=== PATIENT | male | born 1965 | race Hispanic/Latino ===

== ENCOUNTER 2017-04-13 11:46 | Emergency (ER) | payer MEDICARE, OTHER | END 2017-04-13 13:16 | disposition home or self-care (01) | LOC: ERS 11:46 | DX: H61.23 Impacted cerumen, bilateral (principal); J30.9 Allergic rhinitis, unspecified; E78.00 Pure hypercholesterolemia, unspecified; I10 Essential (primary) hypertension; J44.9 Chronic obstructive pulmonary disease, unspecified; Z79.82 Long term (current) use of aspirin; Z79.4 Long term (current) use of insulin; Z79.899 Other long term (current) drug therapy | CPT/HCPCS: 99282 ==

== ENCOUNTER 2017-04-18 17:36 | Emergency (ER) | payer MEDICARE, MEDICAID ==
--- NOTE | 2017-04-18 18:51 | RAD ---
RIGHT FEMUR TWO VIEWS: 04/18/17 HISTORY: 51-year-old male with mid femur pain following a fall. IMPRESSION: No fracture, dislocation, or other significant acute osseous abnormality. POS: [facility]
[2017-04-18] MEDS ORDERED: Ketorolac Tromethamine 30 MG/ML VIAL ONE (18:56)
== END 2017-04-18 18:40 | disposition home or self-care (01) ==
LOC: ERS 17:36
DX: M79.651 Pain in right thigh (principal); E11.9 Type 2 diabetes mellitus without complications; J44.9 Chronic obstructive pulmonary disease, unspecified; I10 Essential (primary) hypertension; E78.00 Pure hypercholesterolemia, unspecified; I25.2 Old myocardial infarction; Z79.4 Long term (current) use of insulin; Z79.82 Long term (current) use of aspirin; Z79.899 Other long term (current) drug therapy; W06.XXXA Fall from bed, initial encounter
CPT/HCPCS: 96374; J1885

== ENCOUNTER 2017-04-19 23:49 | Observation (INO) | payer MEDICARE, MEDICAID ==
[2017-04-20 00:21] LABS: #Basophils 0.1 thou/uL (0.0-0.2); #Eosinphils 0.1 thou/uL (0.0-0.7); #Lymphocytes 2.1 thou/uL (1.20-3.40); #Monocytes 0.4 thou/uL (0.11-0.59); #Neutrophils 3.6 thou/uL (1.40-6.50); %Basophils 0.8 % (0.0-1.0); %Eosinophils 1.5 % (0.0-10.0); %Lymphocytes 33.7 % (21.0-51.0); %Monocytes 6.3 % (0.0-10.0); Hematocrit 41.3 % (42.0-52.0); Mean Platelet Volume 7.7 fL (7.4-10.4); White Blood Cell (WBC) Count 6.2 thou/uL (4.8-10.8)
[2017-04-20] MEDS ORDERED: diphenhydrAMINE 50 MG/ML VIAL ONE (00:31)
[2017-04-20] MEDS ORDERED: Haloperidol Lactate 5 MG/ML VIAL ONE (00:31)
[2017-04-20 00:40] LABS: ALT (SGPT) 36 U/L (8-55); AST (SGOT) 34 U/L (5-34); Alkaline Phosphatase 43 U/L (40-150); Anion Gap 16 mmol/L (10-20); BUN (Urea Nitrogen) 27 mg/dL (8.4-25.7); Bilirubin, Total 0.3 mg/dL (0.2-1.2); Calc. Creatinine Clearance 0 mL/min (70-130); Calcium 8.9 mg/dL (7.8-10.44); Carbon Dioxide 21 mmol/L (22-29); Chloride 101 mmol/L (98-107); Estimated GFR-MDRD 30; Globulin 3.6 g/dL (2.4-3.5); Magnesium 2.3 mg/dL (1.6-2.6); Protein, Total 7.5 g/dL (6.0-8.3)
[2017-04-20 00:42] LABS: Acetaminophen Less than 6.0 mcg/mL (10.0-30.0); Salicylate Less than 8.0 mg/dL (15.0-30.0)
[2017-04-20 00:43] LABS: Anion Gap 6 mmol/L (-14-95); T. Carbon Dioxide 25.8 mmol/L (1.0-85.0); pH (Venous) 7.374 (7.35-7.45)
[2017-04-20] MEDS ORDERED: HumaLOG 300 UNITS/3 ML VIAL SC SCH ×2 (01:15→05:30)
[2017-04-20 01:19] LABS: Bilirubin Negative (Negative); Blood, Urine Moderate (Negative); Glucose, Urine (Dipstick) >=1000 mg/dL (Negative); Ketone, Urine Negative (Negative); Nitrite Negative (Negative); Protein, Urine (Dipstick) 30 mg/dL (Neg-Trace); Urobilinogen 0.2 mg/dL (0.2-1.0)
[2017-04-20 01:24] LABS: Bacteria/HPF None Seen HPF (None Seen); Hyaline Casts/LPF 0-3 HYALINE CAST LPF (0-3 Hyaline); RBC/HPF 0-3 HPF (0-3); Squamous Epithelial None Seen HPF (0-3); WBC/HPF None Seen HPF (0-3)
[2017-04-20] MEDS ORDERED: Multivitamins, Adult 10 ML, Folic Acid 1 MG, Thiamine HCl 100 MG in Dextrose 5 %-0.45 %... IV SCH ×4 (01:30)
[2017-04-20 01:39] LABS: Amphetamine Not Detected (NotDetected); Methadone Not Detected (NotDetected); Methamphetamine Not Detected (NotDetected)
[2017-04-20] MEDS ORDERED: Insulin Regular 300 UNITS/3 ML VIAL ONE (04:00)
[2017-04-20] MEDS ORDERED: Ondansetron ODT 4 MG TAB PO PRN (05:17)
[2017-04-20] MEDS ORDERED: HumaLOG 300 UNITS/3 ML VIAL SC PRN (05:17)
[2017-04-20] MEDS ORDERED: Ondansetron HCl/PF 4 MG/2 ML Vial IVP PRN ×2 (05:17→05:20)
[2017-04-20] MEDS ORDERED: Dextrose 50% Abboject 50 ML SYRINGE SLOW IVP PRN (05:17)
[2017-04-20] MEDS ORDERED: Acetaminophen 650 MG Suppository PR PRN (05:17)
[2017-04-20] MEDS ORDERED: Acetaminophen 325 MG TAB PO PRN ×2 (05:17→05:20)
[2017-04-20] MEDS ORDERED: Calcium Carbonate 500 MG ChewTAB PO PRN (05:17)
[2017-04-20] MEDS ORDERED: Dextrose 5% in Water 1,000 ML IV PRN (05:17)
[2017-04-20] MEDS ORDERED: Ondansetron ODT 4 MG TAB SL PRN (05:20)
[2017-04-20] MEDS ORDERED: Oxazepam 10 MG CAP PO SCH (05:30)
[2017-04-20] MEDS ORDERED: Lactated Ringer's 1,000 ML IV SCH (05:30)
[2017-04-20 06:18] LABS: Anion Gap 12 mmol/L (10-20); BUN (Urea Nitrogen) 25 mg/dL (8.4-25.7); Calc. Creatinine Clearance 0 mL/min (70-130); Calcium 8.6 mg/dL (7.8-10.44); Carbon Dioxide 22 mmol/L (22-29); Chloride 110 mmol/L (98-107); Estimated GFR-MDRD 36
--- NOTE | 2017-04-20 07:51 | CT ---
PRELIMINARY REPORT/[facility]/EMERGENCY AFTER HOURS PROCEDURE: EXAM: CT Head Without Intravenous Contrast CLINICAL HISTORY: ETOH, fall TECHNIQUE: Axial computed tomography images of the head/brain without intravenous contrast. COMPARISON: No relevant prior studies available. FINDINGS: Brain: No acute findings. No hemorrhage. No significant white matter disease. No edema. Ventricles: No acute findings. No ventriculomegaly. Bones/joints: No acute findings. No acute fracture. Soft tissues: No acute findings. Sinuses: Unremarkable as visualized. No acute sinusitis. Mastoid air cells: Unremarkable as visualized. No mastoid effusion. IMPRESSION: No acute intracranial pathology. Thank you for allowing us to participate in the care of your patient. Dictated and Authenticated by: Jennifer Salomon MD 04/20/2017 12:36 AM Central Time ([place] \T\ [place]) FINAL REPORT NONCONTRAST HEAD CT: Date: 04/20/17 HISTORY: Heavy ETOH use. Intoxicated, fall. COMPARISON: 02/12/15. TECHNIQUE: Noncontrast head CT is performed from skull base to skull vertex. FINDINGS: This report is in agreement with the preliminary report by Teddy. No intracranial post-traumatic sequ liz. POS: [facility]
[2017-04-20] MEDS: Sodium Chloride 0.9% 1,000 ML IV SCH ×2 (08:15→18:22)
[2017-04-20] MEDS: Fenofibrate Nanocrystallized 145 MG TAB PO SCH (08:16)
[2017-04-20] MEDS: Aspirin 81 mg Enteric Coated Tablet PO SCH (08:16)
[2017-04-20] MEDS: Gabapentin 300 MG CAP PO SCH ×2 (08:16→21:58)
[2017-04-20] MEDS: Carvedilol 3.125 MG TAB PO SCH ×2 (08:17→21:57)
[2017-04-20] MEDS: Insulin Detemir 100 UNITS/ML 100 UNITS in Admixture Fee 1 EACH SC SCH (08:21)
--- NOTE | 2017-04-20 08:35 | RAD ---
1 VIEW CHEST: Date: 04/20/17 COMPARISON: 03/31/16. HISTORY: Altered mental status. FINDINGS: Portable supine chest demonstrates left-sided transvenous defibrillator, unchanged in position. Ther e are sternotomy wires. Normal cardiac silhouette. Pulmonary vessels and hilum are normal. Costophre kofi angles are clear. No mass. No consolidation. No pneumothorax or osseous abnormalities. IMPRESSION: No acute cardiopulmonary process. POS: [facility]
--- NOTE | 2017-04-20 12:26 | HP-2 ---
DATE OF ADMISSION: 04/20/2017 CODE STATUS: FULL. PRIMARY CARE PROVIDER: [facility]. ATTENDING: Zayra Uribe M.D. RESIDENT: Dr. Mo Soto, PGY1. HISTORIAN: The patient and ER doctor. CHIEF COMPLAINT: Alcohol intoxication and fall. HISTORY OF PRESENT ILLNESS: This is a 51-year-old male that comes in after stating he had too much to drink, said he drank 12 beers and states that his daughter called the EMS because he fel l down. The patient states he cannot remember falling or remember much what else happened. He is a lert and oriented x3 and denies any other symptoms at this time. REVIEW OF SYSTEMS: All review of systems not listed in the HPI except for back pain, reports having back pain, but it is a chronic problem are negative at this time. PAST MEDICAL HISTORY: Diabetes, hypertension, coronary artery disease, normocytic anemia, systolic heart failure with an EF of 45%, mixed hyperlipidemia, and type 2 diabetes mellitus, it is with a di abetic neuropathy. PAST SURGICAL HISTORY: Open heart surgery in 2001 and right knee surgery in the past. ALLERGIES: No known drug allergies. MEDICATIONS: He takes aspirin 81 mg, carvedilol 3.125 mg 2 times daily, Crestor 20 mg 1 time daily, fenofibrate 1 time daily, ferrous sulfate 1 tab twice daily, gabapentin 600 mg twice daily. He sugey es Nitrostat 0.4 mg sublingual as needed for chest pain, Lantus 100 units subcu in the morning and 1 00 units subcu in the evening. He also takes NovoLog 20 units for each meal. FAMILY HISTORY: Dad, he is , killed from [facility], mom with diabetes. SOCIAL HISTORY: He smoked for 2 years, but quit a long time ago. Alcohol use: Drank 12 beers last night and drinks about 2 days a week. Drugs: No illicit drug use reported. PHYSICAL EXAMINATION: VITAL SIGNS: Blood pressure is 119/77, pulse is 97, respirations 18, temperature is 97.6, pulse ox 98% on room air. GENERAL: He is alert and oriented x3, well-developed, obese. He is somewhat altered, sometimes ans wers questions appropriately, but then goes off on tangents likely due to alcohol intoxication. EYES: Pupils are dilated, but reactive. ENT: Oropharynx within normal limit. NECK: Supple, no lymphadenopathy, no thyromegaly, no bruits. CARDIOVASCULAR: Regular rate and rhythm. No murmurs, no gallops. Radial pulses, pedal pulses palp ated bilaterally. RESPIRATORY: Normal breathing effort, no retractions. LUNGS: Clear to auscultation bilaterally. No wheezes or crackles. SKIN: Warm and dry. No lesions, no bruising noted. ABDOMEN: Soft. He is mildly tender to palpation in the epigastric area. Bowel sounds are in all 4 quadrants. Umbilical hernia is noted. His belly is somewhat distended and hard when palpating. MUSCULOSKELETAL: Moves all extremities, full range of motion bilaterally. NEUROLOGIC: No focal neuro deficits. Sensation within normal limit. PSYCHIATRIC: He is somewhat altered likely due to alcohol. LABORATORY DATA: White blood cell count 6.2, hemoglobin 13.4, hematocrit 41.3, MCV of 81.1, platele ts are 237. Sodium is 134, potassium is 4.2, chloride is 101, bicarb 21, BUN is 27, creatinine is 2 .32. Blood glucose was 562. Point of care glucoses was 442, then 395, and then 517. Calcium 8.9, total protein 7.5, albumin is 3.6, total bilirubin 0.3, alkaline phosphatase 43, AST 34 , ALT 36. His alcohol level was 333. His urine drug screen was positive for cocaine. His magnesiu m was 2.3. His UA showed moderate blood, 30 protein, 100 of glucose, red blood cells 83, and white blood cells none, bacteria none. All other UA was negative. His VBG: pH was 7.7. His CO2 was 42, his O2 was 136, and his bicarbonate was 24.5. ASSESSMENT AND PLAN: 1. Hyperglycemia secondary to excessive carbohydrates from beer. We will give him 30 of NovoLog. I will start his home dose of Levemir 100 units b.i.d. per home regimen. We will start him on aggre ssive sliding scale insulin. We will start him on normal saline at a rate of 100. We will start hi m on a consistent carb diet. I am going to check q.4 h. Accu-Cheks and adjust as needed. 2. Acute alcohol intoxication, we will put him on ASE protocol. We will start him on Serax p.r.n. We will give him thiamine b.i.d. We will give him normal saline at a rate of 100. 3. Cocaine abuse. We will just continue to monitor for withdrawal symptoms. 4. Chronic kidney disease 3. His creatinine seems to be at baseline from previous hospital visits for repeat BMP. We will continue normal saline at a rate of 100. 5. Systolic heart failure. We will continue home medication, have him on intravenous fluids a lowe r than a maintenance range. We will need to watch for fluid overload status. Past echo from 2013 s hows ejection fraction of 40%-45%. 6. Hypertension. Continue home medications. 7. Normocytic anemia. CBC is stable. We will continue to monitor as needed.
[2017-04-20 15:39] VITALS: BMI 27.9
--- NOTE | 2017-04-20 16:21 | HP ---
DATE OF SERVICE: 04/20/2017 HISTORY OF PRESENT ILLNESS: The patient is a 51-year-old male with past medical history of diabetes , hypertension, coronary artery disease, systolic CHF, and chronic kidney disease stage 3, who prese nted to the ER with altered mental status. The patient is unable to provide most of the history to his altered mental status. The patient per reports was taken to the ER because he suffered a fall. In the ER, his blood alcohol level was over 300. Patient was also noted to be hyperglycemic and re ceived several doses of short-acting insulin. UDS was positive for cocaine. Patient has been place d on ASE protocol and spent on gentle IV fluids secondary to his heart failure. We will repeat an a lcohol level this morning. Once it returns to normal, he may be able to be discharged. CT of the b rain showed no acute processes. I have reviewed and discussed the H\T\P with Dr. Soto. Repeated pertinent portions of the history and physical exam by myself and agreed with the assessment and plan as documented. Please see the resident's history and physical, assessment and plan.
[2017-04-20] MEDS ORDERED: Insulin Detemir 100 UNITS/ML 100 UNITS in Admixture Fee 1 EACH SC SCH (21:00)
[2017-04-21] MEDS: Sodium Chloride 0.9% 1,000 ML IV SCH (05:16)
--- NOTE | 2017-04-21 08:40 | PDOC.FM ---
- Subjective Subjective: The patient denies any complaints this morning. He reports that he no longer feels drunk. He denies any abdominal pain, nausea, vomiting, dizziness, blurry vision, chest pain, lightheadedness. He is tolerating PO well and is able to walk without difficulty. - Objective MAR Reviewed: Yes Vital Signs & Weight: Vital Signs (12 hours) Temp Pulse Resp BP BP BP Pulse Ox 04/21/17 08:00 96.6 F L 79 18 132/76 96 04/21/17 04:00 97.9 F 81 18 126/67 99 04/21/17 00:00 98.5 F 87 18 128/64 95 Weight Weight 81 kg I&O: 04/20/17 04/21/17 04/22/17 06:59 06:59 06:59 Intake Total 3260 100 Output Total 4650 Balance -1390 100 Result Diagrams: 04/20/17 00:12 04/20/17 05:53 Phys Exam - Physical Examination Constitutional: NAD HEENT: moist MMs Respiratory: no wheezing, no rales, no rhonchi, clear to auscultation bilateral Cardiovascular: RRR, no significant murmur, no rub Gastrointestinal: soft, non-tender, no distention, positive bowel sounds Musculoskeletal: no edema, pulses present Neurological: non-focal, moves all 4 limbs Psychiatric: normal affect, A&O x 3 Dx/Plan (1) Acute alcohol intoxication Code(s): F10.929 - ALCOHOL USE, UNSPECIFIED WITH INTOXICATION, UNSPECIFIED Status: Acute Qualifiers: Complication of substance-induced condition: with unspecified complication Qualified Code(s): F10.929 - Alcohol use, unspecified with intoxication, unspecified Plan: The patient was acutely intoxicated yesterday with blood alcohol level of 333, that only went down to 169 later that day. This AM his level was less than 10. The patient is no longer intoxicated and is feeling much better. He is able to ambulate, tolerate PO, and protect his airway. s/p fluid bolus in the ED with a banana bag and NS @ 100 -d/c today -Rf Technician about alcohol cessation (2) Hyperglycemia Code(s): R73.9 - HYPERGLYCEMIA, UNSPECIFIED Status: Acute Plan: Pt was initially admitted with a Glucose of 562 This improved s/p fluids and insulin -Continue pt home insulin dose -NS @ 100 Hyperglycemia has resolved and glucose has been in 100s (3) Cocaine abuse Code(s): F14.10 - COCAINE ABUSE, UNCOMPLICATED Status: Acute Plan: Pt has history of cocaine abuse -student loan counselor about cessation (4) Diabetes mellitus, type II Status: Acute Qualifiers: Diabetes mellitus complication status: with unspecified complications Diabetes mellitus usp insulin use: with usp use Qualified Code(s) : E11.8 - Type 2 diabetes mellitus with unspecified complications; Z79.4 - halfway (current) use of insulin; Z79.4 - rn long term care (current) use of insulin; Z79.4 - halfway (current) use of insulin; Z79.4 - halfway (current) use of insulin Plan: Pt is insulin dependent diabetes -continue home insulin regimen -SSI -Diabetic diet -Accuchecks ACHS (5) CHF (congestive heart failure) Code(s): I50.9 - HEART FAILURE, UNSPECIFIED Status: Acute Qualifiers: Congestive heart failure type: systolic Congestive heart failure chronicity : chronic Qualified Code(s): I50.22 - Chronic systolic (congestive) heart failure Plan: EF 45% -NS @ 100, will stop fluids today (6) Chronic kidney disease, stage 3 Status: Acute Plan: Pt has CKD stage 3 -Stable, will monitor (7) Hypertension Code(s): I10 - ESSENTIAL (PRIMARY) HYPERTENSION Status: Acute Qualifiers: Hypertension type: essential hypertension Qualified Code(s): I10 - Essential (primary) hypertension Plan: Continue home carvedilol
[2017-04-21] MEDS: Fenofibrate Nanocrystallized 145 MG TAB PO SCH (08:43)
[2017-04-21] MEDS: Gabapentin 300 MG CAP PO SCH (08:44)
[2017-04-21] MEDS: Aspirin 81 mg Enteric Coated Tablet PO SCH (08:44)
[2017-04-21] MEDS: Carvedilol 3.125 MG TAB PO SCH (08:44)
[2017-04-21] MEDS: Insulin Detemir 100 UNITS/ML 100 UNITS in Admixture Fee 1 EACH SC SCH (09:15)
--- NOTE | 2017-04-21 11:43 | ADD-PRG ---
DATE OF SERVICE: 04/21/2017 This is an addendum to the note of Dr. Carmen Rodriguez. Mr. Durham is a pleasant 51-year-old male who was admitted acutely intoxicated 1-2 days ago . He also at that time presented with JUANCHO with a BUN 27, creatinine 2.32. His blood glucose was no randolph to be 562. He was admitted for fluids, diabetic control and protocols for sedation given his al coholism. He did well during the hospitalization and had no complications. His blood glucose was b rought down into the near normal range of 115-122 upon discharge. He states he does not drink daily and occasionally though has been drinking. He was counseled regarding this. Also, his creatinine dropped down to 1.94. He will be discharged to followup in our clinic as needed.
[2017-04-21 12:08] VITALS: BP 144/81; TEMP 98.4
--- NOTE | 2017-04-21 20:00 | DIS-2 ---
DATE OF ADMISSION: 04/20/2017 DATE OF DISCHARGE: 04/21/2017 ADMITTING RESIDENT: Mo Soto MD DISCHARGE RESIDENT: Carmen Rodriguez MD ADMITTING ATTENDING: Zayra Uribe M.D. DISCHARGE ATTENDING: Breezy House MD CONSULTATIONS: None. PROCEDURES: None. IMAGING: Brain CT showed no acute intracranial pathology. Chest x-ray showed no acute cardiopulmon jr process. PRIMARY DIAGNOSIS: 1. Acute alcohol intoxication. 2. Hyperglycemia. SECONDARY DIAGNOSES: 1. Polysubstance abuse. 2. Diabetes type 2. 3. Congestive heart failure with reduced ejection fraction. 4. Chronic kidney disease stage III. 5. Hypertension. DISCHARGE MEDICATIONS: 1. Aspirin 81 mg p.o. daily. 2. Carvedilol 3.125 mg p.o. b.i.d. 3. Fenofibrate 160 mg p.o. daily. 4. Gabapentin 600 mg p.o. b.i.d. 5. Levemir 100 units subcutaneous b.i.d. 6. Nitroglycerin 0.4 mg sublingual every 5 minutes p.r.n. chest pain. 7. Rosuvastatin 20 mg p.o. at bedtime. DISCONTINUED MEDICATIONS: None. HISTORY OF PRESENT ILLNESS AND HOSPITAL COURSE: This is a 51-year-old gentleman with past medical h istory of hypertension, diabetes, congestive heart failure who presented to the Emergency Room with acute alcohol intoxication, was found to have a blood glucose level of 562 as well as an alcohol lev el of 333 and was cocaine positive on his UDS. The patient had altered mental status and was diffic ult to arouse initially as he was acutely intoxicated. The patient was given thiamine and banana ba g in the ED and then he was gently fluid resuscitated with NS at 100 as he has a history of heart fa ilure. The patient's blood sugar was followed and continued to go down over the next 24 hours until it normalized to the 80s to low 100s. The patient was given his home dose of insulin as well as sl iding scale as needed. The patient had an alcohol level that was rechecked about 9 hours after admi ssion and was found to be 169 and then it was rechecked the next day and it was found to be less john n 10. The patient was asymptomatic at this point, able to carry on conversation, alert and oriented x3, able to ambulate without difficulty, tolerating p.o. well, and his hyperglycemia resolved. He was counseled on the importance of not drinking heavily or using cocaine and was discharged in good condition. DISPOSITION: Stable. DISCHARGE INSTRUCTIONS: 1. Location: Home. 2. Diet: Diabetic diet. 3. Activity: No restrictions. 4. Follow up with [facility] within 2 weeks.
== END 2017-04-21 12:15 | disposition home or self-care (01) ==
LOC: ERS 23:49 → ONC 04-20 04:26
PROVIDERS: ADMIT Family Medicine; ATTEND Family Medicine
DX: F10.129 Alcohol abuse with intoxication, unspecified (principal); E11.40 Type 2 diabetes mellitus with diabetic neuropathy, unspecified; E11.22 Type 2 diabetes mellitus with diabetic chronic kidney disease; E11.65 Type 2 diabetes mellitus with hyperglycemia; I13.0 Hypertensive heart and chronic kidney disease with heart failure and stage 1 through stage 4 chronic kidney disease, or unspecified chronic kidney disease; I50.20 Unspecified systolic (congestive) heart failure; N18.3 Chronic kidney disease, stage 3 (moderate); W19.XXXA Unspecified fall, initial encounter; D64.9 Anemia, unspecified; E78.2 Mixed hyperlipidemia; F14.10 Cocaine abuse, uncomplicated; Z79.4 Long term (current) use of insulin; Z79.82 Long term (current) use of aspirin; Z79.899 Other long term (current) drug therapy; Z98.890 Other specified postprocedural states; Z87.891 Personal history of nicotine dependence; Z83.3 Family history of diabetes mellitus
CPT/HCPCS: 70450; 71010; 80048; 80053; 80306; 80307 ×3; 82010; 82330; 82435; 82803; 82962 ×2; 83735; 84132; 84295; 85014; 85025; 94760; 96361 ×3; 96365; 96366; 96372; 96374; 96375; 99291; G0378 ×2; 36415; 36416; 81003; 81015; J1200; J1630; J1815; J3411; J7042; J7050

== ENCOUNTER 2017-08-05 11:16 | Emergency (ER) | payer MEDICARE, MEDICAID | END 2017-08-05 13:39 | disposition home or self-care (01) | LOC: ERS 11:16 | DX: R10.30 Lower abdominal pain, unspecified (principal); E11.9 Type 2 diabetes mellitus without complications; J44.9 Chronic obstructive pulmonary disease, unspecified; I10 Essential (primary) hypertension; I25.2 Old myocardial infarction; E78.00 Pure hypercholesterolemia, unspecified; Z79.899 Other long term (current) drug therapy; Z79.82 Long term (current) use of aspirin; Z79.4 Long term (current) use of insulin | CPT/HCPCS: 99284 ==

== ENCOUNTER 2017-10-10 05:06 | Inpatient (IN) | payer MEDICARE, MEDICAID ==
[2017-10-10 05:38] LABS: #Basophils 0.1 thou/uL (0.0-0.2); #Eosinphils 0.1 thou/uL (0.0-0.7); #Lymphocytes 1.9 thou/uL (1.20-3.40); #Monocytes 0.3 thou/uL (0.11-0.59); #Neutrophils 5.7 thou/uL (1.40-6.50); %Basophils 0.7 % (0.0-1.0); %Lymphocytes 24.1 % (21.0-51.0); %Monocytes 3.4 % (0.0-10.0); %Neutrophils 70.8 % (42.0-75.0); Hemoglobin 15.3 g/dL (14.0-18.0); Mean Corpuscular HGB CONC 32.6 g/dL (32.0-36.0); Mean Corpuscular Hemoglobin 26.3 pg (27.0-31.0); Mean Corpuscular Volume 80.6 fl (80.0-94.0); Mean Platelet Volume 8.3 fL (7.4-10.4); Platelet Count 286 thou/uL (130-400); RBC Distribution Width 13.6 % (11.5-14.5); Red Blood Cell (RBC) Count 5.82 mill/uL (4.70-6.10)
[2017-10-10 05:55] LABS: CKMB 3.9 ng/mL (0-6.6); Troponin I 0.011 ng/mL (< 0.028)
[2017-10-10] MEDS ORDERED: Dextrose 50% Abboject 50 ML SYRINGE ONE (06:09)
[2017-10-10 06:10] LABS: ALT (SGPT) 30 U/L (8-55); AST (SGOT) 38 U/L (5-34); Albumin 4.4 g/dL (3.5-5.0); Alkaline Phosphatase 57 U/L (40-150); Anion Gap 14 mmol/L (10-20); BUN (Urea Nitrogen) 27 mg/dL (8.4-25.7); Bilirubin, Total 0.4 mg/dL (0.2-1.2); CK (CPK) 380 U/L (30-200); Calc. Creatinine Clearance 0 mL/min (70-130); Calcium 9.7 mg/dL (7.8-10.44); Carbon Dioxide 26 mmol/L (22-29); Chloride 103 mmol/L (98-107); Estimated GFR-MDRD 34; Globulin 4.4 g/dL (2.4-3.5); Glucose 72 mg/dL (70-105); Lipase 39 U/L (8-78); Potassium 4.2 mmol/L (3.5-5.1); Protein, Total 8.8 g/dL (6.0-8.3); Sodium 139 mmol/L (136-145)
[2017-10-10 06:46] LABS: Bilirubin Negative (Negative); Blood, Urine Small (Negative); Clarity CLEAR (Clear); Glucose, Urine (Dipstick) 250 mg/dL (Negative); Leukocyte Negative (Negative); Nitrite Negative (Negative); Protein, Urine (Dipstick) 100 mg/dL (Neg-Trace); Specific Gravity, Urine 1.008 (1.002-1.036); Urobilinogen 0.2 mg/dL (0.2-1.0)
[2017-10-10 06:49] LABS: Bacteria/HPF None Seen HPF (None Seen); Hyaline Casts/LPF 0-3 HYALINE CAST LPF (0-3 Hyaline); RBC/HPF 0-3 HPF (0-3); Squamous Epithelial None Seen HPF (0-3); WBC/HPF None Seen HPF (0-3)
[2017-10-10] MEDS ORDERED: Acetaminophen 325 MG TAB PO PRN (07:57)
[2017-10-10] MEDS ORDERED: Ondansetron HCl/PF 4 MG/2 ML Vial IVP PRN (07:57)
[2017-10-10] MEDS ORDERED: Ondansetron ODT 4 MG TAB SL PRN (07:57)
--- NOTE | 2017-10-10 08:33 | RAD ---
PORTABLE UPRIGHT FRONTAL CHEST RADIOGRAPH: DATE: 10/10/17. COMPARISON: 04/20/17. HISTORY: Chest pain. FINDINGS: Stable midline sternotomy wires and dual-lead transvenous AICD. Lungs appear clear. IMPRESSION: No acute findings. POS: [facility]
[2017-10-10 09:05] LABS: Troponin I 0.012 ng/mL (< 0.028)
[2017-10-10 09:33] LABS: Lactic Acid 1.4 mmol/L (0.5-2.2)
[2017-10-10] MEDS ORDERED: Senokot 8.6 MG TAB PO PRN (09:43)
[2017-10-10] MEDS ORDERED: Nitroglycerin 0.4 MG TAB (25 Tab Bottle) PO PRN (09:43)
[2017-10-10] MEDS ORDERED: Ondansetron ODT 4 MG TAB PO PRN (09:43)
[2017-10-10] MEDS ORDERED: Milk Of Magnesia 30 ML UDCUP PO PRN (09:43)
[2017-10-10] MEDS ORDERED: Dextrose 50% Abboject 50 ML SYRINGE SLOW IVP PRN (09:47)
[2017-10-10] MEDS ORDERED: Dextrose 5% in Water 1,000 ML IV PRN (09:47)
[2017-10-10] MEDS: Dextrose 10% in Water 1,000 ML IV SCH ×2 (10:44→19:12)
[2017-10-10 12:43] LABS: Troponin I Less than 0.010 ng/mL (< 0.028)
--- NOTE | 2017-10-10 14:20 | HP ---
DATE OF ADMISSION: 10/10/2017 CHIEF COMPLAINT: Chest pain. HISTORY OF PRESENT ILLNESS: This is a 52-year-old white male with a known history of louis ry artery disease and the pacemaker placement. He has a known history of type 2 diabetes mellitus, p oorly controlled. The patient was in his usual state of health until this morning. At around 4:00 a .m., he woke up with a sudden onset of chest pain with chills and shivers. The patient was noted to have low sugars in the morning, and he basically came to the ER, as the patient woke up with a chest pain, which he never had in the past. When the patient presented to the ER, his blood sugars were in 50s. So, he was started on D50 per hyperglycemia protocol and was closely monitored. He had an EKG , which did not show any evidence of acute ST-segment changes and his troponins were normal. So, the patient was closely monitored, because of the acute onset of chest pain. Patient denies having any nausea or vomiting at this time. No abdominal pain. He was told by his primary care physicians to k eep increasing his insulin because of poor control of blood sugars. He takes 100 units of insulin wh ich he started almost 3 weeks ago, but last night he had some salads, which shows low calorie and john t is why he feels his sugars went down. PAST MEDICAL HISTORY: 1. History of congestive heart failure. 2. History of chronic kidney disease, stage 3. 3. History of hypertension. 4. History of type 2 diabetes mellitus. 5. History of cocaine abuse in the past. 6. History of chronic alcoholism. PAST SURGICAL HISTORY: History of pacemaker placement, history of CABG 4-vessel disease, history of left knee surgery, history of appendectomy. SOCIAL HISTORY: Patient has history of drug abuse in the past. He used to take cocaine. He has a k nown history of smoking and known history of alcohol also. FAMILY HISTORY: No significant family history of coronary artery disease, but otherwise, the patient is not able to give any more history about the family. ALLERGIES: No known drug allergies. HOME MEDICATIONS: 1. Aspirin 81 mg p.o. daily. 2. Coreg 3.125 mg p.o. daily. 3. Fenofibrate 160 mg p.o. daily. 4. Gabapentin 600 mg p.o. b.i.d. 5. Insulin 100 units he takes in the morning and 100 units in the evening of Levemir. 6. Rosuvastatin 20 mg p.o. daily. REVIEW OF SYSTEMS: All 12 systems are reviewed with the patient thoroughly and found to be negative at this time. The following complete review of systems was negative, unless otherwise mentioned in t he HPI or below: Constitutional: Weight loss or gain, ability to conduct usual activities. Skin: Rash, itching. Eyes: Double vision, pain. ENT/Mouth: Nose bleeding, neck stiffness, pain, tendern ess. Cardiovascular: Palpitations, dyspnea on exertion, orthopnea. Respiratory: Shortness of jasper th, wheezing, cough, hemoptysis, fever, or night sweats. Gastrointestinal: Poor appetite, abdominal pain, heartburn, nausea, vomiting, constipation, or diarrhea. Genitourinary: Urgency, frequency, d ysuria, nocturia. Musculoskeletal: Pain, swelling. Neurologic/Psychiatric: Anxiety, depression. Allergy/Immunologic: Skin rash, bleeding tendency. PHYSICAL EXAMINATION: VITAL SIGNS: Blood pressures are 123/80, heart rate is 70, respiratory rate is 18, saturation is 98% on room air. GENERAL: The patient is moderately built and moderately nourished, does not appear to be in acute di stress at this time, is alert and oriented x3. HEENT: Atraumatic, normocephalic. PERRLA. Extraocular movements are intact. Oral mucosa is pink a nd moist. CARDIOVASCULAR: S1, S2 normal. No murmurs, rubs, or gallops. LUNGS: Bilateral air entry is equal. No wheezing, no crackles. ABDOMEN: Soft and nontender. No guarding, no rebound tenderness. Bowel sounds normal. MUSCULOSKELETAL: No calf tenderness. No pedal edema. No joint tenderness. No joint swelling. SKIN: No cyanosis, no erythema, no rash, no pallor. CENTRAL NERVOUS SYSTEM: Cranial nerve examination II-XII are intact. No focal deficit noted. PSYCHIATRIC: No suicidal ideation, no signs of holly, no signs of depression, no signs of agitation was noted. LYMPHATICS: No evidence of any generalized lymph nodes were noted. NECK: No thyromegaly. No JVD was noted. LABORATORY DATA: Sodium is 139, potassium is 4.2, BUN is 27, creatinine is 2.04. His blood sugar is 153. Troponin 0.012. WBC 8.0, hemoglobin 15.3, hematocrit 46.9, platelets are no rmal. UA was positive for blood sugars. No urine drug screen was done. Chest x-ray was done, unremarkable. EKG, no evidence of any ST-segment changes. ASSESSMENT: 1. Acute hypoglycemia. 2. Acute kidney injury. 3. Acute chest pain, rule out myocardial infarction. 4. History of coronary artery disease with coronary artery bypass grafting. 5. History of congestive heart failure. 6. Hypertension. PLAN: 1. Plan is to closely monitor this patient. We will continue to monitor his serial troponins every 6 hours and plan to do his cardiac stress test tomorrow, if the troponins remain negative. 2. The patient has hypoglycemia, so he is on D5 at this time. We will closely monitor. We will maurizio id any Levemir. He is on pretty high dose of 100 units Levemir. So, plan to closely monitor. This might take more than 2 midnights, but if the patient responds earlier with correction of his blood marcelo gars, plan to discharge him tomorrow. 3. The patient has history of coronary artery bypass grafting with no recent stress test was done. So, we will closely monitor. 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 4. Hypertension is well controlled. We will restart the patient's home medications. 5. The patient has history of hyperlipidemia. We will restart the patient's home medications, fenof ibrate and statin. 6. Deep venous thrombosis prophylaxis, Lovenox. I spent 75 minutes with this patient.
[2017-10-10 18:47] LABS: Cocaine Metabolite Screen Not Detected (NotDetected); Medtox Reader # READER 1; Methamphetamine Not Detected (NotDetected); Opiate Screen Not Detected (NotDetected); Phencyclidine (PCP) Not Detected (NotDetected); THC/Cannabinoid Screen Not Detected (NotDetected)
[2017-10-10 18:48] LABS: Amphetamine Not Detected (NotDetected); Barbiturates Screen Not Detected (NotDetected); Benzodiazepine Screen Not Detected (NotDetected); Medtox Control Line Valid? VALID (VALID); Methadone Not Detected (NotDetected); Oxycodone Screen Not Detected (NotDetected); Tricyclic Screen Not Detected (NotDetected)
[2017-10-10] MEDS: Rosuvastatin 20 MG TAB PO SCH (21:53)
[2017-10-10] MEDS: Famotidine 20 MG TAB PO SCH (21:53)
[2017-10-10] MEDS: Carvedilol 3.125 MG TAB PO SCH (21:54)
[2017-10-10] MEDS: Gabapentin 300 MG CAP PO SCH (21:54)
[2017-10-10] MEDS: HumaLOG 300 UNITS/3 ML VIAL SC PRN (22:08)
[2017-10-11 04:50] LABS: #Eosinphils 0.1 thou/uL (0.0-0.7); #Lymphocytes 1.6 thou/uL (1.20-3.40); #Monocytes 0.6 thou/uL (0.11-0.59); #Neutrophils 6.2 thou/uL (1.40-6.50); %Basophils 0.5 % (0.0-1.0); %Eosinophils 0.9 % (0.0-10.0); %Lymphocytes 18.8 % (21.0-51.0); %Monocytes 6.7 % (0.0-10.0); %Neutrophils 73.1 % (42.0-75.0); Hemoglobin 13.5 g/dL (14.0-18.0); Mean Corpuscular HGB CONC 33.5 g/dL (32.0-36.0); Mean Corpuscular Hemoglobin 27.2 pg (27.0-31.0); Mean Corpuscular Volume 81.3 fl (80.0-94.0); Platelet Count 243 thou/uL (130-400); RBC Distribution Width 13.4 % (11.5-14.5); Red Blood Cell (RBC) Count 4.97 mill/uL (4.70-6.10); White Blood Cell (WBC) Count 8.5 thou/uL (4.8-10.8)
[2017-10-11 05:04] LABS: Anion Gap 9 mmol/L (10-20); BUN (Urea Nitrogen) 16 mg/dL (8.4-25.7); Calc. Creatinine Clearance 59 mL/min (70-130); Calcium 8.8 mg/dL (7.8-10.44); Carbon Dioxide 24 mmol/L (22-29); Cardiac Risk 4.4 (Less than 4.5); Chloride 107 mmol/L (98-107); Cholesterol 136 mg/dl (< 200 Desired); Estimated GFR-MDRD 50; Glucose 158 mg/dL (70-105); HDL Cholesterol 31 mg/dL (>60 Neg Risk); LDL Cholesterol, Calculated 75 mg/dL; Potassium 3.7 mmol/L (3.5-5.1); Sodium 136 mmol/L (136-145); Triglycerides 150 mg/dL (Less than 150)
[2017-10-11] MEDS: Aspirin 81 mg Enteric Coated Tablet PO SCH (08:01)
[2017-10-11] MEDS: Enoxaparin Sodium 40 MG/0.4 ML SYRINGE SC SCH (08:01)
[2017-10-11] MEDS: Gabapentin 300 MG CAP PO SCH ×2 (08:01→21:09)
[2017-10-11] MEDS: Fenofibrate Nanocrystallized 145 MG TAB PO SCH (08:01)
[2017-10-11] MEDS ORDERED: Aspirin 325 MG TAB PO SCH (09:00)
[2017-10-11] MEDS ORDERED: Non-Formulary Item 1 EACH (Insulin Detemir 100 Units/Ml [Levemir] 50 UNIT) SC SCH (09:13)
[2017-10-11] MEDS: Carvedilol 3.125 MG TAB PO SCH ×2 (12:25→21:09)
[2017-10-11 13:01] VITALS: BMI 25.0
--- NOTE | 2017-10-11 13:06 | NM ---
NUCLEAR MEDICINE CARDIAC STRESS TEST WITH EJECTION FRACTION: HISTORY: Chest pain. CHF. Hypertension. Diabetes. COMPARISON: Multiple prior examinations, most recent in 2014. TECHNIQUE: Stress and rest was performed after the intravenous administration of 30 and 9 mCi technetium-99m ses tamibi intravenously, respectively. FINDINGS: Adequate left ventricular uptake of radiotracer. There is an inferolateral wall fixed defect. No reve rsible ischemia. There is hypokinesis of the inferior wall, as well as the inferior septum and latera l wall. The calculated ejection fraction is 45%. IMPRESSION: Fixed inferolateral wall defect with hypokinesis. No evidence of reversible ischemia. POS: [facility]
[2017-10-11] MEDS ORDERED: ADENOSINE 60 MG/20 ML VIAL ONE (15:44)
--- NOTE | 2017-10-11 16:36 | PDOC.PN ---
- Subjective Encounter Start Date: 10/11/17 Encounter Start Time: 14:00 Patient is seen todeay, alert asnd oriented. He still has low normal BG, has Abnormal Stress test with hypokinesis. - Objective Resuscitation Status: Resuscitation Status FULL:Full Resuscitation MAR Reviewed: Yes Vital Signs & Weight: Vital Signs (12 hours) Temp Pulse Resp BP BP Pulse Ox 10/11/17 16:10 98.0 F 94 16 118/74 98 10/11/17 12:05 98.2 F 90 18 106/67 99 10/11/17 07:56 98.1 F 78 16 107/70 96 10/11/17 07:55 98.1 F 78 16 96 10/11/17 05:47 98 Weight Admit Weight 169 lb 4.8 oz Weight 169 lb 4.8 oz I&O: 10/10/17 10/11/17 10/12/17 06:59 06:59 06:59 Intake Total 1400 Output Total 3100 Balance -1700 Result Diagrams: 10/11/17 04:38 10/11/17 04:38 Additional Labs: Accuchecks 10/11/17 10/11/17 10/10/17 06:06 03:36 20:36 POC Glucose 135 H 204 H 341 H 10/10/17 16:37 POC Glucose 64 L Radiology Reviewed by me: Yes Phys Exam - Physical Examination HEENT: PERRLA, moist MMs Neck: no nodes, no JVD Respiratory: no wheezing, no rales Cardiovascular: RRR, no significant murmur Gastrointestinal: soft, non-tender Musculoskeletal: no edema, pulses present Neurological: non-focal, normal sensation Lymphatic: no nodes Psychiatric: normal affect, A&O x 3 Skin: no rash, normal turgor Dx/Plan (1) Acute metabolic encephalopathy due to hypoglycemia Code(s): G93.41 - METABOLIC ENCEPHALOPATHY; E16.2 - HYPOGLYCEMIA, UNSPECIFIED Status: Resolved Comment: Resolved Now. (2) ACS (acute coronary syndrome) Code(s): I24.9 - ACUTE ISCHEMIC HEART DISEASE, UNSPECIFIED Status: Acute Comment: Abnormal Wall motion noted on Stress echo, Will Consult Cardiology, pt is high risk. (3) JUANCHO (acute kidney injury) Code(s): N17.9 - ACUTE KIDNEY FAILURE, UNSPECIFIED Status: Acute Comment: Improved with IV fluids. (4) Diabetes mellitus, type II Status: Acute Qualifiers: Comment: Pt is on 100units levemir BID, will do only 50 untis Sc today, high risk for hypoglycemia. (5) Hx of CABG Status: Acute (6) Hyperlipidemia Code(s): E78.5 - HYPERLIPIDEMIA, UNSPECIFIED Status: Acute Comment: Continue on Statins (7) Hypertension Code(s): I10 - ESSENTIAL (PRIMARY) HYPERTENSION Status: Acute Qualifiers: Comment: Continee on home Meds. (8) Coronary artery disease Code(s): I25.10 - ATHSCL HEART DISEASE OF [place] CORONARY ARTERY W/O ANG PCTRS Status: Chronic Comment: Continue on Aspirin and BB. - Plan cont current plan of care, PT/OT, out of bed/ambulate, DVT proph w/lovenox * . - Discharge Day Encounter end time: 14:35 Review of Systems - Review of Systems Eyes: negative: Pain, Vision Change, Conjunctivae Inflammation, Eyelid Inflammation, Redness, Other Respiratory: negative: Cough, Dry, Shortness of Breath, Hemoptysis, SOB with Excertion, Pleuritic Pain, Sputum, Wheezing Cardiovascular: negative: chest pain, palpitations, orthopnea, paroxysmal nocturnal dyspnea, edema, light headedness, other Gastrointestinal: negative: Nausea, Vomiting, Abdominal Pain, Diarrhea, Constipation, Melena, Hematochezia, Other Musculoskeletal: negative: Neck Pain, Shoulder Pain, Arm Pain, Back Pain, Hand Pain, Leg Pain, Foot Pain, Other - Medications/Allergies Allergies/Adverse Reactions: Allergies Allergy/AdvReac Type Severity Reaction Status Date / Time No Known Drug Allergies Allergy Verified 12/29/14 00:21 Medications: Current Medications Hydrocodone Bitart/Acetaminophen ([place] 5/325) 1 tab PO Q4H PRN PRN Reason: Moderate Pain (4-6) Aspirin (Ecotrin) 81 mg PO DAILY [facility] Last Admin: 10/11/17 08:01 Dose: 81 mg Carvedilol (Coreg) 3.125 mg PO BID [facility] Last Admin: 10/11/17 12:25 Dose: Not Given Dextrose/Water (Dextrose 50%) 25 gm SLOW IVP PRN PRN PRN Reason: Hypoglycemia Enoxaparin Sodium (Lovenox) 40 mg SC 0900 [facility] Last Admin: 10/11/17 08:01 Dose: 40 mg Famotidine (Pepcid) 20 mg PO Q24HR [facility] Last Admin: 10/10/17 21:53 Dose: 20 mg Fenofibrate (Tricor) 145 mg PO DAILY [facility] Last Admin: 10/11/17 08:01 Dose: 145 mg Gabapentin (Neurontin) 600 mg PO BID [facility] Last Admin: 10/11/17 08:01 Dose: 600 mg Glucagon (Glucagon) 1 mg IM PRN PRN PRN Reason: Hypoglycemia Dextrose/Water (D5w) 1,000 mls @ 0 mls/hr IV .Q0M PRN; As Directed PRN Reason: Hypoglycemia Insulin Detemir 50 units/ (Syringe) 0.5 mls @ 0 mls/[facility] [place]ulin Human Lispro (Humalog) 0 units SC .MODERATE SLIDING SC PRN PRN Reason: Moderate Correctional Scale Insulin Human Lispro (Humalog) 0 units SC .BEDTIME SLIDING SC PRN PRN Reason: Bedtime Correctional Scale Last Admin: 10/10/17 22:08 Dose: 4 unit Magnesium Hydroxide (Milk Of Magnesium) 30 ml PO DAILYPRN PRN PRN Reason: Constipation Nitroglycerin (Nitrostat) 0.4 mg PO Q5MIN PRN PRN Reason: Chest Pain Ondansetron HCl (Zofran Odt) 4 mg PO Q6H PRN PRN Reason: Nausea/Vomiting Rosuvastatin Calcium (Crestor) 20 mg PO [facility] Last Admin: 10/10/17 21:53 Dose: 20 mg Senna (Senokot) 2 tab PO HSPRN PRN PRN Reason: Constipation Sodium Chloride (Flush - Normal Saline) 10 ml IVF PRN PRN PRN Reason: Saline Flush
--- NOTE | 2017-10-11 18:45 | CON ---
DATE OF CONSULTATION: 10/11/2017 PRIMARY CUSTOM MILLER: Dr. Dain Devine. REASON FOR CONSULTATION: Chest pain with abnormal stress test. HISTORY OF PRESENT ILLNESS: Mr. Samuel Durham is a 52-year-old gentleman with history of coronary ar sue disease, admitted with recurrent chest pain. Mr. Durham states he has been having substernal pain that is the area he points to. He went to the [facility]. He did receive some nitroglycerin and did say that discomfort improved. He i s pain free now. The patient did have a low blood sugar. The EKG did not show any acute changes. The troponins were normal. He is pain free now. PAST MEDICAL HISTORY: 1. Congestive heart failure. 2. Chronic kidney disease stage 3. 3. Hypertension. 4. Diabetes. PAST SURGICAL HISTORY: 1. Previous pacemaker defibrillator. 2. Previous bypass surgery. SOCIAL HISTORY: Previous history of drug abuse. FAMILY HISTORY: No family history of coronary disease. ALLERGIES: None known. REVIEW OF SYSTEMS: CONSTITUTIONAL: No significant weight gain or loss. VISION: No changes. HEARING: No changes. PULMONARY: No cough or wheezing. GASTROINTESTINAL: No nausea, vomiting, diarrhea. SKIN: No rashes. NEUROLOGIC: No unilateral weakness or numbness. PSYCHIATRIC: No unusual depression or anxiety. PHYSICAL EXAMINATION: GENERAL: It is a pleasant 52-year-old man, in no distress. VITAL SIGNS: Blood pressure 106/67, pulse 90. HEENT: Eyes: Sclerae nonicteric. Mouth: Mucous membranes moist. NECK: Supple. No lymphadenopathy. LUNGS: Clear. CARDIAC: Normal S1, normal S2. There is no murmur, rub or gallop. ABDOMEN: Soft, nontender. EXTREMITIES: No clubbing or cyanosis. No edema. SKIN: Warm and dry. PSYCHIATRIC: Mood and affect normal. NEUROLOGIC: Grossly normal. PERTINENT LABORATORY AND X-RAY FINDINGS: The creatinine is 1.48, estimated GFR is 50, blood glucose is 135, LDL cholesterol 75. Troponin level yesterday was normal. There were no repeats. Stress emery t revealed an ejection fraction 45% fixed inferolateral wall defect with hypokinesis looks like a pre vious infarct. ASSESSMENT: 1. Previous coronary bypass grafting. 2. Recurrent substernal chest pain, probably angina. 3. Diabetes. 4. Previous bypass surgery as mentioned. Dr. Devine note indicates that the patient had a CROWELL to the LAD, vein graft to obtuse marginal and posterior descending artery. PLAN: 1. He is on aspirin. 2. He is on statin therapy. 3. Consideration for a cardiac catheterization in view of the chest pain with a fixed defect as outl ined above.
[2017-10-11] MEDS: Famotidine 20 MG TAB PO SCH (21:08)
[2017-10-11] MEDS: Rosuvastatin 20 MG TAB PO SCH (21:09)
[2017-10-12] MEDS: Fenofibrate Nanocrystallized 145 MG TAB PO SCH (07:56)
[2017-10-12] MEDS: Enoxaparin Sodium 40 MG/0.4 ML SYRINGE SC SCH (07:56)
[2017-10-12] MEDS: Aspirin 81 mg Enteric Coated Tablet PO SCH (07:56)
[2017-10-12] MEDS: Carvedilol 3.125 MG TAB PO SCH ×2 (07:56→20:17)
[2017-10-12] MEDS: INSULIN DETEMIR SC SCH (07:57)
[2017-10-12] MEDS: Gabapentin 300 MG CAP PO SCH ×2 (07:57→20:16)
[2017-10-12] MEDS ORDERED: INSULIN DETEMIR SC SCH (09:00)
[2017-10-12] MEDS: HumaLOG 300 UNITS/3 ML VIAL SC PRN (13:23)
--- NOTE | 2017-10-12 13:33 | PDOC.CTH ---
<Carmen Ruelas - Last Filed: 10/12/17 13:31> Cardiology Progress Note - Subjective Patient resting, awakens easily. Denies chest pain, shortness of breath, currently on room air. Has been ambulating in [place] without difficulty. Denies orthopnea, PND. States glucose has "been up and down". - Objective Vital Signs Temp Pulse Resp BP Pulse Ox 10/12/17 11:26 97.8 F 73 18 119/62 98 10/12/17 07:53 97.9 F 83 16 114/77 97 10/12/17 04:00 98.3 F 75 18 108/70 97 Admit Weight 169 lb 4.8 oz Weight 167 lb 6.4 oz 10/11/17 10/12/17 10/13/17 06:59 06:59 06:59 Intake Total 1400 720 Output Total 3100 1075 Balance -1700 -355 - Physical Examination General/Neuro: alert & oriented x3, NAD Neck: no JVD present Lungs: CTA, unlabored respirations Heart: RRR Abdomen: NT/ND, soft - Telemetry Telemetry Rhythm: A Paced, V Sensed/SR - Labs Result Diagrams: 10/11/17 04:38 10/11/17 04:38 Troponin/CKMB CK-MB (CK-2) 3.9 ng/mL (0-6.6) 10/10/17 05:29 Troponin I Less than 0.010 ng/mL (< 0.028) 10/10/17 12:01 - Assessment/Plan 1. 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 Troponins negative. Consideration to repeat [facility]-Dr. Devine to see in am, NPO p/ [place] 2.CAD-hx of CABG, cont ASA, statin, BB. 3.Chronic systolic HF-most recent EF %45, appears euvolemic, no ACEi/ARB 2/2 renal dysfunction 4..HTN-adequately controlled 5.CKD-stable, eGFR 50 6..Hx PM/AICD <Fahad Arita - Last Filed: 10/12/17 15:49> Cardiology Progress Note - Objective Vital Signs Temp Pulse Resp BP Pulse Ox 10/12/17 11:26 97.8 F 73 18 119/62 98 10/12/17 07:53 97.9 F 83 16 114/77 97 10/12/17 04:00 98.3 F 75 18 108/70 97 Admit Weight 169 lb 4.8 oz Weight 167 lb 6.4 oz 10/11/17 10/12/17 10/13/17 06:59 06:59 06:59 Intake Total 1400 720 Output Total 3100 1075 Balance -1700 -355 - Labs Result Diagrams: 10/11/17 04:38 10/11/17 04:38 Troponin/CKMB CK-MB (CK-2) 3.9 ng/mL (0-6.6) 10/10/17 05:29 Troponin I Less than 0.010 ng/mL (< 0.028) 10/10/17 12:01 Attending Addendum - Attending Addendum Date/Time: 10/12/17 [id number] I personally evaluated the patient and discussed the management with Carmen Ruelas METAL FURNACE OPERATOR I agree with the History, Examination, Assessment and Plan documented above with any addition or exceptions noted below.
--- NOTE | 2017-10-12 14:01 | PDOC.PN ---
- Subjective Encounter Start Date: 10/12/17 Encounter Start Time: 10:00 PAtient is seen today, alert and oriented. Waiting for Casrdiac cath tomorrow. He did c/o left Precordium twitching last night. - Objective Resuscitation Status: Resuscitation Status FULL:Full Resuscitation MAR Reviewed: Yes Vital Signs & Weight: Vital Signs (12 hours) Temp Pulse Resp BP Pulse Ox 10/12/17 11:26 97.8 F 73 18 119/62 98 10/12/17 07:53 97.9 F 83 16 114/77 97 10/12/17 04:00 98.3 F 75 18 108/70 97 Weight Admit Weight 169 lb 4.8 oz Weight 167 lb 6.4 oz I&O: 10/11/17 10/12/17 10/13/17 06:59 06:59 06:59 Intake Total 1400 720 Output Total 3100 1075 Balance -1700 -355 Result Diagrams: 10/11/17 04:38 10/11/17 04:38 Additional Labs: Accuchecks 10/12/17 10/12/17 10/12/17 13:23 12:10 08:14 POC Glucose 214 H 287 H 84 10/12/17 10/12/17 10/11/17 06:34 00:37 20:45 POC Glucose 143 H 267 H 198 H 10/11/17 16:34 POC Glucose 136 H Radiology Reviewed by me: Yes Phys Exam - Physical Examination HEENT: PERRLA, moist MMs Neck: no nodes, no JVD Respiratory: no wheezing, no rales Cardiovascular: RRR, no significant murmur Gastrointestinal: soft, non-tender Musculoskeletal: no edema, pulses present Neurological: non-focal, normal sensation Psychiatric: normal affect, A&O x 3 Dx/Plan (1) Acute metabolic encephalopathy due to hypoglycemia Code(s): G93.41 - METABOLIC ENCEPHALOPATHY; E16.2 - HYPOGLYCEMIA, UNSPECIFIED Status: Resolved Comment: Resolved Now. (2) ACS (acute coronary syndrome) Code(s): I24.9 - ACUTE ISCHEMIC HEART DISEASE, UNSPECIFIED Status: Acute Comment: Abnormal Wall motion noted on Stress echo, with fixed defect, Cardiology planned for cath in Am. (3) JUANCHO (acute kidney injury) Code(s): N17.9 - ACUTE KIDNEY FAILURE, UNSPECIFIED Status: Acute Comment: Improved with IV fluids. (4) Diabetes mellitus, type II Status: Acute Qualifiers: Comment: Pt is on 100units levemir BID, will do only 50 untis Sc today, high risk for hypoglycemia. (5) Hx of CABG Status: Acute (6) Hyperlipidemia Code(s): E78.5 - HYPERLIPIDEMIA, UNSPECIFIED Status: Acute Comment: Continue on Statins (7) Hypertension Code(s): I10 - ESSENTIAL (PRIMARY) HYPERTENSION Status: Acute Qualifiers: Comment: Continee on home Meds. (8) Coronary artery disease Code(s): I25.10 - ATHSCL HEART DISEASE OF [place] CORONARY ARTERY W/O ANG PCTRS Status: Chronic Comment: Continue on Aspirin and BB. - Plan cont current plan of care, PT/OT, social worker delinquency prevention, DVT proph w/lovenox * . - Discharge Day Encounter end time: 10:35 Review of Systems - Review of Systems Constitutional: negative: fever, chills, sweats, weakness, malaise, other Eyes: negative: Pain, Vision Change, Conjunctivae Inflammation, Eyelid Inflammation, Redness, Other ENT: negative: Ear Pain, Ear Discharge, Nose Pain, Nose Discharge, Nose Congestion, Mouth Pain, Mouth Swelling, Throat Pain, Throat Swelling, Other Respiratory: negative: Cough, Dry, Shortness of Breath, Hemoptysis, SOB with Excertion, Pleuritic Pain, Sputum, Wheezing Cardiovascular: negative: chest pain, palpitations, orthopnea, paroxysmal nocturnal dyspnea, edema, light headedness, other Gastrointestinal: negative: Nausea, Vomiting, Abdominal Pain, Diarrhea, Constipation, Melena, Hematochezia, Other Musculoskeletal: negative: Neck Pain, Shoulder Pain, Arm Pain, Back Pain, Hand Pain, Leg Pain, Foot Pain, Other - Medications/Allergies Allergies/Adverse Reactions: Allergies Allergy/AdvReac Type Severity Reaction Status Date / Time No Known Drug Allergies Allergy Verified 12/29/14 00:21 Medications: Current Medications Hydrocodone Bitart/Acetaminophen ([place] 5/325) 1 tab PO Q4H PRN PRN Reason: Moderate Pain (4-6) Aspirin (Ecotrin) 81 mg PO DAILY [facility] Last Admin: 10/12/17 07:56 Dose: 81 mg Carvedilol (Coreg) 3.125 mg PO BID [facility] Last Admin: 10/12/17 07:56 Dose: 3.125 mg Dextrose/Water (Dextrose 50%) 25 gm SLOW IVP PRN PRN PRN Reason: Hypoglycemia Enoxaparin Sodium (Lovenox) 40 mg SC 0900 [facility] Last Admin: 10/12/17 07:56 Dose: 40 mg Famotidine (Pepcid) 20 mg PO Q24HR [facility] Last Admin: 10/11/17 21:08 Dose: 20 mg Fenofibrate (Tricor) 145 mg PO DAILY [facility] Last Admin: 10/12/17 07:56 Dose: 145 mg Gabapentin (Neurontin) 600 mg PO BID [facility] Last Admin: 10/12/17 07:57 Dose: 600 mg Glucagon (Glucagon) 1 mg IM PRN PRN PRN Reason: Hypoglycemia Dextrose/Water (D5w) 1,000 mls @ 0 mls/hr IV .Q0M PRN; As Directed PRN Reason: Hypoglycemia Insulin Detemir 50 units/ (Syringe) 0.5 mls @ 0 mls/hr SC QAM [facility] Last Admin: 10/12/17 07:57 Dose: 0.5 mls Insulin Human Lispro (Humalog) 0 units SC .MODERATE SLIDING SC PRN PRN Reason: Moderate Correctional Scale Last Admin: 10/12/17 13:23 Dose: 4 units Insulin Human Lispro (Humalog) 0 units SC .BEDTIME SLIDING SC PRN PRN Reason: Bedtime Correctional Scale Last Admin: 10/10/17 22:08 Dose: 4 unit Magnesium Hydroxide (Milk Of Magnesium) 30 ml PO DAILYPRN PRN PRN Reason: Constipation Nitroglycerin (Nitrostat) 0.4 mg PO Q5MIN PRN PRN Reason: Chest Pain Ondansetron HCl (Zofran Odt) 4 mg PO Q6H PRN PRN Reason: Nausea/Vomiting Rosuvastatin Calcium (Crestor) 20 mg PO HS [facility] Last Admin: 10/11/17 21:09 Dose: 20 mg Senna (Senokot) 2 tab PO HSPRN PRN PRN Reason: Constipation Sodium Chloride (Flush - Normal Saline) 10 ml IVF PRN PRN PRN Reason: Saline Flush Last Admin: 10/11/17 21:09 Dose: 10 ml
[2017-10-12] MEDS: HYDROcodone/Acetaminophen 5/325 mg Tablet PO PRN (17:31)
[2017-10-12] MEDS: Famotidine 20 MG TAB PO SCH (20:17)
[2017-10-12] MEDS: Rosuvastatin 20 MG TAB PO SCH (20:17)
[2017-10-13] MEDS: Aspirin 81 mg Enteric Coated Tablet PO SCH (08:29)
[2017-10-13] MEDS: Famotidine 20 MG TAB PO SCH ×2 (08:29→20:59)
[2017-10-13] MEDS: Carvedilol 3.125 MG TAB PO SCH (08:29)
[2017-10-13] MEDS: Fenofibrate Nanocrystallized 145 MG TAB PO SCH (08:29)
[2017-10-13] MEDS: Gabapentin 300 MG CAP PO SCH ×2 (08:29→20:59)
[2017-10-13] MEDS ORDERED: Carvedilol 6.25 MG TAB PO SCH (09:00)
[2017-10-13] MEDS: INSULIN DETEMIR SC SCH (09:14)
[2017-10-13] MEDS ORDERED: Carvedilol 3.125 MG TAB PO SCH (10:00)
[2017-10-13] MEDS: HumaLOG 300 UNITS/3 ML VIAL SC PRN ×2 (12:02→20:59)
--- NOTE | 2017-10-13 14:26 | PDOC.PN ---
- Subjective Encounter Start Date: 10/13/17 Encounter Start Time: 11:00 Patient is seen today, Alert and oriented, pt refused Cath after Risks explained by dr. Devine, but pt has poor Fucntioning pacemaker which needed battery change. - Objective Resuscitation Status: Resuscitation Status FULL:Full Resuscitation MAR Reviewed: Yes Vital Signs & Weight: Vital Signs (12 hours) Temp Pulse Resp BP Pulse Ox 10/13/17 11:23 97.6 F 69 18 109/70 97 10/13/17 07:39 97.8 F 72 18 136/81 99 10/13/17 04:00 97.9 F 72 17 118/76 96 Weight Admit Weight 169 lb 4.8 oz Weight 167 lb 6.4 oz I&O: 10/12/17 10/13/17 10/14/17 06:59 06:59 06:59 Intake Total 720 1480 Output Total 1076 0455 575 Balance -355 -1595 -575 Result Diagrams: 10/11/17 04:38 10/11/17 04:38 Additional Labs: Accuchecks 10/13/17 10/13/17 10/13/17 12:02 08:09 04:34 POC Glucose 300 H 116 H 194 H 10/12/17 10/12/17 21:08 16:29 POC Glucose 147 H 118 H Radiology Reviewed by me: Yes Phys Exam - Physical Examination HEENT: PERRLA, moist MMs Neck: no nodes Respiratory: no wheezing, no rales Cardiovascular: RRR, no significant murmur Gastrointestinal: soft, non-tender Musculoskeletal: no edema, pulses present Neurological: non-focal, normal sensation Lymphatic: no nodes Psychiatric: normal affect, A&O x 3 Dx/Plan (1) Acute metabolic encephalopathy due to hypoglycemia Code(s): G93.41 - METABOLIC ENCEPHALOPATHY; E16.2 - HYPOGLYCEMIA, UNSPECIFIED Status: Resolved Comment: Resolved Now. (2) ACS (acute coronary syndrome) Code(s): I24.9 - ACUTE ISCHEMIC HEART DISEASE, UNSPECIFIED Status: Acute Comment: Abnormal Wall motion noted on Stress echo, with fixed defect, No cath per patient. (3) JUANCHO (acute kidney injury) Code(s): N17.9 - ACUTE KIDNEY FAILURE, UNSPECIFIED Status: Acute Comment: Improved with IV fluids. (4) Diabetes mellitus, type II Status: Acute Qualifiers: Comment: Pt is on 100units levemir BID, will do only 50 untis Sc today, high risk for hypoglycemia. (5) Hx of CABG Status: Acute (6) Hyperlipidemia Code(s): E78.5 - HYPERLIPIDEMIA, UNSPECIFIED Status: Acute Comment: Continue on Statins (7) Hypertension Code(s): I10 - ESSENTIAL (PRIMARY) HYPERTENSION Status: Acute Qualifiers: Comment: Continee on home Meds. (8) Coronary artery disease Code(s): I25.10 - ATHSCL HEART DISEASE OF [place] CORONARY ARTERY W/O ANG PCTRS Status: Chronic Comment: Continue on Aspirin and BB. (9) Pacemaker at end of battery life Code(s): Z45.010 - ENCNTR FOR CHECKING AND TEST OF CARD PACEMAKER PULSE GNRTR Status: Acute Comment: Planned for Battry change today. - Plan cont current plan of care, PT/OT, respiratory therapy, incentive spirometry, DVT proph w/lovenox * . - Discharge Day Encounter end time: 11:35 Review of Systems - Review of Systems Eyes: negative: Pain, Vision Change, Conjunctivae Inflammation, Eyelid Inflammation, Redness, Other Respiratory: negative: Cough, Dry, Shortness of Breath, Hemoptysis, SOB with Excertion, Pleuritic Pain, Sputum, Wheezing Cardiovascular: negative: chest pain, palpitations, orthopnea, paroxysmal nocturnal dyspnea, edema, light headedness, other Gastrointestinal: negative: Nausea, Vomiting, Abdominal Pain, Diarrhea, Constipation, Melena, Hematochezia, Other Musculoskeletal: negative: Neck Pain, Shoulder Pain, Arm Pain, Back Pain, Hand Pain, Leg Pain, Foot Pain, Other - Medications/Allergies Allergies/Adverse Reactions: Allergies Allergy/AdvReac Type Severity Reaction Status Date / Time No Known Drug Allergies Allergy Verified 12/29/14 00:21 Medications: Current Medications Hydrocodone Bitart/Acetaminophen ([place] 5/325) 1 tab PO Q4H PRN PRN Reason: Moderate Pain (4-6) Last Admin: 10/12/17 17:31 Dose: 1 tab Aspirin (Ecotrin) 81 mg PO DAILY [facility] Last Admin: 10/13/17 08:29 Dose: 81 mg Carvedilol (Coreg) 6.25 mg PO BID [facility] Dextrose/Water (Dextrose 50%) 25 gm SLOW IVP PRN PRN PRN Reason: Hypoglycemia Famotidine (Pepcid) 20 mg PO BID [facility] Last Admin: 10/13/17 08:29 Dose: 20 mg Fenofibrate (Tricor) 145 mg PO DAILY [facility] Last Admin: 10/13/17 08:29 Dose: 145 mg Gabapentin (Neurontin) 600 mg PO BID [facility] Last Admin: 10/13/17 08:29 Dose: 600 mg Glucagon (Glucagon) 1 mg IM PRN PRN PRN Reason: Hypoglycemia Dextrose/Water (D5w) 1,000 mls @ 0 mls/hr IV .Q0M PRN; As Directed PRN Reason: Hypoglycemia Insulin Detemir 50 units/ (Syringe) 0.5 mls @ 0 mls/hr SC QAM [facility] Last Admin: 10/13/17 09:14 Dose: 0.5 mls Insulin Human Lispro (Humalog) 0 units SC .MODERATE SLIDING SC PRN PRN Reason: Moderate Correctional Scale Last Admin: 10/13/17 12:02 Dose: 6 units Insulin Human Lispro (Humalog) 0 units SC .BEDTIME SLIDING SC PRN PRN Reason: Bedtime Correctional Scale Last Admin: 10/10/17 22:08 Dose: 4 unit Magnesium Hydroxide (Milk Of Magnesium) 30 ml PO DAILYPRN PRN PRN Reason: Constipation Nitroglycerin (Nitrostat) 0.4 mg PO Q5MIN PRN PRN Reason: Chest Pain Ondansetron HCl (Zofran Odt) 4 mg PO Q6H PRN PRN Reason: Nausea/Vomiting Rosuvastatin Calcium (Crestor) 20 mg PO [facility] Last Admin: 10/12/17 20:17 Dose: 20 mg Senna (Senokot) 2 tab PO HSPRN PRN PRN Reason: Constipation Sodium Chloride (Flush - Normal Saline) 10 ml IVF PRN PRN PRN Reason: Saline Flush Last Admin: 10/11/17 21:09 Dose: 10 ml
[2017-10-13] MEDS: Carvedilol 6.25 MG TAB PO SCH (20:58)
[2017-10-13] MEDS: Rosuvastatin 20 MG TAB PO SCH (20:59)
[2017-10-13] MEDS: HYDROcodone/Acetaminophen 5/325 mg Tablet PO PRN (22:21)
--- NOTE | 2017-10-14 00:19 | CON ---
DATE OF CONSULTATION: 10/13/2017 ELECTROPHYSIOLOGY CONSULTATION REPORT REFERRING PHYSICIAN: Dain Devine M.D. I am seeing Mr. Durham at our [facility] telemetry floor as an electrophysiology clinical services consultant. His problems are: 1. Chronic systolic congestive heart failure. A. Prior history of ischemic cardiomyopathy with prior coronary artery disease, angioplasty and bypa ss surgery x3 vessels. B. Prior history of LVEF of 30%-35% which is improved with LVEF of 40%-45% on the most recent echoca rdiogram 12/10/2013, mild MR, mild TR. 2. Status post ICD implantation with a dual chamber ICD in the past, now at elective replacement ind icator. 3. Chronic kidney disease stage 3. 4. Coronary artery risk factors. A. Hypertension. B. Type 2 diabetes. 5. Multisubstance abuse and alcohol use in the past. ALLERGIES: None noted. MEDICATIONS AT HOME: Includes aspirin 81 daily, Coreg 3.125 mg twice a day, fenofibrate 160 mg daily , gabapentin 600 mg twice a day, insulin 100 units in the morning and evening, rosuvastatin 20 mg p.o . daily. SUBJECTIVE: Mr. Durham is here due to low blood sugars and chest discomfort. He came to the ER. Hi s blood sugar was 50, started on D50 drip and hyperglycemia protocol and closely monitored. No signi ficant ST-T changes were on his EKG. His ICD was eventually interrogated and found to have elective replacement indicator. He has a poor followup record. I was consulted for further management of his ICD. Currently, he is feeling well. Denies angina. No PND, orthopnea or lower extremity edema. No fever , chills or cough. REVIEW OF SYSTEMS: The rest of the 12-point system otherwise unremarkable. PAST MEDICAL HISTORY: As above. PAST SURGICAL HISTORY: Significant for pacemaker placement, bypass surgery, left knee surgery, histo ry of appendectomy. SOCIAL HISTORY: The patient has a history of drug abuse in the past, state cocaine, none no more, hi story of smoking and no history of ETOH abuse. FAMILY HISTORY: Significant for coronary artery disease. OBJECTIVE DATA: VITAL SIGNS: Blood pressure is 123/72, heart rate 69, respiratory rate 17, temperature 97.5 degrees Fahrenheit. GENERAL: He is alert and oriented man in no apparent distress. NECK: Supple. Jugular veins are not distended. CHEST: Coarse without crackles. CARDIAC: Heart sounds are regular to rate and rhythm. No murmur or gallop. Left precordial ICD ins ertion site is well healed. ABDOMEN: Benign. Bowel sounds are positive. EXTREMITIES: Lower extremities without edema, clubbing or cyanosis. DATABASE: EKGs reviewed reveals atrially paced rhythm with burns paiute AV conduction narrow QRS. LABORATORY DATA: The white cell count is 8.5, hemoglobin is 13.5, platelet count is 243,000. Sodium 136, potassium 3.7, BUN is 16, creatinine 1.48. ASSESSMENT AND PLAN: Mr. Durham is a pleasant 52-year-old man with prior history of ischemic cardiom yopathy. He has an ICD in place, albeit the battery is now at elective replacement indicator. No re cent ventricular arrhythmias are detected. Lead parameters are adequate. We discussed the pros and cons about the ICD senior engineering team leader change and the chance of infection, lead damage, but willing to proceed. We will schedule him for a near date. Risks and benefits were detai led. Thank you again for allowing me to participate in the care of this patient.
[2017-10-14] MEDS: Famotidine 20 MG TAB PO SCH ×2 (08:09→20:40)
[2017-10-14] MEDS: Gabapentin 300 MG CAP PO SCH ×2 (08:09→20:38)
[2017-10-14] MEDS: INSULIN DETEMIR SC SCH (08:09)
[2017-10-14] MEDS: Aspirin 81 mg Enteric Coated Tablet PO SCH (08:09)
[2017-10-14] MEDS: Carvedilol 6.25 MG TAB PO SCH ×3 (08:09→21:01)
[2017-10-14] MEDS: Fenofibrate Nanocrystallized 145 MG TAB PO SCH (08:09)
[2017-10-14] MEDS ORDERED: Carvedilol 6.25 MG TAB PO SCH (11:00)
--- NOTE | 2017-10-14 15:15 | PDOC.PN ---
- Subjective Encounter Start Date: 10/14/17 Encounter Start Time: 15:10 Subjective: f/u for hypoglycemia improved with adjustment to insulin regimen. Plan -: for ICD generator exchange as device at end of battery life. c/o of wanting -: to eat. Declines heart cath. - Objective Resuscitation Status: Resuscitation Status FULL:Full Resuscitation MAR Reviewed: Yes Vital Signs & Weight: Vital Signs (12 hours) Temp Pulse Resp BP Pulse Ox 10/14/17 12:00 97.6 F 66 18 110/71 99 10/14/17 08:07 97.6 F 64 16 100 10/14/17 08:05 97.6 F 64 16 108/70 100 10/14/17 04:06 97.4 F L 86 15 116/73 99 Weight Admit Weight 169 lb 4.8 oz Weight 164 lb 3.2 oz I&O: 10/13/17 10/14/17 10/15/17 06:59 06:59 06:59 Intake Total 1480 2080 Output Total 3075 3975 Balance -1595 -1895 Result Diagrams: 10/11/17 04:38 10/11/17 04:38 Additional Labs: Accuchecks 10/14/17 10/14/17 10/14/17 11:21 04:08 00:35 POC Glucose 114 H 101 115 H 10/13/17 10/13/17 20:05 16:12 POC Glucose 220 H 176 H Microbiology 10/10/17 06:20 Urine voided Urine Culture - Final NO GROWTH AT 48 HOURS 10/10/17 06:07 Venous blood - Right Hand Blood Culture - Preliminary NO GROWTH AT 48 HOURS 10/10/17 05:59 Venous blood - Left Hand Blood Culture - Preliminary NO GROWTH AT 48 HOURS EKG Reviewed by me: Yes (Tele - SR in 60's) Phys Exam - Physical Examination Constitutional: NAD HEENT: PERRLA, moist MMs, sclera anicteric, oral pharynx no lesions Neck: no nodes, no JVD, supple Respiratory: no wheezing, no rales, no rhonchi, clear to auscultation bilateral Cardiovascular: RRR, no significant murmur, no rub, gallop Gastrointestinal: soft, non-tender, no distention, positive bowel sounds Musculoskeletal: no edema, pulses present Neurological: non-focal, normal sensation, moves all 4 limbs Psychiatric: normal affect, A&O x 3 Skin: no rash, normal turgor, cap refill <2 seconds Dx/Plan (1) Acute metabolic encephalopathy due to hypoglycemia Code(s): G93.41 - METABOLIC ENCEPHALOPATHY; E16.2 - HYPOGLYCEMIA, UNSPECIFIED Status: Resolved Comment: Resolved after correction of hypoglycemia, continue supportive mgmt (2) Pacemaker at end of battery life Code(s): Z45.010 - ENCNTR FOR CHECKING AND TEST OF CARD PACEMAKER PULSE GNRTR Status: Acute Comment: Generatory battery exchange 10/14/17 (3) Chronic kidney disease, stage 3 Status: Chronic Comment: Avoid nephrotoxic meds and limit contrast exposure (4) Diabetes mellitus, type II Status: Chronic Qualifiers: Comment: Pt is on 100units levemir BID, will do only 50 untis Sc today, high risk for hypoglycemia. 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
[2017-10-14] MEDS ORDERED: Midazolam HCl 2 mg/2 ml Vial ONE (15:37)
[2017-10-14] MEDS ORDERED: Fentanyl 100 MCG/2 ML VIAL ONE (15:37)
[2017-10-14] MEDS ORDERED: Lidocaine 1% (PF) 30 ML VIAL ONE ×2 (15:37→15:53)
[2017-10-14] MEDS ORDERED: CEFAZOLIN/Water 2 GM/20 ML SYRINGE ONE (15:37)
--- NOTE | 2017-10-14 17:37 | RAD ---
ONE VIEW CHEST: 10/14/17 HISTORY: Status post cardiac device placement. COMPARISON: 10/10/17. FINDINGS: There is sternotomy wires. Left sided dural lead defibrillator with lead position over the right atri um and right ventricle. Normal cardiac silhouette. The pulmonary vessels and hilum are normal. Costop hrenic angles are clear. No consolidation or mass. No pneumothorax or osseous abnormality. IMPRESSION: 1. No acute cardiopulmonary process. 2. Left sided transvenous defibrillator as above. POS: [facility]
[2017-10-14] MEDS ORDERED: Acetaminophen/Codeine 30-300mg Tablet PO PRN ×2 (18:15)
[2017-10-14] MEDS: Cephalexin 250 MG CAP PO SCH ×2 (18:58→23:59)
[2017-10-14] MEDS: HumaLOG 300 UNITS/3 ML VIAL SC PRN (20:37)
[2017-10-14] MEDS: Rosuvastatin 20 MG TAB PO SCH (20:40)
[2017-10-15] MEDS: Cephalexin 250 MG CAP PO SCH ×2 (05:41→12:43)
[2017-10-15 07:17] VITALS: TEMP 97.3
[2017-10-15] MEDS ORDERED: Carvedilol 6.25 MG TAB PO SCH (08:41)
[2017-10-15] MEDS: Aspirin 81 mg Enteric Coated Tablet PO SCH (09:56)
[2017-10-15] MEDS: Fenofibrate Nanocrystallized 145 MG TAB PO SCH (09:56)
[2017-10-15] MEDS: Famotidine 20 MG TAB PO SCH (09:56)
[2017-10-15] MEDS: Gabapentin 300 MG CAP PO SCH (09:56)
[2017-10-15] MEDS: HumaLOG 300 UNITS/3 ML VIAL SC PRN ×2 (09:57→12:44)
[2017-10-15] MEDS: INSULIN DETEMIR SC SCH (09:57)
[2017-10-15 10:02] VITALS: BP 101/64
--- NOTE | 2017-10-15 11:52 | PDOC.PN ---
- Subjective Encounter Start Date: 10/15/17 Encounter Start Time: 08:40 Subjective: no chest pain or sob, is amb and eating well - Objective Resuscitation Status: Resuscitation Status FULL:Full Resuscitation MAR Reviewed: Yes Vital Signs & Weight: Vital Signs (12 hours) Temp Pulse Resp BP BP BP Pulse Ox 10/15/17 09:58 101/64 10/15/17 08:00 97.3 F L 82 16 98 10/15/17 07:14 97.3 F L 82 16 92/61 98 10/15/17 04:00 97.8 F 71 18 91/53 L 96 Weight Admit Weight 169 lb 4.8 oz Weight 164 lb 3.2 oz I&O: 10/14/17 10/15/17 10/16/17 06:59 06:59 06:59 Intake Total 2080 360 Output Total 3975 1000 Balance -1895 -640 Result Diagrams: 10/11/17 04:38 10/11/17 04:38 Additional Labs: Accuchecks 10/15/17 10/15/17 10/14/17 04:30 00:27 20:34 POC Glucose 161 H 232 H 406 H 10/14/17 10/14/17 10/14/17 17:12 11:21 09:36 POC Glucose 86 114 H 98 Phys Exam - Physical Examination HEENT: PERRLA, moist MMs Neck: no JVD, supple Respiratory: no wheezing, no rales Cardiovascular: RRR, no significant murmur Gastrointestinal: soft, non-tender, positive bowel sounds Musculoskeletal: no edema, pulses present Neurological: non-focal, moves all 4 limbs Psychiatric: normal affect, A&O x 3 Dx/Plan (1) Pacemaker at end of battery life Code(s): Z45.010 - ENCNTR FOR CHECKING AND TEST OF CARD PACEMAKER PULSE GNRTR Status: Acute Comment: s/p Generatory battery exchange 10/14/17 (2) CHF (congestive heart failure) Code(s): I50.9 - HEART FAILURE, UNSPECIFIED Status: Chronic Qualifiers: Qualified Code(s): I50.22 - Chronic systolic (congestive) heart failure Comment: ef 45% (3) CKD (chronic kidney disease) Code(s): N18.9 - CHRONIC KIDNEY DISEASE, UNSPECIFIED Status: Chronic Qualifiers: Chronic kidney disease stage: stage 3 (moderate) Qualified Code(s): N18.3 - Chronic kidney disease, stage 3 (moderate) (4) Diabetes mellitus Code(s): E11.9 - TYPE 2 DIABETES MELLITUS WITHOUT COMPLICATIONS Status: Chronic Qualifiers: Diabetes mellitus type: type 2 Diabetes mellitus nursing home insulin use: with oil heaterman use Diabetes mellitus complication status: with kidney complications Diabetes mellitus complication detail: with chronic kidney disease Chronic kidney disease stage: stage 3 (moderate) Qualified Code(s): E11.22 - Type 2 diabetes mellitus with diabetic chronic kidney disease; N18.3 - Chronic kidney disease, stage 3 (moderate); N18.3 - Chronic kidney disease, stage 3 (moderate); Z79.4 - care home (current) use of insulin; Z79.4 - care home (current) use of insulin; Z79.4 - care home (current) use of insulin; Z79.4 - intermediate project manager (current) use of insulin (5) GERD (gastroesophageal reflux disease) Code(s): K21.9 - GASTRO-ESOPHAGEAL REFLUX DISEASE WITHOUT ESOPHAGITIS Status: Chronic Qualifiers: Esophagitis presence: esophagitis presence not specified Qualified Code(s) : K21.9 - Gastro-esophageal reflux disease without esophagitis (6) Hx of CABG Status: Chronic (7) Hyperlipidemia Code(s): E78.5 - HYPERLIPIDEMIA, UNSPECIFIED Status: Chronic Qualifiers: Hyperlipidemia type: unspecified Qualified Code(s): E78.5 - Hyperlipidemia , unspecified Comment: Continue on Statins (8) Coronary artery disease Code(s): I25.10 - ATHSCL HEART DISEASE OF [place] CORONARY ARTERY W/O ANG PCTRS Status: Chronic Qualifiers: Coronary Disease-Associated Artery/Lesion type: bypass graft [place] vs. transplanted heart: [place] heart Associated angina: without angina Qualified Code(s): I25.810 - Atherosclerosis of coronary artery bypass graft(s) without angina pectoris Comment: Continue on Aspirin and BB. (9) Hypertension Code(s): I10 - ESSENTIAL (PRIMARY) HYPERTENSION Status: Chronic Qualifiers: Hypertension type: essential hypertension - Plan no caroline/arb's due to ckd -: hemostable -: has been cleared for dc by specialists -: dc pt home, counselled reg compliance with meds * .
--- NOTE | 2017-10-15 22:52 | DIS ---
DATE OF ADMISSION: 10/10/2017 DATE OF DISCHARGE: 10/15/2017 DISCHARGE DISPOSITION: To home. PRIMARY DISCHARGE DIAGNOSES: The patient is status post generator battery exchange done on 8; acute congestive heart failure exacerbation with ejection fraction of 45%, resolving; chronic kidn ey disease, stage 3; diabetes mellitus type 2; gastroesophageal reflux disease; prior history of maris nary artery bypass grafting; and hypertension. PROCEDURES DONE DURING HOSPITALIZATION: The patient has had generator change for the AICD done on by Dr. Fierro. Nuclear stress test done on 10/11/2017 showed no reversible ischemia. There w as a fixed inferolateral wall defect with hypokinesis. Blood cultures x2, no growth. Urine culture, no growth. Hemoglobin and hematocrit 13 and 40, and platelet count 243. BUN and creatinine on 09/22 is 16 and 1.4. Total cholesterol 136, triglycerides 150, LDL 75, HDL 31, TSH 0.67, albumin 4. 4. Urine tox screen was negative. INPATIENT CONSULTS: Dr. Arita for Cardiology. DISCHARGE PLAN: The patient to follow up with primary care physician in 1 week. He also needs follo w up with Dr. Arita as advised. DISCHARGE MEDICATIONS: Aspirin 81 mg p.o. daily, Coreg 6.25 mg p.o. twice daily, Keflex 500 mg p.o. q.6 hourly for a total of 6 capsules that is for the generator change procedure for the AICD, TriCor 160 mg p.o. daily, gabapentin 600 mg p.o. twice daily, Levemir 50 units subcutaneously q.a.m., Cresto r 20 mg p.o. at bedtime. Please note, no YAJAIRA or ARBs were given due to his chronic kidney disease, s tage 3. BRIEF COURSE DURING HOSPITALIZATION: The patient initially got admitted on the with complaints of shortness of breath and chest pain. The patient was placed on telemetry. He has had ACS evidence based protocol followed. The patient has had a nuclear stress test done, which showed no reversible ischemia and had findings of old ID. He was evaluated by Dr. Devine initially and Dr. Arita late r. The patient's AICD needed a generator change and this was done on the by Dr. Reji Fierro. T he patient has remained hemodynamically stable and has been cleared by Cardiology for discharge. He is ambulating and eating well prior to discharge. The patient was counseled with regards to medicati on compliance and dietary compliance and followups with specialists. Please see a face to face docum entation on [facility] for the day of discharge.
== END 2017-10-15 12:53 | disposition home or self-care (01) | DRG 245 ==
LOC: ERS 05:06 → 2NO 06:23
PROVIDERS: ADMIT Internal Medicine; ATTEND Internal Medicine
PROC: 0JH608Z Insertion of Defibrillator Generator into Chest Subcutaneous Tissue and Fascia, Open Approach (ICD-10-PCS; principal; 2017-10-14)
PROC: 0JPT0PZ Removal of Cardiac Rhythm Related Device from Trunk Subcutaneous Tissue and Fascia, Open Approach (ICD-10-PCS; 2017-10-14)
DX: I25.119 Atherosclerotic heart disease of native coronary artery with unspecified angina pectoris (principal); G93.41 Metabolic encephalopathy; I50.23 Acute on chronic systolic (congestive) heart failure; I13.0 Hypertensive heart and chronic kidney disease with heart failure and stage 1 through stage 4 chronic kidney disease, or unspecified chronic kidney disease; N17.9 Acute kidney failure, unspecified; Z45.010 Encounter for checking and testing of cardiac pacemaker pulse generator [battery]; N18.3 Chronic kidney disease, stage 3 (moderate); E11.649 Type 2 diabetes mellitus with hypoglycemia without coma; Z95.1 Presence of aortocoronary bypass graft; F32.9 Major depressive disorder, single episode, unspecified; I25.2 Old myocardial infarction; Z79.82 Long term (current) use of aspirin; Z79.4 Long term (current) use of insulin; Z79.899 Other long term (current) drug therapy; F41.9 Anxiety disorder, unspecified; E78.5 Hyperlipidemia, unspecified
CPT/HCPCS: 33263; 36415; 36416; 71045; 78452; 80048; 80053; 80061; 80306; 81003; 81015; 82550; 82553; 83605; 83690; 84443; 84484; 85025; 87040; 87086; 90471; 90732; 93005; 93017; 94760; 96361; 96374; 99152; A9500; C1721; G0009; J0153; J1650; J1815; J2001; J2250; J3010; J3490

== ENCOUNTER 2017-10-16 17:44 | Emergency (ER) | payer MEDICARE, MEDICAID ==
[2017-10-16 18:27] LABS: #Basophils 0.1 thou/uL (0.0-0.2); #Eosinphils 0.2 thou/uL (0.0-0.7); #Lymphocytes 2.4 thou/uL (1.20-3.40); #Monocytes 0.3 thou/uL (0.11-0.59); #Neutrophils 5.7 thou/uL (1.40-6.50); %Basophils 0.9 % (0.0-1.0); %Eosinophils 2.5 % (0.0-10.0); %Lymphocytes 27.6 % (21.0-51.0); %Monocytes 3.9 % (0.0-10.0); %Neutrophils 65.1 % (42.0-75.0); Hemoglobin 13.6 g/dL (14.0-18.0); Mean Corpuscular Hemoglobin 27.1 pg (27.0-31.0); Mean Corpuscular Volume 79.8 fl (80.0-94.0); Mean Platelet Volume 7.4 fL (7.4-10.4); Platelet Count 298 thou/uL (130-400); Red Blood Cell (RBC) Count 5.03 mill/uL (4.70-6.10); White Blood Cell (WBC) Count 8.7 thou/uL (4.8-10.8)
--- NOTE | 2017-10-16 18:33 | RAD ---
CHEST TWO VIEWS: 10/16/17 HISTORY: Chest pain. COMPARISON: 10/14/17. FINDINGS: Left sided transvenous defibrillator with lead position over the right atrium and right ventricle. No rmal cardiac silhouette. Pulmonary vessels and hilum are normal. The right costophrenic angle is excl uded from this exam. The left costophrenic angle is clear. No consolidation or mass. No pneumothorax or osseous abnormality. Sternotomy wires are noted. IMPRESSION: No acute cardiopulmonary process. POS: [facility]
[2017-10-16 18:52] LABS: ALT (SGPT) 15 U/L (8-55); AST (SGOT) 21 U/L (5-34); Albumin 3.9 g/dL (3.5-5.0); Alkaline Phosphatase 46 U/L (40-150); Anion Gap 16 mmol/L (10-20); BUN (Urea Nitrogen) 43 mg/dL (8.4-25.7); Bilirubin, Total 0.3 mg/dL (0.2-1.2); CK (CPK) 163 U/L (30-200); Calc. Creatinine Clearance 0 mL/min (70-130); Calcium 9.7 mg/dL (7.8-10.44); Carbon Dioxide 18 mmol/L (22-29); Chloride 103 mmol/L (98-107); Estimated GFR-MDRD 22; Globulin 3.4 g/dL (2.4-3.5); Glucose 119 mg/dL (70-105); Lipase 41 U/L (8-78); Protein, Total 7.3 g/dL (6.0-8.3); Sodium 133 mmol/L (136-145)
[2017-10-16 18:56] LABS: CKMB 2.5 ng/mL (0-6.6); Troponin I Less than 0.010 ng/mL (< 0.028)
== END 2017-10-16 20:42 | disposition home or self-care (01) ==
LOC: ERS 17:44
DX: N28.9 Disorder of kidney and ureter, unspecified (principal); E11.9 Type 2 diabetes mellitus without complications; I25.2 Old myocardial infarction; I10 Essential (primary) hypertension; J44.9 Chronic obstructive pulmonary disease, unspecified; E78.00 Pure hypercholesterolemia, unspecified
CPT/HCPCS: 36415; 71046; 80053; 82553; 83690; 84484; 85025; 93005

== ENCOUNTER 2017-11-03 10:50 | Emergency (ER) | payer MEDICARE, MEDICAID | END 2017-11-03 11:43 | disposition left against medical advice (07) | LOC: ERS 10:50 | DX: Z53.21 Procedure and treatment not carried out due to patient leaving prior to being seen by health care provider (principal) ==

== ENCOUNTER 2018-02-15 17:19 | Emergency (ER) | payer MEDICARE, MEDICAID ==
[2018-02-15] MEDS ORDERED: Lidocaine 2% Jelly 5 ML TUBE ONE (18:19)
== END 2018-02-15 18:47 | disposition home or self-care (01) ==
LOC: ERS 17:19
DX: K59.00 Constipation, unspecified (principal); K60.2 Anal fissure, unspecified; E11.9 Type 2 diabetes mellitus without complications; J44.9 Chronic obstructive pulmonary disease, unspecified; I10 Essential (primary) hypertension; E78.00 Pure hypercholesterolemia, unspecified; I25.2 Old myocardial infarction
CPT/HCPCS: 99284

== ENCOUNTER 2018-02-18 15:58 | Emergency (ER) | payer MEDICARE, MEDICAID ==
[2018-02-18 17:06] LABS: #Basophils 0.1 thou/uL (0.0-0.2); #Eosinphils 0.5 thou/uL (0.0-0.7); #Lymphocytes 2.2 thou/uL (1.20-3.40); #Monocytes 0.3 thou/uL (0.11-0.59); #Neutrophils 4.2 thou/uL (1.40-6.50); %Eosinophils 6.6 % (0.0-10.0); %Lymphocytes 29.8 % (21.0-51.0); %Monocytes 4.6 % (0.0-10.0); %Neutrophils 58.1 % (42.0-75.0); Hemoglobin 14.9 g/dL (14.0-18.0); Mean Corpuscular HGB CONC 35.6 g/dL (32.0-36.0); Mean Corpuscular Volume 78.7 fL (78.0-98.0); Mean Platelet Volume 8.1 fL (7.4-10.4); Platelet Count 230 thou/uL (130-400); RBC Distribution Width 13.2 % (11.5-14.5); Red Blood Cell (RBC) Count 5.31 mill/uL (4.70-6.10); White Blood Cell (WBC) Count 7.3 thou/uL (4.8-10.8)
[2018-02-18 17:22] LABS: Bilirubin Negative (Negative); Blood, Urine Small (Negative); Clarity CLOUDY (Clear); Glucose, Urine (Dipstick) >=1000 mg/dL (Negative); Leukocyte Small (Negative); Nitrite Positive (Negative); Protein, Urine (Dipstick) 100 mg/dL (Neg-Trace); Specific Gravity, Urine 1.029 (1.002-1.036); Urobilinogen 0.2 mg/dL (0.2-1.0); pH, Urine 5.5 (5.0-9.0)
[2018-02-18 17:25] LABS: Bacteria/HPF 4+ HPF (None Seen); Hyaline Casts/LPF 0-3 HYALINE CAST LPF (0-3 Hyaline); RBC/HPF 0-3 HPF (0-3); Squamous Epithelial 0-3 HPF (0-3)
[2018-02-18 17:26] LABS: Yeast-AUWi Flag 48.2 (0-25.0)
[2018-02-18 17:28] LABS: ALT (SGPT) 26 U/L (8-55); AST (SGOT) 19 U/L (5-34); Alkaline Phosphatase 71 U/L (40-150); Anion Gap 12 mmol/L (10-20); BUN (Urea Nitrogen) 23 mg/dL (8.4-25.7); Bilirubin, Total 0.4 mg/dL (0.2-1.2); Calc. Creatinine Clearance 0 mL/min (70-130); Calcium 9.5 mg/dL (7.8-10.44); Carbon Dioxide 24 mmol/L (22-29); Chloride 98 mmol/L (98-107); Estimated GFR-MDRD 38; Globulin 3.8 g/dL (2.4-3.5); Glucose 535 mg/dL (70-105); Potassium 4.2 mmol/L (3.5-5.1); Protein, Total 7.8 g/dL (6.0-8.3); Sodium 130 mmol/L (136-145)
[2018-02-18 17:41] LABS: Yeast-All Forms None Seen HPF (None Seen)
[2018-02-18] MEDS ORDERED: cefTRIAXone\\ROCEPHIN 1 GM VIAL ONE (19:20)
--- NOTE | 2018-02-19 13:45 | EKG ---
Test Reason : Blood Pressure : / mmHG Vent. Rate : 080 BPM Atrial Rate : 080 BPM P-R Int : 188 ms QRS Dur : 098 ms QT Int : 352 ms P-R-T Axes : 015 -14 012 degrees QTc Int : 405 ms Normal sinus rhythm Minimal voltage criteria for LVH, may be normal variant Inferior infarct , age undetermined Anterior infarct , age undetermined Abnormal ECG Confirmed by JAZMÍN BROWN ([id number]), assistant film editor JAXON JONES ([id number]) on 02/19/2018 1:44:57 PM Referred By: Confirmed By:JAZMÍN BROWN
== END 2018-02-18 21:04 | disposition home or self-care (01) ==
LOC: ERS 15:58
DX: E11.65 Type 2 diabetes mellitus with hyperglycemia (principal); N39.0 Urinary tract infection, site not specified; J44.9 Chronic obstructive pulmonary disease, unspecified; I25.2 Old myocardial infarction; I10 Essential (primary) hypertension; Z79.899 Other long term (current) drug therapy; Z79.84 Long term (current) use of oral hypoglycemic drugs; Z79.82 Long term (current) use of aspirin
CPT/HCPCS: 36415; 36416; 80053; 81003; 81015; 85025; 87077; 87086; 87186; 93005; 96361; 96365; J0696

== ENCOUNTER 2018-03-07 16:47 | Emergency (ER) | payer MEDICARE, MEDICAID ==
[2018-03-07] MEDS ORDERED: Dexamethasone 10 MG/ML VIAL ONE (17:10)
== END 2018-03-07 17:45 | disposition home or self-care (01) ==
LOC: ERS 16:47
DX: T63.441A Toxic effect of venom of bees, accidental (unintentional), initial encounter (principal); E11.9 Type 2 diabetes mellitus without complications; J44.9 Chronic obstructive pulmonary disease, unspecified; I25.2 Old myocardial infarction; I10 Essential (primary) hypertension
CPT/HCPCS: 96372; J1100

== ENCOUNTER 2018-03-09 18:54 | Emergency (ER) | payer MEDICARE, MEDICAID ==
[~2018-03-09 18:54] MED LIST: ISOVUE-370 76%-LOCM 1 ML ONE
[2018-03-09 19:40] LABS: #Basophils 0.1 thou/uL (0.0-0.2); #Eosinphils 0.2 thou/uL (0.0-0.7); #Monocytes 0.3 thou/uL (0.11-0.59); #Neutrophils 3.7 thou/uL (1.40-6.50); %Basophils 1.1 % (0.0-1.0); %Eosinophils 3.2 % (0.0-10.0); %Lymphocytes 31.8 % (21.0-51.0); %Monocytes 4.5 % (0.0-10.0); %Neutrophils 59.4 % (42.0-75.0); Hemoglobin 13.9 g/dL (14.0-18.0); Mean Corpuscular Hemoglobin 28.4 pg (27.0-31.0); Mean Corpuscular Volume 81.1 fL (78.0-98.0); Mean Platelet Volume 8.6 fL (7.4-10.4); Platelet Count 280 thou/uL (130-400); RBC Distribution Width 12.5 % (11.5-14.5); Red Blood Cell (RBC) Count 4.92 mill/uL (4.70-6.10); White Blood Cell (WBC) Count 6.2 thou/uL (4.8-10.8)
[2018-03-09 19:50] LABS: ALT (SGPT) 25 U/L (8-55); AST (SGOT) 25 U/L (5-34); Albumin 3.7 g/dL (3.5-5.0); Alkaline Phosphatase 48 U/L (40-150); Anion Gap 14 mmol/L (10-20); BUN (Urea Nitrogen) 27 mg/dL (8.4-25.7); Bilirubin, Total 0.3 mg/dL (0.2-1.2); Calc. Creatinine Clearance 0 mL/min (70-130); Calcium 8.9 mg/dL (7.8-10.44); Carbon Dioxide 21 mmol/L (22-29); Chloride 100 mmol/L (98-107); Estimated GFR-MDRD 35; Globulin 3.2 g/dL (2.4-3.5); Glucose 509 mg/dL (70-105); Lipase 36 U/L (8-78); Potassium 3.9 mmol/L (3.5-5.1); Protein, Total 6.9 g/dL (6.0-8.3); Sodium 131 mmol/L (136-145)
[2018-03-09 19:53] LABS: Bilirubin Negative (Negative); Blood, Urine Small (Negative); Clarity CLEAR (Clear); Glucose, Urine (Dipstick) >=1000 mg/dL (Negative); Leukocyte Negative (Negative); Nitrite Positive (Negative); Protein, Urine (Dipstick) 100 mg/dL (Neg-Trace); Specific Gravity, Urine 1.027 (1.002-1.036)
[2018-03-09 19:57] LABS: Bacteria/HPF 4+ HPF (None Seen); Hyaline Casts/LPF 0-3 HYALINE CAST LPF (0-3 Hyaline); RBC/HPF 0-3 HPF (0-3); Squamous Epithelial None Seen HPF (0-3); WBC/HPF 21-50 HPF (0-3)
--- NOTE | 2018-03-09 21:19 | CT ---
CT ABDOMEN AND PELVIS WITH CONTRAST: HISTORY: Abdominal pain. COMPARISON: 09/02/2014 FINDINGS: Contrast enhanced CT images of the abdomen and pelvis demonstrate the lung bases to be unremarkable. No evidence of free intraperitoneal air is seen. The liver, spleen, gallbladder, pancreas, adrenal glands, and kidneys are unremarkable. No dilated l oops of small bowel seen. The urinary bladder is mildly distended. The kidneys demonstrate no significant evidence of pathology. The small bowel is unremarkable. The colon contains a moderate amount of stool without evidence of s ignificant distention or lesion seen. POS: [facility]
== END 2018-03-09 22:55 | disposition home or self-care (01) ==
LOC: ERS 18:54
DX: N39.0 Urinary tract infection, site not specified (principal); K64.8 Other hemorrhoids; E11.9 Type 2 diabetes mellitus without complications; I11.0 Hypertensive heart disease with heart failure; I50.9 Heart failure, unspecified; J44.9 Chronic obstructive pulmonary disease, unspecified; Z79.84 Long term (current) use of oral hypoglycemic drugs; Z79.82 Long term (current) use of aspirin
CPT/HCPCS: 74177; 80053; 81003; 81015; 82274; 83605; 83690; 85025; 93005; 96361; 96374; J2270

== ENCOUNTER 2018-08-15 09:19 | Emergency (ER) | payer MEDICARE, MEDICAID ==
[2018-08-15] MEDS ORDERED: Adacel (T-DAP) 0.5 ML SYRINGE ONE (09:46)
[2018-08-15] MEDS ORDERED: Bacitracin Zinc 1 Packet ONE (09:47)
== END 2018-08-15 10:05 | disposition home or self-care (01) ==
LOC: ERS 09:19
DX: S60.467A Insect bite (nonvenomous) of left little finger, initial encounter (principal); R23.8 Other skin changes; I11.0 Hypertensive heart disease with heart failure; I50.9 Heart failure, unspecified; J44.9 Chronic obstructive pulmonary disease, unspecified; E78.00 Pure hypercholesterolemia, unspecified; I25.2 Old myocardial infarction; Z79.899 Other long term (current) drug therapy; Z79.82 Long term (current) use of aspirin; W57.XXXA Bitten or stung by nonvenomous insect and other nonvenomous arthropods, initial encounter
CPT/HCPCS: 10060; 90471; 90715

== ENCOUNTER 2018-09-07 11:51 | Emergency (ER) | payer MEDICARE, OTHER | END 2018-09-07 12:39 | disposition home or self-care (01) | LOC: ERS 11:51 | DX: L03.116 Cellulitis of left lower limb (principal); I11.0 Hypertensive heart disease with heart failure; I50.9 Heart failure, unspecified; J44.9 Chronic obstructive pulmonary disease, unspecified; E11.9 Type 2 diabetes mellitus without complications; I25.2 Old myocardial infarction; Z79.82 Long term (current) use of aspirin; Z79.891 Long term (current) use of opiate analgesic; Z79.899 Other long term (current) drug therapy | CPT/HCPCS: 99283 ==

== ENCOUNTER 2018-09-11 09:16 | Emergency (ER) | payer MEDICARE, OTHER ==
[2018-09-11 09:41] LABS: Actual Bicarbonate (HCO3a) 17.1 mEq/L (22-28); Analyzer IN Cardio ER; Base Excess (BEa) -1.3 mEq/L (-2.0 to +3.0); Calcium, Ionized 1.18 mmol/L (1.12-1.30); Carboxyhemoglobin (COHb) 1.1 gm% (0.0-3.0); Hemoglobin (Hb) 14.2 g/dL (14.0-18.0); O2 Tension (PaO2) 112.5 mmHg (80.0-100.0); Potassium - ABG Lab 4.76 mmol/L (3.70-5.30)
[2018-09-11 09:42] LABS: pH, Arterial 7.62 (7.35-7.45)
[2018-09-11 09:43] LABS: CO2 Tension 17.2 mmHg (35.0-45.0); Puncture Site RB
[2018-09-11 09:57] LABS: #Basophils 0.1 thou/uL (0.0-0.2); #Eosinphils 0.1 thou/uL (0.0-0.7); #Lymphocytes 2.1 thou/uL (1.20-3.40); #Monocytes 0.5 thou/uL (0.11-0.59); #Neutrophils 6.3 thou/uL (1.40-6.50); %Basophils 0.8 % (0.0-1.0); %Eosinophils 1.5 % (0.0-10.0); %Lymphocytes 22.9 % (21.0-51.0); %Monocytes 5.7 % (0.0-10.0); %Neutrophils 69.1 % (42.0-75.0); Hemoglobin 14.2 g/dL (14.0-18.0); Mean Corpuscular HGB CONC 33.2 g/dL (32.0-36.0); Mean Corpuscular Hemoglobin 26.7 pg (27.0-31.0); Mean Corpuscular Volume 80.4 fL (78.0-98.0); Mean Platelet Volume 8.1 fL (7.4-10.4); Platelet Count 355 thou/uL (130-400); RBC Distribution Width 11.9 % (11.5-14.5); White Blood Cell (WBC) Count 9.2 thou/uL (4.8-10.8)
[2018-09-11 10:28] LABS: ALT (SGPT) 10 U/L (8-55); AST (SGOT) 11 U/L (5-34); Albumin 3.7 g/dL (3.5-5.0); Alkaline Phosphatase 51 U/L (40-150); Anion Gap 14 mmol/L (10-20); BUN (Urea Nitrogen) 29 mg/dL (8.4-25.7); Bilirubin, Total 0.5 mg/dL (0.2-1.2); Calc. Creatinine Clearance 0 mL/min (70-130); Carbon Dioxide 24 mmol/L (22-29); Chloride 97 mmol/L (98-107); Estimated GFR-MDRD 27; Globulin 4.2 g/dL (2.4-3.5); Glucose 440 mg/dL (70-105); Protein, Total 7.9 g/dL (6.0-8.3); Sodium 130 mmol/L (136-145)
[2018-09-11 10:29] LABS: Phosphorus 2.4 mg/dL (2.3-4.7)
--- NOTE | 2018-09-11 11:00 | RAD ---
SINGLE VIEW OF THE CHEST: COMPARISON: 10/14/2017. HISTORY: Weight loss and weakness for 2-3 days. FINDINGS: A single view of the chest shows a normal-size cardiomediastinal silhouette. The pacemaker is unchan ged in position. The patient is status post sternotomy. There is no evidence of consolidation, mass , or pleural effusion. IMPRESSION: No evidence of acute cardiopulmonary disease. POS: [facility]
[2018-09-11 14:16] LABS: Bilirubin Negative (Negative); Blood, Urine Small (Negative); Clarity CLEAR (Clear); Glucose, Urine (Dipstick) >=1000 mg/dL (Negative); Leukocyte Negative (Negative); Nitrite Negative (Negative); Protein, Urine (Dipstick) 300 mg/dL (Neg-Trace); Specific Gravity, Urine 1.029 (1.002-1.036); Urobilinogen 0.2 mg/dL (0.2-1.0)
[2018-09-11 14:20] LABS: Bacteria/HPF Rare-Few HPF (None Seen); Hyaline Casts/LPF 0-3 HYALINE CAST LPF (0-3 Hyaline); RBC/HPF 0-3 HPF (0-3)
== END 2018-09-11 15:38 | disposition home or self-care (01) ==
LOC: ERS 09:16
DX: E11.65 Type 2 diabetes mellitus with hyperglycemia (principal); I11.0 Hypertensive heart disease with heart failure; I50.9 Heart failure, unspecified; E78.00 Pure hypercholesterolemia, unspecified; I25.2 Old myocardial infarction; J44.9 Chronic obstructive pulmonary disease, unspecified; Z79.899 Other long term (current) drug therapy; Z79.4 Long term (current) use of insulin
CPT/HCPCS: 36415; 36416; 71045; 80053; 81003; 81015; 82010; 82805; 83735; 83880; 84100; 84484; 85025; 93005; 96360; 96361

== ENCOUNTER 2018-09-19 12:02 | Emergency (ER) | payer MEDICARE, OTHER ==
[2018-09-19 12:30] LABS: #Eosinphils 0.2 thou/uL (0.0-0.7); #Lymphocytes 1.8 thou/uL (1.20-3.40); #Monocytes 0.4 thou/uL (0.11-0.59); #Neutrophils 5.8 thou/uL (1.40-6.50); %Basophils 0.6 % (0.0-1.0); %Eosinophils 1.9 % (0.0-10.0); %Lymphocytes 21.6 % (21.0-51.0); %Monocytes 4.8 % (0.0-10.0); %Neutrophils 71.2 % (42.0-75.0); Mean Corpuscular Hemoglobin 26.4 pg (27.0-31.0); Mean Corpuscular Volume 80.1 fL (78.0-98.0); Mean Platelet Volume 7.7 fL (7.4-10.4); Platelet Count 435 thou/uL (130-400); RBC Distribution Width 11.9 % (11.5-14.5); Red Blood Cell (RBC) Count 4.53 mill/uL (4.70-6.10); White Blood Cell (WBC) Count 8.2 thou/uL (4.8-10.8)
[2018-09-19 12:40] LABS: Bilirubin Negative (Negative); Blood, Urine Negative (Negative); Clarity CLEAR (Clear); Glucose, Urine (Dipstick) 500 mg/dL (Negative); Leukocyte Negative (Negative); Nitrite Negative (Negative); Protein, Urine (Dipstick) 100 mg/dL (Neg-Trace); Specific Gravity, Urine 1.017 (1.002-1.036); pH, Urine 7.5 (5.0-9.0)
[2018-09-19 12:43] LABS: Bacteria/HPF None Seen HPF (None Seen); Hyaline Casts/LPF 0-3 HYALINE CAST LPF (0-3 Hyaline); Pathc Cast-AUWi Flag 0.13 (0-2.49); RBC/HPF 0-3 HPF (0-3); WBC/HPF 0-3 HPF (0-3)
[2018-09-19 12:46] LABS: ALT (SGPT) 15 U/L (8-55); AST (SGOT) 19 U/L (5-34); Albumin 3.2 g/dL (3.5-5.0); Alkaline Phosphatase 36 U/L (40-150); Anion Gap 12 mmol/L (10-20); BUN (Urea Nitrogen) 29 mg/dL (8.4-25.7); Bilirubin, Total 0.4 mg/dL (0.2-1.2); Calc. Creatinine Clearance 0 mL/min (70-130); Calcium 8.9 mg/dL (7.8-10.44); Carbon Dioxide 23 mmol/L (22-29); Chloride 105 mmol/L (98-107); Estimated GFR-MDRD 36; Globulin 3.6 g/dL (2.4-3.5); Glucose 304 mg/dL (70-105); Potassium 4.2 mmol/L (3.5-5.1); Protein, Total 6.8 g/dL (6.0-8.3); Sodium 136 mmol/L (136-145)
--- NOTE | 2018-09-19 13:10 | RAD ---
PORTABLE CHEST: Date: 09/19/18 HISTORY: Cough. COMPARISON: 09/11/18. FINDINGS: Heart size within normal limits. Internal defibrillator device is present. Lungs are clear of infiltr ative process. IMPRESSION: No active intrathoracic disease. POS: [facility]
--- NOTE | 2018-09-19 14:24 | CT ---
CT OF BRAIN PERFORMED WITHOUT CONTRAST ENHANCEMENT: Date: 09/19/18 HISTORY: Syncope. Blurred vision. COMPARISON: 04/20/17. FINDINGS: The ventricular and cisternal system is within normal limits. There are no signs of intracerebral hem orrhage or extra-axial fluid collections. The mastoid air cells and visualized sinuses are clear. IMPRESSION: No acute intracranial abnormalities. POS: [facility]
[2018-09-19 15:30] LABS: Troponin I Less than 0.010 ng/mL (< 0.028)
== END 2018-09-19 15:35 | disposition home or self-care (01) ==
LOC: ERS 12:02
DX: R53.1 Weakness (principal); E11.9 Type 2 diabetes mellitus without complications; I11.0 Hypertensive heart disease with heart failure; I50.9 Heart failure, unspecified; E78.00 Pure hypercholesterolemia, unspecified; I25.2 Old myocardial infarction
CPT/HCPCS: 36415; 36416; 70450; 71045; 80053; 81003; 81015; 83880; 84484; 85025; 87804; 93005; 96360; 96361

== ENCOUNTER 2018-10-06 10:59 | Emergency (ER) | payer MEDICARE, MEDICAID ==
[2018-10-06] MEDS ORDERED: Adacel (T-DAP) 0.5 ML SYRINGE ONE (12:31)
[2018-10-06] MEDS ORDERED: Bacitracin Zinc 1 Packet ONE (12:31)
--- NOTE | 2018-10-06 12:36 | RAD ---
LEFT FOOT THREE VIEWS: 10/06/18 HISTORY: Patient had a toothpick in the plantar portion of the foot two days ago. Redness to the site. There are vascular calcifications present. The bones do not appear demineralized. I do not appreciate any plain film evidence for osteomyelitis. No fractures. No definite radiopaque foreign bodies. IMPRESSION: No acute changes. POS: [facility]
== END 2018-10-06 12:51 | disposition home or self-care (01) ==
LOC: ERS 10:59
DX: S91.332A Puncture wound without foreign body, left foot, initial encounter (principal); E11.9 Type 2 diabetes mellitus without complications; J44.9 Chronic obstructive pulmonary disease, unspecified; I25.2 Old myocardial infarction; E78.00 Pure hypercholesterolemia, unspecified; I11.0 Hypertensive heart disease with heart failure; I50.9 Heart failure, unspecified; W26.8XXA Contact with other sharp object(s), not elsewhere classified, initial encounter
CPT/HCPCS: 90471; 90715

== ENCOUNTER 2018-11-27 15:04 | Observation (INO) | payer MEDICARE, MEDICAID ==
[2018-11-27] MEDS ORDERED: Aspirin Chewable 81 MG TAB ONE (15:26)
[2018-11-27 15:42] LABS: #Eosinphils 0.5 thou/uL (0.0-0.7); #Lymphocytes 1.9 thou/uL (1.20-3.40); #Monocytes 0.4 thou/uL (0.11-0.59); %Basophils 0.2 % (0.0-1.0); %Eosinophils 7.4 % (0.0-10.0); %Lymphocytes 27.9 % (21.0-51.0); %Monocytes 5.5 % (0.0-10.0); %Neutrophils 58.9 % (42.0-75.0); Hemoglobin 11.6 g/dL (14.0-18.0); Mean Corpuscular HGB CONC 33.7 g/dL (32.0-36.0); Mean Corpuscular Hemoglobin 26.7 pg (27.0-31.0); Mean Corpuscular Volume 79.2 fL (78.0-98.0); Mean Platelet Volume 7.6 fL (7.4-10.4); Platelet Count 271 thou/uL (130-400); RBC Distribution Width 15.3 % (11.5-14.5); Red Blood Cell (RBC) Count 4.36 mill/uL (4.70-6.10); White Blood Cell (WBC) Count 6.7 thou/uL (4.8-10.8)
--- NOTE | 2018-11-27 15:55 | RAD ---
SINGLE VIEW OF THE CHEST: 11/27/18 COMPARISON: 09/19/18 HISTORY: Chest pain. FINDINGS: Single view of the chest shows a normal sized cardiomediastinal silhouette. The pacemaker is unchange d in position. The patient is status post sternotomy. There is no evidence of consolidation, mass, or pleural effusion. IMPRESSION: No evidence of acute cardiopulmonary disease. POS: [facility]
[2018-11-27 16:04] LABS: ALT (SGPT) 21 U/L (8-55); AST (SGOT) 23 U/L (5-34); Albumin 4.2 g/dL (3.5-5.0); Alkaline Phosphatase 31 U/L (40-150); Anion Gap 15 mmol/L (10-20); BUN (Urea Nitrogen) 42 mg/dL (8.4-25.7); Bilirubin, Total 0.3 mg/dL (0.2-1.2); Calc. Creatinine Clearance 0 mL/min (70-130); Calcium 9.5 mg/dL (7.8-10.44); Carbon Dioxide 21 mmol/L (22-29); Chloride 105 mmol/L (98-107); Estimated GFR-MDRD 18; Globulin 3.5 g/dL (2.4-3.5); Glucose 165 mg/dL (70-105); Lipase 51 U/L (8-78); Potassium 4.8 mmol/L (3.5-5.1); Protein, Total 7.7 g/dL (6.0-8.3); Sodium 136 mmol/L (136-145)
[2018-11-27 16:24] LABS: CKMB 2.9 ng/mL (0-6.6)
--- NOTE | 2018-11-27 18:33 | PDOC.FPRHP ---
- History of Present Illness Chief Complaint: chest pain History of Present Illness: The patient is a 53YOM with a PMH significant for 2 prior MIs & CAD s/p CABG & stent placement, HFrEF s/p AICD placement, IDDMII, HTN, & HLD who presented to the ED with a CC of left-sided chest pain that began at ~13:00 today. Per the patient, he was helping his mother move some boxes at home and had sudden onset L-sided chest pain with radiation into his left shoulder and arm that he described as pressure-like. He described the pain as sporadic in timing lasting a few hours before subsiding on its own. He took a baby ASA at home but it not provide adequate relief so he decided to come to the ED for further evaluation. He reported some associated nausea, dizziness and shortness of breath but denied any nausea or diaphoresis. He denies ever having had any pain like this before and rated his pain at an 8/10 in severity at the time of examination. He reports having had a normal stress test with Dr. Devine ~1 year ago. Per chart review last stress was September of 2017 and showed no reversible ischemia, just fixed inferior hypokinesis.. ED Course: 324mg ASA & 1L NS - Allergies/Adverse Reactions Allergies Allergy/AdvReac Type Severity Reaction Status Date / Time No Known Drug Allergies Allergy Verified 11/27/18 20:46 - Home Medications Medication Instructions Recorded Confirmed Type Aspirin [Ecotrin Low Strength] 81 mg PO DAILY 12/02/13 11/27/18 History Gabapentin 600 mg PO BID 12/02/13 11/27/18 History Fenofibrate [Tricor] 160 mg PO DAILY #0 tab 08/18/14 11/27/18 Rx Rosuvastatin [Crestor] 20 mg PO HS #0 tab 12/29/14 11/27/18 Rx Nitroglycerin 0.4 mg SL Q5MIN PRN 03/02/15 11/27/18 History Carvedilol [Coreg] 6.25 mg PO BID #60 tab 10/15/17 11/27/18 Rx Cephalexin [Keflex] 500 mg PO Q6H PRN 11/27/18 11/27/18 History Insulin Detemir [Levemir] 55 units SC DAILY 11/27/18 11/27/18 History - History PMHx: CAD s/p stent placement, IDDMII, HFrEF (40-45% per ECHO in 2014), HTN, HLD , CKDIII, anemia of chronic disease PSHx: L knee sx FHx: sister- HTN Social: Former smoker, 2ppd for many years. Quit 3 years ago. No EtOH or drug use. - Review of Systems General: denies: fever/chills, weight/appetite/sleep changes Eyes: denies: eye pain, vision changes ENT: denies: nasal congestion, rhinorrhea Respiratory: reports: shortness of breath. denies: cough Cardiovascular: reports: chest pain. denies: edema Gastrointestinal: reports: nausea. denies: vomiting, diarrhea, constipation, abdominal pain Genitourinary: denies: dysuria Skin: reports: other (chronic L foot sore). denies: rashes Musculoskeletal: reports: pain, tenderness Neurological: denies: syncope, seizure Psychological: denies: anxiety, depression - Vital signs BP: 143/109 HR: 76 RR: 18 Tmax: 98.8F Pox: 98% on RA Wt: 72 kg - Physical Exam Constitutional: NAD, awake, alert and oriented, well developed HEENT: normocephalic and atraumatic, grossly normal vision, grossly normal hearing Neck: supple, FROM Chest: other (TTP over left chest shoulder & upper arm w/ AICD in place over left upper chest) Heart: RRR, normal S1/S2, no murmurs/rubs/gallops, pulses present, no edema Lungs: CTAB, no respiratory distress, good air movement, no rales/rhonchi, no wheezing, no retractions Abdomen: soft, non-tender, bowel sounds present Musculoskeletal: normal structure, ROM grossly normal Neurological: no focal deficit, CN II-XII intact (grossly) Skin: good turgor, capillary refill <2 seconds, no jaundice, other (chronic healing ulcer on L toe w/ no odor or drainage noted; covered in a clean, dry & intact bandage) Heme/Lymphatic: no unusual bruising or bleeding, no purpura, no petechia Psychiatric: normal mood and affect, good judgment and insight, intact recent and remote memory FMR H&P: Results - Labs Result Diagrams: 11/27/18 15:20 11/27/18 15:20 Lab results: WBC 6.7 thou/uL (4.8-10.8) 11/27/18 15:20 Hgb 11.6 g/dL (14.0-18.0) L 11/27/18 15:20 Hct 34.5 % (42.0-52.0) L 11/27/18 15:20 MCV 79.2 fL (78.0-98.0) 11/27/18 15:20 Plt Count 271 thou/uL (130-400) 11/27/18 15:20 Neutrophils % 58.9 % (42.0-75.0) 11/27/18 15:20 Sodium 136 mmol/L (136-145) 11/27/18 15:20 Potassium 4.8 mmol/L (3.5-5.1) 11/27/18 15:20 Chloride 105 mmol/L (98-107) 11/27/18 15:20 Carbon Dioxide 21 mmol/L (22-29) L 11/27/18 15:20 BUN 42 mg/dL (8.4-25.7) H 11/27/18 15:20 Creatinine 3.49 mg/dL (0.7-1.3) H 11/27/18 15:20 Glucose 165 mg/dL (70-105) H 11/27/18 15:20 Calcium 9.5 mg/dL (7.8-10.44) 11/27/18 15:20 Total Bilirubin 0.3 mg/dL (0.2-1.2) 11/27/18 15:20 AST 23 U/L (5-34) 11/27/18 15:20 ALT 21 U/L (8-55) 11/27/18 15:20 Alkaline Phosphatase 31 U/L (40-150) L 11/27/18 15:20 CK-MB (CK-2) 2.9 ng/mL (0-6.6) 11/27/18 15:20 B-Natriuretic Peptide 92.8 pg/mL (0-100) 11/27/18 15:20 Serum Total Protein 7.7 g/dL (6.0-8.3) 11/27/18 15:20 Albumin 4.2 g/dL (3.5-5.0) 11/27/18 15:20 Lipase 51 U/L (8-78) 06/07/19 15:20 - EKG Interpretation EKG: NSR - Radiology Interpretation Chest x-ray Status: report reviewed by me (no acute cardiopulmonary findings) FMR H&P: A/P - Problem List (1) Chest pain Current Visit: No Status: Acute Priority: High Code(s): R07.9 - CHEST PAIN , UNSPECIFIED (2) JUANCHO (acute kidney injury) Current Visit: No Status: Acute Code(s): N17.9 - ACUTE KIDNEY FAILURE, UNSPECIFIED Comment: Improved with IV fluids. (3) Diabetes mellitus type 2, uncontrolled Current Visit: No Status: Chronic Code(s): E11.65 - TYPE 2 DIABETES MELLITUS WITH HYPERGLYCEMIA (4) Systolic congestive heart failure Current Visit: No Status: Chronic Code(s): I50.20 - UNSPECIFIED SYSTOLIC ( CONGESTIVE) HEART FAILURE (5) Chronic kidney disease, stage 3 Current Visit: No Status: Chronic Comment: Avoid nephrotoxic meds and limit contrast exposure (6) Coronary artery disease Current Visit: No Status: Chronic Code(s): I25.10 - ATHSCL HEART DISEASE OF [place] CORONARY ARTERY W/O ANG PCTRS Qualifiers: Coronary Disease-Associated Artery/Lesion type: bypass graft [place] vs. transplanted heart: [place] heart Associated angina: without angina Qualified Code(s): I25.810 - Atherosclerosis of coronary artery bypass graft(s) without angina pectoris Comment: Continue on Aspirin and BB. (7) Hyperlipidemia Current Visit: No Status: Chronic Code(s): E78.5 - HYPERLIPIDEMIA, UNSPECIFIED Qualifiers: Hyperlipidemia type: mixed hyperlipidemia Qualified Code(s): E78.2 - Mixed hyperlipidemia Comment: Continue on Statins (8) Hypertension Current Visit: No Status: Chronic Code(s): I10 - ESSENTIAL (PRIMARY) HYPERTENSION Qualifiers: Hypertension type: essential hypertension Qualified Code(s): I10 - Essential (primary) hypertension - Plan 53YOM with a PMH significant for CAD s/p stent placement, IDDMII, HTN & HLD who presented to the ED with a CC of waxing & waning L-sided chest pressure/pain that began around ~13:00 today while lifting some boxes. Atypical chest pain 2/2 MSK strain vs. ACS - Patient's description of character of chest pressure sounds typical; however, he describes it as waxing & waning and endorses TTP over his chest & left shoulder. S/p ASA in the ED but no nitro given yet so will try this also to see if this helps which would be more consistent w/ cardiac etiology. Will also have tylenol available PRN for possible MSK etiology. Initial trop slightly elevated and EKG unchanged from prior EKG in 2017 on review. However, given signifciant cardiac history & risk factors will continue to trend trops & EKGs and monitor on telemetry overnight. - TTE in the AM. TSH, A1c & FLP pending. - Consulted Marii who will see tomorrow AM. Recommended resuming home meds and allowing HH diet pending her recs. JUANCHO on CKD III - Cr elevated at 3.49 & eGFR low at 18. s/p 1L NS in the ER. Will gently hydrate overnight w/ LR @ 75mL/hr & recheck a BMP in the AM. If no improvement, would consider a nephrology consult. - Will renally dose all meds PRN. CAD s/p stent placement - Aware, will resume home meds. HFrEF (40-45% per September 2013 Echo) s/p AICD placement: - Aware, does not appear to be in acute exacerbation as BNP was only 90 and patient does not appear overloaded. - Will be gently hydrate for JUANCHO overnight and resume home meds. IDDMII - Will hold metformin given renal function but will resume home insulin dosing w / mild & bedtime SSI and hypoglycemia protocol. - A1c pending as last documented A1c >14 per chart review. HTN - Will hold BB pending AM stress & continue to monitor BPs closely & treat PRN. HLD - Will resume home meds. - FLP pending as it has been > 1 year since last FLP per chart review. Anemia of chronic disease - Aware, Hgb 11.8 within baseline range. Dispo: Will admit to telemetry for close observation overnight with further management pending cards recs. Anticipated LOS < 2 midnights pending clinical course. Diet: CC, HH low Na IVFs: LR @ 75mL/hr ABx: None DVT PPX: low dose lovenox GI PPx: none CODE STATUS: FULL CODE FMR H&P: Upper Level - Pertinent history 53M presenting to ED with left sided chest pain that started this afternoon. Began with exertion as he was moving some boxes. He endorses radiation to his left shoulder. Associated with SOB and lightheadedness. The pain does not resolve with rest, but will randomly resolve on its own. Pain describes as crushing and vice-like. This does not mimic his prior episodes of CP. Hx of CAD s/p stent and multiple DE's. He sees Dr. Devine in the OP setting, but cannot remember his last appt with him. ED: 1L NS and ASA - Pertinent findings 123/87 mmHg 83bpm 18RR 97% on RA afebrile Gen: in no acute distress CV: RRR; no murmurs; TTP over left chest Pulm: CTA-B Abd: soft; non TTP; no guarding Ext: no cyanosis or edema Skin: sore on left great toe; bandage clean, dry, and intact CXR: no acute process EKG: NSR; evidence of old infarcts; no change from prior EKG's - Plan Date/Time: 11/27/181832 I, Hill Fowler, have evaluated this patient and agree with findings/plan as outlined by computer science intern resident. Pertinent changes/additions are listed here. Atypical CP: diagnosed as NSTEMI by ER provider but no Cardiology consult ordered. Current EKG is consistent with prior EKG's upon chart review. Still concerning with history of CAD s/p CABG and stents, as well as numerous other CV risk factors. Initial troponin indeterminate and f/u troponin is negative. Will perform serial EKG's and monitor pain. Likely consult Cardiology given his history, stress test vs. cath. Last stress test was in September of 2017 and showed no reversible ischemia. Order for TTE placed. BNP normal on admission. JUANCHO on CKD: grossly elevated Cr. Per chart review, he has had even higher elevations dating back to 2015. He is s/p 1L IVF, will continue gentle hydration overnight given history of HFrEF. If no improvement on AM labs, advise nephrology consult. DMII: hold metformin given renal function. Labs in clinic show a HA1C over 14 in September of 2017. Continue morning lantus and add mild SSI with accuchecks qACHS.
[2018-11-27 19:08] LABS: Troponin I 0.019 ng/mL (< 0.028)
[2018-11-27] MEDS ORDERED: Lactated Ringer's 1,000 ML IV SCH (19:51)
[2018-11-27] MEDS ORDERED: Nitroglycerin 0.4 MG TAB (25 Tab Bottle) PO PRN (19:51)
[2018-11-27] MEDS ORDERED: Dextrose 5% in Water 1,000 ML IV PRN (19:51)
[2018-11-27] MEDS ORDERED: Dextrose 50% Abboject 50 ML SYRINGE SLOW IVP PRN (19:51)
[2018-11-27] MEDS ORDERED: HumaLOG 300 UNITS/3 ML VIAL SC PRN ×2 (19:51)
[2018-11-27] MEDS ORDERED: Ondansetron ODT 4 MG TAB PO PRN (19:51)
[2018-11-27] MEDS ORDERED: Acetaminophen 325 MG TAB PO PRN (19:51)
[2018-11-27] MEDS ORDERED: Insulin Glargine 25 UNITS in Pre-Filled Syringe 1 EACH SC SCH (21:00)
[2018-11-27] MEDS ORDERED: Gabapentin 300 MG CAP PO SCH (21:00)
[2018-11-27] MEDS ORDERED: Non-Formulary Item 1 EACH (Insulin Detemir 100 Units/Ml [Levemir] 25 UNITS) SC SCH (21:00)
[2018-11-27] MEDS ORDERED: Rosuvastatin 20 MG TAB PO SCH (21:00)
[2018-11-27] MEDS: Ubidecarenone 50 MG CAP PO SCH (21:32)
[2018-11-27 21:50] LABS: Hemoglobin A1c 11.4 % (4.0-6.0)
[2018-11-27 22:08] LABS: Troponin I 0.019 ng/mL (< 0.028)
[2018-11-27 23:49] VITALS: BMI 27.1
[2018-11-28 00:26] LABS: Amphetamine Not Detected (NotDetected); Barbiturates Screen Not Detected (NotDetected); Benzodiazepine Screen Not Detected (NotDetected); Cocaine Metabolite Screen Not Detected (NotDetected); Medtox Control Line Valid? VALID (VALID); Medtox Reader # READER 4; Methadone Not Detected (NotDetected); Methamphetamine Not Detected (NotDetected); Opiate Screen Not Detected (NotDetected); Oxycodone Screen Not Detected (NotDetected); Phencyclidine (PCP) Not Detected (NotDetected); THC/Cannabinoid Screen Not Detected (NotDetected); Tricyclic Screen Not Detected (NotDetected)
[2018-11-28 05:43] LABS: Anion Gap 11 mmol/L (10-20); BUN (Urea Nitrogen) 30 mg/dL (8.4-25.7); Calc. Creatinine Clearance 39 mL/min (70-130); Calcium 9.5 mg/dL (7.8-10.44); Carbon Dioxide 21 mmol/L (22-29); Cardiac Risk 4.4 (Less than 4.5); Chloride 109 mmol/L (98-107); Cholesterol 123 mg/dl (< 200 Desired); Estimated GFR-MDRD 28; Glucose 114 mg/dL (70-105); HDL Cholesterol 28 mg/dL (>60 Neg Risk); LDL Cholesterol, Calculated 59 mg/dL; Potassium 4.4 mmol/L (3.5-5.1); Sodium 137 mmol/L (136-145); Triglycerides 179 mg/dL (Less than 150)
--- NOTE | 2018-11-28 06:18 | PDOC.FM ---
- Subjective Subjective: NAEO. Chest pain much improved, but still sometimes present worse with palpation. Slept well - Objective Vital Signs & Weight: Vital Signs (12 hours) Temp Pulse Resp BP Pulse Ox 11/28/18 03:48 97.8 F 78 14 117/69 98 11/27/18 19:16 98.0 F 68 12 132/73 99 Weight Weight 78.9 kg I&O: 11/26/18 11/27/18 11/28/18 06:59 06:59 06:59 Intake Total 1730 Output Total 1500 Balance 230 Result Diagrams: 11/27/18 15:20 11/28/18 05:02 Phys Exam - Physical Examination Constitutional: NAD HEENT: PERRLA, moist MMs Neck: full ROM Respiratory: no wheezing, clear to auscultation bilateral Cardiovascular: RRR, no significant murmur nonTTP Neurological: non-focal, moves all 4 limbs Psychiatric: normal affect, A&O x 3 Skin: cap refill <2 seconds Dx/Plan (1) Acute kidney injury superimposed on CKD Code(s): N17.9 - ACUTE KIDNEY FAILURE, UNSPECIFIED; N18.9 - CHRONIC KIDNEY DISEASE, UNSPECIFIED Status: Acute (2) Diabetes mellitus Code(s): E11.9 - TYPE 2 DIABETES MELLITUS WITHOUT COMPLICATIONS Status: Acute (3) chest pain Status: Acute (4) Hx of CABG Status: Chronic (5) Hyperlipidemia Code(s): E78.5 - HYPERLIPIDEMIA, UNSPECIFIED Status: Chronic Qualifiers: Hyperlipidemia type: mixed hyperlipidemia Qualified Code(s): E78.2 - Mixed hyperlipidemia (6) Hypertension Code(s): I10 - ESSENTIAL (PRIMARY) HYPERTENSION Status: Chronic Qualifiers: Hypertension type: essential hypertension Qualified Code(s): I10 - Essential (primary) hypertension (7) Systolic congestive heart failure Code(s): I50.20 - UNSPECIFIED SYSTOLIC (CONGESTIVE) HEART FAILURE Status: Chronic - Plan Plan: 53YOM with a PMH significant for CAD s/p stent placement, IDDMII, HTN & HLD admitted for chest pain, aCS rule out #Atypical pain, ACS rule out -ddx: MSK vs. ACS -initial troponin indeterminate, now negative x2 -no new EKG changes, last NST 1 year ago that was negative for ischemia -however extensive cardiac history & risk factors, consulted, further recs appreciated -Pending TTE -continue maximum medical management with statin, ASA, BB (held in anticipation of NST) #JUANCHO on CKD III -3.49-> 2.4, improved and around baseline based on chart review -patient tolerating PO, will d/c fluids #CAD s/p stent placement - Aware, will resume home meds. #HFrEF (40-45% per September 2013 Echo) s/p AICD placement: - Aware, does not appear to be in acute exacerbation as BNP was only 90 and patient does not appear overloaded. - Will be gently hydrate for JUANCHO overnight and resume home meds. #IDDMII - Will hold metformin given renal function - A1c 11 - resume home insulin -continue accuchecks and SS #HTN - Will hold BB pending AM stress & continue to monitor BPs closely & treat PRN. #HLD - Will resume home meds. - FLP pending as it has been > 1 year since last FLP per chart review. #Anemia of chronic disease - Aware, Hgb 11.8 within baseline range. Diet: CC, HH low Na ABx: None DVT PPX: low dose lovenox GI PPx: none CODE STATUS: FULL CODE Dispo: pending cardiology recs
[2018-11-28 08:34] VITALS: TEMP 97.5
[2018-11-28] MEDS ORDERED: Enoxaparin Sodium 30 MG/0.3 ML SYRINGE SC SCH (09:00)
[2018-11-28] MEDS ORDERED: Aspirin Chewable 81 MG TAB PO SCH (09:00)
[2018-11-28] MEDS ORDERED: Fenofibrate Nanocrystallized 145 MG TAB PO SCH (09:00)
[2018-11-28] MEDS: Carvedilol 3.125 MG TAB PO SCH ×3 (11:37→17:41)
[2018-11-28] MEDS: Ubidecarenone 50 MG CAP PO SCH (15:33)
[2018-11-28 15:48] VITALS: BP 119/69
--- NOTE | 2018-11-28 15:54 | NM ---
Nuclear medicine Cardiac myocardial perfusion SPECT Ejection fraction study Wall motion cine: DATE: 11/28/2018 History: 53-year-old male with hypertension, coronary artery disease, prior myocardial infarction, diabetes me llitus, status post CABG, congestive heart failure, presents with acute chest pain. TECHNIQUE: Number of days:1 Rest study: Technetium 99m-sestamibi (Cardiolite) dose:11.0 mCi Pharmacologic stress: Lexiscan dose:0.4 mg Stress study: Technetium 99m-sestamibi (Cardiolite) dose:28.5 mCi FINDINGS: Cardiac (myocardial perfusion) SPECT There is a moderate sized fixed inferior lateral and inferior wall perfusion defect. There are no reversible myocardial perfusion defects. Ejection fraction study Left ventricular EF = 57% Wall motion cine Very hypokinetic inferoseptal wall rather than inferolateral wall. IMPRESSION: 1) evidence for inferior/ -inferolateral wall scar/infarction. 2) No evidence of reversible ischemia.
--- NOTE | 2018-11-28 16:18 | CON ---
DATE OF CONSULTATION: PRIMARY CARE PHYSICIAN: [facility]. PRIMARY VP STRATEGIC PLANNING: Dr. Ariat. PRIMARY EP DOCTOR: Dr. Fierro. REASON FOR CARDIOLOGY CONSULT: Chest pain with a history of CAD and stent placement. HISTORY OF PRESENT ILLNESS: Mr. Durham is a 53-year-old male with a significant history of coronary artery disease, chronic kidney disease, hypertension, type 2 diabetes, ischemic cardiomyopathy with AICD placement in 2005, and chronic systolic congestive heart failure. The patient was doing well until yesterday after he helping moving boxes for his mother, he started having tightness in his midsternal area, which radiated to the left arm for 1 hour around 3:00 p.m. yesterday. He denied any other cardiac complaints during the episode. When he was presented to the emergency department some urgent care, the patient was recommend to present to the emergency department for further evaluation and treatment. After the patient received aspirin at the ER, the patient's pain resolved. He also complained of dizziness when he gets up or with quick movement, but he did not have any dizziness during the episode of chest pain. He has a history of ischemic cardiomyopathy with AICD placement in 2005 and AICD generator change out was done September [address] Fierro. He has follow up with Dr. Fierro last week. He was told the patient the AICD function is stable and no abnormal rhythm was detected. He also has a problem with swallowing and a feeling of choking when he eat for 1 week now. He just eats soft food due to symptoms, but he denies any nausea or vomiting. He had a stress test was done in September 2017 shows fixed inferolateral wall defect with hypokinesis due to possible previous infarct with EF 45%. The left heart catheterization was considered, but he has not had since. He had a carotid Doppler study done in 2013 with 25% to 30% bilateral internal carotid artery disease. Then, the patient had echocardiogram was done in November 2013 with EF of 40% to 45%, global hypokinesis, mild mitral valve regurgitation, mild tricuspid regurgitation, and the defibrillator wire noted the in the right ventricle and the patient has an AICD generator change out in September [address] Fierro. PAST MEDICAL HISTORY: Coronary artery disease, ischemic cardiomyopathy, chronic systolic heart failure, type 2 diabetes, hypertension, hyperlipidemia, and chronic kidney disease. PAST SURGICAL HISTORY: CABG x3 in 2005, left knee surgery, cholecystectomy, AICD placement in 2005, and generator change out in September 2013. FAMILY HISTORY: There is significant family history of diabetes. The patient's mother had a history of hypertension and the patient's daughter has history of diabetes. SOCIAL HISTORY: He is single. He had one daughter, who is living well. He lives with his mother. He is an ex-smoker. He used to smoke 2 pack a day, which he quit in 2005 and he had heavy drinker before, but he also quit in 2005. He denied illicit drug abuse before. ALLERGIES: HE HAS NO KNOWN DRUG ALLERGY. MEDICATIONS: He is takin. Gabapentin 600 twice a day. 2. Aspirin 81 mg once a day. 3. TriCor 160 mg once a day. 4. Crestor 20 mg once a day. 5. Nitroglycerin 0.4 mg as needed. 6. Carvedilol 6.25 mg twice a day. 7. Levemir 55 units once a day. 8. Keflex 250 mg once a day every 6 hours p.r.n. REVIEW OF SYSTEMS: A 12-point review of systems unless otherwise mentioned in HPI. He has to wear a boot to the left lower extremity due to the history of like infection to left foot. PHYSICAL EXAMINATION: VITAL SIGNS: Blood pressure 122/72, temperature 97.5, pulse is 72 sinus rhythm, respiratory rate 16, and O2 saturation 99% on room air. GENERAL: The patient is alert and oriented x4, in no acute distress. HEENT: Head, normocephalic and atraumatic. Eyes, extraocular muscle movement intact. ENT and mouth, oral and nasal mucosa moist without lesion. NECK: Supple. Normal range of motion. No JVD. RESPIRATORY: Clear to auscultate bilaterally. No wheezing, rales, or rhonchi noted. CARDIOVASCULAR: Regular rate and rhythm. Normal S1 and S2. There is no S3 or S4. No significant murmurs, heaves, or thrill noted. EXTREMITIES: 2+ pulses in bilateral upper and lower extremities. No edema in lower extremities. ABDOMEN: Soft and nontender. No mass to palpitate. Bowel sounds are present. SKIN: Warm and dry. No erythema, lesion, or rash noted. MUSCULOSKELETAL: The patient able to move all extremities except difficulty in weightbearing to the left foot. The patient denied claudication. PSYCHIATRIC: The patient's mood is appropriate. NEUROLOGIC: The patient is alert and oriented x4. Nonfocal. DIAGNOSTIC DATA: Chest x-ray shows no evidence of acute cardiopulmonary process. LABORATORY DATA: WBC 6.7, hemoglobin 11.6, hematocrit 34.5, platelet 271. Sodium 137, potassium 4.4, BUN 30, creatinine 2.40, glucose 114, calcium 9.5. Hemoglobin A1c is 11.4. Magnesium 1.7. AST 23, ALT 21, cholesterol 123, triglyceride 179, HDL 28, LDL 59. TSH 1.3515. The patient's drug test is negative. ASSESSMENT AND PLAN: 1. Chest pain. Although, the patient's stress test in September 2017 shows questionable result. He has not had any cardiac cath according the patient. A 12-lead EKG has not showed any ST-segment change or T-wave inversion and troponin has been negative. We would like to go ahead and order stress test today to check his cardiac status. At this moment, the patient is asymptomatic. 2. Coronary artery disease with history of coronary artery bypass grafting in 2005. He is on telemetry and he is on Coreg 3.125 mg twice a day and aspirin 81 mg once a day. Also, he is on Crestor and TriCor. 3. Ischemic cardiomyopathy with AICD placement 1 week ago. He will follow up with Dr. Fierro before AICD interrogation, which the patient was told it is normal. We would like to continue to monitor. 4. Chronic systolic heart failure. The patient's condition is stable. The patient denies shortness of breath, swelling in lower extremity, or abdomen bloating. We would like to continue to monitor. 5. Hypertension. His blood pressure is stable at this moment. We would like to continue current medication. 6. Chronic kidney disease. 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 Strongly recommend the patient to follow up with his artillery specialist as soon as possible. 7. Type 2 diabetes. The patient's blood glucose is stable at this moment. He is on Lantus, which is managed by the patient's primary care doctor. Thank you very much for allowing the Cardiology Service to participate in the care of this patient. We will follow along the patient's care team and make further recommendations as appropriate. Job ID: [id number]
[2018-11-28] MEDS ORDERED: Regadenoson 0.4 MG/5 ML SYRINGE ONE (20:07)
--- NOTE | 2018-11-28 23:27 | CON ---
DATE OF CONSULTATION: 11/28/2018 INDICATION FOR CONSULTATION: A 53-year-old gentleman with history of known coronary artery disease, status post bypass surgery, status post angioplasty and stent placement, status post myocardial infarction, status post AICD implant. This is a very unfortunate 53-year-old gentleman, who has a long history of coronary artery disease, has suffered a myocardial infarction, I believe in 2005. He at that time had a cardiac arrest. He underwent angioplasty and stent placement and subsequently underwent bypass surgery. According to the records, he has had a CROWELL to the left anterior descending artery, saphenous vein graft to the obtuse marginal branch of the left circumflex, and also the posterior descending artery and the right coronary artery. He has been doing relatively well. He is followed up by Dr. Arita. He did undergo stress testing last year and was noted to have an inferior scar. There was some discussion about cardiac catheterization; however, this has not yet been done according to the patient, and I see no records that he has had a cardiac catheterization. At this time, he was helping his mother to move some boxes, which were pretty heavy and he developed some chest pain and then shoulder pain, not at that time, but he did take a nap and when he woke up from his nap, he knows that he was having some discomfort. He presented to the emergency room. He underwent stress testing today, which showed the same essential pictures he did in 2018. He continues to have an inferior scar, but there is no evidence of reversible ischemia. Interestingly enough, his ejection fraction by stress testing is about 57%. There has been no significant change since 2018. His EKG was unremarkable for any acute changes that would indicate ischemia. Also, his cardiac enzymes are negative. His first troponin I was 0.03, but since that time, it has been 0.019, not indicative of myocardial infarction. His other laboratory data shows that he has renal insufficiency, which is rather significant with a creatinine of 3.49. He had been followed by Nephrology in the past, but has not followed up. At this time, he denies any chest discomfort and is desiring to be discharged to go home. Otherwise, he states also he has been shocked several times by his defibrillator. I did not have any correlation that that is true and I am not sure that he has had his defibrillator checked since he has been admitted to the hospital. We can ask him to check up from the floor and do a transtelephonic check of the pacemaker. He is somewhat unsure about his past medical history. He was asked several times whether he had undergone a cardiac catheterization. He denied it; however, he did have a cardiac catheterization prior to undergoing his angioplasty and stent placement as well as prior to undergoing bypass surgery, but it does not appear that he has had any recent stress testing. He has had no significant arrhythmias since his admission and otherwise he is stable. PAST MEDICAL HISTORY: Please refer the notes dictated by the nurse practitioner. SOCIAL HISTORY: Please refer the notes dictated by the nurse practitioner. FAMILY HISTORY: Please refer the notes dictated by the nurse practitioner. REVIEW OF SYSTEMS: Please refer the notes dictated by the nurse practitioner. MEDICATIONS: Please refer the notes dictated by the nurse practitioner. ALLERGIES: PLEASE REFER THE NOTES DICTATED BY THE NURSE PRACTITIONER. PHYSICAL EXAMINATION: GENERAL: Reveals a middle-aged gentleman. VITAL SIGNS: Blood pressure 119/69, heart rate is 83 and regular. He is afebrile. Respiratory rate is 12 to 18. O2 saturation is 100% on room air. Blood pressure is 122/72. HEENT: Shows head to be normocephalic and atraumatic. NECK: Carotid pulses are present. I did not hear any significant bruits. CHEST: His chest is actually clear to auscultation without any rales, rhonchi, or wheezing. He has a well-healed midline surgical incision after median sternotomy. CARDIOVASCULAR: Reveals a regular rate and rhythm. He has a very soft systolic murmur noted at the lower sternal border. Otherwise, relatively is unremarkable. ABDOMEN: Soft and nontender. Positive bowel sounds are present. EXTREMITIES: Show no clubbing, cyanosis, or edema. Pedal pulses are decreased. NEUROLOGICAL: He appears to be intact. SKIN: Warm and dry. IMPRESSION: 1. Atypical pain after lifting heavy boxes. Certainly, he has coronary artery disease, but his stress testing is negative and does not show any evidence of acute ischemia. He has no change from a stress test in 2018. He certainly could consider undergoing repeat cardiac catheterization, which could be done as an outpatient. This had been discussed with Dr. Arita in the past. He will need to follow up in the office to decide whether he wants to proceed or not. At this time, he appears to be stable and no further chest pain. 2. History of diabetes. He has a hemoglobin A1c of 11.4, obviously does not control his diabetes. 3. History of coronary artery disease, status post bypass surgery, which appears to be stable. Again as noted in #1, we will need to discuss for further followup with Dr. Arita for possible cardiac catheterization in the future. 4. Hypertension, which is under good control at this time. 5. History of congestive heart failure and AICD implant. This also appears to be stable. Ejection fraction by stress testing was 57%. On his recent echocardiogram, which was performed on this admission, his ejection fraction is estimated at 40% to 45% by echocardiogram and again the inferior wall appeared to be hypokinetic. At this time, I believe that the patient is stable. He could be discharged to home and needs to follow up with Dr. Arita in the next few weeks. Job ID: [id number]
--- NOTE | 2018-11-29 02:29 | DIS ---
DATE OF ADMISSION: 11/27/2018 DATE OF DISCHARGE: 11/28/2018 ADMITTING ATTENDING: Junior Phillips MD DISCHARGE ATTENDING: Junior Phillips MD RESIDENT: Anabella Ordoñez MD CONSULTS: Cardiology, Dr. Colvin. IMAGING AND PROCEDURES: 1. Nuclear stress test on 12/08/2018: LVEF of 57%. Evidence of inferolateral wall scar infarction. No evidence of reversible ischemia. 2. Transthoracic echo: Ejection fraction 45% to 49%, mild pulmonic regurgitation present, mild tricuspid regurgitation present, trace mitral regurgitation present, pacemaker AICD in RA cavity. PRIMARY DIAGNOSES: 1. Chest pain, acute coronary syndrome ruled out, likely musculoskeletal. 2. Acute kidney injury on chronic kidney disease 3. SECONDARY DIAGNOSES: 1. Myocardial infarction, status post coronary artery bypass graft. 2. Coronary artery disease with status post stent placement. 3. Systolic heart failure with ejection fraction of 45% to 54%. 4. Insulin dependent type 2 diabetes. 5. Hypertension. 6. Hyperlipidemia. 7. Anemia of chronic disease. DISCHARGE MEDICATIONS: 1. Gabapentin 600 mg p.o. b.i.d. 2. Aspirin 81 mg daily. 3. Fenofibrate 160 mg p.o. daily. 4. Crestor 20 mg p.o. at bedtime. 5. Nitroglycerin 0.4 mg sublingual q.5 minutes p.r.n. for chest pain. 6. Coreg 6.25 mg p.o. b.i.d. 7. Levemir 55 units subcu daily. 8. Keflex 500 mg p.o. q.6 hours p.r.n. HISTORY OF PRESENT ILLNESS/HOSPITAL COURSE: Mr. Samuel Durham is a 53-year-old male with extensive cardiac history of NM, status post CABG with stent placement, who presents to the ER for chest pain. It was atypical in nature due to reproducibility on examination. EKG changes did not have any acute findings and presence of indeterminate troponin of 0.033. He was admitted for ACS rule out and Cardiology was consulted. The patient underwent stress test which the findings are listed above, which were consistent with the same findings on the stress test a year and a half ago-essentially stable inferiorlateral wall scar infarction with no evidence of reversible ischemia. Cardiac enzymes trended negative x2. and patient's chest pain resolved. It was thought that this was likely due to demand ischemia or MSK etiology. JUANCHO on CKD 3: The patient presented with an elevated creatinine on top of CKD 3. He has not followed with bus matron for several years. Creatinine improved to baseline with gentle fluid resuscitation. He is instructed to follow up outpatient to establish care with a bus matron. DISPOSITION: Stable. DISCHARGE INSTRUCTIONS: 1. Location: Home. 2. Diet: Heart healthy, diabetic diet. Fluid restricted. 3. Activity: Ad-stefanie, advance as tolerated. FOLLOWUP: 1. Please follow up with PCP, Dr. Chaitanya Salgado, at [facility] in 1 to 2 days. 2. Please follow up with nephrologists in order to establish care. Job ID: [id number] [facility]ade
--- NOTE | 2018-11-30 08:13 | HP ---
ADDENDUM: Please see the history and physical done by Dr. Carol Bruno from 11/27 as well as the progress note from 11/[address] Anabella Ordoñez. The patient was seen, evaluated, discussed and examined with the residents by bedside. I agree with history and physical. HISTORY OF PRESENT ILLNESS: This is a 53-year-old gentleman with known coronary artery disease including MIs in the past and coronary artery bypass graft surgery. Came in with pretty classic chest pain after moving some boxes. Initial cardiac workup so far has been negative with just minimum elevated troponin. He is asymptomatic currently. Past medical history, past surgical history, family history, social history, current home medicines, and review of systems, all per Dr. Bruno's history and physical, for which I agree. PHYSICAL EXAMINATION: GENERAL: No apparent distress, lying flat, no respiratory distress. VITAL SIGNS: Stable. Blood pressure initially was elevated, but has come down. ENT: Within normal limits. Conjunctivae not pale. Sclerae anicteric. CHEST: Clear. HEART: Regular rate and rhythm without any murmurs, rubs, or gallops. Could not really reproduce any chest wall pain or palpitations. ABDOMEN: Soft, nontender, and nondistended. EXTREMITIES: Showed no edema. LABORATORY DATA: Blood workup showed slightly elevated sugar of 165, hemoglobin a little bit low at 11.6, beta natriuretic peptide is normal, and troponins were pretty normal. EKG was normal. Chest x-ray was fairly normal. ASSESSMENT AND PLAN: 1. Chest pain with known coronary artery disease. 2. Elevated creatinine to come down with some fluids. 3. Diabetes, sounds fairly well controlled. 4. Systolic congestive heart failure, history. PLAN: We will see what Cardiology says, they have already been notified. It sounds like he had a stress test about a year ago. We will see if they want to consider repeating that or not or just taking care of this as an outpatient, because otherwise he is fairly stable. If they do not want to do a stress test, likely will be able to be discharged home. We are going to work with sugars as his hemoglobin A1c came back really high at 11.4. Job ID: [id number]
--- NOTE | 2018-12-01 08:53 | EKG ---
Test Reason : Blood Pressure : / mmHG Vent. Rate : 073 BPM Atrial Rate : 073 BPM P-R Int : 224 ms QRS Dur : 098 ms QT Int : 374 ms P-R-T Axes : 041 -19 030 degrees QTc Int : 412 ms Sinus rhythm with 1st degree A-V block Inferior infarct (cited on or before 24-JAN-2007) Anterior infarct (cited on or before 29-JAN-2012) Abnormal ECG When compared with ECG of 27-NOV-2018 15:08, (Unconfirmed) No significant change was found Confirmed by DARWIN RICHARDSON, SGwendolyn ([id number]) on 12/01/2018 8:53:28 AM Referred By: Confirmed By:DR. Shar GRANADOS MD
--- NOTE | 2018-12-02 12:08 | STRESS ---
Acquisition Time: 2018-11-28 13:59:05 Total Exercise Time: 00:01:00 Test Indications: CHEST PAIN Medications: Protocol: LEXISCAN Max HR: 100 BPM 60% of Pred: 165 BPM Max BP: 120/060 mmHG Max Work Load: 1.0 METS RESTING ECG: NORMAL SINUS RHYTHM AT 69 SYMPTOMS: NONE APPROPRIATE BP RESPONSE FOR LEXISCAN ECTOPY: NONE ECG STRESS: NO SIGNIFICANT CHANGES INTERPRETATION: INDETERMINATE/AWAIT NUCLEAR IMAGES FOR DEFINITIVE DIAGNOSIS Confirmed by CHARLES DOWNS ([id number]), editorial project manager MANPREET GARCIA ([id number]) on 12/02/2018 12:08:01 PM Referred By: Confirmed By:CHARLES DOWNS
== END 2018-11-28 19:10 | disposition home or self-care (01) ==
LOC: ERS 15:04 → 2SW 16:21
PROVIDERS: ADMIT Family Medicine; ATTEND Family Medicine
DX: R07.89 Other chest pain (principal); I13.0 Hypertensive heart and chronic kidney disease with heart failure and stage 1 through stage 4 chronic kidney disease, or unspecified chronic kidney disease; E11.22 Type 2 diabetes mellitus with diabetic chronic kidney disease; N17.9 Acute kidney failure, unspecified; N18.3 Chronic kidney disease, stage 3 (moderate); I50.22 Chronic systolic (congestive) heart failure; D63.1 Anemia in chronic kidney disease; I25.10 Atherosclerotic heart disease of native coronary artery without angina pectoris; I21.9 Acute myocardial infarction, unspecified; I25.5 Ischemic cardiomyopathy; E78.2 Mixed hyperlipidemia; R79.89 Other specified abnormal findings of blood chemistry; Z87.891 Personal history of nicotine dependence; Z95.5 Presence of coronary angioplasty implant and graft; Z95.1 Presence of aortocoronary bypass graft; Z79.82 Long term (current) use of aspirin; Z79.4 Long term (current) use of insulin; Z79.899 Other long term (current) drug therapy
CPT/HCPCS: 71045; 78452; 80048; 80061; 80306; 82553; 82962 ×2; 83036; 83690; 83735; 83880; 84484 ×2; 93005; 93017; 93306; 94760; 96360; 96361 ×3; 97139; 99285; A9500; G0378 ×2; 36415; 36416; 80053; 84443; 85025; 93010; J1825; J2785

== ENCOUNTER 2018-12-10 13:52 | Inpatient (IN) | payer MEDICARE, MEDICAID ==
[2018-12-10 15:36] LABS: #Eosinphils 0.2 thou/uL (0.0-0.7); #Lymphocytes 1.5 thou/uL (1.20-3.40); #Monocytes 0.6 thou/uL (0.11-0.59); #Neutrophils 5.2 thou/uL (1.40-6.50); %Basophils 0.5 % (0.0-1.0); %Eosinophils 2.1 % (0.0-10.0); %Lymphocytes 19.6 % (21.0-51.0); %Monocytes 7.7 % (0.0-10.0); %Neutrophils 70.1 % (42.0-75.0); Hemoglobin 10.7 g/dL (14.0-18.0); Mean Corpuscular HGB CONC 33.4 g/dL (32.0-36.0); Mean Corpuscular Hemoglobin 26.9 pg (27.0-31.0); Mean Corpuscular Volume 80.4 fL (78.0-98.0); Mean Platelet Volume 7.7 fL (7.4-10.4); Platelet Count 292 thou/uL (130-400); RBC Distribution Width 14.8 % (11.5-14.5); Red Blood Cell (RBC) Count 3.99 mill/uL (4.70-6.10); White Blood Cell (WBC) Count 7.4 thou/uL (4.8-10.8)
--- NOTE | 2018-12-10 15:46 | RAD ---
LEFT FOOT 3 VIEWS: HISTORY: Left foot wound with erythema, left foot pain. FINDINGS: No fracture, dislocation, bone destruction, or periosteal reaction was seen. If there is high clinical suspicion for osteomyelitis, further evaluation with MRI should be performe d. IMPRESSION: No acute process. POS: OFF
[2018-12-10 15:54] LABS: ALT (SGPT) 10 U/L (8-55); AST (SGOT) 13 U/L (5-34); Albumin 3.8 g/dL (3.5-5.0); Alkaline Phosphatase 32 U/L (40-150); Anion Gap 12 mmol/L (10-20); BUN (Urea Nitrogen) 57 mg/dL (8.4-25.7); Bilirubin, Total 0.2 mg/dL (0.2-1.2); Calc. Creatinine Clearance 0 mL/min (70-130); Calcium 9.3 mg/dL (7.8-10.44); Carbon Dioxide 24 mmol/L (22-29); Chloride 107 mmol/L (98-107); Estimated GFR-MDRD 19; Glucose 130 mg/dL (70-105); Potassium 4.7 mmol/L (3.5-5.1); Protein, Total 6.8 g/dL (6.0-8.3); Sodium 138 mmol/L (136-145)
--- NOTE | 2018-12-10 16:54 | PDOC.FPRHP ---
- History of Present Illness Chief Complaint: Foot ulcer History of Present Illness: 53 yo M with PMH IDDM2, HTN, DC x2 s/p CABG, COPD was sent to ED by cellophane casting machine repairer. Has left foot ulcer that began one year ago. Has worsened over past few days with worsening swelling, pain, redness. Unable to bear weight on LLE 2/2 pain. Pain is 10/10. Has neuropathic symptoms in lower extremities including pins and needles sensation. Has chills but denies fever. No CP, SOB, palpitation, headache. Reports some dizziness and chronic blurry vision. Has not seen eye doctor recently. Checks BG regularly and sugars are in 200s, has BG log with him. Does not give additional insulin if BG is elevated. Saw Dr. Price this week. ED Course: 1L NS, 1g Vanc - Allergies/Adverse Reactions Allergies Allergy/AdvReac Type Severity Reaction Status Date / Time No Known Drug Allergies Allergy Verified 12/11/18 01:47 - Home Medications Medication Instructions Recorded Confirmed Type Gabapentin 600 mg PO BID 12/02/13 12/11/18 History Rosuvastatin [Crestor] 20 mg PO HS #0 tab 12/29/14 12/11/18 Rx Nitroglycerin 0.4 mg SL Q5MIN PRN 03/02/15 11/27/18 History Insulin Detemir [Levemir] 55 units SC DAILY 11/27/18 12/11/18 History Aspirin Chewable [Aspirin Chewable 81 mg PO DAILY tab 11/28/18 12/11/18 Rx Tablet] Acetaminophen With Codeine 1 - 2 tablespoon PO Q4HR PRN 12/11/18 12/11/18 History [Tylenol with Codeine #3] Carvedilol [Coreg] 3.125 mg PO BID 12/11/18 12/11/18 History Fenofibrate Nanocrystallized 1 tab PO HS 12/11/18 12/11/18 History [Fenofibrate] Sulfamethoxazole/Trimethoprim 1 tab PO BID 12/11/18 12/11/18 History [Sulfamethoxazole/TMP DS] glipiZIDE [Glipizide] 5 mg PO DAILY 12/11/18 12/11/18 History - History PMHx: IDDM2, HTN, DC x2 s/p CABG, COPD PSHx: L TKR, pacemaker, cholecystectomy, quadruple CABG FHx: mother, daughter- DM Social: Denies current tobacco, alcohol, drug use. Prior smoker, quit 10 years ago. 60 pack year history. - Review of Systems General: reports: fever/chills (chills, no fever). denies: night sweats, fatigue Eyes: denies: vision changes ENT: denies: nasal congestion Respiratory: denies: cough, congestion, shortness of breath Cardiovascular: denies: chest pain, palpitation, edema Gastrointestinal: denies: nausea, vomiting, diarrhea, abdominal pain Genitourinary: denies: dysuria Skin: reports: lesions (L foot ulcer). denies: rashes Musculoskeletal: reports: pain, tenderness, swelling, other (erythema) Neurological: reports: numbness (BLE). denies: weakness - Vital signs BP: 98/63, Pulse: 92, Resp: 19, Temp: 98.8 (Oral), Pain: 10, O2 sat: 98 on Room Air, Time: 12/10/2018 14:05. BP: 140/85, Pulse: 87 (Regular), Resp: 16 (Non-Labored), Pain: 7/10 (Sharp), O2 sat: 99 on Room Air, Time: 12/10/2018 16:00. Weight 78kg - Physical Exam Constitutional: NAD, awake, alert and oriented HEENT: normocephalic and atraumatic, EOMI, no scleral icterus, grossly normal vision, grossly normal hearing, MMM Neck: supple, FROM Chest: no-tender to palpation, no lesions Heart: RRR, normal S1/S2, no murmurs/rubs/gallops Lungs: CTAB, no respiratory distress Abdomen: soft, non-tender, bowel sounds present Musculoskeletal: normal structure, normal tone, other Neurological: no focal deficit Skin: good turgor, capillary refill <2 seconds -Skin: skin breakdown on bottom on left foot, covered with bandage; on dorsum of left foot erythema, warmth, and swelling; pedal and dorsalis pulses present b/l; sensation intact Heme/Lymphatic: no unusual bruising or bleeding Psychiatric: normal mood and affect FMR H&P: Results - Labs Result Diagrams: 12/11/18 05:43 12/11/18 05:43 Lab results: WBC 7.4 thou/uL (4.8-10.8) 12/10/18 15:19 Hgb 10.7 g/dL (14.0-18.0) L 12/10/18 15:19 Hct 32.1 % (42.0-52.0) L 12/10/18 15:19 MCV 80.4 fL (78.0-98.0) 12/10/18 15:19 Plt Count 292 thou/uL (130-400) 12/10/18 15:19 Neutrophils % 70.1 % (42.0-75.0) 12/10/18 15:19 ESR Westergren 78 mm/hr (Less than 20) 12/10/18 15:19 Sodium 138 mmol/L (136-145) 12/10/18 15:19 Potassium 4.7 mmol/L (3.5-5.1) 12/10/18 15:19 Chloride 107 mmol/L (98-107) 12/10/18 15:19 Carbon Dioxide 24 mmol/L (22-29) 12/10/18 15:19 BUN 57 mg/dL (8.4-25.7) H 12/10/18 15:19 Creatinine 3.45 mg/dL (0.7-1.3) H 12/10/18 15:19 Glucose 130 mg/dL (70-105) H 12/10/18 15:19 Lactic Acid 0.6 mmol/L (0.5-2.2) 12/10/18 15:19 Calcium 9.3 mg/dL (7.8-10.44) 12/10/18 15:19 Total Bilirubin 0.2 mg/dL (0.2-1.2) 12/10/18 15:19 AST 13 U/L (5-34) 12/10/18 15:19 ALT 10 U/L (8-55) 12/10/18 15:19 Alkaline Phosphatase 32 U/L (40-150) L 12/10/18 15:19 C-Reactive Protein 9.98 mg/dL (= or < 0.5) H 12/10/18 15:19 Serum Total Protein 6.8 g/dL (6.0-8.3) 12/10/18 15:19 Albumin 3.8 g/dL (3.5-5.0) 12/10/18 15:19 - Radiology Interpretation Other Status: report reviewed by me (X ray of L foot: no acute process) FMR H&P: A/P - Problem List (1) JUANCHO (acute kidney injury) Current Visit: No Status: Acute Code(s): N17.9 - ACUTE KIDNEY FAILURE, UNSPECIFIED Comment: Improved with IV fluids. (2) Diabetes mellitus Current Visit: No Status: Acute Code(s): E11.9 - TYPE 2 DIABETES MELLITUS WITHOUT COMPLICATIONS (3) CHF (congestive heart failure) Current Visit: No Status: Chronic Code(s): I50.9 - HEART FAILURE, UNSPECIFIED Comment: ef 45% (4) GERD (gastroesophageal reflux disease) Current Visit: No Status: Chronic Code(s): K21.9 - GASTRO-ESOPHAGEAL REFLUX DISEASE WITHOUT ESOPHAGITIS Qualifiers: Esophagitis presence: esophagitis presence not specified Qualified Code(s) : K21.9 - Gastro-esophageal reflux disease without esophagitis (5) Hx of CABG Current Visit: No Status: Chronic (6) Hyperlipidemia Current Visit: No Status: Chronic Code(s): E78.5 - HYPERLIPIDEMIA, UNSPECIFIED Qualifiers: Hyperlipidemia type: mixed hyperlipidemia Qualified Code(s): E78.2 - Mixed hyperlipidemia Comment: Continue on Statins (7) Hypertension Current Visit: No Status: Chronic Code(s): I10 - ESSENTIAL (PRIMARY) HYPERTENSION Qualifiers: Hypertension type: essential hypertension Qualified Code(s): I10 - Essential (primary) hypertension (8) Systolic congestive heart failure Current Visit: No Status: Chronic Code(s): I50.20 - UNSPECIFIED SYSTOLIC ( CONGESTIVE) HEART FAILURE - Plan Diabetic foot wound, L foot Patient w/ diabetic foot wound x 1 yr, with acute worsening. X ray showing no acute process. - Elevated CRP; normal ESR and LA - Procal pending - Arterial dopplers pending - Will start IV vanc and zosyn - MRI pending to further evaluate wound. Can consult gen surg if needed. - PT to eval and treat - Wound care consulted JUANCHO on CKD stage 4 - BUN/Cr 57/3.45, above baseline - gentle fluids HFrEF - Echo earlier this month showing EF 40-45% - No signs of fluid overload at this time, will continue to monitor - continue home meds DMII - continue home levemire, mild SS HTN - continue home meds, continue to monitor Normocytic anemia - Hgb/Hct 10.7/32.1 - Will continue to monitor, likely due to CKD CAD s/p stent placement - no acute chest pain or symptoms, will continue to monitor COPD - home meds, duonebs PRN DVT ppx: Heparin Diet: HH Dispo: >2 midnights Case discussed with Dr. Jose Angel CRAIG H&P: Upper Level - Pertinent history 53 yo HM with PMH of uncontrolled IDDM2, CAD s/p stent, HTN, HLD presenting with chronic left foot wound that has acutely worsened over the last few days. Sent to ER by cellophane casting machine repairer for evaluation of osteomyelitis and general surgery consultation. - Pertinent findings VSS - Plan Date/Time: 12/10/18 [id number] I, Chaitanya Salgado MD PGY3, have evaluated this patient and agree with findings/ plan as outlined by university internship resident. Pertinent changes/additions are listed here. 1. Left diabetic foot wound -Admit to inpatient medical for IV abx and general surgery consultation. -Obtain procalcitonin. -Trend labs. PPx: Heparin for VTE, no GI indicated FULL code disposition: Inpatient status for anticipated length of stay greater than 2 nights, pending clinical course. Addendum - Attending - Attending Attestation Date/Time: 12/11/18 [id number] I personally evaluated the patient and discussed the management with Dr. Goodwin on the evening of 12/10/18. I agree with the History, Examination, Assessment and Plan documented above with any addition or exceptions noted below.
[2018-12-10] MEDS ORDERED: Acetaminophen 650 MG Suppository PR PRN (20:08)
[2018-12-10] MEDS ORDERED: Dextrose 5% in Water 1,000 ML IV PRN (20:08)
[2018-12-10] MEDS ORDERED: Ondansetron ODT 4 MG TAB PO PRN (20:08)
[2018-12-10] MEDS ORDERED: Ondansetron PF 4 MG/2 ML Vial IVP PRN (20:08)
[2018-12-10] MEDS ORDERED: Nitroglycerin 0.4 MG TAB (25 Tab Bottle) SL PRN (20:08)
[2018-12-10] MEDS ORDERED: Dextrose 50% Abboject 50 ML SYRINGE SLOW IVP PRN (20:08)
[2018-12-10] MEDS: Lactated Ringer's 1,000 ML IV SCH (21:13)
[2018-12-10] MEDS: Gabapentin 300 MG CAP PO SCH (21:22)
[2018-12-10] MEDS: Carvedilol 6.25 MG TAB PO SCH (21:22)
[2018-12-10] MEDS: Acetaminophen 325 MG TAB PO PRN (21:22)
[2018-12-10] MEDS: Piperacillin/Tazobactam 2.25 GM in Sodium Chloride 0.9% 100 ML IVPB SCH (21:23)
[2018-12-10] MEDS: Heparin 5,000 UNITS/ML VIAL SC SCH (21:23)
--- NOTE | 2018-12-10 21:26 | ULT ---
LEFT LOWER EXTREMITY ARTERIAL DOPPLER EXAM: 12/10/18 HISTORY: Diabetic foot wound. Real time color Doppler evaluation of the left lower extremity was performed. PSV (cm/s) Common femoral artery 175 Profunda femoral 94 Proximal superficial femoral artery 90 Mid 107 Distal 115 Popliteal 113 Anterior tibial 73 Posterior tibial 72 Dorsalis pedis 98 IMPRESSION: Elevated velocities of the left common femoral artery suggesting some mild proximal aortoiliac diseas e. No significant stenosis otherwise demonstrated. Suggestion of some mild narrowing near the trifurc ation in the calf. POS: OFF
[2018-12-11] MEDS: Piperacillin/Tazobactam 2.25 GM in Sodium Chloride 0.9% 100 ML IVPB SCH ×3 (05:25→22:04)
[2018-12-11] MEDS: Lactated Ringer's 1,000 ML IV SCH ×3 (05:33→21:08)
[2018-12-11 06:04] LABS: #Eosinphils 0.1 thou/uL (0.0-0.7); #Lymphocytes 1.5 thou/uL (1.20-3.40); #Monocytes 0.5 thou/uL (0.11-0.59); #Neutrophils 4.7 thou/uL (1.40-6.50); %Basophils 0.4 % (0.0-1.0); %Eosinophils 2.1 % (0.0-10.0); %Lymphocytes 22.1 % (21.0-51.0); %Monocytes 7.1 % (0.0-10.0); %Neutrophils 68.4 % (42.0-75.0); Mean Corpuscular HGB CONC 32.9 g/dL (32.0-36.0); Mean Corpuscular Hemoglobin 26.5 pg (27.0-31.0); Mean Corpuscular Volume 80.8 fL (78.0-98.0); Mean Platelet Volume 7.6 fL (7.4-10.4); Platelet Count 308 thou/uL (130-400); Red Blood Cell (RBC) Count 4.16 mill/uL (4.70-6.10); White Blood Cell (WBC) Count 6.9 thou/uL (4.8-10.8)
[2018-12-11 06:22] LABS: Anion Gap 13 mmol/L (10-20); BUN (Urea Nitrogen) 38 mg/dL (8.4-25.7); Calc. Creatinine Clearance 0 mL/min (70-130); Calcium 9.3 mg/dL (7.8-10.44); Carbon Dioxide 22 mmol/L (22-29); Chloride 107 mmol/L (98-107); Estimated GFR-MDRD 26; Glucose 117 mg/dL (70-105); Potassium 4.8 mmol/L (3.5-5.1); Sodium 137 mmol/L (136-145)
--- NOTE | 2018-12-11 07:02 | PDOC.FM ---
Addendum entered and electronically signed by Nelda Goodwin MD 12/11/18 11:43 : Added Steedman for pain. Original Note: - Subjective Subjective: This morning the nurse noted the patient's left third toe getting blue, this resolved after about 5 min. The patient endorsed pain during this time. The patient otherwise states that he feels better overall. His pain was at a 4/10. - Objective MAR Reviewed: Yes Vital Signs & Weight: Vital Signs (12 hours) Temp Pulse Resp BP BP Pulse Ox 12/11/18 04:16 98.5 F 74 20 111/76 99 12/11/18 00:00 98.5 F 83 20 102/66 92 L 12/10/18 21:30 100 12/10/18 21:22 136/83 I&O: 12/10/18 12/11/18 12/12/18 06:59 06:59 06:59 Intake Total 1100 Output Total 800 Balance 300 Result Diagrams: 12/11/18 05:43 12/11/18 05:43 Phys Exam - Physical Examination Constitutional: NAD HEENT: PERRLA, moist MMs Neck: supple, full ROM Respiratory: clear to auscultation bilateral Cardiovascular: RRR Gastrointestinal: soft, non-tender, no distention, positive bowel sounds Musculoskeletal: no edema, pulses present bandage over ulcer on bottom of L foot, erythema on dorsum, pulses present unable to move toes, cap refill <2 sec Neurological: non-focal, moves all 4 limbs Psychiatric: normal affect, A&O x 3 Skin: no rash, normal turgor, cap refill <2 seconds Dx/Plan (1) JUANCHO (acute kidney injury) Code(s): N17.9 - ACUTE KIDNEY FAILURE, UNSPECIFIED Status: Acute (2) Diabetes mellitus Code(s): E11.9 - TYPE 2 DIABETES MELLITUS WITHOUT COMPLICATIONS Status: Acute (3) CHF (congestive heart failure) Code(s): I50.9 - HEART FAILURE, UNSPECIFIED Status: Chronic (4) GERD (gastroesophageal reflux disease) Code(s): K21.9 - GASTRO-ESOPHAGEAL REFLUX DISEASE WITHOUT ESOPHAGITIS Status: Chronic Qualifiers: Esophagitis presence: esophagitis presence not specified Qualified Code(s) : K21.9 - Gastro-esophageal reflux disease without esophagitis (5) Hx of CABG Status: Chronic (6) Hyperlipidemia Code(s): E78.5 - HYPERLIPIDEMIA, UNSPECIFIED Status: Chronic Qualifiers: Hyperlipidemia type: mixed hyperlipidemia Qualified Code(s): E78.2 - Mixed hyperlipidemia (7) Hypertension Code(s): I10 - ESSENTIAL (PRIMARY) HYPERTENSION Status: Chronic Qualifiers: Hypertension type: essential hypertension Qualified Code(s): I10 - Essential (primary) hypertension (8) Systolic congestive heart failure Code(s): I50.20 - UNSPECIFIED SYSTOLIC (CONGESTIVE) HEART FAILURE Status: Chronic - Plan Plan: Diabetic foot wound, L foot Patient w/ diabetic foot wound x 1 yr, with acute worsening. X ray showing no osteo. - Elevated CRP; normal ESR and LA - Procal 0.13 -> 0.11 - Continue IV vanc and zosyn - Gen surg consults, appreciate recommendations. No MRI at this time. - PT to eval and treat - Wound care consulted JUANCHO on CKD stage 4 - BUN/Cr 57/3.45 improved to 38/2.55, will continue to monitor - gentle fluids HFrEF - Echo earlier this month showing EF 40-45% - No signs of fluid overload at this time, will continue to monitor - Continue home meds DMII - Continue home levemir, mild SS HTN - Continue home meds, continue to monitor Normocytic anemia - Hgb/Hct 10.7/32.1 - Will continue to monitor, likely due to CKD CAD s/p stent placement - no acute chest pain or symptoms, will continue to monitor COPD - home meds, duonebs PRN DVT ppx: Heparin Diet: HH Dispo: >2 midnights Addendum - Attending - Attending Attestation Date/Time: 12/12/18 9163 I personally evaluated the patient and discussed the management with I agree with the History, Examination, Assessment and Plan documented above with any addition or exceptions noted below.
[2018-12-11] MEDS: Acetaminophen 325 MG TAB PO PRN ×2 (09:26→21:13)
[2018-12-11] MEDS: Carvedilol 6.25 MG TAB PO SCH ×2 (09:30→21:10)
[2018-12-11] MEDS: Aspirin Chewable 81 MG TAB PO SCH (09:31)
[2018-12-11] MEDS: Heparin 5,000 UNITS/ML VIAL SC SCH ×3 (09:31→21:10)
[2018-12-11] MEDS: Gabapentin 300 MG CAP PO SCH ×2 (09:31→21:10)
[2018-12-11] MEDS: HYDROcodone/Acetaminophen 5/325 mg Tablet PO PRN ×3 (11:39→22:04)
[2018-12-11] MEDS: HumaLOG 300 UNITS/3 ML VIAL SC PRN ×3 (14:00→21:15)
[2018-12-11] MEDS: Vancomycin HCl 1 GM in Premix Bag 1 BAG IVPB SCH (17:09)
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
[2018-12-12] MEDS: Piperacillin/Tazobactam 2.25 GM in Sodium Chloride 0.9% 100 ML IVPB SCH ×3 (05:40→22:31)
[2018-12-12 05:54] LABS: #Basophils 0.1 thou/uL (0.0-0.2); #Eosinphils 0.2 thou/uL (0.0-0.7); #Lymphocytes 1.8 thou/uL (1.20-3.40); #Monocytes 0.6 thou/uL (0.11-0.59); #Neutrophils 4.6 thou/uL (1.40-6.50); %Basophils 0.8 % (0.0-1.0); %Eosinophils 2.2 % (0.0-10.0); %Lymphocytes 25.3 % (21.0-51.0); %Monocytes 7.7 % (0.0-10.0); %Neutrophils 64.1 % (42.0-75.0); Hemoglobin 10.9 g/dL (14.0-18.0); Mean Corpuscular HGB CONC 32.4 g/dL (32.0-36.0); Mean Corpuscular Hemoglobin 26.1 pg (27.0-31.0); Mean Corpuscular Volume 80.6 fL (78.0-98.0); Mean Platelet Volume 7.7 fL (7.4-10.4); Platelet Count 335 thou/uL (130-400); RBC Distribution Width 14.8 % (11.5-14.5); Red Blood Cell (RBC) Count 4.18 mill/uL (4.70-6.10); White Blood Cell (WBC) Count 7.2 thou/uL (4.8-10.8)
[2018-12-12 06:14] LABS: Anion Gap 11 mmol/L (10-20); BUN (Urea Nitrogen) 28 mg/dL (8.4-25.7); Calc. Creatinine Clearance 0 mL/min (70-130); Calcium 9.6 mg/dL (7.8-10.44); Carbon Dioxide 24 mmol/L (22-29); Chloride 104 mmol/L (98-107); Estimated GFR-MDRD 30; Glucose 148 mg/dL (70-105); Potassium 4.6 mmol/L (3.5-5.1); Sodium 134 mmol/L (136-145)
--- NOTE | 2018-12-12 07:50 | PDOC.FM ---
- Subjective Subjective: LILY overnight. Pt doing well and has no complaints this AM. Pain well controlled and tolerating PO intake well. Pt denies GRAVES, CP, SOB, abd pain, NVD. - Objective MAR Reviewed: Yes Vital Signs & Weight: Vital Signs (12 hours) Temp Pulse Resp BP BP BP Pulse Ox 12/12/18 04:00 98.3 F 77 18 111/63 97 12/12/18 00:00 98.5 F 86 18 108/69 96 12/11/18 21:10 127/75 12/11/18 20:00 99.5 F 83 16 127/75 98 Weight Admit Weight 80.739 kg I&O: 12/11/18 12/12/18 12/13/18 06:59 06:59 06:59 Intake Total 1100 3116 Output Total 800 1725 Balance 300 1391 Result Diagrams: 12/12/18 05:11 12/12/18 05:11 Phys Exam - Physical Examination Constitutional: NAD HEENT: sclera anicteric Neck: full ROM Respiratory: no wheezing, clear to auscultation bilateral Cardiovascular: RRR, no significant murmur Gastrointestinal: soft, positive bowel sounds Musculoskeletal: pulses present, edema present (LLE) Neurological: non-focal, moves all 4 limbs Psychiatric: normal affect, A&O x 3 Skin: cap refill <2 seconds Dx/Plan (1) Diabetic foot ulcer associated with type 2 diabetes mellitus Code(s): E11.621 - TYPE 2 DIABETES MELLITUS WITH FOOT ULCER; L97.509 - NON- PRESSURE CHRONIC ULCER OTH PRT UNSP FOOT W UNSP SEVERITY Status: Acute Qualifiers: Diabetic foot ulcer location: midfoot Laterality: left Non-pressure ulcer stage: unspecified non-pressure ulcer stage Qualified Code(s): E11.621 - Type 2 diabetes mellitus with foot ulcer; L97.429 - Non-pressure chronic ulcer of left heel and midfoot with unspecified severity Plan: -Pt presented with LLE diabetic foot wound that has been present for about 10 years. -Pt has been seeing podiatry outpatient and was sent to ER for admission and general surgery consultation. -General surgery recommendations greatly appreciated. Appears plan is for surgical intervention on Friday AM. -Continue IV abx and local wound care. (2) Acute kidney injury superimposed on CKD Code(s): N17.9 - ACUTE KIDNEY FAILURE, UNSPECIFIED; N18.9 - CHRONIC KIDNEY DISEASE, UNSPECIFIED Status: Acute Plan: -Improved and at baseline. (3) Diabetes mellitus type 2, uncontrolled Code(s): E11.65 - TYPE 2 DIABETES MELLITUS WITH HYPERGLYCEMIA Status: Chronic Plan: -Mildly uncontrolled over the last 24 hrs with 2 values above 200. -Will increase insulin and continue to monitor. - Plan Plan: disposition: Continue to monitor blood glucose closely and continue IV abx. General surgery recommendations greatly appreciated, surgery planned for Friday. Addendum - Attending - Attending Attestation Date/Time: 12/12/18 1111 I personally evaluated the patient and discussed the management with Dr. Salgado I agree with the History, Examination, Assessment and Plan documented above with any addition or exceptions noted below.
[2018-12-12] MEDS: Heparin 5,000 UNITS/ML VIAL SC SCH ×3 (08:41→21:08)
[2018-12-12] MEDS: Aspirin Chewable 81 MG TAB PO SCH (08:44)
[2018-12-12] MEDS: Carvedilol 6.25 MG TAB PO SCH ×2 (08:44→21:07)
[2018-12-12] MEDS: Gabapentin 300 MG CAP PO SCH ×2 (08:44→21:07)
[2018-12-12] MEDS: HYDROcodone/Acetaminophen 5/325 mg Tablet PO PRN ×2 (12:04→21:08)
[2018-12-12] MEDS: Lactated Ringer's 1,000 ML IV SCH ×2 (12:06→13:27)
[2018-12-12 17:34] LABS: Vancomycin, Trough 9.1 ug/mL
[2018-12-12] MEDS: HumaLOG 300 UNITS/3 ML VIAL SC PRN ×2 (18:05→21:09)
[2018-12-12] MEDS: Vancomycin HCl 1 GM in Premix Bag 1 BAG IVPB SCH ×2 (18:16→19:24)
[2018-12-12] MEDS ORDERED: Vancomycin HCl 1.25 GM in Sodium Chloride 0.9% 250 ML 250 ML IVPB SCH (18:45)
[2018-12-12] MEDS ORDERED: Carvedilol 3.125 MG TAB PO SCH (21:00)
[2018-12-13] MEDS: Piperacillin/Tazobactam 2.25 GM in Sodium Chloride 0.9% 100 ML IVPB SCH (06:07)
[2018-12-13] MEDS: Carvedilol 6.25 MG TAB PO SCH ×2 (06:09→21:13)
[2018-12-13 06:26] LABS: #Eosinphils 0.2 thou/uL (0.0-0.7); #Lymphocytes 1.8 thou/uL (1.20-3.40); #Monocytes 0.5 thou/uL (0.11-0.59); #Neutrophils 4.9 thou/uL (1.40-6.50); %Basophils 0.6 % (0.0-1.0); %Eosinophils 2.8 % (0.0-10.0); %Lymphocytes 23.9 % (21.0-51.0); %Neutrophils 65.7 % (42.0-75.0); Hemoglobin 11.9 g/dL (14.0-18.0); Mean Corpuscular HGB CONC 32.8 g/dL (32.0-36.0); Mean Corpuscular Hemoglobin 26.6 pg (27.0-31.0); Mean Corpuscular Volume 81.2 fL (78.0-98.0); Mean Platelet Volume 7.9 fL (7.4-10.4); Platelet Count 348 thou/uL (130-400); RBC Distribution Width 14.6 % (11.5-14.5); Red Blood Cell (RBC) Count 4.46 mill/uL (4.70-6.10); White Blood Cell (WBC) Count 7.4 thou/uL (4.8-10.8)
[2018-12-13 06:48] LABS: Anion Gap 15 mmol/L (10-20); BUN (Urea Nitrogen) 22 mg/dL (8.4-25.7); Calc. Creatinine Clearance 0 mL/min (70-130); Calcium 9.7 mg/dL (7.8-10.44); Carbon Dioxide 20 mmol/L (22-29); Chloride 102 mmol/L (98-107); Estimated GFR-MDRD 34; Glucose 161 mg/dL (70-105); Potassium 4.6 mmol/L (3.5-5.1); Sodium 132 mmol/L (136-145)
--- NOTE | 2018-12-13 07:05 | PDOC.FM ---
- Subjective Subjective: LILY overnight. Pt doing well and has no complaints this AM. Pain well controlled. Pt denies GRAVES, CP, SOB, abd pain, NVD. - Objective MAR Reviewed: Yes Vital Signs & Weight: Vital Signs (12 hours) Temp Pulse Resp BP BP BP Pulse Ox 12/13/18 06:09 123/82 12/13/18 04:57 97.8 F 76 18 123/82 99 12/13/18 00:50 107/60 12/13/18 00:00 99.7 F H 94 18 87/56 L 94/61 94 L 12/12/18 21:07 136/79 12/12/18 20:00 98 12/12/18 19:48 99.7 F H 78 18 136/79 98 Weight Admit Weight 80.739 kg I&O: 12/12/18 12/13/18 12/14/18 06:59 06:59 06:59 Intake Total 3116 2225 Output Total 1725 1875 Balance 1391 350 Result Diagrams: 12/13/18 06:10 12/13/18 06:10 Phys Exam - Physical Examination Constitutional: NAD HEENT: sclera anicteric Neck: full ROM Respiratory: no wheezing, clear to auscultation bilateral Cardiovascular: RRR, no significant murmur Gastrointestinal: soft, positive bowel sounds Musculoskeletal: pulses present, edema present (LLE) Neurological: non-focal, moves all 4 limbs Psychiatric: A&O x 3 Skin: cap refill <2 seconds Dx/Plan (1) Diabetic foot ulcer associated with type 2 diabetes mellitus Code(s): E11.621 - TYPE 2 DIABETES MELLITUS WITH FOOT ULCER; L97.509 - NON- PRESSURE CHRONIC ULCER OTH PRT UNSP FOOT W UNSP SEVERITY Status: Acute Qualifiers: Diabetic foot ulcer location: midfoot Laterality: left Non-pressure ulcer stage: unspecified non-pressure ulcer stage Qualified Code(s): E11.621 - Type 2 diabetes mellitus with foot ulcer; L97.429 - Non-pressure chronic ulcer of left heel and midfoot with unspecified severity Plan: -Pt presented with LLE diabetic foot wound that has been present for about 10 years. -Pt has been seeing podiatry outpatient and was sent to ER for admission and general surgery consultation. -General surgery recommendations greatly appreciated. Appears plan is for surgical intervention this morning. -Continue local wound care. -Wound culture has grown E. coli. (2) Acute kidney injury superimposed on CKD Code(s): N17.9 - ACUTE KIDNEY FAILURE, UNSPECIFIED; N18.9 - CHRONIC KIDNEY DISEASE, UNSPECIFIED Status: Acute Plan: -Improved and at baseline. (3) Diabetes mellitus type 2, uncontrolled Code(s): E11.65 - TYPE 2 DIABETES MELLITUS WITH HYPERGLYCEMIA Status: Chronic Plan: -Mildly uncontrolled over the last 24 hrs with 2 values above 200. -Will increase insulin and continue to monitor. - Plan Plan: disposition: Pt stable. Continue to monitor blood glucose closely. General surgery recommendations greatly appreciated, surgery planned for this morning. Addendum - Attending - Attending Attestation Date/Time: 12/13/18 8883 I personally evaluated the patient and discussed the management with Dr. Salgado I agree with the History, Examination, Assessment and Plan documented above with any addition or exceptions noted below.
[2018-12-13] MEDS ORDERED: Cefepime 1 GM in Sodium Chloride 0.9% 100 ML IVPB SCH (08:00)
[2018-12-13] MEDS ORDERED: PROPOFOL 60 ML ONE (09:00)
[2018-12-13] MEDS ORDERED: Fentanyl 100 MCG/2 ML VIAL ONE (09:00)
[2018-12-13] MEDS ORDERED: Famotidine/PF 20 mg/2ml Vial ONE (09:00)
[2018-12-13] MEDS ORDERED: Midazolam HCl 2 mg/2 ml Vial ONE (09:00)
[2018-12-13] MEDS ORDERED: Piperacillin/Tazobactam 3.375 GM VIAL ONE (09:02)
[2018-12-13] MEDS ORDERED: Sodium Chloride 0.9% 100 ML ONE (09:03)
[2018-12-13] MEDS: Aspirin Chewable 81 MG TAB PO SCH (09:26)
[2018-12-13] MEDS: Heparin 5,000 UNITS/ML VIAL SC SCH ×3 (09:27→21:16)
[2018-12-13] MEDS: Gabapentin 300 MG CAP PO SCH ×2 (09:27→21:13)
[2018-12-13] MEDS ORDERED: Promethazine HCl 25 MG/ML VIAL IM PRN (09:35)
[2018-12-13] MEDS ORDERED: Ondansetron HCl/PF 4 MG/2 ML Vial IVP PRN (09:35)
[2018-12-13] MEDS ORDERED: Promethazine HCl 25 MG/ML VIAL SLOW IVP PRN (09:35)
[2018-12-13] MEDS ORDERED: traMADol HCl 50 MG TAB PO PRN (10:10)
[2018-12-13] MEDS ORDERED: Acetaminophen 500 MG TAB PO PRN (10:10)
[2018-12-13] MEDS: Insulin Glargine 10 UNITS in Pre-Filled Syringe 1 EACH SC SCH (12:06)
[2018-12-13] MEDS: traMADol HCl 50 MG TAB PO PRN ×2 (12:07→21:13)
--- NOTE | 2018-12-13 12:46 | OP ---
DATE OF PROCEDURE: 12/13/2018 PREOPERATIVE DIAGNOSIS: Diabetic foot infection with neuropathic ulcer, plantar tracking involving the metatarsophalangeal joint of the second and third toes. POSTOPERATIVE DIAGNOSES: Diabetic foot infection with neuropathic ulcer, plantar tracking involving the metatarsophalangeal joint of the second and third toes. PROCEDURE PERFORMED: Amputation of left second and third toes and metatarsals with wound VAC application. ANESTHESIA: TIVA. Good blood supply and noted. Palpable pedal pulses. DESCRIPTION OF PROCEDURE: The patient was taken to the operating room, where under intravenous sedation, left lower extremity was prepared with ChloraPrep and draped in routine fashion. An incision was made such that the second and third toes would be amputated along with the neuropathic ulceration, plantar en bloc. D-type incision was made carried down through the skin and subcutaneous tissue. The metatarsals were transected with a bone cutter. It was resected proximally with a rongeur. Hemostasis was gained with cautery. Wound was irrigated. Good hemostasis noted. Healthy tissue remained. Wound Care Team arrived to place a wound VAC. The patient tolerated the procedure well. Job ID: [id number]
[2018-12-13] MEDS ORDERED: PHENYLEPHRINE-NS 100 MCG/ML 10 ML SYRINGE ONE (13:53)
[2018-12-13] MEDS ORDERED: Lidocaine 1% PF 5 ML VIAL ONE (13:53)
[2018-12-13] MEDS ORDERED: PROPOFOL 200 MG/20 ML VIAL ONE (13:53)
[2018-12-13] MEDS ORDERED: Ondansetron PF 4 MG/2 ML Vial ONE (13:53)
[2018-12-13] MEDS: Piperacillin/Tazobactam 4.5 GM in Sodium Chloride 0.9% 100 ML IVPB SCH ×2 (16:58→21:15)
[2018-12-13] MEDS ORDERED: Vancomycin HCl 1.25 GM in Sodium Chloride 0.9% 250 ML 250 ML IVPB SCH (18:00)
[2018-12-13] MEDS: Lactated Ringer's 1,000 ML IV SCH (19:38)
[2018-12-13] MEDS: HumaLOG 300 UNITS/3 ML VIAL SC PRN (21:15)
[2018-12-14] MEDS: Piperacillin/Tazobactam 4.5 GM in Sodium Chloride 0.9% 100 ML IVPB SCH ×2 (03:02→08:42)
[2018-12-14] MEDS: HumaLOG 300 UNITS/3 ML VIAL SC PRN (06:27)
--- NOTE | 2018-12-14 06:35 | PDOC.FM ---
- Subjective Subjective: NAEO. Patient is POD 1 from left 2nd and 3rd toe amputations. Patient reports good pain control. States he has not gotten up to bear weight on that leg yet. Patient has no complaints or concerns. States he lives at home with his mother and his daughter also helps take care of him. - Objective MAR Reviewed: Yes Vital Signs & Weight: Vital Signs (12 hours) Temp Pulse Resp BP BP Pulse Ox 12/14/18 04:09 98.0 F 78 18 101/67 95 12/14/18 00:07 98.9 F 77 18 118/75 96 12/13/18 21:13 126/75 12/13/18 20:00 98.6 F 77 18 126/75 96 Weight Admit Weight 80.739 kg I&O: 12/12/18 12/13/18 12/14/18 06:59 06:59 06:59 Intake Total 3116 2225 600 Output Total 1725 1875 2805 Balance 1391 350 -2205 Result Diagrams: 12/14/18 06:18 12/14/18 06:18 Phys Exam - Physical Examination Constitutional: NAD HEENT: PERRLA, moist MMs Neck: supple, full ROM Respiratory: clear to auscultation bilateral Cardiovascular: RRR Gastrointestinal: soft, non-tender, no distention Musculoskeletal: no edema, pulses present left foot bandaged, clean, dry intact Neurological: non-focal, moves all 4 limbs Psychiatric: normal affect, A&O x 3 Skin: no rash, normal turgor, cap refill <2 seconds Dx/Plan (1) JUANCHO (acute kidney injury) Code(s): N17.9 - ACUTE KIDNEY FAILURE, UNSPECIFIED Status: Acute (2) Diabetes mellitus Code(s): E11.9 - TYPE 2 DIABETES MELLITUS WITHOUT COMPLICATIONS Status: Acute (3) CHF (congestive heart failure) Code(s): I50.9 - HEART FAILURE, UNSPECIFIED Status: Chronic (4) GERD (gastroesophageal reflux disease) Code(s): K21.9 - GASTRO-ESOPHAGEAL REFLUX DISEASE WITHOUT ESOPHAGITIS Status: Chronic Qualifiers: Esophagitis presence: esophagitis presence not specified Qualified Code(s) : K21.9 - Gastro-esophageal reflux disease without esophagitis (5) Hx of CABG Status: Chronic (6) Hyperlipidemia Code(s): E78.5 - HYPERLIPIDEMIA, UNSPECIFIED Status: Chronic Qualifiers: Hyperlipidemia type: mixed hyperlipidemia Qualified Code(s): E78.2 - Mixed hyperlipidemia (7) Hypertension Code(s): I10 - ESSENTIAL (PRIMARY) HYPERTENSION Status: Chronic Qualifiers: Hypertension type: essential hypertension Qualified Code(s): I10 - Essential (primary) hypertension (8) Systolic congestive heart failure Code(s): I50.20 - UNSPECIFIED SYSTOLIC (CONGESTIVE) HEART FAILURE Status: Chronic - Plan Plan: Diabetic foot ulcer 2/2 DMII Pt presented with LLE diabetic foot wound that has been present for about 10 years. Pt has been seeing podiatry outpatient and was sent to ER for admission and general surgery consultation. - General surgery consulted, appreciate recs. POD 1 from amputation of left 2nd and 3rd toes. Patient reports good pain control. - Continue wound care - Wound culture has grown E. coli. Patient currently on zosyn. Can consider transitioning to oral abx upon discharge (clinda). JUANCHO on CKD - Improved and at baseline DMII, uncontrolled - mild SS, titrate insulin as necessary HFrEF - Echo earlier this month showing EF 40-45% - No signs of fluid overload at this time, will continue to monitor - Continue home meds HTN - Continue home meds, continue to monitor Normocytic anemia - Hgb/Hct 11.9/36.2 - Will continue to monitor, likely due to CKD CAD s/p stent placement - No acute chest pain or symptoms, will continue to monitor COPD - Home meds, duonebs PRN Dispo: likely dc in 1-2 days pending clinical course Addendum - Attending - Attending Attestation Date/Time: 12/14/18 4004 I personally evaluated the patient and discussed the management with Dr. Goodwin. I agree with the History, Examination, Assessment and Plan documented above with any addition or exceptions noted below. Pt with wound vac in place. He is cleared to weightbear as tolerated. Case mgmt has arranged for the wound vac and home health and he will be discharged.
[2018-12-14 06:43] LABS: #Eosinphils 0.3 thou/uL (0.0-0.7); #Lymphocytes 1.7 thou/uL (1.20-3.40); #Monocytes 0.5 thou/uL (0.11-0.59); #Neutrophils 3.6 thou/uL (1.40-6.50); %Basophils 0.8 % (0.0-1.0); %Eosinophils 4.4 % (0.0-10.0); %Lymphocytes 27.9 % (21.0-51.0); %Monocytes 8.3 % (0.0-10.0); %Neutrophils 58.6 % (42.0-75.0); Hemoglobin 11.1 g/dL (14.0-18.0); Mean Corpuscular HGB CONC 31.6 g/dL (32.0-36.0); Mean Corpuscular Hemoglobin 25.5 pg (27.0-31.0); Mean Corpuscular Volume 80.7 fL (78.0-98.0); Mean Platelet Volume 7.2 fL (7.4-10.4); Platelet Count 368 thou/uL (130-400); RBC Distribution Width 14.5 % (11.5-14.5); Red Blood Cell (RBC) Count 4.34 mill/uL (4.70-6.10); White Blood Cell (WBC) Count 6.1 thou/uL (4.8-10.8)
[2018-12-14 06:57] LABS: Anion Gap 12 mmol/L (10-20); BUN (Urea Nitrogen) 21 mg/dL (8.4-25.7); Calc. Creatinine Clearance 0 mL/min (70-130); Calcium 9.4 mg/dL (7.8-10.44); Carbon Dioxide 23 mmol/L (22-29); Chloride 103 mmol/L (98-107); Estimated GFR-MDRD 34; Glucose 172 mg/dL (70-105); Potassium 4.7 mmol/L (3.5-5.1); Sodium 133 mmol/L (136-145)
[2018-12-14] MEDS: Gabapentin 300 MG CAP PO SCH (08:40)
[2018-12-14] MEDS: Aspirin Chewable 81 MG TAB PO SCH (08:40)
[2018-12-14] MEDS: Carvedilol 6.25 MG TAB PO SCH (08:41)
[2018-12-14] MEDS: Insulin Glargine 10 UNITS in Pre-Filled Syringe 1 EACH SC SCH (08:41)
[2018-12-14] MEDS: Heparin 5,000 UNITS/ML VIAL SC SCH ×2 (08:41→14:26)
[2018-12-14] MEDS: traMADol HCl 50 MG TAB PO PRN ×2 (08:43→14:24)
[2018-12-14 09:10] VITALS: BP 121/75; TEMP 97.9
[2018-12-14] MEDS ORDERED: Cephalexin 250 MG CAP PO SCH (12:00)
--- NOTE | 2018-12-14 13:17 | PRG ---
DATE OF SERVICE: 12/14/2018 Samuel Durham is doing well today. He is having very little pain. He is status post amputation of second and third toes. He had good bleeding at the time of surgery. Cultures noted. Wound VAC is in place. He can weightbear as tolerated using a postoperative shoe when out of bed. He can follow up in my office in 2 to 3 weeks. He can have his wound VAC change Mondays and in outpatient wound care clinic. At this point, I will see him as needed. He is ready for discharge when his outpatient wound VAC is arranged. Job ID: [id number]
--- NOTE | 2018-12-15 02:49 | DIS ---
DATE OF ADMISSION: 12/10/2018 DATE OF DISCHARGE: 12/14/2018 RESIDENT: Nelda Goodwin MD ADMITTING ATTENDING: Rica Isaacs MD DISCHARGE ATTENDING: Zayra Uribe MD CONSULTS: General Surgery, Wound Care, Case Management, Physical Therapy. PROCEDURES: On 12/13/2018, amputation of left second and third toes metatarsals with wound VAC application. PRIMARY DIAGNOSES: Diabetic foot ulcer secondary to uncontrolled diabetes type 2, acute kidney injury on chronic kidney disease. SECONDARY DIAGNOSES: Heart failure with preserved ejection fraction, hypertension, normocytic anemia, coronary artery disease status post stent placement, and chronic obstructive pulmonary disease. DISCHARGE MEDICATIONS: 1. Tylenol 1000 mg oral every 6 hours as needed. 2. Coreg 6.25 mg oral twice daily. 3. Keflex 1000 mg oral every 6 hours for the next 7 days. 4. Ultram 50 mg oral every 4 to 6 hours as needed. 5. Gabapentin 600 mg oral twice daily. 6. Crestor 20 mg oral at bedtime. 7. Nitroglycerin 0.4 mg sublingual every 5 minutes as needed. 8. Levemir 55 units subcutaneous daily. 9. Aspirin 81 mg oral daily. 10. Fenofibrate one tablet oral at bedtime. 11. Glipizide 15 mg oral daily. 12. Tylenol No. 3 one to two tablespoon oral every 4 hours as needed. DISCONTINUED MEDICATIONS: 1. Coreg 3.125 mg oral twice daily. 2. Sulfamethoxazole/trimethoprim 1 tablet oral twice daily. HISTORY OF PRESENT ILLNESS/HOSPITAL COURSE: This is a 53-year-old male, who presented to the ER with chief complaint of worsening ulcer on his left foot. The patient has a PMH of IDDM2, HTN, [place] x2 s/p CABG, and COPD. The patient has been seeing a turkey egg gatherer for the wound on his fast. The ulcer began about 1 yr ago and has worsened over the last few days with increased swelling, pain and redness. The patient stated he was unable to bear weight on the LLE due to the pain. Stated pain was 10/10. Patient was started on vanc in the ER and given 1 L NS. X-ray of L foot showing no osteomyelitis. Patient had and elevated CRP and normal ESR and LA. Arterial dopplers normal. Procal was 0.13. Patient was admitted to the medical floor for antibiotics and general surgery consult. Continued on vanc and zosyn. Wound care was also consulted. Patient had amputation on 12/13 w/ Dr. Meneses. Patient tolerated procedure well. Patient was transitioned to oral abx - keflex to complete a week course. Wound culture grew E coli and Enterococcus. Patient was seen by PT. Advised to bear weight as tolerated. Patient's procal downtrended. Patient also found to have an JUANCHO on CKD stage 4 on admission. Patient was given gentle fluids with improvement in his kidney function. The patient's diabetes was managed with levemir and dosage increased - to be continued at home. Patient approved for w/ [facility] for wound care and PT. DISPOSITION: Stable. DISCHARGE INSTRUCTIONS: 1. Location: Home with Home Health. 2. Diet: Consistent carbohydrate and heart healthy. 3. Activity: Weightbearing as tolerated. 4. Followup: Follow up with PCP within 1 week and followup with Wound Care/Dr. Meneses within 2 to 3 weeks. Job ID: [id number] MTDD
== END 2018-12-14 17:50 | disposition home health service (06) | DRG 617 ==
LOC: ERS 13:52 → T4-B 17:02
PROVIDERS: ADMIT Family Medicine; ATTEND Family Medicine
PROC: 0Y6S0Z0 Detachment at Left 2nd Toe, Complete, Open Approach (ICD-10-PCS; principal; 2018-12-13)
PROC: 0Y6U0Z0 Detachment at Left 3rd Toe, Complete, Open Approach (ICD-10-PCS; 2018-12-13)
DX: E11.621 Type 2 diabetes mellitus with foot ulcer (principal); I50.20 Unspecified systolic (congestive) heart failure; I13.0 Hypertensive heart and chronic kidney disease with heart failure and stage 1 through stage 4 chronic kidney disease, or unspecified chronic kidney disease; L97.429 Non-pressure chronic ulcer of left heel and midfoot with unspecified severity; N17.9 Acute kidney failure, unspecified; J44.9 Chronic obstructive pulmonary disease, unspecified; K21.9 Gastro-esophageal reflux disease without esophagitis; E78.5 Hyperlipidemia, unspecified; E11.22 Type 2 diabetes mellitus with diabetic chronic kidney disease; D63.1 Anemia in chronic kidney disease; N18.4 Chronic kidney disease, stage 4 (severe); Z96.652 Presence of left artificial knee joint; I25.2 Old myocardial infarction; Z95.1 Presence of aortocoronary bypass graft; Z95.0 Presence of cardiac pacemaker; Z90.49 Acquired absence of other specified parts of digestive tract; Z87.891 Personal history of nicotine dependence
CPT/HCPCS: 36415; 36416; 80048; 80053; 80202; 83605; 84145; 85025; 85652; 86140; 87070; 87077; 87186; 87205; 88305; 88311; 90471; 90732; 93005; 93010; 93923; 96365; 96366; G0009; J1644; J1815; J2001; J2250; J2405; J2543; J2704; J3010; J3370; J3490; J7050; S0028

== ENCOUNTER 2019-02-24 14:25 | Outpatient (CLI) | payer MEDICARE, MEDICAID ==
--- NOTE | 2019-02-24 15:11 | ULT ---
EXAM: Bilateral lower extremity venous duplex ultrasound with color and spectral Doppler imaging: HISTORY: Bilateral leg edema COMPARISON: None FINDINGS: Exam performed from the groin to the ankle including the visualized greater saphenous, common femoral , superficial femoral, profunda femoral, popliteal, trifurcation, and posterior tibial veins. There is phasic flow with normal compressibility and normal augmentation at all examined levels. No evidence for intraluminal thrombus. IMPRESSION: No evidence for deep venous thrombosis.
== END 2019-02-24 14:26 | disposition home or self-care (01) ==
LOC: BICULT 14:25
PROVIDERS: ATTEND Hospitalist
DX: M79.89 Other specified soft tissue disorders (principal)
CPT/HCPCS: 93970

== ENCOUNTER 2019-03-27 23:08 | Observation (INO) | payer MEDICARE, MEDICAID ==
--- NOTE | 2019-03-27 23:41 | RAD ---
PORTABLE CHEST: 03/27/19 HISTORY: Chest pain. Lung medeiros are clear. Vasculature normal. Heart size within normal range. Postop sternotomy change. AICD leads again noted. IMPRESSION: No acute process. POS: OFF
[2019-03-27 23:42] LABS: Base Excess-Venous -0.8 mmol/L (-2.0 to 3.0); Bicarbonate (HCO3v) 24.6 mmol/L (22.0-28.0); CO2 Tension (PvCO2) 42.7 mmHg (40.0-50.0); Calcium, Ionized 1.15 mmol/L (See Comments:); Chloride 101 mmol/L (98-107); Hemoglobin - Calc 12.5 g/dL (14.0-18.0); Potassium 4.9 mmol/L (3.5-5.1); Sodium 134 mmol/L (138-145); T. Carbon Dioxide 25.9 mmol/L (22.0-28.0); vO2 Saturation-calc 54.9 % (60.0-85.0)
[2019-03-27 23:42] LABS: #Basophils 0.1 thou/uL (0.0-0.2); #Eosinphils 0.2 thou/uL (0.0-0.7); #Lymphocytes 2.2 thou/uL (1.20-3.40); #Monocytes 0.4 thou/uL (0.11-0.59); #Neutrophils 2.1 thou/uL (1.40-6.50); %Basophils 1.1 % (0.0-1.0); %Eosinophils 3.2 % (0.0-10.0); %Lymphocytes 44.9 % (21.0-51.0); %Monocytes 7.7 % (0.0-10.0); Mean Corpuscular HGB CONC 35.3 g/dL (32.0-36.0); Mean Corpuscular Hemoglobin 28.1 pg (27.0-31.0); Mean Corpuscular Volume 79.5 fL (78.0-98.0); Mean Platelet Volume 8.4 fL (7.4-10.4); Platelet Count 210 thou/uL (130-400); RBC Distribution Width 13.3 % (11.5-14.5); Red Blood Cell (RBC) Count 4.27 mill/uL (4.70-6.10)
[2019-03-27] MEDS ORDERED: Insulin Regular 300 UNITS/3 ML VIAL ONE (23:42)
[2019-03-27 23:57] LABS: ALT (SGPT) 20 U/L (8-55); AST (SGOT) 16 U/L (5-34); Albumin 3.8 g/dL (3.5-5.0); Alkaline Phosphatase 36 U/L (40-110); Anion Gap 13 mmol/L (10-20); BUN (Urea Nitrogen) 34 mg/dL (8.4-25.7); Bilirubin, Total 0.3 mg/dL (0.2-1.2); CK (CPK) 158 U/L (30-200); Calc. Creatinine Clearance 0 mL/min (70-130); Calcium 8.6 mg/dL (7.8-10.44); Carbon Dioxide 23 mmol/L (22-29); Chloride 99 mmol/L (98-107); Estimated GFR-MDRD 26; Globulin 3.2 g/dL (2.4-3.5); Glucose 539 mg/dL (70-105); Lipase 74 U/L (8-78); Potassium 4.7 mmol/L (3.5-5.1); Sodium 130 mmol/L (136-145)
[2019-03-28] MEDS ORDERED: Aspirin 325 MG TAB ONE (00:15)
[2019-03-28 00:18] LABS: CKMB 2.2 ng/mL (0-6.6)
--- NOTE | 2019-03-28 01:04 | PDOC.FPRHP ---
- History of Present Illness Chief Complaint: Hyperglycemia, Chest pain History of Present Illness: Patient is a 53 yo male with PMHx of CAD, COPD, & T2DM who presents to [facility] ED via EMS for hyperglycemia and chest pain. Patient states that since he woke up this morning he has had pain in center of his chest described as tight and squeezing, present constantly. He has home nitro Rx but did not take any today. Pain radiates into left shoulder and down his arm to around his elbow. Denies nausea/vomiting, heartburn, indigestion, SOB, palpitations, dizziness. Patient states that around lunchtime he started to feel sweaty and shaky. He tried checking his sugar but his machine read "error". He continued to have these symptoms throughout afternoon so he eventually decided to call the EMS. In the EMS his blood glucose was 500, repeat in the ED was 496. Patient states he is compliant with all his medications, when he checks his fasting sugars in the morning they have been in 210s. He was seen at [facility] by Dr. Kohler on 03/25/2019 where his Levemir was adjusted up to 55 units in AM, 10 units in evening. His last A1C on 03/05/19 was 12.6%. Last hospitalization was in November 2018, had an echo done at that time which showed EF 40-45%. ED Course: Given IV NS 1L bolus, Nitro patch, ASA 325 mg, and IV Insulin 10 units. CXR neg for acute process. - Allergies/Adverse Reactions Allergies Allergy/AdvReac Type Severity Reaction Status Date / Time No Known Drug Allergies Allergy Verified 03/28/19 01:59 - Home Medications Medication Instructions Recorded Confirmed Type Gabapentin 600 mg PO BID 12/02/13 03/28/19 History Rosuvastatin [Crestor] 20 mg PO HS #0 tab 12/29/14 03/28/19 Rx Nitroglycerin 0.4 mg SL Q5MIN PRN 03/02/15 03/28/19 History Insulin Detemir [Levemir] 55 units SC DAILY 11/27/18 03/28/19 History Aspirin Chewable [Aspirin Chewable 81 mg PO DAILY tab 11/28/18 03/28/19 Rx Tablet] Fenofibrate Nanocrystallized 1 tab PO HS 12/11/18 03/28/19 History [Fenofibrate] Carvedilol [Coreg] 3.125 mg PO BID 03/28/19 03/28/19 History Icosapent Ethyl [Vascepa] 2 gm PO DAILY 03/28/19 03/28/19 History Insulin Detemir [Levemir] 10 units SC HS 03/28/19 03/28/19 History - History PMHx: HTN, CAD, Anemia, Neuropathy, systolic CHF, CKD-3, HLD, T2DM, COPD PSHx: AICD placed 2013, CABG-4 vessel, Left knee surgery, appendectomy, multiple toes removed by Gideon in November 2018 FHx: multiple family members with T2DM Social: hx of smoking 4 ppd for 30 years, quit 4 years ago. Denies EtOH use. - Review of Systems General: denies: fever/chills, fatigue Eyes: denies: vision changes ENT: denies: nasal congestion, rhinorrhea Respiratory: reports: shortness of breath. denies: cough, congestion Cardiovascular: reports: chest pain. denies: palpitation, edema Gastrointestinal: denies: nausea, vomiting, abdominal pain Genitourinary: denies: dysuria Skin: denies: rashes, lesions Musculoskeletal: denies: pain, tenderness Neurological: reports: numbness, weakness. denies: syncope - Vital signs BP: 135/82 HR: 84 RR: 22 Tmax: 98.6F Pox: 100% on RA Wt: 68 kg - Physical Exam Constitutional: NAD, awake, alert and oriented, well developed -Constitutional: shaking on exam HEENT: normocephalic and atraumatic, EOMI, conjunctiva clear, no scleral icterus , grossly normal vision, grossly normal hearing, normal nasal mucosa, MMM, oropharynx clear Neck: supple, no JVD Chest: no-tender to palpation Heart: RRR, normal S1/S2, no murmurs/rubs/gallops, pulses present, no edema Lungs: CTAB, no respiratory distress, no rales/rhonchi, no wheezing Abdomen: soft, bowel sounds present Musculoskeletal: normal tone -Musculoskeletal: missing toes on left foot Neurological: no focal deficit Skin: no rash/lesions, good turgor Heme/Lymphatic: no unusual bruising or bleeding Psychiatric: normal mood and affect, intact recent and remote memory FMR H&P: Results - Labs Result Diagrams: 03/28/19 11:24 03/28/19 11:24 Lab results: WBC 5.0 thou/uL (4.8-10.8) 03/27/19 23:34 Hgb 12.0 g/dL (14.0-18.0) L 03/27/19 23:34 Hct 34.0 % (42.0-52.0) L 03/27/19 23:34 MCV 79.5 fL (78.0-98.0) 03/27/19 23:34 Plt Count 210 thou/uL (130-400) 03/27/19 23:34 Neutrophils % 43.0 % (42.0-75.0) 03/27/19 23:34 VBG pCO2 42.7 mmHg (40.0-50.0) 03/27/19 23:41 VBG pO2 29.9 mmHg (35.0-45.0) L 03/27/19 23:41 Sodium 130 mmol/L (136-145) L 03/27/19 23:34 Potassium 4.7 mmol/L (3.5-5.1) 03/27/19 23:34 Chloride 99 mmol/L (98-107) 03/27/19 23:34 Carbon Dioxide 23 mmol/L (22-29) 03/27/19 23:34 BUN 34 mg/dL (8.4-25.7) H 03/27/19 23:34 Creatinine 2.62 mg/dL (0.7-1.3) H 03/27/19 23:34 Glucose 539 mg/dL (70-105) H 03/27/19 23:34 Calcium 8.6 mg/dL (7.8-10.44) 03/27/19 23:34 Total Bilirubin 0.3 mg/dL (0.2-1.2) 03/27/19 23:34 AST 16 U/L (5-34) 03/27/19 23:34 ALT 20 U/L (8-55) 03/27/19 23:34 Alkaline Phosphatase 36 U/L (40-110) L 03/27/19 23:34 Creatine Kinase 158 U/L (30-200) 03/27/19 23:34 CK-MB (CK-2) 2.2 ng/mL (0-6.6) 03/27/19 23:33 Serum Total Protein 7.0 g/dL (6.0-8.3) 03/27/19 23:34 Albumin 3.8 g/dL (3.5-5.0) 03/27/19 23:34 Lipase 74 U/L (8-78) 03/27/19 23:34 FMR H&P: A/P - Problem List (1) Elevated troponin Status: Acute Code(s): R79.89 - OTHER SPECIFIED ABNORMAL FINDINGS OF BLOOD CHEMISTRY (2) Chest pain Status: Acute Priority: High Code(s): R07.9 - CHEST PAIN, UNSPECIFIED (3) Hyperglycemia Status: Acute Code(s): R73.9 - HYPERGLYCEMIA, UNSPECIFIED (4) Chronic kidney disease, stage 3 Status: Chronic Comment: Avoid nephrotoxic meds and limit contrast exposure (5) Diabetes mellitus type 2, uncontrolled Status: Chronic Code(s): E11.65 - TYPE 2 DIABETES MELLITUS WITH HYPERGLYCEMIA Qualifiers: Glycemic state: with hyperglycemia Qualified Code(s): E11.65 - Type 2 diabetes mellitus with hyperglycemia (6) Hypertension Status: Chronic Code(s): I10 - ESSENTIAL (PRIMARY) HYPERTENSION Qualifiers: Hypertension type: essential hypertension Qualified Code(s): I10 - Essential (primary) hypertension (7) Systolic congestive heart failure Status: Chronic Code(s): I50.20 - UNSPECIFIED SYSTOLIC (CONGESTIVE) HEART FAILURE Qualifiers: Heart failure chronicity: chronic Qualified Code(s): I50.22 - Chronic systolic (congestive) heart failure - Plan 53 yo male with chest pain and hyperglycemia admitted to observation on telemetry: #Typical chest pain - Initial troponin 0.033, trending troponin - Heart score 4 - Recent stress test 11/2018 with no reversible ischemia, consider Cards consult in AM if CP continues - Recent echo 11/2018 with EF 40-45% - Continue home meds: Nitro PRN, ASA 81 mg daily - Risk stratification: TSH, FLP, Mg, and Phos pending - EKG at baseline - Repeat EKG & troponin if patient has active chest pain that is not resolved with nitro #Hyperglycemia, uncontrolled DM type II - recent A1C 12.6% (03/05/19) - given IV Insulin 10 units in ER - neg beta hydroxybutyrate, blood gases normal - Moderate SSI - Continue home levemir 55 units in morning, 10 units in evening - accuchecks ACHS, adjust insulin as needed during stay #CKD stage III - Cr 2.6 (near baseline) - Check CMP in AM - Adjust medications for renal function, CrCl = 31 (may need to be recalculated with more accurate weight) #COPD - Duonebs q2h PRN #Peripheral neuropathy - Continue home med: Gabapentin #HTN - Continue home meds: Carvedilol #CAD s/p 4V-CABG; HLD - Lipid panel in AM - Continue home meds: Rosuvastatin, Fenofibrate, Vascepa, ASA 81 - See plan as above for typical ches pain #Normocytic anemia, chronic - Hgb 12, near baseline #Systolic CHF - Echo in November 2018 showed EF 40-45% - s/p AICD placed in 2013 - Daily weights - Strict I&O's Diet: NPO for now, consider if need stress test in AM VTE: SCDs, Lovenox 30 Code Status: FULL Dispo: Admitted to observation on telemetry. Will resume home meds including Levemir 55 units in AM, 10 units in evening, plan to adjust further as needed during hospital stay. Anticipate LOS <48 hours. FMR H&P: Upper Level - Pertinent history 53 year old male with PMH significant for CAD s/p 4V CABG, HFrEF s/p AICD placement, DM type II uncontrolled, HTN, and HLD presents with elevated blood glucose and chest pain with onset earlier today. Patient describes the chest pain as chest tightness which radiates to the left arm. The chest pain is located in the center of chest. He denies associated shortness of breath. He does describe diaphoresis which he has had all day. Patient endorses compliance with medications. He states he checks BG every morning it reports it is in the 200's. He was seen in clinic 2 days ago and changes were made to insulin regimen to include addition of 10U levemir in the evenings. Patients recent HgA1c in 02/2019 was 12.6%. He also was recently admitted for infection of toe which required amputation. At hospitalization in 11/2018, patient had echo done which showed EF 40-45%. A stress test was also done at that time which showed no reversible ischemia. Patient has not attempted nitro for chest pain today. He states he "forgot about it". Patient endorses productive cough over the last several days. He does have a history of COPD. - Pertinent findings General: A&O x3. No acute distress. HEENT: EOMI. PERRL. MMM. Resp: CTA bilaterally. No acute respiratory distress. Card: RRR. Distant heart sounds. No appreciable murmur. Ext: No cyanosis or edema. Abd: Non-tender to palpation, Bowel sounds present, no distention. - Plan Date/Time: 03/28/19 0104 ILivia, have evaluated this patient and agree with findings/plan as outlined by manager of international resident. Pertinent changes/additions are listed here. Typical chest pain - Initial troponin 0.033, trending troponin - Heart score 4 - Recent stress test 11/2018 with no reversible ischemia - Recent echo 11/2018 with EF 40-45% - Nitro PRN - ASA daily - Lovenox DVT ppx - Hx 4V CABG and HFrEF with AICD - Consider cards consult in AM vs repeat stress test - NPO at midnight - Risk stratification: TSH, FLP, Mg, and P pending - HgA1c 02/2019 12.6% - EKG NSR - Repeat EKG, troponin if patient has active chest pain not resolved with nitro DM type II uncontrolled with hyperglycemia - BG in 500's, s/p 10U regular insulin - No evidence of DKA (neg beta hydroxybutyrate, normal VBG) - Moderate SSI - Hyperglycemia protocol - CC diet, NPO 00:00 - Continue home levemir, adjust as necessary during hospital stay - No evidence of infection, likely non-compliant/ inadequately treated - FLP and TSH pending - HgA1c 02/2019 12.6% CKD stage III - Cr appears stable - Continue to monitor - Adjust medications for renal function HLD - Repeat FLP in AM - Continue statin and fibrate COPD - Not currently on medications - Will add duonebs PRN Peripheral neuropathy - Continue gabapentin HTN - Continue home medications CAD s/p CABG - Continue home medications - See plan as above for typical ches pain Normocytic anemia - Appears at baseline - Uncertain if this has been worked up previously - If no previous workup, consider iron studies HFrEF - EF 40-45% 11/2018 - Fluid restriction - s/p AICD - Daily weights - Strict I&O's DVT PPX: Lovenox Code Status: Full Dispo: Obs on telemetry. Anticipate LOS <48 hours. Addendum - Attending - Attending Attestation Date/Time: 03/28/19 2665 I personally evaluated the patient and discussed the management with Dr. Pa. I agree with the History, Examination, Assessment and Plan documented above with any addition or exceptions noted below. The patient presented overnight with chest pain and hyperglycemia. Blood sugars are now controlled with insulin. He tells me his chest pain is worse with inspiration and he is tender to palpation of the left anterior chest. Enzymes down-trended. Pt has had a recent stress test.
[2019-03-28] MEDS ORDERED: Nitroglycerin 2% Ointment 1 INCH/1 GM Packet ONE (01:15)
[2019-03-28 03:11] LABS: Troponin I Less than 0.010 ng/mL (< 0.028)
[2019-03-28] MEDS ORDERED: Dextrose 50% Abboject 50 ML SYRINGE IVP PRN (03:45)
[2019-03-28] MEDS ORDERED: Insulin Regular 300 UNITS/3 ML VIAL SC PRN (03:45)
[2019-03-28] MEDS ORDERED: Dextrose 5% in Water 1,000 ML IV PRN ×2 (03:45→04:13)
[2019-03-28] MEDS ORDERED: Acetaminophen 325 MG TAB PO PRN (04:13)
[2019-03-28] MEDS ORDERED: HumaLOG 300 UNITS/3 ML VIAL SC PRN (04:13)
[2019-03-28] MEDS ORDERED: Ondansetron ODT 4 MG TAB PO PRN (04:13)
[2019-03-28] MEDS ORDERED: Nitroglycerin 0.4 MG TAB (25 Tab Bottle) SL PRN (04:13)
[2019-03-28] MEDS ORDERED: Senokot S 8.6-50 MG TAB PO PRN (04:13)
[2019-03-28] MEDS ORDERED: Dextrose 50% Abboject 50 ML SYRINGE SLOW IVP PRN (04:13)
[2019-03-28] MEDS ORDERED: Acetaminophen 650 MG Suppository PR PRN (04:13)
[2019-03-28] MEDS ORDERED: Calcium Carbonate 500 MG ChewTAB PO PRN (04:13)
[2019-03-28] MEDS ORDERED: Ondansetron PF 4 MG/2 ML Vial IVP PRN (04:13)
[2019-03-28 04:41] VITALS: BMI 26.9
[2019-03-28 05:11] LABS: Amphetamine Not Detected (NotDetected); Barbiturates Screen Not Detected (NotDetected); Benzodiazepine Screen Not Detected (NotDetected); Cocaine Metabolite Screen Not Detected (NotDetected); Medtox Control Line Valid? VALID (VALID); Medtox Reader # READER 4; Methadone Not Detected (NotDetected); Methamphetamine Not Detected (NotDetected); Opiate Screen Not Detected (NotDetected); Oxycodone Screen Not Detected (NotDetected); Phencyclidine (PCP) Not Detected (NotDetected); THC/Cannabinoid Screen Not Detected (NotDetected); Tricyclic Screen Not Detected (NotDetected)
--- NOTE | 2019-03-28 06:14 | PDOC.FM ---
- Subjective Subjective: Mr. Durham was resting comfortably in his hospital bed at the time of evaluation. He denied any overnight events, stating that his chest pain had resolved. He went on to deny any episodes of SOB, ABD pain, N/V or diarrhea. - Objective Vital Signs & Weight: Vital Signs (12 hours) Temp Pulse Resp BP Pulse Ox 03/28/19 03:54 97.8 F 73 12 131/78 100 Weight Weight 80.3 kg I&O: 03/26/19 03/27/19 03/28/19 06:59 06:59 06:59 Intake Total 2000 Output Total 1700 Balance 300 Result Diagrams: 03/28/19 11:24 03/28/19 11:24 Phys Exam - Physical Examination Constitutional: NAD HEENT: PERRLA, moist MMs, sclera anicteric, oral pharynx no lesions Neck: no nodes, supple, full ROM Respiratory: no wheezing, no rales, no rhonchi, clear to auscultation bilateral Cardiovascular: RRR, no significant murmur, no rub Gastrointestinal: soft, non-tender, no distention, positive bowel sounds Musculoskeletal: no edema, pulses present Neurological: non-focal, moves all 4 limbs Lymphatic: no nodes Psychiatric: normal affect Skin: no rash Dx/Plan - Plan Plan: 1. Typical Chest Pain -Hx 4V CABG and HFrEF with AICD -Poorly controlled DM2 -EKG: NSR -Initial Troponin 0.033, < 0.01, 0.016 -Additional Troponin draw pending -Heart Score: 4 -Stress Test (12/09): No Reversible Ischemia -Echo (12/09): EF 40-45% -Nitro PRN, ASA daily -Risk Stratification required - TSH, Lipid Panel, Mg, and Phos pending -NPO at 0001 if repeat Stress Test required 2. DM2, Poorly Controlled -Glucose: 539 on presentation -HgA1c (03/11): 12.6% -B-Hydroxybutyrate: Negative / VBG: WNL - DKA Unlikely -Moderate SSI w/ Hyperglycemia Protocol -CC Diet -Continue home meds adjust as necessary during hospital stay 3. CKD stage III -Cr: 2.6 -Continue to monitor -Adjust medications for renal function 4. HLD -Lipid Panel: Pending -Continue home meds 5. COPD -Not currently on medications -Duonebs PRN 6. Peripheral Neuropathy -Continue home meds 7. HTN -BP: 131/78 on 03/28 -Continue home meds 8. CAD s/p CABG -Continue home meds 9. Normocytic Anemia -Appears at baseline -Uncertain if this has been worked up previously -If no previous workup, consider iron studies 10. HFrEF -Echo (12/09): EF 40-45% -Fluid restriction -s/p AICD -Daily weights -Strict I&O's DVT PPx: Lovenox Code Status: Full Dispo: Patient currently on Telemetry Floor for Observation. ACS appears unlikely at this time. Continue home DM2 meds and utilize MSSI to adequately control hyperglycemia. Expected LOS < 12H Addendum - Attending - Attending Attestation Date/Time: 03/28/19 7721 I personally evaluated the patient and discussed the management with Dr. Chung. I agree with the History, Examination, Assessment and Plan documented above with any addition or exceptions noted below. Pt's sugars are controlled. CP is reproducible on palpation. Cardiac enzymes back to normal. Can d/c home.
[2019-03-28 06:52] LABS: Troponin I 0.016 ng/mL (< 0.028)
[2019-03-28] MEDS ORDERED: INSULIN DETEMIR 55 UNIT SC SCH (09:00)
[2019-03-28] MEDS ORDERED: Gabapentin 300 MG CAP PO SCH (09:00)
[2019-03-28] MEDS ORDERED: Insulin Glargine 55 UNITS in Pre-Filled Syringe 1 EACH SC SCH (09:00)
[2019-03-28] MEDS ORDERED: Aspirin Chewable 81 MG TAB PO SCH (09:00)
[2019-03-28] MEDS ORDERED: Carvedilol 3.125 MG TAB PO SCH (09:00)
[2019-03-28] MEDS ORDERED: Enoxaparin Sodium 30 MG/0.3 ML SYRINGE SC SCH (09:00)
[2019-03-28] MEDS ORDERED: Aspirin 325 MG TAB PO SCH (09:00)
[2019-03-28] MEDS ORDERED: Icosapent Ethyl [Vascepa] 2 GM PO SCH (09:00)
[2019-03-28 10:02] LABS: Troponin I 0.014 ng/mL (< 0.028)
[2019-03-28 11:38] LABS: #Basophils 0.1 thou/uL (0.0-0.2); #Eosinphils 0.2 thou/uL (0.0-0.7); #Lymphocytes 1.9 thou/uL (1.20-3.40); #Monocytes 0.3 thou/uL (0.11-0.59); #Neutrophils 2.7 thou/uL (1.40-6.50); %Basophils 1.3 % (0.0-1.0); %Eosinophils 3.9 % (0.0-10.0); %Lymphocytes 37.2 % (21.0-51.0); %Monocytes 5.5 % (0.0-10.0); %Neutrophils 52.1 % (42.0-75.0); Hemoglobin 12.7 g/dL (14.0-18.0); Mean Corpuscular HGB CONC 34.6 g/dL (32.0-36.0); Mean Corpuscular Hemoglobin 27.5 pg (27.0-31.0); Mean Corpuscular Volume 79.3 fL (78.0-98.0); Mean Platelet Volume 8.2 fL (7.4-10.4); Platelet Count 220 thou/uL (130-400); RBC Distribution Width 13.5 % (11.5-14.5); Red Blood Cell (RBC) Count 4.61 mill/uL (4.70-6.10); White Blood Cell (WBC) Count 5.2 thou/uL (4.8-10.8)
[2019-03-28 11:56] LABS: Phosphorus 2.4 mg/dL (2.3-4.7)
[2019-03-28 12:02] LABS: ALT (SGPT) 29 U/L (8-55); AST (SGOT) 31 U/L (5-34); Albumin 3.8 g/dL (3.5-5.0); Alkaline Phosphatase 32 U/L (40-110); Anion Gap 10 mmol/L (10-20); BUN (Urea Nitrogen) 24 mg/dL (8.4-25.7); Bilirubin, Total 0.3 mg/dL (0.2-1.2); Calc. Creatinine Clearance 46 mL/min (70-130); Calcium 9.1 mg/dL (7.8-10.44); Carbon Dioxide 25 mmol/L (22-29); Cardiac Risk 4.8 (Less than 4.5); Chloride 105 mmol/L (98-107); Cholesterol 120 mg/dl (< 200 Desired); Estimated GFR-MDRD 34; Globulin 3.2 g/dL (2.4-3.5); Glucose 165 mg/dL (70-105); HDL Cholesterol 25 mg/dL (>60 Neg Risk); LDL Cholesterol, Calculated 57 mg/dL; Magnesium 2.1 mg/dL (1.6-2.6); Potassium 5.4 mmol/L (3.5-5.1); Sodium 135 mmol/L (136-145); Triglycerides 191 mg/dL (Less than 150)
[2019-03-28 12:20] VITALS: BP 121/77; TEMP 97.9
[2019-03-28] MEDS ORDERED: Rosuvastatin 20 MG TAB PO SCH (21:00)
[2019-03-28] MEDS ORDERED: Insulin Glargine 10 UNITS in Pre-Filled Syringe 1 EACH SC SCH (21:00)
[2019-03-28] MEDS ORDERED: Non-Formulary Item 1 EACH (Insulin Detemir [Levemir] 10 UNITS) SC SCH (21:00)
[2019-03-28] MEDS ORDERED: Fenofibrate Nanocrystallized 145 MG TAB PO SCH (21:00)
--- NOTE | 2019-03-29 15:21 | DIS ---
DATE OF ADMISSION: 03/28/2019 DATE OF DISCHARGE: 03/28/2019 RESIDENT: Juan Pablo Chung MD ADMITTING ATTENDING: Zayra Uribe MD CONSULTS: None. PROCEDURES PERFORMED: Chest x-ray with impression of no acute process. EKG with interpretation of first-degree AV block, otherwise normal. PRIMARY DIAGNOSIS: Hyperglycemia. SECONDARY DIAGNOSES: Chest pain, hypertension, coronary artery bypass graft, diabetes, congestive heart failure, hyperlipidemia, chronic kidney disease, gastroesophageal reflux disease, hyperkalemia, and cocaine abuse. DISCHARGE MEDICATIONS: None. DISCONTINUED MEDICATIONS: 1. Moderate intensity sliding scale insulin. 2. Acetaminophen 650 mg. 3. Calcium carbonate 1000 mg. 4. Ipratropium/albuterol sulfate 3 mL. 5. Nitroglycerin 0.4 mg. 6. Zofran 4 mg. 7. Senokot two tabs. 8. Aspirin 325 mg. 9. Carvedilol 3.125 mg. 10. Lovenox 30 mg. 11. Gabapentin 600 mg. 12. Rosuvastatin 20 mg. HISTORY OF PRESENT ILLNESS/HOSPITAL COURSE: Mr. Durham is a 53-year-old male with past medical history significant for coronary artery disease, COPD, and type 2 diabetes that is poorly controlled, who presented to [facility] ED via EMS for hyperglycemia and chest pain. The patient stated that he woke up on the morning of 03/28/2019 and had pain in his center of his chest, described as tightness and squeezing and present constantly. He has home nitroglycerin prescription, but did not take any. The pain radiated to his left shoulder and down his arm to around his elbow. The patient denies nausea, vomiting, heart burn, indigestion, shortness of breath, palpitations, or dizziness. The patient states throughout the lunch time, he start to feel sweaty and shaky. He tried checking his sugar, but his machine read error. He continued to have these symptoms throughout the afternoon, so he eventually decided to call the EMS. In the EMS, his blood glucose was measured at over 500. Repeat in the ED reported a value of 496. The patient states he is compliant with all of his medications and he checks his fasting sugars in the morning. They have always been in the 210s. He was seen by [facility] and Physician, Dr. Yesica Kohler, on 03/25/2019, where his Levemir was adjusted up to 55 units in the morning, 10 units in the evening. His last hemoglobin A1c on 03/05/2019 was 12.6. His last hospitalization was in November of 2018. He had an echo done at that time, which showed an ejection fraction of 40% to 45%. In the ER, he was given 1 L of normal saline bolus, nitroglycerin patch, 325 mg aspirin and IV insulin at 10 units. Chest x-ray at that time revealed no acute processes. Hospital stay was unremarkable and following placement on a moderate sliding scale intensity insulin regimen, he had POC glucose readings that were within normal limits. His chest pain was not reproducible throughout the duration of his hospital stay. Due to the recent echo that was done in 2018, a followup echo was not completed. Laboratory values revealed troponins that were measured at 0.033, 0.01, 0.016, 0.014. The past three readings were all within the negative range. His vital signs remained stable and his lab values were as follows. White blood cell count 5, hemoglobin 12, hematocrit 34, platelet count 210. Sodium 130, corrected sodium of 137, potassium 4.7, chloride 99, CO2 of 23, BUN 34, creatinine 2.6. POC glucose last measured at 152, down from 539. EKG demonstrated first-degree AV block. Chest x-ray showed AICD in place and no acute findings otherwise. Beta hydroxybutyrate measured in the ED was negative at 0.1. Hemoglobin A1c was measured at 12.6 during his most recent clinic followup earlier in the week. A stress test completed in November of 2018 also revealed no reversible ischemia. His lipid panel revealed a total cholesterol of 120, triglycerides 191, LDL 57, HDL 25, TSH 0.32 , magnesium 2.1, phosphorus 2.4. The patient was started on his previously recommended home insulin medication with a moderate scale of sliding insulin for corrections. He had no complaints throughout the rest of his hospital stay. He reported no additional episodes of chest pain. DISPOSITION: Stable. DISCHARGE INSTRUCTIONS: 1. Location: Home. 2. Diet: Carbohydrate conscious and heart healthy. 3. Activity: As tolerated. 4. Followup: The patient was encouraged to follow up with his primary care physician within 7 days to discuss his ongoing difficulties with controlling his blood sugars and type 2 diabetes. Job ID: [id number] [facility]
--- NOTE | 2019-04-04 02:34 | EKG ---
Test Reason : Blood Pressure : / mmHG Vent. Rate : 083 BPM Atrial Rate : 083 BPM P-R Int : 212 ms QRS Dur : 096 ms QT Int : 346 ms P-R-T Axes : 057 -17 013 degrees QTc Int : 406 ms Sinus rhythm with 1st degree A-V block Inferior infarct , age undetermined Abnormal ECG Confirmed by PHAN RICHARDSON, CHOCO Swenson ([id number]), general expeditor JAXON JONES ([id number]) on 04/04/2019 2:33:56 AM Referred By: Confirmed By:CHOCO CHISHOLM MD
== END 2019-03-28 14:36 | disposition home or self-care (01) ==
LOC: ERS 23:08 → 2SW 03-28 03:29
PROVIDERS: ADMIT Hospitalist; ATTEND Hospitalist
DX: E11.65 Type 2 diabetes mellitus with hyperglycemia (principal); R07.89 Other chest pain; I25.10 Atherosclerotic heart disease of native coronary artery without angina pectoris; J44.9 Chronic obstructive pulmonary disease, unspecified; I13.0 Hypertensive heart and chronic kidney disease with heart failure and stage 1 through stage 4 chronic kidney disease, or unspecified chronic kidney disease; E11.22 Type 2 diabetes mellitus with diabetic chronic kidney disease; N18.3 Chronic kidney disease, stage 3 (moderate); I50.22 Chronic systolic (congestive) heart failure; D63.1 Anemia in chronic kidney disease; E11.42 Type 2 diabetes mellitus with diabetic polyneuropathy; R79.89 Other specified abnormal findings of blood chemistry; K21.9 Gastro-esophageal reflux disease without esophagitis; E87.5 Hyperkalemia; I25.2 Old myocardial infarction; E78.5 Hyperlipidemia, unspecified; Z87.891 Personal history of nicotine dependence; Z79.4 Long term (current) use of insulin; Z79.899 Other long term (current) drug therapy; Z95.1 Presence of aortocoronary bypass graft; Z95.810 Presence of automatic (implantable) cardiac defibrillator
CPT/HCPCS: 71045; 80053; 80061; 80306; 82010; 82330; 82435; 82550; 82553; 82803; 82962 ×2; 83690; 83735; 84100; 84132; 84295; 84484 ×3; 85014; 85025; 93005; 94760; 96361; 96374; 99285; G0378 ×2; 36415; 36416; 84443; J1815

== ENCOUNTER 2019-05-30 18:25 | Observation (INO) | payer MEDICARE, MEDICAID ==
[2019-05-30] MEDS ORDERED: Nitroglycerin 2% Ointment 1 INCH/1 GM Packet ONE (18:47)
[2019-05-30 19:05] LABS: #Basophils 0.1 thou/uL (0.0-0.2); #Eosinphils 0.2 thou/uL (0.0-0.7); #Monocytes 0.5 thou/uL (0.11-0.59); #Neutrophils 5.7 thou/uL (1.40-6.50); %Basophils 0.6 % (0.0-1.0); %Eosinophils 2.4 % (0.0-10.0); %Lymphocytes 23.6 % (21.0-51.0); %Monocytes 5.4 % (0.0-10.0); Hemoglobin 12.7 g/dL (14.0-18.0); Mean Corpuscular HGB CONC 34.1 g/dL (32.0-36.0); Mean Corpuscular Hemoglobin 26.8 pg (27.0-31.0); Mean Corpuscular Volume 78.6 fL (78.0-98.0); Mean Platelet Volume 8.1 fL (7.4-10.4); Platelet Count 266 thou/uL (130-400); RBC Distribution Width 12.7 % (11.5-14.5); Red Blood Cell (RBC) Count 4.73 mill/uL (4.70-6.10); White Blood Cell (WBC) Count 8.4 thou/uL (4.8-10.8)
--- NOTE | 2019-05-30 19:06 | RAD ---
Chest one view HISTORY: Chest pain. COMPARISON: 03/27/2019. FINDINGS: Cardiac silhouette and pulmonary vasculature are unremarkable. Mediastinum is midline with postoperative changes and a dual lead left subclavian cardiac defibrillator. No lobar consolidation or evidence of pneumothorax. IMPRESSION: No active cardiopulmonary abnormalities are demonstrated.
[2019-05-30 19:26] LABS: ALT (SGPT) 25 U/L (8-55); AST (SGOT) 18 U/L (5-34); Albumin 3.9 g/dL (3.5-5.0); Alkaline Phosphatase 38 U/L (40-110); Anion Gap 13 mmol/L (10-20); BUN (Urea Nitrogen) 33 mg/dL (8.4-25.7); Bilirubin, Total 0.3 mg/dL (0.2-1.2); CK (CPK) 144 U/L (30-200); Calc. Creatinine Clearance 0 mL/min (70-130); Calcium 9.1 mg/dL (7.8-10.44); Carbon Dioxide 22 mmol/L (22-29); Chloride 102 mmol/L (98-107); Estimated GFR-MDRD 18; Globulin 3.2 g/dL (2.4-3.5); Glucose 320 mg/dL (70-105); Lipase 58 U/L (8-78); Potassium 4.6 mmol/L (3.5-5.1); Protein, Total 7.1 g/dL (6.0-8.3); Sodium 132 mmol/L (136-145)
[2019-05-30 19:42] LABS: Bacteria/HPF None Seen HPF (None Seen); Bilirubin Negative (Negative); Blood, Urine 1+ (Negative); Clarity Turbid (Clear); Glucose, Urine (Dipstick) Greater than 1000 mg/dL (Negative); Leukocyte 25 Leu/uL (Negative); Nitrite Negative (Negative); Protein, Urine (Dipstick) 300 mg/dL (Neg-Trace); Urobilinogen Normal mg/dL (Less than 2)
[2019-05-30 19:47] LABS: CKMB 1.7 ng/mL (0-6.6)
--- NOTE | 2019-05-30 20:10 | PDOC.FPRHP ---
- History of Present Illness Chief Complaint: Chest pain History of Present Illness: Pt is a 53 yo M with CAD, Hx of NV x2 (2005), DMII, HLD, HTN, and COPD who presents for substernal chest pain. He says he was sitting at the table and he felt fatigue, chest pain, and SOB. Chest pain was sharp, substernal, constant radiating to pacemaker in Left upper chest and to back of neck. Pain was 10/10. He took some nitro x2. He says that did not make any difference. EMS was called right away. In the ambulance, he received 4 baby aspirins. He says he also has had difficulty swallowing foods for the past couple of months. Only solids are the issue, does fine with liquids. He also states he has chest pain after he eats. Review of Records: ECHO: (12/09) EF: 45-49%. Mild Pulmonic & Tricuspid Regurg. Trace Mitral Regurg. Stress: (12/09) EF: 57%. Evidence of Inferior/inferolateral wall scar/infarct. ED Course: In the ED, nitro patch. Pain is currently 8/10. - Allergies/Adverse Reactions Allergies Allergy/AdvReac Type Severity Reaction Status Date / Time No Known Drug Allergies Allergy Verified 05/30/19 21:17 - Home Medications Medication Instructions Recorded Confirmed Type Gabapentin 600 mg PO BID 12/02/13 05/30/19 History Rosuvastatin [Crestor] 20 mg PO HS #0 tab 12/29/14 05/30/19 Rx Nitroglycerin 0.4 mg SL Q5MIN PRN 03/02/15 05/30/19 History Aspirin Chewable [Aspirin Chewable 81 mg PO DAILY tab 11/28/18 05/30/19 Rx Tablet] Fenofibrate Nanocrystallized 1 tab PO HS 12/11/18 05/30/19 History [Fenofibrate] Carvedilol [Coreg] 3.125 mg PO BID 03/28/19 05/30/19 History Icosapent Ethyl [Vascepa] 2 gm PO DAILY 03/28/19 05/30/19 History Cyclobenzaprine [Flexeril] 10 mg PO TID PRN #30 tab 05/31/19 Rx Insulin Glargine,Hum.Rec.Anlog 50 unit SC DAILY #1 pen 05/31/19 Rx [Lantus Solostar] - History PMHx: CAD, Hx of NV (2006), DMII with neuropathy, COPD, HTN, and HLD PSHx: Amputation of 2&3 toe on L foot (2019), Pacemaker x2, L knee surgery FHx: Mom: DM, Stroke Social: No smoking today, smoked from [age] 2PPD, no drinking, no recreational drugs. - Review of Systems General: reports: fever/chills, weight/appetite/sleep changes, fatigue Eyes: reports: vision changes (blurry vision in the morning that improves) ENT: reports: rhinorrhea. denies: nasal congestion Respiratory: reports: shortness of breath. denies: cough, congestion Cardiovascular: reports: chest pain. denies: edema Gastrointestinal: reports: nausea, constipation. denies: vomiting, diarrhea, abdominal pain Genitourinary: reports: dysuria Skin: denies: rashes Musculoskeletal: denies: pain, stiffness, swelling Neurological: reports: numbness, syncope (Feels like he is going to pass out after getting up quickly.), weakness - Vital signs BP: 119/78 HR: 78 RR: 18 Tmax: 98.6 Pox: 100% on RA Wt: 81.65 kg - Physical Exam Constitutional: NAD, awake, alert and oriented HEENT: normocephalic and atraumatic, PERRLA, conjunctiva clear, normal nasal mucosa, MMM, oropharynx clear Neck: supple, trachea midline Heart: RRR, normal S1/S2, pulses present, no edema Lungs: CTAB, no respiratory distress, good air movement Abdomen: soft, non-tender, bowel sounds present Musculoskeletal: normal structure, normal tone, ROM grossly normal Neurological: no focal deficit, CN II-XII intact Skin: no rash/lesions -Skin: Well healed 2&3 L toe amputations. Heme/Lymphatic: no unusual bruising or bleeding, no purpura, no petechia Psychiatric: normal mood and affect -Psychiatric: A&O X2 FMR H&P: Results - Labs Result Diagrams: 05/30/19 18:56 05/31/19 05:48 Lab results: WBC 8.4 thou/uL (4.8-10.8) 05/30/19 18:56 Hgb 12.7 g/dL (14.0-18.0) L 05/30/19 18:56 Hct 37.2 % (42.0-52.0) L 05/30/19 18:56 MCV 78.6 fL (78.0-98.0) 05/30/19 18:56 Plt Count 266 thou/uL (130-400) 05/30/19 18:56 Neutrophils % 68.0 % (42.0-75.0) 05/30/19 18:56 Sodium 132 mmol/L (136-145) L 05/30/19 18:56 Potassium 4.6 mmol/L (3.5-5.1) 05/30/19 18:56 Chloride 102 mmol/L (98-107) 05/30/19 18:56 Carbon Dioxide 22 mmol/L (22-29) 05/30/19 18:56 BUN 33 mg/dL (8.4-25.7) H 05/30/19 18:56 Creatinine 3.60 mg/dL (0.7-1.3) H 05/30/19 18:56 Glucose 320 mg/dL (70-105) H 05/30/19 18:56 Calcium 9.1 mg/dL (7.8-10.44) 05/30/19 18:56 Total Bilirubin 0.3 mg/dL (0.2-1.2) 05/30/19 18:56 AST 18 U/L (5-34) 05/30/19 18:56 ALT 25 U/L (8-55) 05/30/19 18:56 Alkaline Phosphatase 38 U/L (40-110) L 05/30/19 18:56 Creatine Kinase 144 U/L (30-200) 05/30/19 18:56 CK-MB (CK-2) 1.7 ng/mL (0-6.6) 05/30/19 18:56 Serum Total Protein 7.1 g/dL (6.0-8.3) 05/30/19 18:56 Albumin 3.9 g/dL (3.5-5.0) 05/30/19 18:56 Lipase 58 U/L (8-78) 05/30/19 18:56 Urine Ketones Negative mg/dL (Negative) 05/30/19 19:23 Urine Blood 1+ (Negative) A 05/30/19:23 Urine Nitrite Negative (Negative) 05/30/19 19:23 Ur Leukocyte Esterase 25 Quin/uL (Negative) 05/30/19 19:23 Urine RBC 4-6 HPF (0-3) A 05/30/19 19:23 Urine WBC 11-20 HPF (0-3) A 05/30/19 19:23 Ur Squamous Epith Cells 7-10 HPF (0-3) A 05/30/19 19:23 Urine Bacteria None Seen HPF (None Seen) 05/30/19 19:23 FMR H&P: A/P - Problem List (1) Chest pain Status: Acute Priority: High Code(s): R07.9 - CHEST PAIN, UNSPECIFIED Qualifiers: Chest pain type: other chest pain Qualified Code(s): R07.89 - Other chest pain; R07.8 - Other chest pain (2) Acute kidney injury superimposed on CKD Status: Acute Code(s): N17.9 - ACUTE KIDNEY FAILURE, UNSPECIFIED; N18.9 - CHRONIC KIDNEY DISEASE, UNSPECIFIED (3) Hyperlipidemia Status: Chronic Code(s): E78.5 - HYPERLIPIDEMIA, UNSPECIFIED Qualifiers: Hyperlipidemia type: mixed hyperlipidemia Qualified Code(s): E78.2 - Mixed hyperlipidemia Comment: Continue on Statins (4) Hypertension Status: Chronic Code(s): I10 - ESSENTIAL (PRIMARY) HYPERTENSION Qualifiers: Hypertension type: essential hypertension Qualified Code(s): I10 - Essential (primary) hypertension (5) Diabetes mellitus type 2, uncontrolled Status: Chronic Code(s): E11.65 - TYPE 2 DIABETES MELLITUS WITH HYPERGLYCEMIA Qualifiers: Glycemic state: with hyperglycemia Qualified Code(s): E11.65 - Type 2 diabetes mellitus with hyperglycemia (6) COPD (chronic obstructive pulmonary disease) Status: Acute (7) UTI (urinary tract infection) Status: Acute - Plan Pt is a 53 yo M with CAD, Hx of [place] x2 (2005), DMII, HLD, HTN, and COPD who presents for substernal chest pain. 1. 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 Mild Pulmonic & Tricuspid Regurg. Trace Mitral Regurg. * Stress: (12/09) EF: 57%. Evidence of Inferior/inferolateral wall scar/infarct. * Trop: 0.037, will trend * Trop 12/09 before d/c: 0.014 * Consult Cardio in Morning (follows with Lyla) * We will hold ECHO & Stress at this time, likely needs ECHO, was supposed to follow-up outpt after last admission about it * Will get EKG for any change in chest pain * Will continue Nitro and ASA 2. JUANCHO on CKD Cre baseline: 2.47, Cre today: 3.6 * Given fluids in ED * Will get NS @ 75 ml/h * Ordered FeNa labs 3. HTN: * Will Continue Carvedilol 4. HLD: * Will continue Vascepa * Will get Lipid panel 5. DMII B * Will continue home Levemir 50 U daily * SSI Mod with QHS SSI * Accuchecks QACHS & Q4Hs nightly * Will get A1c * Last A1c: 12.6 (03/11) 6. COPD * Not currently on medication at home * Will order prn duonebs 7. UTI Symptoms of dysturia * UA: LE- 25, WBC- 11-20, Nitrites- Neg, Epi cells-7-10 * Will get Cx to r/o UTI Code Status: Full PCP: TARIK Kohler Lines: Peripheral, NS @ 75 cc/h DVT PPx: SCDs, due to Renal compromise Diet: CC @ 1800 with HHLSo Dispo: Tele Obs, LOS <48H. Will await cards recs and trops. FMR H&P: Upper Level - Plan Date/Time: 05/30/192007 Bernardo Singh MD, PGY-3 have evaluated this patient and agree with findings/ plan as outlined by international banker resident. Pertinent changes/additions are listed here. Atypical chest pain-admitted for observation. Will trend troponins. Recent stress in November 2018 without reversible ischemia, but pt does have a hx of CAD s/ p cath with stent placement. If troponins increase will consult cardiology and give ther lovenox. PT also with an JUANCHO. Ordered labs and placed on low maintenance IV fluids. Will monitor closely. Addendum - Attending - Attending Attestation Date/Time: 05/31/19 5025 I personally evaluated the patient and discussed the management with the team on day of admission. I agree with the History, Examination, Assessment and Plan documented above with any addition or exceptions noted below.
[2019-05-30 21:09] VITALS: BMI 24.9
[2019-05-30] MEDS ORDERED: Ondansetron ODT 4 MG TAB SL PRN (21:16)
[2019-05-30] MEDS ORDERED: Ondansetron PF 4 MG/2 ML Vial IVP PRN (21:16)
[2019-05-30] MEDS ORDERED: Aspirin 325 MG TAB PO SCH (21:30)
[2019-05-30] MEDS ORDERED: Nitroglycerin 0.4 MG TAB (25 Tab Bottle) SL PRN (21:32)
[2019-05-30] MEDS ORDERED: Dextrose 5% in Water 1,000 ML IV PRN ×2 (21:34→22:00)
[2019-05-30] MEDS ORDERED: HumaLOG 300 UNITS/3 ML VIAL SC PRN ×2 (21:34→22:00)
[2019-05-30] MEDS ORDERED: Dextrose 50% Abboject 50 ML SYRINGE SLOW IVP PRN ×2 (21:34→22:00)
[2019-05-30] MEDS: Sodium Chloride 0.9% 1,000 ML IV SCH ×2 (21:41→22:16)
[2019-05-30 22:22] LABS: Troponin I 0.026 ng/mL (< 0.028)
[2019-05-30] MEDS ORDERED: Gabapentin 300 MG CAP PO SCH (22:30)
[2019-05-30] MEDS ORDERED: Fenofibrate Nanocrystallized 145 MG TAB PO SCH (22:30)
[2019-05-30] MEDS ORDERED: Rosuvastatin 20 MG TAB PO SCH (22:30)
[2019-05-30 23:07] LABS: Creatinine, Urine 153.54 mg/dL (63-166)
[2019-05-31 01:32] LABS: Troponin I Less than 0.010 ng/mL (< 0.028)
--- NOTE | 2019-05-31 05:29 | PDOC.FM ---
- Subjective Subjective: Doing well this morning, has not had chest pain overnight. - Objective MAR Reviewed: Yes Vital Signs & Weight: Vital Signs (12 hours) Temp Pulse Resp BP Pulse Ox 05/31/19 04:00 97.8 F 85 16 101/60 96 05/31/19 00:48 97 05/30/19 21:00 97.8 F 82 22 H 136/74 98 Weight Weight 74.344 kg Result Diagrams: 05/30/19 18:56 05/31/19 05:48 Phys Exam - Physical Examination Constitutional: NAD HEENT: moist MMs, sclera anicteric Neck: supple, full ROM Respiratory: no wheezing, no rales, no rhonchi, clear to auscultation bilateral Cardiovascular: RRR, no significant murmur, no rub Gastrointestinal: soft, non-tender, no distention, positive bowel sounds Musculoskeletal: no edema, pulses present Neurological: non-focal, normal sensation, moves all 4 limbs Psychiatric: normal affect, A&O x 3 Skin: no rash, normal turgor Dx/Plan (1) JUANCHO (acute kidney injury) Code(s): N17.9 - ACUTE KIDNEY FAILURE, UNSPECIFIED Status: Acute (2) Acute kidney injury superimposed on CKD Code(s): N17.9 - ACUTE KIDNEY FAILURE, UNSPECIFIED; N18.9 - CHRONIC KIDNEY DISEASE, UNSPECIFIED Status: Acute (3) Chest pain Code(s): R07.9 - CHEST PAIN, UNSPECIFIED Status: Acute Qualifiers: Chest pain type: other chest pain Qualified Code(s): R07.89 - Other chest pain; R07.8 - Other chest pain (4) Diabetes mellitus Code(s): E11.9 - TYPE 2 DIABETES MELLITUS WITHOUT COMPLICATIONS Status: Acute (5) Elevated troponin Code(s): R79.89 - OTHER SPECIFIED ABNORMAL FINDINGS OF BLOOD CHEMISTRY Status : Acute - Plan Plan: Pt is a 53 yo M with CAD, Hx of [place] x2 (2005), DMII, HLD, HTN, and COPD who presents for substernal chest pain. Atypical Chest Pain Pain at rest and with movement, substernal, does not improve with nitro -Heart Score: 5 -He was admitted for Chest pain in November * ECHO: (12/09) EF: 45-49%. Mild Pulmonic & Tricuspid Regurg. Trace Mitral Regurg. * Stress: (12/09) EF: 57%. Evidence of Inferior/inferolateral wall scar/infarct. -Trop: 0.037 > 0.026 > <0.010 (negative) -Discussed case this morning with Dr. Devine, recommends lovenox for 3 days for unstable angina. No procedures at this time. -Appreciate cardiology recommendations JUANCHO on CKD, resolved -Cr back to baseline -NS @ 75mL/hour -repeat BMP this morning HTN - Will Continue Carvedilol HLD, hypertriglyceridemia - Will continue Vascepa - Will get Lipid panel DMII - A1c >14 - Will continue home Levemir 50 U daily - Accuchecks QACHS & Q4Hs nightly - Last A1c: 12.6 (03/11) COPD - Not currently on medication at home - DuoNebs prn UTI - Complains of dysuria - UA: LE- 25, WBC- 11-20, Nitrites- Neg, Epi cells-7-10 - Will get Cx to r/o UTI Code Status: Full PCP: TARIK Kohler Lines: Peripheral, NS @ 75 cc/h DVT PPx: SCDs, due to Renal compromise Diet: CC Dispo: Tele Obs, LOS likely <48H.
[2019-05-31 05:51] LABS: Cardiac Risk 4.7 (Less than 4.5)
[2019-05-31 06:27] LABS: Hemoglobin A1c Greater than 14.0 % (4.0-6.0)
[2019-05-31 06:39] LABS: Anion Gap 10 mmol/L (10-20); BUN (Urea Nitrogen) 30 mg/dL (8.4-25.7); Calc. Creatinine Clearance 32 mL/min (70-130); Calcium 8.8 mg/dL (7.8-10.44); Carbon Dioxide 21 mmol/L (22-29); Chloride 108 mmol/L (98-107); Estimated GFR-MDRD 24; Glucose 279 mg/dL (70-105); Potassium 4.1 mmol/L (3.5-5.1); Sodium 135 mmol/L (136-145)
[2019-05-31] MEDS ORDERED: Carvedilol 3.125 MG TAB PO SCH (08:00)
[2019-05-31] MEDS: Sodium Chloride 0.9% 1,000 ML IV SCH ×2 (08:55→09:52)
[2019-05-31] MEDS ORDERED: Insulin Glargine 50 UNITS in Pre-Filled Syringe 1 EACH SC SCH (09:00)
[2019-05-31] MEDS ORDERED: Aspirin Chewable 81 MG TAB PO SCH (09:00)
[2019-05-31] MEDS ORDERED: Gabapentin 300 MG CAP PO SCH (09:00)
[2019-05-31] MEDS ORDERED: ICOSAPENT ETHYL 1 GM PO SCH (09:00)
[2019-05-31] MEDS ORDERED: Non-Formulary Item 1 EACH (Insulin Detemir [Levemir] 50 UNITS) SC SCH (09:00)
[2019-05-31] MEDS ORDERED: Enoxaparin Sodium 80 MG/0.8 ML SYRINGE SC SCH ×3 (12:00→21:00)
[2019-05-31] MEDS: Morphine 2 MG/ML SYRINGE SLOW IVP SCH ×2 (12:26→14:10)
--- NOTE | 2019-05-31 14:50 | CON ---
DATE OF CONSULTATION: HISTORY OF PRESENT ILLNESS: The patient is a 53-year-old gentleman with a history of coronary artery disease, who presents with left-sided chest discomfort. The patient has a long history of coronary artery disease. The patient suffered a large myocardial infarction in 2003. He subsequently underwent coronary artery bypass surgery x3. The patient has a known ischemic cardiomyopathy. The patient had a long history of noncompliance. The patient also suffers from chronic renal insufficiency. He was in his usual state of health when he developed left- sided chest discomfort. He reports that this is worse whenever he takes a deep breath or with movement. The patient states the chest pain began yesterday and has been continuous. PAST MEDICAL HISTORY: 1. Coronary artery disease. 2. Ischemic cardiomyopathy. 3. Diabetes mellitus. 4. Chronic renal failure. 5. Hypertension. 6. He had history of AICD placement. PAST SURGICAL HISTORY: Knee surgery, coronary artery bypass surgery. SOCIAL HISTORY: Former smoker. FAMILY HISTORY: There is no strong family history of heart disease. MEDICATIONS: See nursing list. PHYSICAL EXAMINATION: GENERAL: Well-developed gentleman, in no acute distress. VITAL SIGNS: Blood pressure 126/74. NECK: Showed no jugular venous distention. LUNGS: Clear to auscultation. HEART: Regular rate and rhythm. Normal S1 and S2. ABDOMEN: Nondistended. EXTREMITIES: Showed no edema. VASCULAR: Radial pulse 2+. LABORATORY DATA: Sodium is 135, potassium 4.1, chloride 108, bicarbonate 21, BUN 30, and creatinine 2.74. His troponin less than 0.01. IMAGING DATA: EKG :normal sinus rhythm with Q-waves suggestive of previous inferior infarct. IMPRESSION: 1. Musculoskeletal discomfort. 2. History of coronary artery bypass graft surgery. 3. Ischemic cardiomyopathy. 4. Hypertension. 5. Diabetes mellitus. 6. Dyslipidemia. 7. History of automated implantable cardioverter-defibrillator placement. 8. Renal insufficiency. PLAN: This gentleman presents with atypical chest discomfort. He clearly states the chest discomfort has been present for nearly 24 hours without any change in his EKG and unremarkable cardiac enzymes. The patient's chest pain is probably musculoskeletal. We will start treating the patient with morphine. We will follow this patient with you through his hospitalization. Job ID: [id number] [facility]
--- NOTE | 2019-05-31 14:55 | PRG ---
DATE OF SERVICE: 05/31/2019 ADDENDUM: Please add this as an addendum to the note of Dr. Domitila Craig. I have examined the patient. I read over the note of Dr. Domitila Craig and discussed it with her. I agree with her assessment and plan. Mr. Durham had been admitted for chest pain and is on good medical therapy for coronary pain. He is counseled about getting his diabetes under better control as well. Job ID: [id number]
[2019-05-31 15:21] VITALS: BP 101/65; TEMP 97.6
[2019-05-31] MEDS ORDERED: Fenofibrate Nanocrystallized 145 MG TAB PO SCH (21:00)
[2019-05-31] MEDS ORDERED: Rosuvastatin 20 MG TAB PO SCH (21:00)
[2019-06-01] MEDS ORDERED: Enoxaparin Sodium 80 MG/0.8 ML SYRINGE SC SCH (12:00)
--- NOTE | 2019-06-01 14:28 | DIS ---
DATE OF ADMISSION: 05/30/2019 DATE OF DISCHARGE: 05/31/2019 RESIDENT: Domitila Craig MD ADMITTING DOCTOR: Dr. Eugenio Allan MD. DISCHARGE ATTENDING: Dr. Joni Walter MD CONSULTS: Dr. Devine, Dr. Barrios. PROCEDURES: None. PRIMARY DIAGNOSIS: Atypical chest pain. SECONDARY DIAGNOSES: 1. Acute kidney injury on chronic kidney disease. 2. Hypertension. 3. Hyperlipidemia. 4. Diabetes. 5. Chronic obstructive pulmonary disease. DISCHARGE MEDICATIONS: 1. Carvedilol. 2. Fenofibrate. 3. Gabapentin. 4. Vascepa 5. Nitroglycerin. 6. Aspirin. 7. Flexeril. 8. Insulin. 9. Rosuvastatin. Discontinued medications, none. HOSPITAL COURSE: Mr. Durham is a 53-year-old male who presented to the ER with a chief complaint of substernal chest pain that acutely presented while he was sitting at the dinner table. It was a 10/10 with radiation to his left upper chest and to the back of his neck. He has a significant cardiac history including coronary artery disease, history of myocardial infarction x2, diabetes, hyperlipidemia, hypertension, and COPD. He took 3 nitroglycerin and as they did not make a difference, so he called EMS. In reviewing his records, he has been to the hospital twice in the last six months for similar complaints. A workup done in November revealed an ejection fraction of 45% to 50% and a stress test that showed evidence of inferior and inferolateral scar or infarct. Due to this, Dr. Devine was consulted on admission for recommendations. He saw the patient on the night and recommended that we treat the patient medically with morphine and he believes the pain to be musculoskeletal in nature. Upon examination, the patient was tender to palpation along the sternal border and along his wrist and states that this is the similar type of pain that he experienced at home. Patient was discharged home after ruling out significant cardiac cause of chest pain. His troponin was negative. His fasting lipid profile was essentially normal and his other lab studies were within normal limits. DISPOSITION: Stable. DISCHARGE INSTRUCTIONS: Location: Home. Diet: Heart healthy. Activity: Ad stefanie. Follow up with primary care physician and cell pourer. Job ID: [id number] [facility]
== END 2019-05-31 17:50 | disposition home or self-care (01) ==
LOC: ERS 18:25 → 2SW 21:05
PROVIDERS: ADMIT Emergency Medicine; ATTEND Emergency Medicine
DX: R07.89 Other chest pain (principal); I25.10 Atherosclerotic heart disease of native coronary artery without angina pectoris; N17.9 Acute kidney failure, unspecified; N39.0 Urinary tract infection, site not specified; I12.9 Hypertensive chronic kidney disease with stage 1 through stage 4 chronic kidney disease, or unspecified chronic kidney disease; N18.9 Chronic kidney disease, unspecified; E78.5 Hyperlipidemia, unspecified; E11.22 Type 2 diabetes mellitus with diabetic chronic kidney disease; J44.9 Chronic obstructive pulmonary disease, unspecified; E11.65 Type 2 diabetes mellitus with hyperglycemia; E11.40 Type 2 diabetes mellitus with diabetic neuropathy, unspecified; Z79.4 Long term (current) use of insulin; I25.2 Old myocardial infarction; Z79.82 Long term (current) use of aspirin; Z79.899 Other long term (current) drug therapy; Z89.422 Acquired absence of other left toe(s); Z95.0 Presence of cardiac pacemaker
CPT/HCPCS: 36415; 36416; 71045; 80048; 80053; 80061; 81003; 81015; 82550; 82553; 82570; 83036; 83690; 84300; 84484; 85025; 87086; 93005; 94760; 96360; 96361; 96372; 96374; 96376; G0378; J1650; J1815; J2270

== ENCOUNTER 2019-06-15 20:15 | Inpatient (IN) | payer MEDICARE, MEDICAID ==
[2019-06-15] MEDS ORDERED: Insulin Regular 300 UNITS/3 ML VIAL ONE (21:13)
[2019-06-15 21:30] LABS: #Basophils 0.1 thou/uL (0.0-0.2); #Eosinphils 0.2 thou/uL (0.0-0.7); #Lymphocytes 2.1 thou/uL (1.20-3.40); #Monocytes 0.1 thou/uL (0.11-0.59); #Neutrophils 3.1 thou/uL (1.40-6.50); %Basophils 2.3 % (0.0-1.0); %Eosinophils 3.2 % (0.0-10.0); %Lymphocytes 37.5 % (21.0-51.0); %Monocytes 2.5 % (0.0-10.0); %Neutrophils 54.4 % (42.0-75.0); Hemoglobin 12.1 g/dL (14.0-18.0); Mean Corpuscular HGB CONC 34.4 g/dL (32.0-36.0); Mean Corpuscular Volume 78.5 fL (78.0-98.0); Mean Platelet Volume 8.4 fL (7.4-10.4); Platelet Count 222 thou/uL (130-400); RBC Distribution Width 12.7 % (11.5-14.5); Red Blood Cell (RBC) Count 4.47 mill/uL (4.70-6.10); White Blood Cell (WBC) Count 5.6 thou/uL (4.8-10.8)
[2019-06-15 21:35] LABS: PTT 26.3 SEC (22.9-36.1); Prothrombin Time 12.8 SEC (12.0-14.7)
[2019-06-15 21:51] LABS: ALT (SGPT) 28 U/L (8-55); AST (SGOT) 20 U/L (5-34); Albumin 3.5 g/dL (3.5-5.0); Alkaline Phosphatase 37 U/L (40-110); Anion Gap 10 mmol/L (10-20); BUN (Urea Nitrogen) 33 mg/dL (8.4-25.7); Bilirubin, Total 0.2 mg/dL (0.2-1.2); Calc. Creatinine Clearance 0 mL/min (70-130); Calcium 8.2 mg/dL (7.8-10.44); Carbon Dioxide 22 mmol/L (22-29); Chloride 103 mmol/L (98-107); Estimated GFR-MDRD 25; Globulin 3.1 g/dL (2.4-3.5); Glucose 455 mg/dL (70-105); Potassium 4.4 mmol/L (3.5-5.1); Protein, Total 6.6 g/dL (6.0-8.3); Sodium 131 mmol/L (136-145)
--- NOTE | 2019-06-15 22:09 | RAD ---
FRONTAL VIEW CHEST: 06/15/19 INDICATION: Pain. COMPARISON: 05/30/19. FINDINGS: There is prominence of pulmonary vascular and pulmonary interstitium. Redemonstration of sternotomy w ires and left sided AICD. No effusion or discrete pneumothorax. IMPRESSION: Findings indicate mild fluid overload. Correlate clinically. POS: PUJAK
--- NOTE | 2019-06-15 23:19 | CT ---
CT HEAD WITHOUT IV CONTRAST COMPARISON: 09/19/2018 HISTORY: Syncope. Pain and tingling in left arm. Nausea. TECHNIQUE: Axial CT imaging at 5 mm intervals from vertex through skull base without contrast FINDINGS: There is a subcentimeter increased density focus seen in the medial aspect left cerebellar hemisphere which may potentially represent a small calcification. This is stable dating back to prior studies in 2013 and 2014. There is no evidence of an acute infarction, hemorrhage, mass effect, or midline sh ift. The ventricular system is normal in size, shape, and position. Mucosal thickening is present in the right sphenoid sinus and bilateral maxillary antra. Mastoid air cells are clear. Osseous structures appear intact. IMPRESSION: 1. Stable CT scan of the head without evidence of an acute intracranial abnormality demonstrated. 2. Mild sinus disease.
--- NOTE | 2019-06-15 23:57 | PDOC.FPRHP ---
- History of Present Illness Chief Complaint: Chest Pain w/ Syncope History of Present Illness: Samuel Durham is a 53 y/o male with a PMH significant for multiple MIs in 2013 treated with stent placement and multi-vessel CABG, with eventual AICD placement, who presents to the ED following an episode of chest pain. The patient states that he was walking in his kitchen earlier in the evening when he felt a sudden, sharp chest pain on the left side of his chest with associated numbness and tingling of his left shoulder, arm and hand. He additionally felt short of breath, light-headed and somewhat nausea. He was able to support himself on the couch but eventually lost consciousness. His daughter, who was present during this episode, states that she immediately called EMS who were able to revive him 15-30 minutes later prior to bringing him to the ED. The patient's daughter denies any seizure-like activity. Per the patient, this type of episodes has happened multiple times in the past 2 weeks. ED Course: Per the ED attending physician, Mr. Durham' vital signs remained stable during his time in the ED and he remained pain-free. An EKG was performed which revealed no acute ST-Segment changes. Initial Troponin levels were negative. s/p ASA x1 - Allergies/Adverse Reactions Allergies Allergy/AdvReac Type Severity Reaction Status Date / Time No Known Drug Allergies Allergy Verified 05/30/19 21:17 - Home Medications Medication Instructions Recorded Confirmed Type Gabapentin 600 mg PO BID 12/02/13 06/16/19 History Rosuvastatin [Crestor] 20 mg PO HS #0 tab 12/29/14 06/16/19 Rx Nitroglycerin 0.4 mg SL Q5MIN PRN 03/02/15 06/16/19 History Aspirin Chewable [Aspirin Chewable 81 mg PO DAILY tab 11/28/18 06/16/19 Rx Tablet] Fenofibrate Nanocrystallized 1 tab PO HS 12/11/18 06/16/19 History [Fenofibrate] Carvedilol [Coreg] 3.125 mg PO BID 03/28/19 06/16/19 History Icosapent Ethyl [Vascepa] 2 gm PO DAILY 03/28/19 06/16/19 History Cyclobenzaprine [Flexeril] 10 mg PO TID PRN #30 tab 05/31/19 06/16/19 Rx Insulin Detemir [Levemir Flextouch] 50 units SC DAILY 06/16/19 06/16/19 History - History PMHx: [place], CAD, AICD, DM2 PSHx: s/p AICD Placement, Multi-Vessel Cabbage, Stent Placement x2 FHx: +HTN, +CAD, DM2 Social: Remote 2 PPD Tobacco Hx, Remote EtOH Abuse - currently Denies x3. Code: Full - Review of Systems General: reports: fatigue. denies: fever/chills Eyes: denies: vision changes ENT: denies: nasal congestion, rhinorrhea Respiratory: reports: shortness of breath. denies: cough, congestion Cardiovascular: reports: chest pain. denies: palpitation, edema Gastrointestinal: reports: nausea. denies: vomiting, diarrhea, constipation, abdominal pain Genitourinary: denies: dysuria, discharge Skin: denies: rashes, lesions Musculoskeletal: denies: pain, swelling Neurological: reports: syncope - Vital signs BP: [140/90] HR: [87] RR: [16] Tmax: [98.5] Pox: [98]% on [Room] Wt: [81 kg] - Physical Exam Constitutional: NAD, awake, alert and oriented HEENT: normocephalic and atraumatic, PERRLA, conjunctiva clear, no scleral icterus, grossly normal vision, grossly normal hearing, normal nasal mucosa, MMM , oropharynx clear Neck: supple, FROM, trachea midline, no LAD, no JVD Chest: no-tender to palpation, no lesions Heart: RRR, normal S1/S2, no murmurs/rubs/gallops, pulses present, no edema Lungs: CTAB, no respiratory distress, good air movement, no rales/rhonchi, no wheezing, no retractions Abdomen: soft, bowel sounds present, no masses/distention, no hernias, other ( Patient admitted to mild mid-epigastric TTP) Musculoskeletal: normal structure, ROM grossly normal Neurological: no focal deficit, CN II-XII intact Skin: no rash/lesions, capillary refill <2 seconds, no jaundice Heme/Lymphatic: no unusual bruising or bleeding, no purpura, no petechia, no LAD Psychiatric: normal mood and affect, intact recent and remote memory FMR H&P: Results - Labs Result Diagrams: 06/16/19 03:29 06/16/19 03:29 Lab results: WBC 5.6 thou/uL (4.8-10.8) 06/15/19 21:21 Hgb 12.1 g/dL (14.0-18.0) L 06/15/19 21:21 Hct 35.1 % (42.0-52.0) L 06/15/19 21:21 MCV 78.5 fL (78.0-98.0) 06/15/19 21:21 Plt Count 222 thou/uL (130-400) 06/15/19 21:21 Neutrophils % 54.4 % (42.0-75.0) 06/15/19 21:21 Sodium 131 mmol/L (136-145) L 06/15/19 21:21 Potassium 4.4 mmol/L (3.5-5.1) 06/15/19 21:21 Chloride 103 mmol/L (98-107) 06/15/19 21:21 Carbon Dioxide 22 mmol/L (22-29) 06/15/19 21:21 BUN 33 mg/dL (8.4-25.7) H 06/15/19 21:21 Creatinine 2.70 mg/dL (0.7-1.3) H 06/15/19 21:21 Glucose 455 mg/dL (70-105) H 06/15/19 21:21 Calcium 8.2 mg/dL (7.8-10.44) 06/15/19 21:21 Total Bilirubin 0.2 mg/dL (0.2-1.2) 06/15/19 21:21 AST 20 U/L (5-34) 06/15/19 21:21 ALT 28 U/L (8-55) 06/15/19 21:21 Alkaline Phosphatase 37 U/L (40-110) L 06/15/19 21:21 B-Natriuretic Peptide 25.9 pg/mL (0-100) 06/15/19 21:21 Serum Total Protein 6.6 g/dL (6.0-8.3) 06/15/19 21:21 Albumin 3.5 g/dL (3.5-5.0) 06/15/19 21:21 FMR H&P: A/P - Problem List (1) Syncope Current Visit: Yes Status: Acute Code(s): R55 - SYNCOPE AND COLLAPSE (2) CKD (chronic kidney disease) Current Visit: No Status: Chronic Code(s): N18.9 - CHRONIC KIDNEY DISEASE, UNSPECIFIED Qualifiers: Chronic kidney disease stage: stage 3 (moderate) Qualified Code(s): N18.3 - Chronic kidney disease, stage 3 (moderate) (3) Diabetes mellitus type 2, uncontrolled Current Visit: No Status: Chronic Code(s): E11.65 - TYPE 2 DIABETES MELLITUS WITH HYPERGLYCEMIA Qualifiers: Glycemic state: with hyperglycemia Qualified Code(s): E11.65 - Type 2 diabetes mellitus with hyperglycemia - Plan Patient is a 53 y/o male with admitted to the Telemetry Floor following an episode of chest pain complicated by a syncopal episode. 1. Syncope -Witnessed loss of consciousness for 15-30 minutes -Patient's chest pain in light of advanced cardiac history is concerning - may be contributing factor to syncopal episode -Chart review of most recent hospitalization documented similar findings of chest pain with syncope/near-syncope without EKG changes or significant Troponin elevations - cardiac arrhythmia suspected -EKG: No ST-Segment changes -Trops: Low-Indeterminate -CXR: Mild Fluid Overload -CT Head: NAF -Echo: Pending -AICD Interrogation: Pending -Heart Score: 5 -Stress Test (12/09): No reversible of irreversible defects - will not repeat at this time -Acute intoxication appears unlikely at this time -Consider Cardiology consult in AM 2. DM2 -Glucose: 455 on 06/15 - poorly controlled -Restart home medication regimen -Moderate SSI 3. HTN -BP: 140/90 on 06/15 -No severe-range pressures documented during hospitalization -Restart home medication regimen 4. CAD -Restart home medication regimen Code: Full Diet: NPO Activity: Ambulate w/ Assist VTE PPx: Lovenox & SCDs Dispo: Patient is a 53 y/o male currently admitted to the Telemetry Floor. Await Echo results and AICD interrogation and continue to manage chronic health conditions and adjust plan as needed. Consider Cardiology consult in Echo and/or AICD interrogation are non-reassuring. Expected LOS < 48H. FMR H&P: Upper Level - Pertinent history 53 y/o M PMHx CAD s/p stents and CABG, DM2, HTN, HLD, COPD presents to the ED due to chest pain and syncope. He reports chest pain came on suddenly as sharp left sided chest pain and tingling in his left arm. He reports some diaphoresis and then he went to lay down and then passed out and became unresponsive. At the time of EMS arrival he was still unresponsive and came back while in transit. EMS gave him aspirin and nitro and he reports that did not help with his chest pain. - Pertinent findings BP 107/61, HR 88, RR 16, O2 99% on RA PE: Gen - alert, oriented, NAD CV - RRR, no murmurs, AICD in place, tenderness around this spot Resp - CTAB no wheezes Abd - TTP in JOSEE region, soft, non-distended Labs: BUN 33, Cr 2.7, Gluc 455, Trop 0.015, BNP 25.9 CXR - mild fluid overload - Plan Date/Time: 06/16/19 00:01 I, Carmen Rodriguez MD, PGY-3, have evaluated this patient and agree with findings/ plan as outlined by manager intern resident. Pertinent changes/additions are listed here. 1. Syncope Pt reportedly had episode of syncope after complaining of chest pain. He reports feeling dizzy just before the episode. His daughter reported he was very pale. -Obs on tele -Echo -Telemetry monitoring 2. Atypical Chest pain, likely musculoskeletal Pt had stress test in 11/2018 that showed no reversible defect. He follows with Dr. Arita. He does have an extensive cardiac history. Heart score 4. -Trend trops -Echo -Aspirin -Nitro prn -NPO and consider cards consult in the AM vs repeat stress test -Check lipase 3. JUANCHO on CKD -Will monitor -Avoid nephrotoxic agents 4. DM2 Appears uncontrolled -Accuchecks -SSI 5. HTN Stable -Resume home meds Dispo: Obs on tele LOS: Likely less than 48 hours Addendum - Attending - Attending Attestation Date/Time: 06/16/192055 I personally evaluated the patient and discussed the management with Dr. Chung and Michael. I agree with the History, Examination, Assessment and Plan documented above with any addition or exceptions noted below.
[2019-06-16 01:01] LABS: Troponin I 0.033 ng/mL (< 0.028)
[2019-06-16] MEDS ORDERED: Calcium Carbonate 500 MG ChewTAB PO PRN (01:25)
[2019-06-16] MEDS ORDERED: Dextrose 5% in Water 1,000 ML IV PRN (01:25)
[2019-06-16] MEDS ORDERED: Dextrose 50% Abboject 50 ML SYRINGE SLOW IVP PRN (01:25)
[2019-06-16 01:29] VITALS: BMI 25.5
[2019-06-16] MEDS ORDERED: Aspirin 325 MG TAB PO SCH (02:15)
[2019-06-16 03:43] LABS: #Basophils 0.1 thou/uL (0.0-0.2); #Eosinphils 0.2 thou/uL (0.0-0.7); #Lymphocytes 2.6 thou/uL (1.20-3.40); #Monocytes 0.4 thou/uL (0.11-0.59); #Neutrophils 3.1 thou/uL (1.40-6.50); %Basophils 1.2 % (0.0-1.0); %Eosinophils 2.7 % (0.0-10.0); %Lymphocytes 41.2 % (21.0-51.0); %Monocytes 5.9 % (0.0-10.0); Hemoglobin 12.5 g/dL (14.0-18.0); Mean Corpuscular Hemoglobin 27.4 pg (27.0-31.0); Mean Corpuscular Volume 78.2 fL (78.0-98.0); Platelet Count 218 thou/uL (130-400); RBC Distribution Width 12.7 % (11.5-14.5); Red Blood Cell (RBC) Count 4.58 mill/uL (4.70-6.10); White Blood Cell (WBC) Count 6.4 thou/uL (4.8-10.8)
[2019-06-16 04:05] LABS: Anion Gap 10 mmol/L (10-20); BUN (Urea Nitrogen) 28 mg/dL (8.4-25.7); Calc. Creatinine Clearance 41 mL/min (70-130); Calcium 8.8 mg/dL (7.8-10.44); Carbon Dioxide 23 mmol/L (22-29); Chloride 108 mmol/L (98-107); Estimated GFR-MDRD 30; Glucose 180 mg/dL (70-105); Sodium 137 mmol/L (136-145)
[2019-06-16 04:10] LABS: Troponin I 0.023 ng/mL (< 0.028)
--- NOTE | 2019-06-16 06:54 | PDOC.FM ---
- Subjective Subjective: Pt states he is still having some chest pain. It in his upper left chest, worse with palpation and associated with left arm soreness. He denies SOB, nausea, vomiting. - Objective MAR Reviewed: Yes Vital Signs & Weight: Vital Signs (12 hours) Temp Pulse Resp BP BP BP BP 06/16/19 04:15 97.8 F 92 18 137/81 06/16/19 00:50 98.1 F 90 18 129/81 120/76 139/82 Pulse Ox 06/16/19 04:15 98 06/16/19 00:50 100 Weight Weight 80.785 kg I&O: 06/14/19 06/15/19 06/16/19 06:59 06:59 06:59 Intake Total 240 Output Total 675 Balance -435 Result Diagrams: 06/16/19 03:29 06/16/19 03:29 Phys Exam - Physical Examination Constitutional: NAD HEENT: moist MMs Neck: no JVD Respiratory: no wheezing, clear to auscultation bilateral Cardiovascular: RRR, no significant murmur Pain to palpation of left upper chest and left arm Gastrointestinal: soft, non-tender, no distention, positive bowel sounds Musculoskeletal: no edema, pulses present Neurological: moves all 4 limbs Psychiatric: A&O x 3 Skin: cap refill <2 seconds Dx/Plan - Plan Plan: This is a 53 yo male with a pmh of HTN, DM2, CAD with CABG, CKD Syncope -Monitor on tele, no events overnight -pending echo -AICD interrogation reveals no events in the last month Atypical chest pain, reproducible -Negative stress on 11/2018 -Troponins barely elevated JUANCHO on CKD -Continue fluids DM2 -Continue home meds -ACHS accuchecks, mild SSI HTN -Continue home meds, holding coreg Addendum - Attending - Attending Attestation Date/Time: 06/16/19 [id number] I personally evaluated the patient and discussed the management with Dr. Arita. I agree with the History, Examination, Assessment and Plan documented above with any addition or exceptions noted below. Asymptomatic in hospital. No events on tele. AICD interrogation unremarkable. Cards consult placed. Awaiting recommendations.
[2019-06-16] MEDS ORDERED: Nitroglycerin 0.4 MG TAB (25 Tab Bottle) SL PRN (06:57)
[2019-06-16] MEDS ORDERED: Cyclobenzaprine 10 MG TAB PO PRN (06:57)
[2019-06-16] MEDS ORDERED: ICOSAPENT ETHYL 2 GM PO SCH (09:00)
[2019-06-16] MEDS ORDERED: INSULIN DETEMIR 50 UNIT SC SCH (09:00)
[2019-06-16] MEDS: Enoxaparin Sodium 40 MG/0.4 ML SYRINGE SC SCH (09:29)
[2019-06-16] MEDS: Aspirin 325 mg Enteric Coated Tablet PO SCH (09:29)
[2019-06-16] MEDS: Insulin Glargine 50 UNITS in Pre-Filled Syringe 1 EACH SC SCH (09:30)
[2019-06-16] MEDS: Gabapentin 300 MG CAP PO SCH ×2 (09:30→20:56)
[2019-06-16] MEDS ORDERED: Midodrine HCl 5 MG TAB PO SCH (16:15)
--- NOTE | 2019-06-16 16:52 | CON ---
DATE OF CONSULTATION: HISTORY OF PRESENT ILLNESS: The patient is a pleasant 53-year-old gentleman with a long history of coronary artery disease, who presents after losing consciousness. He has previously undergone coronary artery bypass surgery x3. He has also had PTCA and stent placement. The patient was most recently admitted with atypical chest pain. The patient also has a history of known ischemic cardiomyopathy and has had placement of an AICD. The patient reports that he has had several episodes, where he gets lightheaded and dizzy yesterday. The patient was again standing, felt lightheaded, and suddenly lost consciousness. The patient also reports having persistent chest discomfort around the site of his defibrillator. The patient denies having any dyspnea. The patient states he has been compliant with his medications. PAST MEDICAL HISTORY: Significant for: 1. Ischemic cardiomyopathy. 2. Coronary artery disease. 3. Diabetes mellitus. 4. Hypertension. 5. Renal failure. PAST SURGICAL HISTORY: He had knee surgery and coronary artery bypass surgery. SOCIAL HISTORY: Nonsmoker. FAMILY HISTORY: No strong family history of heart disease. PHYSICAL EXAMINATION: GENERAL: This is a well-developed gentleman, in no acute distress. VITAL SIGNS: Blood pressure when he was lying down was 128/77, standing was 92/60. NECK: No jugular venous distention. LUNGS: Clear to auscultation. HEART: Regular rate and rhythm. Normal S1 and S2. ABDOMEN: Distended. EXTREMITIES: Show no edema. VASCULAR: Radial pulses 2+. LABORATORY RESULTS: White blood cell count 6.4, hemoglobin 12.5, hematocrit 35.8. Glucose 218, sodium 137, potassium 4.0, chloride 108, bicarbonate 23, BUN 28, creatinine 2.3. Troponin 0.023. His EKG revealed normal sinus rhythm, left axis deviation, Q waves suggestive of previous inferior infarct. IMPRESSION: 1. Syncope, most likely secondary to orthostatic hypotension. 2. History of coronary artery bypass surgery. 3. History of ischemic cardiomyopathy. 4. History of percutaneous transluminal coronary angioplasty and stent placement. 5. Diabetes mellitus. 6. Chronic renal failure. This gentleman presents with syncopal episode. He states that all his previous episodes of lightheadedness and syncope are while standing. I checked the orthostatic blood pressures, and he is extremely orthostatic. The patient will be started on midodrine. We will discontinue his Coreg. We will follow this patient with you through his hospitalization. Job ID: [id number]
[2019-06-16] MEDS: HumaLOG 300 UNITS/3 ML VIAL SC PRN (17:45)
[2019-06-16] MEDS: Rosuvastatin 20 MG TAB PO SCH (20:56)
[2019-06-16] MEDS: Midodrine HCl 5 MG TAB PO SCH (20:56)
[2019-06-16] MEDS: Fenofibrate Nanocrystallized 145 MG TAB PO SCH (20:56)
[2019-06-16] MEDS ORDERED: HumaLOG 300 UNITS/3 ML VIAL SC PRN (22:10)
--- NOTE | 2019-06-17 06:32 | PDOC.FM ---
- Subjective Subjective: Pt states he has had some headache this morning. He states his chest pain is better. He denies SOB or presyncope. - Objective MAR Reviewed: Yes Vital Signs & Weight: Vital Signs (12 hours) Temp Pulse Resp BP BP Pulse Ox 06/17/19 04:32 78 18 129/77 100 06/16/19 23:37 85 18 111/72 98 06/16/19 19:12 97.8 F 84 20 132/79 98 Weight Weight 80.785 kg I&O: 06/15/19 06/16/19 06/17/19 06:59 06:59 06:59 Intake Total 240 960 Output Total 675 2600 Balance -435 -1640 Result Diagrams: 06/16/19 03:29 06/16/19 03:29 Phys Exam - Physical Examination Constitutional: NAD HEENT: moist MMs Neck: no JVD Respiratory: no wheezing, clear to auscultation bilateral Cardiovascular: RRR, no significant murmur Gastrointestinal: soft, non-tender, no distention, positive bowel sounds Musculoskeletal: no edema, pulses present Neurological: moves all 4 limbs Psychiatric: A&O x 3 Skin: cap refill <2 seconds Dx/Plan - Plan Plan: This is a 53 yo male with a pmh of HTN, DM2, CAD with CABG, CKD Syncope due to orthostasis -Monitor on tele, no events overnight -Echo shows EF 35-40%, hypokinetic motion of the inferior wall -AICD interrogation reveals no events in the last month -Starting midodrine per Dr. Devine Atypical chest pain, reproducible -Negative stress on 11/2018 -Troponins barely elevated JUANCHO on CKD, improving -Continue fluids DM2 -Continue home meds -ACHS accuchecks, mild SSI HTN -Continue home meds Likely home today Addendum - Attending - Attending Attestation Date/Time: 06/17/19 1122 I personally evaluated the patient and discussed the management with Dr. Arita I agree with the History, Examination, Assessment and Plan documented above with any addition or exceptions noted below. Remained orthostatic this morning. Midodrine added by cards. appreciate recs. Upgrade to inpatient today and monitor overnight. Likely d/c tomorrow.
[2019-06-17] MEDS: Midodrine HCl 5 MG TAB PO SCH ×3 (09:06→20:57)
[2019-06-17] MEDS: Insulin Glargine 50 UNITS in Pre-Filled Syringe 1 EACH SC SCH (09:06)
[2019-06-17] MEDS: Aspirin 325 mg Enteric Coated Tablet PO SCH (09:07)
[2019-06-17] MEDS: Gabapentin 300 MG CAP PO SCH ×2 (09:07→20:57)
[2019-06-17] MEDS: Enoxaparin Sodium 40 MG/0.4 ML SYRINGE SC SCH (09:07)
[2019-06-17] MEDS: HumaLOG 300 UNITS/3 ML VIAL SC PRN (13:21)
--- NOTE | 2019-06-17 13:39 | CON ---
DATE OF CONSULTATION: 06/17/2019 This is Astrid Rossi NP dictating a report for Reji Fierro MD. REASON FOR CONSULTATION: Orthostatic hypotension, syncope, and ICD management. HISTORY OF PRESENT ILLNESS: Mr. Durham is a 53-year-old gentleman with extensive history of coronary artery disease, who presented to the hospital after loss of consciousness. He was at home cooking in the kitchen and was quite warm. He began to have some left chest pain and left arm tingling, at which point he took his p.r.n. nitroglycerin. He laid down and subsequently passed out. He denies any heart racing or palpitations preceding his passing out episode. He denied any stroke or stroke-like symptoms. He reports having these chest pain episodes fairly frequently and often has dizziness after he takes his nitroglycerin, but has not passed out before. Since being hospitalized, blood pressures have been checked and he is found to be strongly orthostatic and his Coreg was discontinued. He was then placed on midodrine. His ICD was interrogated and EP consultation regarding his ICD and his syncopal episodes was requested. Mr. Durham is currently feeling weak, lying in the bed, but otherwise he is without complaint at this time. REVIEW OF SYSTEMS: A 12-point review of systems is negative except that listed above in HPI. PAST MEDICAL HISTORY: 1. Chronic systolic congestive heart failure. a. Ischemic cardiomyopathy with coronary artery disease and bypass x3 vessels. b. LVEF 30% to 35%, partially recovered to 40% to 45% by echo on 12/10/2018, mild MR, mild TR. 2. Dual-chamber ICD implant, status post generator change in September 2017. 3. Chronic kidney disease. 4. Coronary artery disease. 5. Hypertension. 6. Type 2 diabetes. 7. History of multisubstance abuse and alcohol in the past. ALLERGIES: NONE NOTED. HOME MEDICATIONS: Include; 1. Vascepa 2 g daily. 2. Gabapentin 600 mg b.i.d. 3. Fenofibrate 1 tablet at bedtime. 4. Flexeril 10 mg p.o. t.i.d. p.r.n. 5. Coreg 3.125 mg p.o. b.i.d. 6. Aspirin 81 mg daily. 7. Crestor 20 mg daily. 8. Nitroglycerin 0.4 mg sublingual q.5 hours p.r.n. 9. Levemir 50 units subcu daily. FAMILY HISTORY: No strong family history of heart disease. SOCIAL HISTORY: Nonsmoker, past history of multisubstance abuse and alcohol abuse, reportedly cocaine. OBJECTIVE: VITAL SIGNS: Temperature 97.6, pulse 76, blood pressure 115/74, respirations 16, and oxygen is 98% on room air. GENERAL: The patient is alert and oriented. Speech is clear. Affect is appropriate. He is in no apparent distress at time of exam. He is resting comfortably in bed. HEENT: He is normocephalic and atraumatic. Sclerae are anicteric. EOMs are intact. Oral mucosa is moist and pink with adequate dentition. NECK: Supple without jugular venous distention. There is no lymphadenopathy. Trachea is midline. LUNGS: Clear to auscultation bilaterally. HEART: Rate is irregularly irregular with crisp S1 and S2. PMI is nonpalpable. A left precordial device is palpable. Site is without reaction. ABDOMEN: Soft and nontender without palpable masses. EXTREMITIES: Warm and dry to touch. Well perfused without clubbing, cyanosis, or edema. NEUROLOGIC: Grossly intact and nonfocal. Gait was not assessed. LABORATORY DATA: Orthostatic assessment; supine blood pressure 132/70, seated blood pressure 100/58, standing 70/40. Telemetry and EKGs all personally reviewed, shows sinus rhythm. DEVICE CHECK: The patient has a [employer] Evera XT DR dual-chamber ICD, status post generator in September of 2017. Lead impedances are stable. Capture thresholds are stable. No arrhythmia events have been seen since time of generator change. No atrial fibrillation or ventricular arrhythmias. OptiVol is stable and below threshold does not indicate fluid overload. Normal functioning device. No programing changes are indicated. IMPRESSION: 1. Orthostatic hypotension. 2. Coronary artery disease with prior bypass. 3. Angina requiring nitrates. 4. Dual-chamber ICD with normal operation. PLAN AND RECOMMENDATIONS: Mr. Durham had an extensive medical history including quite severe coronary artery disease with prior bypass. After speaking with him and his family extensively, he was having chest pain episode at home and was also working in the hot kitchen, cooking. He already struggles with low blood pressure and the heat from the environment in addition to taking sublingual nitroglycerin likely exacerbated his already existent hypotension causing him to pass out. I agree with the plan for stopping his blood pressure lowering agents and adding midodrine for support. This will likely require some titration to find an effective therapeutic dose for him. An alternative agent could be Florinef if he does not tolerate midodrine. I also discussed supportive measures including support stockings and preventing dehydration. With his pre-existing heart failure will be a delicate balance to stay hydrated without going into fluid overload and we discussed signs and symptoms of fluid retention with his heart failure. His ICD is functioning normally. No arrhythmias have been detected. We will defer Cardiology evaluation regarding the chest pain to his collar separator. We will reach out to Mr. Durham and see him back in clinic, although he has not followed up since the time of his generator change. Thank you for allowing me to participate in the care of this patient. Job ID: [id number]
[2019-06-17] MEDS: Rosuvastatin 20 MG TAB PO SCH (20:57)
[2019-06-17] MEDS: Fenofibrate Nanocrystallized 145 MG TAB PO SCH (20:57)
[2019-06-18] MEDS: HumaLOG 300 UNITS/3 ML VIAL SC PRN ×2 (05:39→11:56)
--- NOTE | 2019-06-18 08:01 | PDOC.FM ---
- Subjective Subjective: pt resting comfortably in bed, denies presyncope, weakness, or chest pain. - Objective Vital Signs & Weight: Vital Signs (12 hours) Temp Pulse Resp BP Pulse Ox 06/18/19 04:01 98.0 F 85 16 102/67 98 06/17/19 20:00 100 Weight Weight 80.785 kg I&O: 06/17/19 06/18/19 06/19/19 06:59 06:59 06:59 Intake Total 960 720 Output Total 2600 Balance -1640 720 Result Diagrams: 06/16/19 03:29 06/16/19 03:29 Phys Exam - Physical Examination Constitutional: NAD HEENT: moist MMs Neck: no JVD Gastrointestinal: no distention Musculoskeletal: no edema Neurological: moves all 4 limbs Skin: no rash Dx/Plan (1) Syncope Code(s): R55 - SYNCOPE AND COLLAPSE Status: Acute (2) JUANCHO (acute kidney injury) Code(s): N17.9 - ACUTE KIDNEY FAILURE, UNSPECIFIED Status: Acute (3) Chest pain Code(s): R07.9 - CHEST PAIN, UNSPECIFIED Status: Acute Qualifiers: Chest pain type: other chest pain Qualified Code(s): R07.89 - Other chest pain; R07.8 - Other chest pain (4) Diabetes mellitus Code(s): E11.9 - TYPE 2 DIABETES MELLITUS WITHOUT COMPLICATIONS Status: Acute - Plan Plan: Syncope due to orthostasis -Monitor on tele, no events overnight -Echo shows EF 35-40%, hypokinetic motion of the inferior wall -AICD interrogation reveals no events in the last month -Starting midodrine per Dr. Devine Atypical chest pain, reproducible -Negative stress on 11/2018 -Troponins barely elevated JUANCHO on CKD, improving -near baseline, dc fluids DM2 -Continue home meds -ACHS accuchecks, mild SSI HTN -Continue home meds Dispo: Likely home today with BPs in nl range. Addendum - Attending - Attending Attestation Date/Time: 06/18/19 1115 I personally evaluated the patient and discussed the management with Dr. Quintana. I agree with the History, Examination, Assessment and Plan documented above with any addition or exceptions noted below. Still experiencing significant orthostatic symptoms. EP to see outpatient. Midodrine increased today. Will observe today with possible d/c tomorrow.
[2019-06-18] MEDS: Midodrine HCl 5 MG TAB PO SCH ×2 (09:48→15:51)
[2019-06-18] MEDS: Gabapentin 300 MG CAP PO SCH (09:48)
[2019-06-18] MEDS: Insulin Glargine 50 UNITS in Pre-Filled Syringe 1 EACH SC SCH (09:48)
[2019-06-18] MEDS: Aspirin 325 mg Enteric Coated Tablet PO SCH (09:48)
[2019-06-18] MEDS: Enoxaparin Sodium 40 MG/0.4 ML SYRINGE SC SCH (09:49)
--- NOTE | 2019-06-18 10:45 | PDOC.EP ---
- Subjective Date: 06/18/19 Time: 10:43 Interval History: follow up for sycnope and collapse attributed to orthostatic hyptension exacerbated by oral nitrates. No further syncopal episodes. BP stable with addition of midodrine. Pt feels weak but otherwise has no concerns/complaints . - Review of Systems Constitutional: denies: chills, fever, malaise, sweats, weakness, other Respiratory: denies: cough, dry, hemoptysis, pleuritic pain, shortness of breath , SOB with excertion, sputum, wheezing Cardiology: denies: chest pain, heart racing, light headedness, palpitations, passing out - Objective Allergies/Adverse Reactions: Allergies Allergy/AdvReac Type Severity Reaction Status Date / Time No Known Drug Allergies Allergy Verified 05/30/19 21:17 Current Medications Aspirin (Ecotrin) 325 mg PO DAILY [facility] Last Admin: 06/18/19 09:48 Dose: 325 mg Calcium Carbonate (Tums) 1,000 mg PO Q4H PRN PRN Reason: Heartburn or Indigestion Cyclobenzaprine HCl (Flexeril) 10 mg PO TID PRN PRN Reason: Pain Dextrose/Water (Dextrose 50%) 25 gm SLOW IVP PRN PRN PRN Reason: Hypoglycemia Enoxaparin Sodium (Lovenox) 40 mg SC 0900 [facility] Last Admin: 06/18/19 09:49 Dose: 40 mg Fenofibrate (Tricor) 145 mg PO HS [facility] Last Admin: 06/17/19 20:57 Dose: 145 mg Gabapentin (Neurontin) 600 mg PO BID [facility] Last Admin: 06/18/19 09:48 Dose: 600 mg Glucagon (Glucagon) 1 mg IM PRN PRN PRN Reason: Hypoglycemia Dextrose/Water (D5w) 1,000 mls @ 0 mls/hr IV .Q0M PRN PRN Reason: Hypoglycemia Insulin Glargine 50 units/ (Miscellaneous Medication) 0.5 mls @ 0 mls/hr SC QAM [facility] Last Admin: 06/18/19 09:48 Dose: 0.5 mls Insulin Human Lispro (Humalog) 0 units SC .MODERATE SLIDING SC PRN PRN Reason: Moderate Correctional Scale Last Admin: 06/18/19 05:39 Dose: 4 units Insulin Human Lispro (Humalog) 0 units SC .BEDTIME SLIDING SC PRN; Protocol PRN Reason: BEDTIME SLIDING SCALE Last Admin: 06/16/19 22:23 Dose: 3 unit Midodrine (Proamatine) 10 mg PO TID [facility] Last Admin: 06/18/19 09:48 Dose: 10 mg Nitroglycerin (Nitrostat) 0.4 mg SL Q5MIN PRN PRN Reason: Chest Pain (Icosapent Ethyl 2 (Gm)) 2 gm PO DAILY [facility] Rosuvastatin Calcium (Crestor) 20 mg PO HS [facility] Last Admin: 06/17/19 20:57 Dose: 20 mg Sodium Chloride (Flush - Normal Saline) 10 ml IVF Q12HR [facility] Last Admin: 06/18/19 09:49 Dose: 10 ml Vital Signs & Weight: Vital Signs Temp Pulse Resp BP Pulse Ox 06/18/19 08:53 100 06/18/19 07:33 97.3 F L 92 16 109/72 100 06/18/19 04:01 98.0 F 85 16 102/67 98 Weight 178 lb 1.6 oz I/O: I/O 06/17/19 06/18/19 06/19/19 06:59 06:59 06:59 Intake Total 960 720 Output Total 2600 Balance -1640 720 - Physical Exam General: alert & oriented x3, appears well, no apparent distress, speech clear, affect appropriate HEENT: mucus membranes moist, normocephaly Neck: supple neck, midline trachea, no JVD/HJR, no lymphadenopathy Cardiology: regular rate and rhythm, lateral displaced Lungs: clear to auscultation, normal exam, no wheeze, rales, rhonchi Neurology: cranial nerve 2-12 intact, grossly intact Abdomen: active bowel sounds, soft, HJR negative - Labs Result Diagrams: 06/16/19 03:29 06/16/19 03:29 - EKG Interpretation EKG Method: Telemetry EKG shows: Sinus rhythm - Assessment/Plan Assessment/Plan: 1. Syncope and collapse - orthostatic: in the setting of vasodilation from hot environment and taking oral nitrates for chest pain. - coreg stopped. on midodrine, per cardiology 2. Chest pain - per cardiology 3. Dual chamber ICD - normal function. no arrhythmias on interrogation. Fluid levels stable Caution with oral nitrates and pre-existing tendency for hypotension. Agree with midodrine addition. Amy is a possible alternative if midodrine not tolerated although this should be used with caution with his heart failure for possible fluid retention. May titrate midodrine as high as 10mg PO TID if needed. Pt has never followed up for ICD. follow up appt scheduled in DC instructions.
[2019-06-18 15:46] VITALS: BP 122/76; TEMP 98.6
== END 2019-06-18 16:25 | disposition home or self-care (01) | DRG 312 ==
LOC: ERS 20:15 → 2SW 23:53 → OBSVTOIN 06-17 10:16
PROVIDERS: ADMIT Internal Medicine; ATTEND Family Medicine
PROC: 4B02XTZ Measurement of Cardiac Defibrillator, External Approach (ICD-10-PCS; principal; 2019-06-16)
DX: I95.1 Orthostatic hypotension (principal); N17.9 Acute kidney failure, unspecified; I13.0 Hypertensive heart and chronic kidney disease with heart failure and stage 1 through stage 4 chronic kidney disease, or unspecified chronic kidney disease; I50.22 Chronic systolic (congestive) heart failure; R07.9 Chest pain, unspecified; Z95.810 Presence of automatic (implantable) cardiac defibrillator; Z95.1 Presence of aortocoronary bypass graft; E11.22 Type 2 diabetes mellitus with diabetic chronic kidney disease; N18.3 Chronic kidney disease, stage 3 (moderate); Z79.4 Long term (current) use of insulin; E11.65 Type 2 diabetes mellitus with hyperglycemia; I25.10 Atherosclerotic heart disease of native coronary artery without angina pectoris; J44.9 Chronic obstructive pulmonary disease, unspecified; Z95.5 Presence of coronary angioplasty implant and graft; E78.5 Hyperlipidemia, unspecified
CPT/HCPCS: 36415; 36416; 70450; 71045; 80048; 80053; 83690; 83880; 84484; 85025; 85610; 85730; 93005; 93306; 94760; 96361; 96374; J1650; J1815

== ENCOUNTER 2019-07-19 19:06 | Emergency (ER) | payer MEDICARE, MEDICAID | END 2019-07-19 20:59 | disposition home or self-care (01) | LOC: ERS 19:06 | DX: E11.65 Type 2 diabetes mellitus with hyperglycemia (principal); I25.10 Atherosclerotic heart disease of native coronary artery without angina pectoris; I25.2 Old myocardial infarction; E78.5 Hyperlipidemia, unspecified; J44.9 Chronic obstructive pulmonary disease, unspecified; I10 Essential (primary) hypertension; Z87.891 Personal history of nicotine dependence; Z79.4 Long term (current) use of insulin; Z79.899 Other long term (current) drug therapy | CPT/HCPCS: 36416; 93005; 96360 ==

== ENCOUNTER 2019-08-27 11:39 | Inpatient (IN) | payer MEDICARE, MEDICAID ==
--- NOTE | 2019-08-27 12:31 | RAD ---
THREE VIEWS LEFT FOOT: COMPARISON: 12/10/2018. HISTORY: Foot care. Prior amputations of the 2nd and 3rd toes. FINDINGS: Three views of the left foot show the patient to be status post amputation of the 2nd and 3rd toes th rough the distal metatarsals. An overlying dressing obscures fine bony and soft tissue detail. Vasc ular calcifications are seen. There is questionable irregularity of the distal aspect of the 4th met atarsal. IMPRESSION: Possible abnormal appearance of the bone in the distal 4th metatarsal. POS: TPC
[2019-08-27 12:45] LABS: #Basophils 0.1 thou/uL (0.0-0.2); #Eosinphils 0.2 thou/uL (0.0-0.7); #Lymphocytes 2.2 thou/uL (1.20-3.40); #Monocytes 0.3 thou/uL (0.11-0.59); #Neutrophils 5.4 thou/uL (1.40-6.50); %Basophils 0.7 % (0.0-1.0); %Eosinophils 2.3 % (0.0-10.0); %Lymphocytes 26.5 % (21.0-51.0); %Monocytes 4.1 % (0.0-10.0); %Neutrophils 66.3 % (42.0-75.0); Hemoglobin 12.6 g/dL (14.0-18.0); Mean Corpuscular HGB CONC 32.6 g/dL (32.0-36.0); Mean Corpuscular Hemoglobin 26.4 pg (27.0-31.0); Mean Corpuscular Volume 81.1 fL (78.0-98.0); Mean Platelet Volume 7.4 fL (7.4-10.4); Platelet Count 580 thou/uL (130-400); RBC Distribution Width 12.9 % (11.5-14.5); Red Blood Cell (RBC) Count 4.79 mill/uL (4.70-6.10); White Blood Cell (WBC) Count 8.2 thou/uL (4.8-10.8)
[2019-08-27 13:15] LABS: ALT (SGPT) 12 U/L (8-55); AST (SGOT) 12 U/L (5-34); Alkaline Phosphatase 37 U/L (40-110); Anion Gap 12 mmol/L (10-20); BUN (Urea Nitrogen) 29 mg/dL (8.4-25.7); Bilirubin, Total 0.3 mg/dL (0.2-1.2); Calc. Creatinine Clearance 0 mL/min (70-130); Calcium 10.1 mg/dL (7.8-10.44); Carbon Dioxide 24 mmol/L (22-29); Chloride 102 mmol/L (98-107); Estimated GFR-MDRD 23; Globulin 4.5 g/dL (2.4-3.5); Glucose 237 mg/dL (70-105); Protein, Total 8.5 g/dL (6.0-8.3); Sodium 133 mmol/L (136-145)
[2019-08-27] MEDS ORDERED: cefTRIAXone\\ROCEPHIN 2 GM VIAL ONE (14:28)
--- NOTE | 2019-08-27 14:38 | PDOC.FPRHP ---
- History of Present Illness Chief Complaint: L chronic foot ulcer History of Present Illness: Pt is a pleasant 53-yo male w/ PMHx of T2DM and CAD here for worsening L foot wound infection. Wound was incurred a few weeks ago when he hit his foot on bathtub. It has not healed since then. He has seen podiatry and completed a 7- day course of bactrim and cephalexin simultaneously, finishing abx two days ago. He followed up w/ podiatry today, and his sand drier incised and drained the wound, expressing purulent material. She sent the patient to the ER. Pt reports foot pain and has been using a wheelchair since it hurts to walk. + L foot swelling. Denies fever, chills, nausea, vomiting, diarrhea, dysuria, and systemic symptoms. ED Course: Given Vancomycin, Rocephin in ED. Zosyn was not given due to concern for pt's CKD and risk of kidney injury from vanc+zosyn combination. L foot xray showing abnormality of 4th metatarsal concerning for possible osteomyelitis. Blood cultures drawn prior to abx. - Allergies/Adverse Reactions Allergies Allergy/AdvReac Type Severity Reaction Status Date / Time No Known Drug Allergies Allergy Verified 05/30/19 21:17 - Home Medications Medication Instructions Recorded Confirmed Type Gabapentin 600 mg PO BID 12/02/13 08/27/19 History Rosuvastatin [Crestor] 20 mg PO HS #0 tab 12/29/14 08/27/19 Rx Nitroglycerin 0.4 mg SL Q5MIN PRN 03/02/15 08/27/19 History Aspirin Chewable [Aspirin Chewable 81 mg PO DAILY tab 11/28/18 08/27/19 Rx Tablet] Fenofibrate Nanocrystallized 1 tab PO HS 12/11/18 08/27/19 History [Fenofibrate] Carvedilol [Coreg] 3.125 mg PO BID 03/28/19 08/27/19 History Icosapent Ethyl [Vascepa] 2 gm PO DAILY 03/28/19 08/27/19 History Cyclobenzaprine [Flexeril] 10 mg PO TID PRN #30 tab 05/31/19 08/27/19 Rx Insulin Detemir [Levemir Flextouch] 50 units SC DAILY 06/16/19 08/27/19 History Midodrine HCl [ProAmatine] 10 mg PO TID #90 tab 06/18/19 08/27/19 Rx - History PMHx: Hx [place] x2, CAD (Dr. Devine), T2DM, CKD (Dr. Barrios), history of HTN however is now treated for Hypotension. PSHx: L knee surgery, hernia repair, CABG, colonoscopy reported normal per patient, L 2nd and 3rd metatarsal amputation, bilateral cataract surgery a few months ago FHx: - Mother: T1DM - Daughter: T1DM Social: - previous smoker, 20 years 2 ppd - previous alcohol intake, heavy consumption - denies other illicit drugs. - Lives w/ his daughter in [place]. - Does not work: disability. - Review of Systems General: denies: fever/chills, weight/appetite/sleep changes Eyes: denies: vision changes ENT: reports: other (some sneezing lately) Respiratory: denies: cough, shortness of breath Cardiovascular: denies: chest pain Gastrointestinal: denies: nausea, vomiting, diarrhea, abdominal pain Genitourinary: denies: dysuria Skin: reports: other (mild erythema to L dorsal foot.). denies: itching Musculoskeletal: reports: pain, tenderness, swelling (L foot). denies: arthritis/arthralgias Neurological: reports: numbness (and tingling of b/l LE (neuropathy)). denies: weakness Psychological: denies: anxiety - Vital signs BP: 123/71, Pulse: 76, Resp: 18, Temp: 97.8, Pain: 10, O2 sat: 100, Time: 2019 13:58. - Physical Exam Constitutional: NAD, awake, alert and oriented -Constitutional: happily eating a hamburger HEENT: normocephalic and atraumatic, PERRLA, conjunctiva clear, no scleral icterus, normal nasal mucosa, MMM, oropharynx clear Neck: supple, trachea midline, no LAD Chest: other (sternotomy scar well healed without dehiscence) Heart: RRR, normal S1/S2, no murmurs/rubs/gallops, pulses present (DP 1+ bilaterally) Lungs: CTAB, no respiratory distress Abdomen: soft, non-tender, bowel sounds present, no masses/distention Musculoskeletal: normal structure Skin: no jaundice -Skin: L foot incision approx 2 cm long over 4th MTP joint, cavity approx 1x2 cm probed w/ q-tip. Difficult to assess if probing bone vs fascial layer since region is very small, no bone visualized in cavity, serosanguinous drainage expressed, wound packed w/ gauze strip. TTP and erythema surrounding 4th metatarsal. Linear scab wound demarcating area where 2nd/3rd toes would have been. R foot appears normal. Heme/Lymphatic: no purpura, no petechia Psychiatric: normal mood and affect, intact recent and remote memory FMR H&P: Results - Labs Result Diagrams: 08/27/19 12:33 08/27/19 12:33 Lab results: WBC 8.2 thou/uL (4.8-10.8) 08/27/19 12:33 Hgb 12.6 g/dL (14.0-18.0) L 08/27/19 12:33 Hct 38.8 % (42.0-52.0) L 08/27/19 12:33 MCV 81.1 fL (78.0-98.0) 08/27/19 12:33 Plt Count 580 thou/uL (130-400) H 08/27/19 12:33 Neutrophils % 66.3 % (42.0-75.0) 08/27/19 12:33 Sodium 133 mmol/L (136-145) L 08/27/19 12:33 Potassium 5.0 mmol/L (3.5-5.1) 08/27/19 12:33 Chloride 102 mmol/L (98-107) 08/27/19 12:33 Carbon Dioxide 24 mmol/L (22-29) 08/27/19 12:33 BUN 29 mg/dL (8.4-25.7) H 08/27/19 12:33 Creatinine 2.90 mg/dL (0.7-1.3) H 08/27/19 12:33 Glucose 237 mg/dL (70-105) H 08/27/19 12:33 Lactic Acid 1.5 mmol/L (0.5-2.2) 08/27/19 12:33 Calcium 10.1 mg/dL (7.8-10.44) 08/27/19 12:33 Total Bilirubin 0.3 mg/dL (0.2-1.2) 08/27/19 12:33 AST 12 U/L (5-34) 08/27/19 12:33 ALT 12 U/L (8-55) 08/27/19 12:33 Alkaline Phosphatase 37 U/L (40-110) L 08/27/19 12:33 Serum Total Protein 8.5 g/dL (6.0-8.3) H 08/27/19 12:33 Albumin 4.0 g/dL (3.5-5.0) 08/27/19 12:33 - Radiology Interpretation Other Additional comment: xray of L foot showing concern of bone deformity over 4th metatarsal FMR H&P: A/P - Problem List (1) COPD (chronic obstructive pulmonary disease) Current Visit: No Status: Chronic (2) Diabetic foot ulcer associated with type 2 diabetes mellitus Current Visit: No Status: Acute Code(s): E11.621 - TYPE 2 DIABETES MELLITUS WITH FOOT ULCER; L97.509 - NON-PRESSURE CHRONIC ULCER OTH PRT UNSP FOOT W UNSP SEVERITY Qualifiers: Diabetic foot ulcer location: midfoot Laterality: left Non-pressure ulcer stage: unspecified non-pressure ulcer stage Qualified Code(s): E11.621 - Type 2 diabetes mellitus with foot ulcer; L97.429 - Non-pressure chronic ulcer of left heel and midfoot with unspecified severity (3) Coronary artery disease Current Visit: No Status: Chronic Code(s): I25.10 - ATHSCL HEART DISEASE OF [place] CORONARY ARTERY W/O ANG PCTRS Qualifiers: Coronary Disease-Associated Artery/Lesion type: bypass graft [place] vs. transplanted heart: [place] heart Associated angina: without angina Qualified Code(s): I25.810 - Atherosclerosis of coronary artery bypass graft(s) without angina pectoris Comment: Continue on Aspirin and BB. (4) Diabetes mellitus, type II Current Visit: No Status: Chronic Comment: Pt is on 100units levemir BID, will do only 50 untis Sc today, high risk for hypoglycemia. (5) Hyperlipidemia Current Visit: No Status: Chronic Code(s): E78.5 - HYPERLIPIDEMIA, UNSPECIFIED Qualifiers: Hyperlipidemia type: mixed hyperlipidemia Qualified Code(s): E78.2 - Mixed hyperlipidemia Comment: Continue on Statins (6) Hypertension Current Visit: No Status: Chronic Code(s): I10 - ESSENTIAL (PRIMARY) HYPERTENSION Qualifiers: Hypertension type: essential hypertension Qualified Code(s): I10 - Essential (primary) hypertension - Plan 53-yo M w/ Hx of T2DM and other comorbidities admitted for: L foot wound and L foot cellulitis with possible abscess s/p I&D associated with diabetes - I&D by podiatry outpatient w/ purulent material, possible abscess given that cavitary area now present on exam - L foot xray showing bone changes concerning for osteomyelitis - vanc & ceftriaxone in ER. Will continue Vancomycin and Cefepime. Pharmacy to dose vancomycin, renal dosing. - cbc in am - elevated esr and crp - encourage oral fluid intake - NM 3 phase bone scan to be taken on Friday to rule out osteomyelitis. - wound care consult. PT and OT T2DM, uncontrolled - recent cataract surgery. 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 - continue home lantus doses - humalog moderate SSI - bmp in AM CKD - appears to be at baseline GFR and creatinine. Sees Dr. Barrios outpatient. - Will monitor renal function in AM CAD CHF w/ pacemaker - reported pacemaker is not MRI compatible - continue home medications Hypotension - possibly 2/2 to CKD, previously had hx of HTN. - continue midodrine Code: Full IVF: SL Diet: CC VTE ppx: heparin Gi ppx: none Abx: vancomycin and cefepime renally dosed for skin infections Disposition/LOS: admit to inpatient medical. LOS > 48H expected. FMR H&P: Upper Level - Plan Date/Time: 08/27/19 0372 I, [], have evaluated this patient and agree with findings/plan as outlined by international account representative resident. Pertinent changes/additions are listed here. Addendum - Attending - Attending Attestation Date/Time: 08/27/19 3363 I personally evaluated the patient and discussed the management with Dr. Dominguez /Kaleb. I agree with the History, Examination, Assessment and Plan documented above with any addition or exceptions noted below. Patient is 53-year-old male with history of chronic renal disease and diabetes who presents with foot lesion. Patient has a history of foot digit amputation due to osteomyelitis. He reports several weeks of increased swelling and redness in the foot. He was seen by his sand drier today who performed incision and drainage of an abscess and sent the patient to the ED for further evaluation. He has already been on a course of oral antibiotics. Overall patient s blood work stable, he does have an elevated ESR and CRP. His exam is pertinent for an incised area on the bottom of his foot with some mild serous drainage. Patient has mild tenderness in the region. Patient will be admitted for diabetic foot infection and abscess. We will start cefepime and vancomycin. Consult wound care. He will also need a bone scan to evaluate for osteomyelitis of the digit. Possible surgical consult pending that result. Continue other chronic medications for chronic conditions.
[2019-08-27] MEDS ORDERED: Ondansetron ODT 4 MG TAB PO PRN (15:23)
[2019-08-27] MEDS ORDERED: Acetaminophen 325 MG TAB PO PRN (15:23)
[2019-08-27] MEDS ORDERED: Dextrose 50% Abboject 50 ML SYRINGE SLOW IVP PRN (15:23)
[2019-08-27] MEDS ORDERED: Ondansetron PF 4 MG/2 ML Vial IVP PRN (15:23)
[2019-08-27] MEDS ORDERED: Dextrose 5% in Water 1,000 ML IV PRN (15:23)
[2019-08-27] MEDS ORDERED: Nitroglycerin 0.4 MG TAB (25 Tab Bottle) SL PRN (15:58)
[2019-08-27] MEDS ORDERED: Cyclobenzaprine 10 MG TAB PO PRN (15:58)
[2019-08-27 16:27] VITALS: BMI 25.8
[2019-08-27] MEDS: Cefepime 1 GM in Sodium Chloride 0.9% 100 ML IVPB SCH (17:21)
[2019-08-27] MEDS: Rosuvastatin 20 MG TAB PO SCH (20:38)
[2019-08-27] MEDS: Carvedilol 3.125 MG TAB PO SCH (20:39)
[2019-08-27] MEDS: Midodrine HCl 5 MG TAB PO SCH (20:39)
[2019-08-27] MEDS: Fenofibrate Nanocrystallized 145 MG TAB PO SCH (20:39)
[2019-08-27] MEDS: Gabapentin 300 MG CAP PO SCH (20:40)
[2019-08-27] MEDS: Heparin 5,000 UNITS/ML VIAL SC SCH (20:41)
[2019-08-27] MEDS: HumaLOG 300 UNITS/3 ML VIAL SC PRN (20:41)
[2019-08-27] MEDS ORDERED: Insulin Glargine 25 UNITS in Pre-Filled Syringe SC SCH (21:00)
--- NOTE | 2019-08-28 05:22 | PDOC.FM ---
- Subjective Subjective: Patient is feeling well this morning. Says pain in L foot is moderately controlled. Has not asked for Tylenol. Otherwise, ate last night without problem. - Objective MAR Reviewed: Yes Vital Signs & Weight: Vital Signs (12 hours) Temp Pulse Resp BP BP Pulse Ox 08/28/19 05:07 97.8 F 86 16 110/71 97 08/28/19 00:10 98.5 F 85 16 117/73 97 08/27/19 19:31 98.4 F 85 18 147/87 H 99 Weight Weight 72.6 kg Result Diagrams: 08/28/19 06:06 08/28/19 06:05 Phys Exam - Physical Examination Constitutional: NAD Respiratory: clear to auscultation bilateral Cardiovascular: RRR Gastrointestinal: soft, non-tender, no distention, positive bowel sounds L foot wrapped in gauze, dressing not disturbed Psychiatric: normal affect Dx/Plan (1) COPD (chronic obstructive pulmonary disease) Status: Chronic (2) Diabetic foot ulcer associated with type 2 diabetes mellitus Code(s): E11.621 - TYPE 2 DIABETES MELLITUS WITH FOOT ULCER; L97.509 - NON- PRESSURE CHRONIC ULCER OTH PRT UNSP FOOT W UNSP SEVERITY Status: Acute Qualifiers: Diabetic foot ulcer location: midfoot Laterality: left Non-pressure ulcer stage: unspecified non-pressure ulcer stage Qualified Code(s): E11.621 - Type 2 diabetes mellitus with foot ulcer; L97.429 - Non-pressure chronic ulcer of left heel and midfoot with unspecified severity (3) Coronary artery disease Code(s): I25.10 - ATHSCL HEART DISEASE OF [place] CORONARY ARTERY W/O ANG PCTRS Status: Chronic Qualifiers: Coronary Disease-Associated Artery/Lesion type: bypass graft [place] vs. transplanted heart: [place] heart Associated angina: without angina Qualified Code(s): I25.810 - Atherosclerosis of coronary artery bypass graft(s) without angina pectoris (4) Diabetes mellitus, type II Status: Chronic (5) Hyperlipidemia Code(s): E78.5 - HYPERLIPIDEMIA, UNSPECIFIED Status: Chronic Qualifiers: Hyperlipidemia type: mixed hyperlipidemia Qualified Code(s): E78.2 - Mixed hyperlipidemia (6) Hypertension Code(s): I10 - ESSENTIAL (PRIMARY) HYPERTENSION Status: Chronic Qualifiers: Hypertension type: essential hypertension Qualified Code(s): I10 - Essential (primary) hypertension - Plan Plan: 53-yo M w/ Hx of T2DM and other comorbidities admitted for: L foot wound and L foot cellulitis with possible abscess s/p I&D associated with diabetes - I&D by podiatry outpatient w/ purulent material, possible abscess given that cavitary area now present on exam - L foot xray showing bone changes concerning for osteomyelitis - Continue vancomycin and cefepime. - encourage oral fluid intake - NM 3 phase bone scan to be taken on Friday to rule out osteomyelitis. - wound care consult. PT and OT T2DM, uncontrolled - recent cataract surgery. 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 - continue home lantus doses. Will increase lantus for better blood sugar control to encourage wound healing. - humalog moderate SSI CKD - appears to be at baseline GFR and creatinine. Sees Dr. Barrios outpatient. - Will monitor renal function CAD CHF w/ pacemaker - reported pacemaker is not MRI compatible. Placed >5 years ago. - continue home medications Hypotension - possibly 2/2 to CKD, previously had hx of HTN. - continue midodrine Code: Full IVF: SL Diet: CC VTE ppx: heparin Gi ppx: none Abx: vancomycin and cefepime renally dosed for skin infections Disposition/LOS: admit to inpatient medical. LOS > 48H expected. Addendum - Attending - Attending Attestation Date/Time: 08/28/19 1846 I personally evaluated the patient and discussed the management with Dr. Gaming. I agree with the History, Examination, Assessment and Plan documented above with any addition or exceptions noted below. Patient here for diabetic foot wound. Cultures pending. He reports improved pain. Continue Vanc and Cefepime. Wound care. Bone scan on Friday to evaluate for osteomyelitis. Pain control as needed.
[2019-08-28 06:30] LABS: #Basophils 0.1 thou/uL (0.0-0.2); #Eosinphils 0.3 thou/uL (0.0-0.7); #Monocytes 0.4 thou/uL (0.11-0.59); #Neutrophils 4.1 thou/uL (1.40-6.50); %Basophils 0.7 % (0.0-1.0); %Eosinophils 4.6 % (0.0-10.0); %Lymphocytes 29.1 % (21.0-51.0); %Monocytes 6.2 % (0.0-10.0); %Neutrophils 59.4 % (42.0-75.0); Hemoglobin 11.3 g/dL (14.0-18.0); Mean Corpuscular HGB CONC 32.4 g/dL (32.0-36.0); Mean Corpuscular Hemoglobin 26.2 pg (27.0-31.0); Mean Corpuscular Volume 80.9 fL (78.0-98.0); Mean Platelet Volume 7.2 fL (7.4-10.4); Platelet Count 515 thou/uL (130-400); RBC Distribution Width 12.8 % (11.5-14.5); Red Blood Cell (RBC) Count 4.33 mill/uL (4.70-6.10); White Blood Cell (WBC) Count 6.9 thou/uL (4.8-10.8)
[2019-08-28 06:53] LABS: Anion Gap 12 mmol/L (10-20); BUN (Urea Nitrogen) 29 mg/dL (8.4-25.7); Calc. Creatinine Clearance 32 mL/min (70-130); Calcium 9.1 mg/dL (7.8-10.44); Carbon Dioxide 22 mmol/L (22-29); Chloride 105 mmol/L (98-107); Estimated GFR-MDRD 25; Glucose 155 mg/dL (70-105); Potassium 4.5 mmol/L (3.5-5.1); Sodium 134 mmol/L (136-145)
[2019-08-28] MEDS: Carvedilol 3.125 MG TAB PO SCH ×2 (08:14→20:55)
[2019-08-28] MEDS: Aspirin Chewable 81 MG TAB PO SCH (08:14)
[2019-08-28] MEDS: Gabapentin 300 MG CAP PO SCH ×2 (08:14→20:55)
[2019-08-28] MEDS: Heparin 5,000 UNITS/ML VIAL SC SCH ×3 (08:15→20:56)
[2019-08-28] MEDS: Midodrine HCl 5 MG TAB PO SCH ×3 (08:16→20:55)
[2019-08-28] MEDS ORDERED: FLU VACC QS2019-20(6MOS UP)/PF 60 MCG/0.5 ML SYRINGE IM ONE (09:00)
[2019-08-28] MEDS: Insulin Glargine 30 UNITS in Pre-Filled Syringe SC SCH (09:55)
[2019-08-28] MEDS: Icosapent Ethyl 1 GM CAPSULE PO SCH (10:30)
[2019-08-28] MEDS: HumaLOG 300 UNITS/3 ML VIAL SC PRN ×2 (13:12→20:57)
[2019-08-28] MEDS: Cefepime 1 GM in Sodium Chloride 0.9% 100 ML IVPB SCH (16:16)
[2019-08-28 16:20] LABS: Vancomycin, Random 6.2 ug/mL (See Comment)
[2019-08-28] MEDS ORDERED: Vancomycin 1.5 GRAM/300 ML BAG 1.5 GM in Premix Bag 1 BAG IVPB SCH (18:00)
[2019-08-28] MEDS: Rosuvastatin 20 MG TAB PO SCH (20:54)
[2019-08-28] MEDS: Fenofibrate Nanocrystallized 145 MG TAB PO SCH (20:55)
[2019-08-28] MEDS: Insulin Glargine 30 UNITS in Pre-Filled Syringe 1 EACH SC SCH (20:56)
--- NOTE | 2019-08-29 05:47 | PDOC.FM ---
- Subjective Subjective: Pt is feeling well. Reports walking w/ his walker and no pain in his foot. Denies fever. Per PT note, pt ambulated 200 ft w/ rolling walker. - Objective MAR Reviewed: Yes Vital Signs & Weight: Vital Signs (12 hours) Temp Pulse Resp BP Pulse Ox 08/28/19 20:06 97.6 F 78 16 142/84 H 96 08/28/19 19:46 96 Weight Admit Weight 72.597 kg Weight 72.597 kg I&O: 08/27/19 08/28/19 08/29/19 06:59 06:59 07:59 Intake Total 1960 Output Total 1600 Balance 360 Result Diagrams: 08/29/19 05:38 08/29/19 05:38 Phys Exam - Physical Examination Constitutional: NAD Respiratory: clear to auscultation bilateral Cardiovascular: RRR Gastrointestinal: no distention, positive bowel sounds Musculoskeletal: pulses present wound care w/ dressing change to L foot, dressing not disturbed. Psychiatric: normal affect, A&O x 3 Dx/Plan (1) COPD (chronic obstructive pulmonary disease) Status: Chronic (2) Diabetic foot ulcer associated with type 2 diabetes mellitus Code(s): E11.621 - TYPE 2 DIABETES MELLITUS WITH FOOT ULCER; L97.509 - NON- PRESSURE CHRONIC ULCER OTH PRT UNSP FOOT W UNSP SEVERITY Status: Acute Qualifiers: Diabetic foot ulcer location: midfoot Laterality: left Non-pressure ulcer stage: unspecified non-pressure ulcer stage Qualified Code(s): E11.621 - Type 2 diabetes mellitus with foot ulcer; L97.429 - Non-pressure chronic ulcer of left heel and midfoot with unspecified severity (3) Coronary artery disease Code(s): I25.10 - ATHSCL HEART DISEASE OF [place] CORONARY ARTERY W/O ANG PCTRS Status: Chronic Qualifiers: Coronary Disease-Associated Artery/Lesion type: bypass graft [place] vs. transplanted heart: [place] heart Associated angina: without angina Qualified Code(s): I25.810 - Atherosclerosis of coronary artery bypass graft(s) without angina pectoris (4) Diabetes mellitus, type II Status: Chronic (5) Hyperlipidemia Code(s): E78.5 - HYPERLIPIDEMIA, UNSPECIFIED Status: Chronic Qualifiers: Hyperlipidemia type: mixed hyperlipidemia Qualified Code(s): E78.2 - Mixed hyperlipidemia (6) Hypertension Code(s): I10 - ESSENTIAL (PRIMARY) HYPERTENSION Status: Chronic Qualifiers: Hypertension type: essential hypertension Qualified Code(s): I10 - Essential (primary) hypertension - Plan Plan: 53-yo M w/ Hx of T2DM and other comorbidities admitted for: L foot wound and L foot cellulitis with possible abscess s/p I&D associated with diabetes - I&D by podiatry outpatient w/ purulent material, possible abscess given that cavitary area now present on exam - L foot xray showing bone changes concerning for osteomyelitis - Continue vancomycin and cefepime. - encourage oral fluid intake - NM 3 phase bone scan to be taken on Friday to rule out osteomyelitis. - wound care consult. PT and OT. Will need rolling walker on discharge to encourage ambulation. May also need wheel chair pending surgery/NM scan results. T2DM, uncontrolled - recent cataract surgery. 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 - Lantus 30 in AM, 30 in PM - humalog 4 units TID with meals scheduled. Hold if no caloric intake. - humalog moderate SSI CKD - appears to be at baseline GFR and creatinine. Sees Dr. Barrios outpatient. - Will monitor renal function CAD CHF w/ pacemaker - reported pacemaker is not MRI compatible. Placed >5 years ago. - continue home medications Hypotension - possibly 2/2 to CKD, previously had hx of HTN. - continue midodrine Code: Full IVF: SL Diet: CC VTE ppx: heparin Gi ppx: none Abx: vancomycin and cefepime renally dosed for skin infections Disposition/LOS: admit to inpatient medical. LOS > 48H expected. Addendum - Attending - Attending Attestation Date/Time: 08/29/19 9974 I personally evaluated the patient and discussed the management with Dr. Gaming. I agree with the History, Examination, Assessment and Plan documented above with any addition or exceptions noted below.
[2019-08-29 06:03] LABS: #Basophils 0.1 thou/uL (0.0-0.2); #Eosinphils 0.4 thou/uL (0.0-0.7); #Lymphocytes 2.5 thou/uL (1.20-3.40); #Monocytes 0.4 thou/uL (0.11-0.59); #Neutrophils 3.4 thou/uL (1.40-6.50); %Basophils 1.4 % (0.0-1.0); %Eosinophils 6.5 % (0.0-10.0); %Lymphocytes 36.4 % (21.0-51.0); %Monocytes 5.9 % (0.0-10.0); %Neutrophils 49.9 % (42.0-75.0); Mean Corpuscular HGB CONC 33.1 g/dL (32.0-36.0); Mean Corpuscular Hemoglobin 26.6 pg (27.0-31.0); Mean Corpuscular Volume 80.4 fL (78.0-98.0); Platelet Count 554 thou/uL (130-400); RBC Distribution Width 12.7 % (11.5-14.5); Red Blood Cell (RBC) Count 4.51 mill/uL (4.70-6.10); White Blood Cell (WBC) Count 6.8 thou/uL (4.8-10.8)
[2019-08-29 06:24] LABS: Anion Gap 12 mmol/L (10-20); BUN (Urea Nitrogen) 34 mg/dL (8.4-25.7); Calc. Creatinine Clearance 35 mL/min (70-130); Calcium 9.2 mg/dL (7.8-10.44); Carbon Dioxide 24 mmol/L (22-29); Chloride 104 mmol/L (98-107); Estimated GFR-MDRD 28; Glucose 100 mg/dL (70-105); Potassium 4.5 mmol/L (3.5-5.1); Sodium 135 mmol/L (136-145)
[2019-08-29] MEDS: Heparin 5,000 UNITS/ML VIAL SC SCH ×3 (08:14→20:11)
[2019-08-29] MEDS: Midodrine HCl 5 MG TAB PO SCH ×3 (08:15→20:11)
[2019-08-29] MEDS: Icosapent Ethyl 1 GM CAPSULE PO SCH (08:15)
[2019-08-29] MEDS: Gabapentin 300 MG CAP PO SCH ×2 (08:15→20:10)
[2019-08-29] MEDS: Carvedilol 3.125 MG TAB PO SCH ×2 (08:15→20:11)
[2019-08-29] MEDS: Aspirin Chewable 81 MG TAB PO SCH (08:15)
[2019-08-29] MEDS: HumaLOG 300 UNITS/3 ML VIAL SC SCH ×3 (08:16→17:52)
[2019-08-29] MEDS: Insulin Glargine 30 UNITS in Pre-Filled Syringe SC SCH (08:17)
[2019-08-29] MEDS: Cefepime 1 GM in Sodium Chloride 0.9% 100 ML IVPB SCH (16:18)
[2019-08-29 17:29] LABS: Vancomycin, Random 15.5 ug/mL (See Comment)
[2019-08-29] MEDS: Vancomycin HCl 500 MG in Sodium Chloride 0.9% 100 ML IVPB SCH (18:48)
[2019-08-29] MEDS: Fenofibrate Nanocrystallized 145 MG TAB PO SCH (20:10)
[2019-08-29] MEDS: Rosuvastatin 20 MG TAB PO SCH (20:11)
[2019-08-29] MEDS: Insulin Glargine 30 UNITS in Pre-Filled Syringe 1 EACH SC SCH (20:11)
[2019-08-30 05:49] LABS: #Basophils 0.1 thou/uL (0.0-0.2); #Eosinphils 0.4 thou/uL (0.0-0.7); #Lymphocytes 2.4 thou/uL (1.20-3.40); #Monocytes 0.4 thou/uL (0.11-0.59); #Neutrophils 2.9 thou/uL (1.40-6.50); %Basophils 1.3 % (0.0-1.0); %Eosinophils 6.3 % (0.0-10.0); %Lymphocytes 39.9 % (21.0-51.0); %Monocytes 5.8 % (0.0-10.0); %Neutrophils 46.8 % (42.0-75.0); Mean Corpuscular HGB CONC 33.9 g/dL (32.0-36.0); Mean Corpuscular Volume 79.6 fL (78.0-98.0); Platelet Count 577 thou/uL (130-400); RBC Distribution Width 12.8 % (11.5-14.5); Red Blood Cell (RBC) Count 4.47 mill/uL (4.70-6.10); White Blood Cell (WBC) Count 6.1 thou/uL (4.8-10.8)
--- NOTE | 2019-08-30 06:05 | PDOC.FM ---
- Subjective Subjective: Pt denies any pain to his L foot today. Denies CP, SOB, GRAVES. Going for NM bone scan today. - Objective MAR Reviewed: Yes Vital Signs & Weight: Vital Signs (12 hours) Temp Pulse Resp BP Pulse Ox 08/29/19 19:46 98.4 F 72 18 127/84 100 Weight Admit Weight 72.597 kg Weight 72.597 kg I&O: 08/28/19 08/29/19 08/30/19 05:59 06:59 06:59 Intake Total 690 Output Total 850 Balance -160 Result Diagrams: 08/30/19 05:36 08/30/19 05:36 Phys Exam - Physical Examination Constitutional: NAD HEENT: moist MMs, sclera anicteric Neck: no nodes, full ROM Respiratory: no wheezing, no rales, no rhonchi, clear to auscultation bilateral Cardiovascular: RRR, no significant murmur, no rub Gastrointestinal: soft, non-tender, no distention L foot bandaged, dry. Neurological: non-focal, moves all 4 limbs Psychiatric: normal affect, A&O x 3 Skin: normal turgor Dx/Plan (1) Diabetic foot ulcer associated with type 2 diabetes mellitus Code(s): E11.621 - TYPE 2 DIABETES MELLITUS WITH FOOT ULCER; L97.509 - NON- PRESSURE CHRONIC ULCER OTH PRT UNSP FOOT W UNSP SEVERITY Status: Acute Qualifiers: Diabetic foot ulcer location: midfoot Laterality: left Non-pressure ulcer stage: unspecified non-pressure ulcer stage Qualified Code(s): E11.621 - Type 2 diabetes mellitus with foot ulcer; L97.429 - Non-pressure chronic ulcer of left heel and midfoot with unspecified severity (2) COPD (chronic obstructive pulmonary disease) Status: Chronic (3) Chronic kidney disease, stage 3 Status: Chronic (4) Coronary artery disease Code(s): I25.10 - ATHSCL HEART DISEASE OF [place] CORONARY ARTERY W/O ANG PCTRS Status: Chronic Qualifiers: Coronary Disease-Associated Artery/Lesion type: bypass graft [place] vs. transplanted heart: [place] heart Associated angina: without angina Qualified Code(s): I25.810 - Atherosclerosis of coronary artery bypass graft(s) without angina pectoris (5) Diabetes mellitus, type II Status: Chronic (6) Hx of CABG Status: Chronic (7) Hyperlipidemia Code(s): E78.5 - HYPERLIPIDEMIA, UNSPECIFIED Status: Chronic Qualifiers: Hyperlipidemia type: mixed hyperlipidemia Qualified Code(s): E78.2 - Mixed hyperlipidemia - Plan Plan: 53-yo M w/ Hx of T2DM and other comorbidities admitted for: L foot wound and L foot cellulitis with possible abscess s/p I&D associated with diabetes - I&D by podiatry outpatient w/ purulent material, possible abscess given that cavitary area now present on exam - L foot xray showing bone changes concerning for osteomyelitis - Continue vancomycin and cefepime. - encourage oral fluid intake - NM 3 phase bone scan to be taken on Friday to rule out osteomyelitis. Pt has pacemaker that is incompatible with MRI. - wound care consult. PT and OT. Will need rolling walker on discharge to encourage ambulation. May also need wheel chair pending surgery/NM scan results. T2DM, uncontrolled - recent cataract surgery. 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 - Lantus 30 in AM, 30 in PM - humalog 4 units TID with meals scheduled. Hold if no caloric intake. - humalog moderate SSI CKD - appears to be at baseline GFR and creatinine. Sees Dr. Barrios outpatient. - Will monitor renal function CAD CHF w/ pacemaker - reported pacemaker is not MRI compatible. Placed >5 years ago. - continue home medications Hypotension - possibly 2/2 to CKD, previously had hx of HTN. - continue midodrine Code: Full Diet: CC VTE ppx: heparin Abx: vancomycin and cefepime renally dosed for skin infections Disposition/LOS: admit to inpatient medical. LOS > 48H expected. Addendum - Attending - Attending Attestation Date/Time: 08/30/19 1434 I personally evaluated the patient and discussed the management with Dr. Irvin. I agree with the History, Examination, Assessment and Plan documented above with any addition or exceptions noted below. Patient doing well. Continue IV abx. Bone scan today and possible general surgery consult.
[2019-08-30 06:15] LABS: Anion Gap 11 mmol/L (10-20); BUN (Urea Nitrogen) 33 mg/dL (8.4-25.7); Calc. Creatinine Clearance 37 mL/min (70-130); Calcium 9.5 mg/dL (7.8-10.44); Carbon Dioxide 26 mmol/L (22-29); Chloride 102 mmol/L (98-107); Estimated GFR-MDRD 29; Glucose 111 mg/dL (70-105); Potassium 4.6 mmol/L (3.5-5.1); Sodium 134 mmol/L (136-145)
[2019-08-30] MEDS: Midodrine HCl 5 MG TAB PO SCH ×3 (07:49→20:25)
[2019-08-30] MEDS: Aspirin Chewable 81 MG TAB PO SCH (07:49)
[2019-08-30] MEDS: Carvedilol 3.125 MG TAB PO SCH ×2 (07:49→20:26)
[2019-08-30] MEDS: Heparin 5,000 UNITS/ML VIAL SC SCH ×3 (07:50→20:26)
[2019-08-30] MEDS: Gabapentin 300 MG CAP PO SCH ×2 (07:50→20:25)
[2019-08-30] MEDS: HumaLOG 300 UNITS/3 ML VIAL SC SCH ×3 (07:51→17:14)
[2019-08-30] MEDS: Insulin Glargine 30 UNITS in Pre-Filled Syringe SC SCH (07:51)
[2019-08-30] MEDS: Icosapent Ethyl 1 GM CAPSULE PO SCH (07:52)
--- NOTE | 2019-08-30 13:40 | NM ---
WHOLE BODY BONE SCAN WITH TRIPLE PHASE IMAGING OF THE FEET: HISTORY: Left foot wound, concern for osteomyelitis. RADIOPHARMACEUTICAL: 32 mCi Technetium 99m-MDP injected intravenously. FINDINGS: There is increased flow and blood pooling to the left foot compared to the right. Delayed images dem onstrate increased uptake in the shaft of the 4th metatarsal. Whole body images demonstrate degenerative changes in the shoulders, hips, and knees. Tracer excreti on through the kidneys is within normal limits. There is a focal area of photopenia due to the AICD in the left chest noted on the radiograph of 06/15/2019. IMPRESSION: Osteomyelitis involving the shaft of the left 4th metatarsal. POS: SABA
[2019-08-30] MEDS: Cefepime 1 GM in Sodium Chloride 0.9% 100 ML IVPB SCH (17:14)
[2019-08-30] MEDS: Vancomycin HCl 500 MG in Sodium Chloride 0.9% 100 ML IVPB SCH (18:25)
[2019-08-30] MEDS: Vancomycin HCl 750 MG in Sodium Chloride 0.9% 250 ML 250 ML IVPB SCH (18:28)
[2019-08-30] MEDS: Fenofibrate Nanocrystallized 145 MG TAB PO SCH (20:25)
[2019-08-30] MEDS: Insulin Glargine 30 UNITS in Pre-Filled Syringe 1 EACH SC SCH (20:26)
[2019-08-30] MEDS: Rosuvastatin 20 MG TAB PO SCH (20:26)
[2019-08-31 05:42] LABS: #Basophils 0.1 thou/uL (0.0-0.2); #Eosinphils 0.3 thou/uL (0.0-0.7); #Lymphocytes 2.3 thou/uL (1.20-3.40); #Monocytes 0.4 thou/uL (0.11-0.59); #Neutrophils 3.1 thou/uL (1.40-6.50); %Basophils 0.9 % (0.0-1.0); %Eosinophils 4.5 % (0.0-10.0); %Neutrophils 49.6 % (42.0-75.0); Hemoglobin 11.7 g/dL (14.0-18.0); Mean Corpuscular HGB CONC 32.3 g/dL (32.0-36.0); Mean Corpuscular Hemoglobin 25.7 pg (27.0-31.0); Mean Corpuscular Volume 79.6 fL (78.0-98.0); Mean Platelet Volume 7.1 fL (7.4-10.4); Platelet Count 568 thou/uL (130-400); RBC Distribution Width 12.8 % (11.5-14.5); Red Blood Cell (RBC) Count 4.54 mill/uL (4.70-6.10); White Blood Cell (WBC) Count 6.2 thou/uL (4.8-10.8)
[2019-08-31 05:59] LABS: Anion Gap 10 mmol/L (10-20); BUN (Urea Nitrogen) 34 mg/dL (8.4-25.7); Calc. Creatinine Clearance 36 mL/min (70-130); Calcium 9.4 mg/dL (7.8-10.44); Carbon Dioxide 24 mmol/L (22-29); Chloride 104 mmol/L (98-107); Estimated GFR-MDRD 29; Glucose 84 mg/dL (70-105); Potassium 4.4 mmol/L (3.5-5.1); Sodium 134 mmol/L (136-145)
--- NOTE | 2019-08-31 06:19 | PDOC.FM ---
- Subjective Subjective: Pt resting well, denies any pain this morning. Denies CP, SOB, [place]. - Objective MAR Reviewed: Yes Vital Signs & Weight: Vital Signs (12 hours) Temp Pulse Resp BP Pulse Ox 08/30/19 20:13 98.1 F 69 20 142/82 H 100 08/30/19 19:40 100 Weight Admit Weight 72.597 kg Weight 72.597 kg I&O: 08/29/19 08/30/19 08/31/19 06:59 06:59 06:59 Intake Total 690 660 Output Total 850 1650 Balance -160 -990 Result Diagrams: 08/31/19 05:12 08/31/19 05:12 Phys Exam - Physical Examination Constitutional: NAD HEENT: moist MMs, sclera anicteric Neck: no nodes, full ROM Respiratory: no wheezing, no rales, no rhonchi, clear to auscultation bilateral Cardiovascular: RRR, no rub Gastrointestinal: soft, non-tender, no distention Musculoskeletal: pulses present L foot bandage clean and dry. Neurological: non-focal, moves all 4 limbs Psychiatric: normal affect, A&O x 3 Skin: normal turgor, cap refill <2 seconds Dx/Plan (1) Diabetic foot ulcer associated with type 2 diabetes mellitus Code(s): E11.621 - TYPE 2 DIABETES MELLITUS WITH FOOT ULCER; L97.509 - NON- PRESSURE CHRONIC ULCER OTH PRT UNSP FOOT W UNSP SEVERITY Status: Acute Qualifiers: Diabetic foot ulcer location: midfoot Laterality: left Non-pressure ulcer stage: unspecified non-pressure ulcer stage Qualified Code(s): E11.621 - Type 2 diabetes mellitus with foot ulcer; L97.429 - Non-pressure chronic ulcer of left heel and midfoot with unspecified severity (2) COPD (chronic obstructive pulmonary disease) Status: Chronic (3) Chronic kidney disease, stage 3 Status: Chronic (4) Coronary artery disease Code(s): I25.10 - ATHSCL HEART DISEASE OF [place] CORONARY ARTERY W/O ANG PCTRS Status: Chronic Qualifiers: Coronary Disease-Associated Artery/Lesion type: bypass graft [place] vs. transplanted heart: [place] heart Associated angina: without angina Qualified Code(s): I25.810 - Atherosclerosis of coronary artery bypass graft(s) without angina pectoris (5) Diabetes mellitus, type II Status: Chronic (6) Hx of CABG Status: Chronic (7) Hyperlipidemia Code(s): E78.5 - HYPERLIPIDEMIA, UNSPECIFIED Status: Chronic Qualifiers: Hyperlipidemia type: mixed hyperlipidemia Qualified Code(s): E78.2 - Mixed hyperlipidemia (8) Osteomyelitis Code(s): M86.9 - OSTEOMYELITIS, UNSPECIFIED Status: Acute - Plan Plan: 53-yo M w/ Hx of T2DM and other comorbidities admitted for: L 4th metatarsal shaft osteomyelitis L foot wound and L foot cellulitis with possible abscess s/p I&D associated with diabetes - I&D by podiatry outpatient w/ purulent material, possible abscess given that cavitary area now present on exam - L foot xray showing bone changes concerning for osteomyelitis, NM bone scan confirmed osteo to L shaft 5th metatarsal - Continue vancomycin and cefepime. - Gen surgery: Dr. Meneses consulted, appreciate recommendations. - encourage oral fluid intake - wound care consult. PT and OT. Will need rolling walker on discharge to encourage ambulation. May also need wheel chair pending surgery T2DM, uncontrolled - recent cataract surgery. 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 - Lantus 30 in AM, 30 in PM - humalog 4 units TID with meals scheduled. Hold if no caloric intake. - humalog moderate SSI CKD - appears to be at baseline GFR and creatinine. Sees Dr. Barrios outpatient. - Will monitor renal function CAD CHF w/ pacemaker - reported pacemaker is not MRI compatible. Placed >5 years ago. - continue home medications Hypotension - possibly 2/2 to CKD, previously had hx of HTN. - continue midodrine Code: Full Diet: CC VTE ppx: heparin Abx: vancomycin and cefepime renally dosed for skin infections Disposition/LOS: admit to inpatient medical. LOS > 48H expected. Addendum - Attending - Attending Attestation Date/Time: 08/31/19 5794 I personally evaluated the patient and discussed the management with Dr. Irvin. I agree with the History, Examination, Assessment and Plan documented above with any addition or exceptions noted below. Patient confirmed to have osteomyelitis of the lower extremity digit. Surgery consult placed. Continue IV abx and await likely debridement versus amputation.
[2019-08-31] MEDS: Aspirin Chewable 81 MG TAB PO SCH (08:30)
[2019-08-31] MEDS: Carvedilol 3.125 MG TAB PO SCH ×2 (08:30→20:52)
[2019-08-31] MEDS: Midodrine HCl 5 MG TAB PO SCH ×3 (08:30→20:52)
[2019-08-31] MEDS: Gabapentin 300 MG CAP PO SCH ×2 (08:30→20:52)
[2019-08-31] MEDS: Icosapent Ethyl 1 GM CAPSULE PO SCH (08:31)
[2019-08-31] MEDS: HumaLOG 300 UNITS/3 ML VIAL SC SCH ×3 (08:31→17:02)
[2019-08-31] MEDS: Heparin 5,000 UNITS/ML VIAL SC SCH ×3 (08:31→20:53)
[2019-08-31] MEDS: Insulin Glargine 30 UNITS in Pre-Filled Syringe SC SCH (08:43)
[2019-08-31] MEDS ORDERED: Lidocaine 1% PF 5 ML VIAL ONE (10:10)
[2019-08-31] MEDS ORDERED: EPHEDRINE 25 MG/5 ML SYRINGE ONE (10:10)
[2019-08-31] MEDS ORDERED: PROPOFOL 200 MG/20 ML VIAL ONE (10:10)
--- NOTE | 2019-08-31 11:14 | CON ---
DATE OF CONSULTATION: HISTORY OF PRESENT ILLNESS: Samuel Durham is admitted in this hospitalization family practice. He has had previous amputations of left second and third toes. He has developed a wound injuring his foot getting in and out of the bathtub and wound was located over the dorsal part of the foot over the metatarsophalangeal joint of left fourth toe. X-rays and imaging reveal osteomyelitis of the fourth metatarsal. Recommendation is amputation of left fourth toe and metatarsal wound left open for healing by secondary intention. The patient desires to keep his fifth toe to see what happens to this. He has hair on his feet and palpable pulses. He is n.p.o. We will plan amputation today. Wound VAC application arrangements now and home on oral antibiotics. ALLERGIES: NONE. MEDICATIONS: In hospital, he is on: 1. Vancomycin. 2. Cefepime. At home, he is on: 1. Gabapentin. 2. Fenofibrate. 3. Aspirin. 4. Midodrine. 5. Insulin. 6. Vascepa. 7. Nitroglycerin p.r.n. 8. Crestor. 9. Flexeril. 10. Carvedilol. PAST SURGICAL HISTORY: Previous amputation of left second and third toes, knee surgery, hernia repair, coronary artery bypass grafting, colonoscopy in the past, cataract surgery. PAST MEDICAL HISTORY: Coronary artery disease, stable, followed by Dr. Devine; history of myocardial infarction; CABG; type 2 diabetes mellitus; chronic kidney disease followed by Dr. Barrios. PHYSICAL EXAMINATION: VITAL SIGNS: Height 5 feet 6 inches, weight 160 pounds, 25 BMI, temperature 98 degrees, heart rate 70, respirations 18, blood pressure 105/70. HEAD, EARS, EYES, NOSE, AND THROAT: Unremarkable. LUNGS: Clear to auscultation. CARDIAC: Rhythm without murmur or gallop. ABDOMEN: Soft, nontender. EXTREMITIES: Hair on his feet. Palpable pulses. Previous amputation is well healed, second and third toes, left foot. Right foot normal. Left fourth toe over the metatarsophalangeal joint is an open wound with Nu Gauze packing. Fifth toe looks normal. ASSESSMENT: Osteomyelitis of left fourth metatarsal with open wound secondary to bathtub injury. PLAN: Amputation today. Risks of infection, bleeding, reoperation discussed. Wound VAC application. Discharged home on oral antibiotics. Cultures obtained on 08/27/2019 did not reveal any organisms. Would send home on oral antibiotics for 2 weeks postoperatively. GFR 29, chronic kidney disease. Job ID: [id number]
[2019-08-31] MEDS: Sodium Chloride 0.9% 1,000 ML IV SCH (11:54)
[2019-08-31] MEDS ORDERED: Fentanyl 100 MCG/2 ML VIAL ONE ×2 (14:14→14:49)
[2019-08-31] MEDS ORDERED: Meperidine HCl/PF 25 MG/ML VIAL ONE (15:35)
[2019-08-31] MEDS ORDERED: Midazolam HCl 2 mg/2 ml Vial ONE (15:35)
[2019-08-31] MEDS ORDERED: traMADol HCl 50 MG TAB PO PRN (16:07)
[2019-08-31] MEDS ORDERED: Promethazine HCl 25 MG/ML VIAL SLOW IVP PRN (16:16)
[2019-08-31] MEDS ORDERED: Promethazine HCl 25 MG/ML VIAL IM PRN (16:16)
[2019-08-31] MEDS ORDERED: Ondansetron HCl/PF 4 MG/2 ML Vial IVP PRN (16:16)
--- NOTE | 2019-08-31 16:30 | OP ---
DATE OF PROCEDURE: 08/31/2019 PREOPERATIVE DIAGNOSES: Diabetic infection, left fourth toe (prior amputation of second and third toes metatarsals healed) with osteomyelitis of the left fourth metatarsal secondary to a bathtub injury. POSTOPERATIVE DIAGNOSES: Diabetic infection, left fourth toe (prior amputation of second and third toes metatarsals healed) with osteomyelitis of the left fourth metatarsal secondary to a bathtub injury. PROCEDURES PERFORMED: Amputation of left fourth toe and metatarsal with Wound Care placing a wound VAC, healing by secondary intention. ANESTHESIA: General LMA. DESCRIPTION OF PROCEDURE: The patient was taken to the operating room, where under general LMA anesthesia, left lower extremity was prepped with Betadine and draped in routine fashion. The patient had open wound over the dorsum of the distal foot overlying the fourth metatarsal. Nu Gauze was removed. Foot prepared with Betadine. Incision was made, sparing as much skin as possible, excising the left fourth toe down to the metatarsal, dissected free, transected with a bone cutter, resecting approximately the [place]. Hemostasis was gained with cautery. Excellent bleeding noted. Wound irrigated. Wound Care placed a wound VAC. Job ID: [id number]
[2019-08-31] MEDS: Cefepime 1 GM in Sodium Chloride 0.9% 100 ML IVPB SCH (16:46)
[2019-08-31] MEDS: Vancomycin HCl 750 MG in Sodium Chloride 0.9% 250 ML 250 ML IVPB SCH (17:22)
[2019-08-31] MEDS: Rosuvastatin 20 MG TAB PO SCH (20:52)
[2019-08-31] MEDS: Fenofibrate Nanocrystallized 145 MG TAB PO SCH (20:52)
[2019-08-31] MEDS: Acetaminophen 500 MG TAB PO PRN (20:52)
[2019-08-31] MEDS: Insulin Glargine 30 UNITS in Pre-Filled Syringe 1 EACH SC SCH (20:54)
[2019-09-01] MEDS: Sodium Chloride 0.9% 1,000 ML IV SCH ×2 (01:11→14:06)
[2019-09-01 06:08] LABS: #Eosinphils 0.2 thou/uL (0.0-0.7); #Lymphocytes 1.7 thou/uL (1.20-3.40); #Monocytes 0.4 thou/uL (0.11-0.59); #Neutrophils 3.3 thou/uL (1.40-6.50); %Basophils 0.6 % (0.0-1.0); %Lymphocytes 30.8 % (21.0-51.0); %Monocytes 6.7 % (0.0-10.0); %Neutrophils 58.9 % (42.0-75.0); Hemoglobin 11.2 g/dL (14.0-18.0); Mean Corpuscular HGB CONC 32.8 g/dL (32.0-36.0); Mean Corpuscular Hemoglobin 26.3 pg (27.0-31.0); Mean Corpuscular Volume 80.2 fL (78.0-98.0); Mean Platelet Volume 7.1 fL (7.4-10.4); Platelet Count 522 thou/uL (130-400); RBC Distribution Width 12.8 % (11.5-14.5); Red Blood Cell (RBC) Count 4.26 mill/uL (4.70-6.10); White Blood Cell (WBC) Count 5.6 thou/uL (4.8-10.8)
[2019-09-01 06:26] LABS: Anion Gap 11 mmol/L (10-20); BUN (Urea Nitrogen) 30 mg/dL (8.4-25.7); Calc. Creatinine Clearance 37 mL/min (70-130); Calcium 8.7 mg/dL (7.8-10.44); Carbon Dioxide 25 mmol/L (22-29); Chloride 103 mmol/L (98-107); Estimated GFR-MDRD 29; Glucose 225 mg/dL (70-105); Potassium 4.8 mmol/L (3.5-5.1); Sodium 134 mmol/L (136-145)
--- NOTE | 2019-09-01 06:50 | PDOC.FM ---
- Subjective Subjective: Pt denies any pain at surgical site. wound vac present with small amount of serosanginous drainage. - Objective MAR Reviewed: Yes Vital Signs & Weight: Vital Signs (12 hours) Temp Pulse Resp BP BP Pulse Ox 09/01/19 04:00 97.9 F 82 18 116/72 97 09/01/19 00:00 98.0 F 68 18 111/76 98 08/31/19 21:00 100 08/31/19 20:45 97.9 F 80 18 129/82 100 Weight Admit Weight 72.597 kg Weight 72.597 kg I&O: 08/30/19 08/31/19 09/01/19 06:59 06:59 06:59 Intake Total 226 012 7214 Output Total 850 1650 1200 Balance -160 -990 1220 Result Diagrams: 09/01/19 05:44 09/01/19 05:44 Phys Exam - Physical Examination Constitutional: NAD HEENT: moist MMs, sclera anicteric Neck: no JVD, full ROM Respiratory: no wheezing, no rales, no rhonchi, clear to auscultation bilateral Cardiovascular: RRR, no rub Gastrointestinal: soft, non-tender, no distention, positive bowel sounds Musculoskeletal: pulses present wound vac over L foot surgical site. No TTP over L foot. Neurological: non-focal, moves all 4 limbs Psychiatric: normal affect, A&O x 3 Skin: no rash, normal turgor, cap refill <2 seconds Dx/Plan (1) Diabetic foot ulcer associated with type 2 diabetes mellitus Code(s): E11.621 - TYPE 2 DIABETES MELLITUS WITH FOOT ULCER; L97.509 - NON- PRESSURE CHRONIC ULCER OTH PRT UNSP FOOT W UNSP SEVERITY Status: Acute Qualifiers: Diabetic foot ulcer location: midfoot Laterality: left Non-pressure ulcer stage: unspecified non-pressure ulcer stage Qualified Code(s): E11.621 - Type 2 diabetes mellitus with foot ulcer; L97.429 - Non-pressure chronic ulcer of left heel and midfoot with unspecified severity (2) COPD (chronic obstructive pulmonary disease) Status: Chronic (3) Chronic kidney disease, stage 3 Status: Chronic (4) Coronary artery disease Code(s): I25.10 - ATHSCL HEART DISEASE OF [place] CORONARY ARTERY W/O ANG PCTRS Status: Chronic Qualifiers: Coronary Disease-Associated Artery/Lesion type: bypass graft [place] vs. transplanted heart: [place] heart Associated angina: without angina Qualified Code(s): I25.810 - Atherosclerosis of coronary artery bypass graft(s) without angina pectoris (5) Diabetes mellitus, type II Status: Chronic (6) Hx of CABG Status: Chronic (7) Hyperlipidemia Code(s): E78.5 - HYPERLIPIDEMIA, UNSPECIFIED Status: Chronic Qualifiers: Hyperlipidemia type: mixed hyperlipidemia Qualified Code(s): E78.2 - Mixed hyperlipidemia (8) Osteomyelitis Code(s): M86.9 - OSTEOMYELITIS, UNSPECIFIED Status: Acute - Plan Plan: 53-yo M w/ Hx of T2DM and other comorbidities admitted for: L 4th metatarsal shaft osteomyelitis L foot wound and L foot cellulitis with possible abscess s/p I&D associated with diabetes - I&D by podiatry outpatient w/ purulent material, possible abscess given that cavitary area now present on exam - L foot xray showing bone changes concerning for osteomyelitis, NM bone scan confirmed osteo to L shaft 5th metatarsal - Continue vancomycin and cefepime. - Gen surgery: Dr. Meneses consulted, appreciate recommendations. 4th toe and metatarsal amputation. Wound vac for secondary intention healing. - encourage oral fluid intake. will transition to oral antibiotics for 2 weeks after IV antibiotics given today. - wound care consult. PT and OT. Will need rolling walker on discharge to encourage ambulation. May also need wheel chair pending surgery T2DM, uncontrolled - recent cataract surgery. 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 - Lantus 30 in AM, 30 in PM - humalog 4 units TID with meals scheduled. Hold if no caloric intake. - humalog moderate SSI CKD - appears to be at baseline GFR and creatinine. Sees Dr. Barrios outpatient. - Will monitor renal function CAD CHF w/ pacemaker - reported pacemaker is not MRI compatible. Placed >5 years ago. - continue home medications Hypotension - possibly 2/2 to CKD, previously had hx of HTN. - continue midodrine Code: Full Diet: CC VTE ppx: heparin Abx: vancomycin and cefepime renally dosed for skin infections Disposition/LOS: admit to inpatient medical. LOS > 48H expected. Possible d/c home today. transition to oral antibiotic therapy. Addendum - Attending - Attending Attestation Date/Time: 09/01/19 1143 I personally evaluated the patient and discussed the management with Dr. Irvin. I agree with the History, Examination, Assessment and Plan documented above with any addition or exceptions noted below. Patient doing well. S/p amputation for osteomyelitis. Will work on outpatient abx regimen and Wound vac approval. Continue wound care while here.
[2019-09-01] MEDS: Insulin Glargine 30 UNITS in Pre-Filled Syringe SC SCH (08:18)
[2019-09-01] MEDS: Gabapentin 300 MG CAP PO SCH ×2 (08:19→20:15)
[2019-09-01] MEDS: Heparin 5,000 UNITS/ML VIAL SC SCH ×3 (08:19→20:15)
[2019-09-01] MEDS: Aspirin Chewable 81 MG TAB PO SCH (08:20)
[2019-09-01] MEDS: Midodrine HCl 5 MG TAB PO SCH ×3 (08:20→20:16)
[2019-09-01] MEDS: Carvedilol 3.125 MG TAB PO SCH ×2 (08:20→20:15)
[2019-09-01] MEDS: HumaLOG 300 UNITS/3 ML VIAL SC SCH ×3 (08:21→17:16)
[2019-09-01] MEDS: Icosapent Ethyl 1 GM CAPSULE PO SCH (08:22)
[2019-09-01] MEDS: Acetaminophen 500 MG TAB PO PRN ×2 (12:32→20:16)
[2019-09-01] MEDS: AMOXicillin 250 MG CAP PO SCH ×2 (14:05→20:17)
[2019-09-01] MEDS: HumaLOG 300 UNITS/3 ML VIAL SC PRN (17:16)
[2019-09-01] MEDS: Fenofibrate Nanocrystallized 145 MG TAB PO SCH (20:15)
[2019-09-01] MEDS: Insulin Glargine 30 UNITS in Pre-Filled Syringe 1 EACH SC SCH (20:15)
[2019-09-01] MEDS: Doxycycline 100 MG CAP PO SCH (20:15)
[2019-09-01] MEDS: Cefdinir 300 MG CAP PO SCH (20:15)
[2019-09-01] MEDS: Rosuvastatin 20 MG TAB PO SCH (20:16)
[2019-09-02] MEDS: AMOXicillin 250 MG CAP PO SCH ×2 (05:35→16:00)
[2019-09-02 06:05] LABS: #Basophils 0.1 thou/uL (0.0-0.2); #Eosinphils 0.2 thou/uL (0.0-0.7); #Lymphocytes 2.4 thou/uL (1.20-3.40); #Monocytes 0.4 thou/uL (0.11-0.59); %Basophils 0.9 % (0.0-1.0); %Eosinophils 3.6 % (0.0-10.0); %Lymphocytes 39.3 % (21.0-51.0); %Neutrophils 50.1 % (42.0-75.0); Hemoglobin 11.2 g/dL (14.0-18.0); Mean Corpuscular HGB CONC 34.2 g/dL (32.0-36.0); Mean Corpuscular Hemoglobin 27.2 pg (27.0-31.0); Mean Corpuscular Volume 79.6 fL (78.0-98.0); Mean Platelet Volume 6.9 fL (7.4-10.4); Platelet Count 486 thou/uL (130-400); RBC Distribution Width 12.8 % (11.5-14.5); Red Blood Cell (RBC) Count 4.11 mill/uL (4.70-6.10)
[2019-09-02 06:24] LABS: Anion Gap 11 mmol/L (10-20); BUN (Urea Nitrogen) 31 mg/dL (8.4-25.7); Calc. Creatinine Clearance 42 mL/min (70-130); Carbon Dioxide 25 mmol/L (22-29); Chloride 104 mmol/L (98-107); Estimated GFR-MDRD 34; Glucose 174 mg/dL (70-105); Potassium 4.7 mmol/L (3.5-5.1); Sodium 135 mmol/L (136-145)
--- NOTE | 2019-09-02 06:48 | PDOC.FM ---
- Subjective Subjective: pt asleep upon entry to the room. No acute overnight events. awaiting approval for wound vac for d/c home. Vitals stable. - Objective Vital Signs & Weight: Vital Signs (12 hours) Temp Pulse Resp BP Pulse Ox 09/01/19 21:00 97 09/01/19 20:00 99.0 F 81 18 121/76 97 Weight Admit Weight 72.597 kg Weight 72.597 kg I&O: 08/31/19 09/01/19 09/02/19 06:59 06:59 06:59 Intake Total 660 2420 1510 Output Total 1650 1200 2550 Balance -990 1220 -1040 Result Diagrams: 09/02/19 05:46 09/02/19 05:46 Phys Exam - Physical Examination Constitutional: NAD HEENT: moist MMs, sclera anicteric Neck: no nodes, supple Respiratory: no wheezing, no rales, no rhonchi, clear to auscultation bilateral Cardiovascular: RRR, no rub Gastrointestinal: soft, positive bowel sounds Musculoskeletal: no edema, pulses present L foot bandaged, clean and dry. Neurological: non-focal, moves all 4 limbs Psychiatric: normal affect, A&O x 3 Skin: no rash, cap refill <2 seconds Dx/Plan (1) Diabetic foot ulcer associated with type 2 diabetes mellitus Code(s): E11.621 - TYPE 2 DIABETES MELLITUS WITH FOOT ULCER; L97.509 - NON- PRESSURE CHRONIC ULCER OTH PRT UNSP FOOT W UNSP SEVERITY Status: Acute Qualifiers: Diabetic foot ulcer location: midfoot Laterality: left Non-pressure ulcer stage: unspecified non-pressure ulcer stage Qualified Code(s): E11.621 - Type 2 diabetes mellitus with foot ulcer; L97.429 - Non-pressure chronic ulcer of left heel and midfoot with unspecified severity (2) COPD (chronic obstructive pulmonary disease) Status: Chronic (3) Chronic kidney disease, stage 3 Status: Chronic (4) Coronary artery disease Code(s): I25.10 - ATHSCL HEART DISEASE OF [place] CORONARY ARTERY W/O ANG PCTRS Status: Chronic Qualifiers: Coronary Disease-Associated Artery/Lesion type: bypass graft [place] vs. transplanted heart: [place] heart Associated angina: without angina Qualified Code(s): I25.810 - Atherosclerosis of coronary artery bypass graft(s) without angina pectoris (5) Diabetes mellitus, type II Status: Chronic (6) Hx of CABG Status: Chronic (7) Hyperlipidemia Code(s): E78.5 - HYPERLIPIDEMIA, UNSPECIFIED Status: Chronic Qualifiers: Hyperlipidemia type: mixed hyperlipidemia Qualified Code(s): E78.2 - Mixed hyperlipidemia (8) Osteomyelitis Code(s): M86.9 - OSTEOMYELITIS, UNSPECIFIED Status: Acute - Plan Plan: 53-yo M w/ Hx of T2DM and other comorbidities admitted for: L 4th metatarsal shaft osteomyelitis L foot wound and L foot cellulitis with possible abscess s/p I&D associated with diabetes - I&D by podiatry outpatient w/ purulent material, possible abscess given that cavitary area now present on exam - L foot xray showing bone changes concerning for osteomyelitis, NM bone scan confirmed osteo to L shaft 5th metatarsal. S/P amputation of 4th digit and metatarsal bone L foot. - D/c vancomycin and cefepime 08/31. - Gen surgery: Dr. Meneses consulted, appreciate recommendations. 4th toe and metatarsal amputation. Wound vac for secondary intention healing. - encourage oral fluid intake. Transitioned to amoxil, cefdinir, and doxycycline per recommendations form clinical pharmacist for X2 weeks. - wound care consult. PT and OT. Will need rolling walker on discharge to encourage ambulation. May also need wheel chair pending surgery T2DM, uncontrolled - recent cataract surgery. 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 - Lantus 30 in AM, 30 in PM - humalog 4 units TID with meals scheduled. Hold if no caloric intake. - humalog moderate SSI CKD - appears to be at baseline GFR and creatinine. Sees Dr. Barrios outpatient. - Will monitor renal function CAD CHF w/ pacemaker - reported pacemaker is not MRI compatible. Placed >5 years ago. - continue home medications Hypotension - possibly 2/2 to CKD, previously had hx of HTN. - continue midodrine Code: Full Diet: CC VTE ppx: heparin Abx: vancomycin and cefepime renally dosed for skin infections Disposition/LOS: admit to inpatient medical. LOS > 48H expected. Possible d/c home today. transition to oral antibiotic therapy. Addendum - Attending - Attending Attestation Date/Time: 09/02/19 1110 I personally evaluated the patient and discussed the management with Dr. Irvin. I agree with the History, Examination, Assessment and Plan documented above with any addition or exceptions noted below.
[2019-09-02] MEDS ORDERED: Lactinex Tablet PO SCH (09:00)
[2019-09-02] MEDS: Heparin 5,000 UNITS/ML VIAL SC SCH ×2 (09:17→15:39)
[2019-09-02] MEDS: Gabapentin 300 MG CAP PO SCH (09:17)
[2019-09-02] MEDS: Insulin Glargine 30 UNITS in Pre-Filled Syringe SC SCH (09:17)
[2019-09-02] MEDS: Doxycycline 100 MG CAP PO SCH (09:18)
[2019-09-02] MEDS: Cefdinir 300 MG CAP PO SCH (09:18)
[2019-09-02] MEDS: Midodrine HCl 5 MG TAB PO SCH ×2 (09:18→15:39)
[2019-09-02] MEDS: Aspirin Chewable 81 MG TAB PO SCH (09:19)
[2019-09-02] MEDS: HumaLOG 300 UNITS/3 ML VIAL SC SCH ×3 (09:19→17:17)
[2019-09-02] MEDS: Icosapent Ethyl 1 GM CAPSULE PO SCH (09:20)
[2019-09-02] MEDS: Carvedilol 3.125 MG TAB PO SCH (09:56)
[2019-09-02 11:29] VITALS: TEMP 98
[2019-09-02] MEDS: HumaLOG 300 UNITS/3 ML VIAL SC PRN ×2 (12:18→17:17)
[2019-09-02 15:58] VITALS: BP 117/73
--- NOTE | 2019-09-03 05:48 | DIS ---
DATE OF ADMISSION: 08/27/2019 DATE OF DISCHARGE: 09/02/2019 RESIDENT: Maribell Irvin DO ADMITTING ATTENDING: Jaime Puentes MD DISCHARGE ATTENDING: Jaime Puentes MD. CONSULTATIONS: 1. General surgery, Dr. Meneses. 2. Wound Care Eval/Treat and Case Management. PROCEDURES: Amputation of left 4th digit and metatarsal bone performed by Dr. Meneses on 08/31/2019. DIAGNOSES: 1. Osteomyelitis to the left 4th digit and foot and metatarsal head secondary to left foot diabetic wound. 2. Left foot cellulitis with possible abscess. 3. Type 2 diabetes mellitus, uncontrolled. 4. Chronic kidney disease. 5. Coronary artery disease. 6. Congestive heart failure with pacemaker. 7. Hypertension. DISCHARGE MEDICATIONS: 1. Amoxicillin 500 mg p.o. q.8 hours for 2 weeks. 2. Aspirin 81 mg p.o. daily. 3. Carvedilol 6.25 mg p.o. b.i.d. 4. Cefdinir 300 mg p.o. b.i.d. for 2 weeks. 5. Flexeril 10 mg p.o. t.i.d. p.r.n. 6. Doxycycline 100 mg p.o. b.i.d. for 2 weeks. 7. Fenofibrate 1 tablet p.o. at bedtime. 8. Gabapentin 600 mg p.o. b.i.d. 9. Vascepa 2 g p.o. daily. 10. Insulin detemir 50 units subcu daily. 11. Lactobacillus one tablet p.o. daily. 12. 10 mg p.o. t.i.d. 13. Nitroglycerin 0.4 mg sublingual q.5 hours minutes p.r.n. for chest pain. 14. Crestor 20 mg p.o. at bedtime. HISTORY OF PRESENT ILLNESS/HOSPITAL COURSE: Mr. Durham is a 53-year-old male who was admitted to the hospital for a left diabetic foot ulcer. He was found to have osteomyelitis of the left 4th digit as well as metatarsal head. Dr. Meneses with surgery was consulted. The patient also has a pacemaker, which was incompatible with MRI machine holding patient here over last weekend for a nuclear medicine scan to take place on Friday morning, this scan proved the osteomyelitis. He had been on cefepime and vanc from 08/26 to 08/31. On 08/30, Dr. Meneses performed amputation of the left 4th digit and metatarsal head and then patient was transferred on to p.o. antibiotics on 08/31, to Amoxil, cefdinir and doxycycline. This is for coverage of organisms that have previously grown from the diabetic foot wound culture. E. coli could be treated with the cefdinir, enterococcus to be treated with Amoxil and to cover for MRSA, addition of doxy. The wound culture taken by the patient's pharmacy consultant did not show any growth at 48 hours. The wound culture was taken by the Family Medicine residency team. This showed mixed skin keyur, so we needed to protect against all possible bacteria for this patient. The patient was also placed on probiotic to help him not get diarrhea from the antibiotic use. The patient also has a history of CKD, which was at his baseline throughout this hospital stay. The patient never had severe pain in his foot and tolerated the procedure very well. A wound VAC was placed over the patient's wound as Dr. Meneses would like this to heal due to secondary intention. The patient was discharged with wound care outpatient and a wound VAC will be maintained as it was approved by Case Management to go home on. DISPOSITION: Stable upon discharge. DISCHARGE INSTRUCTIONS: 1. Location: To home. 2. Diet: Heart healthy and consistent carb. 3. Activity: As tolerated. 4. Followup: Dr. Meneses in 10 days and Tatyana A teodora Physician in 7 days and [facility]. Job ID: [id number]
== END 2019-09-02 18:15 | disposition home or self-care (01) | DRG 617 ==
LOC: ERS 11:39 → T4-A 14:40
PROVIDERS: ADMIT Student in an Organized Health Care Education/Training Program; ATTEND Student in an Organized Health Care Education/Training Program
PROC: 0Y6N0ZD Detachment at Left Foot, Partial 4th Ray, Open Approach (ICD-10-PCS; principal; 2019-08-31)
DX: E11.69 Type 2 diabetes mellitus with other specified complication (principal); M86.8X8 Other osteomyelitis, other site; L03.116 Cellulitis of left lower limb; L02.612 Cutaneous abscess of left foot; I13.0 Hypertensive heart and chronic kidney disease with heart failure and stage 1 through stage 4 chronic kidney disease, or unspecified chronic kidney disease; I25.10 Atherosclerotic heart disease of native coronary artery without angina pectoris; I50.9 Heart failure, unspecified; E11.22 Type 2 diabetes mellitus with diabetic chronic kidney disease; B96.29 Other Escherichia coli [E. coli] as the cause of diseases classified elsewhere; B95.62 Methicillin resistant Staphylococcus aureus infection as the cause of diseases classified elsewhere; B96.89 Other specified bacterial agents as the cause of diseases classified elsewhere; E11.621 Type 2 diabetes mellitus with foot ulcer; L97.529 Non-pressure chronic ulcer of other part of left foot with unspecified severity; Z95.0 Presence of cardiac pacemaker; Z98.42 Cataract extraction status, left eye; Z98.41 Cataract extraction status, right eye; Z83.3 Family history of diabetes mellitus; Z87.891 Personal history of nicotine dependence; Z89.422 Acquired absence of other left toe(s); J44.9 Chronic obstructive pulmonary disease, unspecified; E78.5 Hyperlipidemia, unspecified; I95.9 Hypotension, unspecified; L08.89 Other specified local infections of the skin and subcutaneous tissue; N18.3 Chronic kidney disease, stage 3 (moderate)
CPT/HCPCS: 36415; 36416; 78315; 80048; 80053; 80202; 83605; 85025; 85652; 86140; 87040; 87070; 87205; 88305; 88311; 94760; 96365; 96375; A9503; J0692; J0696; J1644; J1815; J2001; J2175; J2250; J2704; J3010; J3370; J3490; J7050

== ENCOUNTER 2019-10-01 10:51 | Emergency (ER) | payer MEDICARE, MEDICAID ==
--- NOTE | 2019-10-01 11:41 | RAD ---
Portable frontal chest radiograph: 10/01/2019 COMPARISON: 06/15/2019 HISTORY: Bradycardia FINDINGS: Lungs are clear. Heart and mediastinal contours appear within normal limits. Stable midline sternotomy wires and dual lead transvenous AICD. IMPRESSION: No acute findings.
[2019-10-01 11:50] LABS: #Basophils 0.1 thou/uL (0.0-0.2); #Eosinphils 0.3 thou/uL (0.0-0.7); #Lymphocytes 2.2 thou/uL (1.20-3.40); #Monocytes 0.4 thou/uL (0.11-0.59); #Neutrophils 4.3 thou/uL (1.40-6.50); %Basophils 1.1 % (0.0-1.0); %Eosinophils 3.6 % (0.0-10.0); %Monocytes 4.9 % (0.0-10.0); %Neutrophils 59.4 % (42.0-75.0); Hemoglobin 14.3 g/dL (14.0-18.0); Mean Corpuscular HGB CONC 33.8 g/dL (32.0-36.0); Mean Corpuscular Volume 80.1 fL (78.0-98.0); Mean Platelet Volume 8.5 fL (7.4-10.4); Platelet Count 310 thou/uL (130-400); RBC Distribution Width 14.3 % (11.5-14.5); Red Blood Cell (RBC) Count 5.29 mill/uL (4.70-6.10); White Blood Cell (WBC) Count 7.2 thou/uL (4.8-10.8)
[2019-10-01 11:54] LABS: ALT (SGPT) 24 U/L (8-55); AST (SGOT) 22 U/L (5-34); Albumin 4.4 g/dL (3.5-5.0); Alkaline Phosphatase 34 U/L (40-110); Anion Gap 16 mmol/L (10-20); BUN (Urea Nitrogen) 32 mg/dL (8.4-25.7); Bilirubin, Total 0.4 mg/dL (0.2-1.2); CK (CPK) 132 U/L (30-200); Calc. Creatinine Clearance 0 mL/min (70-130); Calcium 10.2 mg/dL (7.8-10.44); Carbon Dioxide 22 mmol/L (22-29); Chloride 99 mmol/L (98-107); Estimated GFR-MDRD 21; Globulin 3.9 g/dL (2.4-3.5); Glucose 346 mg/dL (70-105); Potassium 4.6 mmol/L (3.5-5.1); Protein, Total 8.3 g/dL (6.0-8.3); Sodium 132 mmol/L (136-145)
[2019-10-01 12:15] LABS: CKMB 2.1 ng/mL (0-6.6)
[2019-10-01] MEDS ORDERED: Aspirin Chewable 81 MG TAB ONE (12:41)
[2019-10-01 15:36] LABS: Troponin I 0.025 ng/mL (< 0.028)
== END 2019-10-01 16:00 | disposition home or self-care (01) ==
LOC: ERS 10:51
DX: R07.9 Chest pain, unspecified (principal); E11.9 Type 2 diabetes mellitus without complications; E78.5 Hyperlipidemia, unspecified; I10 Essential (primary) hypertension; J44.9 Chronic obstructive pulmonary disease, unspecified; Z79.899 Other long term (current) drug therapy
CPT/HCPCS: 36415; 71045; 80053; 82550; 82553; 83880; 84484; 85025; 93005

== ENCOUNTER 2019-12-13 14:18 | Emergency (ER) | payer MEDICARE, OTHER ==
[2019-12-13 15:21] LABS: #Lymphocytes 0.9 thou/uL (1.20-3.40); #Monocytes 0.4 thou/uL (0.11-0.59); #Neutrophils 4.4 thou/uL (1.40-6.50); %Eosinophils 0.1 % (0.0-10.0); %Lymphocytes 16.1 % (21.0-51.0); %Monocytes 6.5 % (0.0-10.0); %Neutrophils 77.3 % (42.0-75.0); Hemoglobin 11.9 g/dL (14.0-18.0); Mean Corpuscular HGB CONC 33.3 g/dL (32.0-36.0); Mean Corpuscular Hemoglobin 27.3 pg (27.0-31.0); Mean Platelet Volume 7.9 fL (7.4-10.4); Platelet Count 266 thou/uL (130-400); RBC Distribution Width 12.8 % (11.5-14.5); Red Blood Cell (RBC) Count 4.35 mill/uL (4.70-6.10); White Blood Cell (WBC) Count 5.7 thou/uL (4.8-10.8)
--- NOTE | 2019-12-13 15:36 | RAD ---
EXAM: Single view of the chest HISTORY: Chest pain COMPARISON: 10/01/2019 FINDINGS: Single view of the chest shows a normal sized cardiomediastinal silhouette. The pacemaker is unchanged in position. The patient is status post sternotomy. There is no evidence of consolidation, mass, or pleural effusion. The bones are unremarkable. IMPRESSION: No evidence of acute cardiopulmonary disease
[2019-12-13 15:53] LABS: ALT (SGPT) 12 U/L (8-55); AST (SGOT) 24 U/L (5-34); Albumin 3.2 g/dL (3.5-5.0); Alkaline Phosphatase 26 U/L (40-110); Anion Gap 16 mmol/L (10-20); BUN (Urea Nitrogen) 28 mg/dL (8.4-25.7); Bilirubin, Total 0.3 mg/dL (0.2-1.2); CK (CPK) 89 U/L (30-200); Calc. Creatinine Clearance 0 mL/min (70-130); Calcium 7.8 mg/dL (7.8-10.44); Carbon Dioxide 18 mmol/L (22-29); Chloride 104 mmol/L (98-107); Estimated GFR-MDRD 28; Globulin 3.2 g/dL (2.4-3.5); Glucose 63 mg/dL (70-105); Lipase 39 U/L (8-78); Magnesium 1.9 mg/dL (1.6-2.6); Potassium 4.6 mmol/L (3.5-5.1); Protein, Total 6.4 g/dL (6.0-8.3); Sodium 133 mmol/L (136-145)
[2019-12-13] MEDS ORDERED: Ondansetron PF 4 MG/2 ML Vial ONE (16:09)
--- NOTE | 2019-12-13 16:29 | CT ---
CT OF THE ABDOMEN AND PELVIS WITHOUT IV CONTRAST INDICATION: History of chest pain, shortness of breath, nausea and vomiting and loose stools COMPARISON: CT the abdomen and pelvis with contrast dated March 09, 2018 FINDINGS: The lack of IV contrast limits evaluation of the solid organs of the abdomen and pelvis. ABDOMEN: Lung bases: There are patchy peripheral subpleural groundglass airspace opacities affecting the lower lobes, right middle lobe and lingula. There is partial visualization of a pacemaker. Liver: There is fatty infiltration of the liver. Gallbladder: Normal appearing. Pancreas: Normal. Adrenal glands: Normal. Spleen: Normal. Kidneys and ureters: Normal. No hydronephrosis. Vasculature: There are mild vascular calcifications seen involving the visualized vasculature. Lymph nodes:No lymphadenopathy. Free fluid in abdomen:No free fluid is evident. PELVIS: Small and large bowel: There is postsurgical change of a appendectomy. There is air-fluid levels pres ent within the colon which may reflect a diarrheal state. Small bowel is of normal caliber. Appendix:Surgically absent Bladder: There is mild circumferential wall thickening of the bladder. Rectal and perirectal soft tissues:Normal. Reproductive structures: Prostate gland measures 4.5 cm. There are calcifications of the vas deferens . Free fluid in pelvis: No free fluid is evident. Lymphadenopathy pelvis: No lymphadenopathy is evident. Osseous structures: No acute osseous abnormality. No destructive osteolytic or osteoblastic lesion i s identified. There is scattered degenerative and osteoarthritic changes. Soft tissues:Normal. IMPRESSION: 1. Patchy peripheral subpleural groundglass opacities can be seen in atypical infectious processes marcelo ch as viral pneumonia. Recommend correlation with COVID testing. 2. Air-fluid levels present within the colon can be seen with diarrheal states or mild colitis. 3. Mild circumferential wall thickening of the bladder may reflect chronic bladder outlet obstruction or a mild cystitis. Recommend correlation with the clinical examination and urinary laboratories. 4. Calcifications of the vas deferens can be seen in diabetic males. There is mild prostate enlargeme nt. 5. Fatty liver. 6. Postoperative change of prior appendectomy.
[2019-12-13 18:01] LABS: Bilirubin Negative (Negative); Blood, Urine 2+ (Negative); Clarity Turbid (Clear); Glucose, Urine (Dipstick) 30 mg/dL (Negative); Leukocyte Negative Leu/uL (Negative); Nitrite Negative (Negative); Protein, Urine (Dipstick) 200 mg/dL (Neg-Trace)
[2019-12-13 19:08] LABS: Bacteria/HPF None Seen HPF (None Seen); RBC/HPF 0-3 HPF (0-3); Squamous Epithelial 0-3 HPF (0-3)
--- NOTE | 2019-12-18 17:28 | EKG ---
Test Reason : Blood Pressure : / mmHG Vent. Rate : 107 BPM Atrial Rate : 107 BPM P-R Int : 188 ms QRS Dur : 090 ms QT Int : 324 ms P-R-T Axes : 055 -07 031 degrees QTc Int : 432 ms Sinus tachycardia Inferior infarct , age undetermined Abnormal ECG T wave inversion III Confirmed by VALENTINA DINERO M.D. ([id number]), city editor BRENDAN CORDOBA ([id number]) on 12/18/2019 5:28:27 PM Referred By: Confirmed By:VALENTINA DINERO M.D.
== END 2019-12-13 19:56 | disposition home or self-care (01) ==
LOC: ERS 14:18
DX: J12.9 Viral pneumonia, unspecified (principal); R07.9 Chest pain, unspecified; I12.9 Hypertensive chronic kidney disease with stage 1 through stage 4 chronic kidney disease, or unspecified chronic kidney disease; N18.9 Chronic kidney disease, unspecified; E11.22 Type 2 diabetes mellitus with diabetic chronic kidney disease; R10.13 Epigastric pain; E78.5 Hyperlipidemia, unspecified; I25.10 Atherosclerotic heart disease of native coronary artery without angina pectoris; J44.9 Chronic obstructive pulmonary disease, unspecified; Z79.891 Long term (current) use of opiate analgesic; Z79.82 Long term (current) use of aspirin; Z79.899 Other long term (current) drug therapy; Z79.4 Long term (current) use of insulin
CPT/HCPCS: 36415; 51701; 71045; 74176; 80053; 81003; 81015; 82550; 83605; 83690; 83735; 84484; 85025; 87040; 93005; 94760; 96361; 96372; 96374; J0500; J2405

== ENCOUNTER 2020-03-03 17:00 | Inpatient (IN) | payer MEDICARE, MEDICAID, OTHER ==
[2020-03-03 17:40] LABS: #Eosinphils 0.2 thou/uL (0.0-0.7); #Lymphocytes 1.6 thou/uL (1.20-3.40); #Monocytes 0.3 thou/uL (0.11-0.59); #Neutrophils 3.7 thou/uL (1.40-6.50); %Basophils 0.3 % (0.0-1.0); %Eosinophils 2.9 % (0.0-10.0); %Lymphocytes 28.1 % (21.0-51.0); %Monocytes 4.8 % (0.0-10.0); %Neutrophils 63.8 % (42.0-75.0); Hemoglobin 12.1 g/dL (14.0-18.0); Mean Corpuscular HGB CONC 33.5 g/dL (32.0-36.0); Mean Corpuscular Hemoglobin 27.6 pg (27.0-31.0); Mean Corpuscular Volume 82.4 fL (78.0-98.0); Mean Platelet Volume 8.8 fL (7.4-10.4); Platelet Count 272 thou/uL (130-400); Red Blood Cell (RBC) Count 4.39 mill/uL (4.70-6.10); White Blood Cell (WBC) Count 5.8 thou/uL (4.8-10.8)
--- NOTE | 2020-03-03 17:56 | RAD ---
Exam:Right foot 3 HISTORY: Patient Boyer toe in hot water months ago. Persistent swelling. COMPARISON: 04/13/2013 FINDINGS: Extensive atherosclerosis Lisfranc alignment is maintained. Preserved joint spaces. No fracture, cortical irregularity or perio steal reaction. Chronic changes in the right foot are redemonstrated. IMPRESSION: No acute abnormality.
[2020-03-03 17:58] LABS: ALT (SGPT) 16 U/L (8-55); AST (SGOT) 16 U/L (5-34); Alkaline Phosphatase 44 U/L (40-110); Anion Gap 15 mmol/L (10-20); BUN (Urea Nitrogen) 37 mg/dL (8.4-25.7); Bilirubin, Total 0.3 mg/dL (0.2-1.2); Calc. Creatinine Clearance 0 mL/min (70-130); Carbon Dioxide 18 mmol/L (22-29); Chloride 96 mmol/L (98-107); Estimated GFR-MDRD 22; Globulin 3.7 g/dL (2.4-3.5); Potassium 5.3 mmol/L (3.5-5.1); Protein, Total 7.7 g/dL (6.0-8.3); Sodium 124 mmol/L (136-145)
[2020-03-03 18:05] LABS: Glucose 755 mg/dL (70-105)
[2020-03-03] MEDS ORDERED: Cefepime 2 GM VIAL ONE (18:46)
[2020-03-03 19:14] LABS: Bacteria/HPF None Seen HPF (None Seen); Bilirubin Negative (Negative); Blood, Urine Trace (Negative); Clarity Clear (Clear); Glucose, Urine (Dipstick) Greater than 1000 mg/dL (Negative); Ketone, Urine Negative (Negative); Leukocyte Negative Leu/uL (Negative); Nitrite Negative (Negative); Protein, Urine (Dipstick) 30 mg/dL (Neg-Trace); RBC/HPF 0-3 HPF (0-3); Squamous Epithelial 0-3 HPF (0-3); Urobilinogen Normal mg/dL (Less than 2); WBC/HPF None Seen HPF (0-3)
[2020-03-03 19:19] LABS: Base Excess-Venous -2.1 mmol/L (-2.0 to 3.0); Bicarbonate (HCO3v) 21.4 mmol/L (22.0-28.0); CO2 Tension (PvCO2) 31.8 mmHg (40.0-50.0); Calcium, Ionized 1.07 mmol/L (See Comments:); Chloride 97 mmol/L (98-107); Hemoglobin - Calc 12.6 g/dL (14.0-18.0); Sodium 128 mmol/L (138-145); T. Carbon Dioxide 22.3 mmol/L (22.0-28.0); vO2 Saturation-calc 99.4 % (60.0-85.0)
[2020-03-03] MEDS ORDERED: Vancomycin 1 GM/200 ML BAG ONE (19:19)
[2020-03-03 19:25] LABS: CKMB 2.4 ng/mL (0-6.6)
[2020-03-03] MEDS ORDERED: Clindamycin/D5W 900 mg/50 ml Premix Bag ONE (19:52)
[2020-03-03] MEDS ORDERED: Aspirin Chewable 81 MG TAB ONE (19:52)
[2020-03-03] MEDS ORDERED: Insulin Regular 100 units/100 ml in NS IVPB SCH (20:00)
--- NOTE | 2020-03-03 20:44 | PDOC.FPRHP ---
- History of Present Illness Chief Complaint: toe pain History of Present Illness: 54 y/o M with PMHx DM, HFrEF, CKD presents with toe pain/infection. States he spilled hot water on his foot approximately 3 months ago and has been struggling with his foot since then, worse in the past 1 week. He has been putting an antibacterial cream on the area, but it has not been improving. He describes aching pain that extends from his toe up to his ankle. He denies any fever, chills, malaise. ED workup significant for blood glucose >700. States he has been taking his insulin at home, 50 units daily. He reports losing his glucometer 1 week ago and has not checked his BS since that. Reports it was around 200 last week before he lost the glucometer. He states he is compliant with the medications he is supposed to take, but does not know the names of these medications. Denies polydipsia, polyuria, tremors, twitching, or seizure like activity. ED Course: XR foot NAF. Vanc, cefepime, clindamycin. 2L NS, insulin bolus. - Allergies/Adverse Reactions Allergies Allergy/AdvReac Type Severity Reaction Status Date / Time No Known Drug Allergies Allergy Verified 03/03/20 22:54 - Home Medications Medication Instructions Recorded Confirmed Type Nitroglycerin 0.4 mg SL Q5MIN PRN 03/02/15 03/03/20 History Aspirin Chewable [Aspirin Chewable 81 mg PO DAILY tab 11/28/18 03/03/20 Rx Tablet] Carvedilol [Coreg] 3.125 mg PO DAILY-AC #30 tab 02/02/20 03/03/20 Rx Gabapentin 600 mg PO BID #60 tablet 02/02/20 03/03/20 Rx Icosapent Ethyl [Vascepa] 2 gm PO BID-AC #60 capsule 02/02/20 03/03/20 Rx Insulin Detemir [Levemir Flextouch] 50 units SC DAILY #4 insuln.pen 02/02/2005/12 Rx Midodrine HCl [ProAmatine] 10 mg PO TID #90 tab 02/02/20 03/03/20 Rx Rosuvastatin [Crestor] 20 mg PO HS 30 Days #30 tab 02/02/20 03/03/20 Rx glipiZIDE [glipiZIDE ER] 5 mg PO QAM-WM #30 tab.er.24 02/02/20 03/03/20 Rx Fenofibrate Nanocrystallized 145 mg PO HS 03/03/20 03/03/20 History [Fenofibrate] - History PMHx: DMII, HFrEF, HLD, COPD, HTN, Hx of DC, CABG in 2005 PSHx: CABG in 2006, knee surgery, 3 toe amputations, appendectomy, defibrillator placement FHx: DMII Social: Former smoker 2ppd for 40yrs, quit in 2005. Denies alcohol, drug use. - Review of Systems General: denies: fever/chills, fatigue Eyes: denies: vision changes ENT: denies: nasal congestion, rhinorrhea Respiratory: denies: cough, congestion, shortness of breath Cardiovascular: denies: chest pain, palpitation Gastrointestinal: denies: nausea, vomiting, diarrhea, constipation, abdominal pain Genitourinary: denies: dysuria, polyuria Skin: denies: rashes, jaundice Musculoskeletal: reports: pain, other (pain, erythema R 2nd toe) Neurological: denies: syncope, seizure Psychological: denies: anxiety, depression - Vital signs BP: 151/89 HR: 90 RR: 18 Tmax: 98.9 Pox: 99% on RA Wt: 80 kg - Physical Exam Constitutional: NAD, awake, alert and oriented, well developed HEENT: normocephalic and atraumatic, conjunctiva clear, grossly normal vision, grossly normal hearing Neck: trachea midline, no thyromegaly -Chest: sternotomy scar Heart: RRR, no murmurs/rubs/gallops, no edema -Heart: pulses not palpable Lungs: CTAB, no respiratory distress Abdomen: soft, non-tender, bowel sounds present -Musculoskeletal: surgical absence of L 2nd-4th toes; erythema, warmth of R second toe with necrotic appearing toenail Neurological: no focal deficit, CN II-XII intact Skin: capillary refill <2 seconds -Skin: warm, erythematous R second toe Heme/Lymphatic: no unusual bruising or bleeding Psychiatric: normal mood and affect FMR H&P: Results - Labs Result Diagrams: 03/04/20 03:17 03/04/20 03:17 Lab results: WBC 5.8 thou/uL (4.8-10.8) 03/03/20 17:22 Hgb 12.1 g/dL (14.0-18.0) L 03/03/20 17:22 Hct 36.2 % (42.0-52.0) L 03/03/20 17:22 MCV 82.4 fL (78.0-98.0) 03/03/20 17:22 Plt Count 272 thou/uL (130-400) 03/03/20 17:22 Neutrophils % 63.8 % (42.0-75.0) 03/03/20 17:22 VBG pCO2 31.8 mmHg (40.0-50.0) L 03/03/20 19:06 VBG pO2 151.2 mmHg (35.0-45.0) H 03/03/20 19:06 Sodium 124 mmol/L (136-145) L 03/03/20 17:22 Potassium 5.3 mmol/L (3.5-5.1) H 03/03/20 17:22 Chloride 96 mmol/L (98-107) L 03/03/20 17:22 Carbon Dioxide 18 mmol/L (22-29) L 03/03/20 17:22 BUN 37 mg/dL (8.4-25.7) H 03/03/20 17:22 Creatinine 3.03 mg/dL (0.7-1.3) H 03/03/20 17:22 Glucose 755 mg/dL (70-105) H* 03/03/20 17:22 Lactic Acid 1.8 mmol/L (0.5-2.2) 03/03/20 17:22 Calcium 9.0 mg/dL (7.8-10.44) 03/03/20 17:22 Total Bilirubin 0.3 mg/dL (0.2-1.2) 03/03/20 17:22 AST 16 U/L (5-34) 03/03/20 17:22 ALT 16 U/L (8-55) 03/03/20 17:22 Alkaline Phosphatase 44 U/L (40-110) 03/03/20 17:22 CK-MB (CK-2) 2.4 ng/mL (0-6.6) 03/03/20 18:35 Serum Total Protein 7.7 g/dL (6.0-8.3) 03/03/20 17:22 Albumin 4.0 g/dL (3.5-5.0) 03/03/20 17:22 Urine Ketones Negative mg/dL (Negative) 03/03/20 19:03 Urine Blood Trace (Negative) A 03/03/20 19:03 Urine Nitrite Negative (Negative) 03/03/20 19:03 Ur Leukocyte Esterase Negative Quin/uL (Negative) 03/03/20 19:03 Urine RBC 0-3 HPF (0-3) 03/03/20 19:03 Urine WBC None Seen HPF (0-3) 03/03/20 19:03 Ur Squamous Epith Cells 0-3 HPF (0-3) 03/03/20 19:03 Urine Bacteria None Seen HPF (None Seen) 03/03/20 19:03 FMR H&P: A/P - Plan Hyperosmolar Hyperglycemic State BS on admission >700. No ketones in urine. No elevation of beta hydroxybutyrate. VBG in ED with pH 7.43. No ketosis and no acidosis, this is not DKA. BS improved to 400s s/p 2L NS in ED. Insulin gtt/DKA protocol started - continue DKA protocol - q4hr BMP to monitor AGAP, K closely - will likely transition to subq insulin in the AM - may continue gabapentin when switched to PO intake - hold home anti-hyperglycemics while on DKA protocol Cellulitis Cellulitis of R second toe with pain extending to ankle. XR foot in ER without any signs of gas or extensive involvement. Given vanc, cefepime, clindamycin in ED. - CT foot to r/o osteomyelitis - blood cx x 2 ordered, although will be after abx in the ED - plan to continue patient on vanc and zosyn, dosing pending CT results and renal function HFrEF AICD in place. EF 35-40% in 05/2019. Not on diuretic therapy outpatient. No signs of volume overload on exam today. - monitor volume status closely with fluids given in DKA protocol JUANCHO on CKD4 Cr 3 on admission, appears baseline is close to 2.3. - fluid rehydration with DKA protocol - continue to monitor HLD Aware - continue home statin when switched to PO intake Hx syncope - continue home midodrine when switched to PO intake CAD - continue ASA when switched to PO intake Disposition/LOS: Dispo: LOS >2 days, admit to [facility] DVT ppx: lovenox renally dose Diet: NPO on DKA protocol FMR H&P: Upper Level - Plan Date/Time: 03/03/202043 I, [Anabella Ordoñez], have evaluated this patient and agree with findings/plan as outlined by internetworking technician resident. Pertinent changes/additions are listed here. Mr. Durham is a 54 yo M with IDDM2 who presents for right second toe pain. He spilled hot water on it and since then has had increasing pain and drainage from the wound. He has had several toe amputations due to uncontrolled DM2. In the ER he was given 2g cefepime, 900mg clindamycin and 1g Vancomycin. He denies fevers, chills. Additionally, he was found to be in HHS with glucose ~700s. Patient states he takes his levemir daily but does endorse polyuria, polydipsia. He was started on DKA protocol. #. Cellulitis of right foot, second toe -Foot xray with no acute findings; however could be early osteomyelitis. Will obtain CT. -Will get ESR/CRP to trend -s/p 1g vanc, 2g cefepime & 900mg clindamycin. Will continue vanc & zosyn. -Wound care, BCx. #. HHS in IDDM2 -Glucose ~700s, no urinary or serum ketones. AG of 20 but pH 7.4 -Started on DKA protocol, can continue. Transition to long acting insulin in AM. -Diabetes education, recheck A1c -Could be due to compliance issues. But also acute infection could have precipitated HHS. #. Dehydration -2/2 to HHS -Fluid hydrate #. AG Met. Acidosis -AG 20, repeat in AM #HFrEF with AICD -Hypovolemic from dehydration -Will monitor fluid status closely with all the fluids from DKA protocol #HTN -BP stable. Monitor. Resume home meds. #HLD -Resume home meds #CKD4 -At baseline from prior admissions -Repeat in AM Social: Patient states he lives with mom and daughter. He performs his own ADLs. Will consult CM. Abx: Vanc & zosyn Fluids: DKA protocol Prognosis: Stable Dispo: >2 midnights Code: Full PCP: Sydney Addendum - Attending - Attending Attestation Date/Time: 03/03/202035 I personally evaluated the patient and discussed the management with Dr. Hayden. I agree with the History, Examination, Assessment and Plan documented above with any addition or exceptions noted below. The patient presented to the ER with toe pain and was found to have glucose over 700. He spilled boiling water on a right toe and it hasn't been healing. Will start antibiotics for cellulitis. XR did not show evidence of osteomyelitis. Pt on insulin drip, admitting to imcu. Replace potassium for hypokalemia.
[2020-03-03] MEDS ORDERED: Electrolyte Replacement Protoc 1 EACH EACH IVPB PRN (21:15)
[2020-03-03] MEDS ORDERED: HUMULIN R 100 UNITS in Sodium Chloride 0.9% 100 ML IVPB SCH (21:15)
[2020-03-03] MEDS ORDERED: Acetaminophen 325 MG TAB PO PRN (21:15)
[2020-03-03] MEDS ORDERED: Dextrose 5 %-0.45 % NaCl 1,000 ML IV PRN ×2 (21:15→21:20)
[2020-03-03] MEDS ORDERED: NS 0.9% w/ 20 MEQ KCL 1,000 ML IV PRN ×2 (21:15)
[2020-03-03] MEDS ORDERED: Sodium Chloride 0.9% 1,000 ML IV PRN ×8 (21:15→21:20)
[2020-03-03] MEDS ORDERED: NS 0.9% w/ 20 MEQ KCL 1,000 ML/1,000 ML BAG IV PRN ×2 (21:20)
[2020-03-03] MEDS ORDERED: D5 1/2 NS w/20 mEq KCL 1,000 ML IV PRN (21:20)
[2020-03-03] MEDS ORDERED: Dextrose 5% in Water 1,000 ML IV PRN (21:20)
[2020-03-03] MEDS ORDERED: Dextrose 50% Abboject 50 ML SYRINGE SLOW IVP PRN (21:21)
[2020-03-03] MEDS ORDERED: ADD ELECTROLYTE REPLACEMENT SET TO PROFILE FS SCH (21:30)
[2020-03-03 22:05] LABS: Anion Gap 13 mmol/L (10-20); BUN (Urea Nitrogen) 33 mg/dL (8.4-25.7); Calc. Creatinine Clearance 0 mL/min (70-130); Calcium 8.7 mg/dL (7.8-10.44); Carbon Dioxide 19 mmol/L (22-29); Chloride 103 mmol/L (98-107); Estimated GFR-MDRD 27; Glucose 364 mg/dL (70-105); Potassium 4.1 mmol/L (3.5-5.1); Sodium 131 mmol/L (136-145)
[2020-03-03 22:56] VITALS: BMI 27.8
[2020-03-03] MEDS: D5 1/2 NS w/20 mEq KCL 1,000 ML IV PRN (23:19)
[2020-03-03 23:37] LABS: Hemoglobin A1c 13.3 % (4.0-6.0)
[2020-03-04 01:58] LABS: Anion Gap 12 mmol/L (10-20); BUN (Urea Nitrogen) 28 mg/dL (8.4-25.7); Calc. Creatinine Clearance 46 mL/min (70-130); Calcium 8.5 mg/dL (7.8-10.44); Carbon Dioxide 18 mmol/L (22-29); Chloride 108 mmol/L (98-107); Estimated GFR-MDRD 34; Glucose 204 mg/dL (70-105); Potassium 3.9 mmol/L (3.5-5.1); Sodium 134 mmol/L (136-145)
[2020-03-04] MEDS: D5 1/2 NS w/20 mEq KCL 1,000 ML IV PRN ×2 (03:39→08:14)
[2020-03-04 03:40] LABS: #Basophils 0.1 thou/uL (0.0-0.2); #Eosinphils 0.2 thou/uL (0.0-0.7); #Lymphocytes 1.7 thou/uL (1.20-3.40); #Monocytes 0.5 thou/uL (0.11-0.59); #Neutrophils 3.9 thou/uL (1.40-6.50); %Basophils 1.1 % (0.0-1.0); %Eosinophils 3.4 % (0.0-10.0); %Lymphocytes 26.8 % (21.0-51.0); %Monocytes 7.5 % (0.0-10.0); %Neutrophils 61.2 % (42.0-75.0); Hemoglobin 11.5 g/dL (14.0-18.0); Mean Corpuscular HGB CONC 34.8 g/dL (32.0-36.0); Mean Corpuscular Hemoglobin 28.1 pg (27.0-31.0); Mean Corpuscular Volume 80.7 fL (78.0-98.0); Mean Platelet Volume 8.5 fL (7.4-10.4); Platelet Count 243 thou/uL (130-400); RBC Distribution Width 13.9 % (11.5-14.5); Red Blood Cell (RBC) Count 4.11 mill/uL (4.70-6.10); White Blood Cell (WBC) Count 6.4 thou/uL (4.8-10.8)
[2020-03-04 03:59] LABS: Anion Gap 12 mmol/L (10-20); BUN (Urea Nitrogen) 26 mg/dL (8.4-25.7); CRP (Inflammatory) 1.08 mg/dL (= or < 0.5); Calc. Creatinine Clearance 46 mL/min (70-130); Calcium 8.4 mg/dL (7.8-10.44); Carbon Dioxide 20 mmol/L (22-29); Chloride 107 mmol/L (98-107); Estimated GFR-MDRD 34; Glucose 149 mg/dL (70-105); Potassium 3.9 mmol/L (3.5-5.1); Sodium 135 mmol/L (136-145)
--- NOTE | 2020-03-04 05:31 | PDOC.FM ---
- Subjective Subjective: Denies SOB, chest pain, N/V. Reports that he is hungry and would like to eat. Reports improvement in his toe. - Objective MAR Reviewed: Yes Vital Signs & Weight: Vital Signs (12 hours) Temp Resp Pulse Ox 03/04/20 03:48 97.6 F 03/04/20 00:00 16 03/03/20 23:38 97.6 F 03/03/20 21:15 98.6 F 100 Weight Weight 80.796 kg Most Recent Monitor Data Heart Rate from ECG 88 NIBP 146/91 NIBP BP-Mean 109 Respiration from ECG 13 SpO2 100 I&O: 03/02/20 03/03/20 03/04/20 06:59 06:59 06:59 Intake Total 2368 Output Total 2125 Balance 243 Result Diagrams: 03/04/20 03:17 03/04/20 08:23 EKG Reviewed by me: Yes (SR) Phys Exam - Physical Examination Constitutional: NAD Respiratory: no wheezing, no rales, no rhonchi, clear to auscultation bilateral Cardiovascular: RRR, no significant murmur Gastrointestinal: soft, non-tender, no distention, positive bowel sounds Musculoskeletal: no edema Tender 2nd toe on R, no erythema noted, ulceration/necrotic toenail noted Psychiatric: normal affect Dx/Plan - Plan Plan: Hyperosmolar Hyperglycemic State - BS: 755 on admission, last check 122 - No ketones in urine, No elevation of beta hydroxybutyrate. - s/p DKA protocol - started on 40 units lantus, will hold home oral DM meds - continue home gabapentin Cellulitis - XR foot: without any signs of gas or extensive involvement. - s/p vanc, cefepime, clindamycin in ED. - will hold off on CT due to poor kidney function - blood cx ordered (after abx in ED) - Vanc and Zosyn stared (03/04) HFrEF - AICD in place; EF 35-40% in 05/2019 Not on diuretic therapy outpatient. No signs of volume overload on exam today. - monitor fluid status - strict Is and Os, daily weight JUANCHO on CKD4 - Cr: 3 >> 2.06 (baseline ~2.3) - s/p fluid rehydration with DKA protocol - continue to monitor HLD - continue home statin Hx syncope - continue home midodrine CAD - continue ASA Dispo: likely dc home tomorrow or Friday after transitioning to oral Abx Ppx: lovenox renally dose; consider switching to BID dosing tomorrow given Crcl of 47 Diet: CC Addendum - Attending - Attending Attestation Date/Time: 03/04/20 0561 I personally evaluated the patient and discussed the management with Dr. Johnson. I agree with the History, Examination, Assessment and Plan documented above with any addition or exceptions noted below. The patient has noticed improvement in toe pain and erythema is improving. Will continue IV antibiotics. Pharmacy to dose vanc. Pt's covid pcr returned today positive. He has no respiratory symptoms. Insulin drip is being stopped and he is being transitioned to long-acting insulin. Continue sliding scale. Hypokalemia improved.
[2020-03-04] MEDS ORDERED: Carvedilol 3.125 MG TAB PO SCH (07:30)
[2020-03-04] MEDS: Gabapentin 300 MG CAP PO SCH ×2 (08:09→20:27)
[2020-03-04] MEDS: Midodrine HCl 5 MG TAB PO SCH ×3 (08:10→17:36)
[2020-03-04] MEDS: Icosapent Ethyl 1 GM CAPSULE PO SCH ×2 (08:10→17:36)
[2020-03-04 08:48] LABS: Anion Gap 13 mmol/L (10-20); BUN (Urea Nitrogen) 22 mg/dL (8.4-25.7); Calc. Creatinine Clearance 47 mL/min (70-130); Calcium 8.3 mg/dL (7.8-10.44); Carbon Dioxide 19 mmol/L (22-29); Chloride 107 mmol/L (98-107); Estimated GFR-MDRD 35; Glucose 242 mg/dL (70-105); Potassium 4.5 mmol/L (3.5-5.1); Sodium 134 mmol/L (136-145)
[2020-03-04] MEDS ORDERED: Enoxaparin Sodium 30 MG/0.3 ML SYRINGE SC SCH (09:00)
[2020-03-04] MEDS ORDERED: Aspirin Chewable 81 MG TAB PO SCH (09:00)
[2020-03-04] MEDS ORDERED: Insulin Glargine 40 UNITS in Pre-Filled Syringe 1 EACH SC SCH (09:00)
[2020-03-04] MEDS ORDERED: HumaLOG 300 UNITS/3 ML VIAL SC PRN (12:53)
[2020-03-04] MEDS ORDERED: Dextrose 5% in Water 1,000 ML IV PRN (12:53)
[2020-03-04 14:20] LABS: SARS-CoV-2 MS2 Positive; SARS-CoV-2 N Gene Positive; SARS-CoV-2 S Gene Positive; SARS-CoV-2 by NAA DETECTED (NotDetected); SARS-CoV-2 orf1ab Positive
[2020-03-04] MEDS: Lactated Ringer's 1,000 ML IV SCH ×3 (14:33→23:43)
[2020-03-04] MEDS: HumaLOG 300 UNITS/3 ML VIAL SC PRN ×2 (14:55→17:37)
[2020-03-04] MEDS: Piperacillin/Tazobactam 3.375 GM in Sodium Chloride 0.9% 100 ML IVPB SCH ×2 (17:36→23:29)
[2020-03-04] MEDS ORDERED: Vancomycin HCl 1.25 GM in Sodium Chloride 0.9% 250 ML 250 ML IVPB SCH ×2 (18:00→19:00)
[2020-03-04 20:12] VITALS: BP 127/75; TEMP 98.3
[2020-03-04] MEDS ORDERED: Rosuvastatin 20 MG TAB PO SCH (21:00)
[2020-03-04] MEDS ORDERED: Fenofibrate Nanocrystallized 145 MG TAB PO SCH (21:00)
[2020-03-05] MEDS: Piperacillin/Tazobactam 3.375 GM in Sodium Chloride 0.9% 100 ML IVPB SCH (04:53)
--- NOTE | 2020-03-05 05:54 | PDOC.BPN ---
- Brief Progress Note Encounter Date: 03/05/20 Encounter Time: 05:00 Paged because pt was wanting to leave AMA. He refused to talk to MD about his condition and walked out of hospital. attemtpeted to call pt 3 times to discuss PO ABX that he could take but phone was disconnected. Pt had already left the building.
--- NOTE | 2020-03-06 14:27 | DIS ---
DATE OF ADMISSION: 03/03/2020 DATE OF DISCHARGE: 03/05/2020 The patient left AMA. RESIDENT: Falguni Johnson MD ADMITTING ATTENDING: Zayra Uribe MD DISCHARGE ATTENDING: Zayra Uribe MD CONSULTATIONS: Case Management, OT, Wound Care. PROCEDURES AND IMAGES: Foot x-ray, no acute abnormality. No fracture, cortical irregularity, or periosteal reaction. PRIMARY DIAGNOSES: 1. Hyperosmolar hyperglycemic state. 2. Cellulitis. SECONDARY DIAGNOSES: 1. Heart failure with reduced ejection fraction. 2. Acute kidney injury on chronic kidney disease 4. 3. Hyperlipidemia. 4. Coronary artery disease. DISCHARGE MEDICATIONS: 1. Nitroglycerin 0.4 mg sublingual q.5 minutes p.r.n. 2. Aspirin 81 mg p.o. daily. 3. Carvedilol 3.125 mg p.o. daily. 4. Gabapentin 600 mg p.o. b.i.d. 5. Glipizide 5 mg p.o. q.a.m. with meals. 6. Vascepa 2 g p.o. b.i.d. before meals. 7. Insulin detemir, Levemir 50 units subcutaneous daily. 8. ProAmatine 10 mg p.o. t.i.d. 9. Rosuvastatin 20 mg p.o. at bedtime. 10. Fenofibrate 125 mg p.o. at bedtime. DISCONTINUED MEDICATIONS: None. HISTORY OF PRESENT ILLNESS AND HOSPITAL COURSE: The patient is a 54-year-old male with past medical history of diabetes, heart failure with reduced ejection fraction, chronic kidney disease, who presented to the ED for toe pain. He reports he on his foot approximately 3 months ago and has struggled with foot pain since. The foot never healed and the pain became severe enough to bring him to the hospital. He reports that he takes his insulin as prescribed, however, he lost his glucometer a week ago. On admission, patient's glucose was found to be greater than 515 and the diagnosis of HHS was made. There were no ketones in his urine and no elevation of beta hydroxybutyrate. He did have an anion gap of 20, but a pH of 7.4. DKA protocol was started and he was later transitioned to long-acting insulin. He was also diagnosed with cellulitis of the second toe of the right foot. X-ray did not show any acute findings, but he was started on 1 g of vanc, 2 g of cefepime, and 900 mg of clindamycin in the ED. Vanc and Zosyn were continued after admission. During patient's admission, he was also found to be tested positive for COVID-19. In the early morning babysitter on 03/05, the patient was found wandering the halls and asked to return to his room due to his positive COVID test. At this time, the patient became frustrated and expressed that he wanted to leave the hospital. The night time physician attempted to talk to the patient multiple times in an attempt to explain to him the seriousness of his condition. Despite the physician attempting to talk to the patient, the patient left AMA the morning of 03/05. The night physician attempted to call the patient 3 times to discuss p.o. antibiotic treatment, but the patient's phone was disconnected. DISPOSITION: Unstable. DISCHARGE PLAN: The patient left AMA. Encouraged the patient to follow up as soon as possible with primary care physician. Job ID: [id number]
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
== END 2020-03-05 05:15 | disposition left against medical advice (07) | DRG 637 ==
LOC: ERS 17:00 → IMCU/EMU 19:47 → T4-A 03-04 20:06
PROVIDERS: ADMIT Family Medicine; ATTEND Family Medicine
DX: E11.628 Type 2 diabetes mellitus with other skin complications (principal); U07.1 COVID-19; I13.0 Hypertensive heart and chronic kidney disease with heart failure and stage 1 through stage 4 chronic kidney disease, or unspecified chronic kidney disease; I50.22 Chronic systolic (congestive) heart failure; E87.2 Acidosis; E11.52 Type 2 diabetes mellitus with diabetic peripheral angiopathy with gangrene; I96 Gangrene, not elsewhere classified; L03.115 Cellulitis of right lower limb; L03.031 Cellulitis of right toe; E11.00 Type 2 diabetes mellitus with hyperosmolarity without nonketotic hyperglycemic-hyperosmolar coma (NKHHC); N17.9 Acute kidney failure, unspecified; N18.4 Chronic kidney disease, stage 4 (severe); E86.0 Dehydration; E87.6 Hypokalemia; I25.10 Atherosclerotic heart disease of native coronary artery without angina pectoris; E11.22 Type 2 diabetes mellitus with diabetic chronic kidney disease; E78.5 Hyperlipidemia, unspecified; J44.9 Chronic obstructive pulmonary disease, unspecified; I25.2 Old myocardial infarction; Z87.891 Personal history of nicotine dependence; Z79.4 Long term (current) use of insulin; Z95.810 Presence of automatic (implantable) cardiac defibrillator; Z90.49 Acquired absence of other specified parts of digestive tract; Z53.29 Procedure and treatment not carried out because of patient's decision for other reasons; Z89.422 Acquired absence of other left toe(s)
CPT/HCPCS: 36415; 36416; 80048; 80053; 81003; 81015; 82010; 82330; 82553; 82803; 83036; 83605; 83735; 84484; 85025; 85652; 86140; 87040; 87635; 93005; 96361; 96365; 96367; J0692; J1650; J1815; J2543; J3370; J3480; J3490; J7050; U0003

== ENCOUNTER 2020-04-04 06:15 | Inpatient (IN) | payer MEDICARE, MEDICAID ==
[2020-04-04 06:55] LABS: #Eosinphils 0.2 thou/uL (0.0-0.7); #Monocytes 0.4 thou/uL (0.11-0.59); #Neutrophils 6.5 thou/uL (1.40-6.50); %Basophils 0.3 % (0.0-1.0); %Eosinophils 1.9 % (0.0-10.0); %Lymphocytes 21.9 % (21.0-51.0); %Monocytes 4.8 % (0.0-10.0); %Neutrophils 71.1 % (42.0-75.0); Mean Corpuscular HGB CONC 32.8 g/dL (32.0-36.0); Mean Corpuscular Hemoglobin 26.3 pg (27.0-31.0); Mean Corpuscular Volume 80.3 fL (78.0-98.0); Mean Platelet Volume 8.3 fL (7.4-10.4); Platelet Count 339 thou/uL (130-400); RBC Distribution Width 12.7 % (11.5-14.5); Red Blood Cell (RBC) Count 4.18 mill/uL (4.70-6.10); White Blood Cell (WBC) Count 9.2 thou/uL (4.8-10.8)
--- NOTE | 2020-04-04 07:06 | PDOC.FPRHP ---
- History of Present Illness Chief Complaint: foot pain History of Present Illness: 54 y/o M PMHx DM, CAD, HFrEF s/p defibrillator who presents for R foot pain. Had amputation of R second toe on 03/30 due to gangrene. He was prescribed outpatient abx to take post-operatively, but he developed some low back pain and thought the antibiotics would be injuring his kidneys so he did not take them. Overnight, the pain became unbearable in his R foot. It was not improved by tylenol at home. He was unable to rest because of the pain. Additional complaint of redness on the forefoot. He denies any fever, chills, swelling, drainage from the area. He reports compliance with his medications at home, but he is unable to list his medications. ED Course: 600 mg IV clindamycin - Allergies/Adverse Reactions Allergies Allergy/AdvReac Type Severity Reaction Status Date / Time No Known Drug Allergies Allergy Verified 04/04/20 09:49 - Home Medications Medication Instructions Recorded Confirmed Type Nitroglycerin 0.4 mg SL Q5MIN PRN 03/02/15 03/28/20 History Aspirin Chewable [Aspirin Chewable 81 mg PO DAILY tab 11/28/18 03/28/20 Rx Tablet] Carvedilol [Coreg] 3.125 mg PO DAILY-AC #30 tab 02/02/20 03/28/20 Rx Gabapentin 600 mg PO BID #60 tablet 02/02/20 03/28/20 Rx Icosapent Ethyl [Vascepa] 2 gm PO BID-AC #60 capsule 02/02/20 03/28/20 Rx Insulin Detemir [Levemir Flextouch] 50 units SC DAILY #4 insuln.pen 02/02/20 03/28/20 Rx Midodrine HCl [ProAmatine] 10 mg PO TID #90 tab 02/02/20 03/28/20 Rx Rosuvastatin [Crestor] 20 mg PO HS 30 Days #30 tab 02/02/20 03/28/20 Rx glipiZIDE [glipiZIDE ER] 5 mg PO QAM-WM #30 tab.er.24 02/02/20 03/28/20 Rx Fenofibrate Nanocrystallized 145 mg PO HS 03/03/20 03/28/20 History [Fenofibrate] Acetaminophen [Tylenol] 1,000 mg PO Q6HR PRN 03/28/20 03/28/20 History - History PMHx: DMII, HFrEF, HLD, COPD, HTN, Hx of [place], CABG in 2006 PSHx: CABG in 2006, knee surgery, 4 toe amputations, appendectomy, defibrillator placement FHx: DMII Social: Former smoker 2ppd for 40yrs, quit in 2005. Denies alcohol, drug use. - Review of Systems General: reports: fatigue. denies: fever/chills ENT: denies: nasal congestion, rhinorrhea Respiratory: denies: cough, congestion, shortness of breath Cardiovascular: denies: chest pain, palpitation, edema Gastrointestinal: denies: nausea, vomiting, diarrhea, constipation, abdominal pain Genitourinary: denies: dysuria Skin: reports: rashes Musculoskeletal: reports: pain, tenderness. denies: swelling Neurological: denies: numbness, syncope - Vital signs BP: 132/89, Pulse: 82, Resp: 20, Temp: 98.4 (Oral), Pain: 10, O2 sat: 96 on (Room Air). Wt: 78.5 kg - Physical Exam Constitutional: NAD, awake, alert and oriented HEENT: normocephalic and atraumatic, conjunctiva clear, grossly normal vision, grossly normal hearing Neck: supple Heart: RRR, no murmurs/rubs/gallops, pulses present, no edema Lungs: CTAB, no respiratory distress Abdomen: soft, non-tender, bowel sounds present -Abdomen: no CVA tenderness -Musculoskeletal: RLE: surgical absence of 2nd toe; stitches in place, surrounding dried blood without drainage from the area LLE: surgical absence of toes 2-4, healed Neurological: no focal deficit Skin: other (warmth, redness of dorsal aspect R forefoot) Heme/Lymphatic: no unusual bruising or bleeding Psychiatric: normal mood and affect, other (poor health literacy) FMR H&P: Results - Labs Result Diagrams: 04/04/20 06:35 04/04/20 06:35 Lab results: WBC 9.2 thou/uL (4.8-10.8) 04/04/20 06:35 Hgb 11.0 g/dL (14.0-18.0) L 04/04/20 06:35 Hct 33.5 % (42.0-52.0) L 04/04/20 06:35 MCV 80.3 fL (78.0-98.0) 04/04/20 06:35 Plt Count 339 thou/uL (130-400) 04/04/20 06:35 Neutrophils % 71.1 % (42.0-75.0) 04/04/20 06:35 FMR H&P: A/P - Plan Cellulitis RLE s/p toe amputation s/p amputation R 2nd toe on 03/30 by podiatry for gangrene. Not compliant with outpatient abx post-op. s/p 600 mg clindamycin IV in ED. - will continue IV clindamycin for coverage of possible strep/MRSA - if no improvement or clinical worsening, will consider addition of cefepime for pseudomonal coverage - consult to wound care for management of surgical site - PRN tylenol for pain control Type 2 Diabetes, poorly controlled Blood sugar > 400 per EMS, 250 on admission without intervention. Suspect chronic non-compliance, poor health literacy may be contributing factor. - continue home lantus - will hold home glipizide due to JUANCHO - SSI, will monitor requirements today and consider switch to basal-bolus regimen in AM - qACHS accucheks JUANCHO on CKD4 Cr 2.92 on admission, appears baseline is close to 2.2. - gentle rehydration in the setting of HFrEF, LR 50 cc/h x 1 bag HFr[address] in place. EF 35-40% in 05/2019. Not on diuretic therapy outpatient. No signs of volume overload on exam today. - monitor volume status closely with fluids given HLD Aware - continue home statin Hx syncope - continue home midodrine CAD - continue ASA Disposition/LOS: Dispo: LOS >2 days for IV abx DVT ppx: lovenox renally dose Diet: HH/CC FMR H&P: Upper Level - Plan Date/Time: 04/04/20 07 Yesica Singh, have evaluated this patient and agree with findings/plan as outlined by internal medicine doctor resident. Pertinent changes/additions are listed here. 54 yo M with PMH IDDM presents for increased R foot pain. 03/30 he had partial 2nd R toe amputation by podiatry due to gangrene. He was prescribed antibiotics to take post surgery but did not start them as he didnt want to hurt his kidneys. Denies fever, chills, dizziness. Reports some redness of toe. PE: Gen: NAD HEENT: Moist MM, no LAD Heart: RRR, no murmurs or extra sounds. Distal pulses 2+ Lungs: CTAB, no wheezing. No increased work of breathing Abd: soft, nontender, BS+, no masses or hernias Ext: no cyanosis or edema Skin: no rashes Psych: AOx3 R 2nd toe cellulitis 2/p partial amputation - Post op day #5 - Received clindamycin in ED, continue - Vital signs stable, WBC normal, no need for IVF, has good PO intake - Consult wound care JUANCHO on CKD4 - Given 1L in ED - Recheck on am labs Hyperglycemia - Poor compliance with insulin regimen, restart home lantus and titrate as needed - Good glycemic control important for wound healing Diet: HH/CC Dispo: admit to medical floor
[2020-04-04 07:11] LABS: ALT (SGPT) Less than 7 U/L (8-55); AST (SGOT) 12 U/L (5-34); Albumin 3.7 g/dL (3.5-5.0); Alkaline Phosphatase 35 U/L (40-110); Anion Gap 14 mmol/L (10-20); BUN (Urea Nitrogen) 32 mg/dL (8.4-25.7); Bilirubin, Total 0.3 mg/dL (0.2-1.2); Calc. Creatinine Clearance 0 mL/min (70-130); Calcium 9.3 mg/dL (7.8-10.44); Carbon Dioxide 21 mmol/L (22-29); Chloride 99 mmol/L (98-107); Estimated GFR-MDRD 22; Glucose 388 mg/dL (70-105); Potassium 4.3 mmol/L (3.5-5.1); Protein, Total 7.7 g/dL (6.0-8.3); Sodium 130 mmol/L (136-145)
[2020-04-04] MEDS ORDERED: Clindamycin/D5W 600 MG in Premix Bag 1 BAG IVPB SCH (07:15)
[2020-04-04] MEDS ORDERED: Dextrose 50% Abboject 50 ML SYRINGE SLOW IVP PRN (07:26)
[2020-04-04] MEDS ORDERED: Dextrose 5% in Water 1,000 ML IV PRN (07:26)
[2020-04-04] MEDS ORDERED: Clindamycin/D5W 600 mg/50 ml Premix Bag ONE (08:24)
--- NOTE | 2020-04-04 08:44 | RAD ---
RIGHT FOOT 3 VIEWS: HISTORY: Amputation of right 2nd toe. COMPARISON: 03/30/2020. FINDINGS: Status post amputation changes of the 2nd toe at the level of the distal aspect of the proximal phala nx with some soft tissue swelling. Prominent vascular calcifications. IMPRESSION: Amputation changes 2nd toe. There is associated soft tissue swelling which may be slightly more prom inent than on the 03/30/2020 postoperative study. Prominent vascular calcifications. No bony erosive or destructive change. POS: RRE
[2020-04-04] MEDS ORDERED: Insulin Regular 300 UNITS/3 ML VIAL ONE (08:47)
[2020-04-04] MEDS ORDERED: Non-Formulary Item 1 EACH (Insulin Detemir [Levemir Flextouch] 100 UNIT/ML Insuln.Pen) SC SCH (09:00)
[2020-04-04] MEDS: Insulin Glargine 50 UNITS in Pre-Filled Syringe 1 EACH SC SCH (11:49)
[2020-04-04] MEDS: Enoxaparin Sodium 30 MG/0.3 ML SYRINGE SC SCH (11:49)
[2020-04-04 13:25] VITALS: BMI 26.3
[2020-04-04] MEDS ORDERED: Nitroglycerin 0.4 MG TAB 1 EACH SL PRN (14:24)
[2020-04-04] MEDS ORDERED: Lactated Ringer's 1,000 ML IV SCH (14:30)
--- NOTE | 2020-04-04 14:47 | PRG ---
DATE OF SERVICE: 04/04/2020 I discussed the case with Dr. Hayden and agree with her assessment and plan. SUBJECTIVE: Mr. Herminio skinner is a 54-year-old male with a long history of type 2 diabetes. He had a recent partial toe amputation on his right 2nd toe in another institution this weekend. He has since developed a mild cellulitis surrounding the wound site and has been admitted for further treatment. OBJECTIVE: VITAL SIGNS: On exam, his blood pressure is 130/80, pulse 80, respirations 20. He is afebrile. His room air pulse ox is 96%. GENERAL: He is a very pleasant man, in no distress. EAR, NOSE, AND THROAT: No erythema or exudate. NECK: Supple. CARDIAC: Heart rhythm regular. No gallop or murmur noted. LUNGS: Clear without rales or wheezes. ABDOMEN: Flat and soft without guarding, rebound, or rigidity. EXTREMITIES: Right foot has a right 2nd toe partial amputation, which appears to be healing well. There is no drainage or pus. There is some mild erythema and warmth extending approximately proximally from his amputation. LABORATORY DATA: White count 9200, hemoglobin 11, hematocrit 33.5. Chemistry; sodium 130, potassium 4.3, chloride 99, bicarb 21, BUN 32, creatinine 2.92, and glucose is 388. ASSESSMENT: Mild cellulitis following toe amputation. PLAN: Admit, controlled diabetes, begin broad-spectrum antibiotics. Job ID: [id number]
[2020-04-04] MEDS: Midodrine HCl 5 MG TAB PO SCH ×2 (15:15→20:32)
[2020-04-04] MEDS: Acetaminophen 325 MG TAB PO PRN ×2 (15:24→20:34)
[2020-04-04] MEDS: Clindamycin/D5W 600 MG in Premix Bag 1 BAG IVPB SCH (16:20)
[2020-04-04] MEDS: Icosapent Ethyl 1 GM CAPSULE PO SCH (16:34)
[2020-04-04] MEDS: HumaLOG 300 UNITS/3 ML VIAL SC PRN (17:26)
[2020-04-04 19:12] LABS: SARS-CoV-2 MS2 Positive; SARS-CoV-2 N Gene Negative; SARS-CoV-2 S Gene Negative; SARS-CoV-2 by NAA Not Detected (NotDetected); SARS-CoV-2 orf1ab Negative
[2020-04-04] MEDS: Fenofibrate Nanocrystallized 145 MG TAB PO SCH (20:32)
[2020-04-04] MEDS: Gabapentin 300 MG CAP PO SCH (20:32)
[2020-04-04] MEDS: Rosuvastatin 20 MG TAB PO SCH (20:32)
[2020-04-05] MEDS: Clindamycin/D5W 600 MG in Premix Bag 1 BAG IVPB SCH ×3 (01:09→16:31)
[2020-04-05 06:54] LABS: #Eosinphils 0.3 thou/uL (0.0-0.7); #Monocytes 0.5 thou/uL (0.11-0.59); #Neutrophils 4.5 thou/uL (1.40-6.50); %Basophils 0.4 % (0.0-1.0); %Eosinophils 3.4 % (0.0-10.0); %Lymphocytes 27.8 % (21.0-51.0); %Monocytes 6.5 % (0.0-10.0); %Neutrophils 61.9 % (42.0-75.0); Hemoglobin 11.3 g/dL (14.0-18.0); Mean Corpuscular HGB CONC 32.8 g/dL (32.0-36.0); Mean Corpuscular Hemoglobin 26.6 pg (27.0-31.0); Mean Corpuscular Volume 81.1 fL (78.0-98.0); Mean Platelet Volume 7.7 fL (7.4-10.4); Platelet Count 344 thou/uL (130-400); RBC Distribution Width 12.6 % (11.5-14.5); Red Blood Cell (RBC) Count 4.26 mill/uL (4.70-6.10); White Blood Cell (WBC) Count 7.3 thou/uL (4.8-10.8)
[2020-04-05 07:04] LABS: Anion Gap 9 mmol/L (10-20); BUN (Urea Nitrogen) 25 mg/dL (8.4-25.7); Calc. Creatinine Clearance 43 mL/min (70-130); Calcium 8.9 mg/dL (7.8-10.44); Carbon Dioxide 26 mmol/L (22-29); Chloride 103 mmol/L (98-107); Estimated GFR-MDRD 32; Glucose 168 mg/dL (70-105); Potassium 4.3 mmol/L (3.5-5.1); Sodium 134 mmol/L (136-145)
[2020-04-05] MEDS: Gabapentin 300 MG CAP PO SCH ×2 (07:59→21:27)
[2020-04-05] MEDS: Enoxaparin Sodium 30 MG/0.3 ML SYRINGE SC SCH (07:59)
[2020-04-05] MEDS: Midodrine HCl 5 MG TAB PO SCH ×3 (07:59→21:28)
[2020-04-05] MEDS: Carvedilol 6.25 MG TAB PO SCH (07:59)
[2020-04-05] MEDS: Aspirin Chewable 81 MG TAB PO SCH (07:59)
[2020-04-05] MEDS: Icosapent Ethyl 1 GM CAPSULE PO SCH ×2 (07:59→16:31)
[2020-04-05] MEDS ORDERED: Prevnar 13-Val Conj/PF 0.5 ML SYRINGE IM ONE (09:00)
[2020-04-05] MEDS ORDERED: FLU VACC QS2020-21(6MOS UP)/PF 60 MCG/0.5 ML SYRINGE IM ONE (09:00)
--- NOTE | 2020-04-05 09:04 | PDOC.FM ---
- Subjective Subjective: No acute overnight events. Feeling better this morning. Reports decreased foot pain, and redness is improving. He denies any SOB or leg swelling. - Objective Vital Signs & Weight: Vital Signs (12 hours) Temp Pulse Resp BP Pulse Ox 04/05/20 07:27 98.6 F 88 14 108/70 98 Weight Weight 78.517 kg I&O: 04/04/20 04/05/20 04/06/20 06:59 06:59 06:59 Intake Total 2050 Output Total 1300 Balance 750 Result Diagrams: 04/05/20 06:25 04/05/20 06:25 Phys Exam - Physical Examination Constitutional: NAD HEENT: moist MMs Neck: supple Respiratory: clear to auscultation bilateral Cardiovascular: RRR, no significant murmur Gastrointestinal: soft, positive bowel sounds Musculoskeletal: no edema, pulses present surgical absence L toes 2-4, R 2nd toe Neurological: non-focal, moves all 4 limbs Psychiatric: normal affect, A&O x 3 Deviation from normal: erythema R dorsal forefoot, warm; 2nd toe stub w/o drainage, stitches in Dx/Plan - Plan Plan: Cellulitis RLE s/p toe amputation s/p amputation R 2nd toe on 03/30 by podiatry for gangrene. Not compliant with outpatient abx post-op. s/p 600 mg clindamycin IV in ED. - clinically improving with clindamycin, will continue. no need to escalate therapy at this time. - consult to wound care for management of surgical site - PRN tylenol for pain control - ESR and CRP elevated although CRP does not meet 7.9 threshold for osteomyelitis; will consider MRI foot to r/o osteomyelitis pending clinical improvement Type 2 Diabetes, poorly controlled Blood sugar > 400 per EMS, 250 on admission without intervention. Suspect chronic non-compliance, poor health literacy may be contributing factor. - continue home lantus - will hold home glipizide due to JUANCHO - SSI, will monitor requirements today and consider switch to basal-bolus regimen in AM - qACHS accucheks JUANCHO on CKD4 Cr 2.92 on admission, appears baseline is close to 2.2. - gentle rehydration in the setting of HFrEF, LR 50 cc/h x 1 bag - no signs of volume overload this AM and Cr improved to 2.[address] EF 35-40% in 05/2019. Not on diuretic therapy outpatient. No signs of volume overload on exam today. - no signs of volume overload this AM but will continue to monitor HLD Aware - continue home statin Hx syncope - continue home midodrine CAD - continue ASA Disposition/LOS: Dispo: LOS >2 days for IV abx DVT ppx: lovenox renally dose Diet: HH/CC
[2020-04-05] MEDS: Insulin Glargine 50 UNITS in Pre-Filled Syringe 1 EACH SC SCH (09:22)
[2020-04-05] MEDS ORDERED: Insulin Glargine 5 UNITS in Pre-Filled Syringe 1 EACH SC SCH (09:45)
[2020-04-05] MEDS: HumaLOG 300 UNITS/3 ML VIAL SC PRN ×2 (11:30→21:30)
--- NOTE | 2020-04-05 14:10 | PRG ---
DATE OF SERVICE: 04/05/2020 I have examined Mr. Durham. I have discussed the case with Dr. Hayden and agree with her assessment and plan as per her progress note. Mr. Durham is a very delightful man and this morning he is usual happy self. I am concerned that his sedimentation rate was significantly elevated at 111 as was his CRP. I think it would be advisable to obtain an MRI to ensure he has not developed osteomyelitis of his right foot. This will be arranged for this afternoon. Job ID: [id number]
[2020-04-05] MEDS: Fenofibrate Nanocrystallized 145 MG TAB PO SCH (21:27)
[2020-04-05] MEDS: Rosuvastatin 20 MG TAB PO SCH (21:28)
[2020-04-06] MEDS: Clindamycin/D5W 600 MG in Premix Bag 1 BAG IVPB SCH ×3 (02:00→17:50)
[2020-04-06 06:50] LABS: #Basophils 0.1 thou/uL (0.0-0.2); #Eosinphils 0.2 thou/uL (0.0-0.7); #Lymphocytes 2.4 thou/uL (1.20-3.40); #Monocytes 0.6 thou/uL (0.11-0.59); #Neutrophils 5.6 thou/uL (1.40-6.50); %Basophils 0.8 % (0.0-1.0); %Eosinophils 2.4 % (0.0-10.0); %Lymphocytes 26.7 % (21.0-51.0); %Monocytes 7.1 % (0.0-10.0); Hemoglobin 11.4 g/dL (14.0-18.0); Mean Corpuscular HGB CONC 32.7 g/dL (32.0-36.0); Mean Corpuscular Hemoglobin 26.6 pg (27.0-31.0); Mean Corpuscular Volume 81.5 fL (78.0-98.0); Mean Platelet Volume 7.7 fL (7.4-10.4); Platelet Count 375 thou/uL (130-400); RBC Distribution Width 12.7 % (11.5-14.5); Red Blood Cell (RBC) Count 4.29 mill/uL (4.70-6.10); White Blood Cell (WBC) Count 8.9 thou/uL (4.8-10.8)
--- NOTE | 2020-04-06 07:04 | PDOC.FM ---
- Subjective Subjective: No acute overnight events. Unable to get MRI yesterday due to AICD compatibility. No new complaints. Foot pain and redness continuing to improve. No fever, chills. - Objective Vital Signs & Weight: Vital Signs (12 hours) Temp Pulse Resp BP BP Pulse Ox 04/06/20 04:00 97.9 F 88 18 95/64 98 04/06/20 00:00 98.0 F 77 18 109/74 98 04/05/20 20:00 98.1 F 84 18 130/85 99 Weight Admit Weight 78.517 kg Weight 78.517 kg I&O: 04/05/20 04/06/20 04/07/20 06:59 06:59 06:59 Intake Total 2050 2200 Output Total 1300 1400 Balance 750 800 Result Diagrams: 04/06/20 06:11 04/06/20 06:11 Phys Exam - Physical Examination Constitutional: NAD HEENT: moist MMs Respiratory: clear to auscultation bilateral Cardiovascular: RRR, no significant murmur Gastrointestinal: soft, positive bowel sounds Musculoskeletal: no edema, pulses present Neurological: non-focal, moves all 4 limbs Psychiatric: normal affect, A&O x 3 Deviation from normal: erythema not receding but decreased intensity; toe wound dressed Dx/Plan - Plan Plan: Cellulitis RLE s/p toe amputation s/p amputation R 2nd toe on 03/30 by podiatry for gangrene. Not compliant with outpatient abx post-op. s/p 600 mg clindamycin IV in ED. - clinically improving with clindamycin, will continue. no need to escalate therapy at this time. - consult to wound care for management of surgical site - PRN tylenol for pain control - ESR and CRP elevated - AICD not MRI compatible, consider nuc med imaging to eval for osteomyelitis Type 2 Diabetes, poorly controlled Blood sugar > 400 per EMS, 250 on admission without intervention. Suspect chronic non-compliance, poor health literacy may be contributing factor. - continue lantus - will hold home glipizide due to JUANCHO - SSI - qACHS accucheks JUANCHO on CKD4 Cr 2.92 on admission, appears baseline is close to 2.2. - Cr improved on IVF, stopped after improvement but Cr increasing again this AM - reports good oral intake - will consider resuming 1/2 mIVF while giving antibiotics HFrEF AICD in place. EF 35-40% in 05/2019. Not on diuretic therapy outpatient. No signs of volume overload on exam today. - no signs of volume overload this AM but will continue to monitor HLD Aware - continue home statin Hx syncope - continue home midodrine CAD - continue ASA
[2020-04-06 07:19] LABS: Anion Gap 12 mmol/L (10-20); BUN (Urea Nitrogen) 26 mg/dL (8.4-25.7); Calc. Creatinine Clearance 38 mL/min (70-130); Calcium 8.9 mg/dL (7.8-10.44); Carbon Dioxide 25 mmol/L (22-29); Chloride 100 mmol/L (98-107); Estimated GFR-MDRD 28; Glucose 139 mg/dL (70-105); Potassium 4.3 mmol/L (3.5-5.1); Sodium 133 mmol/L (136-145)
[2020-04-06] MEDS: Carvedilol 6.25 MG TAB PO SCH (09:26)
[2020-04-06] MEDS: Enoxaparin Sodium 30 MG/0.3 ML SYRINGE SC SCH (09:29)
[2020-04-06] MEDS: Insulin Glargine 55 UNITS in Pre-Filled Syringe 1 EACH SC SCH (09:29)
[2020-04-06] MEDS: Gabapentin 300 MG CAP PO SCH ×2 (09:29→20:29)
[2020-04-06] MEDS: Icosapent Ethyl 1 GM CAPSULE PO SCH ×2 (09:30→17:50)
[2020-04-06] MEDS: Midodrine HCl 5 MG TAB PO SCH ×3 (09:34→20:29)
[2020-04-06] MEDS: Aspirin Chewable 81 MG TAB PO SCH (09:35)
[2020-04-06] MEDS: HumaLOG 300 UNITS/3 ML VIAL SC PRN ×3 (13:13→20:29)
--- NOTE | 2020-04-06 14:42 | PRG ---
DATE OF SERVICE: 04/06/2020 Mr. Durham' chest device is not MRI compatible. We will therefore proceed with a bone scan to consider the possibility of osteomyelitis given his significant elevation of sedimentation rate. Job ID: [id number]
[2020-04-06] MEDS: Lactated Ringer's 1,000 ML IV SCH (14:46)
[2020-04-06] MEDS: Acetaminophen 325 MG TAB PO PRN (18:08)
[2020-04-06] MEDS: Fenofibrate Nanocrystallized 145 MG TAB PO SCH (20:29)
[2020-04-06] MEDS: Rosuvastatin 20 MG TAB PO SCH (20:29)
[2020-04-07] MEDS: Clindamycin/D5W 600 MG in Premix Bag 1 BAG IVPB SCH ×3 (01:44→18:33)
[2020-04-07 05:51] LABS: #Basophils 0.1 thou/uL (0.0-0.2); #Eosinphils 0.2 thou/uL (0.0-0.7); #Lymphocytes 2.3 thou/uL (1.20-3.40); #Monocytes 0.6 thou/uL (0.11-0.59); #Neutrophils 4.7 thou/uL (1.40-6.50); %Basophils 0.9 % (0.0-1.0); %Eosinophils 2.8 % (0.0-10.0); %Lymphocytes 28.8 % (21.0-51.0); %Neutrophils 60.4 % (42.0-75.0); Hemoglobin 11.2 g/dL (14.0-18.0); Mean Corpuscular Hemoglobin 25.7 pg (27.0-31.0); Mean Corpuscular Volume 80.3 fL (78.0-98.0); Mean Platelet Volume 7.7 fL (7.4-10.4); Platelet Count 371 thou/uL (130-400); RBC Distribution Width 12.8 % (11.5-14.5); Red Blood Cell (RBC) Count 4.35 mill/uL (4.70-6.10); White Blood Cell (WBC) Count 7.9 thou/uL (4.8-10.8)
[2020-04-07 06:23] LABS: Anion Gap 13 mmol/L (10-20); BUN (Urea Nitrogen) 25 mg/dL (8.4-25.7); Calc. Creatinine Clearance 40 mL/min (70-130); Calcium 9.2 mg/dL (7.8-10.44); Carbon Dioxide 22 mmol/L (22-29); Chloride 104 mmol/L (98-107); Estimated GFR-MDRD 29; Glucose 86 mg/dL (70-105); Potassium 4.4 mmol/L (3.5-5.1); Sodium 135 mmol/L (136-145)
--- NOTE | 2020-04-07 08:11 | PDOC.FM ---
- Subjective Subjective: No acute overnight events. Pain and erythema R foot continue to improve. No fever, chills. Resting comfortably without complaint. Eating and drinking well. - Objective Vital Signs & Weight: Vital Signs (12 hours) Temp Pulse Resp BP Pulse Ox 04/07/20 07:29 97.5 F L 83 18 100/68 99 04/07/20 04:00 97.7 F 71 18 99/67 99 Weight Admit Weight 78.517 kg Weight 78.517 kg I&O: 04/06/20 04/07/20 04/08/20 06:59 06:59 06:59 Intake Total 2200 1280 Output Total 1400 1580 Balance 800 -300 Result Diagrams: 04/07/20 05:29 04/07/20 05:29 Phys Exam - Physical Examination Constitutional: NAD HEENT: moist MMs Respiratory: clear to auscultation bilateral Cardiovascular: RRR Musculoskeletal: no edema 1+ DP pulse bilaterally Neurological: non-focal, moves all 4 limbs Psychiatric: normal affect, A&O x 3 Deviation from normal: receding erythema R foot Dx/Plan - Plan Plan: Cellulitis RLE s/p toe amputation s/p amputation R 2nd toe on 03/30 by podiatry for gangrene. Not compliant with outpatient abx post-op. s/p 600 mg clindamycin IV in ED. - clinically improving with clindamycin, will continue. no need to escalate therapy at this time. - consult to wound care for management of surgical site - PRN tylenol for pain control - ESR and CRP elevated - AICD not MRI compatible, f/u nuc med imaging to eval for osteomyelitis - will also get arterial dopplers to evaluate circulation Type 2 Diabetes, poorly controlled Blood sugar > 400 per EMS, 250 on admission without intervention. Suspect chr onic non-compliance, poor health literacy may be contributing factor. - continue lantus - will hold home glipizide due to JUANCHO - SSI - qACHS accucheks JUANCHO on CKD4 Cr 2.92 on admission, appears baseline is close to 2.2. - Cr improved on IVF, stopped after improvement but Cr increasing again this AM - reports good oral intake - will consider resuming 1/2 mIVF while giving antibiotics HFrEF AICD in place. EF 35-40% in 05/2019. Not on diuretic therapy outpatient. No signs of volume overload on exam today. - no signs of volume overload this AM but will continue to monitor HLD Aware - continue home statin Hx syncope - continue home midodrine CAD - continue ASA
[2020-04-07] MEDS: Icosapent Ethyl 1 GM CAPSULE PO SCH ×2 (08:35→19:07)
[2020-04-07] MEDS: Midodrine HCl 5 MG TAB PO SCH ×3 (08:36→20:49)
[2020-04-07] MEDS: Gabapentin 300 MG CAP PO SCH ×2 (08:36→20:50)
[2020-04-07] MEDS: Aspirin Chewable 81 MG TAB PO SCH (08:36)
[2020-04-07] MEDS: Enoxaparin Sodium 30 MG/0.3 ML SYRINGE SC SCH (08:37)
[2020-04-07] MEDS: Insulin Glargine 55 UNITS in Pre-Filled Syringe 1 EACH SC SCH ×2 (08:37→08:53)
[2020-04-07] MEDS: Carvedilol 6.25 MG TAB PO SCH (08:52)
[2020-04-07] MEDS: Lactated Ringer's 1,000 ML IV SCH ×2 (11:27→11:29)
--- NOTE | 2020-04-07 12:54 | PRG ---
DATE OF SERVICE: 04/07/2020 Samuel is as usual, cheerful himself. I have reviewed Samuel's admissions for the last year or so. He has had several amputations of toes. I also noted he had an arterial Doppler done over a year ago, which did not show significant PAD that required revascularization. However, since it has been over a year and his diabetic control has to his noncompliance been poor, I suggest that we repeat an arterial Doppler to see if this is causing his recurrent toe infections. Followup often by amputation. We are also going to order a bone scan to rule out the possibility of osteomyelitis of his toe given his extremely high sedimentation rate. Job ID: [id number]
--- NOTE | 2020-04-07 14:17 | ULT ---
BILATERAL LOWER EXTREMITY ARTERIAL DOPPLER STUDY: 04/07/20 Ultrasound Doppler study is performed on the arteries of both lower extremities. Color Doppler and sp ectral analysis and velocity recordings obtained at all segments. INDICATIONS: Peripheral arterial disease. RIGHT LOWER EXTREMITY: Normal triphasic waveform seen in the right common femoral artery, superficial femoral artery, poplit eal artery, and anterior tibial artery. The velocities appear symmetric throughout these vessels. There is a monophasic waveform in the right posterior tibial artery and dorsalis pedis artery. LEFT LOWER EXTREMITY: Left common femoral artery reveals a normal triphasic waveform. The left superficial femoral artery, popliteal artery, and anterior tibial artery reveal a biphasic w aveform. Velocities are symmetric throughout these vessels. The left posterior tibial artery and dorsalis pedis artery reveal a monophasic waveform although velo cities are sustained. IMPRESSION: Evidence of significant peripheral arterial occlusive disease below the knee bilaterally involving th e bilateral posterior tibial arteries. POS: AGW
--- NOTE | 2020-04-07 14:37 | NM ---
NM Bone Scan Three Phase History: Right foot osteomyelitis Comparison: Finger radiograph April 04, 2020 Findings: Blood flow, blood pool and delayed images of the right foot along with delayed whole-body i maging was obtained. There is mild increased flow and blood pool within the right foot is not unexpected given recent surg tessy. On the delayed phase there is no abnormal uptake within the right second toe amputation margin. There is, however, improving uptake within the left foot indicating resolving osteomyelitis w heath was seen back in August 2019. Impression: 1. Mild postsurgical hyperemia of the right foot and cellulitis of the forefoot. 2. No evidence for right foot amputation margin osteomyelitis. 3. Improving left foot osteomyelitis.
[2020-04-07] MEDS: HumaLOG 300 UNITS/3 ML VIAL SC PRN ×2 (15:46→20:50)
[2020-04-07] MEDS: Fenofibrate Nanocrystallized 145 MG TAB PO SCH (20:50)
[2020-04-07] MEDS: Rosuvastatin 20 MG TAB PO SCH (20:50)
[2020-04-08] MEDS: Clindamycin/D5W 600 MG in Premix Bag 1 BAG IVPB SCH ×3 (01:57→16:56)
[2020-04-08] MEDS: Lactated Ringer's 1,000 ML IV SCH (04:49)
[2020-04-08 05:56] LABS: #Basophils 0.1 thou/uL (0.0-0.2); #Eosinphils 0.2 thou/uL (0.0-0.7); #Lymphocytes 2.4 thou/uL (1.20-3.40); #Monocytes 0.5 thou/uL (0.11-0.59); #Neutrophils 4.2 thou/uL (1.40-6.50); %Basophils 0.8 % (0.0-1.0); %Lymphocytes 32.5 % (21.0-51.0); %Monocytes 6.4 % (0.0-10.0); %Neutrophils 57.2 % (42.0-75.0); Hemoglobin 11.7 g/dL (14.0-18.0); Mean Corpuscular HGB CONC 33.6 g/dL (32.0-36.0); Mean Corpuscular Hemoglobin 26.6 pg (27.0-31.0); Mean Corpuscular Volume 79.3 fL (78.0-98.0); Mean Platelet Volume 7.9 fL (7.4-10.4); Platelet Count 385 thou/uL (130-400); RBC Distribution Width 12.8 % (11.5-14.5); Red Blood Cell (RBC) Count 4.38 mill/uL (4.70-6.10); White Blood Cell (WBC) Count 7.3 thou/uL (4.8-10.8)
--- NOTE | 2020-04-08 06:02 | PDOC.FM ---
- Subjective Subjective: Patient feeling well this AM. pain well controlled, no acute concerns - Objective Vital Signs & Weight: Vital Signs (12 hours) Temp Pulse Resp BP Pulse Ox 04/07/20 20:00 97.8 F 71 18 142/89 H 100 Weight Admit Weight 78.517 kg Weight 78.517 kg I&O: 04/06/20 04/07/20 04/08/20 06:59 06:59 06:59 Intake Total 2200 1280 Output Total 1400 1580 Balance 800 -300 Result Diagrams: 04/09/20 06:00 04/09/20 06:00 Phys Exam - Physical Examination Constitutional: NAD Respiratory: no wheezing, no rales, no rhonchi Cardiovascular: RRR Gastrointestinal: soft, non-tender, no distention R side 2nd toe amputation, L side middle 3 toes amputated Psychiatric: normal affect, A&O x 3 Deviation from normal: Erythema decreased below demarcation on R foot Dx/Plan - Plan Plan: Cellulitis RLE s/p toe amputation s/p amputation R 2nd toe on 03/30 by podiatry for gangrene. Not compliant with outpatient abx post-op. s/p 600 mg clindamycin IV in ED. - clinically improving with clindamycin, will continue. no need to escalate therapy at this time. - consult to wound care for management of surgical site - PRN tylenol for pain control - ESR and CRP elevated - Bone scan showing no R foot osteo, improving L foot osteo - arterial dopplers show poor circulation Type 2 Diabetes, poorly controlled Blood sugar > 400 per EMS, 250 on admission without intervention. Suspect chronic non-compliance, poor health literacy may be contributing factor. - continue lantus - will hold home glipizide due to JUANCHO - SSI - qACHS accucheks JUANCHO on CKD4 Cr 2.92 on admission, appears baseline is close to 2.2. - reports good oral intake - on 50 cc/hr LR mIVF HFrEF AICD in place. EF 35-40% in 05/2019. Not on diuretic therapy outpatient. No signs of volume overload on exam today. - no signs of volume overload this AM but will continue to monitor HLD Aware - continue home statin Hx syncope - continue home midodrine CAD - continue ASA Addendum - Attending - Attending Attestation Date/Time: 04/09/20 [id number] I personally evaluated the patient and discussed the management with Dr. Maravilla I agree with the History, Examination, Assessment and Plan documented above with any addition or exceptions noted below.
[2020-04-08 06:24] LABS: Anion Gap 11 mmol/L (10-20); BUN (Urea Nitrogen) 25 mg/dL (8.4-25.7); Calc. Creatinine Clearance 42 mL/min (70-130); Calcium 8.9 mg/dL (7.8-10.44); Carbon Dioxide 24 mmol/L (22-29); Chloride 104 mmol/L (98-107); Estimated GFR-MDRD 32; Glucose 137 mg/dL (70-105); Sodium 134 mmol/L (136-145)
[2020-04-08] MEDS: Carvedilol 6.25 MG TAB PO SCH (07:44)
[2020-04-08] MEDS: Aspirin Chewable 81 MG TAB PO SCH (09:18)
[2020-04-08] MEDS: Enoxaparin Sodium 30 MG/0.3 ML SYRINGE SC SCH (09:18)
[2020-04-08] MEDS: Midodrine HCl 5 MG TAB PO SCH ×3 (09:18→21:01)
[2020-04-08] MEDS: Gabapentin 300 MG CAP PO SCH ×2 (09:18→21:01)
[2020-04-08] MEDS: Icosapent Ethyl 1 GM CAPSULE PO SCH ×2 (09:18→16:56)
[2020-04-08] MEDS: Insulin Glargine 60 UNITS in Pre-Filled Syringe 1 EACH SC SCH (09:27)
[2020-04-08] MEDS: HumaLOG 300 UNITS/3 ML VIAL SC PRN ×3 (12:39→21:01)
[2020-04-08] MEDS: Rosuvastatin 20 MG TAB PO SCH (21:00)
[2020-04-08] MEDS: Fenofibrate Nanocrystallized 145 MG TAB PO SCH (21:00)
[2020-04-09] MEDS: Clindamycin/D5W 600 MG in Premix Bag 1 BAG IVPB SCH ×3 (01:17→13:50)
[2020-04-09] MEDS: Lactated Ringer's 1,000 ML IV SCH (01:17)
--- NOTE | 2020-04-09 04:35 | PDOC.FM ---
- Subjective Subjective: Patient reports that he is doing well with no acute concerns today. No foot or leg pain. - Objective Vital Signs & Weight: Vital Signs (12 hours) Temp Pulse Resp BP Pulse Ox 04/08/20 20:00 97 04/08/20 19:52 98.1 F 71 20 134/80 99 Weight Admit Weight 78.517 kg Weight 78.517 kg I&O: 04/07/20 04/08/20 04/09/20 06:59 06:59 06:59 Intake Total 1280 474 Output Total 1580 975 Balance -300 -501 Result Diagrams: 04/09/20 06:00 04/09/20 06:00 Phys Exam - Physical Examination Constitutional: NAD Respiratory: no wheezing, no rales, no rhonchi, clear to auscultation bilateral Cardiovascular: RRR, no significant murmur, no rub Gastrointestinal: soft, non-tender, no distention, positive bowel sounds toe amputations blt Deviation from normal: minimal erythema over R foot, bandage CDI Dx/Plan - Plan Plan: Cellulitis RLE s/p toe amputation s/p amputation R 2nd toe on 03/30 by podiatry for gangrene. Not compliant with outpatient abx post-op. s/p 600 mg clindamycin IV in ED. - clinically improving with clindamycin, will continue. no need to escalate therapy at this time. - consult to wound care for management of surgical site - PRN tylenol for pain control - ESR and CRP elevated - Bone scan showing no R foot osteo, improving L foot osteo - arterial dopplers show poor circulation - will need abx on discharge, complicated by L foot osteo Type 2 Diabetes, poorly controlled Blood sugar > 400 per EMS, 250 on admission without intervention. Suspect chronic non-compliance, poor health literacy may be contributing factor. - continue lantus - will hold home glipizide due to JUANCHO - SSI - qACHS accucheks JUANCHO on CKD4 Cr 2.92 on admission, appears baseline is close to 2.2. - reports good oral intake - on 50 cc/hr LR mIVF HFrEF AICD in place. EF 35-40% in 05/2019. Not on diuretic therapy outpatient. No sign s of volume overload on exam today. - no signs of volume overload this AM but will continue to monitor HLD Aware - continue home statin Hx syncope - continue home midodrine CAD - continue ASA Addendum - Attending - Attending Attestation Date/Time: 04/09/20 3624 I personally evaluated the patient and discussed the management with Dr. Maravilla I agree with the History, Examination, Assessment and Plan documented above with any addition or exceptions noted below.
[2020-04-09 06:15] LABS: #Basophils 0.1 thou/uL (0.0-0.2); #Eosinphils 0.2 thou/uL (0.0-0.7); #Lymphocytes 2.9 thou/uL (1.20-3.40); #Monocytes 0.6 thou/uL (0.11-0.59); #Neutrophils 4.8 thou/uL (1.40-6.50); %Basophils 0.8 % (0.0-1.0); %Eosinophils 2.8 % (0.0-10.0); %Monocytes 6.6 % (0.0-10.0); %Neutrophils 55.8 % (42.0-75.0); Hemoglobin 12.3 g/dL (14.0-18.0); Mean Corpuscular HGB CONC 32.7 g/dL (32.0-36.0); Mean Corpuscular Hemoglobin 26.3 pg (27.0-31.0); Mean Corpuscular Volume 80.5 fL (78.0-98.0); Mean Platelet Volume 7.6 fL (7.4-10.4); Platelet Count 437 thou/uL (130-400); RBC Distribution Width 12.8 % (11.5-14.5); Red Blood Cell (RBC) Count 4.68 mill/uL (4.70-6.10); White Blood Cell (WBC) Count 8.6 thou/uL (4.8-10.8)
[2020-04-09 06:37] LABS: Anion Gap 13 mmol/L (10-20); BUN (Urea Nitrogen) 25 mg/dL (8.4-25.7); Calc. Creatinine Clearance 39 mL/min (70-130); Calcium 9.6 mg/dL (7.8-10.44); Carbon Dioxide 23 mmol/L (22-29); Chloride 105 mmol/L (98-107); Estimated GFR-MDRD 29; Glucose 149 mg/dL (70-105); Potassium 4.6 mmol/L (3.5-5.1); Sodium 136 mmol/L (136-145)
[2020-04-09] MEDS: Carvedilol 6.25 MG TAB PO SCH (08:50)
[2020-04-09] MEDS: Aspirin Chewable 81 MG TAB PO SCH (08:50)
[2020-04-09] MEDS: Insulin Glargine 60 UNITS in Pre-Filled Syringe 1 EACH SC SCH (08:51)
[2020-04-09] MEDS: Gabapentin 300 MG CAP PO SCH (08:51)
[2020-04-09] MEDS: Icosapent Ethyl 1 GM CAPSULE PO SCH (08:51)
[2020-04-09] MEDS: Midodrine HCl 5 MG TAB PO SCH (08:51)
[2020-04-09] MEDS: Enoxaparin Sodium 30 MG/0.3 ML SYRINGE SC SCH (08:51)
[2020-04-09] MEDS: HumaLOG 300 UNITS/3 ML VIAL SC PRN (11:58)
[2020-04-09 14:58] VITALS: BP 122/77; TEMP 97.3
== END 2020-04-09 15:19 | disposition home or self-care (01) | DRG 863 ==
LOC: ERS 06:15 → T4-B 07:25
PROVIDERS: ADMIT Family Medicine; ATTEND Family Medicine
DX: T81.49XA Infection following a procedure, other surgical site, initial encounter (principal); L03.115 Cellulitis of right lower limb; I50.22 Chronic systolic (congestive) heart failure; N17.9 Acute kidney failure, unspecified; I13.0 Hypertensive heart and chronic kidney disease with heart failure and stage 1 through stage 4 chronic kidney disease, or unspecified chronic kidney disease; N18.4 Chronic kidney disease, stage 4 (severe); E78.5 Hyperlipidemia, unspecified; E11.22 Type 2 diabetes mellitus with diabetic chronic kidney disease; E11.65 Type 2 diabetes mellitus with hyperglycemia; I25.10 Atherosclerotic heart disease of native coronary artery without angina pectoris; J44.9 Chronic obstructive pulmonary disease, unspecified; H44.9 Unspecified disorder of globe; Z95.1 Presence of aortocoronary bypass graft; I25.2 Old myocardial infarction; Z90.49 Acquired absence of other specified parts of digestive tract; Z79.82 Long term (current) use of aspirin; Z79.4 Long term (current) use of insulin; Z79.899 Other long term (current) drug therapy; Z87.891 Personal history of nicotine dependence; Z20.828 Contact with and (suspected) exposure to other viral communicable diseases
CPT/HCPCS: 36415; 36416; 78315; 80048; 80053; 85025; 85652; 86140; 87040; 87635; 90471; 90662; 90670; 93923; 96365; A9503; G0008; G0009; J1650; J1815; J3490; U0003

== ENCOUNTER 2020-05-04 20:12 | Observation (INO) | payer MEDICARE, MEDICAID ==
[2020-05-04] MEDS ORDERED: Morphine 4 MG/ML VIAL ONE (20:39)
[2020-05-04 20:46] LABS: #Monocytes 0.5 thou/uL (0.11-0.59); #Neutrophils 11.2 thou/uL (1.40-6.50); %Basophils 0.2 % (0.0-1.0); %Lymphocytes 7.6 % (21.0-51.0); %Monocytes 3.9 % (0.0-10.0); %Neutrophils 88.4 % (42.0-75.0); Hemoglobin 10.6 g/dL (14.0-18.0); Mean Corpuscular HGB CONC 33.7 g/dL (32.0-36.0); Mean Corpuscular Hemoglobin 25.8 pg (27.0-31.0); Mean Corpuscular Volume 76.6 fL (78.0-98.0); Platelet Count 341 thou/uL (130-400); RBC Distribution Width 13.3 % (11.5-14.5); Red Blood Cell (RBC) Count 4.12 mill/uL (4.70-6.10); White Blood Cell (WBC) Count 12.7 thou/uL (4.8-10.8)
[2020-05-04 21:09] LABS: ALT (SGPT) Less than 7 U/L (8-55); AST (SGOT) 14 U/L (5-34); Albumin 3.6 g/dL (3.5-5.0); Alkaline Phosphatase 32 U/L (40-110); Anion Gap 16 mmol/L (10-20); BUN (Urea Nitrogen) 40 mg/dL (8.4-25.7); Bilirubin, Total 0.3 mg/dL (0.2-1.2); Calc. Creatinine Clearance 0 mL/min (70-130); Calcium 8.7 mg/dL (7.8-10.44); Carbon Dioxide 20 mmol/L (22-29); Chloride 95 mmol/L (98-107); Estimated GFR-MDRD 21; Globulin 3.7 g/dL (2.4-3.5); Potassium 5.9 mmol/L (3.5-5.1); Protein, Total 7.3 g/dL (6.0-8.3); Sodium 125 mmol/L (136-145)
[2020-05-04 21:23] LABS: Glucose 621 mg/dL (70-105)
[2020-05-04] MEDS ORDERED: INSULIN REGULAR IN 0.9 % NACL 100 UNIT/100 ML BAG ONE (21:31)
[2020-05-04] MEDS ORDERED: Insulin Regular 300 UNITS/3 ML VIAL ONE (21:33)
[2020-05-04 21:38] LABS: Actual Bicarbonate (HCO3v) 19 mEq/L (22-28); Analyzer IN Cardio ER; Base Excess -4.8 mEq/L (-2.0 to +3.0); Calcium, Ionized (venous) 1.05 mmol/L (1.16-1.32); Chloride (VBG) 99 mmol/L (98-106); Sodium 125.9 mmol/L (133-146); pH (venous) 7.42 (7.32-7.43)
[2020-05-04] MEDS ORDERED: Dextrose 50% Abboject 50 ML SYRINGE SLOW IVP PRN (22:28)
[2020-05-04] MEDS ORDERED: Acetaminophen 650 MG Suppository PR PRN (22:28)
[2020-05-04] MEDS ORDERED: Ondansetron ODT 4 MG TAB PO PRN (22:28)
[2020-05-04] MEDS ORDERED: Dextrose 5% in Water 1,000 ML IV PRN (22:28)
[2020-05-04] MEDS ORDERED: Ondansetron PF 4 MG/2 ML Vial IVP PRN (22:28)
[2020-05-04] MEDS ORDERED: Lactated Ringer's 1,000 ML IV SCH (22:30)
--- NOTE | 2020-05-04 23:23 | PDOC.FPRHP ---
- History of Present Illness Chief Complaint: weakness History of Present Illness: 54 yo M with a history of osteomyelitis, DMII, CAD, CKD4, HFrEF presenting for weakness. Patient had revision of R 2nd metatarsal amputation performed on 05/[address] Cosby. Patient typically takes 60 units lantus in AM but did not take u ntil following surgery this afternoon. After arriving home patient began feeling unwell and weak, explaining he was walking to the bathroom and his "legs gave out" and he fell to his knees, unable to get up or move around. Family called EMS. In the ED patient was afebrile, tachycardic with a HR 100-110s, and had a glucose of 621, K of 5.9, and B-hydroxybutyrate of 0.34. Patient received 10 units of regular insulin and his repeat glucose was 355. He denies any headache, nausea, vomiting, abdominal pain, or diarrhea. Patient reports eating a salad today. - Allergies/Adverse Reactions Allergies Allergy/AdvReac Type Severity Reaction Status Date / Time No Known Drug Allergies Allergy Verified 04/04/20 09:49 - Home Medications Medication Instructions Recorded Confirmed Type Rosuvastatin [Crestor] 20 mg PO HS 30 Days #30 tab 02/02/20 05/11/20 Rx Fenofibrate Nanocrystallized 145 mg PO HS 03/03/20 05/11/20 History [Fenofibrate] Aspirin [Ecotrin Low Strength] 81 mg PO DAILY 05/05/20 05/11/20 History Carvedilol 3.125 mg PO DAILY 05/05/20 05/11/20 History HYDROcodone Bit/APAP 7.5/325 7.5 mg PO Q4HR PRN 05/11/20 05/11/20 History [[facility]] Icosapent Ethyl [Vascepa] 0.5 gm PO BID 05/11/20 05/11/20 History Amoxicillin [Amoxil] 500 mg PO BID #34 cap 05/16/20 Rx Ascorbic Acid [Vitamin C] 1,000 mg PO DAILY #30 tab 05/16/20 Rx Ferrous Sulfate [Feosol] 325 mg PO DAILY #30 tab 05/16/20 Rx Fluconazole [Diflucan] 200 mg PO DAILY #10 tab 05/16/20 Rx Gabapentin [Neurontin] 300 mg PO BID cap 05/16/20 Rx Insulin Detemir [Levemir Flextouch] 65 units SC DAILY #4 insuln.pen 05/16/20 05/11/20 Rx Levofloxacin [Levaquin] 750 mg PO 0600 #17 tab 05/16/20 Rx - History PMHx: CAD, LA, DMII, HLD, CKD4, HFrEF (35-40% 06/10), HTN, HLD, COPD PSHx: 4vessel CABG 2006, L knee, appendectomy, AICDx2 2005, amputation left 2-4 toes, right 2 toe - revision on 05/04 FHx: DM-Mom, daughter, sister Social: Denies tobacco, alcohol, or drug use - Review of Systems General: denies: fever/chills Eyes: denies: vision changes Respiratory: denies: cough, shortness of breath Cardiovascular: denies: chest pain, edema Gastrointestinal: denies: nausea, vomiting, diarrhea, constipation, abdominal pain Genitourinary: denies: dysuria, polyuria Skin: denies: rashes, itching Musculoskeletal: reports: pain Neurological: reports: weakness. denies: syncope - Vital signs BP: 148/88 HR: 104 RR: 18 Tmax: 97.3 Pox: 100% on RA Wt: 73kg - Physical Exam Constitutional: NAD, awake, alert and oriented HEENT: normocephalic and atraumatic, EOMI, no scleral icterus, grossly normal vision, grossly normal hearing Neck: FROM Heart: RRR, no murmurs/rubs/gallops, pulses present, no edema Lungs: CTAB, no respiratory distress, no wheezing Abdomen: soft, non-tender, bowel sounds present, no masses/distention Musculoskeletal: ROM grossly normal Neurological: no focal deficit Skin: no rash/lesions Heme/Lymphatic: no unusual bruising or bleeding Psychiatric: normal mood and affect, good judgment and insight, intact recent and remote memory FMR H&P: Results - Labs Result Diagrams: 05/05/20 04:30 05/05/20 04:30 Lab results: WBC 12.7 thou/uL (4.8-10.8) H 05/04/20 20:38 Hgb 10.6 g/dL (14.0-18.0) L 05/04/20 20:38 Hct 31.6 % (42.0-52.0) L 05/04/20 20:38 MCV 76.6 fL (78.0-98.0) L 05/04/20 20:38 Plt Count 341 thou/uL (130-400) 05/04/20 20:38 Neutrophils % 88.4 % (42.0-75.0) H 05/04/20 20:38 VBG pH 7.42 (7.32-7.43) 05/04/20 21:35 VBG pCO2 29.7 mmHg (42.0-51.0) L 05/04/20 21:35 VBG pO2 46.7 mmHg (35.0-45.0) H 05/04/20 21:35 Sodium 125 mmol/L (136-145) L 05/04/20 20:38 Potassium 5.9 mmol/L (3.5-5.1) H 05/04/20 20:38 Chloride 95 mmol/L (98-107) L 05/04/20 20:38 Carbon Dioxide 20 mmol/L (22-29) L 05/04/20 20:38 BUN 40 mg/dL (8.4-25.7) H 05/04/20 20:38 Creatinine 3.11 mg/dL (0.7-1.3) H 05/04/20 20:38 Glucose 621 mg/dL (70-105) H* 05/04/20 20:38 Calcium 8.7 mg/dL (7.8-10.44) 05/04/20 20:38 Total Bilirubin 0.3 mg/dL (0.2-1.2) 05/04/20 20:38 AST 14 U/L (5-34) 05/04/20 20:38 ALT Less than 7 U/L (8-55) L 05/04/20 20:38 Alkaline Phosphatase 32 U/L (40-110) L 05/04/20 20:38 Serum Total Protein 7.3 g/dL (6.0-8.3) 05/04/20 20:38 Albumin 3.6 g/dL (3.5-5.0) 05/04/20 20:38 - EKG Interpretation EKst degree AVB FMR H&P: A/P - Plan 54 yo M with history of DMII and revision of 2nd R toe amputation on 05/04 presenting for weakness Hyperglycemia likely due to post-operative status -Glucose 621 -> 10 units regular -> 355 -No signs of ketosis, normal AG, normal Bhydroxy -UA pending to evaluate for ketones -serum Osm pending to evaluate for HHS though patient is not altered or somnolent -Na 125, corrected to 133 -Will resume home Lantus 60u in AM -Aggressive SSI -Accuchecks q4hrs -1 bag of LR at 150mL/hr, post 1L NS in ED Hyperkalemia -K 5.9, 5.2 -Improving on IVF Status post revision of Right 2nd metatarsal amputation -Suspicion for infection is low. Patient is post-op day 0. Afebrile. Will continue clindamycin prescribed by surgeon for post-op. -Procal pending -Wound care consulted Leukocytosis -WBC 12.7 -Likely due to hyperglycemic state. Low suspicion for infection. -Continue to monitor JUANCHO on CKD4 -Cr 3.11 on admission, baseline ~2.2 -Cr clearance 27, adjusted lovenox dose -Receive 1L NS in ED, Ordered 1L LR -Will continue to monitor HTN -Aware, continue home meds HLD -Aware, continue home meds CAD -Aware, continue home meds HFrEF -EF 35-40% 05/2019 -No signs of fluid overload at this time. Will continue to monitor closely. COPD -Aware, continue home meds DVT PPx: lovenox 30 Diet: CC Code: FULL PCP: Iraj Dispo: Discharge pending improvement of hyperglycemic state FMR H&P: Upper Level - Plan Date/Time: 05/04/20 [id number] Castillo Singh DO, have evaluated this patient and agree with findings/plan as outlined by internal affairs commander resident. Pertinent changes/additions are listed here. 54 yo w pmhx sig for osteomyelitis, IDDM, HFrEF He had a revision of toe amputation for osteo today. he reports pain in his foot and malaise. he did not take his basal insulin before surgery, but afterwords he did and ate a meal. that evening he started feeling poorly so came to ED. he currently reports feeling better, denies chest pain, fever, sob, weakness, or a bdominal pain. in the ED he was given 10u insulin, 1L NS. initial BG in the 600s, repeat 355. Cr elevated above baseline, corrected Na wnl, K elevated at 5.8, bhb .34, no anion gap . air battle manager grossly intact, no acute respiratory distress, heart rrr, no crackles, abd nttp, pulses intact throughout. tachycardia initially, which improved, BPs stable, afebrile. Hyperglycemia likely related to recent surg. with associated hyperkalemia and psuedohyponatremia, continue to correct with subq insulin, monitor BG and repeat BMP, continue IVF rescus. s/p revision for osteo, unlikely acute infection at this point, wbc elevated 2/2 hyperglycemia, monitor temp and obtain procal. careful fluid resuscitation 2/2 HFrEF. continue insulin regimen with aggressive sliding scale. tele obs for ELOS<48hrs. Addendum - Attending - Attending Attestation Date/Time: 05/29/20 1026 I personally evaluated the patient and discussed the management with Dr. Gibbs on 05/04/20. I agree with the History, Examination, Assessment and Plan documented above with any addition or exceptions noted below.
[2020-05-04 23:48] LABS: Anion Gap 13 mmol/L (10-20); BUN (Urea Nitrogen) 38 mg/dL (8.4-25.7); Calc. Creatinine Clearance 0 mL/min (70-130); Carbon Dioxide 23 mmol/L (22-29); Chloride 100 mmol/L (98-107); Estimated GFR-MDRD 24; Glucose 394 mg/dL (70-105); Potassium 5.2 mmol/L (3.5-5.1); Sodium 131 mmol/L (136-145)
[2020-05-05] MEDS: Acetaminophen 325 MG TAB PO PRN ×2 (01:04→10:59)
[2020-05-05 01:36] LABS: Bacteria/HPF None Seen HPF (None Seen); Bilirubin Negative (Negative); Blood, Urine 1+ (Negative); Clarity Clear (Clear); Glucose, Urine (Dipstick) Greater than 1000 mg/dL (Negative); Ketone, Urine Negative (Negative); Leukocyte Negative Leu/uL (Negative); Nitrite Negative (Negative); Protein, Urine (Dipstick) 50 mg/dL (Neg-Trace); RBC/HPF 0-3 HPF (0-3); Specific Gravity, Urine 1.016 (1.002-1.036); Squamous Epithelial None Seen HPF (0-3); Urobilinogen Normal mg/dL (Less than 2); WBC/HPF 0-3 HPF (0-3)
[2020-05-05 01:42] VITALS: BMI 25.5
[2020-05-05 05:01] LABS: #Lymphocytes 1.9 thou/uL (1.20-3.40); #Monocytes 0.7 thou/uL (0.11-0.59); #Neutrophils 8.4 thou/uL (1.40-6.50); %Basophils 0.4 % (0.0-1.0); %Monocytes 6.2 % (0.0-10.0); %Neutrophils 76.4 % (42.0-75.0); Hemoglobin 9.6 g/dL (14.0-18.0); Mean Corpuscular HGB CONC 33.9 g/dL (32.0-36.0); Mean Corpuscular Hemoglobin 25.8 pg (27.0-31.0); Mean Corpuscular Volume 76.3 fL (78.0-98.0); Mean Platelet Volume 7.7 fL (7.4-10.4); Platelet Count 328 thou/uL (130-400); RBC Distribution Width 12.9 % (11.5-14.5); Red Blood Cell (RBC) Count 3.72 mill/uL (4.70-6.10)
[2020-05-05 05:32] LABS: Anion Gap 13 mmol/L (10-20); BUN (Urea Nitrogen) 34 mg/dL (8.4-25.7); Calc. Creatinine Clearance 36 mL/min (70-130); Calcium 8.8 mg/dL (7.8-10.44); Carbon Dioxide 22 mmol/L (22-29); Chloride 102 mmol/L (98-107); Estimated GFR-MDRD 27; Glucose 261 mg/dL (70-105); Potassium 4.6 mmol/L (3.5-5.1); Sodium 132 mmol/L (136-145)
--- NOTE | 2020-05-05 06:13 | PDOC.FM ---
- Subjective Subjective: Patient reports R leg pain at surgery site and sleepiness is otherwise doing well. - Objective Vital Signs & Weight: Vital Signs (12 hours) Temp Pulse Resp BP Pulse Ox 05/05/20 00:29 98.3 F 108 H 18 117/80 98 Weight Weight 76.294 kg Result Diagrams: 05/05/20 04:30 05/05/20 04:30 Phys Exam - Physical Examination Constitutional: NAD Respiratory: no wheezing, no rales, no rhonchi, clear to auscultation bilateral Cardiovascular: RRR, no significant murmur, no rub Gastrointestinal: soft, non-tender, no distention R foot wrapped with YAJAIRA bandage Dx/Plan - Plan Plan: Hyperglycemia likely due to post-operative status - Resume home Lantus 60u this AM - Aggressive SSI - Accuchecks q4hrs - PO intake for patient Hyperkalemia- resolved - K 5.9, 5.2 -> 4.6 - Improving on IVF Status post revision of Right 2nd metatarsal amputation - Suspicion for infection is low. - Wound care consulted - Dr. Cosby recommends one dose Vancomycin inpatient with continued Clindamycin 600 mg PO Leukocytosis-resolved - WBC 12.7->11 JUANCHO on CKD4- improving - Cr 3.11 on admission, baseline ~2.2 - 2.4 this AM HTN - Aware, continue home meds HLD - Aware, continue home meds CAD - Aware, continue home meds HFrEF - EF 35-40% 05/2019 - No signs of fluid overload COPD - Aware, continue home meds DVT PPx: lovenox 30 Diet: CC Code: FULL PCP: Iraj Dispo: Discharge likely today with home insulin and PO intake Addendum - Attending - Attending Attestation Date/Time: 05/05/20 1230 I personally evaluated the patient and discussed the management with Dr. Maravilla. I agree with the History, Examination, Assessment and Plan documented above with any addition or exceptions noted below. Patient here due to noncompliance with insulin therapy. His glucose levels are improved. Hopeful to discharge later today if glucose remains stable.
[2020-05-05] MEDS: HumaLOG 300 UNITS/3 ML VIAL SC PRN ×3 (06:38→16:42)
[2020-05-05] MEDS ORDERED: Carvedilol 6.25 MG TAB PO SCH (07:30)
--- NOTE | 2020-05-05 08:32 | PDOC.BPN ---
- Brief Progress Note S: Rounded on patient as he is my clinic patient after being informed of his inpatient status. He reports to be feeling well after his surgery. He states his fasting sugars outpt have been in the 200s despite adherence to meds. No complaints at this time. States he feels ready to go home. O: vitals reviewed and wnl. pt is in no distress, no edema, no cyanosis, he has bandage in place on RLE. A/P: Hyperglycemia- likely 2/2 post op status. improving. dispo per primary team s/p amputation revision- doing well f/u outpt Thank you for notifying me of his inpatient status. Please do not hesitate to call me with any questions of his outpatient medical history.
[2020-05-05] MEDS ORDERED: Clindamycin 150 MG CAP PO SCH (09:00)
[2020-05-05] MEDS ORDERED: Enoxaparin Sodium 30 MG/0.3 ML SYRINGE SC SCH (09:00)
[2020-05-05] MEDS ORDERED: Gabapentin 300 MG CAP PO SCH (09:00)
[2020-05-05] MEDS ORDERED: Vancomycin 1 GM in Premix Bag 1 BAG IVPB SCH (09:00)
[2020-05-05] MEDS ORDERED: Aspirin 81 mg Enteric Coated Tablet PO SCH (09:00)
[2020-05-05] MEDS ORDERED: Enoxaparin Sodium 40 MG/0.4 ML SYRINGE SC SCH (09:00)
[2020-05-05] MEDS: Midodrine HCl 5 MG TAB PO SCH ×2 (10:54→14:03)
[2020-05-05] MEDS: Icosapent Ethyl 1 GM CAPSULE PO SCH ×2 (10:56→16:42)
[2020-05-05] MEDS: Clindamycin 150 MG CAP PO SCH ×2 (10:57→14:03)
[2020-05-05] MEDS ORDERED: Nitroglycerin 0.4 MG TAB 1 EACH SL PRN (12:33)
[2020-05-05] MEDS ORDERED: Insulin Glargine 60 UNITS in Pre-Filled Syringe 1 EACH SC SCH (12:45)
[2020-05-05 14:56] LABS: SARS-CoV-2 MS2 Positive; SARS-CoV-2 N Gene Negative; SARS-CoV-2 S Gene Negative; SARS-CoV-2 by NAA Not Detected (NotDetected); SARS-CoV-2 orf1ab Negative
[2020-05-05 15:51] VITALS: BP 114/75; TEMP 98.1
[2020-05-05] MEDS ORDERED: Rosuvastatin 20 MG TAB PO SCH (21:00)
[2020-05-05] MEDS ORDERED: Fenofibrate Nanocrystallized 145 MG TAB PO SCH (21:00)
[2020-05-06] MEDS ORDERED: Carvedilol 3.125 MG TAB PO SCH (07:30)
[2020-05-06] MEDS ORDERED: Non-Formulary Item 1 EACH (Insulin Detemir [Levemir Flextouch] 100 UNIT/ML Insuln.Pen) SC SCH (09:00)
[2020-05-06] MEDS ORDERED: Insulin Glargine 60 UNITS in Pre-Filled Syringe 1 EACH SC SCH (09:00)
--- NOTE | 2020-05-08 01:17 | DIS ---
DATE OF ADMISSION: 05/04/2020 DATE OF DISCHARGE: 05/05/2020 PRIMARY DIAGNOSIS: Hyperglycemia. SECONDARY DIAGNOSES: Hypokalemia, leukocytosis, acute kidney injury on chronic kidney disease 4, hypertension, hyperlipidemia, coronary artery disease, postoperative state of right 2nd metatarsal amputation, heart failure with reduced ejection fraction, chronic obstructive pulmonary disease. DISCHARGE MEDICATIONS: 1. Nitroglycerin 0.4 mg tablet sublingual q.5 minutes p.r.n. 2. Aspirin 81 mg p.o. daily. 3. Coreg 3.125 mg p.o. daily. 4. Vascepa 2 g p.o. b.i.d. with meals. 5. Midodrine 10 mg p.o. t.i.d. 6. Rosuvastatin 20 mg p.o. q.h.s. 7. Fenofibrate 145 mg p.o. q.h.s. 8. Insulin detemir 60 units subcutaneously daily. 9. Gabapentin 600 mg p.o. b.i.d. 10. Clindamycin 600 mg p.o. t.i.d. per resource protection specialist, status post surgery. HISTORY OF PRESENT ILLNESS/HOSPITAL COURSE: The patient is a 54-year-old man, who presented to the ER with complaints of malaise and lightheadedness. On admission, blood glucose was found to be in 621 with JUANCHO. Serum creatinine 3.11 after 2 L normal saline bolus and administration of 10 units of Novolin. The patient's blood sugar was 355. The patient continued to feel better. The next morning, the patient was restarted on home medications. Blood sugars were observed the next day to ensure control. The patient was given one dose of vancomycin per Dr. Cosby. The patient was resumed on prescribed medications of 600 mg t.i.d. clindamycin from Dr. Cosby. A new prescription was not sent in for this and the patient was instructed to take the prescription that he has already received. DISPOSITION: Stable. DISCHARGE INSTRUCTIONS: 1. Location: Home. 2. Diet: Diabetic consistent carb. 3. Activity: As tolerated, postop restrictions per Dr. Cosby. 4. Followup: Patient should follow up with Dr. Cosby in the scheduled appointment in one week. Patient should follow up with Dr. Darling [facility] within 2 weeks. Job ID: [id number] [facility]
--- NOTE | 2020-05-13 15:24 | EKG ---
Test Reason : Blood Pressure : / mmHG Vent. Rate : 109 BPM Atrial Rate : 109 BPM P-R Int : 210 ms QRS Dur : 094 ms QT Int : 312 ms P-R-T Axes : 070 -24 017 degrees QTc Int : 420 ms Sinus tachycardia with 1st degree A-V block Inferior infarct , age undetermined Abnormal ECG Confirmed by PHAN RICHARDSON, CHOCO Swenson ([id number]), writer editor BRENDAN CORDOBA ([id number]) on 05/13/2020 3:24:28 PM Referred By: Confirmed By:CHOCO CHISHOLM MD
== END 2020-05-05 19:00 | disposition home or self-care (01) ==
LOC: ERS 20:12 → 2SE 22:34
PROVIDERS: ADMIT Student in an Organized Health Care Education/Training Program; ATTEND Student in an Organized Health Care Education/Training Program
DX: E11.65 Type 2 diabetes mellitus with hyperglycemia (principal); I13.0 Hypertensive heart and chronic kidney disease with heart failure and stage 1 through stage 4 chronic kidney disease, or unspecified chronic kidney disease; E11.22 Type 2 diabetes mellitus with diabetic chronic kidney disease; N18.4 Chronic kidney disease, stage 4 (severe); I50.20 Unspecified systolic (congestive) heart failure; N17.9 Acute kidney failure, unspecified; I25.10 Atherosclerotic heart disease of native coronary artery without angina pectoris; M86.9 Osteomyelitis, unspecified; J44.9 Chronic obstructive pulmonary disease, unspecified; E78.5 Hyperlipidemia, unspecified; E87.6 Hypokalemia; D72.829 Elevated white blood cell count, unspecified; Z20.828 Contact with and (suspected) exposure to other viral communicable diseases; Z79.4 Long term (current) use of insulin; Z79.82 Long term (current) use of aspirin; Z79.899 Other long term (current) drug therapy; Z95.1 Presence of aortocoronary bypass graft; Z95.810 Presence of automatic (implantable) cardiac defibrillator; Z89.422 Acquired absence of other left toe(s)
CPT/HCPCS: 80048 ×2; 80053; 81001; 82010; 82805; 82962 ×2; 83930; 84145; 85025 ×2; 93005; 96374; 96375; 97139; 99285; U0003; 36415; 36416; 87635; 96365; 96372; G0378; J1650; J1815; J2270; J3370

== ENCOUNTER 2020-05-10 13:50 | Inpatient (IN) | payer MEDICARE, MEDICAID ==
[2020-05-10 14:58] LABS: #Basophils 0.1 thou/uL (0.0-0.2); #Eosinphils 0.1 thou/uL (0.0-0.7); #Lymphocytes 1.9 thou/uL (1.20-3.40); #Monocytes 0.3 thou/uL (0.11-0.59); #Neutrophils 4.4 thou/uL (1.40-6.50); %Basophils 0.9 % (0.0-1.0); %Eosinophils 1.6 % (0.0-10.0); %Lymphocytes 28.6 % (21.0-51.0); %Monocytes 3.7 % (0.0-10.0); %Neutrophils 65.2 % (42.0-75.0); Hemoglobin 11.9 g/dL (14.0-18.0); Mean Corpuscular HGB CONC 32.6 g/dL (32.0-36.0); Mean Corpuscular Hemoglobin 24.9 pg (27.0-31.0); Mean Corpuscular Volume 76.5 fL (78.0-98.0); Mean Platelet Volume 7.8 fL (7.4-10.4); Platelet Count 414 thou/uL (130-400); RBC Distribution Width 13.7 % (11.5-14.5); Red Blood Cell (RBC) Count 4.78 mill/uL (4.70-6.10); White Blood Cell (WBC) Count 6.7 thou/uL (4.8-10.8)
[2020-05-10 15:21] LABS: ALT (SGPT) 8 U/L (8-55); AST (SGOT) 13 U/L (5-34); Albumin 3.7 g/dL (3.5-5.0); Alkaline Phosphatase 39 U/L (40-110); Anion Gap 13 mmol/L (10-20); BUN (Urea Nitrogen) 36 mg/dL (8.4-25.7); Bilirubin, Total 0.3 mg/dL (0.2-1.2); Calc. Creatinine Clearance 0 mL/min (70-130); Calcium 9.2 mg/dL (7.8-10.44); Carbon Dioxide 22 mmol/L (22-29); Chloride 98 mmol/L (98-107); Estimated GFR-MDRD 24; Globulin 4.1 g/dL (2.4-3.5); Glucose 534 mg/dL (70-105); Potassium 5.2 mmol/L (3.5-5.1); Protein, Total 7.8 g/dL (6.0-8.3); Sodium 128 mmol/L (136-145)
[2020-05-10] MEDS ORDERED: Clindamycin/D5W 900 mg/50 ml Premix Bag ONE (17:05)
[2020-05-10] MEDS ORDERED: Cefepime 2 GM VIAL ONE (17:05)
--- NOTE | 2020-05-10 17:48 | PDOC.FPRHP ---
- History of Present Illness Chief Complaint: foot infection History of Present Illness: 54 y/o M with PMHx T2DM, CAD, HFrEF s/p defibrillator who presents for infection of R foot. He had amputation of R second toe in 03/2020, with recent revision on 05/04. Home health has apparently been following his care, and was recommended to come in to the hospital for further evaluation due to reported purulent drainage from the wound. Denies fever, chills, malaise. Endorses R foot pain extending from his surgical site to his ankle. He was prescribed clindamycin and levaquin in the outpatient setting. Taking clindamycin BID instead of TID as prescribed, discontinued levaquin after 2 doses due to GI upset and a nosebleed that he thought were related to the levaquin. Reports he had nausea, abd pain 2 days ago after taking the levaquin. Denies vomiting, diarrhea, constipation, dysuria. States he has been compliant with insulin outpatient. He uses a flexpen. States his senior quality methods specialist told him to increase by 12 units when he is ill. Reports he took 63 units instead of 60 units this morning. Thought his blood sugar was in the 200-300s outpatient. ED Course: BS 534, no anion gap, 2 L NS XR foot - soft tissue swelling clindamycin, vanc, cefepime stitches removed & cx collected from post-surgical foot wound - Allergies/Adverse Reactions Allergies Allergy/AdvReac Type Severity Reaction Status Date / Time No Known Drug Allergies Allergy Verified 04/04/20 09:49 - Home Medications Medication Instructions Recorded Confirmed Type Nitroglycerin 0.4 mg SL Q5MIN PRN 03/02/15 05/05/20 History Aspirin Chewable [Aspirin Chewable 81 mg PO DAILY tab 11/28/18 05/05/20 Rx Tablet] Carvedilol [Coreg] 3.125 mg PO DAILY-AC #30 tab 02/02/20 05/05/20 Rx Icosapent Ethyl [Vascepa] 2 gm PO BID-AC #60 capsule 02/02/20 05/05/20 Rx Midodrine HCl [ProAmatine] 10 mg PO TID #90 tab 02/02/20 05/05/20 Rx Rosuvastatin [Crestor] 20 mg PO HS 30 Days #30 tab 02/02/20 05/05/20 Rx Fenofibrate Nanocrystallized 145 mg PO HS 03/03/20 05/05/20 History [Fenofibrate] Insulin Detemir [Levemir Flextouch] 60 units SC DAILY #4 insuln.pen 04/09/20 05/05/20 Rx Gabapentin 600 mg PO BID 05/03/20 05/05/20 History Acetaminophen [Tylenol Regular 650 mg PO Q4H PRN tab 05/05/20 Rx Strength] Aspirin [Ecotrin Low Strength] 81 mg PO DAILY 05/05/20 05/05/20 History Carvedilol 3.125 mg PO DAILY 05/05/20 05/05/20 History Clindamycin [Cleocin] 300 mg PO TID cap 05/05/20 Rx - History PMHx: DMII, HFrEF, HLD, COPD, HTN, Hx of MT, CABG in 2005 PSHx: CABG in 2005, knee surgery, 4 toe amputations, appendectomy, defibrillator placement FHx: DMII Social: Former smoker 2ppd for 40yrs, quit in 2005. Denies alcohol, drug use. - Review of Systems General: denies: fever/chills, fatigue Eyes: denies: eye pain, vision changes ENT: denies: nasal congestion, rhinorrhea Respiratory: denies: cough, congestion, shortness of breath Cardiovascular: denies: chest pain, palpitation, edema Gastrointestinal: reports: abdominal pain. denies: nausea, vomiting, diarrhea, constipation Genitourinary: denies: dysuria, polyuria Skin: reports: other (wound drainage). denies: rashes Musculoskeletal: reports: pain, swelling Neurological: denies: syncope, weakness Psychological: denies: anxiety, depression - Vital signs BP: 129/77, HR 96, R 16, 100% on RA, 98.1 F , Wt 78 kg - Physical Exam Constitutional: NAD, awake, alert and oriented, well developed HEENT: normocephalic and atraumatic, conjunctiva clear, no scleral icterus, grossly normal vision, grossly normal hearing Neck: supple Chest: no-tender to palpation Heart: RRR, no murmurs/rubs/gallops Lungs: CTAB, no respiratory distress, no rales/rhonchi, no wheezing Abdomen: soft, bowel sounds present -Abdomen: mild tenderness over lower abd without rebound or guarding Musculoskeletal: other (surgical absence of L 2nd-4th toes, healed; surgical absence of R 2nd toe, covered with dressing) Neurological: no focal deficit Skin: good turgor Heme/Lymphatic: no unusual bruising or bleeding Psychiatric: normal mood and affect, intact recent and remote memory FMR H&P: Results - Labs Result Diagrams: 05/10/20 14:43 05/10/20 14:43 Lab results: WBC 6.7 thou/uL (4.8-10.8) 05/10/20 14:43 Hgb 11.9 g/dL (14.0-18.0) L 05/10/20 14:43 Hct 36.6 % (42.0-52.0) L 05/10/20 14:43 MCV 76.5 fL (78.0-98.0) L 05/10/20 14:43 Plt Count 414 thou/uL (130-400) H 05/10/20 14:43 Neutrophils % 65.2 % (42.0-75.0) 05/10/20 14:43 Sodium 128 mmol/L (136-145) L 05/10/20 14:43 Potassium 5.2 mmol/L (3.5-5.1) H 05/10/20 14:43 Chloride 98 mmol/L (98-107) 05/10/20 14:43 Carbon Dioxide 22 mmol/L (22-29) 05/10/20 14:43 BUN 36 mg/dL (8.4-25.7) H 05/10/20 14:43 Creatinine 2.79 mg/dL (0.7-1.3) H 05/10/20 14:43 Glucose 534 mg/dL (70-105) H 05/10/20 14:43 Lactic Acid 1.2 mmol/L (0.5-2.2) 05/10/20 14:43 Calcium 9.2 mg/dL (7.8-10.44) 05/10/20 14:43 Total Bilirubin 0.3 mg/dL (0.2-1.2) 05/10/20 14:43 AST 13 U/L (5-34) 05/10/20 14:43 ALT 8 U/L (8-55) 05/10/20 14:43 Alkaline Phosphatase 39 U/L (40-110) L 05/10/20 14:43 Serum Total Protein 7.8 g/dL (6.0-8.3) 05/10/20 14:43 Albumin 3.7 g/dL (3.5-5.0) 05/10/20 14:43 FMR H&P: A/P - Plan Diabetic Foot Infection s/p toe amputation R 2nd toe amputation in 03/2020 with recent revision on 05/04/2020 by podiatry, Dr. Cosby. Followed by home health, now with increased purulent drainage and sent for further evaluation and treatment. s/p vanc, cefepime, clindamycin in ED. Poorly compliant with clindamycin, levaquin outpatient. XR R foot in ED with soft tissue swelling, no obvious signs of osteomyelitis. NM bone scan 03/2020 neg for osteomyelitis of R foot, did reveal improving osteomyelitis of L foot. Wound cx collected in ED. - f/u wound cx & sensitivity, de-escalate abx pending results - last wound cx 04/28 with E. coli, enterococcus faecaelis, few serratia, anaerobes - will treat with vanc, levaquin, flagyl for coverage of above - podiatry consulted from ER T2DM, poorly controlled with hyperglycemia BG elevated at 534 on admission, improved to 307 after 2L NS bolus in ED. No neuro symptoms suggestive of HHS. AGAP wnl, no evidence of DKA. - will increase home lantus dose from 60 to 65 - moderate SSI - adjust insulin as needed daily JUANCHO vs worsening of CKD Cr 2.79, unclear baseline although appears to be around 2.2 over the past 2 months. s/p 2 L NS bolus in ED. CrCl 33. - encourage PO hydration - monitor Cr in AM labs - will not start mIVF tonight as already had 2L NS bolus in ED, hx of HFrEF, and tolerating PO intake well - renal dosing of drugs - decreased gabapentin from 600 BID to 300 BID due to CrCl Bladder pain, r/o UTI Mild tenderness over bladder. - UA r/o UTI Pseudohyponatremia Na 128 on initial labs, 135 when corrected for hyperglycemia. - no need for intervention at this time - monitor on AM labs Microcytic anemia Mild, asymptomatic. Consider iron deficiency anemia vs anemia of kidney disease. - will check iron studies, last performed in 2011 HFrEF without acute exacerbation Last echo 05/2019 with EF 35-40%. s/p defibrillator. - continue home meds - monitor volume status after 2L bolus Chronic problems: HLD: continue rosuvastatin COPD: no wheezing, no home meds Orthostatic hypotension: continue home midodrine CAD: continue home ASA Disposition/LOS: Dispo: inpatient medical for IV abx DVT ppx: heparin GI ppx: not indicated Diet: HH/CC IVF: SL FMR H&P: Upper Level - Plan Date/Time: 05/10/20 420 IKath, have evaluated this patient and agree with findings/plan as outlined by environmental health and safety intern resident. Pertinent changes/additions are listed here. HPI/ROS: 54 yo M with PMH of uncontrolled diabetes, COPD, HTN, HFrEF w/ defib (EF 35-40%) and Rt foot 2nd metatarsal ray amputation revision 05/04 by his senior quality methods specialist Dr. Cosby presents for swelling and discharge from the wound and reports he was told to come in. He was given Levaquin and clindamycin after his surgery. He only took 1 dose of Levaquin and reports it caused epistaxis so he stopped taking it. He also reports he is taking his clindamycin only twice daily instead of three times daily. He reports burning on the top of his foot. Denies fever/chills/chest pain/palpitations. He reports his home blood sugars have been in the 200s. He is taking 60 units of lantus daily and does not take mealtime insulin. Pt reports baseline SOB with exertion he associates with his COPD with no other symptoms. In ED, WBC wnl; pulse 99 and R 20, afebrile. XR Rt foot showed swelling. Dr. Meneses was consulted. He removed stitches and took a wound culture and repacked wound. Blood cultures were collected. Pt was given vanc, cefepime, and clinda. Physical Exam: VS: BP 139/80, P82 (max pulse 99), R20, T98.1, 100% on RA. Exam: Lungs BCTA, cardiac RRR no murmurs. RLE: 2+ pitting edema, s/p 2nd toe amputation. Unable to palpate dorsalis pedis or posterior tibial pulse. Extremity was warm. Erythema around incision site with drainage, wound is packed. A/P: Sepsis 2/2 abscess, post-op diabetic foot infection. S/p Rt 2nd toe ray amputation revision 05/04/20. Patient had failure to comply with outpatient antibiotics. Sepsis criteria met with pulse in 90s and R of 20. LA not elevated. S/p 2 L bolus. Blood cultures and wound cultures pending. [facility]. Last wound cultures grew 7 organisms: E coli, e faecalis, S marcescens, and 4 other anaerobes. Continue Vanc (MRSA/e faecalis) coverage, start levaquin (pseudomonas, E coli and S marcescens coverage), start flagyl for anaerobic coverage. Consult Dr. Cosby, podiatry, appreciate recs. JUANCHO on CKD4 in setting of HFrEF (EF 35-40%). S/p 2L bolus. Not fluid overloaded on exam. Encourage PO hydration. Renally dose medications. Cr Cl of 33. DM2, uncontrolled. Hyperglycemic to 500s, no anion gap. Start lantus 65 u daily and titrate up while inpatient, consider starting mealtime insulin at home. Moderate sliding scale. DM education. Goal is BS <200 for optimal wound healing. PAD. Arterial Dopplers last visit showed bilateral PAD. Unable to palpate RLE pulse today likely due to pitting edema, extremity is warm. Bedside art dopplers pending. No calf swelling suggestive of DVT. Start heparin for DVT ppx. Mild hyperkalemia noted, will likely resolve with insulin administration but will continue to monitor. Pseudohyponatremia due to hyperglycemia noted. Microcytic Anemia noted, as last anemia work up appears to have been done in 2011, will repeat today. For continuation of home medications for other chronic medical problems, see interns note. Brice Lara MD PGY3 Addendum - Attending - Attending Attestation Date/Time: 05/10/20 0800 I personally evaluated the patient and discussed the management with Dr. Hayden I agree with the History, Examination, Assessment and Plan documented above with any addition or exceptions noted below - 54 y/o M with PMHx T2DM, CAD, HFrEF s/p defibrillator who presents for infection of R foot. He had amputation of R second toe in 03/2020, with recent revision on 05/04. Home health has apparently been following his care, and was recommended to come in to the hospital for further evaluation due to reported purulent drainage from the wound. Denies fever, chills, malaise. Endorses R foot pain extending from his surgical site to his ankle. He was prescribed clindamycin and levaquin in the outpatient setting. Taking clindamycin BID instead of TID as prescribed, discontinued levaquin after 2 doses due to GI upset and a nosebleed that he thought were related to the levaquin. Reports he had nausea, abd pain 2 days ago after taking the levaquin. Denies vomiting, diarrhea, constipation, dysuria. Afebrile VSS. Exam repeated by me and agree with resident's exam. Labs: nWBC=6.7, H/H=11.9/36.6, Vgh=079, Vq=087, K=5.2, BUN/Cr=36/2.79, Hqji=258. A/P: 1) Infected amputation site- prior culture with multiple organisms- will start on Vanc, levaquin and flagyl. Consult wound care in AM. 2) JUANCHO- gently hydration. 3) Uncontrolled type 2 DM- restart home medications and adjust as needed.
[2020-05-10] MEDS ORDERED: Dextrose 5% in Water 1,000 ML IV PRN (18:52)
[2020-05-10] MEDS ORDERED: Dextrose 50% Abboject 50 ML SYRINGE SLOW IVP PRN (18:52)
[2020-05-10] MEDS ORDERED: Ondansetron ODT 4 MG TAB PO PRN (18:58)
[2020-05-10] MEDS ORDERED: Nitroglycerin 0.4 MG TAB (25 Tab Bottle) SL PRN (20:26)
[2020-05-10] MEDS ORDERED: Insulin Glargine 60 UNITS in Pre-Filled Syringe 1 EACH SC SCH (21:00)
[2020-05-10] MEDS ORDERED: Gabapentin 300 MG CAP PO SCH (21:00)
[2020-05-10] MEDS: Acetaminophen 325 MG TAB PO PRN (21:12)
[2020-05-10] MEDS: Heparin 5,000 UNITS/ML VIAL SC SCH (21:13)
[2020-05-10] MEDS: HumaLOG 300 UNITS/3 ML VIAL SC PRN (21:13)
[2020-05-10] MEDS: Rosuvastatin 20 MG TAB PO SCH (21:15)
[2020-05-10] MEDS: Fenofibrate Nanocrystallized 145 MG TAB PO SCH (21:15)
[2020-05-10] MEDS: Midodrine HCl 5 MG TAB PO SCH (21:15)
[2020-05-10 22:03] LABS: Bacteria/HPF None Seen HPF (None Seen); Bilirubin Negative (Negative); Blood, Urine Trace (Negative); Clarity Clear (Clear); Glucose, Urine (Dipstick) Greater than 1000 mg/dL (Negative); Ketone, Urine Negative (Negative); Leukocyte Negative Leu/uL (Negative); Nitrite Negative (Negative); Protein, Urine (Dipstick) 30 mg/dL (Neg-Trace); RBC/HPF 0-3 HPF (0-3); Specific Gravity, Urine 1.009 (1.002-1.036); Squamous Epithelial None Seen HPF (0-3); Urobilinogen Normal mg/dL (Less than 2); WBC/HPF None Seen HPF (0-3); pH, Urine 6.5 (5.0-9.0)
[2020-05-10 22:06] LABS: Urine Culture Reflex No No
[2020-05-10 23:04] LABS: Iron Binding Capacity, Total 253 mcg/dL (261-462); Transferrin, Serum 202 mg/dL (174-364)
[2020-05-10 23:05] LABS: Iron 23 ug/dL (65-175)
--- NOTE | 2020-05-11 01:03 | CON ---
DATE OF CONSULTATION: Samuel Durham was seen in the emergency room. He is a patient of Deepika Cosby, although I have seen him in the past. On May 04, 2020, Dr. Deepika Cosby performed amputation of the right second toe and metatarsal wound was closed. The patient presents to the emergency room of his home health caregiver. I was called by the emergency room physician had recently operated on him. This operation was performed at [facility]. Inspection of his wound on right foot reveals that the sutures are intact, but the skin is and there is purulent discharge. Sutures removed, purulent discharge cultured. Gauze dressing applied. At this point, would recommend that Dr. Deepika Cosby be contacted. Would advise Wound Care be involved and outpatient wound VAC care to be instituted. I will see the patient as needed this hospitalization. He need to follow up with Deepika Cosby. Job ID: [id number]
[2020-05-11] MEDS: HumaLOG 300 UNITS/3 ML VIAL SC PRN ×3 (05:23→16:42)
[2020-05-11] MEDS: metroNIDAZOLE 500 MG in Premix Bag 1 BAG IVPB SCH ×3 (05:29→21:50)
[2020-05-11 05:52] LABS: #Eosinphils 0.2 thou/uL (0.0-0.7); #Lymphocytes 2.1 thou/uL (1.20-3.40); #Monocytes 0.5 thou/uL (0.11-0.59); #Neutrophils 4.7 thou/uL (1.40-6.50); %Basophils 0.7 % (0.0-1.0); %Eosinophils 2.9 % (0.0-10.0); %Lymphocytes 28.3 % (21.0-51.0); %Monocytes 6.3 % (0.0-10.0); %Neutrophils 61.9 % (42.0-75.0); Mean Corpuscular HGB CONC 32.8 g/dL (32.0-36.0); Mean Corpuscular Hemoglobin 25.6 pg (27.0-31.0); Mean Corpuscular Volume 78.1 fL (78.0-98.0); Mean Platelet Volume 7.4 fL (7.4-10.4); Platelet Count 415 thou/uL (130-400); RBC Distribution Width 13.6 % (11.5-14.5); White Blood Cell (WBC) Count 7.6 thou/uL (4.8-10.8)
--- NOTE | 2020-05-11 06:09 | PDOC.FM ---
- Subjective Subjective: Patient reports that he is doing well this morning. He denies CP, SOB, abdominal pain, pain in his foot. He reports that he does not have any questions or concerns at this time. - Objective MAR Reviewed: Yes Vital Signs & Weight: Vital Signs (12 hours) Temp Pulse Resp BP Pulse Ox 05/10/20 19:20 97.9 F 90 18 130/70 100 Weight Weight 77.292 kg I&O: 05/09/20 05/10/20 05/11/20 06:59 06:59 06:59 Intake Total 450 Output Total 2039 Balance -1590 Result Diagrams: 05/11/20 05:21 05/11/20 05:21 Phys Exam - Physical Examination Constitutional: NAD HEENT: moist MMs Neck: supple, full ROM Respiratory: no wheezing, no rales, no rhonchi, clear to auscultation bilateral Cardiovascular: RRR Gastrointestinal: soft, non-tender Musculoskeletal: no edema Neurological: non-focal, moves all 4 limbs Psychiatric: A&O x 3 Dx/Plan - Plan Plan: Diabetic Foot Infection s/p toe amputation - R 2nd toe amputation in 03/2020 with recent revision on 05/04/2020 by podiatry, Dr. Cosby. Followed by [facility], now with increased purulent drainage and sent for further evaluation and treatment. s/p vanc, cefepime, clindamycin in ED. Poorly compliant with clindamycin, levaquin outpatient. - XR R foot in ED with soft tissue swelling, no obvious signs of osteomyelitis. NM bone scan 03/2020 neg for osteomyelitis of R foot, did reveal improving osteomyelitis of L foot. - Wound cx: gram - rods, gram + cocci chains, gram + cocci in pairs and clusters, gram + rods - last wound cx 04/28 with E. coli, enterococcus faecaelis, few serratia, anaerobes - will treat with vanc, levaquin, flagyl for coverage of above previous culture - podiatry consulted from ER, will call today - will obtain ESR and CRP due to investigate possible osteo - PT/OT and postacute screening added as patient will likely need placement for continued IV antibiotics T2DM, poorly controlled with hyperglycemia - BG elevated at 534 > 307 > 150 - increased home lantus dose from 60 to 65, consider increasing again tomorrow base on repeat BMP and amount of SSI used throughout the day today - moderate SSI JUANCHO on CKD, improved - Cr 2.79 > 2.10; baseline appears to be around 2-2.2 - s/p 2 L NS bolus in ED. - encourage PO hydration - will not start mIVF tonight as already had 2L NS bolus in ED, hx of HFrEF, and tolerating PO intake well - renal dosing of drugs - decreased gabapentin from 600 BID to 300 BID due to CrCl Bladder pain, r/o UTI - Mild tenderness over bladder. - UA not concerning for UTI - no LE, no WBC, no bacteria, no nitrites Pseudohyponatremia, improved - glucose is improving, as is sodium - 135 on labs but 136 corrected for glucose - monitor on AM labs Microcytic anemia - hgb: 10 - iron: 23, TIBC: 253, Transferrin: 202, Ferritin: 348, % sat: 9% - mixed picture; likely 2/2 to acute phase reaction vs. anemia of chronic disease vs. iron deficiency - will add iron and vit C HFrEF without acute exacerbation - Last echo 05/2019 with EF 35-40%. s/p defibrillator. - continue home meds - monitor volume status after 2L bolus Chronic problems: HLD: continue rosuvastatin COPD: no wheezing, no home meds Orthostatic hypotension: continue home midodrine CAD: continue home ASA Dispo: pending further medical management and IV antibiotics Addendum - Attending - Attending Attestation Date/Time: 05/11/20 7229 I personally evaluated the patient and discussed the management with Dr. Johnson. I agree with the History, Examination, Assessment and Plan documented above with any addition or exceptions noted below. Wound care and podietry recs today. Will need placement as he has now been admitted 3 times following surgery for noncompliance with wound care and abx.
[2020-05-11 06:11] LABS: Anion Gap 12 mmol/L (10-20); BUN (Urea Nitrogen) 28 mg/dL (8.4-25.7); Calc. Creatinine Clearance 43 mL/min (70-130); Calcium 8.7 mg/dL (7.8-10.44); Carbon Dioxide 22 mmol/L (22-29); Chloride 106 mmol/L (98-107); Estimated GFR-MDRD 33; Glucose 150 mg/dL (70-105); Potassium 4.5 mmol/L (3.5-5.1); Sodium 135 mmol/L (136-145)
[2020-05-11] MEDS: Icosapent Ethyl 1 GM CAPSULE PO SCH ×2 (08:26→16:41)
[2020-05-11] MEDS: Aspirin 81 mg Enteric Coated Tablet PO SCH (08:26)
[2020-05-11] MEDS: Gabapentin 300 MG CAP PO SCH ×2 (08:26→21:49)
[2020-05-11] MEDS: Midodrine HCl 5 MG TAB PO SCH ×3 (08:26→21:49)
[2020-05-11] MEDS: Carvedilol 3.125 MG TAB PO SCH (08:27)
[2020-05-11] MEDS: Heparin 5,000 UNITS/ML VIAL SC SCH ×3 (08:27→21:50)
[2020-05-11] MEDS: Insulin Glargine 65 UNITS in Pre-Filled Syringe 1 EACH SC SCH (08:27)
[2020-05-11] MEDS ORDERED: Non-Formulary Item 1 EACH (Insulin Detemir [Levemir Flextouch] 100 UNIT/ML Insuln.Pen) SC SCH (09:00)
[2020-05-11] MEDS ORDERED: Enoxaparin Sodium 30 MG/0.3 ML SYRINGE SC SCH (09:00)
[2020-05-11] MEDS ORDERED: Insulin Glargine 60 UNITS in Pre-Filled Syringe 1 EACH SC SCH (09:00)
[2020-05-11] MEDS ORDERED: metroNIDAZOLE 500 MG TAB PO SCH (09:00)
[2020-05-11] MEDS ORDERED: Ferrous Sulfate 325 MG TAB PO SCH (09:15)
[2020-05-11] MEDS ORDERED: Ascorbic Acid 500 mg Chewable Tablet PO SCH (09:15)
[2020-05-11] MEDS ORDERED: Morphine 4 MG/ML VIAL SLOW IVP SCH (10:30)
[2020-05-11] MEDS ORDERED: Vancomycin 1 GM in Premix Bag 1 BAG IVPB SCH (18:00)
[2020-05-11] MEDS: Acetaminophen 325 MG TAB PO PRN (18:40)
[2020-05-11] MEDS: Rosuvastatin 20 MG TAB PO SCH (21:48)
[2020-05-11] MEDS: Fenofibrate Nanocrystallized 145 MG TAB PO SCH (21:49)
[2020-05-11] MEDS ORDERED: Vancomycin HCl 1.25 GM in Sodium Chloride 0.9% 250 ML 250 ML IVPB SCH (23:59)
--- NOTE | 2020-05-12 05:58 | PDOC.FM ---
- Subjective Subjective: Patient is doing well this morning. No acute events overnight. Denies CP, SOB, abdominal pain. Tolerating PO intake and having BMs. Wound vac stopped working this morning. Nursing removed wound vac and applied wet to dry dressing. They also notified wound care who will be by later today. - Objective MAR Reviewed: Yes Vital Signs & Weight: Vital Signs (12 hours) Temp Pulse Resp BP Pulse Ox 05/11/20 20:00 98 05/11/20 19:25 97.5 F L 79 18 107/70 98 Weight Admit Weight 77.882 kg Weight 77.31 kg I&O: 05/10/20 05/11/20 05/12/20 06:59 06:59 06:59 Intake Total 450 1140 Output Total 2040 850 Balance -1590 290 Result Diagrams: 05/12/20 06:37 05/12/20 06:37 Phys Exam - Physical Examination Constitutional: NAD HEENT: moist MMs Neck: supple, full ROM Respiratory: no wheezing, no rales, no rhonchi, clear to auscultation bilateral Cardiovascular: RRR Gastrointestinal: soft, non-tender, no distention, positive bowel sounds Musculoskeletal: no edema right foot wrapped Neurological: non-focal, moves all 4 limbs Psychiatric: normal affect Skin: no rash Dx/Plan - Plan Plan: Diabetic Foot Infection s/p toe amputation - R 2nd toe amputation in 03/2020 with recent revision on 05/04/2020 by podiatry, Dr. Cosby. Followed by [facility], now with increased purulent drainage and sent for further evaluation and treatment. s/p vanc, cefepime, clindamycin in ED. Poorly compliant with clindamycin, levaquin outpatient. - XR R foot in ED with soft tissue swelling, no obvious signs of osteomyelitis. NM bone scan 03/2020 neg for osteomyelitis of R foot, did reveal improving osteomyelitis of L foot. - Wound cx: gram neg rods - blood cx: NGTD - last wound cx 04/28 with E. coli, enterococcus faecaelis, few serratia, anaerobes - will treat with vanc, levaquin, flagyl for coverage of above previous culture - podiatry consulted: no need for surgery, agreed with IV antibiotics and wound vac - ESR/CRP: 106/3.83; although elevated, down from last admission 111/7.18 - PT/OT and postacute screening, patient could benefit from SNF as IV antibiotics will be needed vs. Home health T2DM, poorly controlled with hyperglycemia - BG elevated at 534 > 307 > 150 > 103 - increased home lantus dose from 60 to 65 on day of admission, received 4 units of SSI over the past 24 hours - moderate SSI JUANCHO on CKD, improved - Cr 2.79 > 2.10 > 2.12; baseline appears to be around 2-2.2 - s/p 2 L NS bolus in ED. - encourage PO hydration - will not start mIVF tonight as already had 2L NS bolus in ED, hx of HFrEF, and tolerating PO intake well - renal dosing of drugs - decreased gabapentin from 600 BID to 300 BID due to CrCl Bladder pain, r/o UTI - Mild tenderness over bladder. - UA not concerning for UTI - no LE, no WBC, no bacteria, no nitrites Pseudohyponatremia, improved - glucose is improving, as is sodium - 135 on labs but 136 corrected for glucose - monitor on AM labs Microcytic anemia - hgb: 10 > 10.6 - iron: 23, TIBC: 253, Transferrin: 202, Ferritin: 348, % sat: 9% - mixed picture; likely 2/2 to acute phase reaction vs. anemia of chronic disease vs. iron deficiency - will add iron and vit C HFrEF without acute exacerbation - Last echo 05/2019 with EF 35-40%. s/p defibrillator. - continue home meds - monitor volume status after 2L bolus Chronic problems: HLD: continue rosuvastatin COPD: no wheezing, no home meds Orthostatic hypotension: continue home midodrine CAD: continue home ASA Dispo: pending further medical management, IV antibiotics, and outpatient care planning Addendum - Attending - Attending Attestation Date/Time: 05/12/20 1310 I personally evaluated the patient and discussed the management with Dr. Gaurang negrete. I agree with the History, Examination, Assessment and Plan documented above with any addition or exceptions noted below. arranging outpatient wound care and placement. Levaquin and amoxicillin for 3 weeks once discharged.
[2020-05-12] MEDS: metroNIDAZOLE 500 MG in Premix Bag 1 BAG IVPB SCH (06:10)
[2020-05-12 07:15] LABS: #Basophils 0.1 thou/uL (0.0-0.2); #Eosinphils 0.3 thou/uL (0.0-0.7); #Lymphocytes 2.2 thou/uL (1.20-3.40); #Monocytes 0.4 thou/uL (0.11-0.59); #Neutrophils 4.3 thou/uL (1.40-6.50); %Eosinophils 3.4 % (0.0-10.0); %Lymphocytes 30.5 % (21.0-51.0); %Monocytes 5.7 % (0.0-10.0); %Neutrophils 59.3 % (42.0-75.0); Hemoglobin 10.6 g/dL (14.0-18.0); Mean Corpuscular HGB CONC 33.3 g/dL (32.0-36.0); Mean Platelet Volume 7.9 fL (7.4-10.4); Platelet Count 436 thou/uL (130-400); RBC Distribution Width 13.7 % (11.5-14.5); Red Blood Cell (RBC) Count 4.08 mill/uL (4.70-6.10); White Blood Cell (WBC) Count 7.3 thou/uL (4.8-10.8)
[2020-05-12 07:27] LABS: Anion Gap 16 mmol/L (10-20); BUN (Urea Nitrogen) 25 mg/dL (8.4-25.7); Calc. Creatinine Clearance 43 mL/min (70-130); Calcium 9.4 mg/dL (7.8-10.44); Carbon Dioxide 19 mmol/L (22-29); Chloride 106 mmol/L (98-107); Estimated GFR-MDRD 32; Glucose 103 mg/dL (70-105); Potassium 4.8 mmol/L (3.5-5.1); Sodium 136 mmol/L (136-145)
[2020-05-12] MEDS: Insulin Glargine 65 UNITS in Pre-Filled Syringe 1 EACH SC SCH (09:03)
[2020-05-12] MEDS: Midodrine HCl 5 MG TAB PO SCH ×3 (09:04→21:37)
[2020-05-12] MEDS: Icosapent Ethyl 1 GM CAPSULE PO SCH ×2 (09:04→15:30)
[2020-05-12] MEDS: Heparin 5,000 UNITS/ML VIAL SC SCH ×3 (09:04→21:37)
[2020-05-12] MEDS: Gabapentin 300 MG CAP PO SCH ×2 (09:05→21:36)
[2020-05-12] MEDS: Aspirin 81 mg Enteric Coated Tablet PO SCH (09:05)
[2020-05-12] MEDS: Ferrous Sulfate 325 MG TAB PO SCH (09:05)
[2020-05-12] MEDS: Carvedilol 3.125 MG TAB PO SCH (09:05)
[2020-05-12] MEDS: Ascorbic Acid 500 mg Chewable Tablet PO SCH (09:05)
[2020-05-12] MEDS: HumaLOG 300 UNITS/3 ML VIAL SC PRN ×2 (12:17→16:20)
[2020-05-12] MEDS: Rosuvastatin 20 MG TAB PO SCH (21:36)
[2020-05-12] MEDS: AMOXicillin 250 MG CAP PO SCH (21:36)
[2020-05-12] MEDS: Fenofibrate Nanocrystallized 145 MG TAB PO SCH (21:36)
[2020-05-12] MEDS: Acetaminophen 325 MG TAB PO PRN (21:37)
--- NOTE | 2020-05-13 06:25 | PDOC.FM ---
- Subjective Subjective: Patient is doing well this morning. No acute events overnight. Denies CP, abdominal pain, leg pain. Reports that he is tolerating PO and ambulating frequently. - Objective MAR Reviewed: Yes Vital Signs & Weight: Vital Signs (12 hours) Temp Pulse Resp BP Pulse Ox 05/12/20 20:00 97 05/12/20 19:59 98.4 F 83 18 109/72 97 Weight Admit Weight 77.882 kg Weight 77.3 kg I&O: 05/11/20 05/12/20 05/13/20 06:59 06:59 06:59 Intake Total 450 1140 Output Total 2040 850 780 Balance -1590 290 -780 Result Diagrams: 05/12/20 06:37 05/12/20 06:37 Phys Exam - Physical Examination Constitutional: NAD HEENT: moist MMs Neck: supple, full ROM Respiratory: no wheezing, no rales, no rhonchi, clear to auscultation bilateral Cardiovascular: RRR, no significant murmur Gastrointestinal: soft, non-tender, positive bowel sounds Musculoskeletal: no edema wound vac in place on right foot Neurological: moves all 4 limbs Psychiatric: normal affect, A&O x 3 Skin: no rash Dx/Plan - Plan Plan: Diabetic Foot Infection s/p toe amputation - R 2nd toe amputation in 03/2020 with recent revision on 05/04/2020 by podiatry, Dr. Cosby. Followed by [facility], now with increased purulent drainage and sent for further evaluation and treatment. s/p vanc, cefepime, clindamycin in ED. Poorly compliant with clindamycin, levaquin outpatient. - XR R foot in ED with soft tissue swelling, no obvious signs of osteomyelitis. NM bone scan 03/2020 neg for osteomyelitis of R foot, did reveal improving osteomyelitis of L foot. - Wound cx: E. coli and enterococcus faecalis - blood cx: NGTD - last wound cx 04/28 with E. coli, enterococcus faecaelis, few serratia, anaerobes - s/p vanc, levaquin, flagyl --> changed to PO antibiotics levoquin and amoxil x3 weeks - podiatry consulted: no need for surgery, agreed with IV antibiotics and wound vac - ESR/CRP: 106/3.83; although elevated, down from last admission 111/7.18 - PT/OT and postacute screening, patient could benefit from SNF for medication management as her has been hospitalized multiple times for medication noncompliance and for wound vac care T2DM, poorly controlled with hyperglycemia - BG elevated at 534 > 307 > 150 > 103 - will continue 65 units of lantus as sugars are well controlled - moderate SSI JUANCHO on CKD, resolved - Cr 2.79 > 2.10 > 2.12; baseline appears to be around 2-2.2 - no new labs today - s/p 2 L NS bolus in ED. - encourage PO hydration - will not start mIVF tonight as already had 2L NS bolus in ED, hx of HFrEF, and tolerating PO intake well - renal dosing of drugs - decreased gabapentin from 600 BID to 300 BID due to CrCl Bladder pain, r/o UTI - Mild tenderness over bladder. - UA not concerning for UTI - no LE, no WBC, no bacteria, no nitrites Pseudohyponatremia, resolved - glucose is improving, as is sodium - 135 on labs but 136 corrected for glucose - monitor on AM labs Microcytic anemia - hgb: 10 > 10.6 - iron: 23, TIBC: 253, Transferrin: 202, Ferritin: 348, % sat: 9% - mixed picture; likely 2/2 to acute phase reaction vs. anemia of chronic disease vs. iron deficiency - will add iron and vit C HFrEF without acute exacerbation - Last echo 05/2019 with EF 35-40%. s/p defibrillator. - continue home meds - monitor volume status after 2L bolus Chronic problems: HLD: continue rosuvastatin COPD: no wheezing, no home meds Orthostatic hypotension: continue home midodrine CAD: continue home ASA Dispo: medically stable for DC, pending placement Addendum - Attending - Attending Attestation Date/Time: 05/13/20 1930 I personally evaluated the patient and discussed the management with Dr. Johnson. I agree with the History, Examination, Assessment and Plan documented above with any addition or exceptions noted below. Patient awaiting group home acceptance. Continue antibiotics and wound care.
[2020-05-13] MEDS: Icosapent Ethyl 1 GM CAPSULE PO SCH ×2 (08:12→16:25)
[2020-05-13] MEDS: Insulin Glargine 65 UNITS in Pre-Filled Syringe 1 EACH SC SCH (08:12)
[2020-05-13] MEDS: Ascorbic Acid 500 mg Chewable Tablet PO SCH (08:12)
[2020-05-13] MEDS: AMOXicillin 250 MG CAP PO SCH ×2 (08:13→21:14)
[2020-05-13] MEDS: Ferrous Sulfate 325 MG TAB PO SCH (08:13)
[2020-05-13] MEDS: Aspirin 81 mg Enteric Coated Tablet PO SCH (08:13)
[2020-05-13] MEDS: Midodrine HCl 5 MG TAB PO SCH ×3 (08:13→21:07)
[2020-05-13] MEDS: Heparin 5,000 UNITS/ML VIAL SC SCH ×3 (08:14→21:08)
[2020-05-13] MEDS: Gabapentin 300 MG CAP PO SCH ×2 (08:14→21:07)
[2020-05-13] MEDS: Carvedilol 3.125 MG TAB PO SCH (08:14)
[2020-05-13] MEDS: HumaLOG 300 UNITS/3 ML VIAL SC PRN (11:55)
[2020-05-13 16:16] LABS: Bilirubin Negative (Negative); Blood, Urine Negative (Negative); Clarity Clear (Clear); Glucose, Urine (Dipstick) 30 mg/dL (Negative); Ketone, Urine Negative (Negative); Leukocyte 250 Leu/uL (Negative); Nitrite Negative (Negative); Protein, Urine (Dipstick) 70 mg/dL (Neg-Trace); RBC/HPF 0-3 HPF (0-3); Specific Gravity, Urine 1.009 (1.002-1.036); Squamous Epithelial None Seen HPF (0-3); Urobilinogen Normal mg/dL (Less than 2); WBC/HPF 21-50 HPF (0-3)
[2020-05-13 16:24] LABS: Bacteria/HPF 1+ HPF (None Seen); Yeast-Budding 2+ HPF (None Seen)
[2020-05-13 16:25] LABS: Urine Culture Reflex Yes Yes
[2020-05-13] MEDS: Fenofibrate Nanocrystallized 145 MG TAB PO SCH (21:07)
[2020-05-13] MEDS: Rosuvastatin 20 MG TAB PO SCH (21:07)
[2020-05-13] MEDS: Acetaminophen 325 MG TAB PO PRN (21:14)
--- NOTE | 2020-05-14 05:36 | PDOC.FM ---
- Subjective Subjective: Patient was sleeping comfortably in bed. Reports some stomach upset and dizziness with antibiotics. Reports that the symptoms resolved with food and orange juice. Patient experienced burning with urination yesterday and UA with reflex culture was obtained that revealed UTI. - Objective MAR Reviewed: Yes Vital Signs & Weight: Vital Signs (12 hours) Temp Pulse Resp BP Pulse Ox 05/13/20 20:00 98.4 F 74 18 108/74 97 Weight Admit Weight 77.882 kg Weight 77.3 kg I&O: 05/12/20 05/13/20 05/14/20 06:59 06:59 06:59 Intake Total 1140 Output Total 850 780 300 Balance 290 -780 -300 Result Diagrams: 05/14/20 07:10 05/14/20 07:10 Phys Exam - Physical Examination Constitutional: NAD HEENT: moist MMs Neck: supple, full ROM Respiratory: no wheezing, clear to auscultation bilateral Cardiovascular: RRR, no significant murmur Gastrointestinal: soft, positive bowel sounds Musculoskeletal: no edema Psychiatric: normal affect, A&O x 3 Skin: no rash Dx/Plan - Plan Plan: Diabetic Foot Infection s/p toe amputation - R 2nd toe amputation in 03/2020 with recent revision on 05/04/2020 by podiatry, Dr. Cosby. Followed by home health, now with increased purulent drainage and sent for further evaluation and treatment. s/p vanc, cefepime, clindamycin in ED. Poorly compliant with clindamycin, levaquin outpatient. - XR R foot in ED with soft tissue swelling, no obvious signs of osteomyelitis. NM bone scan 03/2020 neg for osteomyelitis of R foot, did reveal improving osteomyelitis of L foot. - Wound cx: E. coli and enterococcus faecalis - blood cx: NGTD - last wound cx 04/28 with E. coli, enterococcus faecaelis, few serratia, anaerobes - s/p vanc, levaquin, flagyl --> changed to PO antibiotics levoquin and amoxil x3 weeks - podiatry consulted: no need for surgery, agreed with antibiotics and wound vac - ESR/CRP: 106/3.83; although elevated, down from last admission 111/7.18 - PT/OT and postacute screening, patient could benefit from SNF for medication management as her has been hospitalized multiple times for medication noncompliance and for wound vac care UTI - UA: 250 of LE, 1+ bacteria, 2+ yeast on 05/13 - awaiting culture results - current antibiotics should cover bacteria - will add fluconazole to treat yeast, EKG revealed QTc of 438 - cannot give Azo for pain relief due to GFR of 32, encouraged hydration T2DM, poorly controlled with hyperglycemia - BG elevated at 534 > 307 > 150 > 103, labs pending today, based on bedside glucose well controlled - will continue 65 units of lantus as sugars are well controlled - moderate SSI JUANCHO on CKD, resolved - Cr 2.79 > 2.10 > 2.12; baseline appears to be around 2-2.2 - no new labs today - s/p 2 L NS bolus in ED. - encourage PO hydration - will not start mIVF tonight as already had 2L NS bolus in ED, hx of HFrEF, and tolerating PO intake well - renal dosing of drugs - decreased gabapentin from 600 BID to 300 BID due to CrCl Pseudohyponatremia, resolved - glucose is improving, as is sodium - 135 on labs but 136 corrected for glucose - monitor on AM labs Microcytic anemia - hgb: 10 > 10.6, labs pending today - iron: 23, TIBC: 253, Transferrin: 202, Ferritin: 348, % sat: 9% - mixed picture; likely 2/2 to acute phase reaction vs. anemia of chronic disease vs. iron deficiency - will add iron and vit C HFrEF without acute exacerbation - Last echo 05/2019 with EF 35-40%. s/p defibrillator. - continue home meds - monitor volume status after 2L bolus Chronic problems: HLD: continue rosuvastatin COPD: no wheezing, no home meds Orthostatic hypotension: continue home midodrine CAD: continue home ASA Dispo: medically stable for DC, pending placement Addendum - Attending - Attending Attestation Date/Time: 05/14/20 1350 I personally evaluated the patient and discussed the management with Dr. Johnson. I agree with the History, Examination, Assessment and Plan documented above with any addition or exceptions noted below. The patient will continue antibiotics. Adding antifungal for the yeast in his urine. Creatinine increased, will trend. Waiting on NH placement.
[2020-05-14 06:30] VITALS: BMI 25.7
[2020-05-14 07:35] LABS: #Basophils 0.1 thou/uL (0.0-0.2); #Eosinphils 0.2 thou/uL (0.0-0.7); #Lymphocytes 2.2 thou/uL (1.20-3.40); #Monocytes 0.3 thou/uL (0.11-0.59); #Neutrophils 5.3 thou/uL (1.40-6.50); %Basophils 0.6 % (0.0-1.0); %Eosinophils 2.2 % (0.0-10.0); %Lymphocytes 27.5 % (21.0-51.0); %Monocytes 3.7 % (0.0-10.0); Hemoglobin 10.8 g/dL (14.0-18.0); Mean Corpuscular HGB CONC 33.1 g/dL (32.0-36.0); Mean Corpuscular Hemoglobin 25.3 pg (27.0-31.0); Mean Corpuscular Volume 76.5 fL (78.0-98.0); Mean Platelet Volume 8.8 fL (7.4-10.4); Platelet Count 518 thou/uL (130-400); RBC Distribution Width 14.1 % (11.5-14.5); Red Blood Cell (RBC) Count 4.28 mill/uL (4.70-6.10); White Blood Cell (WBC) Count 8.1 thou/uL (4.8-10.8)
[2020-05-14 07:59] LABS: Anion Gap 16 mmol/L (10-20); BUN (Urea Nitrogen) 28 mg/dL (8.4-25.7); Calc. Creatinine Clearance 33 mL/min (70-130); Calcium 9.4 mg/dL (7.8-10.44); Carbon Dioxide 20 mmol/L (22-29); Chloride 105 mmol/L (98-107); Estimated GFR-MDRD 25; Glucose 153 mg/dL (70-105); Potassium 4.5 mmol/L (3.5-5.1); Sodium 136 mmol/L (136-145)
[2020-05-14] MEDS: Ferrous Sulfate 325 MG TAB PO SCH (09:15)
[2020-05-14] MEDS: Icosapent Ethyl 1 GM CAPSULE PO SCH ×2 (09:15→17:30)
[2020-05-14] MEDS: Fluconazole 100 MG TAB PO SCH (09:15)
[2020-05-14] MEDS: Aspirin 81 mg Enteric Coated Tablet PO SCH (09:15)
[2020-05-14] MEDS: AMOXicillin 250 MG CAP PO SCH ×2 (09:15→21:09)
[2020-05-14] MEDS: Ascorbic Acid 500 mg Chewable Tablet PO SCH (09:16)
[2020-05-14] MEDS: Gabapentin 300 MG CAP PO SCH ×2 (09:16→21:09)
[2020-05-14] MEDS: Midodrine HCl 5 MG TAB PO SCH ×3 (09:16→21:09)
[2020-05-14] MEDS: Heparin 5,000 UNITS/ML VIAL SC SCH ×3 (09:17→21:10)
[2020-05-14] MEDS: Insulin Glargine 65 UNITS in Pre-Filled Syringe 1 EACH SC SCH (09:18)
[2020-05-14] MEDS: Carvedilol 3.125 MG TAB PO SCH (09:18)
[2020-05-14] MEDS: Acetaminophen 325 MG TAB PO PRN ×2 (15:17→21:10)
[2020-05-14] MEDS: Rosuvastatin 20 MG TAB PO SCH (21:09)
[2020-05-14] MEDS: Fenofibrate Nanocrystallized 145 MG TAB PO SCH (21:10)
--- NOTE | 2020-05-15 06:26 | PDOC.FM ---
- Subjective Subjective: Patient resting comfortably in bed. Denies CP, abdominal pain, foot pain. Reports tolerating PO intake. Patient reports that he is taking his antibiotics with food and is tolerating the medication much better. Patient would really like to discharge home today as he reports that his mother is having to move out and no one is available to move his belongings. - Objective MAR Reviewed: Yes Vital Signs & Weight: Vital Signs (12 hours) Temp Pulse Resp BP Pulse Ox 05/14/20 20:00 97.8 F 83 18 116/73 98 Weight Admit Weight 77.882 kg Weight 77 kg I&O: 05/13/20 05/14/20 05/15/20 06:59 06:59 06:59 Output Total 780 300 250 Balance -780 -300 -250 Result Diagrams: 05/14/20 07:10 05/14/20 07:10 Phys Exam - Physical Examination Constitutional: NAD HEENT: moist MMs Neck: supple, full ROM Respiratory: no wheezing, clear to auscultation bilateral Cardiovascular: RRR, no significant murmur Gastrointestinal: soft, non-tender, positive bowel sounds Musculoskeletal: no edema Neurological: moves all 4 limbs Psychiatric: normal affect Skin: no rash Dx/Plan - Plan Plan: Diabetic Foot Infection s/p toe amputation - R 2nd toe amputation in 03/2020 with recent revision on 05/04/2020 by podiatry, Dr. Cosby. Followed by [facility], now with increased purulent drainage and sent for further evaluation and treatment. s/p vanc, cefepime, clindamycin in ED. Poorly compliant with clindamycin, levaquin outpatient. - XR R foot in ED with soft tissue swelling, no obvious signs of osteomyelitis. NM bone scan 03/2020 neg for osteomyelitis of R foot, did reveal improving osteomyelitis of L foot. - Wound cx: E. coli and enterococcus faecalis - blood cx: NGTD - last wound cx 04/28 with E. coli, enterococcus faecaelis, few serratia, anaerobes - s/p vanc, levaquin, flagyl --> changed to PO antibiotics levoquin and amoxil x3 weeks - podiatry consulted: no need for surgery, agreed with antibiotics and wound vac - ESR/CRP: 106/3.83; although elevated, down from last admission 111/7.18 - PT/OT and postacute screening, patient could benefit from SNF for medication management as her has been hospitalized multiple times for medication noncompliance and for wound vac care; today the patient reports that he needs to return home to take care of his belongings as his mother is having to move out UTI - UA: 250 of LE, 1+ bacteria, 2+ yeast on 05/13 - urine cx: NGTD - current antibiotics should cover bacteria - fluconazole to treat yeast (x2 weeks), EKG revealed QTc of 438 - cannot give Azo for pain relief due to GFR of 32, encouraged hydration T2DM, poorly controlled with hyperglycemia - BG elevated at 534 > 307 > 150 > 103, labs pending today, based on bedside glucose well controlled - will continue 65 units of lantus as sugars are well controlled - moderate SSI JUANCHO on CKD, resolved - Cr 2.79 > 2.10 > 2.12; baseline appears to be around 2-2.2 - no new labs today - s/p 2 L NS bolus in ED. - encourage PO hydration - will not start mIVF tonight as already had 2L NS bolus in ED, hx of HFrEF, and tolerating PO intake well - renal dosing of drugs - decreased gabapentin from 600 BID to 300 BID due to CrCl Pseudohyponatremia, resolved - glucose is improving, as is sodium - 135 on labs but 136 corrected for glucose - monitor on AM labs Microcytic anemia - hgb: 10 > 10.6, labs pending today - iron: 23, TIBC: 253, Transferrin: 202, Ferritin: 348, % sat: 9% - mixed picture; likely 2/2 to acute phase reaction vs. anemia of chronic disease vs. iron deficiency - will add iron and vit C HFrEF without acute exacerbation - Last echo 05/2019 with EF 35-40%. s/p defibrillator. - continue home meds - monitor volume status after 2L bolus Chronic problems: HLD: continue rosuvastatin COPD: no wheezing, no home meds Orthostatic hypotension: continue home midodrine CAD: continue home ASA Dispo: medically stable for DC, pending placement, possibly DC home today due to social issue Addendum - Attending - Attending Attestation Date/Time: 05/15/201939 I personally evaluated the patient and discussed the management with Dr. Johnson. I agree with the History, Examination, Assessment and Plan documented above with any addition or exceptions noted below. Patient is stable. The patient continues on antibiotics. Attempting placement but will discuss with case mgmt the patient's living situation to see if outpt wound vac could be set up.
[2020-05-15] MEDS: Fluconazole 100 MG TAB PO SCH ×2 (08:03→08:07)
[2020-05-15] MEDS: Aspirin 81 mg Enteric Coated Tablet PO SCH (08:04)
[2020-05-15] MEDS: Ferrous Sulfate 325 MG TAB PO SCH (08:04)
[2020-05-15] MEDS: Carvedilol 3.125 MG TAB PO SCH (08:04)
[2020-05-15] MEDS: Ascorbic Acid 500 mg Chewable Tablet PO SCH (08:05)
[2020-05-15] MEDS: Midodrine HCl 5 MG TAB PO SCH ×3 (08:05→19:57)
[2020-05-15] MEDS: Gabapentin 300 MG CAP PO SCH ×2 (08:06→19:56)
[2020-05-15] MEDS: Heparin 5,000 UNITS/ML VIAL SC SCH ×3 (08:08→19:57)
[2020-05-15] MEDS: AMOXicillin 250 MG CAP PO SCH ×2 (09:44→19:55)
[2020-05-15] MEDS: Insulin Glargine 65 UNITS in Pre-Filled Syringe 1 EACH SC SCH (09:44)
[2020-05-15] MEDS: Icosapent Ethyl 1 GM CAPSULE PO SCH ×2 (09:44→17:31)
[2020-05-15] MEDS: HumaLOG 300 UNITS/3 ML VIAL SC PRN ×2 (12:28→17:32)
--- NOTE | 2020-05-15 14:20 | PQF ---
CLINICAL DOCUMENTATION CLARIFICATION FORM: Dear Dr. Falguni Johnson / Dr. Zayra Uribe Date: 05.15.20 Please exercise your independent, professional judgment in responding to the clarification form. Clinical indicators are provided on the bottom of this form for your review. Please check appropriate box(es) to clarify if the following diagnosis has been ruled in our ruled out: Sepsis 2/2 abscess, Post-op Diabetic foot infection [ ] Ruled in diagnosis [ ] Continue to treat [ ] Resolved [X} Ruled out diagnosis [ ] Improving [ ] Cannot rule out diagnosis [ ] Other diagnosis [ ] Unable to determine For continuity of documentation, please document condition throughout progress notes and discharge summary. Thank You. To be completed by CDI/Coding staff for physician review: CLINICAL INDICATORS - SIGNS / SYMPTOMS / LABS / RESULTS AND LOCATION IN MR 11.18 H&P ([facility]) Dr. Kath Lara pertinent changes/additions are listed: *Sepsis 2/2 abscess, post-op diabetic foot infection *Sepsis criteria met w/ pulse in 90s and R of 20. LA not elevated. RISK FACTORS / RESULTS AND LOCATION IN MR 11.18 H&P ([facility]) Dr. Kath Lara pertinent changes/additions are listed: *s/p right 2nd toe ray amputation revision 05/04/20. *pt failure to comply w/ outpatient antibiotics. *PMH: T2DM, CAD, TREATMENTS / RESULTS AND LOCATION IN MR 11.18 H&P ([facility]) Dr. Kath Lara pertinent changes/additions are listed: * s/p 2L bolus; bld cultures; wound cultures; *IV ABX continue Vanc (MRSA/e faecailis) coverage, started Levaquin (Pseudomonas, E. coli and S maroescens coverage), start flagyl for anaerobic coverage. *Consult Dr. Cosby, podiatry CDS Signature: Ibeth Garces, RN, CCDS Phone #: [phone] [email or web address] This is a permanent part of the Medical Record [facility]
[2020-05-15] MEDS: Acetaminophen 325 MG TAB PO PRN (15:37)
[2020-05-15] MEDS: Fenofibrate Nanocrystallized 145 MG TAB PO SCH (19:56)
[2020-05-15] MEDS: Rosuvastatin 20 MG TAB PO SCH (19:57)
--- NOTE | 2020-05-16 08:08 | PDOC.FM ---
- Subjective Subjective: Patient doing well this morning. No questions or concerns. Patient expressed that he does not want to go to SNF and would like to go home [facility]. - Objective MAR Reviewed: Yes Vital Signs & Weight: Vital Signs (12 hours) Temp Pulse Resp BP Pulse Ox 05/16/20 07:51 98.3 F 92 18 86/63 L 97 Weight Admit Weight 77.882 kg Weight 77.1 kg I&O: 05/15/20 05/16/20 05/17/20 06:59 06:59 06:59 Intake Total 1680 Output Total 250 1650 Balance -250 30 Result Diagrams: 05/14/20 07:10 05/14/20 07:10 Phys Exam - Physical Examination Constitutional: NAD HEENT: moist MMs Neck: supple, full ROM Respiratory: no wheezing, no rales, clear to auscultation bilateral Cardiovascular: RRR, no significant murmur Gastrointestinal: soft, non-tender, positive bowel sounds Musculoskeletal: no edema Psychiatric: normal affect Skin: no rash Dx/Plan - Plan Plan: Diabetic Foot Infection s/p toe amputation - R 2nd toe amputation in 03/2020 with recent revision on 05/04/2020 by podiatry, Dr. Cosby. Followed by [facility], now with increased purulent drainage and sent for further evaluation and treatment. s/p vanc, cefepime, clindamycin in ED. Poorly compliant with clindamycin, levaquin outpatient. - XR R foot in ED with soft tissue swelling, no obvious signs of osteomyelitis. NM bone scan 03/2020 neg for osteomyelitis of R foot, did reveal improving osteomyelitis of L foot. - Wound cx: E. coli and enterococcus faecalis - blood cx: NGTD - last wound cx 04/28 with E. coli, enterococcus faecaelis, few serratia, anaerobes - s/p vanc, levaquin, flagyl --> changed to PO antibiotics levoquin and amoxil x3 weeks - podiatry consulted: no need for surgery, agreed with antibiotics and wound vac - ESR/CRP: 106/3.83; although elevated, down from last admission 111/7.18 - PT/OT and postacute screening, patient could benefit from SNF for medication management as her has been hospitalized multiple times for medication noncompliance and for wound vac care; patient is no longer interested in SNF and want to return home [place]; needs outpatient wound care and HH UTI - UA: 250 of LE, 1+ bacteria, 2+ yeast on 05/13 - urine cx: yeast - current antibiotics should cover bacteria - fluconazole to treat yeast (x2 weeks), EKG revealed QTc of 438 - cannot give Azo for pain relief due to GFR of 32, encouraged hydration T2DM, poorly controlled with hyperglycemia - BG elevated at 534 > 307 > 150 > 103; based on bedside glucose, well contro lled - will continue 65 units of lantus as sugars are well controlled - moderate SSI JUANCHO on CKD, resolved - Cr 2.79 > 2.10 > 2.12; baseline appears to be around 2-2.2 - no new labs today - s/p 2 L NS bolus in ED. - encourage PO hydration - will not start mIVF tonight as already had 2L NS bolus in ED, hx of HFrEF, and tolerating PO intake well - renal dosing of drugs - decreased gabapentin from 600 BID to 300 BID due to CrCl Pseudohyponatremia, resolved - glucose is improving, as is sodium - 135 on labs but 136 corrected for glucose - monitor on AM labs Microcytic anemia - hgb: 10 > 10.6 - iron: 23, TIBC: 253, Transferrin: 202, Ferritin: 348, % sat: 9% - mixed picture; likely 2/2 to acute phase reaction vs. anemia of chronic disease vs. iron deficiency - will add iron and vit C HFrEF without acute exacerbation - Last echo 05/2019 with EF 35-40%. s/p defibrillator. - continue home meds - monitor volume status after 2L bolus Chronic problems: HLD: continue rosuvastatin COPD: no wheezing, no home meds Orthostatic hypotension: continue home midodrine CAD: continue home ASA Dispo: will likely DC home today pending outpatient wound care and HH Addendum - Attending - Attending Attestation Date/Time: 05/16/201930 I personally evaluated the patient and discussed the management with Dr. Johnson. I agree with the History, Examination, Assessment and Plan documented above with any addition or exceptions noted below. Patient doesn't want snf placement. Will d/c with home health and wound care. Stressed importance of compliance with antibiotic regimen and wound care.
[2020-05-16] MEDS: Ferrous Sulfate 325 MG TAB PO SCH (08:29)
[2020-05-16] MEDS: Icosapent Ethyl 1 GM CAPSULE PO SCH ×2 (08:29→18:25)
[2020-05-16] MEDS: Aspirin 81 mg Enteric Coated Tablet PO SCH (08:30)
[2020-05-16] MEDS: Ascorbic Acid 500 mg Chewable Tablet PO SCH (08:30)
[2020-05-16] MEDS: Fluconazole 100 MG TAB PO SCH (08:33)
[2020-05-16] MEDS: Midodrine HCl 5 MG TAB PO SCH ×2 (08:37→15:27)
[2020-05-16] MEDS: Carvedilol 3.125 MG TAB PO SCH (08:37)
[2020-05-16] MEDS: Gabapentin 300 MG CAP PO SCH (08:38)
[2020-05-16] MEDS: Heparin 5,000 UNITS/ML VIAL SC SCH ×2 (08:38→15:27)
[2020-05-16] MEDS: Insulin Glargine 65 UNITS in Pre-Filled Syringe 1 EACH SC SCH (08:38)
[2020-05-16] MEDS: AMOXicillin 250 MG CAP PO SCH (08:39)
[2020-05-16] MEDS: HumaLOG 300 UNITS/3 ML VIAL SC PRN ×2 (11:16→16:47)
[2020-05-16 16:55] VITALS: BP 130/94; TEMP 97.9
--- NOTE | 2020-05-17 09:19 | EKG ---
Test Reason : Blood Pressure : / mmHG Vent. Rate : 087 BPM Atrial Rate : 087 BPM P-R Int : 200 ms QRS Dur : 100 ms QT Int : 364 ms P-R-T Axes : 045 -16 -11 degrees QTc Int : 438 ms Normal sinus rhythm Minimal voltage criteria for LVH, may be normal variant Inferior infarct , age undetermined Abnormal ECG Confirmed by CHANDRA ANTHONY MD ([id number]) on 05/17/2020 9:19:47 AM Referred By: CLIFTON Confirmed By:CHANDRA ANTHONY MD
--- NOTE | 2020-05-17 15:05 | DIS ---
DATE OF ADMISSION: 05/10/2020 DATE OF DISCHARGE: 05/16/2020 ADMITTING RESIDENT: Falguni Johnson MD ADMITTING ATTENDING: Rica Isaacs MD DISCHARGE ATTENDING: Zayra Uribe MD CONSULTS: Podiatry, Dr. Deepika Cosby. PROCEDURE AND IMAGES: None. PRIMARY DIAGNOSIS: Diabetic foot infection, status post toe amputation. SECONDARY DIAGNOSES: 1. Type 2 diabetes mellitus, insulin dependent. 2. Urinary tract infection. 3. Acute kidney injury on chronic kidney disease. 4. Pseudohyponatremia. 5. Microcytic anemia. 6. Heart failure with reduced ejection fraction, without acute exacerbation. DISCHARGE MEDICATIONS: 1. Rosuvastatin 20 mg p.o. at bedtime. 2. Fenofibrate 145 mg p.o. at bedtime. 3. Aspirin 81 mg p.o. daily. 4. Carvedilol 3.125 mg p.o. daily. 5. Vascepa 0.5 g p.o. b.i.d. 6. Henley 7.5 mg p.o. q.4 hours p.r.n. 7. Amoxil 500 mg p.o. b.i.d. to be continued for 17 more days. 8. Diflucan 200 mg p.o. daily to be continued for 10 more days. 9. Ferrous sulfate 325 mg p.o. daily. 10. Levaquin 750 mg p.o. daily to be continued for 17 more days. 11. Gabapentin 300 mg p.o. b.i.d. 12. Vitamin C 1000 mg p.o. daily. 13. Levemir FlexTouch 65 units subcutaneous daily. DISCONTINUED MEDICATIONS: 1. Levemir FlexTouch 60 units subcutaneous daily. 2. Gabapentin 600 mg p.o. b.i.d. HISTORY OF PRESENT ILLNESS AND HOSPITAL COURSE: The patient is a 54-year-old male with past medical history of type 2 diabetes, coronary artery disease, heart failure with reduced ejection fraction, status post defibrillator, who presented for infection of his right foot. He had an amputation of his right second toe in March 2020 with recent revision on May 04. Home health has apparently been following his care and recommended the patient come to the hospital for further evaluation due to reported purulent drainage from the wound. He denied fever, chills, or malaise. He endorsed right foot pain extending from the surgical site to his ankle. He was prescribed clindamycin and Levaquin in the outpatient setting. However, he was taking the clindamycin twice a day instead of 3 times a day as prescribed and discontinued the Levaquin after 2 doses due to GI upset and nosebleed that he thought was related to the Levaquin. The patient was admitted and was originally treated with vancomycin, Levaquin, and Flagyl IV for the infection, but was soon changed over to p.o. antibiotics of Levaquin and Amoxil after wound results showed E coli and Enterococcus faecalis. The patient began experiencing dysuria while hospitalized and a UA showed 1+ bacteria and 2+ yeast. Urine culture grew yeast and the patient was treated with fluconazole to be continued for a total of 2 weeks of therapy. His wound culture also grew out yeast that should be covered by the fluconazole as well. The patient should continue his p.o. antibiotics for a total of 3 weeks. While in the hospital, the patient's diabetes was controlled with 65 units of Lantus. His acute kidney injury resolved after 2 L normal saline bolus in the ED. The patient was tolerating p.o. intake while hospitalized and was encouraged to continue p.o. hydration. The patient's CBC showed microcytic anemia, which was likely secondary to a mixed picture of acute phase reaction, anemia of chronic disease, and iron deficiency. He was started on p.o. iron and vitamin C. During the patient's hospitalization, his creel selector, Dr. Cosby, was consulted who agreed with the treatment plan and did not see a need for surgery. While in the hospital, a wound VAC was placed on the patient's foot and wound care was consulted to help care for the patient's wound. The medical team thought that the patient would benefit from fpc facility to help with medication management and wound care. However, the patient denied fpc facility placement and wanted to return home. Case Management arranged outpatient wound care through the patient's home health agency. On day of discharge, the patient was stable. DISPOSITION: Stable. DISCHARGE INSTRUCTIONS: LOCATION: Home. DIET: Diabetic, heart healthy. ACTIVITY: As tolerated. FOLLOWUP: Follow up with primary care provider at [facility] in 7 days. Job ID: [id number]
== END 2020-05-16 17:12 | disposition home health service (06) | DRG 565 ==
LOC: ERS 13:50 → T4-A 17:52
PROVIDERS: ADMIT Family Medicine; ATTEND Family Medicine
DX: T87.43 Infection of amputation stump, right lower extremity (principal); I50.22 Chronic systolic (congestive) heart failure; N18.4 Chronic kidney disease, stage 4 (severe); L02.611 Cutaneous abscess of right foot; I13.0 Hypertensive heart and chronic kidney disease with heart failure and stage 1 through stage 4 chronic kidney disease, or unspecified chronic kidney disease; M86.8X7 Other osteomyelitis, ankle and foot; B37.49 Other urogenital candidiasis; I25.10 Atherosclerotic heart disease of native coronary artery without angina pectoris; E11.65 Type 2 diabetes mellitus with hyperglycemia; J44.9 Chronic obstructive pulmonary disease, unspecified; E78.5 Hyperlipidemia, unspecified; I95.1 Orthostatic hypotension; E11.22 Type 2 diabetes mellitus with diabetic chronic kidney disease; E11.51 Type 2 diabetes mellitus with diabetic peripheral angiopathy without gangrene; E87.5 Hyperkalemia; Y83.5 Amputation of limb(s) as the cause of abnormal reaction of the patient, or of later complication, without mention of misadventure at the time of the procedure; E11.69 Type 2 diabetes mellitus with other specified complication; R39.89 Other symptoms and signs involving the genitourinary system; B96.20 Unspecified Escherichia coli [E. coli] as the cause of diseases classified elsewhere; D63.1 Anemia in chronic kidney disease; B95.2 Enterococcus as the cause of diseases classified elsewhere; Z79.899 Other long term (current) drug therapy; Z89.422 Acquired absence of other left toe(s); Z79.82 Long term (current) use of aspirin; I25.2 Old myocardial infarction; Z95.1 Presence of aortocoronary bypass graft; Z90.49 Acquired absence of other specified parts of digestive tract; Z95.810 Presence of automatic (implantable) cardiac defibrillator; Z87.891 Personal history of nicotine dependence; Z79.4 Long term (current) use of insulin
CPT/HCPCS: 36415; 36416; 80048; 80053; 80202; 81001; 82728; 83540; 83550; 83605; 84466; 85025; 85652; 86140; 87040; 87070; 87086; 87186; 87205; 93005; 93010; 96365; 96367; 96375; J0692; J1644; J1815; J1956; J3370; J3490; J7030; J7050

== ENCOUNTER 2020-08-10 18:21 | Emergency (ER) | payer MEDICAID, MEDICARE, OTHER ==
[2020-08-10 19:02] LABS: #Eosinphils 0.2 thou/uL (0.0-0.7); #Lymphocytes 2.3 thou/uL (1.20-3.40); #Monocytes 0.4 thou/uL (0.11-0.59); #Neutrophils 7.2 thou/uL (1.40-6.50); %Basophils 0.2 % (0.0-1.0); %Eosinophils 1.6 % (0.0-10.0); %Monocytes 4.1 % (0.0-10.0); %Neutrophils 71.1 % (42.0-75.0); Hemoglobin 12.2 g/dL (14.0-18.0); Mean Corpuscular HGB CONC 33.7 g/dL (32.0-36.0); Mean Corpuscular Volume 77.2 fL (78.0-98.0); Mean Platelet Volume 8.6 fL (7.4-10.4); Platelet Count 280 thou/uL (130-400); RBC Distribution Width 15.1 % (11.5-14.5); White Blood Cell (WBC) Count 10.2 thou/uL (4.8-10.8)
[2020-08-10] MEDS ORDERED: Ondansetron ODT 4 MG TAB ONE (19:18)
[2020-08-10 19:25] LABS: ALT (SGPT) 16 U/L (8-55); AST (SGOT) 17 U/L (5-34); Alkaline Phosphatase 43 U/L (40-110); Anion Gap 15 mmol/L (10-20); BUN (Urea Nitrogen) 41 mg/dL (8.4-25.7); Bilirubin, Total 0.2 mg/dL (0.2-1.2); Calc. Creatinine Clearance 0 mL/min (70-130); Calcium 9.4 mg/dL (7.8-10.44); Carbon Dioxide 21 mmol/L (22-29); Chloride 101 mmol/L (98-107); Glucose 350 mg/dL (70-105); Potassium 4.6 mmol/L (3.5-5.1); Sodium 132 mmol/L (136-145)
[2020-08-10 19:52] LABS: Bacteria/HPF None Seen HPF (None Seen); Bilirubin Negative (Negative); Blood, Urine 1+ (Negative); Clarity Clear (Clear); Glucose, Urine (Dipstick) Greater than 1000 mg/dL (Negative); Ketone, Urine Negative (Negative); Leukocyte Negative Leu/uL (Negative); Nitrite Negative (Negative); Protein, Urine (Dipstick) 70 mg/dL (Neg-Trace); RBC/HPF 0-3 HPF (0-3); Specific Gravity, Urine 1.019 (1.002-1.036); Squamous Epithelial 0-3 HPF (0-3); Urobilinogen Normal mg/dL (Less than 2); WBC/HPF 0-3 HPF (0-3); pH, Urine 6.5 (5.0-9.0)
== END 2020-08-10 20:33 | disposition home or self-care (01) ==
LOC: ERS 18:21
DX: K64.4 Residual hemorrhoidal skin tags (principal); K59.00 Constipation, unspecified; I10 Essential (primary) hypertension; I25.10 Atherosclerotic heart disease of native coronary artery without angina pectoris; I25.2 Old myocardial infarction; E11.9 Type 2 diabetes mellitus without complications; E78.5 Hyperlipidemia, unspecified; J44.9 Chronic obstructive pulmonary disease, unspecified; Z79.82 Long term (current) use of aspirin; Z79.899 Other long term (current) drug therapy; Z79.4 Long term (current) use of insulin
CPT/HCPCS: 36415; 80053; 81003; 81015; 85025; 94760; 96372; J0500; Q0162

== ENCOUNTER 2020-09-12 12:59 | Observation (INO) | payer MEDICARE, MEDICAID ==
[2020-09-12 13:33] LABS: #Basophils 0.1 thou/uL (0.0-0.2); #Eosinphils 0.3 thou/uL (0.0-0.7); #Lymphocytes 1.9 thou/uL (1.20-3.40); #Monocytes 0.3 thou/uL (0.11-0.59); #Neutrophils 3.2 thou/uL (1.40-6.50); %Basophils 0.9 % (0.0-1.0); %Eosinophils 4.8 % (0.0-10.0); %Lymphocytes 33.5 % (21.0-51.0); %Monocytes 5.2 % (0.0-10.0); %Neutrophils 55.6 % (42.0-75.0); Hemoglobin 12.5 g/dL (14.0-18.0); Mean Corpuscular HGB CONC 33.2 g/dL (32.0-36.0); Mean Corpuscular Hemoglobin 26.4 pg (27.0-31.0); Mean Corpuscular Volume 79.5 fL (78.0-98.0); Mean Platelet Volume 8.6 fL (7.4-10.4); Platelet Count 244 thou/uL (130-400); RBC Distribution Width 14.2 % (11.5-14.5); Red Blood Cell (RBC) Count 4.75 mill/uL (4.70-6.10); White Blood Cell (WBC) Count 5.8 thou/uL (4.8-10.8)
[2020-09-12 13:47] LABS: Bacteria/HPF None Seen HPF (None Seen); Bilirubin Negative (Negative); Blood, Urine 1+ (Negative); Clarity Clear (Clear); Glucose, Urine (Dipstick) Greater than 1000 mg/dL (Negative); Ketone, Urine Negative (Negative); Leukocyte Negative Leu/uL (Negative); Nitrite Negative (Negative); Protein, Urine (Dipstick) 50 mg/dL (Neg-Trace); RBC/HPF 0-3 HPF (0-3); Squamous Epithelial 0-3 HPF (0-3); Urobilinogen Normal mg/dL (Less than 2); WBC/HPF 0-3 HPF (0-3)
[2020-09-12 14:05] LABS: ALT (SGPT) 30 U/L (8-55); AST (SGOT) 23 U/L (5-34); Albumin 3.9 g/dL (3.5-5.0); Alkaline Phosphatase 44 U/L (40-110); Anion Gap 15 mmol/L (10-20); BUN (Urea Nitrogen) 32 mg/dL (8.4-25.7); Bilirubin, Total 0.3 mg/dL (0.2-1.2); Calc. Creatinine Clearance 0 mL/min (70-130); Calcium 9.7 mg/dL (7.8-10.44); Carbon Dioxide 21 mmol/L (22-29); Chloride 96 mmol/L (98-107); Globulin 3.7 g/dL (2.4-3.5); Potassium 4.8 mmol/L (3.5-5.1); Protein, Total 7.6 g/dL (6.0-8.3); Sodium 127 mmol/L (136-145)
[2020-09-12 14:20] LABS: Glucose 670 mg/dL (70-105)
[2020-09-12] MEDS ORDERED: INSULIN REGULAR IN 0.9 % NACL 100 UNIT/100 ML BAG ONE (15:10)
[2020-09-12] MEDS ORDERED: Dextrose 5% in Water 1,000 ML IV PRN (16:04)
[2020-09-12] MEDS ORDERED: Dextrose 50% Abboject 50 ML SYRINGE SLOW IVP PRN (16:04)
[2020-09-12] MEDS ORDERED: HumaLOG 300 UNITS/3 ML VIAL SC PRN (16:04)
[2020-09-12] MEDS ORDERED: Insulin Regular 300 UNITS/3 ML VIAL ONE (16:24)
[2020-09-12] MEDS ORDERED: Sodium Chloride 0.9% 1,000 ML IV SCH (17:00)
[2020-09-12 17:23] LABS: Anion Gap 12 mmol/L (10-20); BUN (Urea Nitrogen) 31 mg/dL (8.4-25.7); Calc. Creatinine Clearance 0 mL/min (70-130); Calcium 9.1 mg/dL (7.8-10.44); Carbon Dioxide 17 mmol/L (22-29); Chloride 105 mmol/L (98-107); Glucose 389 mg/dL (70-105); Potassium 4.4 mmol/L (3.5-5.1); Sodium 130 mmol/L (136-145)
[2020-09-12] MEDS ORDERED: HYDROcodone/Acetaminophen 7.5/325 mg Tablet PO PRN (17:28)
[2020-09-12] MEDS ORDERED: Rosuvastatin 20 MG TAB PO SCH (21:00)
[2020-09-12] MEDS ORDERED: Fenofibrate Nanocrystallized 145 MG TAB PO SCH (21:00)
[2020-09-12] MEDS: Gabapentin 300 MG CAP PO SCH (21:52)
[2020-09-12] MEDS: Lantus 1000 UNITS/10 ML VIAL SC SCH (22:37)
[2020-09-12] MEDS: Sodium Chloride 0.9% 1,000 ML IV SCH (23:13)
[2020-09-12 23:16] VITALS: BMI 26.6
[2020-09-13] MEDS: Sodium Chloride 0.9% 1,000 ML IV SCH (03:44)
[2020-09-13] MEDS: HumaLOG 300 UNITS/3 ML VIAL SC PRN ×2 (05:51→11:21)
[2020-09-13 07:11] LABS: Anion Gap 13 mmol/L (10-20); BUN (Urea Nitrogen) 26 mg/dL (8.4-25.7); Calc. Creatinine Clearance 49 mL/min (70-130); Calcium 9.1 mg/dL (7.8-10.44); Carbon Dioxide 18 mmol/L (22-29); Chloride 107 mmol/L (98-107); Glucose 164 mg/dL (70-105); Potassium 4.2 mmol/L (3.5-5.1); Sodium 134 mmol/L (136-145)
[2020-09-13] MEDS ORDERED: Aspirin 81 mg Enteric Coated Tablet PO SCH (09:00)
[2020-09-13] MEDS ORDERED: Icosapent Ethyl 1 GM CAPSULE PO SCH (09:00)
[2020-09-13] MEDS: Gabapentin 300 MG CAP PO SCH (09:00)
[2020-09-13] MEDS ORDERED: Ferrous Sulfate 325 MG TAB PO SCH (09:00)
[2020-09-13] MEDS ORDERED: Carvedilol 3.125 MG TAB PO SCH (09:00)
[2020-09-13] MEDS: Lantus 1000 UNITS/10 ML VIAL SC SCH (09:00)
[2020-09-13] MEDS ORDERED: Ascorbic Acid 500 mg Chewable Tablet PO SCH (09:00)
[2020-09-13] MEDS ORDERED: Enoxaparin Sodium 40 MG/0.4 ML SYRINGE SC SCH (09:00)
[2020-09-13 12:48] VITALS: BP 128/82; TEMP 98.1
[2020-09-13 14:35] LABS: SARS-CoV-2 PCR by NAA Not Detected (NotDetected)
[2020-09-13] MEDS ORDERED: Non-Formulary Item 1 EACH (Icosapent Ethyl [Vascepa] 0.5 GM Capsule) PO SCH (21:00)
[2020-09-13] MEDS ORDERED: Midodrine HCl 5 MG TAB PO SCH (21:00)
[2020-09-13] MEDS ORDERED: Gabapentin 300 MG CAP PO SCH (21:00)
== END 2020-09-13 13:44 | disposition home or self-care (01) ==
LOC: ERS 12:59 → T4-B 15:17
PROVIDERS: ADMIT Family Medicine; ATTEND Family Medicine
DX: E11.00 Type 2 diabetes mellitus with hyperosmolarity without nonketotic hyperglycemic-hyperosmolar coma (NKHHC) (principal); E11.65 Type 2 diabetes mellitus with hyperglycemia; I13.0 Hypertensive heart and chronic kidney disease with heart failure and stage 1 through stage 4 chronic kidney disease, or unspecified chronic kidney disease; E11.22 Type 2 diabetes mellitus with diabetic chronic kidney disease; N18.4 Chronic kidney disease, stage 4 (severe); I50.20 Unspecified systolic (congestive) heart failure; I25.10 Atherosclerotic heart disease of native coronary artery without angina pectoris; J44.9 Chronic obstructive pulmonary disease, unspecified; I25.2 Old myocardial infarction; E78.5 Hyperlipidemia, unspecified; D50.9 Iron deficiency anemia, unspecified; Z87.891 Personal history of nicotine dependence; Z79.4 Long term (current) use of insulin; Z79.82 Long term (current) use of aspirin; Z79.899 Other long term (current) drug therapy; Z95.1 Presence of aortocoronary bypass graft; Z95.810 Presence of automatic (implantable) cardiac defibrillator; Z20.822 Contact with and (suspected) exposure to COVID-19
CPT/HCPCS: 80048 ×2; 80053; 82010; 82962 ×2; 83930; 84484; 85025; 93005; 96372; 96374; 99285; G0378 ×3; U0003; U0005; 36415; 36416; 81003; 81015; 87635; J1650; J1815; J3480; J7050

== ENCOUNTER 2020-10-11 13:05 | Inpatient (IN) | payer MEDICARE, MEDICAID ==
[2020-10-11 13:41] LABS: #Basophils 0.1 thou/uL (0.0-0.2); #Eosinphils 0.1 thou/uL (0.0-0.7); #Lymphocytes 1.9 thou/uL (1.20-3.40); #Monocytes 0.4 thou/uL (0.11-0.59); #Neutrophils 7.3 thou/uL (1.40-6.50); %Eosinophils 0.9 % (0.0-10.0); %Lymphocytes 19.2 % (21.0-51.0); %Monocytes 4.2 % (0.0-10.0); %Neutrophils 74.7 % (42.0-75.0); Hemoglobin 12.5 g/dL (14.0-18.0); Mean Corpuscular HGB CONC 35.3 g/dL (32.0-36.0); Mean Corpuscular Hemoglobin 27.6 pg (27.0-31.0); Mean Platelet Volume 8.9 fL (7.4-10.4); Platelet Count 248 thou/uL (130-400); RBC Distribution Width 13.7 % (11.5-14.5); Red Blood Cell (RBC) Count 4.55 mill/uL (4.70-6.10); White Blood Cell (WBC) Count 9.7 thou/uL (4.8-10.8)
[2020-10-11 14:05] LABS: ALT (SGPT) 27 U/L (8-55); AST (SGOT) 20 U/L (5-34); Albumin 3.7 g/dL (3.5-5.0); Alkaline Phosphatase 47 U/L (40-110); Anion Gap 17 mmol/L (10-20); BUN (Urea Nitrogen) 36 mg/dL (8.4-25.7); Bilirubin, Total 0.5 mg/dL (0.2-1.2); Calc. Creatinine Clearance 0 mL/min (70-130); Calcium 9.2 mg/dL (7.8-10.44); Carbon Dioxide 19 mmol/L (22-29); Chloride 94 mmol/L (98-107); Globulin 3.3 g/dL (2.4-3.5); Lipase 90 U/L (8-78); Sodium 124 mmol/L (136-145)
[2020-10-11 14:13] LABS: Glucose 734 mg/dL (70-105)
[2020-10-11 14:26] LABS: CKMB 3.4 ng/mL (0-6.6)
[2020-10-11] MEDS ORDERED: Insulin Regular 300 UNITS/3 ML VIAL ONE (15:00)
[2020-10-11] MEDS ORDERED: Calcium Carbonate 500 MG ChewTAB PO PRN (15:08)
[2020-10-11] MEDS ORDERED: Acetaminophen 325 MG TAB PO PRN (15:08)
[2020-10-11] MEDS ORDERED: Ondansetron ODT 4 MG TAB PO PRN (15:08)
[2020-10-11] MEDS ORDERED: Nitroglycerin 0.4 MG TAB (25 Tab Bottle) SL PRN (15:10)
[2020-10-11] MEDS ORDERED: Dextrose 50% Abboject 50 ML SYRINGE SLOW IVP PRN (15:17)
[2020-10-11] MEDS ORDERED: Dextrose 5% in Water 1,000 ML IV PRN (15:17)
[2020-10-11] MEDS ORDERED: Lantus 1000 UNITS/10 ML VIAL SC SCH (15:45)
[2020-10-11] MEDS ORDERED: Lactated Ringer's 500 ML IV SCH (17:00)
[2020-10-11 17:33] VITALS: BMI 27.3
[2020-10-11 17:44] LABS: Troponin I 0.028 ng/mL (< 0.028)
[2020-10-11 18:16] LABS: Anion Gap 16 mmol/L (10-20); BUN (Urea Nitrogen) 33 mg/dL (8.4-25.7); Calc. Creatinine Clearance 34 mL/min (70-130); Calcium 9.3 mg/dL (7.8-10.44); Carbon Dioxide 19 mmol/L (22-29); Chloride 102 mmol/L (98-107); Glucose 358 mg/dL (70-105); Sodium 133 mmol/L (136-145)
[2020-10-11] MEDS: HumaLOG 300 UNITS/3 ML VIAL SC PRN ×2 (18:24→21:05)
[2020-10-11 18:38] LABS: Bacteria/HPF None Seen HPF (None Seen); RBC/HPF 0-3 HPF (0-3); Squamous Epithelial 0-3 HPF (0-3); WBC/HPF 0-3 HPF (0-3)
[2020-10-11 18:57] LABS: Creatinine, Urine 31.51 mg/dL (63-166)
[2020-10-11] MEDS: Fenofibrate Nanocrystallized 145 MG TAB PO SCH (21:04)
[2020-10-11] MEDS: Gabapentin 300 MG CAP PO SCH (21:04)
[2020-10-11] MEDS: Rosuvastatin 20 MG TAB PO SCH (21:05)
[2020-10-11 21:11] LABS: Troponin I 0.077 ng/mL (< 0.028)
[2020-10-11 22:36] LABS: SARS-CoV-2 PCR by NAA Not Detected (NotDetected)
[2020-10-12 07:17] LABS: ALT (SGPT) 25 U/L (8-55); AST (SGOT) 20 U/L (5-34); Albumin 3.5 g/dL (3.5-5.0); Alkaline Phosphatase 40 U/L (40-110); Anion Gap 11 mmol/L (10-20); BUN (Urea Nitrogen) 29 mg/dL (8.4-25.7); Bilirubin, Total 0.3 mg/dL (0.2-1.2); Calc. Creatinine Clearance 37 mL/min (70-130); Calcium 9.2 mg/dL (7.8-10.44); Carbon Dioxide 23 mmol/L (22-29); Cardiac Risk 5.7 (Less than 4.5); Chloride 105 mmol/L (98-107); Cholesterol 132 mg/dl (< 200 Desired); Globulin 3.4 g/dL (2.4-3.5); Glucose 154 mg/dL (70-105); HDL Cholesterol 23 mg/dL (>60 Neg Risk); LDL Cholesterol, Calculated 57 mg/dL; Potassium 4.2 mmol/L (3.5-5.1); Protein, Total 6.9 g/dL (6.0-8.3); Sodium 135 mmol/L (136-145); Triglycerides 261 mg/dL (Less than 150)
[2020-10-12] MEDS ORDERED: Aspirin Chewable 81 MG TAB PO SCH (09:00)
[2020-10-12] MEDS: Icosapent Ethyl 1 GM CAPSULE PO SCH (09:40)
[2020-10-12] MEDS: Gabapentin 300 MG CAP PO SCH ×2 (09:41→21:14)
[2020-10-12] MEDS: Enoxaparin Sodium 30 MG/0.3 ML SYRINGE SC SCH (09:41)
[2020-10-12] MEDS: Lantus 1000 UNITS/10 ML VIAL SC SCH (09:42)
[2020-10-12 10:14] LABS: HIV (1/2) Antibody/Antigen Non-Reactive (NonReactive); HIV 1/2 INDEX 0.24 S/CO (<1.00); Hep C IgG Ab Non-Reactive (NonReactive); Hep C Index 0.08 S/CO (0-0.79)
[2020-10-12] MEDS: HumaLOG 300 UNITS/3 ML VIAL SC PRN (18:08)
[2020-10-12] MEDS: Fenofibrate Nanocrystallized 145 MG TAB PO SCH (21:14)
[2020-10-12] MEDS: Rosuvastatin 20 MG TAB PO SCH (21:14)
[2020-10-13] MEDS ORDERED: HumaLOG 300 UNITS/3 ML VIAL SC PRN (01:00)
[2020-10-13] MEDS: HumaLOG 300 UNITS/3 ML VIAL SC PRN ×3 (04:29→17:14)
[2020-10-13 04:48] LABS: ALT (SGPT) 34 U/L (8-55); AST (SGOT) 29 U/L (5-34); Albumin 3.5 g/dL (3.5-5.0); Alkaline Phosphatase 40 U/L (40-110); Anion Gap 13 mmol/L (10-20); BUN (Urea Nitrogen) 33 mg/dL (8.4-25.7); Bilirubin, Total 0.3 mg/dL (0.2-1.2); Calc. Creatinine Clearance 31 mL/min (70-130); Calcium 9.4 mg/dL (7.8-10.44); Carbon Dioxide 22 mmol/L (22-29); Chloride 101 mmol/L (98-107); Globulin 3.8 g/dL (2.4-3.5); Glucose 224 mg/dL (70-105); Potassium 4.4 mmol/L (3.5-5.1); Protein, Total 7.3 g/dL (6.0-8.3); Sodium 132 mmol/L (136-145)
[2020-10-13] MEDS ORDERED: Aspirin 81 mg Enteric Coated Tablet PO SCH (09:00)
[2020-10-13] MEDS ORDERED: Midodrine HCl 5 MG TAB PO SCH (09:00)
[2020-10-13] MEDS ORDERED: Non-Formulary Item 1 EACH (Midodrine Hcl [Midodrine Hcl] 10 MG Tablet) PO SCH (09:00)
[2020-10-13] MEDS: Enoxaparin Sodium 30 MG/0.3 ML SYRINGE SC SCH (09:09)
[2020-10-13] MEDS: Icosapent Ethyl 1 GM CAPSULE PO SCH (09:10)
[2020-10-13] MEDS: Gabapentin 300 MG CAP PO SCH (09:10)
[2020-10-13] MEDS: Lantus 1000 UNITS/10 ML VIAL SC SCH (09:12)
[2020-10-13 14:59] VITALS: BP 132/78; TEMP 98.4
== END 2020-10-13 18:44 | disposition home or self-care (01) | DRG 303 ==
LOC: ERS 13:05 → 2NO 16:37
PROVIDERS: ADMIT Student in an Organized Health Care Education/Training Program; ATTEND Student in an Organized Health Care Education/Training Program
DX: I25.10 Atherosclerotic heart disease of native coronary artery without angina pectoris (principal); N18.4 Chronic kidney disease, stage 4 (severe); I25.110 Atherosclerotic heart disease of native coronary artery with unstable angina pectoris; N17.9 Acute kidney failure, unspecified; I13.0 Hypertensive heart and chronic kidney disease with heart failure and stage 1 through stage 4 chronic kidney disease, or unspecified chronic kidney disease; I50.22 Chronic systolic (congestive) heart failure; E78.5 Hyperlipidemia, unspecified; E87.5 Hyperkalemia; E86.0 Dehydration; R73.9 Hyperglycemia, unspecified; D63.8 Anemia in other chronic diseases classified elsewhere; Z95.5 Presence of coronary angioplasty implant and graft; Z95.1 Presence of aortocoronary bypass graft; Z90.49 Acquired absence of other specified parts of digestive tract; Z95.810 Presence of automatic (implantable) cardiac defibrillator; I25.2 Old myocardial infarction; Z89.422 Acquired absence of other left toe(s); Z89.421 Acquired absence of other right toe(s); Z87.891 Personal history of nicotine dependence; Z79.82 Long term (current) use of aspirin; Z79.4 Long term (current) use of insulin
CPT/HCPCS: 36415; 36416; 71045; 80053; 80061; 81015; 82010; 82553; 82570; 83690; 83880; 83930; 84300; 84484; 85025; 85379; 86803; 87389; 87635; 93005; 93306; 94760; 96374; J1650; J1815; U0003; U0005

== ENCOUNTER 2020-10-14 09:30 | Emergency (ER) | payer MEDICARE, MEDICAID ==
[2020-10-14 10:14] LABS: #Basophils 0.1 thou/uL (0.0-0.2); #Eosinphils 0.1 thou/uL (0.0-0.7); #Lymphocytes 2.2 thou/uL (1.20-3.40); #Monocytes 0.7 thou/uL (0.11-0.59); #Neutrophils 10.2 thou/uL (1.40-6.50); %Basophils 0.5 % (0.0-1.0); %Eosinophils 0.5 % (0.0-10.0); %Lymphocytes 16.5 % (21.0-51.0); %Neutrophils 77.5 % (42.0-75.0); Hemoglobin 13.2 g/dL (14.0-18.0); Mean Corpuscular HGB CONC 33.5 g/dL (32.0-36.0); Mean Corpuscular Hemoglobin 26.8 pg (27.0-31.0); Mean Platelet Volume 8.7 fL (7.4-10.4); Platelet Count 271 thou/uL (130-400); RBC Distribution Width 14.2 % (11.5-14.5); Red Blood Cell (RBC) Count 4.91 mill/uL (4.70-6.10); White Blood Cell (WBC) Count 13.1 thou/uL (4.8-10.8)
[2020-10-14 10:35] LABS: ALT (SGPT) 27 U/L (8-55); AST (SGOT) 17 U/L (5-34); Albumin 3.6 g/dL (3.5-5.0); Alkaline Phosphatase 42 U/L (40-110); Anion Gap 15 mmol/L (10-20); BUN (Urea Nitrogen) 40 mg/dL (8.4-25.7); Bilirubin, Total 0.5 mg/dL (0.2-1.2); CK (CPK) 92 U/L (30-200); Calc. Creatinine Clearance 0 mL/min (70-130); Calcium 9.3 mg/dL (7.8-10.44); Carbon Dioxide 18 mmol/L (22-29); Chloride 105 mmol/L (98-107); Globulin 3.7 g/dL (2.4-3.5); Glucose 222 mg/dL (70-105); Lipase 45 U/L (8-78); Potassium 4.9 mmol/L (3.5-5.1); Protein, Total 7.3 g/dL (6.0-8.3); Sodium 133 mmol/L (136-145)
== END 2020-10-14 11:33 | disposition home or self-care (01) ==
LOC: ERS 09:30
DX: K56.41 Fecal impaction (principal); E11.22 Type 2 diabetes mellitus with diabetic chronic kidney disease; I12.9 Hypertensive chronic kidney disease with stage 1 through stage 4 chronic kidney disease, or unspecified chronic kidney disease; N18.9 Chronic kidney disease, unspecified; I25.2 Old myocardial infarction; J44.9 Chronic obstructive pulmonary disease, unspecified; Z87.891 Personal history of nicotine dependence; Z79.4 Long term (current) use of insulin; Z79.82 Long term (current) use of aspirin; Z79.899 Other long term (current) drug therapy
CPT/HCPCS: 36415; 74176; 80053; 82550; 83690; 84484; 85025; 93005

== ENCOUNTER 2020-10-22 13:46 | Emergency (ER) | payer MEDICARE, MEDICAID ==
[2020-10-22 14:56] LABS: #Eosinphils 0.1 thou/uL (0.0-0.7); #Lymphocytes 2.5 thou/uL (1.20-3.40); #Monocytes 0.6 thou/uL (0.11-0.59); #Neutrophils 6.1 thou/uL (1.40-6.50); %Basophils 0.2 % (0.0-1.0); %Eosinophils 1.5 % (0.0-10.0); %Lymphocytes 26.4 % (21.0-51.0); %Neutrophils 65.8 % (42.0-75.0); Hemoglobin 11.4 g/dL (14.0-18.0); Mean Corpuscular HGB CONC 33.5 g/dL (32.0-36.0); Mean Corpuscular Hemoglobin 27.2 pg (27.0-31.0); Mean Corpuscular Volume 81.1 fL (78.0-98.0); Mean Platelet Volume 7.8 fL (7.4-10.4); Platelet Count 334 thou/uL (130-400); RBC Distribution Width 13.9 % (11.5-14.5); Red Blood Cell (RBC) Count 4.21 mill/uL (4.70-6.10); White Blood Cell (WBC) Count 9.3 thou/uL (4.8-10.8)
[2020-10-22 15:18] LABS: ALT (SGPT) 13 U/L (8-55); AST (SGOT) 18 U/L (5-34); Albumin 3.7 g/dL (3.5-5.0); Alkaline Phosphatase 33 U/L (40-110); Anion Gap 14 mmol/L (10-20); BUN (Urea Nitrogen) 45 mg/dL (8.4-25.7); Bilirubin, Total 0.3 mg/dL (0.2-1.2); Calc. Creatinine Clearance 0 mL/min (70-130); Calcium 9.1 mg/dL (7.8-10.44); Carbon Dioxide 19 mmol/L (22-29); Chloride 107 mmol/L (98-107); Globulin 3.8 g/dL (2.4-3.5); Glucose 120 mg/dL (70-105); Potassium 4.6 mmol/L (3.5-5.1); Protein, Total 7.5 g/dL (6.0-8.3); Sodium 135 mmol/L (136-145)
== END 2020-10-22 15:59 | disposition home or self-care (01) ==
LOC: ERS 13:46
DX: L03.116 Cellulitis of left lower limb (principal); E11.9 Type 2 diabetes mellitus without complications; E78.5 Hyperlipidemia, unspecified; I10 Essential (primary) hypertension; J44.9 Chronic obstructive pulmonary disease, unspecified; Z87.891 Personal history of nicotine dependence; Z79.82 Long term (current) use of aspirin; Z79.4 Long term (current) use of insulin; Z79.899 Other long term (current) drug therapy
CPT/HCPCS: 36415; 80053; 85025; 99283

== ENCOUNTER 2020-11-30 14:38 | Emergency (ER) | payer MEDICARE, MEDICAID ==
[2020-11-30] MEDS ORDERED: Ketorolac Tromethamine 30 MG/ML VIAL ONE (16:22)
[2020-11-30] MEDS ORDERED: Glycerin Adult Supp. (24 ct jar) RC SCH (16:30)
[2020-11-30 16:43] LABS: #Basophils 0.1 thou/uL (0.0-0.2); #Eosinphils 0.3 thou/uL (0.0-0.7); #Monocytes 0.4 thou/uL (0.11-0.59); #Neutrophils 4.7 thou/uL (1.40-6.50); %Basophils 0.9 % (0.0-1.0); %Eosinophils 3.6 % (0.0-10.0); %Lymphocytes 27.1 % (21.0-51.0); %Monocytes 5.4 % (0.0-10.0); Hemoglobin 11.3 g/dL (14.0-18.0); Mean Corpuscular Hemoglobin 26.3 pg (27.0-31.0); Mean Corpuscular Volume 79.7 fL (78.0-98.0); Mean Platelet Volume 8.1 fL (7.4-10.4); Platelet Count 266 thou/uL (130-400); RBC Distribution Width 13.5 % (11.5-14.5); Red Blood Cell (RBC) Count 4.29 mill/uL (4.70-6.10); White Blood Cell (WBC) Count 7.5 thou/uL (4.8-10.8)
[2020-11-30 17:17] LABS: ALT (SGPT) 22 U/L (8-55); AST (SGOT) 20 U/L (5-34); Albumin 3.7 g/dL (3.5-5.0); Alkaline Phosphatase 34 U/L (40-110); Anion Gap 13 mmol/L (10-20); BUN (Urea Nitrogen) 36 mg/dL (8.4-25.7); Bilirubin, Total 0.3 mg/dL (0.2-1.2); Calc. Creatinine Clearance 0 mL/min (70-130); Calcium 9.2 mg/dL (7.8-10.44); Carbon Dioxide 20 mmol/L (22-29); Chloride 100 mmol/L (98-107); Globulin 3.5 g/dL (2.4-3.5); Glucose 499 mg/dL (70-105); Lipase 135 U/L (8-78); Potassium 4.8 mmol/L (3.5-5.1); Protein, Total 7.2 g/dL (6.0-8.3); Sodium 128 mmol/L (136-145)
[2020-11-30] MEDS ORDERED: Insulin Regular 300 UNITS/3 ML VIAL ONE (18:40)
== END 2020-11-30 19:09 | disposition home or self-care (01) ==
LOC: ERS 14:38
DX: K59.00 Constipation, unspecified (principal); E11.65 Type 2 diabetes mellitus with hyperglycemia; I25.2 Old myocardial infarction; E78.5 Hyperlipidemia, unspecified; I10 Essential (primary) hypertension; J44.9 Chronic obstructive pulmonary disease, unspecified; Z87.891 Personal history of nicotine dependence; Z79.899 Other long term (current) drug therapy; Z79.4 Long term (current) use of insulin
CPT/HCPCS: 74176; 80053; 83690; 85025; 93005; 96374; J1815; J1885

== ENCOUNTER 2020-12-04 15:01 | Emergency (ER) | payer MEDICARE, MEDICAID ==
[2020-12-04 15:58] LABS: #Basophils 0.1 thou/uL (0.0-0.2); #Eosinphils 0.2 thou/uL (0.0-0.7); #Lymphocytes 2.1 thou/uL (1.20-3.40); #Monocytes 0.5 thou/uL (0.11-0.59); #Neutrophils 7.4 thou/uL (1.40-6.50); %Basophils 0.7 % (0.0-1.0); %Eosinophils 2.2 % (0.0-10.0); %Lymphocytes 20.3 % (21.0-51.0); %Monocytes 4.8 % (0.0-10.0); %Neutrophils 71.9 % (42.0-75.0); Hemoglobin 11.3 g/dL (14.0-18.0); Mean Corpuscular HGB CONC 33.8 g/dL (32.0-36.0); Mean Corpuscular Hemoglobin 26.8 pg (27.0-31.0); Mean Corpuscular Volume 79.3 fL (78.0-98.0); Platelet Count 299 thou/uL (130-400); RBC Distribution Width 13.4 % (11.5-14.5); Red Blood Cell (RBC) Count 4.22 mill/uL (4.70-6.10); White Blood Cell (WBC) Count 10.2 thou/uL (4.8-10.8)
[2020-12-04 16:20] LABS: ALT (SGPT) 22 U/L (8-55); AST (SGOT) 21 U/L (5-34); Albumin 3.5 g/dL (3.5-5.0); Alkaline Phosphatase 29 U/L (40-110); Anion Gap 14 mmol/L (10-20); BUN (Urea Nitrogen) 37 mg/dL (8.4-25.7); Bilirubin, Total 0.4 mg/dL (0.2-1.2); Calc. Creatinine Clearance 0 mL/min (70-130); Calcium 8.9 mg/dL (7.8-10.44); Carbon Dioxide 20 mmol/L (22-29); Chloride 104 mmol/L (98-107); Globulin 3.6 g/dL (2.4-3.5); Glucose 368 mg/dL (70-105); Lipase 63 U/L (8-78); Potassium 5.1 mmol/L (3.5-5.1); Protein, Total 7.1 g/dL (6.0-8.3); Sodium 133 mmol/L (136-145)
[2020-12-04 19:18] LABS: Bilirubin Negative (Negative); Blood, Urine Small (Negative); Glucose, Urine (Dipstick) >=1000 mg/dL (Negative); Ketone, Urine Negative (Negative); Leukocyte Negative (Negative); Nitrite Negative (Negative); Protein, Urine (Dipstick) 100 mg/dL (Neg-Trace); Urobilinogen 0.2 mg/dL (Less than 2)
[2020-12-04 19:24] LABS: Clarity Clear (Clear)
[2020-12-04 19:25] LABS: Bacteria/HPF None Seen HPF (None Seen); RBC/HPF 0-3 HPF (0-3); Squamous Epithelial None Seen HPF (0-3); WBC/HPF 0-3 HPF (0-3)
== END 2020-12-04 20:31 | disposition home or self-care (01) ==
LOC: ERS 15:01
DX: K59.00 Constipation, unspecified (principal); I25.2 Old myocardial infarction; E78.5 Hyperlipidemia, unspecified; E11.9 Type 2 diabetes mellitus without complications; J44.9 Chronic obstructive pulmonary disease, unspecified; Z87.891 Personal history of nicotine dependence; Z79.82 Long term (current) use of aspirin; Z79.899 Other long term (current) drug therapy; Z79.4 Long term (current) use of insulin
CPT/HCPCS: 36415; 74176; 80053; 81003; 81015; 83690; 84484; 85025; 93005

== ENCOUNTER 2020-12-26 09:55 | Inpatient (IN) | payer MEDICARE, MEDICAID ==
[2020-12-26 10:45] LABS: #Basophils 0.1 thou/uL (0.0-0.2); #Eosinphils 0.2 thou/uL (0.0-0.7); #Lymphocytes 1.8 thou/uL (1.20-3.40); #Monocytes 0.3 thou/uL (0.11-0.59); #Neutrophils 5.3 thou/uL (1.40-6.50); %Basophils 0.9 % (0.0-1.0); %Eosinophils 3.1 % (0.0-10.0); %Lymphocytes 23.2 % (21.0-51.0); %Monocytes 4.2 % (0.0-10.0); %Neutrophils 68.7 % (42.0-75.0); Hemoglobin 12.1 g/dL (14.0-18.0); Mean Corpuscular HGB CONC 33.9 g/dL (32.0-36.0); Mean Corpuscular Hemoglobin 27.1 pg (27.0-31.0); Mean Corpuscular Volume 79.9 fL (78.0-98.0); Mean Platelet Volume 8.6 fL (7.4-10.4); Platelet Count 288 thou/uL (130-400); RBC Distribution Width 13.5 % (11.5-14.5); Red Blood Cell (RBC) Count 4.47 mill/uL (4.70-6.10); White Blood Cell (WBC) Count 7.7 thou/uL (4.8-10.8)
[2020-12-26] MEDS ORDERED: Acetaminophen 325 MG TAB ONE (10:45)
[2020-12-26] MEDS ORDERED: Cefepime 2 GM VIAL ONE (10:45)
[2020-12-26] MEDS ORDERED: Vancomycin 1.5 GRAM/300 ML BAG 1.5 GM in Premix Bag 1 BAG IVPB SCH (11:00)
[2020-12-26 11:14] LABS: ALT (SGPT) 18 U/L (8-55); AST (SGOT) 38 U/L (5-34); Albumin 3.6 g/dL (3.5-5.0); Alkaline Phosphatase 33 U/L (40-110); Anion Gap 18 mmol/L (10-20); BUN (Urea Nitrogen) 33 mg/dL (8.4-25.7); Bilirubin, Total 0.2 mg/dL (0.2-1.2); Calc. Creatinine Clearance 0 mL/min (70-130); Calcium 9.2 mg/dL (7.8-10.44); Carbon Dioxide 14 mmol/L (22-29); Chloride 99 mmol/L (98-107); Globulin 4.7 g/dL (2.4-3.5); Glucose 615 mg/dL (70-105); Potassium 5.8 mmol/L (3.5-5.1); Protein, Total 8.3 g/dL (6.0-8.3); Sodium 125 mmol/L (136-145)
[2020-12-26 12:11] LABS: Actual Bicarbonate (HCO3v) 19 mEq/L (22-28); Analyzer IN Cardio ER; Base Excess -6.4 mEq/L (-2.0 to +3.0); Calcium, Ionized (venous) 1.17 mmol/L (1.16-1.32); Chloride (VBG) 102 mmol/L (98-106); Hemoglobin (Hb) 12.3 g/dL (13.1-17.2); Potassium (VBG) 5.16 mmol/L (3.70-5.30); Sodium 128.4 mmol/L (133-146); pH (venous) 7.35 (7.32-7.43)
[2020-12-26] MEDS ORDERED: Vancomycin HCl 1.5 GM in Sodium Chloride 0.9% 250 ML 250 ML IVPB SCH (13:15)
[2020-12-26] MEDS ORDERED: Vancomycin HCl 1.5 GM in Sodium Chloride 0.9% 250 ML 300 ML IVPB SCH (13:15)
[2020-12-26] MEDS ORDERED: Calcium Carbonate 500 MG ChewTAB PO PRN (15:48)
[2020-12-26] MEDS ORDERED: Dextrose 50% Abboject 50 ML SYRINGE SLOW IVP PRN (15:48)
[2020-12-26] MEDS ORDERED: Ondansetron ODT 4 MG TAB PO PRN (15:48)
[2020-12-26] MEDS ORDERED: Dextrose 5% in Water 1,000 ML IV PRN (15:48)
[2020-12-26 17:12] LABS: Bacteria/HPF None Seen HPF (None Seen); Bilirubin Negative (Negative); Blood, Urine 1+ (Negative); Clarity Clear (Clear); Glucose, Urine (Dipstick) Greater than 1000 mg/dL (Negative); Ketone, Urine Negative (Negative); Leukocyte Negative Leu/uL (Negative); Nitrite Negative (Negative); Protein, Urine (Dipstick) 50 mg/dL (Neg-Trace); RBC/HPF 0-3 HPF (0-3); Specific Gravity, Urine 1.018 (1.002-1.036); Squamous Epithelial None Seen HPF (0-3); Urobilinogen Normal mg/dL (Less than 2); WBC/HPF 0-3 HPF (0-3); pH, Urine 6.5 (5.0-9.0)
[2020-12-26 17:15] LABS: Anion Gap 15 mmol/L (10-20); BUN (Urea Nitrogen) 29 mg/dL (8.4-25.7); Calc. Creatinine Clearance 36 mL/min (70-130); Calcium 8.7 mg/dL (7.8-10.44); Carbon Dioxide 14 mmol/L (22-29); Chloride 105 mmol/L (98-107); Glucose 397 mg/dL (70-105); Magnesium 1.8 mg/dL (1.6-2.6); Potassium 4.3 mmol/L (3.5-5.1); Sodium 130 mmol/L (136-145)
[2020-12-26 17:22] LABS: Urine Culture Reflex No No
[2020-12-26] MEDS: Lactated Ringer's 1,000 ML IV SCH (17:22)
[2020-12-26] MEDS: HumaLOG 300 UNITS/3 ML VIAL SC PRN ×2 (18:21→21:32)
[2020-12-26] MEDS: Rosuvastatin 20 MG TAB PO SCH (20:31)
[2020-12-26] MEDS: Midodrine HCl 5 MG TAB PO SCH (20:31)
[2020-12-26] MEDS: Gabapentin 300 MG CAP PO SCH (20:31)
[2020-12-26] MEDS: Fenofibrate Nanocrystallized 145 MG TAB PO SCH (20:31)
[2020-12-26] MEDS: Acetaminophen 325 MG TAB PO PRN (20:41)
[2020-12-26] MEDS ORDERED: Heparin 5,000 UNITS/ML VIAL SC SCH (21:00)
[2020-12-26] MEDS: Lantus 1000 UNITS/10 ML VIAL SC SCH (21:33)
[2020-12-26] MEDS: CEFEPIME HCL IN DEXTROSE 5 % 1 GM in Premix Bag 1 BAG IVPB SCH (23:36)
[2020-12-27] MEDS: Lactated Ringer's 1,000 ML IV SCH ×3 (01:30→23:54)
[2020-12-27 05:27] LABS: Hemoglobin 11.3 g/dL (14.0-18.0); Mean Corpuscular HGB CONC 33.1 g/dL (32.0-36.0); Mean Corpuscular Hemoglobin 26.1 pg (27.0-31.0); Mean Corpuscular Volume 78.8 fL (78.0-98.0); Mean Platelet Volume 7.8 fL (7.4-10.4); Platelet Count 286 thou/uL (130-400); RBC Distribution Width 13.4 % (11.5-14.5); Red Blood Cell (RBC) Count 4.34 mill/uL (4.70-6.10); White Blood Cell (WBC) Count 6.4 thou/uL (4.8-10.8)
[2020-12-27 05:35] LABS: Anion Gap 14 mmol/L (10-20); BUN (Urea Nitrogen) 25 mg/dL (8.4-25.7); Calc. Creatinine Clearance 44 mL/min (70-130); Carbon Dioxide 18 mmol/L (22-29); Chloride 107 mmol/L (98-107); Glucose 139 mg/dL (70-105); Sodium 135 mmol/L (136-145)
[2020-12-27 05:45] LABS: Band 2 % (5-11); Eosinophils 3 % (0-10); Lymphocytes 39 % (21-51); MDiff Complete? YES; Monocytes 5 % (0-10); Neutrophil 50 % (42-75)
[2020-12-27] MEDS ORDERED: Lantus 1000 UNITS/10 ML VIAL SC SCH (09:00)
[2020-12-27] MEDS: Gabapentin 300 MG CAP PO SCH ×2 (09:23→20:19)
[2020-12-27] MEDS: Carvedilol 3.125 MG TAB PO SCH (09:23)
[2020-12-27] MEDS: Aspirin 81 mg Enteric Coated Tablet PO SCH (09:23)
[2020-12-27] MEDS: Midodrine HCl 5 MG TAB PO SCH ×2 (09:23→20:19)
[2020-12-27] MEDS: HumaLOG 300 UNITS/3 ML VIAL SC PRN ×2 (12:21→21:37)
[2020-12-27] MEDS: CEFEPIME HCL IN DEXTROSE 5 % 1 GM in Premix Bag 1 BAG IVPB SCH ×2 (12:21→23:54)
[2020-12-27 12:42] LABS: Vancomycin, Random 6.1 ug/mL (See Comment)
[2020-12-27] MEDS ORDERED: Vancomycin HCl 1 GM in Premix Bag 1 BAG IVPB SCH (13:00)
[2020-12-27] MEDS: Heparin 5,000 UNITS/ML VIAL SC SCH (16:56)
[2020-12-27] MEDS: VANCOMYCIN 1.25 GM/250 ML BAG 1.25 GM in Premix Bag 1 BAG IVPB SCH (17:28)
[2020-12-27] MEDS ORDERED: Insulin Regular 300 UNITS/3 ML VIAL IVP SCH (18:15)
[2020-12-27] MEDS: Fenofibrate Nanocrystallized 145 MG TAB PO SCH (20:19)
[2020-12-27] MEDS: Rosuvastatin 20 MG TAB PO SCH (20:20)
[2020-12-27] MEDS: Lantus 1000 UNITS/10 ML VIAL SC SCH (21:36)
[2020-12-28] MEDS: Acetaminophen 325 MG TAB PO PRN (00:43)
[2020-12-28] MEDS ORDERED: Insulin Regular 300 UNITS/3 ML VIAL IVP SCH (01:15)
[2020-12-28 02:17] LABS: Troponin I 0.012 ng/mL (< 0.028)
[2020-12-28 04:44] LABS: Mean Corpuscular Hemoglobin 26.7 pg (27.0-31.0); Mean Corpuscular Volume 80.8 fL (78.0-98.0); Mean Platelet Volume 7.7 fL (7.4-10.4); Platelet Count 283 thou/uL (130-400); RBC Distribution Width 13.2 % (11.5-14.5); Red Blood Cell (RBC) Count 4.13 mill/uL (4.70-6.10); White Blood Cell (WBC) Count 6.1 thou/uL (4.8-10.8)
[2020-12-28 04:53] LABS: Anion Gap 13 mmol/L (10-20); BUN (Urea Nitrogen) 23 mg/dL (8.4-25.7); Calc. Creatinine Clearance 41 mL/min (70-130); Carbon Dioxide 20 mmol/L (22-29); Chloride 103 mmol/L (98-107); Glucose 279 mg/dL (70-105); Potassium 4.1 mmol/L (3.5-5.1); Sodium 132 mmol/L (136-145)
[2020-12-28 05:05] LABS: Band 3 % (5-11); Eosinophils 3 % (0-10); Lymphocytes 38 % (21-51); MDiff Complete? YES; Monocytes 3 % (0-10); Neutrophil 53 % (42-75)
[2020-12-28] MEDS: Gabapentin 300 MG CAP PO SCH ×2 (09:10→21:54)
[2020-12-28] MEDS: Midodrine HCl 5 MG TAB PO SCH ×2 (09:10→21:58)
[2020-12-28] MEDS: Carvedilol 3.125 MG TAB PO SCH (09:11)
[2020-12-28] MEDS: Lactated Ringer's 1,000 ML IV SCH ×2 (09:20→21:51)
[2020-12-28] MEDS: CEFEPIME HCL IN DEXTROSE 5 % 1 GM in Premix Bag 1 BAG IVPB SCH ×2 (10:15→11:11)
[2020-12-28] MEDS: VANCOMYCIN 1.25 GM/250 ML BAG 1.25 GM in Premix Bag 1 BAG IVPB SCH (14:46)
[2020-12-28] MEDS ORDERED: Fentanyl 100 MCG/2 ML VIAL ONE (16:53)
[2020-12-28] MEDS ORDERED: PHENYLEPHRINE-NS 100 MCG/ML 10 ML SYRINGE ONE (17:09)
[2020-12-28] MEDS ORDERED: Ondansetron PF 4 MG/2 ML Vial ONE (17:09)
[2020-12-28] MEDS ORDERED: PROPOFOL 200 MG/20 ML VIAL ONE (17:09)
[2020-12-28] MEDS ORDERED: Lidocaine 1% PF 5 ML VIAL ONE (17:09)
[2020-12-28] MEDS ORDERED: ePHEDrine Sulfate 50 MG/10 ML VIAL ONE (17:09)
[2020-12-28] MEDS ORDERED: Promethazine HCl 25 MG/ML VIAL IM PRN (17:49)
[2020-12-28] MEDS ORDERED: Promethazine HCl 25 MG/ML VIAL IVPB PRN (17:49)
[2020-12-28] MEDS ORDERED: Ondansetron HCl/PF 4 MG/2 ML Vial IVP PRN (17:49)
[2020-12-28] MEDS ORDERED: traMADol HCl 50 MG TAB PO PRN (18:24)
[2020-12-28] MEDS ORDERED: Piperacillin/Tazobactam 3.375 GM in Sodium Chloride 0.9% 100 ML IVPB SCH (18:30)
[2020-12-28] MEDS: Fenofibrate Nanocrystallized 145 MG TAB PO SCH (21:54)
[2020-12-28] MEDS: Rosuvastatin 20 MG TAB PO SCH (21:57)
[2020-12-28] MEDS: Heparin 5,000 UNITS/ML VIAL SC SCH (21:58)
[2020-12-28] MEDS: HumaLOG 300 UNITS/3 ML VIAL SC PRN (22:11)
[2020-12-28] MEDS: Lantus 1000 UNITS/10 ML VIAL SC SCH (22:12)
[2020-12-28] MEDS: Piperacillin/Tazobactam 3.375 GM in Sodium Chloride 0.9% 100 ML IVPB SCH (23:08)
[2020-12-28] MEDS ORDERED: Piperacillin/Tazobactam 4.5 GM in Sodium Chloride 0.9% 100 ML IVPB SCH (23:59)
[2020-12-29] MEDS: Lactated Ringer's 1,000 ML IV SCH (02:54)
[2020-12-29 05:11] LABS: Band 1 % (5-11); Eosinophils 1 % (0-10); Hemoglobin 11.7 g/dL (14.0-18.0); Hypochromia SLIGHT = 6-15 cells (100X) (0-5/hpf); Lymphocytes 45 % (21-51); MDiff Complete? YES; Mean Corpuscular HGB CONC 34.9 g/dL (32.0-36.0); Mean Corpuscular Volume 80.3 fL (78.0-98.0); Mean Platelet Volume 7.9 fL (7.4-10.4); Monocytes 4 % (0-10); Neutrophil 46 % (42-75); Platelet Count 286 thou/uL (130-400); Platelet Morphology Comment Appears Adequate; RBC Distribution Width 13.3 % (11.5-14.5); Reactive Lymphocytes 3 % (0-10); Red Blood Cell (RBC) Count 4.19 mill/uL (4.70-6.10); White Blood Cell (WBC) Count 7.5 thou/uL (4.8-10.8)
[2020-12-29 05:13] LABS: Anion Gap 12 mmol/L (10-20); BUN (Urea Nitrogen) 20 mg/dL (8.4-25.7); Calc. Creatinine Clearance 41 mL/min (70-130); Calcium 9.5 mg/dL (7.8-10.44); Carbon Dioxide 23 mmol/L (22-29); Chloride 101 mmol/L (98-107); Glucose 235 mg/dL (70-105); Potassium 4.1 mmol/L (3.5-5.1); Sodium 132 mmol/L (136-145)
[2020-12-29] MEDS: Piperacillin/Tazobactam 3.375 GM in Sodium Chloride 0.9% 100 ML IVPB SCH ×2 (05:36→17:12)
[2020-12-29] MEDS: HumaLOG 300 UNITS/3 ML VIAL SC PRN ×4 (06:00→20:43)
[2020-12-29] MEDS ORDERED: Heparin 5,000 UNITS/ML VIAL SC SCH (09:00)
[2020-12-29] MEDS: Aspirin 81 mg Enteric Coated Tablet PO SCH (10:10)
[2020-12-29] MEDS: Midodrine HCl 5 MG TAB PO SCH ×2 (10:10→20:42)
[2020-12-29] MEDS: Gabapentin 300 MG CAP PO SCH ×2 (10:11→20:42)
[2020-12-29] MEDS: Carvedilol 3.125 MG TAB PO SCH (10:11)
[2020-12-29] MEDS: Lantus 1000 UNITS/10 ML VIAL SC SCH ×2 (10:12→20:42)
[2020-12-29 13:27] LABS: Vancomycin, Trough 17.2 ug/mL
[2020-12-29] MEDS: VANCOMYCIN 1.25 GM/250 ML BAG 1.25 GM in Premix Bag 1 BAG IVPB SCH (15:04)
[2020-12-29] MEDS: Rosuvastatin 20 MG TAB PO SCH (20:41)
[2020-12-29] MEDS: Fenofibrate Nanocrystallized 145 MG TAB PO SCH (20:42)
[2020-12-30] MEDS: Piperacillin/Tazobactam 3.375 GM in Sodium Chloride 0.9% 100 ML IVPB SCH ×4 (00:09→23:47)
[2020-12-30 05:00] LABS: Mean Corpuscular Volume 81.2 fL (78.0-98.0)
[2020-12-30 05:09] LABS: Anion Gap 12 mmol/L (10-20); BUN (Urea Nitrogen) 20 mg/dL (8.4-25.7); Calc. Creatinine Clearance 36 mL/min (70-130); Calcium 9.3 mg/dL (7.8-10.44); Carbon Dioxide 22 mmol/L (22-29); Chloride 103 mmol/L (98-107); Glucose 159 mg/dL (70-105); Potassium 4.1 mmol/L (3.5-5.1); Sodium 133 mmol/L (136-145)
[2020-12-30 05:19] LABS: Band 2 % (5-11); Eosinophils 2 % (0-10); Hemoglobin 11.6 g/dL (14.0-18.0); Lymphocytes 31 % (21-51); MDiff Complete? YES; Mean Corpuscular HGB CONC 32.1 g/dL (32.0-36.0); Mean Corpuscular Hemoglobin 26.1 pg (27.0-31.0); Mean Platelet Volume 7.7 fL (7.4-10.4); Monocytes 7 % (0-10); Neutrophil 55 % (42-75); Platelet Count 300 thou/uL (130-400); Platelet Morphology Comment Appears Adequate; RBC Distribution Width 13.3 % (11.5-14.5); Red Blood Cell (RBC) Count 4.44 mill/uL (4.70-6.10); White Blood Cell (WBC) Count 6.6 thou/uL (4.8-10.8)
[2020-12-30] MEDS: Aspirin 81 mg Enteric Coated Tablet PO SCH (08:47)
[2020-12-30] MEDS: Midodrine HCl 5 MG TAB PO SCH ×2 (08:47→21:20)
[2020-12-30] MEDS: Gabapentin 300 MG CAP PO SCH ×2 (08:47→21:18)
[2020-12-30] MEDS: Carvedilol 3.125 MG TAB PO SCH (08:47)
[2020-12-30] MEDS: Lantus 1000 UNITS/10 ML VIAL SC SCH ×3 (08:49→21:18)
[2020-12-30] MEDS ORDERED: Lantus 1000 UNITS/10 ML VIAL SC SCH (09:30)
[2020-12-30] MEDS: VANCOMYCIN 1.25 GM/250 ML BAG 1.25 GM in Premix Bag 1 BAG IVPB SCH (14:33)
[2020-12-30] MEDS: HumaLOG 300 UNITS/3 ML VIAL SC PRN ×2 (19:32→21:17)
[2020-12-30] MEDS: Rosuvastatin 20 MG TAB PO SCH (21:19)
[2020-12-30] MEDS: Fenofibrate Nanocrystallized 145 MG TAB PO SCH (21:20)
[2020-12-31 05:29] LABS: Eosinophils 6 % (0-10); Hemoglobin 11.6 g/dL (14.0-18.0); Lymphocytes 39 % (21-51); MDiff Complete? YES; Mean Corpuscular HGB CONC 32.3 g/dL (32.0-36.0); Mean Corpuscular Hemoglobin 26.2 pg (27.0-31.0); Mean Platelet Volume 7.7 fL (7.4-10.4); Monocytes 4 % (0-10); Neutrophil 51 % (42-75); Platelet Count 302 thou/uL (130-400); Platelet Morphology Comment Appears Adequate; RBC Distribution Width 13.3 % (11.5-14.5); Red Blood Cell (RBC) Count 4.43 mill/uL (4.70-6.10); White Blood Cell (WBC) Count 5.6 thou/uL (4.8-10.8)
[2020-12-31 05:39] LABS: Anion Gap 13 mmol/L (10-20); BUN (Urea Nitrogen) 20 mg/dL (8.4-25.7); Calc. Creatinine Clearance 36 mL/min (70-130); Calcium 9.2 mg/dL (7.8-10.44); Carbon Dioxide 21 mmol/L (22-29); Chloride 102 mmol/L (98-107); Glucose 392 mg/dL (70-105); Sodium 132 mmol/L (136-145)
[2020-12-31] MEDS: Piperacillin/Tazobactam 3.375 GM in Sodium Chloride 0.9% 100 ML IVPB SCH ×3 (06:07→22:57)
[2020-12-31] MEDS: HumaLOG 300 UNITS/3 ML VIAL SC PRN ×4 (06:09→21:22)
[2020-12-31] MEDS ORDERED: Lantus 1000 UNITS/10 ML VIAL SC SCH (09:00)
[2020-12-31] MEDS: Midodrine HCl 5 MG TAB PO SCH ×2 (09:32→20:58)
[2020-12-31] MEDS: Carvedilol 3.125 MG TAB PO SCH (09:33)
[2020-12-31] MEDS: Aspirin 81 mg Enteric Coated Tablet PO SCH (09:33)
[2020-12-31] MEDS: Gabapentin 300 MG CAP PO SCH ×2 (09:33→20:57)
[2020-12-31] MEDS: Lantus 1000 UNITS/10 ML VIAL SC SCH ×2 (09:34→20:58)
[2020-12-31] MEDS: Lactated Ringer's 1,000 ML IV SCH ×2 (09:42→21:22)
[2020-12-31] MEDS: VANCOMYCIN 1.25 GM/250 ML BAG 1.25 GM in Premix Bag 1 BAG IVPB SCH (13:39)
[2020-12-31] MEDS: Rosuvastatin 20 MG TAB PO SCH (20:57)
[2020-12-31] MEDS: Fenofibrate Nanocrystallized 145 MG TAB PO SCH (20:57)
[2021-01-01] MEDS: Lantus 1000 UNITS/10 ML VIAL SC SCH ×2 (01:42→09:34)
[2021-01-01 05:08] LABS: Hemoglobin 11.4 g/dL (14.0-18.0); Lymphocytes 32 % (21-51); MDiff Complete? YES; Mean Corpuscular Volume 81.8 fL (78.0-98.0); Mean Platelet Volume 7.8 fL (7.4-10.4); Monocytes 3 % (0-10); Neutrophil 64 % (42-75); Platelet Count 330 thou/uL (130-400); Platelet Morphology Comment Appears Adequate; RBC Distribution Width 13.4 % (11.5-14.5); Reactive Lymphocytes 1 % (0-10); Red Blood Cell (RBC) Count 4.24 mill/uL (4.70-6.10); White Blood Cell (WBC) Count 7.8 thou/uL (4.8-10.8)
[2021-01-01] MEDS: Lactated Ringer's 1,000 ML IV SCH ×2 (05:09→16:16)
[2021-01-01 05:21] LABS: Anion Gap 13 mmol/L (10-20); BUN (Urea Nitrogen) 18 mg/dL (8.4-25.7); Calc. Creatinine Clearance 36 mL/min (70-130); Calcium 9.3 mg/dL (7.8-10.44); Carbon Dioxide 23 mmol/L (22-29); Chloride 105 mmol/L (98-107); Glucose 118 mg/dL (70-105); Potassium 4.7 mmol/L (3.5-5.1); Sodium 136 mmol/L (136-145)
[2021-01-01] MEDS: Piperacillin/Tazobactam 3.375 GM in Sodium Chloride 0.9% 100 ML IVPB SCH ×2 (06:14→16:17)
[2021-01-01] MEDS: Midodrine HCl 5 MG TAB PO SCH (09:35)
[2021-01-01] MEDS: Carvedilol 3.125 MG TAB PO SCH (09:35)
[2021-01-01] MEDS: Gabapentin 300 MG CAP PO SCH (09:36)
[2021-01-01] MEDS: Aspirin 81 mg Enteric Coated Tablet PO SCH (09:36)
[2021-01-01] MEDS: HumaLOG 300 UNITS/3 ML VIAL SC PRN (12:58)
[2021-01-01 13:14] VITALS: BP 153/77; TEMP 98.1
[2021-01-01 13:23] VITALS: BMI 26.2
[2021-01-01] MEDS: VANCOMYCIN 1.25 GM/250 ML BAG 1.25 GM in Premix Bag 1 BAG IVPB SCH (16:17)
== END 2021-01-01 16:07 | disposition home health service (06) | DRG 617 ==
LOC: ERS 09:55 → ERHOLD 11:33 → 2NO 15:46
PROVIDERS: ADMIT Student in an Organized Health Care Education/Training Program; ATTEND Student in an Organized Health Care Education/Training Program
PROC: 0Y6N0ZF Detachment at Left Foot, Partial 5th Ray, Open Approach (ICD-10-PCS; principal; 2020-12-28)
DX: E11.69 Type 2 diabetes mellitus with other specified complication (principal); M86.8X7 Other osteomyelitis, ankle and foot; I50.22 Chronic systolic (congestive) heart failure; I13.0 Hypertensive heart and chronic kidney disease with heart failure and stage 1 through stage 4 chronic kidney disease, or unspecified chronic kidney disease; L03.116 Cellulitis of left lower limb; E87.5 Hyperkalemia; N17.9 Acute kidney failure, unspecified; N18.30 Chronic kidney disease, stage 3 unspecified; E78.5 Hyperlipidemia, unspecified; I25.10 Atherosclerotic heart disease of native coronary artery without angina pectoris; J44.9 Chronic obstructive pulmonary disease, unspecified; E11.65 Type 2 diabetes mellitus with hyperglycemia; E11.22 Type 2 diabetes mellitus with diabetic chronic kidney disease; E11.621 Type 2 diabetes mellitus with foot ulcer; L97.529 Non-pressure chronic ulcer of other part of left foot with unspecified severity; E11.40 Type 2 diabetes mellitus with diabetic neuropathy, unspecified; R30.0 Dysuria; R19.7 Diarrhea, unspecified; Z95.810 Presence of automatic (implantable) cardiac defibrillator; Z89.432 Acquired absence of left foot; I25.2 Old myocardial infarction; Z90.49 Acquired absence of other specified parts of digestive tract; Z79.899 Other long term (current) drug therapy; Z79.4 Long term (current) use of insulin; Z79.82 Long term (current) use of aspirin; Z87.891 Personal history of nicotine dependence
CPT/HCPCS: 36415; 36416; 80048; 80053; 80202; 81001; 82010; 82805; 83605; 83735; 84484; 85007; 85025; 85027; 85652; 86140; 87040; 87149; 88305; 88311; 93005; 93010; J0692; J1644; J1815; J2405; J2543; J2704; J3010; J3370; J3490

== ENCOUNTER 2021-01-09 15:00 | Emergency (ER) | payer MEDICARE, MEDICAID | END 2021-01-09 17:22 | disposition home or self-care (01) | LOC: ERS 15:00 | DX: Z48.00 Encounter for change or removal of nonsurgical wound dressing (principal); I25.10 Atherosclerotic heart disease of native coronary artery without angina pectoris; I25.2 Old myocardial infarction; E78.5 Hyperlipidemia, unspecified; E11.9 Type 2 diabetes mellitus without complications; I10 Essential (primary) hypertension; J44.9 Chronic obstructive pulmonary disease, unspecified; Z79.4 Long term (current) use of insulin; Z79.82 Long term (current) use of aspirin; Z79.899 Other long term (current) drug therapy | CPT/HCPCS: 99282 ==

== ENCOUNTER 2021-01-12 14:07 | Observation (INO) | payer MEDICARE, MEDICAID ==
[2021-01-12 14:39] LABS: #Basophils 0.1 thou/uL (0.0-0.2); #Eosinphils 0.2 thou/uL (0.0-0.7); #Lymphocytes 2.2 thou/uL (1.20-3.40); #Monocytes 0.4 thou/uL (0.11-0.59); #Neutrophils 5.2 thou/uL (1.40-6.50); %Basophils 0.9 % (0.0-1.0); %Eosinophils 2.4 % (0.0-10.0); %Lymphocytes 27.4 % (21.0-51.0); %Monocytes 5.2 % (0.0-10.0); %Neutrophils 64.1 % (42.0-75.0); Hemoglobin 11.2 g/dL (14.0-18.0); Mean Corpuscular HGB CONC 32.9 g/dL (32.0-36.0); Mean Corpuscular Hemoglobin 26.1 pg (27.0-31.0); Mean Corpuscular Volume 79.3 fL (78.0-98.0); Mean Platelet Volume 8.5 fL (7.4-10.4); Platelet Count 308 thou/uL (130-400); RBC Distribution Width 13.6 % (11.5-14.5); Red Blood Cell (RBC) Count 4.29 mill/uL (4.70-6.10)
[2021-01-12 14:59] LABS: ALT (SGPT) 19 U/L (8-55); AST (SGOT) 21 U/L (5-34); Albumin 3.7 g/dL (3.5-5.0); Alkaline Phosphatase 34 U/L (40-110); Anion Gap 13 mmol/L (10-20); BUN (Urea Nitrogen) 42 mg/dL (8.4-25.7); Bilirubin, Total 0.4 mg/dL (0.2-1.2); Calc. Creatinine Clearance 0 mL/min (70-130); Calcium 8.7 mg/dL (7.8-10.44); Carbon Dioxide 19 mmol/L (22-29); Chloride 104 mmol/L (98-107); Globulin 3.4 g/dL (2.4-3.5); Glucose 378 mg/dL (70-105); Lipase 66 U/L (8-78); Potassium 6.1 mmol/L (3.5-5.1); Protein, Total 7.1 g/dL (6.0-8.3); Sodium 130 mmol/L (136-145)
[2021-01-12] MEDS ORDERED: Acetaminophen 325 MG TAB PO PRN (16:51)
[2021-01-12] MEDS ORDERED: Calcium Carbonate 500 MG ChewTAB PO PRN (16:51)
[2021-01-12] MEDS ORDERED: Ondansetron ODT 4 MG TAB PO PRN (16:51)
[2021-01-12] MEDS ORDERED: Bisacodyl 5 MG TAB PO PRN (16:51)
[2021-01-12] MEDS ORDERED: Nitroglycerin 0.4 MG TAB (25 Tab Bottle) SL PRN (16:51)
[2021-01-12 17:09] LABS: Actual Bicarbonate (HCO3v) 18 mEq/L (22-28); Analyzer IN Cardio ER; Calcium, Ionized (venous) 1.03 mmol/L (1.16-1.32); Chloride (VBG) 108 mmol/L (98-106); Hemoglobin (Hb) 12.6 g/dL (13.1-17.2); Potassium (VBG) 5.48 mmol/L (3.70-5.30); Sodium 132.5 mmol/L (133-146)
[2021-01-12] MEDS ORDERED: Aspirin Chewable 81 MG TAB PO SCH (17:15)
[2021-01-12] MEDS ORDERED: HumaLOG 300 UNITS/3 ML VIAL SC PRN ×2 (17:18)
[2021-01-12] MEDS ORDERED: Dextrose 50% Abboject 50 ML SYRINGE SLOW IVP PRN (17:18)
[2021-01-12] MEDS ORDERED: Dextrose 5% in Water 1,000 ML IV PRN (17:18)
[2021-01-12 18:01] LABS: Hemoglobin A1c 12.9 % (4.0-6.0)
[2021-01-12 18:09] LABS: Anion Gap 13 mmol/L (10-20); BUN (Urea Nitrogen) 40 mg/dL (8.4-25.7); Calc. Creatinine Clearance 0 mL/min (70-130); Calcium 8.7 mg/dL (7.8-10.44); Carbon Dioxide 16 mmol/L (22-29); Chloride 109 mmol/L (98-107); Glucose 253 mg/dL (70-105); Sodium 133 mmol/L (136-145)
[2021-01-12 18:16] LABS: Troponin I 0.012 ng/mL (< 0.028)
[2021-01-12 19:50] VITALS: BMI 27.7
[2021-01-12] MEDS: Heparin 5,000 UNITS/ML VIAL SC SCH (20:12)
[2021-01-12] MEDS: Gabapentin 300 MG CAP PO SCH (20:12)
[2021-01-12] MEDS ORDERED: Fenofibrate Nanocrystallized 145 MG TAB PO SCH (21:00)
[2021-01-12] MEDS ORDERED: Non-Formulary Item 1 EACH (Midodrine Hcl [Midodrine Hcl] 10 MG Tablet) PO SCH (21:00)
[2021-01-12] MEDS ORDERED: CLINDAMYCIN HCL 300 MG PO SCH (21:00)
[2021-01-12] MEDS ORDERED: Rosuvastatin 20 MG TAB PO SCH (21:00)
[2021-01-12] MEDS ORDERED: Lantus 1000 UNITS/10 ML VIAL SC SCH (21:00)
[2021-01-12] MEDS ORDERED: Carvedilol 3.125 MG TAB PO SCH (21:00)
[2021-01-12 21:29] LABS: Troponin I Less than 0.010 ng/mL (< 0.028)
[2021-01-13 04:50] LABS: #Basophils 0.1 thou/uL (0.0-0.2); #Eosinphils 0.2 thou/uL (0.0-0.7); #Lymphocytes 2.2 thou/uL (1.20-3.40); #Monocytes 0.4 thou/uL (0.11-0.59); #Neutrophils 3.8 thou/uL (1.40-6.50); %Basophils 1.4 % (0.0-1.0); %Eosinophils 2.5 % (0.0-10.0); %Lymphocytes 32.8 % (21.0-51.0); %Monocytes 6.2 % (0.0-10.0); %Neutrophils 57.1 % (42.0-75.0); Hemoglobin 10.4 g/dL (14.0-18.0); Mean Corpuscular HGB CONC 32.5 g/dL (32.0-36.0); Mean Corpuscular Hemoglobin 25.8 pg (27.0-31.0); Mean Corpuscular Volume 79.5 fL (78.0-98.0); Mean Platelet Volume 8.5 fL (7.4-10.4); Platelet Count 303 thou/uL (130-400); RBC Distribution Width 13.6 % (11.5-14.5); Red Blood Cell (RBC) Count 4.01 mill/uL (4.70-6.10); White Blood Cell (WBC) Count 6.7 thou/uL (4.8-10.8)
[2021-01-13 05:10] LABS: Anion Gap 10 mmol/L (10-20); BUN (Urea Nitrogen) 42 mg/dL (8.4-25.7); Calc. Creatinine Clearance 28 mL/min (70-130); Calcium 8.7 mg/dL (7.8-10.44); Carbon Dioxide 20 mmol/L (22-29); Chloride 109 mmol/L (98-107); Cholesterol 91 mg/dl (< 200 Desired); Glucose 249 mg/dL (70-105); HDL Cholesterol 23 mg/dL (>60 Neg Risk); LDL Cholesterol, Calculated 36 mg/dL; Potassium 4.6 mmol/L (3.5-5.1); Sodium 134 mmol/L (136-145); Triglycerides 161 mg/dL (Less than 150)
[2021-01-13] MEDS ORDERED: Aspirin Chewable 81 MG TAB PO SCH (09:00)
[2021-01-13] MEDS ORDERED: Icosapent Ethyl 1 GM CAPSULE PO SCH (09:00)
[2021-01-13] MEDS ORDERED: Lantus 1000 UNITS/10 ML VIAL SC SCH (09:00)
[2021-01-13] MEDS ORDERED: Midodrine HCl 5 MG TAB PO SCH (09:00)
[2021-01-13] MEDS ORDERED: Carvedilol 3.125 MG TAB PO SCH ×2 (09:00)
[2021-01-13] MEDS ORDERED: Regadenoson 0.4 MG/5 ML SYRINGE ONE (09:08)
[2021-01-13 12:31] VITALS: TEMP 97.5
[2021-01-13] MEDS: Gabapentin 300 MG CAP PO SCH (12:32)
[2021-01-13] MEDS: Heparin 5,000 UNITS/ML VIAL SC SCH ×2 (12:34→15:53)
[2021-01-13 14:41] LABS: SARS-CoV-2 PCR by NAA Not Detected (NotDetected)
[2021-01-13 16:17] VITALS: BP 130/79
== END 2021-01-13 17:39 | disposition home or self-care (01) ==
LOC: ERS 14:07 → ERHOLD 16:51 → INTOOBSV 16:51 → 2NO 19:37
PROVIDERS: ADMIT Family Medicine; ATTEND Family Medicine
DX: I25.119 Atherosclerotic heart disease of native coronary artery with unspecified angina pectoris (principal); I13.0 Hypertensive heart and chronic kidney disease with heart failure and stage 1 through stage 4 chronic kidney disease, or unspecified chronic kidney disease; E11.22 Type 2 diabetes mellitus with diabetic chronic kidney disease; N18.30 Chronic kidney disease, stage 3 unspecified; I50.20 Unspecified systolic (congestive) heart failure; J44.9 Chronic obstructive pulmonary disease, unspecified; I95.9 Hypotension, unspecified; E78.5 Hyperlipidemia, unspecified; I25.2 Old myocardial infarction; Z87.891 Personal history of nicotine dependence; Z79.4 Long term (current) use of insulin; Z79.82 Long term (current) use of aspirin; Z79.899 Other long term (current) drug therapy; Z95.1 Presence of aortocoronary bypass graft; Z95.810 Presence of automatic (implantable) cardiac defibrillator; Z89.421 Acquired absence of other right toe(s); Z89.422 Acquired absence of other left toe(s); Z20.822 Contact with and (suspected) exposure to COVID-19
CPT/HCPCS: 71045; 78452; 80048 ×2; 80061; 82805; 82962 ×2; 83036; 83690; 83735; 83880; 84484 ×2; 85025; 85379; 93005; 93017; 97139; A9500; U0003; U0005; 36415; 36416; 80053; 84443; J1644; J1815; J2785

== ENCOUNTER 2021-01-18 12:00 | Observation (INO) | payer MEDICARE, MEDICAID ==
[2021-01-18 12:49] LABS: #Basophils 0.1 thou/uL (0.0-0.2); #Eosinphils 0.2 thou/uL (0.0-0.7); #Lymphocytes 1.9 thou/uL (1.20-3.40); #Monocytes 0.5 thou/uL (0.11-0.59); #Neutrophils 4.4 thou/uL (1.40-6.50); %Eosinophils 2.9 % (0.0-10.0); %Lymphocytes 27.5 % (21.0-51.0); %Monocytes 6.7 % (0.0-10.0); %Neutrophils 61.9 % (42.0-75.0); Hemoglobin 11.5 g/dL (14.0-18.0); Mean Corpuscular HGB CONC 33.6 g/dL (32.0-36.0); Mean Corpuscular Hemoglobin 26.4 pg (27.0-31.0); Mean Corpuscular Volume 78.5 fL (78.0-98.0); Mean Platelet Volume 8.3 fL (7.4-10.4); Platelet Count 337 thou/uL (130-400); Red Blood Cell (RBC) Count 4.36 mill/uL (4.70-6.10)
[2021-01-18 13:06] LABS: ALT (SGPT) 21 U/L (8-55); AST (SGOT) 24 U/L (5-34); Albumin 3.8 g/dL (3.5-5.0); Alkaline Phosphatase 31 U/L (40-110); Anion Gap 12 mmol/L (10-20); BUN (Urea Nitrogen) 47 mg/dL (8.4-25.7); Bilirubin, Total 0.4 mg/dL (0.2-1.2); Calc. Creatinine Clearance 0 mL/min (70-130); Calcium 10.1 mg/dL (7.8-10.44); Carbon Dioxide 22 mmol/L (22-29); Chloride 103 mmol/L (98-107); Globulin 3.8 g/dL (2.4-3.5); Glucose 326 mg/dL (70-105); Potassium 5.1 mmol/L (3.5-5.1); Protein, Total 7.6 g/dL (6.0-8.3); Sodium 132 mmol/L (136-145)
[2021-01-18] MEDS ORDERED: HumaLOG 300 UNITS/3 ML VIAL SC PRN ×2 (16:22)
[2021-01-18] MEDS ORDERED: Acetaminophen 325 MG TAB PO PRN (16:22)
[2021-01-18] MEDS ORDERED: Dextrose 5% in Water 1,000 ML IV PRN (16:22)
[2021-01-18] MEDS ORDERED: Lorazepam 2 MG/ML VIAL SLOW IVP PRN (16:22)
[2021-01-18] MEDS ORDERED: Dextrose 50% Abboject 50 ML SYRINGE SLOW IVP PRN (16:22)
[2021-01-18 17:27] LABS: Glucose 191 mg/dL (70-105)
[2021-01-18 17:33] LABS: Cardiac Risk 3.2 (Less than 4.5)
[2021-01-18] MEDS ORDERED: Lantus 1000 UNITS/10 ML VIAL SC SCH (21:00)
[2021-01-18 21:48] LABS: Glucose 242 mg/dL (70-105)
[2021-01-18] MEDS: Heparin 5,000 UNITS/ML VIAL SC SCH (21:49)
[2021-01-19 00:13] LABS: Bacteria/HPF None Seen HPF (None Seen); Bilirubin Negative (Negative); Blood, Urine 1+ (Negative); Clarity Clear (Clear); Glucose, Urine (Dipstick) Greater than 1000 mg/dL (Negative); Ketone, Urine Negative (Negative); Leukocyte Negative Leu/uL (Negative); Nitrite Negative (Negative); Protein, Urine (Dipstick) 70 mg/dL (Neg-Trace); RBC/HPF 0-3 HPF (0-3); Specific Gravity, Urine 1.013 (1.002-1.036); Squamous Epithelial 0-3 HPF (0-3); Urobilinogen Normal mg/dL (Less than 2); WBC/HPF 0-3 HPF (0-3); pH, Urine 6.5 (5.0-9.0)
[2021-01-19 02:28] VITALS: BMI 27.4
[2021-01-19] MEDS ORDERED: HumaLOG 300 UNITS/3 ML VIAL SC PRN (03:38)
[2021-01-19 05:21] LABS: #Basophils 0.1 thou/uL (0.0-0.2); #Eosinphils 0.3 thou/uL (0.0-0.7); #Lymphocytes 2.7 thou/uL (1.20-3.40); #Monocytes 0.5 thou/uL (0.11-0.59); #Neutrophils 3.9 thou/uL (1.40-6.50); %Eosinophils 3.8 % (0.0-10.0); %Lymphocytes 36.1 % (21.0-51.0); %Monocytes 6.2 % (0.0-10.0); %Neutrophils 52.9 % (42.0-75.0); Mean Corpuscular HGB CONC 33.2 g/dL (32.0-36.0); Mean Corpuscular Hemoglobin 26.4 pg (27.0-31.0); Mean Corpuscular Volume 79.5 fL (78.0-98.0); Mean Platelet Volume 8.1 fL (7.4-10.4); Platelet Count 305 thou/uL (130-400); RBC Distribution Width 14.1 % (11.5-14.5); Red Blood Cell (RBC) Count 4.16 mill/uL (4.70-6.10); White Blood Cell (WBC) Count 7.4 thou/uL (4.8-10.8)
[2021-01-19 05:47] LABS: ALT (SGPT) 22 U/L (8-55); AST (SGOT) 29 U/L (5-34); Albumin 3.5 g/dL (3.5-5.0); Alkaline Phosphatase 27 U/L (40-110); Anion Gap 12 mmol/L (10-20); BUN (Urea Nitrogen) 39 mg/dL (8.4-25.7); Bilirubin, Total 0.4 mg/dL (0.2-1.2); Calc. Creatinine Clearance 28 mL/min (70-130); Calcium 9.4 mg/dL (7.8-10.44); Carbon Dioxide 23 mmol/L (22-29); Chloride 106 mmol/L (98-107); Globulin 3.7 g/dL (2.4-3.5); Glucose 127 mg/dL (70-105); Potassium 4.8 mmol/L (3.5-5.1); Protein, Total 7.2 g/dL (6.0-8.3); Sodium 136 mmol/L (136-145)
[2021-01-19] MEDS ORDERED: Icosapent Ethyl 1 GM CAPSULE PO SCH (08:00)
[2021-01-19 08:10] VITALS: TEMP 97.6
[2021-01-19] MEDS ORDERED: Non-Formulary Item 1 EACH (Midodrine Hcl [Midodrine Hcl] 10 MG Tablet) PO SCH (09:00)
[2021-01-19] MEDS ORDERED: Gabapentin 300 MG CAP PO SCH (09:00)
[2021-01-19] MEDS ORDERED: Midodrine HCl 5 MG TAB PO SCH (09:00)
[2021-01-19] MEDS ORDERED: Aspirin Chewable 81 MG TAB PO SCH (09:00)
[2021-01-19] MEDS ORDERED: Carvedilol 3.125 MG TAB PO SCH (09:00)
[2021-01-19] MEDS ORDERED: Insulin Glargine 65 UNITS in Pre-Filled Syringe 1 EACH SC SCH (09:00)
[2021-01-19] MEDS ORDERED: Lantus 1000 UNITS/10 ML VIAL SC SCH ×2 (09:00→21:00)
[2021-01-19] MEDS: Heparin 5,000 UNITS/ML VIAL SC SCH (10:28)
[2021-01-19 10:44] LABS: SARS-CoV-2 PCR by NAA Not Detected (NotDetected)
[2021-01-19 12:16] VITALS: BP 117/74
[2021-01-19] MEDS ORDERED: Atorvastatin Calcium 40 MG TAB PO SCH (21:00)
[2021-01-19] MEDS ORDERED: Fenofibrate Nanocrystallized 145 MG TAB PO SCH (21:00)
[2021-01-19] MEDS ORDERED: Rosuvastatin 10 MG TAB PO SCH (21:00)
== END 2021-01-19 15:30 | disposition home or self-care (01) ==
LOC: ERS 12:00 → ERHOLD 15:59 → 2SW 20:42
PROVIDERS: ADMIT Family Medicine; ATTEND Family Medicine
DX: I95.1 Orthostatic hypotension (principal); N17.9 Acute kidney failure, unspecified; I13.0 Hypertensive heart and chronic kidney disease with heart failure and stage 1 through stage 4 chronic kidney disease, or unspecified chronic kidney disease; E11.22 Type 2 diabetes mellitus with diabetic chronic kidney disease; N18.4 Chronic kidney disease, stage 4 (severe); I50.22 Chronic systolic (congestive) heart failure; D63.1 Anemia in chronic kidney disease; I25.2 Old myocardial infarction; I25.10 Atherosclerotic heart disease of native coronary artery without angina pectoris; I25.5 Ischemic cardiomyopathy; R79.89 Other specified abnormal findings of blood chemistry; E11.51 Type 2 diabetes mellitus with diabetic peripheral angiopathy without gangrene; E11.621 Type 2 diabetes mellitus with foot ulcer; L97.509 Non-pressure chronic ulcer of other part of unspecified foot with unspecified severity; E11.65 Type 2 diabetes mellitus with hyperglycemia; E78.5 Hyperlipidemia, unspecified; J44.9 Chronic obstructive pulmonary disease, unspecified; E87.5 Hyperkalemia; Z20.822 Contact with and (suspected) exposure to COVID-19; Z79.4 Long term (current) use of insulin; Z79.2 Long term (current) use of antibiotics; Z79.82 Long term (current) use of aspirin; Z79.899 Other long term (current) drug therapy; Z89.422 Acquired absence of other left toe(s); Z89.421 Acquired absence of other right toe(s); Z95.810 Presence of automatic (implantable) cardiac defibrillator; Z87.891 Personal history of nicotine dependence; Z91.14 Patient's other noncompliance with medication regimen; Z95.1 Presence of aortocoronary bypass graft
CPT/HCPCS: 70450; 71045; 80053; 80061; 81001; 82947; 82962 ×2; 83605; 83880; 84484; 85025; 85379; 87040; 93005; 97116; 97139 ×3; 99285; U0003; U0005; 36415; 36416; 84443; G0378; J1644

== ENCOUNTER 2021-03-23 19:52 | Emergency (ER) | payer MEDICARE, MEDICAID ==
[2021-03-23 21:18] LABS: #Basophils 0.1 thou/uL (0.0-0.2); #Eosinphils 0.2 thou/uL (0.0-0.7); #Lymphocytes 1.9 thou/uL (1.20-3.40); #Monocytes 0.3 thou/uL (0.11-0.59); #Neutrophils 3.2 thou/uL (1.40-6.50); %Basophils 1.1 % (0.0-1.0); %Eosinophils 3.1 % (0.0-10.0); %Lymphocytes 34.5 % (21.0-51.0); %Monocytes 5.4 % (0.0-10.0); Hemoglobin 12.3 g/dL (14.0-18.0); Mean Corpuscular HGB CONC 35.6 g/dL (32.0-36.0); Mean Corpuscular Hemoglobin 27.7 pg (27.0-31.0); Mean Corpuscular Volume 77.8 fL (78.0-98.0); Mean Platelet Volume 8.5 fL (7.4-10.4); Platelet Count 247 thou/uL (130-400); RBC Distribution Width 14.8 % (11.5-14.5); Red Blood Cell (RBC) Count 4.42 mill/uL (4.70-6.10); White Blood Cell (WBC) Count 5.6 thou/uL (4.8-10.8)
[2021-03-23 21:41] LABS: ALT (SGPT) 29 U/L (8-55); AST (SGOT) 24 U/L (5-34); Albumin 3.5 g/dL (3.5-5.0); Alkaline Phosphatase 38 U/L (40-110); Anion Gap 13 mmol/L (10-20); BUN (Urea Nitrogen) 33 mg/dL (8.4-25.7); Bilirubin, Total 0.2 mg/dL (0.2-1.2); Calc. Creatinine Clearance 0 mL/min (70-130); Calcium 8.7 mg/dL (7.8-10.44); Carbon Dioxide 20 mmol/L (22-29); Chloride 102 mmol/L (98-107); Globulin 3.6 g/dL (2.4-3.5); Glucose 497 mg/dL (70-105); Lipase 64 U/L (8-78); Potassium 4.5 mmol/L (3.5-5.1); Protein, Total 7.1 g/dL (6.0-8.3); Sodium 130 mmol/L (136-145)
[2021-03-23] MEDS ORDERED: Insulin Regular 300 UNITS/3 ML VIAL ONE (22:30)
== END 2021-03-23 23:30 | disposition home or self-care (01) ==
LOC: ERS 19:52
DX: K59.00 Constipation, unspecified (principal); E11.65 Type 2 diabetes mellitus with hyperglycemia; E11.22 Type 2 diabetes mellitus with diabetic chronic kidney disease; I12.9 Hypertensive chronic kidney disease with stage 1 through stage 4 chronic kidney disease, or unspecified chronic kidney disease; N18.9 Chronic kidney disease, unspecified; I25.10 Atherosclerotic heart disease of native coronary artery without angina pectoris; I25.2 Old myocardial infarction; E78.5 Hyperlipidemia, unspecified; J44.9 Chronic obstructive pulmonary disease, unspecified; Z87.891 Personal history of nicotine dependence; Z79.82 Long term (current) use of aspirin; Z79.4 Long term (current) use of insulin; Z79.899 Other long term (current) drug therapy; Z95.1 Presence of aortocoronary bypass graft
CPT/HCPCS: 36415; 36416; 74176; 80053; 83690; 85025; 96374; J1815

== ENCOUNTER 2021-06-23 20:24 | Emergency (ER) | payer OTHER, MEDICARE, MEDICAID ==
[2021-06-23 21:10] LABS: #Eosinphils 0.1 thou/uL (0.0-0.7); #Lymphocytes 0.5 thou/uL (1.20-3.40); #Monocytes 0.2 thou/uL (0.11-0.59); #Neutrophils 7.4 thou/uL (1.40-6.50); %Basophils 0.4 % (0.0-1.0); %Eosinophils 0.6 % (0.0-10.0); %Lymphocytes 6.3 % (21.0-51.0); %Monocytes 2.2 % (0.0-10.0); %Neutrophils 90.4 % (42.0-75.0); Hemoglobin 12.6 g/dL (14.0-18.0); Mean Corpuscular HGB CONC 33.7 g/dL (32.0-36.0); Mean Corpuscular Volume 80.1 fL (78.0-98.0); Mean Platelet Volume 8.1 fL (7.4-10.4); Platelet Count 286 thou/uL (130-400); RBC Distribution Width 14.2 % (11.5-14.5); Red Blood Cell (RBC) Count 4.68 mill/uL (4.70-6.10); White Blood Cell (WBC) Count 8.2 thou/uL (4.8-10.8)
[2021-06-23 21:38] LABS: ALT (SGPT) 27 U/L (8-55); AST (SGOT) 30 U/L (5-34); Albumin 3.6 g/dL (3.5-5.0); Alkaline Phosphatase 32 U/L (40-110); Anion Gap 14 mmol/L (10-20); BUN (Urea Nitrogen) 48 mg/dL (8.4-25.7); Bilirubin, Total 0.4 mg/dL (0.2-1.2); Calc. Creatinine Clearance 0 mL/min (70-130); Calcium 8.6 mg/dL (7.8-10.44); Carbon Dioxide 19 mmol/L (22-29); Chloride 103 mmol/L (98-107); Globulin 3.7 g/dL (2.4-3.5); Glucose 274 mg/dL (70-105); Potassium 4.9 mmol/L (3.5-5.1); Protein, Total 7.3 g/dL (6.0-8.3); Sodium 131 mmol/L (136-145)
[2021-06-23] MEDS ORDERED: Acetaminophen 500 MG TAB ONE (22:07)
[2021-06-23 22:30] LABS: Bacteria/HPF None Seen HPF (None Seen); Bilirubin Negative (Negative); Blood, Urine 1+ (Negative); Clarity Clear (Clear); Glucose, Urine (Dipstick) Greater than 1000 mg/dL (Negative); Ketone, Urine Negative (Negative); Leukocyte Negative Leu/uL (Negative); Nitrite Negative (Negative); Protein, Urine (Dipstick) 200 mg/dL (Neg-Trace); RBC/HPF 0-3 HPF (0-3); Squamous Epithelial 0-3 HPF (0-3); Urobilinogen Normal mg/dL (Less than 2); WBC/HPF 0-3 HPF (0-3); pH, Urine 5.5 (5.0-9.0)
[2021-06-23 23:15] LABS: SARS-CoV-2 NAA Rapid Test Not Detected (NotDetected)
== END 2021-06-24 00:07 | disposition home or self-care (01) ==
LOC: ERS 20:24
DX: S98.922A Partial traumatic amputation of left foot, level unspecified, initial encounter (principal); R53.81 Other malaise; E11.22 Type 2 diabetes mellitus with diabetic chronic kidney disease; I12.9 Hypertensive chronic kidney disease with stage 1 through stage 4 chronic kidney disease, or unspecified chronic kidney disease; N18.9 Chronic kidney disease, unspecified; I25.2 Old myocardial infarction; I25.10 Atherosclerotic heart disease of native coronary artery without angina pectoris; Z87.891 Personal history of nicotine dependence; Z79.82 Long term (current) use of aspirin; Z79.899 Other long term (current) drug therapy; Z20.822 Contact with and (suspected) exposure to COVID-19; W01.0XXA Fall on same level from slipping, tripping and stumbling without subsequent striking against object, initial encounter
CPT/HCPCS: 0240U; 71045; 72131; 80053; 83605; 83880; 84484; 85025; 87040; 87086; 93005; 36415; 81003; 81015; 96374

== ENCOUNTER 2021-09-20 20:59 | Emergency (ER) | payer MEDICARE, MEDICAID | END 2021-09-21 01:40 | disposition home or self-care (01) | LOC: ERS 20:59 | DX: R10.30 Lower abdominal pain, unspecified (principal); Z79.899 Other long term (current) drug therapy; Z79.82 Long term (current) use of aspirin; I25.2 Old myocardial infarction; E11.9 Type 2 diabetes mellitus without complications; E78.5 Hyperlipidemia, unspecified; I12.9 Hypertensive chronic kidney disease with stage 1 through stage 4 chronic kidney disease, or unspecified chronic kidney disease; N18.9 Chronic kidney disease, unspecified; J44.9 Chronic obstructive pulmonary disease, unspecified; Z87.891 Personal history of nicotine dependence | CPT/HCPCS: 36415; 71045; 76705; 80053; 83690; 84484; 85025; 93005; Q0162 ==

== ENCOUNTER 2021-10-04 11:41 | Inpatient (IN) | payer MEDICARE, MEDICAID ==
[2021-10-04 13:32] LABS: #Lymphocytes 1.6 thou/uL (1.20-3.40); #Monocytes 0.5 thou/uL (0.11-0.59); #Neutrophils 7.5 thou/uL (1.40-6.50); %Basophils 0.3 % (0.0-1.0); %Eosinophils 0.4 % (0.0-10.0); %Lymphocytes 16.6 % (21.0-51.0); %Monocytes 4.9 % (0.0-10.0); %Neutrophils 77.9 % (42.0-75.0); Hemoglobin 12.3 g/dL (14.0-18.0); Mean Corpuscular HGB CONC 33.3 g/dL (32.0-36.0); Mean Corpuscular Hemoglobin 26.9 pg (27.0-31.0); Mean Platelet Volume 7.2 fL (7.4-10.4); Platelet Count 368 thou/uL (130-400); RBC Distribution Width 13.6 % (11.5-14.5); Red Blood Cell (RBC) Count 4.56 mill/uL (4.70-6.10); White Blood Cell (WBC) Count 9.6 thou/uL (4.8-10.8)
[2021-10-04 13:54] LABS: ALT (SGPT) 13 U/L (8-55); AST (SGOT) 18 U/L (5-34); Albumin 3.7 g/dL (3.5-5.0); Alkaline Phosphatase 44 U/L (40-110); Anion Gap 13 mmol/L (10-20); BUN (Urea Nitrogen) 36 mg/dL (8.4-25.7); Bilirubin, Total 0.3 mg/dL (0.2-1.2); Calc. Creatinine Clearance 0 mL/min (70-130); Calcium 9.5 mg/dL (7.8-10.44); Carbon Dioxide 20 mmol/L (22-29); Chloride 103 mmol/L (98-107); Globulin 4.6 g/dL (2.4-3.5); Glucose 161 mg/dL (70-105); Potassium 4.3 mmol/L (3.5-5.1); Protein, Total 8.3 g/dL (6.0-8.3); Sodium 132 mmol/L (136-145)
[2021-10-04] MEDS ORDERED: Morphine 4 MG/ML VIAL ONE (16:07)
[2021-10-04] MEDS ORDERED: Clindamycin/D5W 900 mg/50 ml Premix Bag ONE (16:07)
[2021-10-04] MEDS ORDERED: Ondansetron PF 4 MG/2 ML Vial ONE (16:07)
[2021-10-04] MEDS ORDERED: Dextrose 50% Abboject 50 ML SYRINGE SLOW IVP PRN (16:40)
[2021-10-04] MEDS ORDERED: Dextrose 5% in Water 1,000 ML IV PRN (16:40)
[2021-10-04] MEDS ORDERED: Cefepime 2 GM in Sodium Chloride 0.9% 100 ML IVPB SCH (17:15)
[2021-10-04 17:24] VITALS: BMI 27.3
[2021-10-04] MEDS ORDERED: Simethicone Chewable 80 MG TAB PO PRN (17:26)
[2021-10-04] MEDS ORDERED: Acetaminophen 325 MG TAB PO PRN (17:30)
[2021-10-04] MEDS ORDERED: Ondansetron PF 4 MG/2 ML Vial IVP PRN (17:30)
[2021-10-04] MEDS ORDERED: Sodium Chloride 0.9% 1,000 ML IV SCH (17:30)
[2021-10-04] MEDS ORDERED: Ondansetron ODT 4 MG TAB SL PRN (17:30)
[2021-10-04] MEDS ORDERED: VANCOMYCIN 1.25 GM/250 ML BAG 1.25 GM in Premix Bag 1 BAG IVPB SCH (18:00)
[2021-10-04] MEDS ORDERED: Vancomycin 1 GM, Admixture Fee 1 EACH in Premix Bag 1 BAG IVPB SCH (18:00)
[2021-10-04] MEDS: Carvedilol 3.125 MG TAB PO SCH (20:22)
[2021-10-04] MEDS: Fenofibrate Nanocrystallized 145 MG TAB PO SCH (20:22)
[2021-10-04] MEDS: hydrOXYzine 25 MG TAB PO SCH (20:22)
[2021-10-04] MEDS: Gabapentin 300 MG CAP PO SCH (20:22)
[2021-10-04] MEDS: Midodrine HCl 5 MG TAB PO SCH (20:22)
[2021-10-04] MEDS: Insulin Glargine 30 UNITS/0.3 ML VIAL SC SCH (20:23)
[2021-10-04] MEDS ORDERED: Clindamycin/D5W 900 MG in Premix Bag 1 BAG IVPB SCH (23:59)
[2021-10-05 04:28] LABS: #Basophils 0.1 thou/uL (0.0-0.2); #Eosinphils 0.2 thou/uL (0.0-0.7); #Lymphocytes 1.9 thou/uL (1.20-3.40); #Monocytes 0.7 thou/uL (0.11-0.59); %Basophils 0.7 % (0.0-1.0); %Eosinophils 1.8 % (0.0-10.0); %Lymphocytes 21.7 % (21.0-51.0); %Monocytes 7.4 % (0.0-10.0); %Neutrophils 68.5 % (42.0-75.0); Hemoglobin 10.6 g/dL (14.0-18.0); Mean Corpuscular HGB CONC 32.8 g/dL (32.0-36.0); Mean Corpuscular Hemoglobin 26.9 pg (27.0-31.0); Mean Platelet Volume 7.3 fL (7.4-10.4); Platelet Count 352 thou/uL (130-400); RBC Distribution Width 13.6 % (11.5-14.5); Red Blood Cell (RBC) Count 3.93 mill/uL (4.70-6.10); White Blood Cell (WBC) Count 8.8 thou/uL (4.8-10.8)
[2021-10-05 04:47] LABS: ALT (SGPT) 10 U/L (8-55); AST (SGOT) 22 U/L (5-34); Alkaline Phosphatase 42 U/L (40-110); Anion Gap 11 mmol/L (10-20); BUN (Urea Nitrogen) 30 mg/dL (8.4-25.7); Bilirubin, Total 0.2 mg/dL (0.2-1.2); Calc. Creatinine Clearance 38 mL/min (70-130); Calcium 8.4 mg/dL (7.8-10.44); Carbon Dioxide 18 mmol/L (22-29); Chloride 106 mmol/L (98-107); Globulin 3.6 g/dL (2.4-3.5); Glucose 299 mg/dL (70-105); Potassium 4.4 mmol/L (3.5-5.1); Protein, Total 6.6 g/dL (6.0-8.3); Sodium 131 mmol/L (136-145)
[2021-10-05] MEDS ORDERED: Fish Oil 1,000 MG CAP PO SCH ×2 (08:00→10:15)
[2021-10-05] MEDS ORDERED: HumaLOG 300 UNITS/3 ML VIAL SC PRN (08:00)
[2021-10-05] MEDS: HumaLOG 300 UNITS/3 ML VIAL SC SCH ×3 (10:08→18:30)
[2021-10-05] MEDS: HumaLOG 300 UNITS/3 ML VIAL SC PRN ×3 (10:09→18:17)
[2021-10-05] MEDS: Insulin Glargine 30 UNITS/0.3 ML VIAL SC SCH ×2 (10:11→20:44)
[2021-10-05] MEDS: Atorvastatin Calcium 40 MG TAB PO SCH (10:13)
[2021-10-05] MEDS: Carvedilol 3.125 MG TAB PO SCH ×3 (10:14→20:43)
[2021-10-05] MEDS: Gabapentin 300 MG CAP PO SCH ×2 (10:14→20:43)
[2021-10-05] MEDS: Midodrine HCl 5 MG TAB PO SCH ×3 (10:15→20:44)
[2021-10-05] MEDS: hydrOXYzine 25 MG TAB PO SCH ×3 (10:15→20:44)
[2021-10-05] MEDS: Fish Oil 1,000 MG CAP PO SCH ×2 (10:17→16:39)
[2021-10-05] MEDS ORDERED: Cefepime 1 GM in Sodium Chloride 0.9% 100 ML IVPB SCH (17:00)
[2021-10-05] MEDS: VANCOMYCIN 1.25 GM/250 ML BAG 1.25 GM in Premix Bag 1 BAG IVPB SCH (18:16)
[2021-10-05] MEDS: Fenofibrate Nanocrystallized 145 MG TAB PO SCH (20:43)
[2021-10-05] MEDS: Heparin 5,000 UNITS/ML VIAL SC SCH (20:44)
[2021-10-06 04:57] LABS: #Basophils 0.1 thou/uL (0.0-0.2); #Eosinphils 0.2 thou/uL (0.0-0.7); #Lymphocytes 2.6 thou/uL (1.20-3.40); #Monocytes 0.4 thou/uL (0.11-0.59); #Neutrophils 3.7 thou/uL (1.40-6.50); %Eosinophils 2.4 % (0.0-10.0); %Lymphocytes 37.7 % (21.0-51.0); Mean Corpuscular HGB CONC 33.1 g/dL (32.0-36.0); Mean Corpuscular Volume 81.4 fL (78.0-98.0); Mean Platelet Volume 7.3 fL (7.4-10.4); Platelet Count 389 thou/uL (130-400); RBC Distribution Width 13.6 % (11.5-14.5); Red Blood Cell (RBC) Count 4.06 mill/uL (4.70-6.10); White Blood Cell (WBC) Count 6.9 thou/uL (4.8-10.8)
[2021-10-06 05:19] LABS: ALT (SGPT) 11 U/L (8-55); AST (SGOT) 15 U/L (5-34); Albumin 3.1 g/dL (3.5-5.0); Alkaline Phosphatase 35 U/L (40-110); Anion Gap 14 mmol/L (10-20); BUN (Urea Nitrogen) 28 mg/dL (8.4-25.7); Bilirubin, Total 0.2 mg/dL (0.2-1.2); Calc. Creatinine Clearance 41 mL/min (70-130); Calcium 8.9 mg/dL (7.8-10.44); Carbon Dioxide 22 mmol/L (22-29); Chloride 104 mmol/L (98-107); Globulin 3.9 g/dL (2.4-3.5); Glucose 168 mg/dL (70-105); Potassium 4.5 mmol/L (3.5-5.1); Sodium 135 mmol/L (136-145)
[2021-10-06] MEDS: HumaLOG 300 UNITS/3 ML VIAL SC SCH ×3 (08:34→18:16)
[2021-10-06] MEDS: Gabapentin 300 MG CAP PO SCH ×2 (08:39→21:13)
[2021-10-06] MEDS: Fish Oil 1,000 MG CAP PO SCH ×2 (08:39→18:16)
[2021-10-06] MEDS: Heparin 5,000 UNITS/ML VIAL SC SCH ×3 (08:40→21:11)
[2021-10-06] MEDS: Carvedilol 3.125 MG TAB PO SCH ×3 (08:40→21:16)
[2021-10-06] MEDS: Atorvastatin Calcium 40 MG TAB PO SCH (08:40)
[2021-10-06] MEDS: hydrOXYzine 25 MG TAB PO SCH ×3 (08:40→21:15)
[2021-10-06] MEDS: Midodrine HCl 5 MG TAB PO SCH ×3 (08:40→21:15)
[2021-10-06] MEDS: Insulin Glargine 30 UNITS/0.3 ML VIAL SC SCH ×2 (08:41→21:10)
[2021-10-06] MEDS: HumaLOG 300 UNITS/3 ML VIAL SC PRN (11:59)
[2021-10-06 18:07] LABS: Vancomycin, Trough 16.2 ug/mL
[2021-10-06] MEDS: VANCOMYCIN 1.25 GM/250 ML BAG 1.25 GM in Premix Bag 1 BAG IVPB SCH (18:17)
[2021-10-06] MEDS: Fenofibrate Nanocrystallized 145 MG TAB PO SCH (21:15)
[2021-10-07 05:19] LABS: Anion Gap 13 mmol/L (10-20); BUN (Urea Nitrogen) 28 mg/dL (8.4-25.7); Calc. Creatinine Clearance 40 mL/min (70-130); Calcium 9.5 mg/dL (7.8-10.44); Carbon Dioxide 21 mmol/L (22-29); Chloride 105 mmol/L (98-107); Glucose 273 mg/dL (70-105); Potassium 4.6 mmol/L (3.5-5.1); Sodium 134 mmol/L (136-145)
[2021-10-07 08:58] VITALS: BP 142/80; TEMP 97.5
[2021-10-07] MEDS: hydrOXYzine 25 MG TAB PO SCH (09:23)
[2021-10-07] MEDS: Fish Oil 1,000 MG CAP PO SCH (09:23)
[2021-10-07] MEDS: Atorvastatin Calcium 40 MG TAB PO SCH (09:23)
[2021-10-07] MEDS: Midodrine HCl 5 MG TAB PO SCH (09:23)
[2021-10-07] MEDS: Carvedilol 3.125 MG TAB PO SCH (09:23)
[2021-10-07] MEDS: Gabapentin 300 MG CAP PO SCH (09:24)
[2021-10-07] MEDS: Heparin 5,000 UNITS/ML VIAL SC SCH (09:24)
[2021-10-07] MEDS: HumaLOG 300 UNITS/3 ML VIAL SC SCH (09:25)
[2021-10-07] MEDS: Insulin Glargine 30 UNITS/0.3 ML VIAL SC SCH (09:33)
== END 2021-10-07 10:52 | disposition home or self-care (01) | DRG 623 ==
LOC: ERS 11:41 → SJJU 15:43 → 2SW 17:53
PROVIDERS: ADMIT Student in an Organized Health Care Education/Training Program; ATTEND Student in an Organized Health Care Education/Training Program
PROC: 0JBR0ZZ Excision of Left Foot Subcutaneous Tissue and Fascia, Open Approach (ICD-10-PCS; principal; 2021-10-04)
DX: E11.621 Type 2 diabetes mellitus with foot ulcer (principal); L97.429 Non-pressure chronic ulcer of left heel and midfoot with unspecified severity; I50.22 Chronic systolic (congestive) heart failure; I13.0 Hypertensive heart and chronic kidney disease with heart failure and stage 1 through stage 4 chronic kidney disease, or unspecified chronic kidney disease; I25.10 Atherosclerotic heart disease of native coronary artery without angina pectoris; E78.5 Hyperlipidemia, unspecified; J44.9 Chronic obstructive pulmonary disease, unspecified; N18.9 Chronic kidney disease, unspecified; E11.22 Type 2 diabetes mellitus with diabetic chronic kidney disease; I95.1 Orthostatic hypotension; N18.30 Chronic kidney disease, stage 3 unspecified; E11.65 Type 2 diabetes mellitus with hyperglycemia; D63.1 Anemia in chronic kidney disease; I25.2 Old myocardial infarction; Z90.49 Acquired absence of other specified parts of digestive tract; Z95.1 Presence of aortocoronary bypass graft; Z95.810 Presence of automatic (implantable) cardiac defibrillator; Z89.422 Acquired absence of other left toe(s); Z89.421 Acquired absence of other right toe(s); Z83.3 Family history of diabetes mellitus; Z87.891 Personal history of nicotine dependence
CPT/HCPCS: 36415; 36416; 80048; 80053; 80202; 83605; 84145; 85025; 87040; 87070; 87077; 87186; 87205; 93005; 96374; 96375; J0692; J1644; J1815; J2270; J2405; J3370; J3490; J7050

== ENCOUNTER 2021-10-11 19:56 | Emergency (ER) | payer MEDICARE, MEDICAID ==
[2021-10-11] MEDS ORDERED: Ondansetron PF 4 MG/2 ML Vial ONE (21:04)
[2021-10-11] MEDS ORDERED: hydrOXYzine 25 MG TAB ONE (21:04)
[2021-10-11] MEDS ORDERED: Ketorolac Tromethamine 30 MG/ML VIAL ONE (21:04)
[2021-10-11 21:13] LABS: #Basophils 0.1 thou/uL (0.0-0.2); #Eosinphils 0.2 thou/uL (0.0-0.7); #Lymphocytes 2.5 thou/uL (1.20-3.40); #Monocytes 0.4 thou/uL (0.11-0.59); #Neutrophils 3.9 thou/uL (1.40-6.50); %Basophils 1.3 % (0.0-1.0); %Eosinophils 3.4 % (0.0-10.0); %Lymphocytes 35.5 % (21.0-51.0); %Monocytes 5.1 % (0.0-10.0); %Neutrophils 54.7 % (42.0-75.0); Hemoglobin 10.8 g/dL (14.0-18.0); Mean Corpuscular HGB CONC 32.9 g/dL (32.0-36.0); Mean Corpuscular Hemoglobin 26.5 pg (27.0-31.0); Mean Corpuscular Volume 80.5 fL (78.0-98.0); Mean Platelet Volume 7.2 fL (7.4-10.4); Platelet Count 384 thou/uL (130-400); RBC Distribution Width 13.6 % (11.5-14.5); Red Blood Cell (RBC) Count 4.08 mill/uL (4.70-6.10); White Blood Cell (WBC) Count 7.1 thou/uL (4.8-10.8)
[2021-10-11 21:34] LABS: ALT (SGPT) 21 U/L (8-55); AST (SGOT) 19 U/L (5-34); Albumin 3.5 g/dL (3.5-5.0); Alkaline Phosphatase 35 U/L (40-110); Anion Gap 12 mmol/L (10-20); BUN (Urea Nitrogen) 34 mg/dL (8.4-25.7); Bilirubin, Total 0.2 mg/dL (0.2-1.2); Calc. Creatinine Clearance 0 mL/min (70-130); Calcium 9.2 mg/dL (7.8-10.44); Carbon Dioxide 23 mmol/L (22-29); Chloride 99 mmol/L (98-107); Glucose 347 mg/dL (70-105); Potassium 4.1 mmol/L (3.5-5.1); Protein, Total 7.5 g/dL (6.0-8.3); Sodium 130 mmol/L (136-145)
== END 2021-10-11 21:55 | disposition home or self-care (01) ==
LOC: ERS 19:56
DX: E11.621 Type 2 diabetes mellitus with foot ulcer (principal); I25.2 Old myocardial infarction; J44.9 Chronic obstructive pulmonary disease, unspecified; Z87.891 Personal history of nicotine dependence; I12.9 Hypertensive chronic kidney disease with stage 1 through stage 4 chronic kidney disease, or unspecified chronic kidney disease; N18.9 Chronic kidney disease, unspecified
CPT/HCPCS: 36415; 80053; 85025; 96374; 96375; J1885; J2405

== ENCOUNTER 2021-11-12 09:11 | Emergency (ER) | payer OTHER, MEDICARE ==
[2021-11-12 09:59] LABS: #Basophils 0.1 thou/uL (0.0-0.2); #Eosinphils 0.2 thou/uL (0.0-0.7); #Lymphocytes 1.7 thou/uL (1.20-3.40); #Monocytes 0.2 thou/uL (0.11-0.59); #Neutrophils 3.5 thou/uL (1.40-6.50); %Basophils 1.1 % (0.0-1.0); %Monocytes 3.9 % (0.0-10.0); %Neutrophils 62.1 % (42.0-75.0); Hemoglobin 13.1 g/dL (14.0-18.0); Mean Corpuscular HGB CONC 32.6 g/dL (32.0-36.0); Mean Corpuscular Hemoglobin 26.2 pg (27.0-31.0); Mean Corpuscular Volume 80.3 fL (78.0-98.0); Mean Platelet Volume 8.6 fL (7.4-10.4); Platelet Count 237 thou/uL (130-400); RBC Distribution Width 14.3 % (11.5-14.5); Red Blood Cell (RBC) Count 5.02 mill/uL (4.70-6.10); White Blood Cell (WBC) Count 5.6 thou/uL (4.8-10.8)
[2021-11-12 10:04] LABS: ALT (SGPT) 40 U/L (8-55); AST (SGOT) 25 U/L (5-34); Albumin 3.7 g/dL (3.5-5.0); Alkaline Phosphatase 60 U/L (40-110); Anion Gap 14 mmol/L (10-20); BUN (Urea Nitrogen) 26 mg/dL (8.4-25.7); Bilirubin, Total 0.6 mg/dL (0.2-1.2); Calc. Creatinine Clearance 0 mL/min (70-130); Calcium 9.5 mg/dL (7.8-10.44); Carbon Dioxide 20 mmol/L (22-29); Chloride 97 mmol/L (98-107); Glucose 367 mg/dL (70-105); Lipase 55 U/L (8-78); Magnesium 1.9 mg/dL (1.6-2.6); Potassium 4.3 mmol/L (3.5-5.1); Protein, Total 7.7 g/dL (6.0-8.3); Sodium 127 mmol/L (136-145)
[2021-11-12 10:53] LABS: Actual Bicarbonate (HCO3v) 18 mEq/L (22-28); Analyzer IN Cardio ER; Base Excess -4.8 mEq/L (-2.0 to +3.0); Chloride (VBG) 100 mmol/L (98-106); Hemoglobin (Hb) 15.1 g/dL (13.1-17.2); Potassium (VBG) 4.29 mmol/L (3.70-5.30); Sodium 129.1 mmol/L (133-146); pH (venous) 7.44 (7.32-7.43)
[2021-11-12 11:31] LABS: Bacteria/HPF None Seen HPF (None Seen); Bilirubin Negative (Negative); Blood, Urine 1+ (Negative); Clarity Clear (Clear); Glucose, Urine (Dipstick) Greater than 1000 mg/dL (Negative); Ketone, Urine Negative (Negative); Leukocyte Negative Leu/uL (Negative); Nitrite Negative (Negative); Protein, Urine (Dipstick) 300 mg/dL (Neg-Trace); RBC/HPF 0-3 HPF (0-3); Specific Gravity, Urine 1.022 (1.002-1.036); Squamous Epithelial 0-3 HPF (0-3); Urobilinogen Normal mg/dL (Less than 2); WBC/HPF 0-3 HPF (0-3)
[2021-11-12 11:52] LABS: Troponin I 0.018 ng/mL (< 0.028)
== END 2021-11-12 13:00 | disposition home or self-care (01) ==
LOC: ERS 09:11
DX: E11.65 Type 2 diabetes mellitus with hyperglycemia (principal); R74.8 Abnormal levels of other serum enzymes; R94.4 Abnormal results of kidney function studies; I12.9 Hypertensive chronic kidney disease with stage 1 through stage 4 chronic kidney disease, or unspecified chronic kidney disease; E11.22 Type 2 diabetes mellitus with diabetic chronic kidney disease; N18.9 Chronic kidney disease, unspecified; I25.10 Atherosclerotic heart disease of native coronary artery without angina pectoris; I25.2 Old myocardial infarction; E78.5 Hyperlipidemia, unspecified; J44.9 Chronic obstructive pulmonary disease, unspecified; E78.00 Pure hypercholesterolemia, unspecified; Z79.4 Long term (current) use of insulin; Z79.82 Long term (current) use of aspirin; Z79.899 Other long term (current) drug therapy; Z87.891 Personal history of nicotine dependence
CPT/HCPCS: 36415; 36416; 71045; 80053; 81003; 81015; 82805; 83605; 83690; 83735; 84484; 85025; 93005; 96360; 96361

== ENCOUNTER 2021-11-14 15:18 | Inpatient (IN) | payer MEDICARE, MEDICAID ==
[2021-11-14 16:12] LABS: #Basophils 0.1 thou/uL (0.0-0.2); #Eosinphils 0.1 thou/uL (0.0-0.7); #Lymphocytes 2.1 thou/uL (1.20-3.40); #Monocytes 0.4 thou/uL (0.11-0.59); #Neutrophils 4.2 thou/uL (1.40-6.50); %Basophils 1.4 % (0.0-1.0); %Eosinophils 1.5 % (0.0-10.0); %Lymphocytes 30.4 % (21.0-51.0); %Monocytes 5.7 % (0.0-10.0); %Neutrophils 61.1 % (42.0-75.0); Hemoglobin 12.8 g/dL (14.0-18.0); Mean Corpuscular HGB CONC 33.6 g/dL (32.0-36.0); Mean Corpuscular Hemoglobin 26.6 pg (27.0-31.0); Mean Corpuscular Volume 79.1 fL (78.0-98.0); Mean Platelet Volume 8.5 fL (7.4-10.4); Platelet Count 260 thou/uL (130-400); RBC Distribution Width 14.3 % (11.5-14.5); Red Blood Cell (RBC) Count 4.81 mill/uL (4.70-6.10); White Blood Cell (WBC) Count 6.9 thou/uL (4.8-10.8)
[2021-11-14 16:24] LABS: PTT 27.7 sec (22.9-36.1)
[2021-11-14 16:32] LABS: ALT (SGPT) 40 U/L (8-55); AST (SGOT) 25 U/L (5-34); Alkaline Phosphatase 65 U/L (40-110); Anion Gap 13 mmol/L (10-20); BUN (Urea Nitrogen) 30 mg/dL (8.4-25.7); Bilirubin, Total 0.4 mg/dL (0.2-1.2); Calc. Creatinine Clearance 0 mL/min (70-130); Carbon Dioxide 21 mmol/L (22-29); Chloride 100 mmol/L (98-107); Globulin 4.2 g/dL (2.4-3.5); Glucose 427 mg/dL (70-105); Protein, Total 8.2 g/dL (6.0-8.3); Sodium 130 mmol/L (136-145)
[2021-11-14] MEDS ORDERED: HYDROcodone/Acetaminophen 5/325 mg Tablet ONE (16:37)
[2021-11-14] MEDS ORDERED: HumaLOG 300 UNITS/3 ML VIAL SC PRN ×2 (18:39→21:57)
[2021-11-14] MEDS ORDERED: Dextrose 50% Abboject 50 ML SYRINGE SLOW IVP PRN (18:39)
[2021-11-14] MEDS ORDERED: Dextrose 5% in Water 1,000 ML IV PRN (18:39)
[2021-11-14] MEDS ORDERED: Ondansetron PF 4 MG/2 ML Vial IVP PRN (18:45)
[2021-11-14 19:03] VITALS: BMI 25.7
[2021-11-14] MEDS: Lactated Ringer's 1,000 ML IV SCH (20:01)
[2021-11-14] MEDS: Insulin Glargine 30 UNITS/0.3 ML VIAL SC SCH (20:01)
[2021-11-14] MEDS: Midodrine HCl 5 MG TAB PO SCH (20:01)
[2021-11-14] MEDS: HumaLOG 300 UNITS/3 ML VIAL SC PRN ×2 (20:01→22:01)
[2021-11-14] MEDS: Pantoprazole 40 MG VIAL IVP SCH (20:01)
[2021-11-15] MEDS: HumaLOG 300 UNITS/3 ML VIAL SC PRN
[2021-11-15 00:15] LABS: SARS-CoV-2 PCR by NAA Not Detected (NotDetected)
[2021-11-15] MEDS: Lactated Ringer's 1,000 ML IV SCH (04:20)
[2021-11-15 05:52] LABS: #Basophils 0.1 thou/uL (0.0-0.2); #Eosinphils 0.2 thou/uL (0.0-0.7); #Lymphocytes 2.1 thou/uL (1.20-3.40); #Monocytes 0.4 thou/uL (0.11-0.59); #Neutrophils 3.9 thou/uL (1.40-6.50); %Eosinophils 2.7 % (0.0-10.0); %Monocytes 5.3 % (0.0-10.0); Mean Corpuscular HGB CONC 32.9 g/dL (32.0-36.0); Mean Corpuscular Hemoglobin 26.2 pg (27.0-31.0); Mean Corpuscular Volume 79.8 fL (78.0-98.0); Mean Platelet Volume 7.8 fL (7.4-10.4); Platelet Count 240 thou/uL (130-400); RBC Distribution Width 14.5 % (11.5-14.5); Red Blood Cell (RBC) Count 4.59 mill/uL (4.70-6.10); White Blood Cell (WBC) Count 6.6 thou/uL (4.8-10.8)
[2021-11-15 06:32] LABS: ALT (SGPT) 32 U/L (8-55); AST (SGOT) 24 U/L (5-34); Albumin 3.2 g/dL (3.5-5.0); Alkaline Phosphatase 49 U/L (40-110); Anion Gap 11 mmol/L (10-20); BUN (Urea Nitrogen) 24 mg/dL (8.4-25.7); Bilirubin, Total 0.3 mg/dL (0.2-1.2); Calc. Creatinine Clearance 45 mL/min (70-130); Calcium 8.9 mg/dL (7.8-10.44); Carbon Dioxide 20 mmol/L (22-29); Chloride 108 mmol/L (98-107); Globulin 3.2 g/dL (2.4-3.5); Glucose 98 mg/dL (70-105); Potassium 3.5 mmol/L (3.5-5.1); Protein, Total 6.4 g/dL (6.0-8.3); Sodium 135 mmol/L (136-145)
[2021-11-15] MEDS: Insulin Glargine 30 UNITS/0.3 ML VIAL SC SCH (08:38)
[2021-11-15] MEDS: Midodrine HCl 5 MG TAB PO SCH ×3 (08:42→20:44)
[2021-11-15] MEDS: Pantoprazole 40 MG VIAL IVP SCH ×2 (09:49→20:43)
[2021-11-15] MEDS ORDERED: GoLYTELY 4,000 ml Bottle PO SCH (18:00)
[2021-11-15] MEDS ORDERED: Insulin Glargine 30 UNITS/0.3 ML VIAL SC SCH ×2 (21:00)
[2021-11-16 07:22] LABS: #Basophils 0.1 thou/uL (0.0-0.2); #Eosinphils 0.1 thou/uL (0.0-0.7); #Lymphocytes 2.5 thou/uL (1.20-3.40); #Monocytes 0.4 thou/uL (0.11-0.59); #Neutrophils 2.7 thou/uL (1.40-6.50); %Basophils 1.2 % (0.0-1.0); %Eosinophils 2.4 % (0.0-10.0); %Lymphocytes 43.4 % (21.0-51.0); %Monocytes 6.4 % (0.0-10.0); %Neutrophils 46.6 % (42.0-75.0); Hemoglobin 12.2 g/dL (14.0-18.0); Mean Corpuscular HGB CONC 32.5 g/dL (32.0-36.0); Mean Corpuscular Hemoglobin 26.2 pg (27.0-31.0); Mean Corpuscular Volume 80.5 fL (78.0-98.0); Mean Platelet Volume 7.9 fL (7.4-10.4); Platelet Count 255 thou/uL (130-400); RBC Distribution Width 14.5 % (11.5-14.5); Red Blood Cell (RBC) Count 4.68 mill/uL (4.70-6.10); White Blood Cell (WBC) Count 5.8 thou/uL (4.8-10.8)
[2021-11-16 07:49] LABS: ALT (SGPT) 51 U/L (8-55); AST (SGOT) 47 U/L (5-34); Albumin 3.2 g/dL (3.5-5.0); Alkaline Phosphatase 58 U/L (40-110); Anion Gap 9 mmol/L (10-20); BUN (Urea Nitrogen) 14 mg/dL (8.4-25.7); Bilirubin, Total 0.5 mg/dL (0.2-1.2); Calc. Creatinine Clearance 43 mL/min (70-130); Calcium 8.7 mg/dL (7.8-10.44); Carbon Dioxide 25 mmol/L (22-29); Chloride 105 mmol/L (98-107); Globulin 3.4 g/dL (2.4-3.5); Glucose 100 mg/dL (70-105); Potassium 3.9 mmol/L (3.5-5.1); Protein, Total 6.6 g/dL (6.0-8.3); Sodium 135 mmol/L (136-145)
[2021-11-16 08:07] VITALS: BP 119/77; TEMP 97.9
[2021-11-16] MEDS: Pantoprazole 40 MG VIAL IVP SCH (08:23)
[2021-11-16] MEDS: Midodrine HCl 5 MG TAB PO SCH ×2 (08:23→17:02)
[2021-11-16] MEDS ORDERED: PHENYLEPHRINE-NS 100 MCG/ML 10 ML SYRINGE ONE (11:36)
[2021-11-16] MEDS ORDERED: Promethazine HCl 25 MG/ML VIAL IM PRN (11:45)
[2021-11-16] MEDS ORDERED: Promethazine HCl 25 MG/ML VIAL IVPB PRN (11:45)
[2021-11-16] MEDS ORDERED: Ondansetron HCl/PF 4 MG/2 ML Vial IVP PRN (11:45)
== END 2021-11-16 17:47 | disposition home or self-care (01) | DRG 378 ==
LOC: ERS 15:18 → MSONC 17:16 → OBSVTOIN 18:52 → T4-A 11-16 13:27
PROVIDERS: ADMIT Family Medicine; ATTEND Family Medicine
PROC: 0D758ZZ Dilation of Esophagus, Via Natural or Artificial Opening Endoscopic (ICD-10-PCS; principal; 2021-11-16)
PROC: 0DJD8ZZ Inspection of Lower Intestinal Tract, Via Natural or Artificial Opening Endoscopic (ICD-10-PCS; 2021-11-16)
DX: K92.1 Melena (principal); I13.0 Hypertensive heart and chronic kidney disease with heart failure and stage 1 through stage 4 chronic kidney disease, or unspecified chronic kidney disease; N18.4 Chronic kidney disease, stage 4 (severe); I50.22 Chronic systolic (congestive) heart failure; N17.9 Acute kidney failure, unspecified; Z20.822 Contact with and (suspected) exposure to COVID-19; E11.22 Type 2 diabetes mellitus with diabetic chronic kidney disease; E11.65 Type 2 diabetes mellitus with hyperglycemia; E11.621 Type 2 diabetes mellitus with foot ulcer; E78.2 Mixed hyperlipidemia; L97.529 Non-pressure chronic ulcer of other part of left foot with unspecified severity; I25.10 Atherosclerotic heart disease of native coronary artery without angina pectoris; R13.19 Other dysphagia; K64.8 Other hemorrhoids; Z95.810 Presence of automatic (implantable) cardiac defibrillator; Z79.4 Long term (current) use of insulin; Z79.82 Long term (current) use of aspirin; Z79.899 Other long term (current) drug therapy; Z90.49 Acquired absence of other specified parts of digestive tract; I25.2 Old myocardial infarction
CPT/HCPCS: 36415; 36416; 71045; 80053; 81003; 81015; 82274; 82805; 83605; 83690; 83735; 84484; 85025; 85610; 85730; 86850; 86900; 86901; 93005; 94760; 96360; 96361; C9113; J1815; J2405; J7120; U0003; U0005

== ENCOUNTER 2021-11-30 12:13 | Emergency (ER) | payer MEDICARE, OTHER ==
[2021-11-30 13:07] LABS: #Basophils 0.1 thou/uL (0.0-0.2); #Eosinphils 0.1 thou/uL (0.0-0.7); #Lymphocytes 1.5 thou/uL (1.20-3.40); #Monocytes 0.4 thou/uL (0.11-0.59); #Neutrophils 4.5 thou/uL (1.40-6.50); %Basophils 0.9 % (0.0-1.0); %Eosinophils 1.2 % (0.0-10.0); %Lymphocytes 23.1 % (21.0-51.0); %Monocytes 6.5 % (0.0-10.0); %Neutrophils 68.3 % (42.0-75.0); Hemoglobin 13.6 g/dL (14.0-18.0); Mean Corpuscular Hemoglobin 26.5 pg (27.0-31.0); Mean Corpuscular Volume 80.3 fL (78.0-98.0); Mean Platelet Volume 8.7 fL (7.4-10.4); Platelet Count 233 thou/uL (130-400); RBC Distribution Width 14.4 % (11.5-14.5); Red Blood Cell (RBC) Count 5.15 mill/uL (4.70-6.10); White Blood Cell (WBC) Count 6.6 thou/uL (4.8-10.8)
[2021-11-30 13:27] LABS: ALT (SGPT) 23 U/L (8-55); AST (SGOT) 19 U/L (5-34); Albumin 3.5 g/dL (3.5-5.0); Alkaline Phosphatase 64 U/L (40-110); Anion Gap 17 mmol/L (10-20); BUN (Urea Nitrogen) 35 mg/dL (8.4-25.7); Bilirubin, Total 0.4 mg/dL (0.2-1.2); Calc. Creatinine Clearance 0 mL/min (70-130); Calcium 9.1 mg/dL (7.8-10.44); Carbon Dioxide 15 mmol/L (22-29); Chloride 100 mmol/L (98-107); Globulin 4.3 g/dL (2.4-3.5); Glucose 431 mg/dL (70-105); Potassium 4.3 mmol/L (3.5-5.1); Protein, Total 7.8 g/dL (6.0-8.3); Sodium 128 mmol/L (136-145)
[2021-11-30] MEDS ORDERED: Morphine 4 MG/ML VIAL ONE (13:54)
[2021-11-30] MEDS ORDERED: Cefepime 2 GM VIAL ONE (13:54)
[2021-11-30] MEDS ORDERED: Ondansetron PF 4 MG/2 ML Vial ONE (13:54)
[2021-11-30] MEDS ORDERED: Vancomycin 1.5 GRAM/300 ML BAG 1.5 GM in Premix Bag 1 BAG IVPB SCH (14:15)
== END 2021-11-30 16:26 | disposition home or self-care (01) ==
LOC: ERS 12:13
DX: L03.116 Cellulitis of left lower limb (principal); I25.10 Atherosclerotic heart disease of native coronary artery without angina pectoris; I25.2 Old myocardial infarction; E78.5 Hyperlipidemia, unspecified; I10 Essential (primary) hypertension; J44.9 Chronic obstructive pulmonary disease, unspecified; E11.22 Type 2 diabetes mellitus with diabetic chronic kidney disease; I12.9 Hypertensive chronic kidney disease with stage 1 through stage 4 chronic kidney disease, or unspecified chronic kidney disease; N18.9 Chronic kidney disease, unspecified; Z87.891 Personal history of nicotine dependence; Z79.82 Long term (current) use of aspirin; Z79.899 Other long term (current) drug therapy
CPT/HCPCS: 73630; 80053; 83605; 85025; 87040; J3370; 36415; 96365; 96375; J0692; J2270; J2405

== ENCOUNTER 2021-12-04 09:37 | Observation (INO) | payer MEDICARE, MEDICAID ==
[2021-12-04 10:02] LABS: #Basophils 0.1 thou/uL (0.0-0.2); #Eosinphils 0.1 thou/uL (0.0-0.7); #Lymphocytes 2.2 thou/uL (1.20-3.40); #Monocytes 0.4 thou/uL (0.11-0.59); #Neutrophils 4.7 thou/uL (1.40-6.50); %Basophils 0.9 % (0.0-1.0); %Eosinophils 1.3 % (0.0-10.0); %Lymphocytes 29.3 % (21.0-51.0); %Monocytes 5.2 % (0.0-10.0); %Neutrophils 63.2 % (42.0-75.0); Hemoglobin 12.7 g/dL (14.0-18.0); Mean Corpuscular HGB CONC 33.7 g/dL (32.0-36.0); Mean Corpuscular Hemoglobin 26.7 pg (27.0-31.0); Mean Corpuscular Volume 79.2 fL (78.0-98.0); Platelet Count 307 thou/uL (130-400); RBC Distribution Width 14.1 % (11.5-14.5); Red Blood Cell (RBC) Count 4.75 mill/uL (4.70-6.10); White Blood Cell (WBC) Count 7.4 thou/uL (4.8-10.8)
[2021-12-04 10:35] LABS: ALT (SGPT) 19 U/L (8-55); AST (SGOT) 13 U/L (5-34); Albumin 3.4 g/dL (3.5-5.0); Alkaline Phosphatase 51 U/L (40-110); Anion Gap 13 mmol/L (10-20); BUN (Urea Nitrogen) 30 mg/dL (8.4-25.7); Bilirubin, Total 0.3 mg/dL (0.2-1.2); Calc. Creatinine Clearance 0 mL/min (70-130); Calcium 9.8 mg/dL (7.8-10.44); Carbon Dioxide 22 mmol/L (22-29); Chloride 98 mmol/L (98-107); Globulin 4.1 g/dL (2.4-3.5); Glucose 509 mg/dL (70-105); Potassium 4.5 mmol/L (3.5-5.1); Protein, Total 7.5 g/dL (6.0-8.3); Sodium 128 mmol/L (136-145)
[2021-12-04] MEDS ORDERED: Cefepime 2 GM VIAL ONE (13:40)
[2021-12-04] MEDS ORDERED: Dextrose 50% Abboject 50 ML SYRINGE SLOW IVP PRN (13:55)
[2021-12-04] MEDS ORDERED: Acetaminophen 325 MG TAB PO PRN (13:55)
[2021-12-04] MEDS ORDERED: Dextrose 5% in Water 1,000 ML IV PRN (13:55)
[2021-12-04] MEDS ORDERED: HumaLOG 300 UNITS/3 ML VIAL SC PRN (13:55)
[2021-12-04] MEDS ORDERED: Clindamycin/D5W 900 mg/50 ml Premix Bag ONE (14:36)
[2021-12-04] MEDS: Heparin 5,000 UNITS/ML VIAL SC SCH ×2 (16:10→20:30)
[2021-12-04] MEDS: HumaLOG 300 UNITS/3 ML VIAL SC PRN (16:10)
[2021-12-04 16:40] VITALS: BMI 24.6
[2021-12-04 17:50] LABS: SARS-CoV-2 NAA Rapid Test Not Detected (NotDetected)
[2021-12-04] MEDS ORDERED: Vancomycin HCl 750 MG in Sodium Chloride 0.9% 250 ML 250 ML IVPB SCH (18:00)
[2021-12-04] MEDS ORDERED: Acetaminophen 325 MG TAB PO SCH (18:00)
[2021-12-04] MEDS ORDERED: Simethicone Chewable 80 MG TAB PO PRN (18:35)
[2021-12-04] MEDS: Gabapentin 300 MG CAP PO SCH (20:22)
[2021-12-04] MEDS: Midodrine HCl 5 MG TAB PO SCH (20:23)
[2021-12-04] MEDS: Insulin Glargine 30 UNITS/0.3 ML VIAL SC SCH (20:24)
[2021-12-04] MEDS ORDERED: Non-Formulary Item 1 EACH (Gabapentin [Gabapentin] 600 MG Tablet) PO SCH (21:00)
[2021-12-04] MEDS ORDERED: Cefepime 2 GM in Sodium Chloride 0.9% 100 ML IVPB SCH (21:00)
[2021-12-04] MEDS ORDERED: Vancomycin HCl 1 GM in Sodium Chloride 0.9% 250 ML 300 ML IVPB SCH (21:00)
[2021-12-04] MEDS ORDERED: Fenofibrate Nanocrystallized 145 MG TAB PO SCH (21:00)
[2021-12-04] MEDS ORDERED: Clindamycin/D5W 600 MG in Premix Bag 1 BAG IVPB SCH (22:00)
[2021-12-05] MEDS: Acetaminophen 500 MG TAB PO SCH ×2 (01:42→11:44)
[2021-12-05] MEDS ORDERED: Cefepime 1 GM in Sodium Chloride 0.9% 100 ML IVPB SCH (02:00)
[2021-12-05] MEDS: HumaLOG 300 UNITS/3 ML VIAL SC PRN (06:14)
[2021-12-05 07:00] LABS: #Basophils 0.1 thou/uL (0.0-0.2); #Eosinphils 0.2 thou/uL (0.0-0.7); #Lymphocytes 2.1 thou/uL (1.20-3.40); #Monocytes 0.3 thou/uL (0.11-0.59); #Neutrophils 2.8 thou/uL (1.40-6.50); %Basophils 1.7 % (0.0-1.0); %Eosinophils 3.3 % (0.0-10.0); %Monocytes 5.3 % (0.0-10.0); %Neutrophils 51.6 % (42.0-75.0); Hemoglobin 12.8 g/dL (14.0-18.0); Mean Corpuscular HGB CONC 33.9 g/dL (32.0-36.0); Mean Corpuscular Hemoglobin 27.1 pg (27.0-31.0); Platelet Count 312 thou/uL (130-400); RBC Distribution Width 14.1 % (11.5-14.5); Red Blood Cell (RBC) Count 4.74 mill/uL (4.70-6.10); White Blood Cell (WBC) Count 5.4 thou/uL (4.8-10.8)
[2021-12-05] MEDS ORDERED: Lactated Ringer's 1,000 ML IV SCH (07:00)
[2021-12-05 07:20] LABS: Anion Gap 12 mmol/L (10-20); BUN (Urea Nitrogen) 26 mg/dL (8.4-25.7); Calc. Creatinine Clearance 42 mL/min (70-130); Calcium 9.5 mg/dL (7.8-10.44); Carbon Dioxide 22 mmol/L (22-29); Chloride 105 mmol/L (98-107); Glucose 300 mg/dL (70-105); Potassium 4.3 mmol/L (3.5-5.1); Sodium 135 mmol/L (136-145)
[2021-12-05] MEDS ORDERED: Icosapent Ethyl 1 GM CAPSULE PO SCH (08:00)
[2021-12-05] MEDS ORDERED: Aspirin Chewable 81 MG TAB PO SCH (09:00)
[2021-12-05] MEDS ORDERED: Atorvastatin Calcium 40 MG TAB PO SCH (09:00)
[2021-12-05] MEDS ORDERED: Polyethylene Glycol 3350 17 GM Packet PO SCH (09:00)
[2021-12-05] MEDS: Gabapentin 300 MG CAP PO SCH (09:09)
[2021-12-05] MEDS: Midodrine HCl 5 MG TAB PO SCH (09:09)
[2021-12-05] MEDS: Carvedilol 3.125 MG TAB PO SCH ×2 (09:09→11:45)
[2021-12-05] MEDS: Heparin 5,000 UNITS/ML VIAL SC SCH (09:10)
[2021-12-05] MEDS: HumaLOG 300 UNITS/3 ML VIAL SC SCH ×2 (09:10→11:45)
[2021-12-05] MEDS: Insulin Glargine 30 UNITS/0.3 ML VIAL SC SCH ×2 (09:10→11:45)
[2021-12-05 11:59] VITALS: BP 121/79; TEMP 97.5
== END 2021-12-05 14:30 | disposition home or self-care (01) ==
LOC: ERS 09:37 → T4-A 13:47
PROVIDERS: ADMIT Student in an Organized Health Care Education/Training Program; ATTEND Student in an Organized Health Care Education/Training Program
DX: E11.621 Type 2 diabetes mellitus with foot ulcer (principal); L97.529 Non-pressure chronic ulcer of other part of left foot with unspecified severity; E87.1 Hypo-osmolality and hyponatremia; E11.65 Type 2 diabetes mellitus with hyperglycemia; I13.0 Hypertensive heart and chronic kidney disease with heart failure and stage 1 through stage 4 chronic kidney disease, or unspecified chronic kidney disease; E11.22 Type 2 diabetes mellitus with diabetic chronic kidney disease; N18.9 Chronic kidney disease, unspecified; I50.20 Unspecified systolic (congestive) heart failure; E78.5 Hyperlipidemia, unspecified; J44.9 Chronic obstructive pulmonary disease, unspecified; I25.2 Old myocardial infarction; I25.10 Atherosclerotic heart disease of native coronary artery without angina pectoris; Z87.891 Personal history of nicotine dependence; Z91.19 Patient's noncompliance with other medical treatment and regimen; Z79.4 Long term (current) use of insulin; Z79.82 Long term (current) use of aspirin; Z79.899 Other long term (current) drug therapy; Z95.810 Presence of automatic (implantable) cardiac defibrillator; Z95.1 Presence of aortocoronary bypass graft; Z89.411 Acquired absence of right great toe; Z89.421 Acquired absence of other right toe(s); Z89.422 Acquired absence of other left toe(s); Z20.822 Contact with and (suspected) exposure to COVID-19
CPT/HCPCS: 73630; 78315; 80048; 80053; 82962 ×2; 83605; 85025 ×2; 85652; 86140; 87040; 96366; 96372 ×2; 96375; 97139 ×2; A9503; G0378 ×3; U0002; 36415; 36416; J0692; J1644; J1815; J3370; J3490; J7050; J7120

== ENCOUNTER 2021-12-07 10:26 | Emergency (ER) | payer MEDICARE, OTHER ==
[2021-12-07 11:05] LABS: #Basophils 0.1 thou/uL (0.0-0.2); #Eosinphils 0.1 thou/uL (0.0-0.7); #Lymphocytes 1.9 thou/uL (1.20-3.40); #Monocytes 0.3 thou/uL (0.11-0.59); #Neutrophils 3.7 thou/uL (1.40-6.50); %Eosinophils 1.3 % (0.0-10.0); %Lymphocytes 31.6 % (21.0-51.0); %Monocytes 4.8 % (0.0-10.0); %Neutrophils 61.3 % (42.0-75.0); Hemoglobin 12.2 g/dL (14.0-18.0); Mean Corpuscular HGB CONC 33.2 g/dL (32.0-36.0); Mean Corpuscular Hemoglobin 26.6 pg (27.0-31.0); Mean Platelet Volume 7.9 fL (7.4-10.4); Platelet Count 341 thou/uL (130-400); RBC Distribution Width 14.2 % (11.5-14.5); Red Blood Cell (RBC) Count 4.58 mill/uL (4.70-6.10); White Blood Cell (WBC) Count 6.1 thou/uL (4.8-10.8)
[2021-12-07 11:27] LABS: ALT (SGPT) 24 U/L (8-55); AST (SGOT) 24 U/L (5-34); Albumin 3.5 g/dL (3.5-5.0); Alkaline Phosphatase 50 U/L (40-110); Anion Gap 15 mmol/L (10-20); BUN (Urea Nitrogen) 31 mg/dL (8.4-25.7); Bilirubin, Total 0.3 mg/dL (0.2-1.2); Calc. Creatinine Clearance 0 mL/min (70-130); Calcium 9.5 mg/dL (7.8-10.44); Carbon Dioxide 21 mmol/L (22-29); Chloride 101 mmol/L (98-107); Glucose 415 mg/dL (70-105); Potassium 4.8 mmol/L (3.5-5.1); Protein, Total 7.5 g/dL (6.0-8.3); Sodium 132 mmol/L (136-145)
== END 2021-12-07 13:30 | disposition home or self-care (01) ==
LOC: ERS 10:26
DX: E11.621 Type 2 diabetes mellitus with foot ulcer (principal); L97.429 Non-pressure chronic ulcer of left heel and midfoot with unspecified severity; E78.5 Hyperlipidemia, unspecified; J44.9 Chronic obstructive pulmonary disease, unspecified; I12.9 Hypertensive chronic kidney disease with stage 1 through stage 4 chronic kidney disease, or unspecified chronic kidney disease; N18.9 Chronic kidney disease, unspecified; I25.2 Old myocardial infarction; Z87.891 Personal history of nicotine dependence; Z79.899 Other long term (current) drug therapy
CPT/HCPCS: 36415; 36416; 80053; 83605; 85025; 85652; 86140; 87040; 93005; 96360

== ENCOUNTER 2021-12-14 11:41 | Emergency (ER) | payer MEDICARE, OTHER ==
[2021-12-14 12:39] LABS: #Basophils 0.1 thou/uL (0.0-0.2); #Eosinphils 0.1 thou/uL (0.0-0.7); #Lymphocytes 2.1 thou/uL (1.20-3.40); #Monocytes 0.3 thou/uL (0.11-0.59); #Neutrophils 5.8 thou/uL (1.40-6.50); %Eosinophils 0.9 % (0.0-10.0); %Lymphocytes 25.1 % (21.0-51.0); %Monocytes 3.7 % (0.0-10.0); %Neutrophils 69.4 % (42.0-75.0); Hemoglobin 13.8 g/dL (14.0-18.0); Mean Corpuscular HGB CONC 32.8 g/dL (32.0-36.0); Mean Corpuscular Hemoglobin 26.6 pg (27.0-31.0); Mean Platelet Volume 8.6 fL (7.4-10.4); Platelet Count 385 thou/uL (130-400); RBC Distribution Width 14.3 % (11.5-14.5); White Blood Cell (WBC) Count 8.4 thou/uL (4.8-10.8)
[2021-12-14 13:09] LABS: ALT (SGPT) 27 U/L (8-55); AST (SGOT) 23 U/L (5-34); Albumin 3.9 g/dL (3.5-5.0); Alkaline Phosphatase 62 U/L (40-110); Anion Gap 16 mmol/L (10-20); BUN (Urea Nitrogen) 34 mg/dL (8.4-25.7); Bilirubin, Total 0.6 mg/dL (0.2-1.2); Calc. Creatinine Clearance 0 mL/min (70-130); Calcium 10.4 mg/dL (7.8-10.44); Carbon Dioxide 23 mmol/L (22-29); Chloride 98 mmol/L (98-107); Globulin 4.6 g/dL (2.4-3.5); Glucose 471 mg/dL (70-105); Potassium 4.7 mmol/L (3.5-5.1); Protein, Total 8.5 g/dL (6.0-8.3); Sodium 132 mmol/L (136-145)
[2021-12-14] MEDS ORDERED: hydrOXYzine Pamoate 25 mg Capsule ONE (15:19)
[2021-12-14] MEDS ORDERED: Insulin Regular 300 UNITS/3 ML VIAL ONE (15:19)
[2021-12-14] MEDS ORDERED: hydrOXYzine 25 MG TAB ONE ×2 (15:26→15:28)
== END 2021-12-14 16:28 | disposition home or self-care (01) ==
LOC: ERS 11:41
DX: L29.9 Pruritus, unspecified (principal); E11.22 Type 2 diabetes mellitus with diabetic chronic kidney disease; I12.9 Hypertensive chronic kidney disease with stage 1 through stage 4 chronic kidney disease, or unspecified chronic kidney disease; N18.9 Chronic kidney disease, unspecified; I25.2 Old myocardial infarction; E78.5 Hyperlipidemia, unspecified; J44.9 Chronic obstructive pulmonary disease, unspecified; I25.10 Atherosclerotic heart disease of native coronary artery without angina pectoris; Z87.891 Personal history of nicotine dependence; Z79.82 Long term (current) use of aspirin; Z79.899 Other long term (current) drug therapy; Z79.4 Long term (current) use of insulin
CPT/HCPCS: 36415; 36416; 70450; 80053; 85025; 93005; 94760; 96361; 96374; J1815; Q0177

== ENCOUNTER 2022-01-05 14:21 | Emergency (ER) | payer OTHER ==
[2022-01-05 15:11] LABS: #Basophils 0.1 thou/uL (0.0-0.2); #Eosinphils 0.2 thou/uL (0.0-0.7); #Lymphocytes 2.4 thou/uL (1.20-3.40); #Monocytes 0.4 thou/uL (0.11-0.59); #Neutrophils 7.1 thou/uL (1.40-6.50); %Basophils 0.8 % (0.0-1.0); %Lymphocytes 23.1 % (21.0-51.0); %Monocytes 3.6 % (0.0-10.0); %Neutrophils 70.5 % (42.0-75.0); Hemoglobin 11.9 g/dL (14.0-18.0); Mean Corpuscular HGB CONC 34.2 g/dL (32.0-36.0); Mean Corpuscular Hemoglobin 27.3 pg (27.0-31.0); Mean Corpuscular Volume 79.8 fL (78.0-98.0); Mean Platelet Volume 8.2 fL (7.4-10.4); Platelet Count 383 thou/uL (130-400); RBC Distribution Width 13.8 % (11.5-14.5); Red Blood Cell (RBC) Count 4.35 mill/uL (4.70-6.10); White Blood Cell (WBC) Count 10.1 thou/uL (4.8-10.8)
[2022-01-05 15:35] LABS: ALT (SGPT) 28 U/L (8-55); AST (SGOT) 37 U/L (5-34); Albumin 3.4 g/dL (3.5-5.0); Alkaline Phosphatase 37 U/L (40-110); Anion Gap 19 mmol/L (10-20); BUN (Urea Nitrogen) 32 mg/dL (8.4-25.7); Bilirubin, Total 0.4 mg/dL (0.2-1.2); Calc. Creatinine Clearance 0 mL/min (70-130); Calcium 8.8 mg/dL (7.8-10.44); Carbon Dioxide 17 mmol/L (22-29); Chloride 100 mmol/L (98-107); Estimated GFR 24; Globulin 4.1 g/dL (2.4-3.5); Glucose 440 mg/dL (70-105); Lipase 80 U/L (8-78); Potassium 5.8 mmol/L (3.5-5.1); Protein, Total 7.5 g/dL (6.0-8.3); Sodium 130 mmol/L (136-145)
== END 2022-01-05 16:27 | disposition left against medical advice (07) ==
LOC: ERS 14:21
DX: L97.529 Non-pressure chronic ulcer of other part of left foot with unspecified severity (principal); E87.5 Hyperkalemia; E87.1 Hypo-osmolality and hyponatremia; Z79.82 Long term (current) use of aspirin; Z79.899 Other long term (current) drug therapy
CPT/HCPCS: 80053; 83605; 83690; 84484; 85025; 94760

== ENCOUNTER 2022-01-23 09:44 | Emergency (ER) | payer MEDICAID, OTHER ==
[2022-01-23 12:25] LABS: #Eosinphils 0.1 thou/uL (0.0-0.7); #Lymphocytes 2.2 thou/uL (1.20-3.40); #Monocytes 0.3 thou/uL (0.11-0.59); #Neutrophils 4.4 thou/uL (1.40-6.50); %Basophils 0.5 % (0.0-1.0); %Eosinophils 1.6 % (0.0-10.0); %Lymphocytes 31.4 % (21.0-51.0); %Monocytes 4.5 % (0.0-10.0); Hemoglobin 10.7 g/dL (14.0-18.0); Mean Corpuscular HGB CONC 33.2 g/dL (32.0-36.0); Mean Corpuscular Hemoglobin 25.7 pg (27.0-31.0); Mean Corpuscular Volume 77.6 fL (78.0-98.0); Mean Platelet Volume 7.2 fL (7.4-10.4); Platelet Count 431 thou/uL (130-400); RBC Distribution Width 13.7 % (11.5-14.5); Red Blood Cell (RBC) Count 4.15 mill/uL (4.70-6.10); White Blood Cell (WBC) Count 7.1 thou/uL (4.8-10.8)
[2022-01-23 12:43] LABS: ALT (SGPT) 16 U/L (8-55); AST (SGOT) 21 U/L (5-34); Albumin 3.3 g/dL (3.5-5.0); Alkaline Phosphatase 47 U/L (40-110); Anion Gap 15 mmol/L (10-20); BUN (Urea Nitrogen) 26 mg/dL (8.4-25.7); Bilirubin, Total 0.3 mg/dL (0.2-1.2); Calc. Creatinine Clearance 0 mL/min (70-130); Calcium 8.9 mg/dL (7.8-10.44); Carbon Dioxide 22 mmol/L (22-29); Chloride 105 mmol/L (98-107); Estimated GFR 37; Globulin 4.1 g/dL (2.4-3.5); Glucose 270 mg/dL (70-105); Potassium 5.6 mmol/L (3.5-5.1); Protein, Total 7.4 g/dL (6.0-8.3); Sodium 136 mmol/L (136-145)
[2022-01-23 13:38] LABS: #Eosinphils 0.1 thou/uL (0.0-0.7); #Lymphocytes 2.4 thou/uL (1.20-3.40); #Monocytes 0.3 thou/uL (0.11-0.59); #Neutrophils 4.5 thou/uL (1.40-6.50); %Basophils 0.5 % (0.0-1.0); %Eosinophils 1.9 % (0.0-10.0); %Lymphocytes 32.4 % (21.0-51.0); %Monocytes 3.9 % (0.0-10.0); %Neutrophils 61.2 % (42.0-75.0); Hemoglobin 11.2 g/dL (14.0-18.0); Mean Corpuscular HGB CONC 32.6 g/dL (32.0-36.0); Mean Corpuscular Hemoglobin 25.4 pg (27.0-31.0); Mean Corpuscular Volume 77.7 fL (78.0-98.0); Mean Platelet Volume 7.6 fL (7.4-10.4); Platelet Count 428 thou/uL (130-400); RBC Distribution Width 13.8 % (11.5-14.5); Red Blood Cell (RBC) Count 4.43 mill/uL (4.70-6.10); White Blood Cell (WBC) Count 7.4 thou/uL (4.8-10.8)
== END 2022-01-23 13:40 | disposition home or self-care (01) ==
LOC: ERS 09:44
DX: Z48.89 Encounter for other specified surgical aftercare (principal); E11.65 Type 2 diabetes mellitus with hyperglycemia; E78.5 Hyperlipidemia, unspecified; I10 Essential (primary) hypertension; J44.9 Chronic obstructive pulmonary disease, unspecified; Z87.891 Personal history of nicotine dependence; Z79.82 Long term (current) use of aspirin; Z79.4 Long term (current) use of insulin; Z79.899 Other long term (current) drug therapy
CPT/HCPCS: 36415; 36416; 80053; 85025; 86140

== ENCOUNTER 2022-03-06 19:30 | Emergency (ER) | payer MEDICARE, MEDICAID | END 2022-03-06 21:15 | disposition home or self-care (01) | LOC: ERS 19:30 | DX: T81.40XA Infection following a procedure, unspecified, initial encounter (principal); I10 Essential (primary) hypertension; J44.9 Chronic obstructive pulmonary disease, unspecified; E11.9 Type 2 diabetes mellitus without complications; Z95.0 Presence of cardiac pacemaker; Z87.891 Personal history of nicotine dependence ==

== ENCOUNTER 2022-04-16 18:46 | Inpatient (IN) | payer OTHER, MEDICAID ==
[2022-04-16 19:49] LABS: #Eosinphils 0.1 thou/uL (0.0-0.7); #Lymphocytes 1.7 thou/uL (1.20-3.40); #Monocytes 0.6 thou/uL (0.11-0.59); %Basophils 0.2 % (0.0-1.0); %Eosinophils 1.3 % (0.0-10.0); %Lymphocytes 17.6 % (21.0-51.0); %Monocytes 6.7 % (0.0-10.0); %Neutrophils 74.2 % (42.0-75.0); Hemoglobin 11.9 g/dL (14.0-18.0); Mean Corpuscular HGB CONC 32.7 g/dL (32.0-36.0); Mean Corpuscular Hemoglobin 25.9 pg (27.0-31.0); Mean Corpuscular Volume 79.3 fl (78.0-98.0); Mean Platelet Volume 7.6 fL (7.4-10.4); Platelet Count 383 thou/uL (130-400); RBC Distribution Width 13.8 % (11.5-14.5); Red Blood Cell (RBC) Count 4.58 mill/uL (4.70-6.10); White Blood Cell (WBC) Count 9.5 thou/uL (4.8-10.8)
[2022-04-16 20:12] LABS: Anion Gap 12 mmol/L (10-20); BUN (Urea Nitrogen) 30 mg/dL (8.4-25.7); Calc. Creatinine Clearance 0 mL/min (70-130); Carbon Dioxide 22 mmol/L (22-29); Chloride 102 mmol/L (98-107); Potassium 4.8 mmol/L (3.5-5.1); Sodium 131 mmol/L (136-145)
[2022-04-16 20:13] LABS: ALT (SGPT) 11 U/L (8-55); AST (SGOT) 12 U/L (5-34); Albumin 3.5 g/dL (3.5-5.0); Alkaline Phosphatase 42 U/L (40-110); Bilirubin, Total 0.5 mg/dL (0.2-1.2); Calcium 8.6 mg/dL (7.8-10.44); Estimated GFR 28; Globulin 3.6 g/dL (2.4-3.5); Glucose 349 mg/dL (70-105); Protein, Total 7.1 g/dL (6.0-8.3)
[2022-04-16 23:15] LABS: Bacteria/HPF None Seen HPF (None Seen); Bilirubin Negative (Negative); Blood, Urine 1+ (Negative); Clarity Clear (Clear); Glucose, Urine (Dipstick) Greater than 1000 mg/dL (Negative); Ketone, Urine Negative (Negative); Leukocyte Negative Leu/uL (Negative); Nitrite Negative (Negative); Protein, Urine (Dipstick) 200 mg/dL (Neg-Trace); RBC/HPF 0-3 HPF (0-3); Specific Gravity, Urine 1.017 (1.002-1.036); Squamous Epithelial 0-3 HPF (0-3); Urobilinogen Normal mg/dL (Less than 2); WBC/HPF 0-3 HPF (0-3); pH, Urine 6.5 (5.0-9.0)
[2022-04-16 23:50] VITALS: BMI 24.4
[2022-04-17] MEDS ORDERED: Acetaminophen 325 MG Suppository PR PRN (00:04)
[2022-04-17] MEDS ORDERED: HumaLOG 300 UNITS/3 ML VIAL SC PRN (00:04)
[2022-04-17] MEDS ORDERED: Ondansetron PF 4 MG/2 ML Vial IVP PRN (00:04)
[2022-04-17] MEDS ORDERED: Dextrose 50% Abboject 50 ML SYRINGE SLOW IVP PRN (00:04)
[2022-04-17] MEDS ORDERED: Ondansetron ODT 4 MG TAB PO PRN (00:04)
[2022-04-17] MEDS ORDERED: Dextrose 5% in Water 1,000 ML IV PRN (00:04)
[2022-04-17] MEDS ORDERED: Acetaminophen 325 MG TAB PO PRN (00:04)
[2022-04-17] MEDS ORDERED: cefTRIAXone\\ROCEPHIN 1 GM in Sodium Chloride 0.9% 100 ML IVPB SCH (02:00)
[2022-04-17 04:53] LABS: #Basophils 0.1 thou/uL (0.0-0.2); #Eosinphils 0.1 thou/uL (0.0-0.7); #Monocytes 0.5 thou/uL (0.11-0.59); #Neutrophils 6.6 thou/uL (1.40-6.50); %Basophils 0.9 % (0.0-1.0); %Eosinophils 1.2 % (0.0-10.0); %Lymphocytes 21.8 % (21.0-51.0); %Monocytes 5.5 % (0.0-10.0); %Neutrophils 70.6 % (42.0-75.0); Hemoglobin 11.1 g/dL (14.0-18.0); Mean Corpuscular HGB CONC 32.7 g/dL (32.0-36.0); Mean Corpuscular Hemoglobin 26.1 pg (27.0-31.0); Mean Platelet Volume 7.9 fL (7.4-10.4); Platelet Count 398 thou/uL (130-400); RBC Distribution Width 13.9 % (11.5-14.5); Red Blood Cell (RBC) Count 4.25 mill/uL (4.70-6.10); White Blood Cell (WBC) Count 9.3 thou/uL (4.8-10.8)
[2022-04-17] MEDS: HumaLOG 300 UNITS/3 ML VIAL SC PRN ×2 (05:53→16:21)
[2022-04-17 05:59] LABS: ALT (SGPT) 11 U/L (8-55); AST (SGOT) 11 U/L (5-34); Albumin 3.4 g/dL (3.5-5.0); Alkaline Phosphatase 39 U/L (40-110); Anion Gap 11 mmol/L (10-20); BUN (Urea Nitrogen) 28 mg/dL (8.4-25.7); Bilirubin, Total 0.5 mg/dL (0.2-1.2); Calc. Creatinine Clearance 33 mL/min (70-130); Carbon Dioxide 24 mmol/L (22-29); Chloride 103 mmol/L (98-107); Estimated GFR 29; Globulin 4.2 g/dL (2.4-3.5); Glucose 178 mg/dL (70-105); Potassium 4.1 mmol/L (3.5-5.1); Protein, Total 7.6 g/dL (6.0-8.3); Sodium 134 mmol/L (136-145)
[2022-04-17] MEDS: Enoxaparin Sodium 40 MG/0.4 ML SYRINGE SC SCH (09:43)
[2022-04-17] MEDS ORDERED: Simethicone Chewable 80 MG TAB PO PRN (17:25)
[2022-04-17] MEDS ORDERED: Piperacillin/Tazobactam 3.375 GM in Sodium Chloride 0.9% 100 ML IVPB SCH (20:00)
[2022-04-17] MEDS ORDERED: Vancomycin 1.5 GRAM/300 ML BAG 1 GM in Premix Bag 1 BAG IVPB SCH (20:15)
[2022-04-17] MEDS: HYDROcodone/Acetaminophen 5/325 mg Tablet PO PRN (20:18)
[2022-04-17] MEDS: Carvedilol 3.125 MG TAB PO SCH (20:19)
[2022-04-17] MEDS: Insulin Glargine 30 UNITS/0.3 ML VIAL SC SCH (20:20)
[2022-04-17] MEDS: Fenofibrate Nanocrystallized 145 MG TAB PO SCH (20:20)
[2022-04-17] MEDS: Midodrine HCl 5 MG TAB PO SCH ×2 (20:21→22:59)
[2022-04-17] MEDS ORDERED: Vancomycin 1 GM in Premix Bag 1 BAG IVPB SCH (21:15)
[2022-04-18] MEDS: Piperacillin/Tazobactam 3.375 GM in Sodium Chloride 0.9% 100 ML IVPB SCH ×3 (00:24→15:08)
[2022-04-18] MEDS: Atorvastatin Calcium 40 MG TAB PO SCH (08:03)
[2022-04-18] MEDS: Midodrine HCl 5 MG TAB PO SCH ×3 (08:03→21:41)
[2022-04-18] MEDS: Aspirin Chewable 81 MG TAB PO SCH (08:03)
[2022-04-18] MEDS: HYDROcodone/Acetaminophen 5/325 mg Tablet PO PRN (08:04)
[2022-04-18] MEDS: Insulin Glargine 30 UNITS/0.3 ML VIAL SC SCH ×2 (08:05→21:34)
[2022-04-18] MEDS: Carvedilol 3.125 MG TAB PO SCH ×3 (08:05→21:34)
[2022-04-18] MEDS: Enoxaparin Sodium 40 MG/0.4 ML SYRINGE SC SCH (08:07)
[2022-04-18] MEDS: HumaLOG 300 UNITS/3 ML VIAL SC PRN ×2 (12:01→16:35)
[2022-04-18] MEDS: Fenofibrate Nanocrystallized 145 MG TAB PO SCH (21:34)
[2022-04-19] MEDS: Piperacillin/Tazobactam 3.375 GM in Sodium Chloride 0.9% 100 ML IVPB SCH ×4 (00:01→23:51)
[2022-04-19] MEDS: Dextrose 5 % And 0.9 % NaCl 1,000 ML IV SCH ×2 (08:35→23:52)
[2022-04-19] MEDS: Atorvastatin Calcium 40 MG TAB PO SCH (08:36)
[2022-04-19] MEDS: Insulin Glargine 30 UNITS/0.3 ML VIAL SC SCH ×2 (08:36→20:43)
[2022-04-19] MEDS: Midodrine HCl 5 MG TAB PO SCH ×3 (08:36→20:43)
[2022-04-19] MEDS: Carvedilol 3.125 MG TAB PO SCH ×3 (08:36→20:43)
[2022-04-19] MEDS: Enoxaparin Sodium 40 MG/0.4 ML SYRINGE SC SCH (08:36)
[2022-04-19] MEDS: Aspirin Chewable 81 MG TAB PO SCH (08:36)
[2022-04-19] MEDS ORDERED: Lidocaine 1% (PF) 30 ML VIAL FS SCH (14:45)
[2022-04-19] MEDS: Fenofibrate Nanocrystallized 145 MG TAB PO SCH (20:43)
[2022-04-20] MEDS: Midodrine HCl 5 MG TAB PO SCH (08:34)
[2022-04-20] MEDS: Carvedilol 3.125 MG TAB PO SCH (08:34)
[2022-04-20] MEDS: Insulin Glargine 30 UNITS/0.3 ML VIAL SC SCH (08:34)
[2022-04-20] MEDS: Aspirin Chewable 81 MG TAB PO SCH (08:34)
[2022-04-20] MEDS: Piperacillin/Tazobactam 3.375 GM in Sodium Chloride 0.9% 100 ML IVPB SCH (08:34)
[2022-04-20] MEDS: Atorvastatin Calcium 40 MG TAB PO SCH (08:34)
[2022-04-20] MEDS: Enoxaparin Sodium 40 MG/0.4 ML SYRINGE SC SCH (08:35)
[2022-04-20 13:02] VITALS: BP 145/80; TEMP 97.3
== END 2022-04-20 13:24 | disposition home or self-care (01) | DRG 603 ==
LOC: ERS 18:46 → 2NO 22:43 → OBSVTOIN 04-17 18:42
PROVIDERS: ADMIT Internal Medicine; ATTEND Internal Medicine
PROC: 0H98XZZ Drainage of Buttock Skin, External Approach (ICD-10-PCS; principal; 2022-04-19)
DX: L05.01 Pilonidal cyst with abscess (principal); Z20.822 Contact with and (suspected) exposure to COVID-19; E87.1 Hypo-osmolality and hyponatremia; L03.116 Cellulitis of left lower limb; I13.0 Hypertensive heart and chronic kidney disease with heart failure and stage 1 through stage 4 chronic kidney disease, or unspecified chronic kidney disease; I50.22 Chronic systolic (congestive) heart failure; E11.628 Type 2 diabetes mellitus with other skin complications; E11.51 Type 2 diabetes mellitus with diabetic peripheral angiopathy without gangrene; E88.09 Other disorders of plasma-protein metabolism, not elsewhere classified; E11.22 Type 2 diabetes mellitus with diabetic chronic kidney disease; N18.9 Chronic kidney disease, unspecified; J44.9 Chronic obstructive pulmonary disease, unspecified; E78.5 Hyperlipidemia, unspecified; M54.50 Low back pain, unspecified; N18.30 Chronic kidney disease, stage 3 unspecified; E11.42 Type 2 diabetes mellitus with diabetic polyneuropathy; I25.10 Atherosclerotic heart disease of native coronary artery without angina pectoris; Z89.432 Acquired absence of left foot; Z95.810 Presence of automatic (implantable) cardiac defibrillator; Z79.899 Other long term (current) drug therapy; Z79.82 Long term (current) use of aspirin; Z79.4 Long term (current) use of insulin; Z79.84 Long term (current) use of oral hypoglycemic drugs; Z90.49 Acquired absence of other specified parts of digestive tract; Z89.412 Acquired absence of left great toe
CPT/HCPCS: 36415; 36416; 78315; 80053; 81003; 81015; 85025; 85652; 86140; 87070; 87077; 87186; 87205; 93306; 93923; 96372; 96374; A9503; G0378; J0696; J1650; J1815; J2405; J2543; J3370; J3490; J7042; U0003; U0005

== ENCOUNTER 2022-05-17 02:57 | Inpatient (IN) | payer OTHER, MEDICAID ==
[2022-05-17 03:49] LABS: #Basophils 0.1 thou/uL (0.0-0.2); #Eosinphils 0.2 thou/uL (0.0-0.7); #Lymphocytes 1.5 thou/uL (1.20-3.40); #Monocytes 0.5 thou/uL (0.11-0.59); %Eosinophils 2.5 % (0.0-10.0); %Lymphocytes 18.4 % (21.0-51.0); %Monocytes 5.4 % (0.0-10.0); %Neutrophils 72.7 % (42.0-75.0); Hemoglobin 10.6 g/dL (14.0-18.0); Mean Corpuscular HGB CONC 32.6 g/dL (32.0-36.0); Mean Corpuscular Hemoglobin 26.2 pg (27.0-31.0); Mean Corpuscular Volume 80.2 fl (78.0-98.0); Mean Platelet Volume 7.9 fL (7.4-10.4); Platelet Count 385 10x3/uL (130-400); RBC Distribution Width 15.4 % (11.5-14.5); Red Blood Cell (RBC) Count 4.03 mill/uL (4.70-6.10); White Blood Cell (WBC) Count 8.3 10x3/uL (4.8-10.8)
[2022-05-17 04:02] LABS: Bilirubin Negative (Negative); Blood, Urine 2+ (Negative); Clarity Clear (Clear); Glucose, Urine (Dipstick) 50 mg/dL (Negative); Ketone, Urine Negative (Negative); Leukocyte 75 Leu/uL (Negative); Nitrite Negative (Negative); Protein, Urine (Dipstick) 100 mg/dL (Neg-Trace); RBC/HPF 0-3 HPF (0-3); Specific Gravity, Urine 1.007 (1.002-1.036); Squamous Epithelial 0-3 HPF (0-3); Urobilinogen Normal mg/dL (Less than 2)
[2022-05-17 04:09] LABS: ALT (SGPT) 20 U/L (8-55); AST (SGOT) 31 U/L (5-34); Alkaline Phosphatase 24 U/L (40-110); Anion Gap 17 mmol/L (10-20); BUN (Urea Nitrogen) 68 mg/dL (8.4-25.7); Bilirubin, Total 0.6 mg/dL (0.2-1.2); Calc. Creatinine Clearance 0 mL/min (70-130); Calcium 7.9 mg/dL (7.8-10.44); Carbon Dioxide 17 mmol/L (22-29); Chloride 107 mmol/L (98-107); Estimated GFR 8; Globulin 3.5 g/dL (2.4-3.5); Glucose 71 mg/dL (70-105); Potassium 4.4 mmol/L (3.5-5.1); Protein, Total 7.5 g/dL (6.0-8.3); Sodium 137 mmol/L (136-145)
[2022-05-17 04:22] LABS: Bacteria/HPF 1+ HPF (None Seen)
[2022-05-17 04:24] LABS: WBC/HPF 0-3 HPF (0-3)
[2022-05-17] MEDS ORDERED: Sodium Chloride 0.9% 1,000 ML IV SCH (05:30)
[2022-05-17] MEDS ORDERED: Nitroglycerin 0.4 MG TAB (25 Tab Bottle) SL PRN (07:44)
[2022-05-17] MEDS ORDERED: Acetaminophen 325 MG TAB PO PRN (07:44)
[2022-05-17] MEDS ORDERED: Ondansetron PF 4 MG/2 ML Vial IVP PRN (07:44)
[2022-05-17 08:54] LABS: Troponin I 0.033 ng/mL (< 0.028)
[2022-05-17] MEDS ORDERED: Metoprolol Tartrate 25 MG TAB PO SCH (09:00)
[2022-05-17] MEDS: Heparin 5,000 UNITS/ML VIAL SC SCH ×3 (10:46→20:31)
[2022-05-17] MEDS: Aspirin Chewable 81 MG TAB PO SCH (10:46)
[2022-05-17 11:30] VITALS: BMI 24.6
[2022-05-17 12:34] LABS: Troponin I 0.029 ng/mL (< 0.028)
[2022-05-17] MEDS ORDERED: FLU VACC QS2022-23(6MOS UP)/PF 60 MCG/0.5 ML SYRINGE IM ONE (12:45)
[2022-05-17 13:40] LABS: Anion Gap 17 mmol/L (10-20); BUN (Urea Nitrogen) 65 mg/dL (8.4-25.7); Calc. Creatinine Clearance 13 mL/min (70-130); Calcium 8.1 mg/dL (7.8-10.44); Carbon Dioxide 17 mmol/L (22-29); Chloride 109 mmol/L (98-107); Estimated GFR 9; Glucose 64 mg/dL (70-105); Potassium 4.5 mmol/L (3.5-5.1); Sodium 138 mmol/L (136-145)
[2022-05-17 17:07] LABS: Creatinine, Urine 30.65 mg/dL (63-166)
[2022-05-18 05:11] LABS: Cardiac Risk 5.7 (Less than 4.5)
[2022-05-18] MEDS: Heparin 5,000 UNITS/ML VIAL SC SCH ×3 (09:39→21:31)
[2022-05-18] MEDS: Aspirin Chewable 81 MG TAB PO SCH (09:39)
[2022-05-18] MEDS ORDERED: Regadenoson 0.4 MG/5 ML SYRINGE ONE (13:49)
[2022-05-18] MEDS: Icosapent Ethyl 1 GM CAPSULE FS SCH (16:39)
[2022-05-18] MEDS: Sodium Bicarbonate Tab 325 MG TAB PO SCH (21:30)
[2022-05-18] MEDS: Carvedilol 3.125 MG TAB PO SCH (21:30)
[2022-05-18] MEDS: Gabapentin 300 MG CAP PO SCH (21:30)
[2022-05-18] MEDS: Midodrine HCl 5 MG TAB PO SCH (21:30)
[2022-05-18] MEDS: Fenofibrate Nanocrystallized 145 MG TAB PO SCH (21:30)
[2022-05-19 05:25] LABS: Anion Gap 15 mmol/L (10-20); BUN (Urea Nitrogen) 66 mg/dL (8.4-25.7); Calc. Creatinine Clearance 13 mL/min (70-130); Calcium 8.5 mg/dL (7.8-10.44); Carbon Dioxide 17 mmol/L (22-29); Chloride 109 mmol/L (98-107); Estimated GFR 9; Glucose 81 mg/dL (70-105); Potassium 5.4 mmol/L (3.5-5.1); Sodium 136 mmol/L (136-145)
[2022-05-19] MEDS: Icosapent Ethyl 1 GM CAPSULE FS SCH ×2 (09:39→17:22)
[2022-05-19] MEDS: Aspirin Chewable 81 MG TAB PO SCH (09:39)
[2022-05-19] MEDS: Midodrine HCl 5 MG TAB PO SCH ×3 (09:40→19:51)
[2022-05-19] MEDS: Gabapentin 300 MG CAP PO SCH ×2 (09:40→19:51)
[2022-05-19] MEDS: Atorvastatin Calcium 40 MG TAB PO SCH (09:40)
[2022-05-19] MEDS: Sodium Bicarbonate Tab 325 MG TAB PO SCH (09:40)
[2022-05-19] MEDS: Carvedilol 3.125 MG TAB PO SCH ×3 (09:40→19:52)
[2022-05-19] MEDS: Heparin 5,000 UNITS/ML VIAL SC SCH ×3 (09:42→19:51)
[2022-05-19] MEDS ORDERED: Sodium Bicarbonate 150 MEQ in Dextrose 5% in Water 1,000 ML IV SCH (11:15)
[2022-05-19] MEDS ORDERED: Tuberculin PPD 0.1 ML VIAL I-DERMAL SCH ×2 (13:15)
[2022-05-19] MEDS: Fenofibrate Nanocrystallized 145 MG TAB PO SCH (19:51)
[2022-05-20 05:01] LABS: #Basophils 0.1 thou/uL (0.0-0.2); #Eosinphils 0.1 thou/uL (0.0-0.7); #Lymphocytes 1.5 thou/uL (1.20-3.40); #Monocytes 0.4 thou/uL (0.11-0.59); #Neutrophils 4.5 thou/uL (1.40-6.50); %Basophils 1.4 % (0.0-1.0); %Lymphocytes 22.4 % (21.0-51.0); %Monocytes 5.6 % (0.0-10.0); %Neutrophils 68.7 % (42.0-75.0); Hemoglobin 9.8 g/dL (14.0-18.0); Mean Corpuscular HGB CONC 32.3 g/dL (32.0-36.0); Mean Corpuscular Hemoglobin 26.1 pg (27.0-31.0); Mean Corpuscular Volume 80.5 fl (78.0-98.0); Mean Platelet Volume 8.1 fL (7.4-10.4); Platelet Count 376 10x3/uL (130-400); RBC Distribution Width 15.7 % (11.5-14.5); Red Blood Cell (RBC) Count 3.77 mill/uL (4.70-6.10); White Blood Cell (WBC) Count 6.6 10x3/uL (4.8-10.8)
[2022-05-20 05:03] LABS: Phosphorus 5.8 mg/dL (2.3-4.7)
[2022-05-20 05:05] LABS: Prothrombin Time 13.3 sec (12.0-14.7)
[2022-05-20 05:06] LABS: PTT 33.1 sec (22.9-36.1)
[2022-05-20 05:14] LABS: Anion Gap 15 mmol/L (10-20); BUN (Urea Nitrogen) 63 mg/dL (8.4-25.7); Calc. Creatinine Clearance 13 mL/min (70-130); Calcium 8.3 mg/dL (7.8-10.44); Carbon Dioxide 19 mmol/L (22-29); Chloride 104 mmol/L (98-107); Estimated GFR 10; Glucose 280 mg/dL (70-105); Potassium 4.6 mmol/L (3.5-5.1); Sodium 133 mmol/L (136-145)
[2022-05-20] MEDS: Heparin 5,000 UNITS/ML VIAL SC SCH ×3 (09:04→22:44)
[2022-05-20] MEDS: Gabapentin 300 MG CAP PO SCH ×2 (09:07→22:43)
[2022-05-20] MEDS: Atorvastatin Calcium 40 MG TAB PO SCH (09:07)
[2022-05-20] MEDS: Aspirin Chewable 81 MG TAB PO SCH (09:07)
[2022-05-20] MEDS: Midodrine HCl 5 MG TAB PO SCH ×3 (09:08→22:43)
[2022-05-20] MEDS: Icosapent Ethyl 1 GM CAPSULE FS SCH ×2 (09:08→16:58)
[2022-05-20] MEDS: Carvedilol 3.125 MG TAB PO SCH ×3 (09:09→22:43)
[2022-05-20] MEDS ORDERED: FENTANYL 50 MCG/ML 1 ML VIAL ONE (13:41)
[2022-05-20] MEDS ORDERED: Midazolam HCl 2 mg/2 ml Vial ONE (13:41)
[2022-05-20] MEDS ORDERED: Ropivacaine 0.5% HCl/PF (150 MG/30 ML VIAL) ONE (13:42)
[2022-05-20] MEDS ORDERED: Protamine Sulfate 250 MG/25 ML VIAL ONE (14:04)
[2022-05-20] MEDS ORDERED: Heparin 10,000 UNITS/ 10 ML VIAL ONE (14:04)
[2022-05-20] MEDS ORDERED: Lidocaine 1% (PF) 30 ML VIAL ONE (14:04)
[2022-05-20] MEDS ORDERED: Protamine Sulfate 50 MG/5 ML VIAL ONE (14:04)
[2022-05-20] MEDS ORDERED: Heparin 5,000 UNITS/ML VIAL ONE (14:04)
[2022-05-20] MEDS ORDERED: Bupivacaine HCl 0.5%/Epinephrine 1:200,000/PF 30 ml Vial ONE (14:04)
[2022-05-20] MEDS ORDERED: Dexmedetomidine 200 MCG/2 ML VIAL ONE (14:08)
[2022-05-20] MEDS ORDERED: fentaNYL PF 100 MCG/2 ML SYRINGE ONE (14:08)
[2022-05-20] MEDS ORDERED: SUGAMMADEX SODIUM 200 MG/2 ML VIAL ONE (14:09)
[2022-05-20] MEDS ORDERED: CEFAZOLIN 2 GM in Sodium Chloride 0.9% 100 ML IVPB SCH (14:15)
[2022-05-20] MEDS ORDERED: ePHEDrine 50 MG/ML VIAL ONE (14:45)
[2022-05-20 15:57] LABS: HBSAB Concentration Less than 8.00 mIU/mL; HBSAg Index 0.29 S/CO (0-0.99); Hep B Core Total Ab Non-Reactive (NonReactive); Hep B Core Total Index 0.11 S/CO (0-0.79); Hep B Surf AB Non-Reactive (NonReactive); Hep B Surf Ag Non-Reactive S/CO (NonReactive); Hep C IgG Ab Non-Reactive (NonReactive); Hep C Index 0.11 S/CO (0-0.79)
[2022-05-20] MEDS ORDERED: Promethazine HCl 25 MG/ML VIAL IM PRN (17:20)
[2022-05-20] MEDS ORDERED: Promethazine HCl 25 MG/ML VIAL IVPB PRN (17:20)
[2022-05-20] MEDS ORDERED: Ondansetron HCl/PF 4 MG/2 ML Vial IVP PRN (17:20)
[2022-05-20] MEDS ORDERED: Dextrose 50% Abboject 50 ML SYRINGE SLOW IVP PRN (21:12)
[2022-05-20] MEDS ORDERED: Dextrose 5% in Water 1,000 ML IV PRN (21:12)
[2022-05-20] MEDS: traMADol HCl 50 MG TAB PO PRN (22:41)
[2022-05-20] MEDS: Fenofibrate Nanocrystallized 145 MG TAB PO SCH (22:44)
[2022-05-21 00:54] LABS: HBSAB Concentration Less than 8.00 mIU/mL; HBSAg Index 0.29 S/CO (0-0.99); Hep B Surf AB Non-Reactive (NonReactive); Hep B Surf Ag Non-Reactive S/CO (NonReactive)
[2022-05-21 01:12] LABS: HBCM Index 0.09 S/CO (0-0.79); HBSAB Concentration Less than 8.00 mIU/mL; Hep B Core Total Ab Non-Reactive (NonReactive); Hep B Core Total Index 0.14 S/CO (0-0.79); Hep B Surf AB Non-Reactive (NonReactive); Hep B Surf Ag Non-Reactive S/CO (NonReactive); Hep C IgG Ab Non-Reactive (NonReactive); Hepatitis B Core IgM Abs Non-Reactive (NonReactive)
[2022-05-21 04:57] LABS: Hemoglobin A1c 9.6 % (4.0-6.0)
[2022-05-21 05:13] LABS: Anion Gap 12 mmol/L (10-20); BUN (Urea Nitrogen) 34 mg/dL (8.4-25.7); Calc. Creatinine Clearance 20 mL/min (70-130); Carbon Dioxide 25 mmol/L (22-29); Chloride 102 mmol/L (98-107); Estimated GFR 15; Glucose 187 mg/dL (70-105); Sodium 135 mmol/L (136-145)
[2022-05-21] MEDS ORDERED: Tuberculin PPD 0.1 ML VIAL I-DERMAL SCH (09:45)
[2022-05-21] MEDS: Gabapentin 300 MG CAP PO SCH ×2 (09:49→20:29)
[2022-05-21] MEDS: Atorvastatin Calcium 40 MG TAB PO SCH (09:49)
[2022-05-21] MEDS: Carvedilol 3.125 MG TAB PO SCH (09:50)
[2022-05-21] MEDS: Heparin 5,000 UNITS/ML VIAL SC SCH ×3 (09:50→20:30)
[2022-05-21] MEDS: Aspirin Chewable 81 MG TAB PO SCH (09:50)
[2022-05-21] MEDS: EPOETIN ALFA-EPBX (ESRD) 10,000 UNIT/ML VIAL IVP SCH (09:51)
[2022-05-21] MEDS: Midodrine HCl 5 MG TAB PO SCH ×3 (09:56→20:46)
[2022-05-21] MEDS: Icosapent Ethyl 1 GM CAPSULE FS SCH ×2 (09:57→15:55)
[2022-05-21] MEDS: HumaLOG 300 UNITS/3 ML VIAL SC PRN ×2 (11:48→21:35)
[2022-05-21] MEDS: traMADol HCl 50 MG TAB PO PRN (20:30)
[2022-05-21] MEDS: Fenofibrate Nanocrystallized 145 MG TAB PO SCH (20:30)
[2022-05-22 04:13] LABS: Hep B Surface AG-Rflx Sendout Negative (Negative); Hepatitis B Core Total Negative (Negative); Hepatitis B Surface AB-Sendout Non Reactive (.)
[2022-05-22] MEDS: Gabapentin 300 MG CAP PO SCH ×2 (08:44→20:39)
[2022-05-22] MEDS: Atorvastatin Calcium 40 MG TAB PO SCH (08:44)
[2022-05-22] MEDS: Midodrine HCl 5 MG TAB PO SCH ×3 (08:44→20:39)
[2022-05-22] MEDS: Icosapent Ethyl 1 GM CAPSULE FS SCH ×2 (08:44→16:50)
[2022-05-22] MEDS: Aspirin Chewable 81 MG TAB PO SCH (08:45)
[2022-05-22] MEDS: Heparin 5,000 UNITS/ML VIAL SC SCH ×3 (08:45→20:41)
[2022-05-22] MEDS ORDERED: Heparin 10,000 UNITS/ 10 ML VIAL ONE (09:56)
[2022-05-22] MEDS ORDERED: Senokot S 8.6-50 MG TAB PO SCH (11:00)
[2022-05-22] MEDS: EPOETIN ALFA-EPBX (ESRD) 10,000 UNIT/ML VIAL IVP SCH (12:30)
[2022-05-22] MEDS: HumaLOG 300 UNITS/3 ML VIAL SC PRN ×2 (12:30→20:44)
[2022-05-22 13:08] LABS: #Eosinphils 0.2 thou/uL (0.0-0.7); #Lymphocytes 1.8 thou/uL (1.20-3.40); #Monocytes 0.5 thou/uL (0.11-0.59); #Neutrophils 5.5 thou/uL (1.40-6.50); %Basophils 0.6 % (0.0-1.0); %Eosinophils 2.2 % (0.0-10.0); %Lymphocytes 22.3 % (21.0-51.0); %Monocytes 5.9 % (0.0-10.0); %Neutrophils 68.9 % (42.0-75.0); Hemoglobin 9.7 g/dL (14.0-18.0); Mean Corpuscular Hemoglobin 26.8 pg (27.0-31.0); Mean Corpuscular Volume 81.1 fl (78.0-98.0); Mean Platelet Volume 7.9 fL (7.4-10.4); Platelet Count 296 10x3/uL (130-400); RBC Distribution Width 15.6 % (11.5-14.5); Red Blood Cell (RBC) Count 3.61 mill/uL (4.70-6.10); White Blood Cell (WBC) Count 7.9 10x3/uL (4.8-10.8)
[2022-05-22 13:25] LABS: Anion Gap 14 mmol/L (10-20); BUN (Urea Nitrogen) 43 mg/dL (8.4-25.7); Calc. Creatinine Clearance 17 mL/min (70-130); Calcium 8.7 mg/dL (7.8-10.44); Carbon Dioxide 22 mmol/L (22-29); Chloride 95 mmol/L (98-107); Estimated GFR 13; Glucose 265 mg/dL (70-105); Potassium 4.2 mmol/L (3.5-5.1); Sodium 127 mmol/L (136-145)
[2022-05-22] MEDS ORDERED: Midodrine HCl 5 MG TAB PO SCH (17:30)
[2022-05-22] MEDS: Fenofibrate Nanocrystallized 145 MG TAB PO SCH (20:39)
[2022-05-22] MEDS: Senokot S 8.6-50 MG TAB PO SCH (20:39)
[2022-05-22] MEDS: Insulin Glargine 30 UNITS/0.3 ML VIAL SC SCH (20:40)
[2022-05-23 05:07] LABS: Anion Gap 10 mmol/L (10-20); BUN (Urea Nitrogen) 21 mg/dL (8.4-25.7); Calc. Creatinine Clearance 25 mL/min (70-130); Calcium 8.3 mg/dL (7.8-10.44); Carbon Dioxide 28 mmol/L (22-29); Chloride 101 mmol/L (98-107); Estimated GFR 21; Glucose 165 mg/dL (70-105); Potassium 4.1 mmol/L (3.5-5.1); Sodium 135 mmol/L (136-145)
[2022-05-23] MEDS: HumaLOG 300 UNITS/3 ML VIAL SC PRN ×2 (06:03→17:17)
[2022-05-23] MEDS: Senokot S 8.6-50 MG TAB PO SCH ×2 (08:36→20:52)
[2022-05-23] MEDS: Atorvastatin Calcium 40 MG TAB PO SCH (08:37)
[2022-05-23] MEDS: Midodrine HCl 5 MG TAB PO SCH ×3 (08:37→20:53)
[2022-05-23] MEDS: Aspirin Chewable 81 MG TAB PO SCH (08:37)
[2022-05-23] MEDS: Gabapentin 300 MG CAP PO SCH ×2 (08:37→20:52)
[2022-05-23] MEDS: Icosapent Ethyl 1 GM CAPSULE FS SCH ×2 (08:37→17:49)
[2022-05-23] MEDS: Insulin Glargine 30 UNITS/0.3 ML VIAL SC SCH ×2 (08:38→20:53)
[2022-05-23] MEDS: Heparin 5,000 UNITS/ML VIAL SC SCH ×3 (08:42→20:55)
[2022-05-23] MEDS ORDERED: READ PPD TEST SITE PO SCH (10:00)
[2022-05-23 17:13] LABS: HBV as IU/mL HBV DNA not detected IU/mL (.)
[2022-05-23] MEDS: Carvedilol 3.125 MG TAB PO SCH (17:18)
[2022-05-23] MEDS: Fenofibrate Nanocrystallized 145 MG TAB PO SCH (20:53)
[2022-05-24 04:56] LABS: Anion Gap 16 mmol/L (10-20); BUN (Urea Nitrogen) 30 mg/dL (8.4-25.7); Calc. Creatinine Clearance 20 mL/min (70-130); Calcium 8.7 mg/dL (7.8-10.44); Carbon Dioxide 25 mmol/L (22-29); Chloride 99 mmol/L (98-107); Estimated GFR 15; Glucose 100 mg/dL (70-105); Potassium 3.5 mmol/L (3.5-5.1); Sodium 136 mmol/L (136-145)
[2022-05-24] MEDS ORDERED: Heparin 10,000 UNITS/ 10 ML VIAL ONE (08:46)
[2022-05-24] MEDS: Heparin 5,000 UNITS/ML VIAL SC SCH ×3 (12:20→21:32)
[2022-05-24] MEDS: Aspirin Chewable 81 MG TAB PO SCH (12:20)
[2022-05-24] MEDS: Carvedilol 3.125 MG TAB PO SCH ×2 (12:20→18:32)
[2022-05-24] MEDS: Atorvastatin Calcium 40 MG TAB PO SCH (12:21)
[2022-05-24] MEDS: Gabapentin 300 MG CAP PO SCH ×2 (12:21→21:24)
[2022-05-24] MEDS: Insulin Glargine 30 UNITS/0.3 ML VIAL SC SCH ×2 (12:23→21:26)
[2022-05-24] MEDS: Midodrine HCl 5 MG TAB PO SCH ×3 (12:24→21:25)
[2022-05-24] MEDS: Senokot S 8.6-50 MG TAB PO SCH ×2 (12:25→21:26)
[2022-05-24] MEDS: EPOETIN ALFA-EPBX (ESRD) 10,000 UNIT/ML VIAL IVP SCH (13:12)
[2022-05-24] MEDS: Icosapent Ethyl 1 GM CAPSULE FS SCH ×2 (15:07→18:32)
[2022-05-24 15:37] LABS: Hep C PCR-Quant HCV Not Detected IU/mL (.)
[2022-05-24] MEDS: Fenofibrate Nanocrystallized 145 MG TAB PO SCH (21:24)
[2022-05-24] MEDS: HumaLOG 300 UNITS/3 ML VIAL SC PRN (21:29)
[2022-05-24 23:46] VITALS: BP 113/64; TEMP 97.8
== END 2022-05-24 21:45 | disposition home or self-care (01) | DRG 674 ==
LOC: ERS 02:57 → 2NO 07:29
PROVIDERS: ADMIT Internal Medicine; ATTEND Family Medicine
PROC: 0JH63XZ Insertion of Tunneled Vascular Access Device into Chest Subcutaneous Tissue and Fascia, Percutaneous Approach (ICD-10-PCS; principal; 2022-05-20)
PROC: 03150JD Bypass Right Axillary Artery to Upper Arm Vein with Synthetic Substitute, Open Approach (ICD-10-PCS; 2022-05-20)
PROC: 05JY0ZZ Inspection of Upper Vein, Open Approach (ICD-10-PCS; 2022-05-20)
PROC: 02HV33Z Insertion of Infusion Device into Superior Vena Cava, Percutaneous Approach (ICD-10-PCS; 2022-05-20)
PROC: 5A1D70Z Performance of Urinary Filtration, Intermittent, Less than 6 Hours Per Day (ICD-10-PCS; 2022-05-20)
DX: E11.22 Type 2 diabetes mellitus with diabetic chronic kidney disease (principal); E87.20 Acidosis, unspecified; N18.6 End stage renal disease; I50.32 Chronic diastolic (congestive) heart failure; N17.9 Acute kidney failure, unspecified; R07.9 Chest pain, unspecified; J44.9 Chronic obstructive pulmonary disease, unspecified; K21.9 Gastro-esophageal reflux disease without esophagitis; E11.51 Type 2 diabetes mellitus with diabetic peripheral angiopathy without gangrene; E78.2 Mixed hyperlipidemia; E87.5 Hyperkalemia; R20.2 Paresthesia of skin; D63.8 Anemia in other chronic diseases classified elsewhere; I95.1 Orthostatic hypotension; Z20.822 Contact with and (suspected) exposure to COVID-19; I25.10 Atherosclerotic heart disease of native coronary artery without angina pectoris; I11.9 Hypertensive heart disease without heart failure; Z95.1 Presence of aortocoronary bypass graft; Z95.5 Presence of coronary angioplasty implant and graft; Z90.49 Acquired absence of other specified parts of digestive tract; Z95.810 Presence of automatic (implantable) cardiac defibrillator; Z79.4 Long term (current) use of insulin; Z79.84 Long term (current) use of oral hypoglycemic drugs
CPT/HCPCS: 36415; 36416; 71045; 76770; 78452; 80048; 80053; 80061; 81003; 81015; 82533; 82553; 82570; 83036; 83880; 83935; 84100; 84156; 84300; 84484; 84540; 85025; 85610; 85730; 86580; 86704; 86705; 86706; 86707; 86803; 87340; 87350; 87517; 87522; 87811; 87902; 90935; 93005; 93017; 93970; 96360; A9500; C1713; C1751; C1752; C1776; G0257; J1644; J1815; J2001; J2250; J2720; J2785; J2795; J3010; J3490; J7050; J7070; L8670; Q5105; U0003; U0005

== ENCOUNTER 2022-05-25 14:07 | Emergency (ER) | payer MEDICAID, MEDICARE, OTHER ==
[~2022-05-25 14:07] MED LIST changes: -ISOVUE-370 76%-LOCM 1 ML ONE; +Iopamidol-370 76% 500 ML 1 ML ONE
[2022-05-25 14:39] LABS: #Basophils 0.1 thou/uL (0.0-0.2); #Eosinphils 0.1 thou/uL (0.0-0.7); #Lymphocytes 1.7 thou/uL (1.20-3.40); #Monocytes 0.5 thou/uL (0.11-0.59); #Neutrophils 4.6 thou/uL (1.40-6.50); %Basophils 0.7 % (0.0-1.0); %Lymphocytes 24.6 % (21.0-51.0); %Monocytes 6.9 % (0.0-10.0); %Neutrophils 65.8 % (42.0-75.0); Hemoglobin 9.2 g/dL (14.0-18.0); Mean Corpuscular HGB CONC 32.3 g/dL (32.0-36.0); Mean Corpuscular Hemoglobin 26.3 pg (27.0-31.0); Mean Corpuscular Volume 81.3 fl (78.0-98.0); Mean Platelet Volume 7.9 fL (7.4-10.4); Platelet Count 274 10x3/uL (130-400); RBC Distribution Width 16.2 % (11.5-14.5); Red Blood Cell (RBC) Count 3.48 mill/uL (4.70-6.10)
[2022-05-25 14:50] LABS: PTT 31.8 sec (22.9-36.1); Prothrombin Time 13.8 sec (12.0-14.7)
[2022-05-25 15:00] LABS: ALT (SGPT) 9 U/L (8-55); AST (SGOT) 17 U/L (5-34); Albumin 3.7 g/dL (3.5-5.0); Alkaline Phosphatase 25 U/L (40-110); Anion Gap 16 mmol/L (10-20); BUN (Urea Nitrogen) 23 mg/dL (8.4-25.7); Bilirubin, Total 0.5 mg/dL (0.2-1.2); Calc. Creatinine Clearance 0 mL/min (70-130); Calcium 8.5 mg/dL (7.8-10.44); Carbon Dioxide 23 mmol/L (22-29); Chloride 99 mmol/L (98-107); Estimated GFR 16; Globulin 3.9 g/dL (2.4-3.5); Glucose 195 mg/dL (70-105); Potassium 3.5 mmol/L (3.5-5.1); Protein, Total 7.6 g/dL (6.0-8.3); Sodium 134 mmol/L (136-145)
== END 2022-05-25 16:59 | disposition home or self-care (01) ==
LOC: ERS 14:07
DX: K92.1 Melena (principal); N30.00 Acute cystitis without hematuria; I12.0 Hypertensive chronic kidney disease with stage 5 chronic kidney disease or end stage renal disease; E11.22 Type 2 diabetes mellitus with diabetic chronic kidney disease; N18.6 End stage renal disease; J44.9 Chronic obstructive pulmonary disease, unspecified; E78.5 Hyperlipidemia, unspecified; Z99.2 Dependence on renal dialysis
CPT/HCPCS: 74177; 80053; 82274; 85025; 85610; 85730; Q9967

== ENCOUNTER 2022-05-28 06:58 | Emergency (ER) | payer MEDICARE, OTHER ==
[2022-05-28 08:00] LABS: #Basophils 0.1 thou/uL (0.0-0.2); #Eosinphils 0.2 thou/uL (0.0-0.7); #Lymphocytes 1.7 thou/uL (1.20-3.40); #Monocytes 0.5 thou/uL (0.11-0.59); #Neutrophils 7.5 thou/uL (1.40-6.50); %Basophils 0.6 % (0.0-1.0); %Eosinophils 1.8 % (0.0-10.0); %Lymphocytes 17.4 % (21.0-51.0); %Monocytes 5.3 % (0.0-10.0); %Neutrophils 74.9 % (42.0-75.0); Mean Corpuscular HGB CONC 32.4 g/dL (32.0-36.0); Mean Corpuscular Hemoglobin 26.3 pg (27.0-31.0); Mean Corpuscular Volume 81.1 fl (78.0-98.0); Mean Platelet Volume 7.8 fL (7.4-10.4); Platelet Count 314 10x3/uL (130-400); RBC Distribution Width 17.4 % (11.5-14.5); Red Blood Cell (RBC) Count 3.42 mill/uL (4.70-6.10)
[2022-05-28 08:21] LABS: ALT (SGPT) 8 U/L (8-55); AST (SGOT) 17 U/L (5-34); Albumin 3.6 g/dL (3.5-5.0); Alkaline Phosphatase 23 U/L (40-110); Anion Gap 18 mmol/L (10-20); BUN (Urea Nitrogen) 54 mg/dL (8.4-25.7); Bilirubin, Total 0.6 mg/dL (0.2-1.2); Calc. Creatinine Clearance 0 mL/min (70-130); Calcium 8.3 mg/dL (7.8-10.44); Carbon Dioxide 21 mmol/L (22-29); Chloride 102 mmol/L (98-107); Estimated GFR 11; Globulin 3.8 g/dL (2.4-3.5); Glucose 124 mg/dL (70-105); Lipase 73 U/L (8-78); Magnesium 1.7 mg/dL (1.6-2.6); Potassium 3.9 mmol/L (3.5-5.1); Protein, Total 7.4 g/dL (6.0-8.3); Sodium 137 mmol/L (136-145)
[2022-05-28] MEDS ORDERED: Iopamidol-370 76% 500 ML 1 ML ONE (10:48)
== END 2022-05-28 09:37 | disposition home or self-care (01) ==
LOC: ERS 06:58
DX: K92.2 Gastrointestinal hemorrhage, unspecified (principal); K59.00 Constipation, unspecified; I10 Essential (primary) hypertension; E11.9 Type 2 diabetes mellitus without complications; J44.9 Chronic obstructive pulmonary disease, unspecified; E78.5 Hyperlipidemia, unspecified; Z91.15 Patient's noncompliance with renal dialysis
CPT/HCPCS: 74177; 80053; 83690; 83735; 83880; 85025; 86850; 86900; 86901; 93005; Q9967

== ENCOUNTER 2022-06-27 13:16 | Emergency (ER) | payer MEDICARE, MEDICAID, OTHER ==
[2022-06-27 13:59] LABS: #Eosinphils 0.1 thou/uL (0.0-0.7); #Lymphocytes 1.8 thou/uL (1.20-3.40); #Monocytes 0.4 thou/uL (0.11-0.59); #Neutrophils 5.9 thou/uL (1.40-6.50); %Basophils 0.1 % (0.0-1.0); %Eosinophils 0.8 % (0.0-10.0); %Lymphocytes 22.2 % (21.0-51.0); %Monocytes 4.8 % (0.0-10.0); %Neutrophils 72.1 % (42.0-75.0); Hemoglobin 9.9 g/dL (14.0-18.0); Mean Corpuscular Hemoglobin 27.4 pg (27.0-31.0); Mean Corpuscular Volume 80.6 fl (78.0-98.0); Mean Platelet Volume 8.2 fL (7.4-10.4); Platelet Count 358 10x3/uL (130-400); RBC Distribution Width 15.4 % (11.5-14.5); Red Blood Cell (RBC) Count 3.61 mill/uL (4.70-6.10); White Blood Cell (WBC) Count 8.2 10x3/uL (4.8-10.8)
[2022-06-27 14:19] LABS: ALT (SGPT) 7 U/L (8-55); AST (SGOT) 12 U/L (5-34); Albumin 3.3 g/dL (3.5-5.0); Alkaline Phosphatase 47 U/L (40-110); Anion Gap 14 mmol/L (10-20); BUN (Urea Nitrogen) 31 mg/dL (8.4-25.7); Bilirubin, Total 0.4 mg/dL (0.2-1.2); Calc. Creatinine Clearance 0 mL/min (70-130); Calcium 8.5 mg/dL (7.8-10.44); Carbon Dioxide 20 mmol/L (22-29); Chloride 97 mmol/L (98-107); Estimated GFR 21; Globulin 3.9 g/dL (2.4-3.5); Lipase 43 U/L (8-78); Protein, Total 7.2 g/dL (6.0-8.3); Sodium 127 mmol/L (136-145)
[2022-06-27 14:24] LABS: Glucose 418 mg/dL (70-105)
[2022-06-27] MEDS ORDERED: Cyclobenzaprine 10 MG TAB ONE (14:35)
[2022-06-27] MEDS ORDERED: Ondansetron PF 4 MG/2 ML Vial ONE (14:35)
[2022-06-27] MEDS ORDERED: Insulin Regular 300 UNITS/3 ML VIAL ONE (16:21)
== END 2022-06-27 17:31 | disposition home or self-care (01) ==
LOC: ERS 13:16
DX: M62.830 Muscle spasm of back (principal); E78.5 Hyperlipidemia, unspecified; J44.9 Chronic obstructive pulmonary disease, unspecified; I12.0 Hypertensive chronic kidney disease with stage 5 chronic kidney disease or end stage renal disease; E11.22 Type 2 diabetes mellitus with diabetic chronic kidney disease; N18.6 End stage renal disease; Z99.2 Dependence on renal dialysis
CPT/HCPCS: 36415; 36416; 71045; 80053; 82010; 83605; 83690; 84484; 85025; 96374; J1815; J2405

== ENCOUNTER 2022-07-02 17:58 | Inpatient (IN) | payer OTHER, MEDICAID ==
[2022-07-02] MEDS ORDERED: Cefepime 2 GM VIAL ONE (18:30)
[2022-07-02] MEDS ORDERED: Acetaminophen 500 MG TAB ONE (18:32)
[2022-07-02 18:40] LABS: #Lymphocytes 0.7 thou/uL (1.20-3.40); #Monocytes 0.5 thou/uL (0.11-0.59); #Neutrophils 6.9 thou/uL (1.40-6.50); %Basophils 0.4 % (0.0-1.0); %Eosinophils 0.2 % (0.0-10.0); %Monocytes 6.2 % (0.0-10.0); %Neutrophils 84.3 % (42.0-75.0); Hemoglobin 9.8 g/dL (14.0-18.0); Mean Corpuscular HGB CONC 33.9 g/dL (32.0-36.0); Mean Corpuscular Hemoglobin 27.1 pg (27.0-31.0); Mean Platelet Volume 7.9 fL (7.4-10.4); Platelet Count 331 10x3/uL (130-400); Red Blood Cell (RBC) Count 3.62 mill/uL (4.70-6.10); White Blood Cell (WBC) Count 8.1 10x3/uL (4.8-10.8)
[2022-07-02] MEDS ORDERED: Vancomycin 1.5 GRAM/300 ML BAG 1.5 GM in Premix Bag 1 BAG IVPB SCH (18:45)
[2022-07-02 18:51] LABS: INR-International Normal Ratio 1.2; PTT 35.3 sec (22.9-36.1); Prothrombin Time 15.2 sec (12.0-14.7)
[2022-07-02 19:01] LABS: ALT (SGPT) Less than 7 U/L (8-55); AST (SGOT) 15 U/L (5-34); Albumin 3.2 g/dL (3.5-5.0); Alkaline Phosphatase 45 U/L (40-110); Anion Gap 16 mmol/L (10-20); BUN (Urea Nitrogen) 15 mg/dL (8.4-25.7); Bilirubin, Total 0.4 mg/dL (0.2-1.2); Calc. Creatinine Clearance 0 mL/min (70-130); Calcium 8.1 mg/dL (7.8-10.44); Carbon Dioxide 24 mmol/L (22-29); Chloride 98 mmol/L (98-107); Estimated GFR 41; Globulin 3.3 g/dL (2.4-3.5); Glucose 294 mg/dL (70-105); Lipase 59 U/L (8-78); Potassium 3.5 mmol/L (3.5-5.1); Protein, Total 6.5 g/dL (6.0-8.3); Sodium 134 mmol/L (136-145)
[2022-07-02 19:32] LABS: SARS-CoV-2 NAA Rapid Test Not Detected (NotDetected)
[2022-07-02 19:36] LABS: Bilirubin Negative (Negative); Blood, Urine 1+ (Negative); Clarity Clear (Clear); Glucose, Urine (Dipstick) Greater than 1000 mg/dL (Negative); Ketone, Urine Negative (Negative); Leukocyte 75 Leu/uL (Negative); Nitrite Negative (Negative); Protein, Urine (Dipstick) 300 mg/dL (Neg-Trace); RBC/HPF 0-3 HPF (0-3); Specific Gravity, Urine 1.013 (1.002-1.036); Squamous Epithelial 0-3 HPF (0-3); Urobilinogen Normal mg/dL (Less than 2); WBC/HPF Greater than 50 HPF (0-3)
[2022-07-02 19:38] LABS: Bacteria/HPF 1+ HPF (None Seen)
[2022-07-02] MEDS ORDERED: Dextrose 5% in Water 1,000 ML IV PRN (21:29)
[2022-07-02] MEDS ORDERED: Dextrose 50% Abboject 50 ML SYRINGE SLOW IVP PRN (21:29)
[2022-07-02] MEDS ORDERED: Vancomycin Diaylsis Sliding Scale (Wt 71-99) FS SCH (21:45)
[2022-07-02 22:37] LABS: Troponin I 0.031 ng/mL (< 0.028)
[2022-07-03 01:32] LABS: Troponin I 0.037 ng/mL (< 0.028)
[2022-07-03 06:35] LABS: #Eosinphils 0.1 thou/uL (0.0-0.7); #Lymphocytes 1.2 thou/uL (1.20-3.40); #Monocytes 0.6 thou/uL (0.11-0.59); %Basophils 0.3 % (0.0-1.0); %Eosinophils 1.6 % (0.0-10.0); %Monocytes 8.8 % (0.0-10.0); %Neutrophils 72.3 % (42.0-75.0); Hemoglobin 9.6 g/dL (14.0-18.0); Mean Corpuscular HGB CONC 33.4 g/dL (32.0-36.0); Mean Corpuscular Hemoglobin 27.4 pg (27.0-31.0); Mean Corpuscular Volume 81.9 fl (78.0-98.0); Mean Platelet Volume 7.4 fL (7.4-10.4); Platelet Count 319 10x3/uL (130-400); RBC Distribution Width 14.8 % (11.5-14.5); White Blood Cell (WBC) Count 6.9 10x3/uL (4.8-10.8)
[2022-07-03 06:45] LABS: Anion Gap 10 mmol/L (10-20); BUN (Urea Nitrogen) 19 mg/dL (8.4-25.7); Calc. Creatinine Clearance 0 mL/min (70-130); Calcium 8.2 mg/dL (7.8-10.44); Carbon Dioxide 26 mmol/L (22-29); Chloride 100 mmol/L (98-107); Estimated GFR 30; Glucose 166 mg/dL (70-105); Magnesium 1.8 mg/dL (1.6-2.6); Phosphorus 2.6 mg/dL (2.3-4.7); Potassium 3.2 mmol/L (3.5-5.1); Sodium 133 mmol/L (136-145)
[2022-07-03] MEDS ORDERED: Cefepime 1 GM VIAL ONE (08:24)
[2022-07-03] MEDS: Cefepime 1 GM in Sodium Chloride 0.9% 100 ML IVPB SCH (08:27)
[2022-07-03] MEDS ORDERED: Non-Formulary Item 1 EACH (Gabapentin [Gabapentin] 600 MG Tablet) PO SCH (09:00)
[2022-07-03] MEDS ORDERED: Vancomycin 1 GM in Premix Bag 1 BAG IVPB SCH (09:00)
[2022-07-03] MEDS: Atorvastatin Calcium 40 MG TAB PO SCH (09:06)
[2022-07-03] MEDS: Gabapentin 100 MG CAP PO SCH ×3 (09:06→22:00)
[2022-07-03] MEDS: Carvedilol 3.125 MG TAB PO SCH ×2 (09:06→16:00)
[2022-07-03] MEDS: Heparin 5,000 UNITS/ML VIAL SC SCH ×3 (09:07→21:30)
[2022-07-03] MEDS: Insulin Glargine 30 UNITS/0.3 ML VIAL SC SCH ×2 (09:11→22:00)
[2022-07-03] MEDS: HumaLOG 300 UNITS/3 ML VIAL SC PRN ×2 (12:46→16:07)
[2022-07-03] MEDS ORDERED: Acetaminophen 325 MG TAB PO PRN (21:49)
[2022-07-04 05:44] LABS: Troponin I 0.033 ng/mL (< 0.028)
[2022-07-04 05:49] LABS: Vancomycin, Random 14.3 ug/mL (See Comment)
[2022-07-04] MEDS ORDERED: Heparin 10,000 UNITS/ 10 ML VIAL ONE (08:21)
[2022-07-04] MEDS: Atorvastatin Calcium 40 MG TAB PO SCH (09:28)
[2022-07-04] MEDS: Insulin Glargine 30 UNITS/0.3 ML VIAL SC SCH ×2 (09:28→22:10)
[2022-07-04] MEDS: Gabapentin 100 MG CAP PO SCH ×3 (09:28→22:04)
[2022-07-04] MEDS: Carvedilol 3.125 MG TAB PO SCH ×2 (09:28→18:32)
[2022-07-04] MEDS: Cefepime 1 GM in Sodium Chloride 0.9% 100 ML IVPB SCH (09:29)
[2022-07-04] MEDS: Heparin 5,000 UNITS/ML VIAL SC SCH ×3 (09:29→22:05)
[2022-07-04] MEDS: HumaLOG 300 UNITS/3 ML VIAL SC PRN (11:22)
[2022-07-04] MEDS ORDERED: Vancomycin 1 GM in Premix Bag 1 BAG IVPB SCH (17:00)
[2022-07-04 18:37] LABS: HBSAB Concentration 0.35 mIU/mL; Hep B Surf AB NonReactive (NonReactive); Hep B Surf Ag NonReactive S/CO (NonReactive)
[2022-07-04 18:38] LABS: HBSAg Index 0.85 S/CO (0-0.99)
[2022-07-05 06:20] VITALS: BMI 24.0
[2022-07-05] MEDS: Cefepime 1 GM in Sodium Chloride 0.9% 100 ML IVPB SCH (08:51)
[2022-07-05] MEDS: Heparin 5,000 UNITS/ML VIAL SC SCH (08:54)
[2022-07-05] MEDS: Insulin Glargine 30 UNITS/0.3 ML VIAL SC SCH (08:54)
[2022-07-05] MEDS: Carvedilol 3.125 MG TAB PO SCH (08:55)
[2022-07-05] MEDS: Atorvastatin Calcium 40 MG TAB PO SCH (08:55)
[2022-07-05] MEDS: Gabapentin 100 MG CAP PO SCH (08:55)
[2022-07-05] MEDS ORDERED: Ciprofloxacin 500 MG TAB PO SCH (09:00)
[2022-07-05 12:09] VITALS: BP 122/74; TEMP 97.4
== END 2022-07-05 13:00 | disposition home or self-care (01) | DRG 871 ==
LOC: ERS 17:58 → SUATTDRO 17:58 → ERHOLD 20:38 → 2NO 07-03 18:34
PROVIDERS: ADMIT Internal Medicine; ATTEND Internal Medicine
PROC: 3E03329 Introduction of Other Anti-infective into Peripheral Vein, Percutaneous Approach (ICD-10-PCS; principal; 2022-07-02)
PROC: 5A1D70Z Performance of Urinary Filtration, Intermittent, Less than 6 Hours Per Day (ICD-10-PCS; 2022-07-04)
DX: A41.4 Sepsis due to anaerobes (principal); N18.6 End stage renal disease; N39.0 Urinary tract infection, site not specified; I12.0 Hypertensive chronic kidney disease with stage 5 chronic kidney disease or end stage renal disease; Z20.822 Contact with and (suspected) exposure to COVID-19; E11.22 Type 2 diabetes mellitus with diabetic chronic kidney disease; R77.8 Other specified abnormalities of plasma proteins; K21.9 Gastro-esophageal reflux disease without esophagitis; J44.9 Chronic obstructive pulmonary disease, unspecified; D63.1 Anemia in chronic kidney disease; Z99.2 Dependence on renal dialysis; Z79.899 Other long term (current) drug therapy; Z79.82 Long term (current) use of aspirin; Z79.4 Long term (current) use of insulin; I25.2 Old myocardial infarction; Z95.1 Presence of aortocoronary bypass graft; Z98.890 Other specified postprocedural states
CPT/HCPCS: 36415; 36416; 71045; 80048; 80053; 80202; 81003; 81015; 83605; 83690; 83735; 84100; 84484; 85025; 85610; 85730; 86706; 87040; 87077; 87086; 87186; 87340; 93005; 96365; 96375; J0692; J1644; J1815; J3370; J3370-JW; J3490

== ENCOUNTER 2022-07-09 09:50 | Emergency (ER) | payer MEDICARE, OTHER ==
[2022-07-09 11:06] LABS: #Eosinphils 0.2 thou/uL (0.0-0.7); #Lymphocytes 2.1 thou/uL (1.20-3.40); #Monocytes 0.4 thou/uL (0.11-0.59); #Neutrophils 7.3 thou/uL (1.40-6.50); %Basophils 0.4 % (0.0-1.0); %Lymphocytes 20.7 % (21.0-51.0); %Monocytes 3.7 % (0.0-10.0); %Neutrophils 73.1 % (42.0-75.0); Hemoglobin 10.8 g/dL (14.0-18.0); Mean Corpuscular HGB CONC 33.4 g/dL (32.0-36.0); Mean Corpuscular Volume 80.8 fl (78.0-98.0); Mean Platelet Volume 7.7 fL (7.4-10.4); Platelet Count 447 10x3/uL (130-400); RBC Distribution Width 15.2 % (11.5-14.5); Red Blood Cell (RBC) Count 4.02 mill/uL (4.70-6.10)
[2022-07-09 11:28] LABS: ALT (SGPT) 24 U/L (8-55); AST (SGOT) 21 U/L (5-34); Albumin 3.7 g/dL (3.5-5.0); Alkaline Phosphatase 53 U/L (40-110); Anion Gap 14 mmol/L (10-20); BUN (Urea Nitrogen) 41 mg/dL (8.4-25.7); Bilirubin, Total 0.4 mg/dL (0.2-1.2); Calc. Creatinine Clearance 0 mL/min (70-130); Calcium 9.3 mg/dL (7.8-10.44); Carbon Dioxide 19 mmol/L (22-29); Chloride 103 mmol/L (98-107); Estimated GFR 26; Globulin 4.9 g/dL (2.4-3.5); Glucose 281 mg/dL (70-105); Potassium 5.1 mmol/L (3.5-5.1); Protein, Total 8.6 g/dL (6.0-8.3); Sodium 131 mmol/L (136-145)
[2022-07-09 14:12] LABS: Magnesium 1.8 mg/dL (1.6-2.6)
[2022-07-09 14:13] LABS: Phosphorus 2.7 mg/dL (2.3-4.7)
[2022-07-09 14:16] LABS: SARS-CoV-2 NAA Rapid Test Not Detected (NotDetected)
== END 2022-07-09 16:10 | disposition home or self-care (01) ==
LOC: EDUNIT# 09:50 → ERS 09:50
DX: M79.605 Pain in left leg (principal); M79.604 Pain in right leg; E11.40 Type 2 diabetes mellitus with diabetic neuropathy, unspecified; E11.65 Type 2 diabetes mellitus with hyperglycemia; E11.22 Type 2 diabetes mellitus with diabetic chronic kidney disease; I12.0 Hypertensive chronic kidney disease with stage 5 chronic kidney disease or end stage renal disease; N18.6 End stage renal disease; R79.1 Abnormal coagulation profile; J44.9 Chronic obstructive pulmonary disease, unspecified; Z99.2 Dependence on renal dialysis; Z87.891 Personal history of nicotine dependence; Z20.822 Contact with and (suspected) exposure to COVID-19
CPT/HCPCS: 0240U; 71045; 80053; 83735; 84100; 84484; 85025; 85379; 93005; 93970; 94760; 99284; 36415

== ENCOUNTER 2022-08-28 10:19 | Inpatient (IN) | payer OTHER, MEDICAID ==
[2022-08-28 11:03] LABS: #Basophils 0.1 thou/uL (0.0-0.2); #Eosinphils 0.2 thou/uL (0.0-0.7); #Lymphocytes 1.5 thou/uL (1.20-3.40); #Monocytes 0.4 thou/uL (0.11-0.59); #Neutrophils 7.7 thou/uL (1.40-6.50); %Basophils 0.5 % (0.0-1.0); %Neutrophils 78.4 % (42.0-75.0); Hemoglobin 12.6 g/dL (14.0-18.0); Mean Corpuscular HGB CONC 32.2 g/dL (32.0-36.0); Mean Corpuscular Hemoglobin 25.5 pg (27.0-31.0); Mean Corpuscular Volume 79.4 fl (78.0-98.0); Mean Platelet Volume 8.2 fL (7.4-10.4); Platelet Count 388 10x3/uL (130-400); RBC Distribution Width 13.9 % (11.5-14.5); Red Blood Cell (RBC) Count 4.94 mill/uL (4.70-6.10); White Blood Cell (WBC) Count 9.8 10x3/uL (4.8-10.8)
[2022-08-28] MEDS ORDERED: Cefepime 2 GM VIAL ONE (11:18)
[2022-08-28 11:19] LABS: ALT (SGPT) 9 U/L (8-55); AST (SGOT) 11 U/L (5-34); Albumin 3.2 g/dL (3.5-5.0); Alkaline Phosphatase 78 U/L (40-110); Anion Gap 15 mmol/L (10-20); BUN (Urea Nitrogen) 33 mg/dL (8.4-25.7); Bilirubin, Total 0.2 mg/dL (0.2-1.2); Calc. Creatinine Clearance 0 mL/min (70-130); Calcium 9.1 mg/dL (7.8-10.44); Carbon Dioxide 14 mmol/L (22-29); Chloride 105 mmol/L (98-107); Estimated GFR 24; Globulin 4.2 g/dL (2.4-3.5); Potassium 5.2 mmol/L (3.5-5.1); Protein, Total 7.4 g/dL (6.0-8.3); Sodium 129 mmol/L (136-145)
[2022-08-28 11:26] LABS: Glucose 508 mg/dL (70-105)
[2022-08-28] MEDS ORDERED: Vancomycin 1 GM/200 ML (FROZEN) BAG ONE (11:57)
[2022-08-28 12:03] LABS: Actual Bicarbonate (HCO3v) 19 mEq/L (22-28); Base Excess -5.7 mEq/L (-2.0 to +3.0); Calcium, Ionized (venous) 1.14 mmol/L (1.16-1.32); Chloride (VBG) 107 mmol/L (98-106); Hemoglobin (Hb) 12.6 g/dL (13.1-17.2); Potassium (VBG) 5.26 mmol/L (3.70-5.30); Sodium 132.9 mmol/L (133-146); pH (venous) 7.36 (7.32-7.43)
[2022-08-28 12:33] LABS: Bilirubin Negative (Negative); Blood, Urine 1+ (Negative); Clarity Clear (Clear); Glucose, Urine (Dipstick) Greater than 1000 mg/dL (Negative); Ketone, Urine Negative (Negative); Leukocyte 75 Leu/uL (Negative); Nitrite Negative (Negative); Protein, Urine (Dipstick) 300 mg/dL (Neg-Trace); RBC/HPF 0-3 HPF (0-3); Specific Gravity, Urine 1.021 (1.002-1.036); Squamous Epithelial 0-3 HPF (0-3); Urobilinogen Normal mg/dL (Less than 2)
[2022-08-28 12:35] LABS: Bacteria/HPF 1+ HPF (None Seen)
[2022-08-28] MEDS ORDERED: HYDROmorphone 0.5 MG/0.5 ML SYRINGE ONE (14:49)
[2022-08-28] MEDS ORDERED: Ondansetron ODT 4 MG TAB PO PRN (15:42)
[2022-08-28] MEDS ORDERED: HYDROcodone/Acetaminophen 5/325 mg Tablet PO PRN (15:42)
[2022-08-28] MEDS ORDERED: Acetaminophen 500 MG TAB PO PRN (15:42)
[2022-08-28] MEDS ORDERED: Dextrose 5% in Water 1,000 ML IV PRN (15:47)
[2022-08-28] MEDS ORDERED: Dextrose 50% Abboject 50 ML SYRINGE SLOW IVP PRN (15:47)
[2022-08-28 17:02] VITALS: BMI 23.4
[2022-08-28] MEDS ORDERED: Piperacillin/Tazobactam 3.375 GM in Sodium Chloride 0.9% 100 ML IVPB SCH ×2 (17:15→21:00)
[2022-08-28] MEDS ORDERED: Vancomycin Dose by Levels Sliding Scale (Wt <71) FS SCH (17:15)
[2022-08-28] MEDS ORDERED: VANCOMYCIN IVPB PRN (17:15)
[2022-08-28] MEDS ORDERED: Vancomycin HCl 500 MG in Sodium Chloride 0.9% 100 ML IVPB SCH (17:30)
[2022-08-28] MEDS: Carvedilol 3.125 MG TAB PO SCH (17:42)
[2022-08-28] MEDS: HumaLOG 300 UNITS/3 ML VIAL SC SCH (17:42)
[2022-08-28] MEDS: HumaLOG 300 UNITS/3 ML VIAL SC PRN (17:43)
[2022-08-28] MEDS ORDERED: VANCOMYCIN 1.25 GM/250 ML BAG IVPB SCH (21:00)
[2022-08-28] MEDS: Atorvastatin Calcium 40 MG TAB PO SCH (21:47)
[2022-08-28] MEDS: Icosapent Ethyl 1 GM CAPSULE PO SCH (21:47)
[2022-08-28] MEDS: Fenofibrate Nanocrystallized 145 MG TAB PO SCH (21:48)
[2022-08-28] MEDS: Gabapentin 300 MG CAP PO SCH (21:48)
[2022-08-28] MEDS: Midodrine HCl 5 MG TAB PO SCH (21:48)
[2022-08-28] MEDS: Heparin 5,000 UNITS/ML VIAL SC SCH (21:48)
[2022-08-28] MEDS: Insulin Glargine 30 UNITS/0.3 ML VIAL SC SCH (21:49)
[2022-08-28] MEDS: Piperacillin/Tazobactam 3.375 GM in Sodium Chloride 0.9% 100 ML IVPB SCH (21:54)
[2022-08-29 04:44] LABS: #Basophils 0.1 thou/uL (0.0-0.2); #Eosinphils 0.3 thou/uL (0.0-0.7); #Lymphocytes 2.4 thou/uL (1.20-3.40); #Monocytes 0.6 thou/uL (0.11-0.59); #Neutrophils 5.8 thou/uL (1.40-6.50); %Basophils 0.8 % (0.0-1.0); %Eosinophils 3.6 % (0.0-10.0); %Lymphocytes 26.3 % (21.0-51.0); %Monocytes 6.7 % (0.0-10.0); %Neutrophils 62.7 % (42.0-75.0); Hemoglobin 11.1 g/dL (14.0-18.0); Mean Corpuscular HGB CONC 33.9 g/dL (32.0-36.0); Mean Corpuscular Hemoglobin 27.1 pg (27.0-31.0); Mean Corpuscular Volume 79.9 fl (78.0-98.0); Platelet Count 305 10x3/uL (130-400); RBC Distribution Width 13.9 % (11.5-14.5); Red Blood Cell (RBC) Count 4.11 mill/uL (4.70-6.10); White Blood Cell (WBC) Count 9.3 10x3/uL (4.8-10.8)
[2022-08-29 04:45] LABS: Hemoglobin A1c 11.1 % (4.0-6.0)
[2022-08-29 05:01] LABS: Anion Gap 14 mmol/L (10-20); BUN (Urea Nitrogen) 36 mg/dL (8.4-25.7); Calc. Creatinine Clearance 30 mL/min (70-130); Calcium 8.7 mg/dL (7.8-10.44); Carbon Dioxide 17 mmol/L (22-29); Chloride 109 mmol/L (98-107); Estimated GFR 27; Glucose 157 mg/dL (70-105); Potassium 4.9 mmol/L (3.5-5.1); Sodium 135 mmol/L (136-145)
[2022-08-29] MEDS: Piperacillin/Tazobactam 3.375 GM in Sodium Chloride 0.9% 100 ML IVPB SCH ×3 (05:39→22:09)
[2022-08-29] MEDS: Aspirin Chewable 81 MG TAB PO SCH (07:47)
[2022-08-29] MEDS: Midodrine HCl 5 MG TAB PO SCH ×3 (07:47→22:08)
[2022-08-29] MEDS: Gabapentin 300 MG CAP PO SCH ×2 (07:47→22:08)
[2022-08-29] MEDS: Heparin 5,000 UNITS/ML VIAL SC SCH ×3 (07:48→22:15)
[2022-08-29] MEDS: HumaLOG 300 UNITS/3 ML VIAL SC SCH ×3 (07:48→18:32)
[2022-08-29] MEDS: Insulin Glargine 30 UNITS/0.3 ML VIAL SC SCH ×2 (07:48→22:09)
[2022-08-29] MEDS: Carvedilol 3.125 MG TAB PO SCH ×3 (08:07→16:20)
[2022-08-29] MEDS ORDERED: FLU VACC QS2022-23(6MOS UP)/PF 60 MCG/0.5 ML SYRINGE IM ONE (09:00)
[2022-08-29] MEDS: Icosapent Ethyl 1 GM CAPSULE PO SCH ×2 (10:12→17:55)
[2022-08-29] MEDS: HumaLOG 300 UNITS/3 ML VIAL SC PRN ×2 (11:51→17:55)
[2022-08-29] MEDS ORDERED: Vancomycin HCl 500 MG in Sodium Chloride 0.9% 100 ML IVPB SCH (15:00)
[2022-08-29] MEDS ORDERED: Sodium Bicarbonate 150 MEQ in Dextrose 5% in Water 1,000 ML IV SCH (17:45)
[2022-08-29] MEDS: Atorvastatin Calcium 40 MG TAB PO SCH (22:08)
[2022-08-29] MEDS: Fenofibrate Nanocrystallized 145 MG TAB PO SCH (22:08)
[2022-08-29] MEDS ORDERED: HumaLOG 300 UNITS/3 ML VIAL SC PRN (22:39)
[2022-08-30 05:00] LABS: #Basophils 0.1 thou/uL (0.0-0.2); #Eosinphils 0.3 thou/uL (0.0-0.7); #Lymphocytes 2.4 thou/uL (1.20-3.40); #Monocytes 0.6 thou/uL (0.11-0.59); #Neutrophils 4.5 thou/uL (1.40-6.50); %Basophils 1.1 % (0.0-1.0); %Eosinophils 3.4 % (0.0-10.0); %Lymphocytes 30.4 % (21.0-51.0); %Monocytes 7.5 % (0.0-10.0); %Neutrophils 57.7 % (42.0-75.0); Hemoglobin 11.2 g/dL (14.0-18.0); Hemoglobin A1c 12.2 % (4.0-6.0); Mean Corpuscular HGB CONC 34.2 g/dL (32.0-36.0); Mean Corpuscular Hemoglobin 27.1 pg (27.0-31.0); Mean Corpuscular Volume 79.4 fl (78.0-98.0); Mean Platelet Volume 8.2 fL (7.4-10.4); Platelet Count 298 10x3/uL (130-400); RBC Distribution Width 13.8 % (11.5-14.5); Red Blood Cell (RBC) Count 4.13 mill/uL (4.70-6.10); White Blood Cell (WBC) Count 7.9 10x3/uL (4.8-10.8)
[2022-08-30 05:23] LABS: ALT (SGPT) 9 U/L (8-55); AST (SGOT) 12 U/L (5-34); Albumin 2.9 g/dL (3.5-5.0); Alkaline Phosphatase 56 U/L (40-110); Anion Gap 13 mmol/L (10-20); BUN (Urea Nitrogen) 34 mg/dL (8.4-25.7); BUN/Creatinine Ratio 12.78; Bilirubin, Total 0.3 mg/dL (0.2-1.2); Calc. Creatinine Clearance 30 mL/min (70-130); Calcium 8.5 mg/dL (7.8-10.44); Carbon Dioxide 19 mmol/L (22-29); Chloride 106 mmol/L (98-107); Estimated GFR 27; Globulin 3.8 g/dL (2.4-3.5); Glucose 155 mg/dL (70-105); Phosphorus 3.1 mg/dL (2.3-4.7); Potassium 4.1 mmol/L (3.5-5.1); Protein, Total 6.7 g/dL (6.0-8.3); Sodium 134 mmol/L (136-145)
[2022-08-30] MEDS: Piperacillin/Tazobactam 3.375 GM in Sodium Chloride 0.9% 100 ML IVPB SCH ×3 (06:20→21:27)
[2022-08-30] MEDS: Midodrine HCl 5 MG TAB PO SCH ×3 (08:48→21:34)
[2022-08-30] MEDS: Gabapentin 300 MG CAP PO SCH ×2 (08:48→21:33)
[2022-08-30] MEDS: Carvedilol 3.125 MG TAB PO SCH ×2 (08:48→17:22)
[2022-08-30] MEDS: Aspirin Chewable 81 MG TAB PO SCH (08:48)
[2022-08-30] MEDS: Heparin 5,000 UNITS/ML VIAL SC SCH ×3 (08:49→21:34)
[2022-08-30] MEDS: HumaLOG 300 UNITS/3 ML VIAL SC SCH ×3 (08:49→17:23)
[2022-08-30] MEDS: Insulin Glargine 30 UNITS/0.3 ML VIAL SC SCH (09:36)
[2022-08-30] MEDS: Icosapent Ethyl 1 GM CAPSULE PO SCH ×2 (09:37→17:22)
[2022-08-30] MEDS: HumaLOG 300 UNITS/3 ML VIAL SC PRN (11:37)
[2022-08-30 13:33] LABS: Vancomycin, Random 15.2 ug/mL (See Comment)
[2022-08-30] MEDS ORDERED: Vancomycin HCl 500 MG in Sodium Chloride 0.9% 100 ML IV SCH ×2 (14:00→15:15)
[2022-08-30 19:58] VITALS: BP 154/86; TEMP 97.7
[2022-08-30] MEDS ORDERED: Sodium Bicarbonate 150 MEQ in Dextrose 5% in Water 1,000 ML IV SCH (20:45)
[2022-08-30] MEDS ORDERED: Insulin Glargine 30 UNITS/0.3 ML VIAL SC SCH (21:00)
[2022-08-30] MEDS: Fenofibrate Nanocrystallized 145 MG TAB PO SCH (21:32)
[2022-08-30] MEDS: Atorvastatin Calcium 40 MG TAB PO SCH (21:33)
== END 2022-08-30 22:30 | disposition short-term general hospital (02) | DRG 637 ==
LOC: ERS 10:19 → 2NO 16:38 → SURG B 08-30 14:42
PROVIDERS: ADMIT Family Medicine; ATTEND Family Medicine
PROC: 4A033R1 Measurement of Arterial Saturation, Peripheral, Percutaneous Approach (ICD-10-PCS; principal; 2022-08-28)
DX: E11.00 Type 2 diabetes mellitus with hyperosmolarity without nonketotic hyperglycemic-hyperosmolar coma (NKHHC) (principal); N18.6 End stage renal disease; I13.2 Hypertensive heart and chronic kidney disease with heart failure and with stage 5 chronic kidney disease, or end stage renal disease; E87.20 Acidosis, unspecified; M86.8X8 Other osteomyelitis, other site; N17.9 Acute kidney failure, unspecified; Z20.822 Contact with and (suspected) exposure to COVID-19; E11.22 Type 2 diabetes mellitus with diabetic chronic kidney disease; K21.9 Gastro-esophageal reflux disease without esophagitis; E87.5 Hyperkalemia; D63.1 Anemia in chronic kidney disease; E11.621 Type 2 diabetes mellitus with foot ulcer; L97.519 Non-pressure chronic ulcer of other part of right foot with unspecified severity; E11.69 Type 2 diabetes mellitus with other specified complication; E78.5 Hyperlipidemia, unspecified; E11.42 Type 2 diabetes mellitus with diabetic polyneuropathy; I50.9 Heart failure, unspecified; Z95.810 Presence of automatic (implantable) cardiac defibrillator; Z79.899 Other long term (current) drug therapy; Z91.14 Patient's other noncompliance with medication regimen; Z87.440 Personal history of urinary (tract) infections; Z79.82 Long term (current) use of aspirin; Z79.4 Long term (current) use of insulin; Z95.1 Presence of aortocoronary bypass graft; Z89.411 Acquired absence of right great toe
CPT/HCPCS: 36415; 36416; 71046; 80048; 80053; 80069; 80202; 81003; 81015; 82010; 82805; 83036; 83605; 83930; 83935; 84300; 85025; 85652; 86140; 87040; 87086; 93005; 94760; 96365; 96367; 96375; 97139; J0692; J1170; J1644; J1815; J2543; J3370; J3370-JW; J3490; J7070; U0003; U0005

== ENCOUNTER 2022-09-25 14:17 | Inpatient (IN) | payer OTHER, MEDICAID ==
[2022-09-25 15:21] LABS: #Basophils 0.1 thou/uL (0.0-0.2); #Eosinphils 0.1 thou/uL (0.0-0.7); #Lymphocytes 1.7 thou/uL (1.20-3.40); #Monocytes 0.6 thou/uL (0.11-0.59); #Neutrophils 10.6 thou/uL (1.40-6.50); %Basophils 0.4 % (0.0-1.0); %Eosinophils 0.4 % (0.0-10.0); %Lymphocytes 13.3 % (21.0-51.0); %Monocytes 4.9 % (0.0-10.0); Hemoglobin 10.9 g/dL (14.0-18.0); Mean Corpuscular Hemoglobin 26.6 pg (27.0-31.0); Mean Corpuscular Volume 78.2 fl (78.0-98.0); Mean Platelet Volume 8.7 fL (7.4-10.4); Platelet Count 291 10x3/uL (130-400); RBC Distribution Width 14.5 % (11.5-14.5); Red Blood Cell (RBC) Count 4.09 mill/uL (4.70-6.10); White Blood Cell (WBC) Count 13.1 10x3/uL (4.8-10.8)
[2022-09-25 15:45] LABS: Actual Bicarbonate (HCO3v) 20 mEq/L (22-28); Base Excess -3.4 mEq/L (-2.0 to +3.0); Calcium, Ionized (venous) 1.09 mmol/L (1.16-1.32); Chloride (VBG) 101 mmol/L (98-106); Hemoglobin (Hb) 11.5 g/dL (13.1-17.2); Potassium (VBG) 4.48 mmol/L (3.70-5.30); Sodium 128.5 mmol/L (133-146); pH (venous) 7.45 (7.32-7.43)
[2022-09-25 15:51] LABS: ALT (SGPT) 7 U/L (8-55); AST (SGOT) 9 U/L (5-34); Albumin 3.1 g/dL (3.5-5.0); Alkaline Phosphatase 73 U/L (40-110); Anion Gap 15 mmol/L (10-20); BUN (Urea Nitrogen) 36 mg/dL (8.4-25.7); Bilirubin, Total 0.4 mg/dL (0.2-1.2); CK (CPK) 47 U/L (30-200); Calc. Creatinine Clearance 0 mL/min (70-130); Calcium 8.9 mg/dL (7.8-10.44); Carbon Dioxide 15 mmol/L (22-29); Chloride 101 mmol/L (98-107); Estimated GFR 27; Globulin 4.5 g/dL (2.4-3.5); Lipase 42 U/L (8-78); Magnesium 1.8 mg/dL (1.6-2.6); Potassium 4.5 mmol/L (3.5-5.1); Protein, Total 7.6 g/dL (6.0-8.3); Sodium 126 mmol/L (136-145)
[2022-09-25 15:55] LABS: Phosphorus 3.2 mg/dL (2.3-4.7)
[2022-09-25 15:56] LABS: Glucose 487 mg/dL (70-105)
[2022-09-25 16:36] LABS: Bacteria/HPF None Seen HPF (None Seen); Bilirubin Negative (Negative); Blood, Urine 1+ (Negative); Clarity Clear (Clear); Glucose, Urine (Dipstick) Greater than 1000 mg/dL (Negative); Ketone, Urine Negative (Negative); Leukocyte 25 Leu/uL (Negative); Nitrite Negative (Negative); Protein, Urine (Dipstick) 200 mg/dL (Neg-Trace); RBC/HPF 0-3 HPF (0-3); Specific Gravity, Urine 1.019 (1.002-1.036); Squamous Epithelial None Seen HPF (0-3); Urobilinogen Normal mg/dL (Less than 2); pH, Urine 6.5 (5.0-9.0)
[2022-09-25] MEDS ORDERED: HumaLOG 300 UNITS/3 ML VIAL ONE (17:20)
[2022-09-25] MEDS ORDERED: Insulin Regular 300 UNITS/3 ML VIAL ONE (17:22)
[2022-09-25] MEDS ORDERED: fentaNYL 50 mcg/mL 1 mL Vial ONE (17:57)
[2022-09-25] MEDS ORDERED: Dextrose 50% Abboject 50 ML SYRINGE SLOW IVP PRN (18:40)
[2022-09-25] MEDS ORDERED: Acetaminophen 325 MG TAB PO PRN (18:40)
[2022-09-25] MEDS ORDERED: Dextrose 5% in Water 1,000 ML IV PRN (18:40)
[2022-09-25] MEDS ORDERED: Fentanyl 100 MCG/2 ML VIAL SLOW IVP PRN (18:46)
[2022-09-25 19:04] LABS: Troponin I 0.015 ng/mL (< 0.028)
[2022-09-25] MEDS ORDERED: Insulin Glargine 30 UNITS/0.3 ML VIAL SC SCH (21:00)
[2022-09-25] MEDS ORDERED: Cefepime 2 GM in Sodium Chloride 0.9% 100 ML IVPB SCH ×2 (21:00→23:00)
[2022-09-25 21:05] LABS: Troponin I 0.016 ng/mL (< 0.028)
[2022-09-25] MEDS ORDERED: VANCOMYCIN 1.25 GM/250 ML BAG 1.25 GM in Premix Bag 1 BAG IVPB SCH (21:30)
[2022-09-25] MEDS: Heparin 5,000 UNITS/ML VIAL SC SCH (21:46)
[2022-09-25] MEDS: Atorvastatin Calcium 40 MG TAB PO SCH (21:46)
[2022-09-25] MEDS: Sodium Chloride 0.9% 1,000 ML IV SCH (21:49)
[2022-09-25 21:56] VITALS: BMI 23.2
[2022-09-25] MEDS ORDERED: Vancomycin Hemodialysis Sliding Scale FS SCH (22:15)
[2022-09-25] MEDS ORDERED: Cefepime 1 GM in Sodium Chloride 0.9% 100 ML IVPB SCH (23:00)
[2022-09-26 05:03] LABS: #Basophils 0.1 thou/uL (0.0-0.2); #Eosinphils 0.1 thou/uL (0.0-0.7); #Lymphocytes 1.8 thou/uL (1.20-3.40); #Monocytes 0.6 thou/uL (0.11-0.59); %Basophils 0.7 % (0.0-1.0); %Eosinophils 1.2 % (0.0-10.0); %Monocytes 5.4 % (0.0-10.0); %Neutrophils 75.7 % (42.0-75.0); Mean Corpuscular HGB CONC 34.6 g/dL (32.0-36.0); Mean Corpuscular Hemoglobin 27.1 pg (27.0-31.0); Mean Corpuscular Volume 78.4 fl (78.0-98.0); Mean Platelet Volume 8.4 fL (7.4-10.4); Platelet Count 288 10x3/uL (130-400); RBC Distribution Width 14.4 % (11.5-14.5); Red Blood Cell (RBC) Count 3.67 mill/uL (4.70-6.10); White Blood Cell (WBC) Count 10.6 10x3/uL (4.8-10.8)
[2022-09-26 05:29] LABS: Anion Gap 11 mmol/L (10-20); BUN (Urea Nitrogen) 31 mg/dL (8.4-25.7); Calc. Creatinine Clearance 37 mL/min (70-130); Calcium 8.5 mg/dL (7.8-10.44); Carbon Dioxide 18 mmol/L (22-29); Chloride 106 mmol/L (98-107); Estimated GFR 35; Glucose 194 mg/dL (70-105); Potassium 3.9 mmol/L (3.5-5.1); Sodium 131 mmol/L (136-145)
[2022-09-26] MEDS: HumaLOG 300 UNITS/3 ML VIAL SC PRN ×3 (05:52→21:50)
[2022-09-26] MEDS: Carvedilol 3.125 MG TAB PO SCH ×2 (10:59→16:47)
[2022-09-26] MEDS: Heparin 5,000 UNITS/ML VIAL SC SCH ×3 (11:50→21:51)
[2022-09-26] MEDS: Aspirin 81 mg Enteric Coated Tablet PO SCH (11:50)
[2022-09-26] MEDS: Sodium Chloride 0.9% 1,000 ML IV SCH (12:00)
[2022-09-26] MEDS ORDERED: Albuterol 200 PUFF (6.7GM INHALER) INH PRN (12:27)
[2022-09-26] MEDS ORDERED: Vancomycin Dose by Levels Sliding Scale (Wt <71) FS SCH (17:45)
[2022-09-26] MEDS ORDERED: Vancomycin HCl 750 MG in Sodium Chloride 0.9% 250 ML 250 ML IVPB SCH (21:00)
[2022-09-26] MEDS: Insulin Glargine 30 UNITS/0.3 ML VIAL SC SCH (21:50)
[2022-09-26] MEDS: Atorvastatin Calcium 40 MG TAB PO SCH (21:50)
[2022-09-26 22:35] LABS: Vancomycin, Random 9.3 ug/mL (See Comment)
[2022-09-26] MEDS ORDERED: VANCOMYCIN 1.25 GM/250 ML BAG 1.25 GM in Premix Bag 1 BAG IVPB SCH (23:00)
[2022-09-26] MEDS: Cefepime 1 GM in Sodium Chloride 0.9% 100 ML IVPB SCH (23:57)
[2022-09-27 04:48] LABS: #Basophils 0.1 thou/uL (0.0-0.2); #Eosinphils 0.2 thou/uL (0.0-0.7); #Lymphocytes 1.9 thou/uL (1.20-3.40); #Monocytes 0.7 thou/uL (0.11-0.59); #Neutrophils 7.1 thou/uL (1.40-6.50); %Basophils 0.6 % (0.0-1.0); %Eosinophils 1.7 % (0.0-10.0); %Lymphocytes 19.4 % (21.0-51.0); %Monocytes 7.2 % (0.0-10.0); %Neutrophils 71.2 % (42.0-75.0); Hemoglobin 9.3 g/dL (14.0-18.0); Mean Corpuscular HGB CONC 32.1 g/dL (32.0-36.0); Mean Corpuscular Hemoglobin 25.6 pg (27.0-31.0); Mean Corpuscular Volume 79.9 fl (78.0-98.0); Platelet Count 334 10x3/uL (130-400); RBC Distribution Width 14.2 % (11.5-14.5); Red Blood Cell (RBC) Count 3.63 mill/uL (4.70-6.10)
[2022-09-27 05:12] LABS: ALT (SGPT) Less than 7 U/L (8-55); AST (SGOT) 8 U/L (5-34); Albumin 2.5 g/dL (3.5-5.0); Alkaline Phosphatase 52 U/L (40-110); Anion Gap 8 mmol/L (10-20); BUN (Urea Nitrogen) 25 mg/dL (8.4-25.7); Bilirubin, Total 0.3 mg/dL (0.2-1.2); Calc. Creatinine Clearance 42 mL/min (70-130); Calcium 8.6 mg/dL (7.8-10.44); Carbon Dioxide 20 mmol/L (22-29); Chloride 109 mmol/L (98-107); Estimated GFR 41; Globulin 3.9 g/dL (2.4-3.5); Glucose 138 mg/dL (70-105); Potassium 3.9 mmol/L (3.5-5.1); Protein, Total 6.4 g/dL (6.0-8.3); Sodium 133 mmol/L (136-145)
[2022-09-27] MEDS: Sodium Bicarbonate Tab 325 MG TAB PO SCH ×3 (05:45→22:55)
[2022-09-27] MEDS: Sodium Chloride 0.9% 1,000 ML IV SCH (05:45)
[2022-09-27] MEDS ORDERED: Carvedilol 6.25 MG TAB PO SCH (08:00)
[2022-09-27] MEDS: Heparin 5,000 UNITS/ML VIAL SC SCH ×3 (08:53→21:01)
[2022-09-27] MEDS: Aspirin 81 mg Enteric Coated Tablet PO SCH (08:53)
[2022-09-27] MEDS: Carvedilol 3.125 MG TAB PO SCH (09:26)
[2022-09-27] MEDS: Cefepime 1 GM in Sodium Chloride 0.9% 100 ML IVPB SCH ×2 (12:04→22:56)
[2022-09-27] MEDS: Carvedilol 6.25 MG TAB PO SCH (17:47)
[2022-09-27] MEDS: HumaLOG 300 UNITS/3 ML VIAL SC PRN (18:36)
[2022-09-27] MEDS: HYDROcodone/Acetaminophen 5/325 mg Tablet PO PRN (19:42)
[2022-09-27] MEDS: Insulin Glargine 30 UNITS/0.3 ML VIAL SC SCH (21:00)
[2022-09-27] MEDS: Atorvastatin Calcium 40 MG TAB PO SCH (21:03)
[2022-09-27] MEDS ORDERED: Ondansetron PF 4 MG/2 ML Vial IVP PRN (21:24)
[2022-09-27] MEDS ORDERED: Midodrine HCl 5 MG TAB PO SCH (23:15)
[2022-09-28 05:23] LABS: #Basophils 0.1 thou/uL (0.0-0.2); #Eosinphils 0.2 thou/uL (0.0-0.7); #Monocytes 0.7 thou/uL (0.11-0.59); #Neutrophils 7.8 thou/uL (1.40-6.50); %Basophils 0.5 % (0.0-1.0); %Eosinophils 1.7 % (0.0-10.0); %Lymphocytes 18.7 % (21.0-51.0); %Monocytes 6.2 % (0.0-10.0); %Neutrophils 72.9 % (42.0-75.0); Mean Corpuscular HGB CONC 34.1 g/dL (32.0-36.0); Mean Corpuscular Hemoglobin 26.8 pg (27.0-31.0); Mean Corpuscular Volume 78.6 fl (78.0-98.0); Mean Platelet Volume 7.8 fL (7.4-10.4); Platelet Count 321 10x3/uL (130-400); RBC Distribution Width 14.1 % (11.5-14.5); Red Blood Cell (RBC) Count 3.37 mill/uL (4.70-6.10); White Blood Cell (WBC) Count 10.7 10x3/uL (4.8-10.8)
[2022-09-28 05:53] LABS: Anion Gap 11 mmol/L (10-20); BUN (Urea Nitrogen) 25 mg/dL (8.4-25.7); Calc. Creatinine Clearance 41 mL/min (70-130); Calcium 8.6 mg/dL (7.8-10.44); Carbon Dioxide 19 mmol/L (22-29); Chloride 107 mmol/L (98-107); Estimated GFR 40; Glucose 186 mg/dL (70-105); Potassium 3.8 mmol/L (3.5-5.1); Sodium 133 mmol/L (136-145)
[2022-09-28] MEDS: Sodium Bicarbonate Tab 325 MG TAB PO SCH ×3 (06:05→20:53)
[2022-09-28] MEDS: Heparin 5,000 UNITS/ML VIAL SC SCH ×3 (09:24→20:55)
[2022-09-28] MEDS: Aspirin 81 mg Enteric Coated Tablet PO SCH (09:24)
[2022-09-28] MEDS: Carvedilol 6.25 MG TAB PO SCH ×2 (09:24→16:58)
[2022-09-28] MEDS: Midodrine HCl 5 MG TAB PO SCH ×3 (09:25→20:54)
[2022-09-28] MEDS: Polyethylene Glycol 3350 17 GM Packet PO SCH (09:25)
[2022-09-28] MEDS: Cefepime 1 GM in Sodium Chloride 0.9% 100 ML IVPB SCH ×2 (10:30→23:12)
[2022-09-28] MEDS: HYDROcodone/Acetaminophen 5/325 mg Tablet PO PRN (11:54)
[2022-09-28] MEDS ORDERED: Sodium Bicarbonate 150 MEQ in Dextrose 5% in Water 1,000 ML IV SCH (15:00)
[2022-09-28] MEDS: HumaLOG 300 UNITS/3 ML VIAL SC PRN (18:26)
[2022-09-28] MEDS: Atorvastatin Calcium 40 MG TAB PO SCH (20:53)
[2022-09-28] MEDS: Insulin Glargine 30 UNITS/0.3 ML VIAL SC SCH (20:54)
[2022-09-29 06:04] LABS: Anion Gap 10 mmol/L (10-20); BUN (Urea Nitrogen) 22 mg/dL (8.4-25.7); Calc. Creatinine Clearance 41 mL/min (70-130); Calcium 8.5 mg/dL (7.8-10.44); Carbon Dioxide 23 mmol/L (22-29); Chloride 105 mmol/L (98-107); Estimated GFR 39; Glucose 107 mg/dL (70-105); Potassium 3.8 mmol/L (3.5-5.1); Sodium 134 mmol/L (136-145)
[2022-09-29] MEDS ORDERED: hydrOXYzine 10 MG TAB PO PRN (07:09)
[2022-09-29] MEDS: Carvedilol 6.25 MG TAB PO SCH ×2 (09:15→18:03)
[2022-09-29] MEDS: Heparin 5,000 UNITS/ML VIAL SC SCH ×3 (09:15→20:32)
[2022-09-29] MEDS: Aspirin 81 mg Enteric Coated Tablet PO SCH (09:15)
[2022-09-29] MEDS: Midodrine HCl 5 MG TAB PO SCH ×3 (09:16→20:31)
[2022-09-29] MEDS: Polyethylene Glycol 3350 17 GM Packet PO SCH (09:16)
[2022-09-29 12:40] LABS: #Basophils 0.1 thou/uL (0.0-0.2); #Eosinphils 0.1 thou/uL (0.0-0.7); #Lymphocytes 1.7 thou/uL (1.20-3.40); #Monocytes 0.7 thou/uL (0.11-0.59); #Neutrophils 9.1 thou/uL (1.40-6.50); %Basophils 0.5 % (0.0-1.0); %Eosinophils 0.8 % (0.0-10.0); %Lymphocytes 14.8 % (21.0-51.0); %Monocytes 6.2 % (0.0-10.0); %Neutrophils 77.8 % (42.0-75.0); Hemoglobin 9.3 g/dL (14.0-18.0); Mean Corpuscular Hemoglobin 26.8 pg (27.0-31.0); Mean Corpuscular Volume 78.8 fl (78.0-98.0); Mean Platelet Volume 7.5 fL (7.4-10.4); Platelet Count 374 10x3/uL (130-400); RBC Distribution Width 14.1 % (11.5-14.5); Red Blood Cell (RBC) Count 3.46 mill/uL (4.70-6.10); White Blood Cell (WBC) Count 11.7 10x3/uL (4.8-10.8)
[2022-09-29 13:02] LABS: Anion Gap 11 mmol/L (10-20); BUN (Urea Nitrogen) 20 mg/dL (8.4-25.7); Calc. Creatinine Clearance 40 mL/min (70-130); Calcium 8.5 mg/dL (7.8-10.44); Carbon Dioxide 22 mmol/L (22-29); Chloride 104 mmol/L (98-107); Estimated GFR 39; Glucose 201 mg/dL (70-105); Potassium 3.7 mmol/L (3.5-5.1); Sodium 133 mmol/L (136-145)
[2022-09-29] MEDS: Cefepime 1 GM in Sodium Chloride 0.9% 100 ML IVPB SCH ×2 (14:01→22:49)
[2022-09-29] MEDS: HumaLOG 300 UNITS/3 ML VIAL SC PRN (18:03)
[2022-09-29] MEDS: Atorvastatin Calcium 40 MG TAB PO SCH (20:31)
[2022-09-29] MEDS: Insulin Glargine 30 UNITS/0.3 ML VIAL SC SCH (22:48)
[2022-09-30 05:41] LABS: #Basophils 0.1 thou/uL (0.0-0.2); #Eosinphils 0.1 thou/uL (0.0-0.7); #Lymphocytes 2.2 thou/uL (1.20-3.40); #Monocytes 0.7 thou/uL (0.11-0.59); #Neutrophils 7.7 thou/uL (1.40-6.50); %Basophils 0.5 % (0.0-1.0); %Eosinophils 1.4 % (0.0-10.0); %Lymphocytes 20.1 % (21.0-51.0); %Monocytes 6.8 % (0.0-10.0); %Neutrophils 71.2 % (42.0-75.0); Hemoglobin 9.1 g/dL (14.0-18.0); Mean Corpuscular Hemoglobin 26.1 pg (27.0-31.0); Mean Corpuscular Volume 79.2 fl (78.0-98.0); Mean Platelet Volume 7.4 fL (7.4-10.4); Platelet Count 384 10x3/uL (130-400); RBC Distribution Width 14.1 % (11.5-14.5); White Blood Cell (WBC) Count 10.8 10x3/uL (4.8-10.8)
[2022-09-30 05:59] LABS: Anion Gap 11 mmol/L (10-20); BUN (Urea Nitrogen) 24 mg/dL (8.4-25.7); Calc. Creatinine Clearance 37 mL/min (70-130); Calcium 8.4 mg/dL (7.8-10.44); Carbon Dioxide 23 mmol/L (22-29); Chloride 103 mmol/L (98-107); Estimated GFR 35; Glucose 168 mg/dL (70-105); Potassium 3.8 mmol/L (3.5-5.1); Sodium 133 mmol/L (136-145)
[2022-09-30] MEDS: Aspirin 81 mg Enteric Coated Tablet PO SCH (09:33)
[2022-09-30] MEDS: Carvedilol 6.25 MG TAB PO SCH ×2 (09:33→18:13)
[2022-09-30] MEDS: Polyethylene Glycol 3350 17 GM Packet PO SCH (09:33)
[2022-09-30] MEDS: Midodrine HCl 5 MG TAB PO SCH ×3 (09:34→21:44)
[2022-09-30] MEDS: HYDROcodone/Acetaminophen 5/325 mg Tablet PO PRN ×2 (09:34→14:15)
[2022-09-30] MEDS: Heparin 5,000 UNITS/ML VIAL SC SCH ×3 (09:35→21:44)
[2022-09-30] MEDS: Cefepime 1 GM in Sodium Chloride 0.9% 100 ML IVPB SCH ×2 (13:25→21:45)
[2022-09-30] MEDS: HumaLOG 300 UNITS/3 ML VIAL SC PRN ×3 (14:14→21:46)
[2022-09-30] MEDS: Atorvastatin Calcium 40 MG TAB PO SCH (21:43)
[2022-09-30] MEDS: Insulin Glargine 30 UNITS/0.3 ML VIAL SC SCH (21:44)
[2022-10-01 05:07] LABS: #Basophils 0.1 thou/uL (0.0-0.2); #Eosinphils 0.2 thou/uL (0.0-0.7); #Monocytes 0.7 thou/uL (0.11-0.59); %Basophils 0.5 % (0.0-1.0); %Eosinophils 2.2 % (0.0-10.0); %Lymphocytes 17.8 % (21.0-51.0); %Monocytes 6.3 % (0.0-10.0); %Neutrophils 73.1 % (42.0-75.0); Hemoglobin 9.1 g/dL (14.0-18.0); Mean Corpuscular HGB CONC 31.9 g/dL (32.0-36.0); Mean Corpuscular Hemoglobin 25.3 pg (27.0-31.0); Mean Corpuscular Volume 79.5 fl (78.0-98.0); Mean Platelet Volume 7.6 fL (7.4-10.4); Platelet Count 423 10x3/uL (130-400); White Blood Cell (WBC) Count 10.9 10x3/uL (4.8-10.8)
[2022-10-01 05:27] LABS: ALT (SGPT) Less than 7 U/L (8-55); AST (SGOT) 9 U/L (5-34); Albumin 2.5 g/dL (3.5-5.0); Alkaline Phosphatase 55 U/L (40-110); Anion Gap 13 mmol/L (10-20); BUN (Urea Nitrogen) 25 mg/dL (8.4-25.7); Bilirubin, Total 0.2 mg/dL (0.2-1.2); Calc. Creatinine Clearance 36 mL/min (70-130); Calcium 8.6 mg/dL (7.8-10.44); Carbon Dioxide 21 mmol/L (22-29); Chloride 103 mmol/L (98-107); Estimated GFR 35; Globulin 4.2 g/dL (2.4-3.5); Glucose 200 mg/dL (70-105); Potassium 3.8 mmol/L (3.5-5.1); Protein, Total 6.7 g/dL (6.0-8.3); Sodium 133 mmol/L (136-145)
[2022-10-01] MEDS: Carvedilol 6.25 MG TAB PO SCH ×2 (09:06→17:43)
[2022-10-01] MEDS: Aspirin 81 mg Enteric Coated Tablet PO SCH (09:06)
[2022-10-01] MEDS: Heparin 5,000 UNITS/ML VIAL SC SCH ×3 (09:06→20:06)
[2022-10-01] MEDS: Midodrine HCl 5 MG TAB PO SCH ×3 (09:07→20:04)
[2022-10-01] MEDS: Polyethylene Glycol 3350 17 GM Packet PO SCH (09:07)
[2022-10-01] MEDS: HYDROcodone/Acetaminophen 5/325 mg Tablet PO PRN ×2 (09:13→20:04)
[2022-10-01] MEDS: Cefepime 1 GM in Sodium Chloride 0.9% 100 ML IVPB SCH ×2 (10:42→22:52)
[2022-10-01] MEDS: fentaNYL 50 mcg/mL 1 mL Vial SLOW IVP PRN (12:27)
[2022-10-01] MEDS: HumaLOG 300 UNITS/3 ML VIAL SC PRN ×2 (14:05→17:43)
[2022-10-01] MEDS: Insulin Glargine 30 UNITS/0.3 ML VIAL SC SCH (20:05)
[2022-10-01] MEDS: Atorvastatin Calcium 40 MG TAB PO SCH (20:05)
[2022-10-02 07:41] LABS: #Eosinphils 0.3 thou/uL (0.0-0.7); #Lymphocytes 1.9 thou/uL (1.20-3.40); #Monocytes 0.6 thou/uL (0.11-0.59); #Neutrophils 7.4 thou/uL (1.40-6.50); %Basophils 0.3 % (0.0-1.0); %Eosinophils 2.5 % (0.0-10.0); %Monocytes 5.6 % (0.0-10.0); %Neutrophils 72.6 % (42.0-75.0); Hemoglobin 9.6 g/dL (14.0-18.0); Mean Corpuscular HGB CONC 32.9 g/dL (32.0-36.0); Mean Corpuscular Hemoglobin 25.8 pg (27.0-31.0); Mean Corpuscular Volume 78.6 fl (78.0-98.0); Mean Platelet Volume 7.4 fL (7.4-10.4); Platelet Count 487 10x3/uL (130-400); Red Blood Cell (RBC) Count 3.73 mill/uL (4.70-6.10); White Blood Cell (WBC) Count 10.2 10x3/uL (4.8-10.8)
[2022-10-02 08:07] LABS: Anion Gap 13 mmol/L (10-20); BUN (Urea Nitrogen) 25 mg/dL (8.4-25.7); Calc. Creatinine Clearance 38 mL/min (70-130); Calcium 8.8 mg/dL (7.8-10.44); Carbon Dioxide 21 mmol/L (22-29); Chloride 104 mmol/L (98-107); Estimated GFR 37; Glucose 95 mg/dL (70-105); Potassium 4.2 mmol/L (3.5-5.1); Sodium 134 mmol/L (136-145)
[2022-10-02] MEDS: Midodrine HCl 5 MG TAB PO SCH ×3 (08:31→21:27)
[2022-10-02] MEDS: Heparin 5,000 UNITS/ML VIAL SC SCH ×3 (08:32→21:28)
[2022-10-02] MEDS: Carvedilol 6.25 MG TAB PO SCH ×2 (08:32→16:11)
[2022-10-02] MEDS: Aspirin 81 mg Enteric Coated Tablet PO SCH (08:32)
[2022-10-02] MEDS: Polyethylene Glycol 3350 17 GM Packet PO SCH (08:33)
[2022-10-02] MEDS: Cefepime 1 GM in Sodium Chloride 0.9% 100 ML IVPB SCH (12:33)
[2022-10-02] MEDS: HYDROcodone/Acetaminophen 5/325 mg Tablet PO PRN ×2 (12:50→21:57)
[2022-10-02] MEDS: Cephalexin 250 MG/5 ML Oral Suspension PO SCH ×2 (16:18→21:27)
[2022-10-02] MEDS: HumaLOG 300 UNITS/3 ML VIAL SC PRN (16:21)
[2022-10-02] MEDS: Atorvastatin Calcium 40 MG TAB PO SCH (21:27)
[2022-10-02] MEDS: Insulin Glargine 30 UNITS/0.3 ML VIAL SC SCH (21:28)
[2022-10-03] MEDS: HumaLOG 300 UNITS/3 ML VIAL SC PRN (03:47)
[2022-10-03] MEDS: Carvedilol 6.25 MG TAB PO SCH ×2 (03:48→16:12)
[2022-10-03] MEDS: Midodrine HCl 5 MG TAB PO SCH ×3 (03:48→20:32)
[2022-10-03] MEDS: Aspirin 81 mg Enteric Coated Tablet PO SCH (08:03)
[2022-10-03] MEDS: Polyethylene Glycol 3350 17 GM Packet PO SCH (08:05)
[2022-10-03] MEDS: Heparin 5,000 UNITS/ML VIAL SC SCH ×3 (08:05→20:33)
[2022-10-03] MEDS: Sodium Chloride 0.9% 1,000 ML IV SCH ×2 (08:14→16:25)
[2022-10-03] MEDS: Cephalexin 250 MG/5 ML Oral Suspension PO SCH (08:15)
[2022-10-03] MEDS: cefTRIAXone\\ROCEPHIN 1 GM in Sodium Chloride 0.9% 100 ML IVPB SCH (10:42)
[2022-10-03] MEDS: Vancomycin 1 GM in Premix Bag 1 BAG IVPB SCH (11:20)
[2022-10-03] MEDS ORDERED: fentaNYL PF 100 MCG/2 ML SYRINGE ONE (13:19)
[2022-10-03] MEDS ORDERED: Ondansetron PF 4 MG/2 ML Vial ONE (14:07)
[2022-10-03] MEDS ORDERED: Lidocaine 1% PF 5 ML VIAL ONE (14:07)
[2022-10-03] MEDS ORDERED: PROPOFOL 200 MG/20 ML VIAL ONE (14:07)
[2022-10-03] MEDS ORDERED: fentaNYL 50 mcg/mL 1 mL Vial ONE (15:21)
[2022-10-03] MEDS: HYDROcodone/Acetaminophen 5/325 mg Tablet PO PRN ×2 (16:21→20:32)
[2022-10-03] MEDS ORDERED: Acetaminophen 500 MG TAB PO SCH (17:30)
[2022-10-03] MEDS: Atorvastatin Calcium 40 MG TAB PO SCH (20:32)
[2022-10-03] MEDS: Gabapentin 300 MG CAP PO SCH (20:32)
[2022-10-03] MEDS: Insulin Glargine 30 UNITS/0.3 ML VIAL SC SCH (20:33)
[2022-10-03] MEDS ORDERED: Acetaminophen 500 MG TAB PO PRN (21:00)
[2022-10-04] MEDS: Sodium Chloride 0.9% 1,000 ML IV SCH ×2 (03:19→15:33)
[2022-10-04] MEDS: Carvedilol 6.25 MG TAB PO SCH ×2 (06:20→18:15)
[2022-10-04 07:05] LABS: #Eosinphils 0.2 thou/uL (0.0-0.7); #Lymphocytes 1.4 thou/uL (1.20-3.40); #Monocytes 0.6 thou/uL (0.11-0.59); %Basophils 0.3 % (0.0-1.0); %Eosinophils 1.8 % (0.0-10.0); %Lymphocytes 13.8 % (21.0-51.0); %Monocytes 6.1 % (0.0-10.0); Mean Corpuscular HGB CONC 32.9 g/dL (32.0-36.0); Mean Corpuscular Hemoglobin 26.2 pg (27.0-31.0); Mean Corpuscular Volume 79.7 fl (78.0-98.0); Mean Platelet Volume 7.2 fL (7.4-10.4); Platelet Count 488 10x3/uL (130-400); RBC Distribution Width 13.8 % (11.5-14.5); White Blood Cell (WBC) Count 10.3 10x3/uL (4.8-10.8)
[2022-10-04 07:14] LABS: Anion Gap 14 mmol/L (10-20); BUN (Urea Nitrogen) 23 mg/dL (8.4-25.7); Calc. Creatinine Clearance 40 mL/min (70-130); Calcium 8.7 mg/dL (7.8-10.44); Carbon Dioxide 19 mmol/L (22-29); Chloride 106 mmol/L (98-107); Estimated GFR 38; Glucose 143 mg/dL (70-105); Potassium 4.5 mmol/L (3.5-5.1); Sodium 134 mmol/L (136-145)
[2022-10-04] MEDS: Gabapentin 300 MG CAP PO SCH ×3 (09:36→20:47)
[2022-10-04] MEDS: Polyethylene Glycol 3350 17 GM Packet PO SCH (09:36)
[2022-10-04] MEDS: Aspirin 81 mg Enteric Coated Tablet PO SCH (09:36)
[2022-10-04] MEDS: Midodrine HCl 5 MG TAB PO SCH ×3 (09:36→20:47)
[2022-10-04] MEDS: Heparin 5,000 UNITS/ML VIAL SC SCH ×3 (09:39→20:48)
[2022-10-04] MEDS: cefTRIAXone\\ROCEPHIN 1 GM in Sodium Chloride 0.9% 100 ML IVPB SCH (10:17)
[2022-10-04] MEDS: fentaNYL 50 mcg/mL 1 mL Vial SLOW IVP PRN (10:56)
[2022-10-04] MEDS: Vancomycin 1 GM in Premix Bag 1 BAG IVPB SCH (12:13)
[2022-10-04] MEDS: HumaLOG 300 UNITS/3 ML VIAL SC PRN ×3 (13:25→20:48)
[2022-10-04] MEDS: Atorvastatin Calcium 40 MG TAB PO SCH (20:47)
[2022-10-04] MEDS: Insulin Glargine 30 UNITS/0.3 ML VIAL SC SCH (20:48)
[2022-10-05] MEDS: Sodium Chloride 0.9% 1,000 ML IV SCH ×3 (04:26→19:04)
[2022-10-05 08:11] LABS: #Basophils 0.1 thou/uL (0.0-0.2); #Eosinphils 0.2 thou/uL (0.0-0.7); #Lymphocytes 1.9 thou/uL (1.20-3.40); #Monocytes 0.6 thou/uL (0.11-0.59); #Neutrophils 7.1 thou/uL (1.40-6.50); %Basophils 0.6 % (0.0-1.0); %Eosinophils 2.2 % (0.0-10.0); %Lymphocytes 19.3 % (21.0-51.0); Hemoglobin 8.8 g/dL (14.0-18.0); Mean Corpuscular HGB CONC 33.7 g/dL (32.0-36.0); Mean Corpuscular Hemoglobin 26.7 pg (27.0-31.0); Mean Platelet Volume 7.3 fL (7.4-10.4); Platelet Count 470 10x3/uL (130-400); RBC Distribution Width 13.9 % (11.5-14.5); Red Blood Cell (RBC) Count 3.31 mill/uL (4.70-6.10); White Blood Cell (WBC) Count 9.8 10x3/uL (4.8-10.8)
[2022-10-05 08:38] LABS: Anion Gap 9 mmol/L (10-20); BUN (Urea Nitrogen) 22 mg/dL (8.4-25.7); Calc. Creatinine Clearance 43 mL/min (70-130); Calcium 8.4 mg/dL (7.8-10.44); Carbon Dioxide 20 mmol/L (22-29); Chloride 109 mmol/L (98-107); Estimated GFR 42; Glucose 132 mg/dL (70-105); Potassium 4.1 mmol/L (3.5-5.1); Sodium 134 mmol/L (136-145)
[2022-10-05] MEDS: Carvedilol 6.25 MG TAB PO SCH ×2 (08:39→17:06)
[2022-10-05] MEDS: Gabapentin 300 MG CAP PO SCH ×3 (08:39→21:05)
[2022-10-05] MEDS: Midodrine HCl 5 MG TAB PO SCH ×3 (08:39→21:05)
[2022-10-05] MEDS: Aspirin 81 mg Enteric Coated Tablet PO SCH (08:39)
[2022-10-05] MEDS: Polyethylene Glycol 3350 17 GM Packet PO SCH (08:39)
[2022-10-05] MEDS: Heparin 5,000 UNITS/ML VIAL SC SCH ×3 (08:40→21:05)
[2022-10-05] MEDS: cefTRIAXone\\ROCEPHIN 1 GM in Sodium Chloride 0.9% 100 ML IVPB SCH (08:40)
[2022-10-05 11:24] LABS: Vancomycin, Trough 15.3 ug/mL
[2022-10-05] MEDS: Vancomycin 1 GM in Premix Bag 1 BAG IVPB SCH (11:49)
[2022-10-05] MEDS: HumaLOG 300 UNITS/3 ML VIAL SC PRN ×2 (13:15→17:03)
[2022-10-05] MEDS: Atorvastatin Calcium 40 MG TAB PO SCH (21:05)
[2022-10-05] MEDS: Insulin Glargine 30 UNITS/0.3 ML VIAL SC SCH (21:05)
[2022-10-06] MEDS: Sodium Chloride 0.9% 1,000 ML IV SCH (05:20)
[2022-10-06 07:23] LABS: #Eosinphils 0.2 thou/uL (0.0-0.7); #Lymphocytes 2.1 thou/uL (1.20-3.40); #Monocytes 0.5 thou/uL (0.11-0.59); #Neutrophils 6.1 thou/uL (1.40-6.50); %Basophils 0.5 % (0.0-1.0); %Eosinophils 2.5 % (0.0-10.0); %Lymphocytes 22.9 % (21.0-51.0); %Neutrophils 68.1 % (42.0-75.0); Hemoglobin 8.8 g/dL (14.0-18.0); Mean Corpuscular HGB CONC 33.7 g/dL (32.0-36.0); Mean Corpuscular Hemoglobin 26.6 pg (27.0-31.0); Mean Corpuscular Volume 78.8 fl (78.0-98.0); Mean Platelet Volume 7.2 fL (7.4-10.4); Platelet Count 483 10x3/uL (130-400); RBC Distribution Width 13.8 % (11.5-14.5); Red Blood Cell (RBC) Count 3.32 mill/uL (4.70-6.10)
[2022-10-06 07:45] LABS: Anion Gap 10 mmol/L (10-20); BUN (Urea Nitrogen) 23 mg/dL (8.4-25.7); Calc. Creatinine Clearance 42 mL/min (70-130); Calcium 8.3 mg/dL (7.8-10.44); Carbon Dioxide 20 mmol/L (22-29); Chloride 110 mmol/L (98-107); Estimated GFR 41; Glucose 146 mg/dL (70-105); Potassium 4.4 mmol/L (3.5-5.1); Sodium 136 mmol/L (136-145)
[2022-10-06] MEDS: Carvedilol 6.25 MG TAB PO SCH ×2 (08:55→16:37)
[2022-10-06] MEDS: Polyethylene Glycol 3350 17 GM Packet PO SCH (08:55)
[2022-10-06] MEDS: Midodrine HCl 5 MG TAB PO SCH ×3 (08:56→20:42)
[2022-10-06] MEDS: Heparin 5,000 UNITS/ML VIAL SC SCH ×3 (08:56→20:43)
[2022-10-06] MEDS: Gabapentin 300 MG CAP PO SCH ×3 (08:56→20:42)
[2022-10-06] MEDS: Aspirin 81 mg Enteric Coated Tablet PO SCH (08:56)
[2022-10-06] MEDS: traMADol HCl 50 MG TAB PO PRN (09:01)
[2022-10-06] MEDS: cefTRIAXone\\ROCEPHIN 1 GM in Sodium Chloride 0.9% 100 ML IVPB SCH (09:06)
[2022-10-06] MEDS: Vancomycin 1 GM in Premix Bag 1 BAG IVPB SCH (11:44)
[2022-10-06] MEDS: HumaLOG 300 UNITS/3 ML VIAL SC PRN ×3 (11:54→20:46)
[2022-10-06] MEDS: Atorvastatin Calcium 40 MG TAB PO SCH (20:42)
[2022-10-06] MEDS: Insulin Glargine 30 UNITS/0.3 ML VIAL SC SCH (20:43)
[2022-10-06] MEDS: Doxycycline 100 MG CAP PO SCH (20:43)
[2022-10-07] MEDS: HumaLOG 300 UNITS/3 ML VIAL SC PRN ×2 (05:03→12:19)
[2022-10-07] MEDS: Heparin 5,000 UNITS/ML VIAL SC SCH ×3 (08:43→21:00)
[2022-10-07] MEDS: Carvedilol 6.25 MG TAB PO SCH ×2 (08:44→17:06)
[2022-10-07] MEDS: Doxycycline 100 MG CAP PO SCH ×2 (08:45→21:07)
[2022-10-07] MEDS: Midodrine HCl 5 MG TAB PO SCH ×3 (08:45→21:01)
[2022-10-07] MEDS: Gabapentin 300 MG CAP PO SCH ×3 (08:45→21:00)
[2022-10-07] MEDS: Aspirin 81 mg Enteric Coated Tablet PO SCH (08:45)
[2022-10-07] MEDS: Polyethylene Glycol 3350 17 GM Packet PO SCH (08:45)
[2022-10-07 10:31] LABS: Vancomycin, Trough 21.6 ug/mL
[2022-10-07] MEDS: traMADol HCl 50 MG TAB PO PRN (10:54)
[2022-10-07 13:01] LABS: Anion Gap 14 mmol/L (10-20); BUN (Urea Nitrogen) 23 mg/dL (8.4-25.7); Calc. Creatinine Clearance 42 mL/min (70-130); Calcium 8.7 mg/dL (7.8-10.44); Carbon Dioxide 17 mmol/L (22-29); Chloride 104 mmol/L (98-107); Estimated GFR 41; Glucose 205 mg/dL (70-105); Potassium 4.8 mmol/L (3.5-5.1); Sodium 130 mmol/L (136-145)
[2022-10-07] MEDS: Atorvastatin Calcium 40 MG TAB PO SCH (21:00)
[2022-10-07] MEDS: Insulin Glargine 30 UNITS/0.3 ML VIAL SC SCH (21:00)
[2022-10-08] MEDS: Heparin 5,000 UNITS/ML VIAL SC SCH ×2 (08:36→14:17)
[2022-10-08] MEDS: Midodrine HCl 5 MG TAB PO SCH ×2 (08:37→14:16)
[2022-10-08] MEDS: Carvedilol 6.25 MG TAB PO SCH (08:38)
[2022-10-08] MEDS: Aspirin 81 mg Enteric Coated Tablet PO SCH (08:39)
[2022-10-08] MEDS: Gabapentin 300 MG CAP PO SCH ×2 (08:39→14:17)
[2022-10-08] MEDS: Doxycycline 100 MG CAP PO SCH (08:40)
[2022-10-08] MEDS: Polyethylene Glycol 3350 17 GM Packet PO SCH (08:40)
[2022-10-08 11:50] LABS: Anion Gap 13 mmol/L (10-20); BUN (Urea Nitrogen) 27 mg/dL (8.4-25.7); Calc. Creatinine Clearance 41 mL/min (70-130); Calcium 8.6 mg/dL (7.8-10.44); Carbon Dioxide 19 mmol/L (22-29); Chloride 106 mmol/L (98-107); Estimated GFR 40; Glucose 166 mg/dL (70-105); Potassium 5.1 mmol/L (3.5-5.1); Sodium 133 mmol/L (136-145)
[2022-10-08 12:31] VITALS: TEMP 97.8
[2022-10-08 17:38] VITALS: BP 116/73
== END 2022-10-08 14:55 | disposition home or self-care (01) | DRG 856 ==
LOC: ERS 14:17 → SUATTDRO 14:17 → ERHOLD 16:38 → INTOOBSV 16:38 → 2SW 19:38 → OBSVTOIN 09-27 09:35 → T4-A 10-01 15:51
PROVIDERS: ADMIT Internal Medicine; ATTEND Internal Medicine
PROC: 0Y6M0Z9 Detachment at Right Foot, Partial 1st Ray, Open Approach (ICD-10-PCS; principal; 2022-10-03)
PROC: 0QBQ0ZZ Excision of Right Toe Phalanx, Open Approach (ICD-10-PCS; 2022-10-03)
PROC: 3E03329 Introduction of Other Anti-infective into Peripheral Vein, Percutaneous Approach (ICD-10-PCS; 2022-10-03)
DX: T81.49XA Infection following a procedure, other surgical site, initial encounter (principal); A41.02 Sepsis due to Methicillin resistant Staphylococcus aureus; A41.81 Sepsis due to Enterococcus; T81.30XA Disruption of wound, unspecified, initial encounter; E87.1 Hypo-osmolality and hyponatremia; I13.0 Hypertensive heart and chronic kidney disease with heart failure and stage 1 through stage 4 chronic kidney disease, or unspecified chronic kidney disease; E87.20 Acidosis, unspecified; I50.22 Chronic systolic (congestive) heart failure; L03.115 Cellulitis of right lower limb; M86.171 Other acute osteomyelitis, right ankle and foot; N18.4 Chronic kidney disease, stage 4 (severe); N17.9 Acute kidney failure, unspecified; E11.52 Type 2 diabetes mellitus with diabetic peripheral angiopathy with gangrene; E11.69 Type 2 diabetes mellitus with other specified complication; E11.40 Type 2 diabetes mellitus with diabetic neuropathy, unspecified; E11.22 Type 2 diabetes mellitus with diabetic chronic kidney disease; E11.65 Type 2 diabetes mellitus with hyperglycemia; I25.10 Atherosclerotic heart disease of native coronary artery without angina pectoris; I25.5 Ischemic cardiomyopathy; J44.9 Chronic obstructive pulmonary disease, unspecified; D63.1 Anemia in chronic kidney disease; I25.2 Old myocardial infarction; Z79.4 Long term (current) use of insulin; Z79.899 Other long term (current) drug therapy; Z95.0 Presence of cardiac pacemaker; Z90.49 Acquired absence of other specified parts of digestive tract; Z87.891 Personal history of nicotine dependence; I95.1 Orthostatic hypotension; Y83.8 Other surgical procedures as the cause of abnormal reaction of the patient, or of later complication, without mention of misadventure at the time of the procedure
CPT/HCPCS: 36415; 36416; 70450; 71045; 80048; 80053; 80202; 81003; 81015; 82010; 82533; 82550; 82805; 83690; 83735; 83880; 83930; 84100; 84443; 84484; 85025; 86850; 86900; 86901; 87040; 87070; 87077; 87086; 87149; 87186; 87205; 88305; 88311; 93005; 93010; 93306; 93880; 96361; 96365; 96366; 96367; 96372; 96374; 96375; 96376; 97139; G0378; J0692; J0696; J1644; J1815; J2405; J2704; J3010; J3370; J3370-JW; J3490; J7050; J7070